=== PATIENT | female | born 1965 | race Caucasian/White ===

== ENCOUNTER 2017-02-02 09:28 | Day surgery (SDC) | payer MEDICAID, SELFPAY | END 2017-02-02 15:00 | disposition home or self-care (01) | PROVIDERS: Family Provider Family Medicine; Visit Provider Anesthesiology | DX: M51.16 Intervertebral disc disorders with radiculopathy, lumbar region (principal) | CPT/HCPCS: 63650 ×2; 63685; 80048; 85025; 96365; C1778; C1820; J3370 ==

== ENCOUNTER → 2017-02-15 10:46 | Outpatient (POV) | payer MEDICAID, SELFPAY ==
[2017-02-15 11:30] VITALS: BP 131/67; PULSE 85; RESP 18; BMI 48.7
--- NOTE | 2017-02-15 11:49 | HMH.PAINSOAP ---
[facility] Pain Management SOAP Note Subjective:: This patient is a pleasant 51-year-old white female who we are treating for low back pain with left leg radicular symptoms. She is 2 weeks out from spinal cord stimulator placement with a [employer] system. She was interrogated today. She has 5 programs through which she cycles. She is doing very well with 80-90% relief of her pain symptoms. She continues to recharge every week. She is much more functional and pain is significantly reduced. Objective:: Alert and oriented ?3 in no acute distress. Incisions are healing very nicely. She does have an abnormal gait. Motor strength of the lower extremities is 5/5. There is no sensory deficit. Spinal cord stimulator system was interrogated by the [employer] energy conservation representative and optimized. 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 Plan:: We will follow-up with her in 1 month. We will reevaluate her symptoms at that time.
--- NOTE | 2017-03-17 09:06 | PC.PHONENOTE ---
Called in prescription for Tramadol HCL 50mg, 1 tablet PO TID with 2 refills to [facility] pharmacy in [place]
== END ==
PROVIDERS: Family Provider Family Medicine; PCP Family Medicine; Visit Provider Anesthesiology
DX: M51.16 Intervertebral disc disorders with radiculopathy, lumbar region (principal); Z96.89 Presence of other specified functional implants
CPT/HCPCS: 99212

== ENCOUNTER → 2017-03-09 13:50 | Outpatient (CLI) | payer MEDICAID, SELFPAY ==
--- NOTE | 2017-03-09 13:56 | XR_ITS ---
XR hip RT 2-3V w/pelvis HISTORY: ITS.REASON: BILAT HIP PAIN ORDERING PHYSICIAN: Dandy Clark MD PATIENT AGE: 51 years COMPARISON: None FINDINGS: No fracture or dislocation is evident. No significant degenerative change. No lytic or blastic change. Unremarkable soft tissues IMPRESSION: Negative right hip
--- NOTE | 2017-03-09 13:56 | XR_ITS ---
XR hip LT 2-3V w/pelvis HISTORY: ITS.REASON: BILAT HIP PAIN ORDERING PHYSICIAN: Dandy Clark MD PATIENT AGE: 51 years COMPARISON: None FINDINGS: Mild osteoarthritic changes are present involving the left hip with osteophyte formation along the infra aspect of the acetabulum. No fracture or dislocation. Facet arthritic changes are present on the left at L5-S1 with degenerative disc disease at L4-L5. Epidural stimulator device is present as well. IMPRESSION: 1. No acute finding. 2. Mild osteoarthritis of the left hip
== END ==
PROVIDERS: PCP Family Medicine; Visit Provider Family Medicine
DX: M25.551 Pain in right hip (principal); M25.552 Pain in left hip
CPT/HCPCS: 73502

== ENCOUNTER → 2017-04-12 10:48 | Outpatient (POV) | payer MEDICAID, SELFPAY ==
[2017-04-12 10:54] VITALS: BP 143/86; PULSE 74; RESP 20; TEMP 36.2; O2SAT 92; BMI 40.4
--- NOTE | 2017-04-12 11:19 | HMH.PAINSOAP ---
[facility] Pain Management SOAP Note Subjective:: This patient is a pleasant 51-year-old white female who presents today for follow-up after her neurostimulator implant. Patient is doing very well and having 80-90% relief of her pain symptoms. Patient however has a new pain on her right hip. Patient has been continually using the spinal cord stimulator at all times. She states she is able to do dishes longer and able to be more active. She is also now ambulating without a cane. Patient is going to be reprogrammed by a [employer] associate financial representative today. Patient is having pain over the right hip which is worse when she walks. It is not radiating. It is focused over the greater trochanteric bursa on her right side. Her primary care physician diagnosed her with greater trochanteric bursitis. Patient is not on any anti-inflammatories at this time. Patient is still taking gabapentin 600 mg 1 p.o. 3 times daily and tramadol 50 p.o. 3 times daily. Patient states that she is not having any side effects to this medications. And it decreases her pain 50-60% with the neurostimulator. Patients [facility] #[id number] reviewed and appropriate. ROS General: no recent weight change, no fever, no sleep disturbances Respiratory: no cough, no shortness of air, no recurring pulmonary infections Cardiovascular/Peripheral Vascular: No chest pain, No palpitations, no edema, no shortness of breath. Gastrointestinal: no incontinence, normal bowel movements reported Genitourinary: no incontinence Musculoskeletal: Back pain, right hip pain Psychiatric: normal mood/ affect, Neurological: [denies weakness in extremities], [denies balance issues] Objective:: Physical Exam General: Alert and oriented x3, no acute distress, pleasant and cooperative, [on room air] Lungs: Resps E/U, Symmetrical chest expansion, Eyes: PERRL Musculoskeletal: Flexion and extension of lumbar spine somewhat guarded secondary to pain, deep tendon reflexes normal, strength in upper and lower extremities [5/5], [abnormal gait noted] Neurological: speech clear, counter pocket sewer equal, no gross sensory deficits Assessment:: Degenerative disc disease of lumbar spine multiple levels with lumbar radiculopathy symptoms Plan:: The patient will be reprogrammed today by the [employer] associate financial representative. I am pleased with her outcome after this neurostimulator implant. We will call in diclofenac 75 mg 1 p.o. twice daily for a month. We will also set her up with a right greater trochanteric bursa injection. This note was dictated using voice recognition software and may contain errors or omissions
--- NOTE | 2017-04-12 11:22 | P.CONS_ITS ---
[facility] Pain Management SOAP Note Subjective:: This patient is a pleasant 51-year-old white female who presents today for follow-up after her neurostimulator implant. Patient is doing very well and having 80-90% relief of her pain symptoms. Patient however has a new pain on her right hip. Patient has been continually using the spinal cord stimulator at all times. She states she is able to do dishes longer and able to be more active. She is also now ambulating without a cane. Patient is going to be reprogrammed by a [employer] assistance representative today. Patient is having pain over the right hip which is worse when she walks. It is not radiating. It is focused over the greater trochanteric bursa on her right side. Her primary care physician diagnosed her with greater trochanteric bursitis. Patient is not on any anti-inflammatories at this time. Patient is still taking gabapentin 600 mg 1 p.o. 3 times daily and tramadol 50 p.o. 3 times daily. Patient states that she is not having any side effects to this medications. And it decreases her pain 50-60% with the neurostimulator. Patients [facility] #[id number] reviewed and appropriate. ROS General: no recent weight change, no fever, no sleep disturbances Respiratory: no cough, no shortness of air, no recurring pulmonary infections Cardiovascular/Peripheral Vascular: No chest pain, No palpitations, no edema, no shortness of breath. Gastrointestinal: no incontinence, normal bowel movements reported Genitourinary: no incontinence Musculoskeletal: Back pain, right hip pain Psychiatric: normal mood/ affect, Neurological: [denies weakness in extremities], [denies balance issues] Objective:: Physical Exam General: Alert and oriented x3, no acute distress, pleasant and cooperative, [ on room air] Lungs: Resps E/U, Symmetrical chest expansion, Eyes: PERRL Musculoskeletal: Flexion and extension of lumbar spine somewhat guarded secondary to pain, deep tendon reflexes normal, strength in upper and lower extremities [5/5], [abnormal gait noted] Neurological: speech clear, picking machine operator equal, no gross sensory deficits Assessment:: Degenerative disc disease of lumbar spine multiple levels with lumbar radiculopathy symptoms Plan:: The patient will be reprogrammed today by the [employer] assistance representative. I am pleased with her outcome after this neurostimulator implant. We will call in diclofenac 75 mg 1 p.o. twice daily for a month. We will also set her up with a right greater trochanteric bursa injection. This note was dictated using voice recognition software and may contain errors or omissions
--- NOTE | 2017-04-13 08:38 | PC.PHONENOTE ---
04/12/17-called in Rx for Diclofenac 75mg BID, no refills to pt pharmacy
--- NOTE | 2017-04-13 10:51 | PC.PHONENOTE ---
callled in Rx for Gabapenting 600mg TID with 2 refills to pt's pharmacy
== END ==
PROVIDERS: Family Provider Family Medicine; PCP Family Medicine; Visit Provider Clinical Nurse Specialist Family Health
DX: M54.16 Radiculopathy, lumbar region (principal)
CPT/HCPCS: 99212

== ENCOUNTER 2017-05-06 13:47 | Day surgery (SDC) | payer MEDICAID, SELFPAY ==
[2017-05-06 13:52] VITALS: BP 112/82; PULSE 85; RESP 24; O2SAT 98; BMI 50.2
--- NOTE | 2017-05-06 14:43 | HMH.PMPROC ---
- Procedure Date: 05/06/17 Time: 14:43 Anesthesiologist:: Nilson Canchola MD Complications:: None Pre-procedure Diagnosis:: Trochanteric bursitis Post-procedure Diagnosis:: Same Indications for Procedure:: This patient is a pleasant 51-year-old white female who we are treating for low back pain and lumbar radiculopathy symptoms. She is doing well with her spinal cord stimulator. She does have tenderness over the right hip. She is tender over the right trochanteric bursa. We will do a right trochanteric bursa injection today. Procedure Details:: Right trochanteric bursa injection under fluoroscopy informed consent was obtained and the risk and benefits of the procedure was explained to the patient. The patient was taken to procedure room and placed prone on the procedure table. The right hip was prepped using ChloraPrep. The skin and subcutis tissues were anesthetized using lidocaine. I placed a 22-gauge spinal needle under fluoroscopic guidance and advanced until it contacted the right greater trochanter. Needle placement was confirmed with dye. After this we injected 5 mL bupivacaine 0.25% and Depo-Medrol 40 mg. Patient tolerated the procedure well with no complications. Plan and Disposition:: We will follow-up with her in 2 weeks. We will reevaluate her symptoms at that time.
[2017-05-06 14:45] VITALS: BP 146/87; PULSE 72; RESP 18
--- NOTE | 2017-05-06 14:46 | P.PCN_ITS ---
- Procedure Date: 05/06/17 Time: 14:43 Anesthesiologist:: Nilson Canchola MD Complications:: None Pre-procedure Diagnosis:: Trochanteric bursitis Post-procedure Diagnosis:: Same Indications for Procedure:: This patient is a pleasant 51-year-old white female who we are treating for low back pain and lumbar radiculopathy symptoms. She is doing well with her spinal cord stimulator. She does have tenderness over the right hip. She is tender over the right trochanteric bursa. We will do a right trochanteric bursa injection today. Procedure Details:: Right trochanteric bursa injection under fluoroscopy informed consent was obtained and the risk and benefits of the procedure was explained to the patient. The patient was taken to procedure room and placed prone on the procedure table. The right hip was prepped using ChloraPrep. The skin and subcutis tissues were anesthetized using lidocaine. I placed a 22- gauge spinal needle under fluoroscopic guidance and advanced until it contacted the right greater trochanter. Needle placement was confirmed with dye. After this we injected 5 mL bupivacaine 0.25% and Depo-Medrol 40 mg. Patient tolerated the procedure well with no complications. Plan and Disposition:: We will follow-up with her in 2 weeks. We will reevaluate her symptoms at that time.
[2017-05-06 14:49] VITALS: BP 145/89; PULSE 78; RESP 18
[2017-05-06 14:52] VITALS: BP 102/38; PULSE 76; O2SAT 98
== END 2017-05-06 15:00 | disposition home or self-care (01) ==
LOC: SC.PAINP 13:47
PROVIDERS: Family Provider Family Medicine; PCP Family Medicine; Visit Provider Anesthesiology
DX: M70.61 Trochanteric bursitis, right hip (principal)
CPT/HCPCS: 20610; J1040; Q9966

== ENCOUNTER → 2017-05-23 11:28 | Outpatient (POV) | payer MEDICAID, SELFPAY ==
[2017-05-23 11:34] VITALS: BP 150/74; PULSE 74; RESP 18; TEMP 36.6; O2SAT 98; BMI 50.2
--- NOTE | 2017-05-23 11:51 | HMH.PAINSOAP ---
[facility] Pain Management SOAP Note Subjective:: The pleasant 51-year-old white female who presents today for follow-up after her right bursa injection. Patient states she had a week of pain relief. Patient is having right bursa pain again. Patient would like to discuss weight loss. Patient currently weighs 340 pounds. Patient does have [employer] later in place she is wondering what can exercise that she can do with this. Patient rates her pain a 6 out of 10 today. Patient states that she is currently doing his home stretching program. She also states that after pancreatitis last year she has been watching her cholesterol and fat intake. ROS General: no recent weight change, no fever, no sleep disturbances Respiratory: no cough, no shortness of air, no recurring pulmonary infections Cardiovascular/Peripheral Vascular: No chest pain, No palpitations, no edema, no shortness of breath. Gastrointestinal: no incontinence, normal bowel movements reported Genitourinary: no incontinence Musculoskeletal: Back pain, bilateral leg pain Psychiatric: normal mood/ affect Neurological: [denies weakness in extremities], [denies balance issues] Objective:: Physical Exam General: Alert and oriented x3, no acute distress, pleasant and cooperative, [on room air] Lungs: Resps E/U, Symmetrical chest expansion, Eyes: PERRL Musculoskeletal: Flexion and extension of lumbar spine somewhat guarded secondary to pain, deep tendon reflexes normal, strength in upper and lower extremities [5/5], [abnormal gait noted] Neurological: speech clear, asthma educator equal, no gross sensory deficits Assessment:: Degenerative disc disease of the lumbar spine, lumbar radiculopathy, greater trochanteric bursitis Plan:: We will schedule physically for the patient in order to help her learn some exercises that she can do for her low back and bilateral leg pain while having a stimulator in place. Patient would like to focus on weight loss and I believe that this will be very beneficial. We will also get her nutritional consult. Patient does have thyroid disorder I discussed that she should follow-up with her primary care physician in order to determine if this is being managed. I will follow-up with this patient in 2 months. This note was dictated using voice recognition software and may contain errors or omissions
--- NOTE | 2017-05-23 11:55 | P.CONS_ITS ---
[facility] Pain Management SOAP Note Subjective:: The pleasant 51-year-old white female who presents today for follow-up after her right bursa injection. Patient states she had a week of pain relief. Patient is having right bursa pain again. Patient would like to discuss weight loss. Patient currently weighs 340 pounds. Patient does have [employer] later in place she is wondering what can exercise that she can do with this. Patient rates her pain a 6 out of 10 today. Patient states that she is currently doing his home stretching program. She also states that after pancreatitis last year she has been watching her cholesterol and fat intake. ROS General: no recent weight change, no fever, no sleep disturbances Respiratory: no cough, no shortness of air, no recurring pulmonary infections Cardiovascular/Peripheral Vascular: No chest pain, No palpitations, no edema, no shortness of breath. Gastrointestinal: no incontinence, normal bowel movements reported Genitourinary: no incontinence Musculoskeletal: Back pain, bilateral leg pain Psychiatric: normal mood/ affect Neurological: [denies weakness in extremities], [denies balance issues] Objective:: Physical Exam General: Alert and oriented x3, no acute distress, pleasant and cooperative, [ on room air] Lungs: Resps E/U, Symmetrical chest expansion, Eyes: PERRL Musculoskeletal: Flexion and extension of lumbar spine somewhat guarded secondary to pain, deep tendon reflexes normal, strength in upper and lower extremities [5/5], [abnormal gait noted] Neurological: speech clear, trip motor operator equal, no gross sensory deficits Assessment:: Degenerative disc disease of the lumbar spine, lumbar radiculopathy, greater trochanteric bursitis Plan:: We will schedule physically for the patient in order to help her learn some exercises that she can do for her low back and bilateral leg pain while having a stimulator in place. Patient would like to focus on weight loss and I believe that this will be very beneficial. We will also get her nutritional consult. Patient does have thyroid disorder I discussed that she should follow- up with her primary care physician in order to determine if this is being managed. I will follow-up with this patient in 2 months. This note was dictated using voice recognition software and may contain errors or omissions
== END ==
PROVIDERS: Family Provider Family Medicine; PCP Family Medicine; Visit Provider Clinical Nurse Specialist Family Health
DX: M54.16 Radiculopathy, lumbar region (principal)
CPT/HCPCS: 99212

== ENCOUNTER → 2017-07-18 11:15 | Outpatient (POV) | payer MEDICAID, SELFPAY ==
[2017-07-18 11:35] VITALS: BP 149/91; PULSE 93; RESP 18; O2SAT 98; BMI 47.4
--- NOTE | 2017-07-18 12:58 | HMH.PAINSOAP ---
[facility] Pain Management SOAP Note Subjective:: Patient is a pleasant 51-year-old white female who presents today for follow-up. Patient has been doing very well with her physical therapy and her [employer] neurostimulator. Patient states that her pain is mainly controlled however she is having a flareup in her bursitis and SI joint pain. Patient is more functional. Patient is done well with injections in the past. Patient is interested in getting a right SI and right bursa injection. I believe that this would be appropriate. Patient states that she is doing well on her gabapentin 600 mg 1 p.o. 3 times daily along with her tramadol 50 mg 1 p.o. 3 times daily. Patient denies side effects to her medication. Patient rates her pain an 8 out of 10 today however it is because she states she had some added responsibility to by taking on a 7 month old . ROS General: no recent weight change, no fever, no sleep disturbances Respiratory: no cough, no shortness of air, no recurring pulmonary infections Cardiovascular/Peripheral Vascular: No chest pain, No palpitations, no edema, no shortness of breath. Gastrointestinal: no incontinence, normal bowel movements reported Genitourinary: no incontinence Musculoskeletal: Right SI joint pain, right greater trochanteric bursa pain Psychiatric: normal mood/ affect Neurological: [denies weakness in extremities], [denies balance issues] Objective:: Physical Exam General: Alert and oriented x3, no acute distress, pleasant and cooperative, [on room air] Lungs: Resps E/U, Symmetrical chest expansion, Eyes: PERRL Musculoskeletal: Flexion and extension of lumbar spine somewhat guarded secondary to pain, deep tendon reflexes normal, strength in upper and lower extremities [5/5], antalgic gait noted, positive Gianni's test on the right side, extreme point tenderness over right greater trochanteric bursa and right SI joint. Neurological: speech clear, instrumentation chemist equal, no gross sensory deficits Assessment:: Sacroiliitis, trochanteric bursitis, degenerative disc disease of lumbar spine with lumbar radiculopathy. Plan:: Is doing well with physical therapy and her neurostimulator. She is to continue on with this. We will schedule her right greater trochanteric bursa injection and a right SI joint injection. I believe that this would be beneficial given her recent flare of symptoms. Patient has tried and failed anti-inflammatories. Patient currently in physical therapy. I will follow-up with the patient after her injections. We will refill the patient's gabapentin and tramadol. Patient's [facility] #[id number] reviewed and appropriate. DR Canchola has reviewed this chart and agrees with this plan of care. This note was dictated using voice recognition software and may contain errors or omissions
--- NOTE | 2017-07-18 13:01 | P.CONS_ITS ---
[facility] Pain Management SOAP Note Subjective:: Patient is a pleasant 51-year-old white female who presents today for follow- up. Patient has been doing very well with her physical therapy and her [email or web address] neurostimulator. Patient states that her pain is mainly controlled however she is having a flareup in her bursitis and SI joint pain. Patient is more functional. Patient is done well with injections in the past. Patient is interested in getting a right SI and right bursa injection. I believe that this would be appropriate. Patient states that she is doing well on her gabapentin 600 mg 1 p.o. 3 times daily along with her tramadol 50 mg 1 p.o. 3 times daily. Patient denies side effects to her medication. Patient rates her pain an 8 out of 10 today however it is because she states she had some added responsibility to by taking on a 7 month old infant. ROS General: no recent weight change, no fever, no sleep disturbances Respiratory: no cough, no shortness of air, no recurring pulmonary infections Cardiovascular/Peripheral Vascular: No chest pain, No palpitations, no edema, no shortness of breath. Gastrointestinal: no incontinence, normal bowel movements reported Genitourinary: no incontinence Musculoskeletal: Right SI joint pain, right greater trochanteric bursa pain Psychiatric: normal mood/ affect Neurological: [denies weakness in extremities], [denies balance issues] Objective:: Physical Exam General: Alert and oriented x3, no acute distress, pleasant and cooperative, [ on room air] Lungs: Resps E/U, Symmetrical chest expansion, Eyes: PERRL Musculoskeletal: Flexion and extension of lumbar spine somewhat guarded secondary to pain, deep tendon reflexes normal, strength in upper and lower extremities [5/5], antalgic gait noted, positive Gianni's test on the right side , extreme point tenderness over right greater trochanteric bursa and right SI joint. Neurological: speech clear, stationary plant operators equal, no gross sensory deficits Assessment:: Sacroiliitis, trochanteric bursitis, degenerative disc disease of lumbar spine with lumbar radiculopathy. Plan:: Is doing well with physical therapy and her neurostimulator. She is to continue on with this. We will schedule her right greater trochanteric bursa injection and a right SI joint injection. I believe that this would be beneficial given her recent flare of symptoms. Patient has tried and failed anti-inflammatories. Patient currently in physical therapy. I will follow-up with the patient after her injections. We will refill the patient's gabapentin and tramadol. Patient's [facility] #[id number] reviewed and appropriate. DR Canchola has reviewed this chart and agrees with this plan of care. This note was dictated using voice recognition software and may contain errors or omissions
== END ==
PROVIDERS: Family Provider Family Medicine; PCP Family Medicine; Visit Provider Clinical Nurse Specialist Family Health
DX: M46.1 Sacroiliitis, not elsewhere classified (principal); M70.61 Trochanteric bursitis, right hip
CPT/HCPCS: 99212

== ENCOUNTER 2017-08-12 14:00 | Outpatient (RCR) | payer MEDICARE, MEDICAID, SELFPAY | END 2017-08-12 14:01 | disposition home or self-care (01) | LOC: PT 14:00 | PROVIDERS: Family Provider Family Medicine; PCP Family Medicine; Visit Provider Anesthesiology | DX: M54.5 Low back pain (principal); M79.605 Pain in left leg; M79.604 Pain in right leg | CPT/HCPCS: 97010; 97110; 97140; 97164 ==

== ENCOUNTER → 2017-08-22 15:47 | Outpatient (POV) | payer MEDICAID, SELFPAY ==
[2017-08-22 16:03] VITALS: BP 140/60; PULSE 86; RESP 18; O2SAT 98; BMI 50.2
--- NOTE | 2017-08-23 08:56 | HMH.PAINSOAP ---
[facility] Pain Management SOAP Note Subjective:: Patient is a pleasant 51-year-old white female who we are treating for SI joint pain. Patient following up after right trochanteric bursa injection and right SI joint injection. Patient is doing well for this. Patient states she is having some pain over her left SI joint now. Patient's currently on gabapentin and tramadol and also has a [employer] neurostimulator. Patient and I discussed if she wanted to have another injection and she stated she would like to try to take some oral steroids prior to deciding if she needs an injection. I believe that this would be beneficial. Patient rates her pain a 6 out of 10 today. ROS General: no recent weight change, no fever, no sleep disturbances Respiratory: no cough, no shortness of air, no recurring pulmonary infections Cardiovascular/Peripheral Vascular: No chest pain, No palpitations, no edema, no shortness of breath. Gastrointestinal: no incontinence, normal bowel movements reported Genitourinary: no incontinence Musculoskeletal: Left SI joint pain Psychiatric: normal mood/ affect Neurological: [denies weakness in extremities], [denies balance issues] Objective:: Physical Exam General: Alert and oriented x3, no acute distress, pleasant and cooperative, [on room air] Lungs: Resps E/U, Symmetrical chest expansion Eyes: PERRL Musculoskeletal: Flexion and extension of lumbar spine somewhat guarded secondary to pain, deep tendon reflexes normal, strength in upper and lower extremities [5/5], [abnormal gait noted] a positive Gianni's test on the left side Neurological: speech clear, dope house operator helper equal, no gross sensory deficits Assessment:: Sacroiliitis, Plan:: We will refill the patient's tramadol 50 mg 1 p.o. 3 times daily and gabapentin 600 mg 1 p.o. 3 times daily. We will also call in prednisone 20 mg 2 tabs p.o. for 5 days. If the patient decides that she would like a left SI joint injection she can call our office if not she is to follow-up in 3 months. Patient's [facility] #[id number] reviewed and appropriate. Dr. Canchola is reviewed this chart and agrees with this plan of care. Patient has been prescribed a controlled substance after being counseled on the medication, medication safety, and possible side effects. [facility] report has been obtained and reviewed prior to prescription and found to be appropriate. Opioid contract was reviewed and signed by the patient, and that they have agreed to all of the terms set forth by our compliance program. This note was dictated using voice recognition software and may contain errors or omissions
--- NOTE | 2017-08-23 08:59 | P.CONS_ITS ---
[facility] Pain Management SOAP Note Subjective:: Patient is a pleasant 51-year-old white female who we are treating for SI joint pain. Patient following up after right trochanteric bursa injection and right SI joint injection. Patient is doing well for this. Patient states she is having some pain over her left SI joint now. Patient's currently on gabapentin and tramadol and also has a [employer] neurostimulator. Patient and I discussed if she wanted to have another injection and she stated she would like to try to take some oral steroids prior to deciding if she needs an injection. I believe that this would be beneficial. Patient rates her pain a 6 out of 10 today. ROS General: no recent weight change, no fever, no sleep disturbances Respiratory: no cough, no shortness of air, no recurring pulmonary infections Cardiovascular/Peripheral Vascular: No chest pain, No palpitations, no edema, no shortness of breath. Gastrointestinal: no incontinence, normal bowel movements reported Genitourinary: no incontinence Musculoskeletal: Left SI joint pain Psychiatric: normal mood/ affect Neurological: [denies weakness in extremities], [denies balance issues] Objective:: Physical Exam General: Alert and oriented x3, no acute distress, pleasant and cooperative, [ on room air] Lungs: Resps E/U, Symmetrical chest expansion Eyes: PERRL Musculoskeletal: Flexion and extension of lumbar spine somewhat guarded secondary to pain, deep tendon reflexes normal, strength in upper and lower extremities [5/5], [abnormal gait noted] a positive Gianni's test on the left side Neurological: speech clear, conductor symphonic orchestra equal, no gross sensory deficits Assessment:: Sacroiliitis, Plan:: We will refill the patient's tramadol 50 mg 1 p.o. 3 times daily and gabapentin 600 mg 1 p.o. 3 times daily. We will also call in prednisone 20 mg 2 tabs p.o. for 5 days. If the patient decides that she would like a left SI joint injection she can call our office if not she is to follow-up in 3 months. Patient's BINTA #[id number] reviewed and appropriate. Dr. Canchola is reviewed this chart and agrees with this plan of care. Patient has been prescribed a controlled substance after being counseled on the medication, medication safety, and possible side effects. BINTA report has been obtained and reviewed prior to prescription and found to be appropriate. Opioid contract was reviewed and signed by the patient, and that they have agreed to all of the terms set forth by our compliance program. This note was dictated using voice recognition software and may contain errors or omissions
== END ==
PROVIDERS: Family Provider Family Medicine; PCP Family Medicine; Visit Provider Clinical Nurse Specialist Family Health
DX: M46.1 Sacroiliitis, not elsewhere classified (principal)
CPT/HCPCS: 99212

== ENCOUNTER → 2017-11-14 10:25 | Outpatient (POV) | payer MEDICARE, MEDICAID, SELFPAY ==
[2017-11-14 12:25] VITALS: BP 115/60; PULSE 81; RESP 18; O2SAT 98; BMI 50.2
--- NOTE | 2017-11-14 12:42 | HMH.PAINSOAP ---
[facility] Pain Management SOAP Note Subjective:: Patient is a pleasant 52-year-old white female who we are treating for SI joint pain. Patient has been doing well however lately her SI joints have been bothering her. Patient also has pinpoint pain over her right greater trochanteric bursa. Patient is currently on tramadol 50 mg 1 p.o. 3 times daily and gabapentin 600 mg 1 p.o. 3 times daily. Patient's BINTA reviewed and appropriate. She rates her pain a 6 out of 10 today. ROS General: no recent weight change, no fever, no sleep disturbances Respiratory: no cough, no shortness of air, no recurring pulmonary infections Cardiovascular/Peripheral Vascular: No chest pain, No palpitations, no edema, no shortness of breath. Gastrointestinal: no incontinence, normal bowel movements reported Genitourinary: no incontinence Musculoskeletal: Right SI joint pain, right greater trochanteric bursa pain Psychiatric: normal mood/ affect, Neurological: [denies weakness in extremities], [denies balance issues] Objective:: Physical Exam General: Alert and oriented x3, no acute distress, pleasant and cooperative, [on room air] Lungs: Resps E/U, Symmetrical chest expansion, Eyes: PERRL Musculoskeletal: Flexion and extension of lumbar spine somewhat guarded secondary to pain, deep tendon reflexes normal, strength in upper and lower extremities [5/5], [abnormal gait noted] positive Gianni's test on the right side extreme point tenderness over right greater trochanteric bursa Neurological: speech clear, application support technician equal, no gross sensory deficits Assessment:: Sacroiliitis, bursitis Plan:: We will schedule right SI joint injection and a right greater trochanteric bursa injection we will refill her tramadol 50 mg 1 p.o. 3 times daily and her gabapentin 600 mg [address] Canchola is reviewed this chart and agrees with this plan of care. I will follow-up with the patient after her injections. Patient has been prescribed a controlled substance after being counseled on the medication, medication safety, and possible side effects. BINTA report has been obtained and reviewed prior to prescription and found to be appropriate. Opioid contract was reviewed and signed by the patient, and that they have agreed to all of the terms set forth by our compliance program. This note was dictated using voice recognition software and may contain errors or omissions
== END ==
PROVIDERS: Family Provider Family Medicine; PCP Family Medicine; Visit Provider Clinical Nurse Specialist Family Health
DX: M46.1 Sacroiliitis, not elsewhere classified (principal); M71.9 Bursopathy, unspecified
CPT/HCPCS: 99213

== ENCOUNTER → 2017-12-20 09:47 | Outpatient (POV) | payer MEDICARE, MEDICAID, SELFPAY ==
[2017-12-20 10:07] VITALS: BP 141/81; PULSE 82; RESP 18; O2SAT 98; BMI 47.4
--- NOTE | 2017-12-20 10:26 | P.CONS_ITS ---
[facility] Pain Management SOAP Note Subjective:: Patient is a pleasant 52-year-old white female who presents today for follow-up after SI joint injection bursa injection. Patient states her hip is doing much better however she is having overall pain and she rates her pain a 6 out of 10. Patient does have a neurostimulator which she states works very well for her. Patient is also on tramadol 50 mg 1 p.o. 3 times daily and gabapentin 600 mg 1 p.o. 3 times daily. Patient states she is having difficulty sleeping at nighttime. Patient's BINTA #[id number] reviewed. ROS General: no recent weight change, no fever, no sleep disturbances Respiratory: no cough, no shortness of air, no recurring pulmonary infections Cardiovascular/Peripheral Vascular: No chest pain, No palpitations, no edema, no shortness of breath. Gastrointestinal: no incontinence, normal bowel movements reported Genitourinary: no incontinence Musculoskeletal: Generalized pain Psychiatric: normal mood/ affect Neurological: [denies weakness in extremities], [denies balance issues] Objective:: Physical Exam General: Alert and oriented x3, no acute distress, pleasant and cooperative, on room air Lungs: Resps E/U, Symmetrical chest expansion, Eyes: PERRL Musculoskeletal: Flexion and extension of lumbar spine somewhat guarded secon jess to pain, deep tendon reflexes normal, strength in upper and lower extremities [5/5], [abnormal gait noted] Neurological: speech clear, endoscopic technician equal, no gross sensory deficits Assessment:: Degenerative disc disease lumbar spine with lumbar radiculopathy and sacroiliitis Plan:: We will increase her gabapentin 600 mg to 4 times a day. She is going to take 2 pills at nighttime to see if this benefits her sleeping. We will follow-up with her in 3 months and reassess her symptoms at that time. Patient has been instructed to call the office if she has any issues prior to her next appointment. This note was dictated using voice recognition software and may contain errors or omissions
== END ==
PROVIDERS: PCP Family Medicine; Visit Provider Clinical Nurse Specialist Family Health
DX: M51.16 Intervertebral disc disorders with radiculopathy, lumbar region (principal); M46.1 Sacroiliitis, not elsewhere classified
CPT/HCPCS: 99213

== ENCOUNTER → 2018-01-30 12:40 | Outpatient (POV) | payer MEDICARE, SELFPAY ==
--- NOTE | 2018-01-30 13:23 | XR_ITS ---
XR sacroiliac joint BI min 3V, XR hip LT 2-3V w/pelvis Ordering Physician: Valeria Madrigal Patient Age: 52 years: Female HISTORY: ITS.REASON: BURSITIS Bursitis. Sacroiliitis. Left hip pain. Pelvic pain. TECHNIQUE: SI joints: AP and lateral views of SI joints. . Left hip: AP and frog-leg view AP pelvis: Single AP radiograph COMPARISON :CT abdomen pelvis from 01/04/2018 also left hip with AP pelvis March 09, 2017. . SI JOINTS SI joints remain patent intact. No ankylosis. Trace asymmetric sclerosis along the lateral margin of the inferior left SI joint unimpressive and most likely mild degenerative changes. Sacrum appears intact on these views. Incidental note Stimulator device noted overlying the left buttock with leads extending into the lower L-spine . ======== LEFT HIP. WITH AP PELVIS The left hip is intact joint space well maintained. Femoral head normal contour and density... No AVN Large patient. Acetabulum satisfactory. AP pelvis. Osseous pelvis intact otherwise unremarkable. Postsurgical changes pelvis right hip intact. IMPRESSION 1. AP pelvis and SI joints intact-no significant findings. (Scant sclerosis along the iliac margin inferior SI joints and not felt to be of significance.) Left hip intact.: Negative
[2018-01-30 14:08] VITALS: BP 150/88; PULSE 88; RESP 18; O2SAT 98; BMI 52.4
--- NOTE | 2018-01-31 08:30 | HMH.PAINSOAP ---
[facility] Pain Management SOAP Note Subjective:: She is a pleasant 52-year-old white female who presents today for follow-up and neurostimulator reprogramming. Patient was seen by the [facility] internet sales representative. Patient states most of her pain is in her bilateral SI joints and left hip. She rates her pain a 7 out of 10 today. She is on tramadol 50 mg 1 p.o. 3 times daily and gabapentin 600 mg 1 p.o. 4 times daily. Patient has had good relief from injections in the past however she is unable to decide if it is her hip giving her problems are her SI joint giving her problems. ROS General: no recent weight change, no fever, no sleep disturbances Respiratory: no cough, no shortness of air, no recurring pulmonary infections Cardiovascular/Peripheral Vascular: No chest pain, No palpitations, no edema, no shortness of breath. Gastrointestinal: no incontinence, normal bowel movements reported Genitourinary: no incontinence Musculoskeletal: SI joint pain, left hip pain Psychiatric: normal mood/ affect Neurological: [denies weakness in extremities], [denies balance issues] Objective:: Physical Exam General: Alert and oriented x3, no acute distress, pleasant and cooperative, Lungs: Resps E/U, Symmetrical chest expansion, [CTA bilateral] Eyes: PERRL Musculoskeletal: Flexion and extension of lumbar spine somewhat guarded secondary to pain, deep tendon reflexes normal, strength in upper and lower extremities [5/5], abnormal gait noted, positive Gianni's test bilaterally Neurological: speech clear, parks worker equal, no gross sensory deficits Assessment:: Degenerative disc disease lumbar spine with lumbar radiculopathy and sacroiliitis Plan:: We will schedule her for bilateral SI joint injections. We will also get an x-ray of her left hip and her lateral SI joints. This note was dictated using voice recognition software and may contain errors or omissions
--- NOTE | 2018-01-31 08:34 | P.CONS_ITS ---
[facility] Pain Management SOAP Note Subjective:: She is a pleasant 52-year-old white female who presents today for follow-up and neurostimulator reprogramming. Patient was seen by the [facility] civil rights representative. Patient states most of her pain is in her bilateral SI joints and left hip. She rates her pain a 7 out of 10 today. She is on tramadol 50 mg 1 p.o. 3 times daily and gabapentin 600 mg 1 p.o. 4 times daily. Patient has had good relief from injections in the past however she is unable to decide if it is her hip giving her problems are her SI joint giving her problems. ROS General: no recent weight change, no fever, no sleep disturbances Respiratory: no cough, no shortness of air, no recurring pulmonary infections Cardiovascular/Peripheral Vascular: No chest pain, No palpitations, no edema, no shortness of breath. Gastrointestinal: no incontinence, normal bowel movements reported Genitourinary: no incontinence Musculoskeletal: SI joint pain, left hip pain Psychiatric: normal mood/ affect Neurological: [denies weakness in extremities], [denies balance issues] Objective:: Physical Exam General: Alert and oriented x3, no acute distress, pleasant and cooperative, Lungs: Resps E/U, Symmetrical chest expansion, [CTA bilateral] Eyes: PERRL Musculoskeletal: Flexion and extension of lumbar spine somewhat guarded secondary to pain, deep tendon reflexes normal, strength in upper and lower extremities [5/5], abnormal gait noted, positive Gianni's test bilaterally Neurological: speech clear, early childhood associate equal, no gross sensory deficits Assessment:: Degenerative disc disease lumbar spine with lumbar radiculopathy and sacroiliitis Plan:: We will schedule her for bilateral SI joint injections. We will also get an x- ray of her left hip and her lateral SI joints. This note was dictated using voice recognition software and may contain errors or omissions
--- NOTE | 2018-03-13 10:12 | PC.NURSE ---
TRAMADOL 50MG TID, GABAPENTIN 600MG TID WITH 2 REFILLS CALLED INTO [facility] PER PROVIDER ORDER
== END ==
PROVIDERS: PCP Family Medicine; Visit Provider Clinical Nurse Specialist Family Health
DX: M51.16 Intervertebral disc disorders with radiculopathy, lumbar region (principal); M46.1 Sacroiliitis, not elsewhere classified; Z96.89 Presence of other specified functional implants
CPT/HCPCS: 72202; 73502; 99213

== ENCOUNTER → 2018-02-20 15:12 | Outpatient (POV) | payer MEDICARE, SELFPAY ==
[2018-02-20 16:37] LABS: Alanine Aminotransferase 25 U/L (12-78); Albumin Level 2.9 gm/dL (3.4-5.0); Albumin/Globulin Ratio 0.6 (1.1-1.8); Alkaline Phosphatase 112 U/L (46-116); Amylase 113 U/L (25-115); Anion Gap 15.1 mEq/L (5-15); Aspartate Amino Transferase 13 U/L (15-37); Basophils # 0.1 K/mm3 (0-0.2); Basophils % 0.5 % (0.1-2.0); Bilirubin,Total 0.2 mg/dL (0.2-1.0); Blood Urea Nitrogen 20 mg/dL (7-18); Calcium 8.3 mg/dL (8.5-10.1); Carbon Dioxide 25 mmol/L (21.0-32.0); Chloride 105 mmol/L (98-107); Creatinine,Serum 1.21 mg/dL (0.55-1.02); Eosinophils # 0.2 K/mm3 (0.0-0.4); Eosinophils % 2.4 % (0.1-12.0); Estimated Glomerular Filt Rate 46 ml/min (>60); GFR (African American) 56 ML/MIN (>60); Glucose 105 mg/dL (74-106); Hematocrit 40.3 % (37.0-47.0); Hemoglobin 12.8 g/dL (12.2-16.2); Lipase 201 u/L (73-393); Lymphocytes # 1.3 K/mm3 (0.7-4.5); Lymphocytes % 13.4 % (10-50); Mean Corpuscular HGB Conc 31.8 g/dL (31.8-35.4); Mean Corpuscular Hemoglobin 28.5 pg (27.0-31.2); Mean Corpuscular Volume 89.7 fl (81-99); Mean Platelet Volume 6.9 fl (7.4-10.4); Monocytes # 0.4 K/mm3 (0.1-1.0); Neutrophils # 7.7 K/mm3 (1.8-7.8); Neutrophils % 79.7 % (37.0-80.0); Platelet Count 422 K/mm3 (142-424); Potassium 4.1 mmoL/L (3.5-5.1); Red Cell Distribution Width 15.9 % (11.5-17.5); Sodium 141 mmol/L (136-145); Total Protein,Serum 7.9 gm/dL (6.4-8.2); White Blood Count 9.7 K/mm3 (4.8-10.8)
== END ==
PROVIDERS: PCP Family Medicine; Visit Provider Nurse Practitioner Acute Care
DX: R10.9 Unspecified abdominal pain (principal)
CPT/HCPCS: 36415; 80053; 82150; 83690; 85025

== ENCOUNTER → 2018-04-10 12:42 | Outpatient (POV) | payer MEDICARE, SELFPAY ==
[2018-04-10 12:57] VITALS: BP 124/73; PULSE 97; RESP 18; O2SAT 98; BMI 49.4
--- NOTE | 2018-04-10 13:25 | P.CONS_ITS ---
[facility] Pain Management SOAP Note Subjective:: Patient is a pleasant 52-year-old white female who presents today for follow-up after bilateral SI joint injections. Patient still having quite a bit of left hip pain. Patient rates her pain a 6 out of 10. Patient has recently lost 6 pounds. Patient and I had a discussion about getting a an evaluation by an orthopedic surgeon. She is interested in this. ROS General: no recent weight change, no fever, no sleep disturbances Respiratory: no cough, no shortness of air, no recurring pulmonary infections Cardiovascular/Peripheral Vascular: No chest pain, No palpitations, no edema, no shortness of breath. Gastrointestinal: no incontinence, normal bowel movements reported Genitourinary: no incontinence Musculoskeletal: Low back pain, hip pain Psychiatric: normal mood/ affect Neurological: [denies weakness in extremities], [denies balance issues] Objective:: Physical Exam General: Alert and oriented x3, no acute distress, pleasant and cooperative, [on room air] Lungs: Resps E/U, Symmetrical chest expansion, Eyes: PERRL Musculoskeletal: Flexion and extension of lumbar spine somewhat guarded secondary to pain, deep tendon reflexes normal, strength in upper and lower extremities [5/5], [abnormal gait noted] Neurological: speech clear, jerker equal, no gross sensory deficits Assessment:: Sacroiliitis, bilateral hip pain, degenerative disc disease lumbar spine Plan:: We will send the patient for an orthopedic consultation. We will follow-up with the patient after her visit and reassess her at that time. Dr. Canchola has reviewed this note and agrees with this plan of care. This note was dictated using voice recognition software and may contain errors or omissions
== END ==
PROVIDERS: PCP Family Medicine; Visit Provider Clinical Nurse Specialist Family Health
DX: M46.1 Sacroiliitis, not elsewhere classified (principal); M51.36 Other intervertebral disc degeneration, lumbar region; M25.551 Pain in right hip; M25.552 Pain in left hip
CPT/HCPCS: 99213

== ENCOUNTER → 2018-05-01 14:09 | Outpatient (CLI) | payer MEDICARE, SELFPAY ==
--- NOTE | 2018-05-01 14:17 | XR_ITS ---
XR hip RT 2-3V w/pelvis Ordering Physician: Jessica Marinelli MD Patient Age: 52 years: Female HISTORY: ITS.REASON: right hip pain Right hip pain for many years. Large patient. TECHNIQUE: ...... RIGHT HIP: AP and frog-leg view ... AP Pelvis Included COMPARISON :March 09, 2017 right hip radiograph also SI joints from 01/30/2018 FINDINGS RIGHT HIP appears stable and intact with no change since prior study. The right femoral head and neck appear intact. Femoral head with normal contour. Joint space well maintained.. Slight roughening at the cap of greater trochanter. Small areas of calcification along posterior calf of the greater trochanter near ligamentous insertion were seen seen previously. AP pelvis. Osseous pelvis is intact. No lesions. Sacrum, SI joints, iliac bone and pubis unremarkable. Bones fairly well mineralized. The patient's large size does degrades image quality/resolution somewhat, but adequate quality studies. The hips appear symmetric. Degenerative disc changes, fairly pronounced at L4/5- to the right more so than left. Postsurgical changes at pelvis. Neurostimulator device partially imaged overlying the lower back IMPRESSION: 1.... Right hip, intact. No fracture. No significant change. 2. Osseous pelvis intact. 3. Degenerative disc changes L4/5
== END ==
PROVIDERS: PCP Family Medicine; Visit Provider Orthopaedic Surgery
DX: M25.551 Pain in right hip (principal)
CPT/HCPCS: 73502

== ENCOUNTER → 2018-05-08 10:19 | Outpatient (POV) | payer MEDICARE, SELFPAY ==
[2018-05-08 11:06] VITALS: BP 123/56; PULSE 75; RESP 18; O2SAT 98; BMI 49.4
--- NOTE | 2018-05-09 08:41 | P.CONS_ITS ---
[facility] Pain Management SOAP Note Subjective:: She has a pleasant 52-year-old white female who presents today for follow-up. Patient states that her pain is quite a bit worse. Patient is still struggling with losing weight. We had a long discussion about healthy eating habits. She is going to continue to try to lose weight. She has been seen by orthopedic. She is can continue physical therapy. She rates her pain today a 6 out of 10. ROS General: no recent weight change, no fever, no sleep disturbances Respiratory: no cough, no shortness of air, no recurring pulmonary infections Cardiovascular/Peripheral Vascular: No chest pain, No palpitations, no edema, no shortness of breath. Gastrointestinal: no incontinence, normal bowel movements reported Genitourinary: no incontinence Musculoskeletal: Low back pain, hip pain Psychiatric: normal mood/ affect Neurological: [denies weakness in extremities], [denies balance issues] Objective:: Physical Exam General: Alert and oriented x3, no acute distress, pleasant and cooperative, [on room air] Lungs: Resps E/U, Symmetrical chest expansion, Eyes: PERRL Musculoskeletal: Flexion and extension of lumbar spine somewhat guarded secondary to pain, deep tendon reflexes normal, strength in upper and lower extremities [5/5], [abnormal gait noted] Neurological: speech clear, audience coordinator equal, no gross sensory deficits Assessment:: Degenerative disc disease lumbar spine with lumbar radiculopathy, bilateral hip pain, sacroiliitis Plan:: Patient is going to continue to try to lose weight we will follow-up with her in 1 month and reassess her symptoms at that time. She is going to continue with her exercising. Patient does have a [employer] stimulator. We will have them come and reprogram her. Dr. Canchola has reviewed this note and agrees with this plan of care. This note was dictated using voice recognition software and may contain errors or omissions
--- NOTE | 2018-05-22 10:21 | PC.NURSE ---
90 DAY SUPPLY OF FLEXERIL 10MG TID AND DICLOFENAC 75MG BID WITH 1 REFILL CALLED INTO [facility] PER PROVIDER ORDER
== END ==
PROVIDERS: PCP Family Medicine; Visit Provider Clinical Nurse Specialist Family Health
DX: M51.16 Intervertebral disc disorders with radiculopathy, lumbar region (principal); M46.1 Sacroiliitis, not elsewhere classified; M25.551 Pain in right hip; M25.552 Pain in left hip
CPT/HCPCS: 99213

== ENCOUNTER → 2018-05-30 13:43 | Outpatient (POV) | payer MEDICARE, MEDICAID, SELFPAY ==
[2018-05-30 14:21] VITALS: BP 169/87; PULSE 94; RESP 22; O2SAT 95; BMI 50.2
--- NOTE | 2018-05-30 14:34 | HMH.PAINSOAP ---
[facility] Pain Management SOAP Note Subjective:: Pleasant 52-year-old white female who presents today for follow-up. Patient still having increased pain. She has been doing physical therapy. Patient rates her pain a 6 out of 10 today. She has met with the branch customer service representative from [employer] today to have her stimulator reprogrammed. ROS General: no recent weight change, no fever, no sleep disturbances Respiratory: no cough, no shortness of air, no recurring pulmonary infections Cardiovascular/Peripheral Vascular: No chest pain, No palpitations, no edema, no shortness of breath. Gastrointestinal: no incontinence, normal bowel movements reported Genitourinary: no incontinence Musculoskeletal: Back pain, leg pain Psychiatric: normal mood/ affect Neurological: [denies weakness in extremities], [denies balance issues] Objective:: Physical Exam General: Alert and oriented x3, no acute distress, pleasant and cooperative, [on room air] Lungs: Resps E/U, Symmetrical chest expansion, Eyes: PERRL Musculoskeletal: Flexion and extension of lumbar spine somewhat guarded secondary to pain, deep tendon reflexes normal, strength in upper and lower extremities [5/5], [abnormal gait noted] Neurological: speech clear, fleet sales associate equal, no gross sensory deficits Assessment:: Degenerative disc disease lumbar spine with lumbar radiculopathy Plan:: We will schedule the patient had a lumbar MRI patient states she has not had one recently. We will follow-up with the patient after her MRI reassess her symptoms at that time. Dr. Canchola has reviewed this note and agrees with this plan of care. This note was dictated using voice recognition software and may contain errors or omissions
--- NOTE | 2018-05-30 14:38 | P.CONS_ITS ---
[facility] Pain Management SOAP Note Subjective:: Pleasant 52-year-old white female who presents today for follow-up. Patient still having increased pain. She has been doing physical therapy. Patient rates her pain a 6 out of 10 today. She has met with the employee relations representative from [employer] today to have her stimulator reprogrammed. ROS General: no recent weight change, no fever, no sleep disturbances Respiratory: no cough, no shortness of air, no recurring pulmonary infections Cardiovascular/Peripheral Vascular: No chest pain, No palpitations, no edema, no shortness of breath. Gastrointestinal: no incontinence, normal bowel movements reported Genitourinary: no incontinence Musculoskeletal: Back pain, leg pain Psychiatric: normal mood/ affect Neurological: [denies weakness in extremities], [denies balance issues] Objective:: Physical Exam General: Alert and oriented x3, no acute distress, pleasant and cooperative, [on room air] Lungs: Resps E/U, Symmetrical chest expansion, Eyes: PERRL Musculoskeletal: Flexion and extension of lumbar spine somewhat guarded secondary to pain, deep tendon reflexes normal, strength in upper and lower extremities [5/5], [abnormal gait noted] Neurological: speech clear, aircraft machinist equal, no gross sensory deficits Assessment:: Degenerative disc disease lumbar spine with lumbar radiculopathy Plan:: We will schedule the patient had a lumbar MRI patient states she has not had one recently. We will follow-up with the patient after her MRI reassess her symptoms at that time. Dr. Canchola has reviewed this note and agrees with this plan of care. This note was dictated using voice recognition software and may contain errors or omissions
== END ==
PROVIDERS: PCP Family Medicine; Visit Provider Clinical Nurse Specialist Family Health
DX: M51.16 Intervertebral disc disorders with radiculopathy, lumbar region (principal)
CPT/HCPCS: 99212

== ENCOUNTER 2018-07-06 08:00 | Outpatient (RCR) | payer MEDICARE, MEDICAID, SELFPAY ==
--- NOTE | 2018-05-15 11:10 | HMH.PTOPEV ---
PT Outpatient Evaluation Rehab PT Outpatient Evaluation Start: 05/15/18 10:16 Freq: Status: Active Protocol: Document 05/15/18 10:16 NE (Rec: 05/15/18 11:10 NE [id number]) Electronically Signed By Danny Robb, PT 05/15/18 10:16 Outpatient Therapy Subjective History Subjective History Pt reports h/o chronic B hip and LBP for ~10 yrs, with most recent exacerbation beginning ~2 months ago. Pt reports insidious onset severe B hip ( lateral) pain, sheryl. w/ sidelying. PMH: lumbar spine nn stimulator/pain relief, spinal stenosis, OA Chief Complaint Pain Stiff Weakness Symptom Type Ache Throb Sharp Dull Symptoms Relieved By Rest/Positioning Heat Symptoms Aggravated By Sitting Standing Physical Activity Twisting Walking Prior Functional Limitations Lifting Housework Standing Sitting Walking Current Functional Limitations Lifting Housework Standing Sitting Walking Symptom Description Constant but Variable Level of pain today (0-10) 3 Pain scale - at its best (0-10) 2 Pain scale - at its worst (0-10) 10 Hip/Knee Eval Gait Observation General Gait Pattern Observation Antalgic Gait Assistive Device Assistive Devices None / NA Palpation Tenderness bilateral Knee Palpation Overall Comment 3/4 B GRT. TRO. AND PIRI. MM Hip Palpation Findings Tenderness MMT Hip Flexion Strength Grade 4- Good- Hip Abduction Strength Grade 4- Good- Hip Adduction Strength Grade 4- Good- Hip Extension Strength Grade 4- Good- Hip External Rotation Strength Grade 4- Good- Hip Internal Rotation Strength Grade 4- Good- Knee Extension Strength Grade 4 Good Knee Flexion Strength Grade 4 Good ROM Hip Flexion w/Knee Flexed Active Range 0-90 of Motion (degrees) Hip Flexion w/Knee Flexed Passive Range 0-100 of Motion (degrees) Hip External Rotation Active Range of 0-20 Motion (degrees)
== END 2018-07-06 08:05 | disposition home or self-care (01) ==
LOC: PT 08:00
PROVIDERS: Visit Provider Orthopaedic Surgery
DX: M70.61 Trochanteric bursitis, right hip (principal); M70.62 Trochanteric bursitis, left hip
CPT/HCPCS: 97010; 97014; 97033; 97035; 97110; 97163; G0283

== ENCOUNTER → 2018-07-24 07:47 | Outpatient (CLI) | payer MEDICARE, MEDICAID, SELFPAY ==
--- NOTE | 2018-07-24 07:56 | MR_ITS ---
MR lumbar spine wo con, MR 3-d myelogram/MRCP HISTORY: LBP X years. Bilateral hip and leg pain, numbness and tingling . ITS.REASON: BACK PAIN ORDERING PHYSICIAN: Valeria Madrigal APRN PATIENT AGE: 52 years Comparison: MRI 03/12/16 TECHNIQUE: Standard multiplanar multiecho sequences are performed without contrast. 3-D MIP and myelographic images are also rendered and reviewed FINDINGS: There is normal alignment. There is mild degenerative disc disease at T12-L1. There is a spinal stimulator present entering at the L2-L3 region on the right with artifact from a stimulator device. L1-L2: Unremarkable. L2-L3: Mild facet and ligamentum flavum hypertrophy. L3-L4: Mild facet and ligamentum flavum hypertrophy. L4-L5: There is degenerative disc disease with bulging disc with endplate hypertrophic changes along with facet and ligamentum flavum hypertrophy. There is moderate to severe bilateral lateral recess and foraminal narrowing. Mild broad-based left paracentral disc protrusion is present as before.. There is borderline canal stenosis. L5-S1: Mild facet and ligamentum flavum hypertrophy with mild left-sided foraminal narrowing. IMPRESSION: 1. Overall no significant change in the multilevel facet and ligamentum hypertrophy with lateral recess and foraminal narrowing. 2. Degenerative disc disease L4-5 with bulging disc with a small broad-based left paracentral disc protrusion along with facet and ligamentum flavum hypertrophy with moderate to severe bilateral lateral recess and foraminal narrowing overall not significant change. There is borderline canal stenosis at this level not significant changed 3. No disc herniation
== END ==
PROVIDERS: PCP Family Medicine; Visit Provider Clinical Nurse Specialist Family Health
DX: M54.5 Low back pain (principal)
CPT/HCPCS: 72148; 76376

== ENCOUNTER → 2018-08-01 09:15 | Outpatient (POV) | payer MEDICARE, MEDICAID, SELFPAY ==
[2018-08-01 09:59] VITALS: BP 136/89; PULSE 92; RESP 18; O2SAT 98; BMI 50.2
--- NOTE | 2018-08-01 10:07 | HMH.PAINSOAP ---
[facility] Pain Management SOAP Note Subjective:: Patient is a pleasant 52-year-old white female who presents today for follow-up after MRI. The patient is continuing to have low back pain nonradiating. She has had multiple injections in the past. The is currently on gabapentin 600 mg 1 tablet p.o. 3 times daily and tramadol 50 mg 1 tablet p.o. 3 times daily. [facility] #[id number] has been reviewed and is appropriate. Patient says she has had significant weight gain with gabapentin and says that this has caused her more distress. The side effects of medications were thoroughly discussed. The patient does not want to stop her gabapentin at this time. SHe does say I have creepy crawly's in my legs . She says that the gabapentin helps with this feeling. It is unable to perform a home stretching program because it is too painful. She does say that she takes ibuprofen at least 4 pills at night to relieve pain. ROS General: no recent weight change, no fever, no sleep disturbances Respiratory: no cough, no shortness of air, no recurring pulmonary infections Cardiovascular/Peripheral Vascular: No chest pain, No palpitations, no edema, no shortness of breath. Gastrointestinal: no incontinence, normal bowel movements reported Genitourinary: no incontinence Musculoskeletal: Back pain Psychiatric: normal mood/ affect, [denies depression], [denies anxiety] Neurological: [denies weakness in extremities], [denies balance issues] Objective:: Physical Exam General: Alert and oriented x3, no acute distress, pleasant and cooperative, [on room air] Lungs: Resps E/U, Symmetrical chest expansion, Eyes: PERRL Musculoskeletal: Flexion and extension of lumbar spine somewhat guarded secondary to pain, deep tendon reflexes normal, strength in upper and lower extremities [5/5], [abnormal gait noted] Neurological: speech clear, paint line production supervisor equal, no gross sensory deficits Assessment:: Degenerative disc disease lumbar spine with lumbar radiculopathy Plan:: We will get the patient scheduled to see the [employer] spinal stimulator loss prevention representative. She is not interested in any injections at this time. I did offer the patient a consultation with a surgeon, for which she is uninterested in this at this time, as well. The patient does want to continue with her gabapentin. We discussed a walking regimen, along with a weight loss program. Patient is not interested in either at this time. She is agreeable to meeting with the stimulator loss prevention representative. We will follow-up with her in 1 month to see if she has had any relief after reprogramming. She is been instructed to call the office if she has any concerns prior to her next appointment. Dr. Canchola has reviewed this note and agrees with this plan of care. This note was dictated using voice recognition software and may contain errors or omissions
--- NOTE | 2018-08-01 10:10 | P.CONS_ITS ---
[place] Pain Management SOAP Note Subjective:: Patient is a pleasant 52-year-old white female who presents today for follow-up after MRI. The patient is continuing to have low back pain nonradiating. She has had multiple injections in the past. The is currently on gabapentin 600 mg 1 tablet p.o. 3 times daily and tramadol 50 mg 1 tablet p.o. 3 times daily. [facility] #[id number] has been reviewed and is appropriate. Patient says she has had significant weight gain with gabapentin and says that this has caused her more distress. The side effects of medications were thoroughly discussed. The patient does not want to stop her gabapentin at this time. SHe does say I have creepy crawly's in my legs . She says that the gabapentin helps with this feeling. It is unable to perform a home stretching program because it is too painful. She does say that she takes ibuprofen at least 4 pills at night to relieve pain. ROS General: no recent weight change, no fever, no sleep disturbances Respiratory: no cough, no shortness of air, no recurring pulmonary infections Cardiovascular/Peripheral Vascular: No chest pain, No palpitations, no edema, no shortness of breath. Gastrointestinal: no incontinence, normal bowel movements reported Genitourinary: no incontinence Musculoskeletal: Back pain Psychiatric: normal mood/ affect, [denies depression], [denies anxiety] Neurological: [denies weakness in extremities], [denies balance issues] Objective:: Physical Exam General: Alert and oriented x3, no acute distress, pleasant and cooperative, [on room air] Lungs: Resps E/U, Symmetrical chest expansion, Eyes: PERRL Musculoskeletal: Flexion and extension of lumbar spine somewhat guarded secondary to pain, deep tendon reflexes normal, strength in upper and lower extremities [5/5], [abnormal gait noted] Neurological: speech clear, rotary filter operator equal, no gross sensory deficits Assessment:: Degenerative disc disease lumbar spine with lumbar radiculopathy Plan:: We will get the patient scheduled to see the [employer] spinal stimulator assisted sales representative. She is not interested in any injections at this time. I did offer the patient a consultation with a surgeon, for which she is uninterested in this at this time, as well. The patient does want to continue with her gabapentin. We discussed a walking regimen, along with a weight loss program. Patient is not interested in either at this time. She is agreeable to meeting with the stimulator assisted sales representative. We will follow-up with her in 1 month to see if she has had any relief after reprogramming. She is been instructed to call the office if she has any concerns prior to her next appointment. Dr. Canchola has reviewed this note and agrees with this plan of care. This note was dictated using voice recognition software and may contain errors or omissions
== END ==
PROVIDERS: PCP Family Medicine; Visit Provider Clinical Nurse Specialist Family Health
DX: M51.16 Intervertebral disc disorders with radiculopathy, lumbar region (principal)
CPT/HCPCS: 99212

== ENCOUNTER → 2018-08-28 10:05 | Outpatient (POV) | payer MEDICARE, MEDICAID, SELFPAY ==
[2018-08-28 10:24] VITALS: BP 132/70; PULSE 78; RESP 18; O2SAT 98; BMI 48.8
--- NOTE | 2018-08-28 10:27 | HMH.PAINSOAP ---
[facility] Pain Management SOAP Note Subjective:: Patient is a pleasant 52-year-old white female who presents today for follow-up. Patient is being treated for low back pain with lumbar radiculopathy symptoms. At the last visit patient was supposed to meet with [employer] manufacturer's service representative , but has not met with him as of today. She says she is scheduled to see him on Tuesday. Patient says that her charging system for her stimulator was not working over the weekend and she had severe pain. She says she now realizes how much the stimulator helps her with her pain. She is continuing to have pain to bilateral hips and says it is worse with walking. Patient's [facility] #[id number] has been reviewed and is appropriate. Patient is currently taking tramadol 50 mg 1 p.o. 3 times daily and gabapentin 600 mg 1 p.o. 3 times daily. She is continuing with anti-inflammatories. She also says that she was doing home stretching program, but does not feel like it is helping much. She is interested in discussing injective therapy options today. Review of Systems General: No recent weight changes, no fever, no sleep disturbances Respiratory: No cough, no shortness of air, no recurring pulmonary infections Cardiovascular/peripheral vascular: No chest pain, no palpitations, no edema, no shortness of breath Gastrointestinal: No new onset incontinence, normal bowel movements reported Genitourinary: No new onset incontinence Musculoskeletal: Back pain, leg pain Psychiatric: Normal mood/affect Neurological: [Denies weakness in extremities], [denies balance issues] Objective:: Physical exam General: Alert and oriented x3, no acute distress, pleasant and cooperative, [on room air] Lungs: Respirations even and unlabored, symmetrical chest expansion Eyes: PERRL Musculoskeletal: Flexion and extension of lumbar spine somewhat guarded secondary to pain, deep tendon reflexes normal, strength in upper and lower extremities [5/5], [abnormal gait noted] Neurological: Speech clear, survey director equal, no gross sensory deficit Assessment:: Degenerative disc disease lumbar spine with lumbar radiculopathy, bilateral greater trochanteric bursitis Plan:: Patient is scheduled to see [employer] spinal stimulator manufacturer's service representative on Tuesday. She is also interested in injective therapy. We will schedule her for bilateral bursa injections. The patient is not on any anticoagulation therapy. She will continue her home stretching program and anti-inflammatories. We will refill her tramadol 50 mg 1 p.o. 3 times daily. We will see the patient for her procedure and will up with her in the office after that procedure to reassess her symptoms at that time. She is been instructed to call the office if she has any concerns prior to her next appointment. Dr. Canchola has reviewed this note and agrees with this plan of care. This note was dictated using voice recognition software and make contain errors or omissions.
--- NOTE | 2018-08-28 10:31 | P.CONS_ITS ---
[facility] Pain Management SOAP Note Subjective:: Patient is a pleasant 52-year-old white female who presents today for follow-up. Patient is being treated for low back pain with lumbar radiculopathy symptoms. At the last visit patient was supposed to meet with [employer] sales representatives , but has not met with him as of today. She says she is scheduled to see him on Tuesday. Patient says that her charging system for her stimulator was not working over the weekend and she had severe pain. She says she now realizes how much the stimulator helps her with her pain. She is continuing to have pain to bilateral hips and says it is worse with walking. Patient's [facility] #[id number] has been reviewed and is appropriate. Patient is currently taking tramadol 50 mg 1 p.o. 3 times daily and gabapentin 600 mg 1 p.o. 3 times daily. She is continuing with anti-inflammatories. She also says that she was doing home stretching program, but does not feel like it is helping much. She is interested in discussing injective therapy options today. Review of Systems General: No recent weight changes, no fever, no sleep disturbances Respiratory: No cough, no shortness of air, no recurring pulmonary infections Cardiovascular/peripheral vascular: No chest pain, no palpitations, no edema, no shortness of breath Gastrointestinal: No new onset incontinence, normal bowel movements reported Genitourinary: No new onset incontinence Musculoskeletal: Back pain, leg pain Psychiatric: Normal mood/affect Neurological: [Denies weakness in extremities], [denies balance issues] Objective:: Physical exam General: Alert and oriented x3, no acute distress, pleasant and cooperative, [on room air] Lungs: Respirations even and unlabored, symmetrical chest expansion Eyes: PERRL Musculoskeletal: Flexion and extension of lumbar spine somewhat guarded secondary to pain, deep tendon reflexes normal, strength in upper and lower extremities [5/5], [abnormal gait noted] Neurological: Speech clear, offset press operator equal, no gross sensory deficit Assessment:: Degenerative disc disease lumbar spine with lumbar radiculopathy, bilateral greater trochanteric bursitis Plan:: Patient is scheduled to see [id number] spinal stimulator sales representatives on Tuesday. She is also interested in injective therapy. We will schedule her for bilateral bursa injections. The patient is not on any anticoagulation therapy. She will continue her home stretching program and anti-inflammatories. We will refill her tramadol 50 mg 1 p.o. 3 times daily. We will see the patient for her procedure and will up with her in the office after that procedure to reassess her symptoms at that time. She is been instructed to call the office if she has any concerns prior to her next appointment. Dr. Canchola has reviewed this note and agrees with this plan of care. This note was dictated us ing voice recognition software and make contain errors or omissions.
== END ==
PROVIDERS: PCP Family Medicine; Visit Provider Clinical Nurse Specialist Family Health
DX: M51.16 Intervertebral disc disorders with radiculopathy, lumbar region (principal); M70.61 Trochanteric bursitis, right hip; M70.62 Trochanteric bursitis, left hip
CPT/HCPCS: 99212

== ENCOUNTER → 2018-10-03 09:38 | Outpatient (POV) | payer MEDICARE, MEDICAID, SELFPAY ==
--- NOTE | 2018-10-03 10:10 | P.CONS_ITS ---
[facility] Pain Management SOAP Note Subjective:: Patient is a pleasant 53-year-old white female who presents today for follow-up after bilateral bursa injections. She is doing well she rates her pain 8 out of 10 today however until 2 days ago she had 90% relief of her hip pain. She is also got a [employer] stimulator which she states is working well for her at this time. ROS General: no recent weight change, no fever, no sleep disturbances Respiratory: no cough, no shortness of air, no recurring pulmonary infections Cardiovascular/Peripheral Vascular: No chest pain, No palpitations, no edema, no shortness of breath. Gastrointestinal: no incontinence, normal bowel movements reported Genitourinary: no incontinence Musculoskeletal: Bilateral hip pain Psychiatric: normal mood/ affect Neurological: [denies weakness in extremities], [denies balance issues] Objective:: Physical Exam General: Alert and oriented x3, no acute distress, pleasant and cooperative, [on room air] Lungs: Resps E/U, Symmetrical chest expansion, Eyes: PERRL Musculoskeletal: Flexion and extension of lumbar spine somewhat guarded secondary to pain, deep tendon reflexes normal, strength in upper and lower extremities [5/5], [abnormal gait noted] extreme point tenderness over bilateral greater trochanteric bursa Neurological: speech clear, citrus peeler equal, no gross sensory deficits Assessment:: Bursitis Plan:: We will schedule the patient for greater trochanteric bursa injections bilaterally. Overall patient is done well With this in the past. Dr. Canchola has reviewed this note and agrees with this plan of care. This note was dictated using voice recognition software and may contain errors or omissions Pain Management Hx Components *Have you ever received a pneumonia vaccine?: No *Have you received a flu vaccine this season?: No - *Social History *Occupational Status:: other *Travel in the last 8 weeks: None
[2018-10-03 10:20] VITALS: BP 116/67; PULSE 79; RESP 18; O2SAT 98; BMI 50.2
== END ==
PROVIDERS: PCP Family Medicine; Visit Provider Clinical Nurse Specialist Family Health
DX: M70.61 Trochanteric bursitis, right hip; M70.62 Trochanteric bursitis, left hip
CPT/HCPCS: 99212

== ENCOUNTER → 2018-11-06 09:44 | Outpatient (POV) | payer MEDICARE, MEDICAID, SELFPAY ==
[2018-11-06 10:22] VITALS: BP 120/72; PULSE 84; RESP 18; O2SAT 98; BMI 48.8
--- NOTE | 2018-11-06 10:40 | HMH.PAINSOAP ---
[facility] Pain Management SOAP Note Subjective:: Patient is a 53-year-old white female who presents today for follow-up after bilateral bursa injection. Patient's right hip is pain-free however it is a 10 out of 10 on the left hip. She gets good relief with her injections up to 90% for several weeks. Patient would like to repeat this at the 6-week kori. Patient's been seen by Ortho and sent to physical therapy patient completed 2 weeks of this and stated it was not helping. Patient is wondering if her gabapentin could be causing her weight gain. Patient states she has been actively trying to lose weight however she has gained more weight. We discussed switching medication ROS General: no recent weight change, no fever, no sleep disturbances Respiratory: no cough, no shortness of air, no recurring pulmonary infections Cardiovascular/Peripheral Vascular: No chest pain, No palpitations, no edema, no shortness of breath. Gastrointestinal: no incontinence, normal bowel movements reported Genitourinary: no incontinence Musculoskeletal: Bilateral hip pain Psychiatric: normal mood/ affect, Neurological: [denies weakness in extremities], [denies balance issues] Objective:: Physical Exam General: Alert and oriented x3, no acute distress, pleasant and cooperative, [on room air] morbidly obese Lungs: Resps E/U, Symmetrical chest expansion, Eyes: PERRL Musculoskeletal: Flexion and extension of Lumbar spine somewhat guarded secondary to pain, deep tendon reflexes normal, strength in upper and lower extremities [5/5], [abnormal gait noted] extreme tenderness over bilateral bursa Neurological: speech clear, drapery maker equal, no gross sensory deficits Assessment:: Bursitis Plan:: We will schedule her bilateral bursa injections 6 to 8 weeks from her previous injections. We will take her off gabapentin and switch her to Lyrica 75 mg 1 p.o. twice daily. I will follow-up with her after her injection reassess her symptoms at that time she is been instructed to call the office if she has any issues prior to her next appointment. Dr. Canchola has reviewed this note and agrees with this plan of care. This note was dictated using voice recognition software and may contain errors or omissions [facility] History I have reviewed the patient's past medical history: Yes Medical History: Reports:: Anxiety, Depression, Gastroesophageal Reflux Disease(GERD), Hypertension Denies:: Cancer, Diabetes Mellitus Type 1, Diabetes Mellitus Type 2, Hyperlipidemia, Internal Pacemaker, Lung Disease, MRSA, Seizures *Have you ever received a pneumonia vaccine?: Yes *Have you received a flu vaccine this season?: Yes Other Medical History: Reports: Arthritis, Glaucoma, Hypothyroidism, Thyroid Disease Laterality Cases: Right: Arthroscopy Knee, Bilateral: Other Other Surgeries: Yes: Cholecystectomy, Colonoscopy, EGD, Hysterectomy-Total, Other (stimulator implant). No: Pacemaker Amputation: No Fractures: Yes (LEFT WRIST) - *Social History Smoking Status: Never smoker Alcohol Intake: never Substance Use Type: denies use *Occupational Status:: other Housing: house Household Members: spouse, other *Travel in the last 8 weeks: None - Psychiatric History Pschychiatric History:: Reports:: Anxiety, Depression Family Hx:: Cancer, Coronary Artery Disease, Diabetes, Hyperlipidemia, Hypertension, Thyroid Disorder
--- NOTE | 2018-11-06 10:44 | P.CONS_ITS ---
[facility] Pain Management SOAP Note Subjective:: Patient is a 53-year-old white female who presents today for follow-up after bilateral bursa injection. Patient's right hip is pain-free however it is a 10 out of 10 on the left hip. She gets good relief with her injections up to 90% for several weeks. Patient would like to repeat this at the 6-week kori. Patient's been seen by Ortho and sent to physical therapy patient completed 2 weeks of this and stated it was not helping. Patient is wondering if her gabapentin could be causing her weight gain. Patient states she has been actively trying to lose weight however she has gained more weight. We discussed switching medication ROS General: no recent weight change, no fever, no sleep disturbances Respiratory: no cough, no shortness of air, no recurring pulmonary infections Cardiovascular/Peripheral Vascular: No chest pain, No palpitations, no edema, no shortness of breath. Gastrointestinal: no incontinence, normal bowel movements reported Genitourinary: no incontinence Musculoskeletal: Bilateral hip pain Psychiatric: normal mood/ affect, Neurological: [denies weakness in extremities], [denies balance issues] Objective:: Physical Exam General: Alert and oriented x3, no acute distress, pleasant and cooperative, [on room air] morbidly obese Lungs: Resps E/U, Symmetrical chest expansion, Eyes: PERRL Musculoskeletal: Flexion and extension of Lumbar spine somewhat guarded secondary to pain, deep tendon reflexes normal, strength in upper and lower extremities [5/5], [abnormal gait noted] extreme tenderness over bilateral bursa Neurological: speech clear, optical coating technician equal, no gross sensory deficits Assessment:: Bursitis Plan:: We will schedule her bilateral bursa injections 6 to 8 weeks from her previous injections. We will take her off gabapentin and switch her to Lyrica 75 mg 1 p.o. twice daily. I will follow-up with her after her injection reassess her symptoms at that time she is been instructed to call the office if she has any issues prior to her next appointment. Dr. Canchola has reviewed this note and agrees with this plan of care. This note was dictated using voice recognition software and may contain errors or omissions [facility] History I have reviewed the patient's past medical history: Yes Medical History: Reports:: Anxiety, Depression, Gastroesophageal Reflux Disease(GERD), Hypertension Denies:: Cancer, Diabetes Mellitus Type 1, Diabetes Mellitus Type 2, Hyperlipidemia, Internal Pacemaker, Lung Disease, MRSA, Seizures *Have you ever received a pneumonia vaccine?: Yes *Have you received a flu vaccine this season?: Yes Other Medical History: Reports: Arthritis, Glaucoma, Hypothyroidism, Thyroid Disease Laterality Cases: Right: Arthroscopy Knee, Bilateral: Other Other Surgeries: Yes: Cholecystectomy, Colonoscopy, EGD, Hysterectomy-Total, Other (stimulator implant). No: Pacemaker Amputation: No Fractures: Yes (LEFT WRIST) - *Social History Smoking Status: Never smoker Alcohol Intake: never Substance Use Type: denies use *Occupational Status:: other Housing: house Household Members: spouse, other *Travel in the last 8 weeks: None - Psychiatric History Pschychiatric History:: Reports:: Anxiety, Depression Family Hx:: Cancer, Coronary Artery Disease, Diabetes, Hyperlipidemia, Hypertension, Thyroid Disorder
== END ==
PROVIDERS: PCP Family Medicine; Visit Provider Clinical Nurse Specialist Family Health
DX: M71.9 Bursopathy, unspecified (principal)
CPT/HCPCS: 99212

== ENCOUNTER → 2018-11-27 11:53 | Outpatient (CLI) | payer MEDICARE, MEDICAID, SELFPAY ==
--- NOTE | 2018-11-27 12:00 | XR_ITS ---
PROCEDURE: XR SHOULDER RT MIN 2V CLINICAL INDICATION: INJURY OF RIGHT SHOULDER, INITIAL ENCOUNTER COMPARISON: [id number] from 01/09/2016 FINDINGS: There are osteoarthritic changes of the acromioclavicular joint with mild subacromial stenosis. No fracture or dislocation. No lytic or blastic change. IMPRESSION: Acromioclavicular arthropathy with subacromial stenosis Dictated by: Tony Fox MD 11/27/2018 13:05 Electronically signed by Tony Fox MD in [place] 11/27/2018 13:05
== END ==
PROVIDERS: PCP Family Medicine; Visit Provider Family Medicine
DX: M25.511 Pain in right shoulder (principal)
CPT/HCPCS: 73030

== ENCOUNTER → 2018-12-28 07:51 | Outpatient (CLI) | payer MEDICARE, MEDICAID, SELFPAY ==
--- NOTE | 2018-12-28 08:06 | MR_ITS ---
PROCEDURE: MR SHOULDER RT WO CON CLINICAL INDICATION: DHO/RIGHT SHOULDER PAIN Right shoulder pain COMPARISON: XR SHOULDER RT MIN 2V from 11/27/2018 TECHNIQUE: Routine multiplanar multi echo sequences are performed without gadolinium enhancement. FINDINGS: There is mild acromioclavicular arthropathy with mild subacromial stenosis. There is some impingement upon the supraspinatus musculotendinous junction. No obvious rotator cuff tear. No labral tear apparent. The bicipital tendon is in place. No fracture or dislocation. IMPRESSION: Acromioclavicular hypertrophy with some mild impingement upon the musculotendinous junction of the supraspinatus. No evidence of rotator cuff tear or other significant anomaly. Dictated by: Tony Fox MD 12/29/2018 13:14 Electronically signed by Tony Fox MD in [place] 12/29/2018 13:14
== END ==
PROVIDERS: PCP Family Medicine; Visit Provider Nurse Practitioner Family
DX: S49.91XA Unspecified injury of right shoulder and upper arm, initial encounter (principal); M25.511 Pain in right shoulder
CPT/HCPCS: 73221

== ENCOUNTER → 2019-02-27 10:55 | Outpatient (POV) | payer MEDICARE, MEDICAID, SELFPAY ==
--- NOTE | 2019-02-27 11:24 | P.CONS_ITS ---
[facility] Pain Management SOAP Note Subjective:: Patient is a pleasant 53-year-old white female who presents today for follow-up after trochanteric bursa injections. Patient got relief however today she rates her pain a 10 out of 10 and she is been going to physical therapy she states that it is not been helping. Patient has not seen in Ortho lately for her hips. At this time I am concerned about continuing injections with no end game as far as relief. We will send her back to Dr. Tyler for consultation in regards to her bilateral hip pain ROS General: no recent weight change, no fever, no sleep disturbances Respiratory: no cough, no shortness of air, no recurring pulmonary infections Cardiovascular/Peripheral Vascular: No chest pain, No palpitations, no edema, no shortness of breath. Gastrointestinal: no new onset incontinence, normal bowel movements reported Genitourinary: no new onset incontinence Musculoskeletal: Back pain, bilateral hip pain Psychiatric: normal mood/ affect Neurological: [denies new onset weakness in extremities], [denies new onset balance issues] Objective:: Physical Exam General: Alert and oriented x3, no acute distress, pleasant and cooperative, [on room air] Lungs: Resps E/U, Symmetrical chest expansion, Eyes: PERRL Musculoskeletal: Flexion and extension of lumbar spine somewhat guarded secondary to pain, deep tendon reflexes normal, strength in upper and lower extremities [5/5], [abnormal gait noted] extreme point tenderness over bilateral greater trochanteric bursa Neurological: speech clear, teller equal, no gross sensory deficits Assessment:: Chronic bursitis, hip pain Plan:: I will set her up for a another bilateral greater trochanteric bursa injection for the patient. I will then also send her to Dr. Tyler for consultation. Patient is been instructed to call the office if she has any issues prior to her next appointment. Dr. Canchola has reviewed this note and agrees with this plan of care. This note was dictated using voice recognition software and may contain errors or omissions [facility] History I have reviewed the patient's past medical history: Yes Medical History: Reports:: Anxiety, Depression, Gastroesophageal Reflux Disease(GERD), Hypertension Denies:: Cancer, Diabetes Mellitus Type 1, Diabetes Mellitus Type 2, Hyperlipidemia, Internal Pacemaker, Lung Disease, MRSA, Seizures *Have you ever received a pneumonia vaccine?: No *Have you received a flu vaccine this season?: No Other Medical History: Reports: Arthritis, Glaucoma, Hypothyroidism, Thyroid Disease Laterality Cases: Right: Arthroscopy Knee, Bilateral: Other Other Surgeries: Yes: Cholecystectomy, Colonoscopy, EGD, Hysterectomy-Total, Other (stimulator implant). No: Pacemaker Amputation: No Fractures: Yes (LEFT WRIST) - *Social History Smoking Status: Never smoker Alcohol Intake: never Substance Use Type: denies use *Occupational Status:: other Housing: house Household Members: spouse, other *Travel in the last 8 weeks: None - Psychiatric History Pschychiatric History:: Reports:: Anxiety, Depression Family Hx:: Cancer, Coronary Artery Disease, Diabetes, Hyperlipidemia, Hypertension, Thyroid Disorder
[2019-02-27 12:12] VITALS: BP 100/54; PULSE 80; RESP 18; O2SAT 98; BMI 50.9
== END ==
PROVIDERS: PCP Family Medicine; Visit Provider Clinical Nurse Specialist Family Health
DX: M70.62 Trochanteric bursitis, left hip (principal); M70.61 Trochanteric bursitis, right hip; F32.9 Major depressive disorder, single episode, unspecified; F41.9 Anxiety disorder, unspecified; I10 Essential (primary) hypertension; K21.9 Gastro-esophageal reflux disease without esophagitis; E03.9 Hypothyroidism, unspecified; Z90.710 Acquired absence of both cervix and uterus; Z90.49 Acquired absence of other specified parts of digestive tract; Z83.3 Family history of diabetes mellitus; Z82.49 Family history of ischemic heart disease and other diseases of the circulatory system; Z84.89 Family history of other specified conditions; Z80.9 Family history of malignant neoplasm, unspecified
CPT/HCPCS: 99212

== ENCOUNTER 2019-03-08 14:00 | Outpatient (RCR) | payer MEDICARE, MEDICAID, SELFPAY ==
--- NOTE | 2019-02-20 09:49 | HMH.OTOPEV ---
OT Inpatient Evaluation Rehab OT Outpatient Eval Start: 02/20/19 09:39 Freq: Status: Active Protocol: Document 02/20/19 09:39 RMTATI (Rec: 02/20/19 09:48 [email or web address] [id number]) Electronically Signed By Sonali Thompson OT 02/20/19 09:39 Outpatient Therapy Subjective History Subjective History Pt is a 53 year old male who reports to therapy for initial evaluation to right shoulder. Pt reports she was in bed trying to sleep when she moved her arm around and felt a pop in her shoulder. Pt explains once her arm popped she had immediate pain that has only continued; this happened in October 2018. Pt has been seen by ortho and was diagnosed with subacromial impingement after x-ray and MRI. Pt was given one injection. Pt reports the injection helped initially, but she is continuing to have pain. Pt does demonstrate with decreased AROM and strength at right shoulder. Pt will continue to be seen twice a week in order to address all deficits. Chief Complaint Pain,Stiff,Weakness Symptom Type Ache,Throb,Sharp,Stabbing, Burning,Numbness,Tingling, Shooting Symptoms Relieved By Rest/Positioning Symptoms Aggravated By Physical Activity,Twisting, Lifting Prior Functional Limitations None Current Functional Limitations Reaching,Lifting,Housework, Dressing,Desk Work/Reading, Driving,Recreation Activity Symptom Description Constant but Variable Level of pain today (0-10) 5 Pain scale - at its best (0-10) 2 Pain scale - at its worst (0-10) 8 Shoulder/Elbow Eval Shoulder Objective Measurements Shoulder ROM Right Shoulder Abduction Active Range of 110 degrees Motion (degrees) Shoulder Flexion Active Range of Motion 118 degrees (degrees) Query Text: Shoulder External Rotation Active Range 75 degrees of Motion (degrees) Shoulder Internal Rotation Active Range 52 degrees of Motion (degrees) pain with active ROM shoulder exam right
== END 2019-03-08 14:05 | disposition home or self-care (01) ==
LOC: OT 14:00
PROVIDERS: PCP Family Medicine; Visit Provider Orthopaedic Surgery
DX: M19.011 Primary osteoarthritis, right shoulder (principal); M75.41 Impingement syndrome of right shoulder
CPT/HCPCS: 97014; 97110; 97166; G0283

== ENCOUNTER → 2019-04-12 10:24 | Outpatient (POV) | payer MEDICARE, MEDICAID, SELFPAY ==
[2019-04-12 10:45] VITALS: BP 142/69; PULSE 79; RESP 18; O2SAT 99; BMI 50.8
--- NOTE | 2019-04-12 11:09 | P.CONS_ITS ---
[facility] Pain Management SOAP Note Subjective:: Patient is a 53-year-old white female who presents today for follow-up. She is being treated for low back pain and for hip pain. Patient says she has had trochanteric bursa injections in the past and has gotten relief, however, with her previous injection she says she is not getting relief. Rates her pain a 2 out of 10 today. She was scheduled to see an orthopedic surgeon, however, she says she recently had flu and was unable to go to her appointment. She has to reschedule the appointment. She also found out that her grandfather while sitting in the clinic today. Patient says that she is not interested in injections at this time. She would like to, however, schedule physical therapy. Review of Systems General: No recent weight changes, no fever, no sleep disturbances Respiratory: No cough, no shortness of air, no recurring pulmonary infections Cardiovascular/peripheral vascular: No chest pain, no palpitations, no edema, no shortness of breath Gastrointestinal: No new onset incontinence, normal bowel movements reported Genitourinary: No new onset incontinence Musculoskeletal: Bilateral hip pain, low back pain Psychiatric: Normal mood/affect Neurological: [Denies weakness in extremities], [denies balance issues] Objective:: Physical exam General: Alert and oriented x3, no acute distress, pleasant and cooperative, [on room air] Lungs: Respirations even and unlabored, symmetrical chest expansion Eyes: PERRL Musculoskeletal: Flexion and extension of lumbar spine somewhat guarded secondary to pain, deep tendon reflexes normal, strength in upper and lower extremities [5/5], [abnormal gait noted] Neurological: Speech clear, supervisor laboratory animal facility equal, no gross sensory deficit Assessment:: Greater trochanteric bursitis Plan:: The patient is not interested in further injections at this time. We will schedule her for physical therapy while waiting to reschedule her appointment with the orthopedic surgeon again. Patient says that she plans to seek treatment for her shoulders before her bilateral hips. Patient would like to follow-up with us in 1 month. We will see her back in the clinic in a month to reassess her symptoms. Patient has been instructed to contact clinic if she has any concerns before next appointment. Dr. Canchola has reviewed this note and agrees with this plan of care. This note was dictated using voice recognition software and make contain errors or omissions. [facility] History I have reviewed the patient's past medical history: Yes Medical History: Reports:: Anxiety, Depression, Gastroesophageal Reflux Disease(GERD), Hypertension Denies:: Cancer, Diabetes Mellitus Type 1, Diabetes Mellitus Type 2, Hyperlipidemia, Internal Pacemaker, Lung Disease, MRSA, Seizures *Have you ever received a pneumonia vaccine?: Yes *Have you received a flu vaccine this season?: Yes Other Medical History: Reports: Arthritis, Glaucoma, Hypothyroidism, Thyroid Disease Laterality Cases: Right: Arthroscopy Knee, Bilateral: Other Other Surgeries: Yes: Cholecystectomy, Colonoscopy, EGD, Hysterectomy-Total, Other (stimulator implant). No: Pacemaker Amputation: No Fractures: Yes (LEFT WRIST) - *Social History Smoking Status: Never smoker Alcohol Intake: never Substance Use Type: denies use *Occupational Status:: other Housing: house Household Members: spouse, other *Travel in the last 8 weeks: None - Psychiatric History Pschychiatric History:: Reports:: Anxiety, Depression Family Hx:: Cancer, Coronary Artery Disease, Diabetes, Hyperlipidemia, Hypertensio
== END ==
PROVIDERS: PCP Family Medicine; Visit Provider Clinical Nurse Specialist Family Health
DX: M70.60 Trochanteric bursitis, unspecified hip
CPT/HCPCS: 99212

== ENCOUNTER → 2019-06-19 08:30 | Outpatient (POV) | payer MEDICARE, SELFPAY ==
--- NOTE | 2019-06-19 15:08 | HMH.VVPMSO ---
[facility] Virtual Visit SOAP Consent for virtual visit:: With the recent concerns about the COVID-19, we are trying to minimize exposure to you by shifting to telehealth appointments whenever possible. It restricts me from seeing you in person, but the trade off is protecting you during this pandemic. Can you see and hear me okay, and do you consent to this option? If not, I would be happy to see if we can reschedule your appointment in the future, when feasible. Has patient consented to this virtual visit?: Yes Subjective:: Patient is a pleasant 53-year-old white female who presents today for follow-up. Patient states that she is having increased pain in her bilateral hips. She is done well with bursa injections in the past however they are not lasting as long as typical. Patient and I discussed intra-articular injection she would like to move forward with this. She also like to discuss going back on gabapentin 600 mg 1 p.o. 3 times daily. We will move forward with this. She does have VULCUN stimulator. We will ensure that she gets seen by a pharmacy sales representative for reprogramming ROS General: no recent weight change, no fever, no sleep disturbances Respiratory: no cough, no shortness of air, no recurring pulmonary infections Cardiovascular/Peripheral Vascular: No chest pain, No palpitations, no edema, no shortness of breath. Gastrointestinal: no new onset incontinence, normal bowel movements reported Genitourinary: no new onset incontinence Musculoskeletal: Bilateral hip pain Psychiatric: normal mood/ affect Neurological: [denies new onset weakness in extremities], [denies new onset balance issues] Objective:: Physical exam: Constitutional: Healthy appearing, well-developed, alert, in no acute distress Psychiatric: Judgment and insight intact, Alert and oriented x4 Mood and affect: Mood normal, affect appropriate Head and face: Inspection: Normocephalic atraumatic, extraocular movement intact Respiratory: Breathing nonlabored, nondyspneic Cardiovascular: No cyanosis, clubbing, or edema observed Skin: Head and neck: Skin with no lesions or rash observed Gait: Able to walk without assistive device: Able to heel and toe walk Neurologic: Sensation grossly intact per patient Musculoskeletal: Decreased range of motion bilateral hips noted on video Assessment:: Bilateral hip pain, hip osteoarthritis Plan:: We will move forward with bilateral intra-articular hip injections. We will continue her gabapentin 600 mg 1 p.o. 3 times daily. I will follow-up with her after this reassess her symptoms at that time. This encounter was performed as a telemedicine visit via secure 2 way video and audio to minimize risk and transmission of Covid-19. The patient and we understand the limitations of a telemedicine visit including inability to check reflexes, possibly missing subtle findings on physical exam. Alternative options were presented to the patient and the patient elected to proceed with the visit. We specifically discussed risk factors for Covid-19 including age, heart or lung disease, diabetes, immunosuppression and travel. We also discussed that NSAIDs may worsen Covid-19 infection symptoms and that they should not be used to treat Covid-19 symptoms. Patient was also informed that corticosteroids in any form oral or injectable will decrease immune response and may increase risk of Covid-[address] Canchola has reviewed this patient's chart and this note and agrees with plan of care. Patient has been instructed to call the office if they have any issues prior to the next appointment. Time In:: 08:30 Time Out:: 08:40 [facility] History I have reviewed the patient's past medical history: Yes Medical History: Reports:: Anxiety, Depression, Gastroesophageal Reflux Disease(GERD), Hypertension Denies:: Cancer, Diabetes Mellitus Type 1, Diabetes Mellitus Type 2, Hyperlipidemia, Internal Pacemaker, Lung Disease, MRSA, Seizur
== END ==
PROVIDERS: Visit Provider Clinical Nurse Specialist Family Health
DX: M16.0 Bilateral primary osteoarthritis of hip (principal)
CPT/HCPCS: 99212

== ENCOUNTER 2019-07-06 09:45 | Day surgery (SDC) | payer MEDICARE, SELFPAY ==
[2019-07-06 09:56] VITALS: BP 151/81; PULSE 82; RESP 18; TEMP 36.1; O2SAT 99; BMI 50.2
[2019-07-06 10:59] VITALS: BP 140/78; BP 142/85; PULSE 85; PULSE 88; RESP 18; O2SAT 99
--- NOTE | 2019-07-06 11:06 | HMH.PMPROC ---
- Procedure Date: 07/06/19 Time: 11:06 Anesthesiologist:: Nilson Canchola MD Complications:: None Pre-procedure Diagnosis:: Bilateral hip pain with degenerative osteoarthritis of both hips Post-procedure Diagnosis:: Same Indications for Procedure:: Patient is a pleasant 53-year-old white female who we are treating for bilateral hip pain. She has benefited previously from bursa injections. She does have degenerative osteoarthritis of both hips. We will do bilateral intra-articular hip injections today to see if this helps with her pain symptoms. She does have a [employer] stimulator. She is doing well with her stimulator. Procedure Details:: Bilateral intra-articular hip injections Informed consent was obtained the risk and benefits of the procedure were explained to the patient. Patient was taken to the procedure room. Both hips were prepped using ChloraPrep. A 22-gauge spinal needle was advanced into the hip joint. This was done bilaterally. Needle placement was confirmed with dye. We then injected 10 mL bupivacaine 0.25% Depo-Medrol 40 mg into each hip. We used a total of 80 mg Depo-Medrol for both hips. The patient tolerated the procedure well with no complications. Plan and Disposition:: We will follow-up with her in 2 weeks. Will reevaluate her symptoms at that time.
[2019-07-06 11:09] VITALS: BP 159/94; PULSE 72; RESP 20; O2SAT 99
== END 2019-07-06 11:10 | disposition home or self-care (01) ==
LOC: SC.PAINP 09:46
PROVIDERS: PCP Family Medicine; Visit Provider Anesthesiology
DX: M16.0 Bilateral primary osteoarthritis of hip (principal); I10 Essential (primary) hypertension; E66.9 Obesity, unspecified; Z68.43 Body mass index [BMI] 50.0-59.9, adult; J45.909 Unspecified asthma, uncomplicated; F41.9 Anxiety disorder, unspecified; F32.9 Major depressive disorder, single episode, unspecified; Z87.39 Personal history of other diseases of the musculoskeletal system and connective tissue
CPT/HCPCS: 20610; 77002; J1030; Q9966

== ENCOUNTER → 2019-07-23 09:57 | Outpatient (POV) | payer MEDICARE, SELFPAY ==
[2019-07-23 10:03] VITALS: BP 114/66; PULSE 70; RESP 18; TEMP 36.8; O2SAT 98; BMI 47.4
--- NOTE | 2019-07-23 10:17 | HMH.PAINSOAP ---
[facility] Pain Management SOAP Note Subjective:: 53-year-old white female who presents today for follow-up after bilateral hip injections. Patient has had multiple injections with no long-term relief. Is notably getting shorter and shorter. Patient and I had a long discussion in regards to continuing steroid injections. Given the short-term of relief and previous recommendations from Dr. Tyler we had a long conversation about weight loss and physical therapy. We will send her to physical therapy. ROS General: no recent weight change, no fever, no sleep disturbances Respiratory: no cough, no shortness of air, no recurring pulmonary infections Cardiovascular/Peripheral Vascular: No chest pain, No palpitations, no edema, no shortness of breath. Gastrointestinal: no new onset incontinence, normal bowel movements reported Genitourinary: no new onset incontinence Musculoskeletal: Bilateral hip pain Psychiatric: normal mood/ affect Neurological: [denies new onset weakness in extremities], [denies new onset balance issues] Objective:: Physical Exam General: Alert and oriented x3, no acute distress, pleasant and cooperative, [on room air] Lungs: Resps E/U, Symmetrical chest expansion, Eyes: PERRL Musculoskeletal: Flexion and extension of lumbar spine somewhat guarded secondary to pain, deep tendon reflexes normal, strength in upper and lower extremities [5/5], [abnormal gait noted] Neurological: speech clear, kosher dietary service manager equal, no gross sensory deficits Assessment:: Bilateral hip pain, hip osteoarthritis, bursitis Plan:: I was in the patient for physical therapy for bilateral hip pain. We had a long discussion in regards to weight loss and noninflammatory food choices. We will continue her tramadol and gabapentin. She states that it is very effective for her. Binta #[id number] reviewed and appropriate. We will give her 2 months worth of medication. Follow-up with her after this reassess her symptoms at that time. At this time if she does not complete physical therapy we have exhausted our options in regards to her bilateral hip pain. Dr. Canchola has reviewed this note and agrees with this plan of care. This note was dictated using voice recognition software and may contain errors or omissions Patient has been prescribed a controlled substance after being counseled on the medication, medication safety, and possible side effects. BINTA report has been obtained and reviewed prior to prescription and found to be appropriate. Opioid contract was reviewed and signed by the patient, and that they have agreed to all of the terms set forth by our compliance program. [facility] History I have reviewed the patient's past medical history: Yes Medical History: Reports:: Anxiety, Depression, Gastroesophageal Reflux Disease(GERD), Hypertension Denies:: Cancer, Diabetes Mellitus Type 1, Diabetes Mellitus Type 2, Hyperlipidemia, Internal Pacemaker, Lung Disease, MRSA, Seizures *Have you ever received a pneumonia vaccine?: Yes *Have you received a flu vaccine this season?: Yes Other Medical History: Reports: Arthritis, Glaucoma, Hypothyroidism, Thyroid Disease Laterality Cases: Right: Arthroscopy Knee, Bilateral: Other Other Surgeries: Yes: Cholecystectomy, Colonoscopy, EGD, Hysterectomy-Total, Other (stimulator implant). No: Pacemaker Amputation: No Fractures: Yes (LEFT WRIST) - *Social History Smoking Status: Never smoker Alcohol Intake: never Substance Use Type: denies use *Occupational Status:: other Housing: house Household Members: spouse, other *Travel in the last 8 weeks: None - Psychiatric History Pschychiatric History:: Reports:: Anxiety, Depression Family Hx:: Cancer, Coronary Artery Disease, Diabetes, Hyperlipidemia, Hypertension, Thyroid Disorder
== END ==
PROVIDERS: PCP Family Medicine; Visit Provider Clinical Nurse Specialist Family Health
DX: Z09 Encounter for follow-up examination after completed treatment for conditions other than malignant neoplasm (principal); M16.0 Bilateral primary osteoarthritis of hip; M71.9 Bursopathy, unspecified
CPT/HCPCS: 99212

== ENCOUNTER → 2019-07-31 09:33 | Outpatient (POV) | payer MEDICARE, SELFPAY ==
[2019-07-31 09:44] VITALS: BP 111/70; PULSE 76; RESP 18; TEMP 36.8; O2SAT 99; BMI 47.4
--- NOTE | 2019-07-31 10:16 | XR_ITS ---
PROCEDURE: XR LUMBAR SPINE MIN 4V CLINICAL INDICATION: BACK/FLANK PAIN COMPARISON: LS5 LUMBAR SPINE 5 VIEWS from 04/11/2015 FINDINGS: There is straightening of the normal curvature in the thoracolumbar region. The neurostimulator device is seen in the soft tissues of the lower back just beneath the surface of the skin with 2 electrodes leading to the lower thoracic spinal canal. All lumbar vertebrae appear intact. There is prominent disc space narrowing at the L4-5 level with a small vacuum phenomenon of the L4-5 disc and marginal osteophytic spurring. There is no pars defect. The SI joints appear normal. There was similar disc space narrowing and marginal osteophytic spurring at the L4-5 level on the previous lumbar spine but there has been a slight interval progression of disc space narrowing. There are moderate hypertrophic facet changes at the L4-5 and L5-S1 levels. IMPRESSION: Prominent degenerate disc disease L5-S1 along with hypertrophic facet changes lower lumbar spine Dictated by: Dr. Rogelio Hughes MD 07/31/2019 11:[address] Rogelio Hughes MD in [place] 07/31/2019 11:26
--- NOTE | 2019-07-31 10:22 | HMH.PAINSOAP ---
[facility] Pain Management SOAP Note Subjective:: Patient is a pleasant 53-year-old white female who presents today to discuss knots on her back . Patient has a neurostimulator where she is dates that there is knots all around them. She rates her pain today 6 out of 10. Patient currently in physical therapy for bilateral hip pain. We have discussed in great detail noninflammatory food choices and weight loss. She is on tramadol and gabapentin. On inspection of the neurostimulator there is a small hard round raised area that is movable in the middle of the incision. Patient and I discussed talking to Dr. Annalee wong in regards to this. I did not notice on exam and the other raised areas or knots or lumps. ROS General: no recent weight change, no fever, no sleep disturbances Respiratory: no cough, no shortness of air, no recurring pulmonary infections Cardiovascular/Peripheral Vascular: No chest pain, No palpitations, no edema, no shortness of breath. Gastrointestinal: no new onset incontinence, normal bowel movements reported Genitourinary: no new onset incontinence Musculoskeletal: Back pain, leg pain, hip pain Psychiatric: normal mood/ affect Neurological: [denies new onset weakness in extremities], [denies new onset balance issues] Objective:: Physical Exam General: Alert and oriented x3, no acute distress, pleasant and cooperative, [on room air] Lungs: Resps E/U, Symmetrical chest expansion, Eyes: PERRL Musculoskeletal: Flexion and extension of lumbar spine somewhat guarded secondary to pain, deep tendon reflexes normal, strength in upper and lower extremities [5/5], [abnormal gait noted] Neurological: speech clear, filterer equal, no gross sensory deficits Assessment:: Degenerative disc disease lumbar spine lumbar radiculopathy, CRPS, hip pain Plan:: We will set the patient up with Dr. Annalee wong to examine her incision site and will also get an x-ray of the area. I will follow-up with her after this reassess her symptoms at that time she has been instructed to call the office if she has any issues prior to her next appointment. Dr. Canchola has reviewed this note and agrees with this plan of care. This note was dictated using voice recognition software and may contain errors or omissions [facility] History I have reviewed the patient's past medical history: Yes Medical History: Reports:: Anxiety, Depression, Gastroesophageal Reflux Disease(GERD), Hypertension Denies:: Cancer, Diabetes Mellitus Type 1, Diabetes Mellitus Type 2, Hyperlipidemia, Internal Pacemaker, Lung Disease, MRSA, Seizures *Have you ever received a pneumonia vaccine?: Yes *Have you received a flu vaccine this season?: Yes Other Medical History: Reports: Arthritis, Glaucoma, Hypothyroidism, Thyroid Disease Laterality Cases: Right: Arthroscopy Knee, Bilateral: Other Other Surgeries: Yes: Cholecystectomy, Colonoscopy, EGD, Hysterectomy-Total, Other (stimulator implant). No: Pacemaker Amputation: No Fractures: Yes (LEFT WRIST) - *Social History Smoking Status: Never smoker Alcohol Intake: never Substance Use Type: denies use *Occupational Status:: other Housing: house Household Members: spouse, other *Travel in the last 8 weeks: None - Psychiatric History Pschychiatric History:: Reports:: Anxiety, Depression Family Hx:: Cancer, Coronary Artery Disease, Diabetes, Hyperlipidemia, Hypertension, Thyroid Disorder
== END ==
PROVIDERS: PCP Family Medicine; Visit Provider Clinical Nurse Specialist Family Health
DX: M51.16 Intervertebral disc disorders with radiculopathy, lumbar region (principal); M25.559 Pain in unspecified hip
CPT/HCPCS: 72110; 99212

== ENCOUNTER → 2019-08-01 11:32 | Outpatient (POV) | payer MEDICARE, SELFPAY | PROVIDERS: PCP Family Medicine; Visit Provider Anesthesiology | DX: Z53.20 Procedure and treatment not carried out because of patient's decision for unspecified reasons (principal) ==

== ENCOUNTER → 2019-08-10 09:27 | Outpatient (POV) | payer MEDICARE, SELFPAY ==
[2019-08-10 09:45] VITALS: BP 147/81; PULSE 75; RESP 20; TEMP 37; O2SAT 99; BMI 47.4
--- NOTE | 2019-08-10 10:02 | P.CONS_ITS ---
[facility] Pain Management SOAP Note Subjective:: This patient is a pleasant 53-year-old white female who we have been treating for low back pain with lumbar radicular symptoms. She does have a [employer] spinal cord stimulator. We will reprogram this today. Her stimulator does help but she is able to do more. However she still has some in creasing back pain especially at night. She has failed all other conservative therapy including injections physical therapy and oral medications. I have talked to her about a intrathecal pump trial. I do believe she would do well with an intrathecal pump trial. Objective:: Alert and oriented x3 no acute distress. She does have an antalgic gait. Motor strength of the lower extremities is 5/5. There is no gross sensory deficit. Assessment:: Degenerative disc disease of lumbar spine with lumbar radicular symptoms Plan:: We will follow-up with her and plan on intrathecal pump trial. This will be a single shot pump trial with fentanyl 25 mcg to help with low back pain and leg pain and bilateral foot pain. We will also have her [employer] stimulator reprogrammed today. [facility] History I have reviewed the patient's past medical history: Yes Medical History: Reports:: Anxiety, Depression, Gastroesophageal Reflux Disease(GERD), Hypertension Denies:: Cancer, Diabetes Mellitus Type 1, Diabetes Mellitus Type 2, Hyperlipidemia, Internal Pacemaker, Lung Disease, MRSA, Seizures *Have you ever received a pneumonia vaccine?: Yes *Have you received a flu vaccine this season?: Yes Other Medical History: Reports: Arthritis, Glaucoma, Hypothyroidism, Thyroid Disease Laterality Cases: Right: Arthroscopy Knee, Bilateral: Other Other Surgeries: Yes: Cholecystectomy, Colonoscopy, EGD, Hysterectomy-Total, Other (stimulator implant). No: Pacemaker Amputation: No Fractures: Yes (LEFT WRIST) - *Social History Smoking Status: Never smoker Alcohol Intake: never Substance Use Type: denies use *Occupational Status:: other Housing: house Household Members: spouse, other *Travel in the last 8 weeks: Inside the [place] - Psychiatric History Pschychiatric History:: Reports:: Anxiety, Depression Family Hx:: Cancer, Coronary Artery Disease, Diabetes, Hyperlipidemia, Hypertension, Thyroid Disorder
== END ==
PROVIDERS: PCP Family Medicine; Visit Provider Anesthesiology
DX: M51.16 Intervertebral disc disorders with radiculopathy, lumbar region (principal)
CPT/HCPCS: 99212

== ENCOUNTER 2019-08-23 08:00 | Outpatient (RCR) | payer MEDICARE, SELFPAY ==
--- NOTE | 2019-07-25 11:31 | HMH.PTOPEV ---
PT Outpatient Evaluation Rehab PT Outpatient Evaluation Start: 07/25/19 10:12 Freq: Status: Active Protocol: Document 07/25/19 11:14 PHONEDRA (Rec: 07/25/19 11:31 PHORNE [id number]) Electronically Signed By Brian Diaz, PT 07/25/19 11:14 Outpatient Therapy Subjective History Subjective History Pt is 53 yowf who presents with c/o B hip pain x 1-2 yrs, gradually worse and L > R. She reports significant hx of chronic LBP and has implanted stimulator for pain control. She had intra-articular injections performed in both hips which helped for a couple weeks, but provided little relief. She reports PMH of CCY, VENTURA, depression, anxiety. Incidental finding of B LE 3+ pitting edema from knees distally. Chief Complaint Pain,Stiff Symptom Type Ache,Sharp Symptoms Relieved By Heat Symptoms Aggravated By Physical Activity,Walking Prior Functional Limitations Recreation Activity,Walking, Bending/Stooping Current Functional Limitations Recreation Activity,Walking, Bending/Stooping Symptom Description Constant but Variable Level of pain today (0-10) 8 Pain scale - at its worst (0-10) 10 Lumbopelvic Eval Palapation tenderness bilateral buttock tenderness Yes: highly exaggerated Lumbar/Sacral Palpation Findings Tenderness Accessory Movement L-spine Vertebrae Accessory Movements Central P/A [place] that Elicit Symptoms L2 bilateral L3 bilateral L4 bilateral L5 bilateral S1 bilateral Range of Motion Lumbar Spine Active Flexion Range of 0-45 Motion (degrees) Lumbar Spine Active Extension Range of 0-20 Motion (degrees) Left Lumbar Spine Lateral Flexion Active 0-20 Range of Motion (degrees) Right Lumbar Spine Lateral Flexion 0-20 Active Range of Motion (degrees) Manual Muscle Test Bilateral Knee Extension Strength Grade 5 Normal Knee Flexion Strength Grade 5 Normal Hip Flexion Strength Grade 4 Good Hip Abduction Strength Grade 4 Good Hip Adduction Strength Grade 5 Normal Extensor Hallucis Longus Strength Grade 5 Normal Ankle Dorsiflexion Strength Grade 5 Normal Gastronemius/Soleus Strength Grade 5 Normal DTR
== END 2019-08-23 08:05 | disposition home or self-care (01) ==
LOC: PT 08:00
PROVIDERS: PCP Family Medicine; Visit Provider Clinical Nurse Specialist Family Health
DX: M54.5 Low back pain (principal); M25.552 Pain in left hip; M25.551 Pain in right hip
CPT/HCPCS: 97010; 97014; 97035; 97110; 97140; 97163; 97530; G0283

== ENCOUNTER → 2019-08-23 09:16 | Outpatient (CLI) | payer MEDICARE, SELFPAY ==
[2019-08-23 12:06] LABS: Coronavirus 19 IgG Antibody Negative (Negative); Coronavirus 19 IgM Antibody Negative (Negative)
== END ==
PROVIDERS: PCP Family Medicine; Visit Provider Family Medicine
DX: Z01.84 Encounter for antibody response examination (principal)
CPT/HCPCS: 36415; 86328

== ENCOUNTER → 2019-09-20 15:25 | Outpatient (CLI) | payer MEDICARE, SELFPAY ==
[2019-09-20 16:04] LABS: Basophils # 0.1 K/mm3 (0-0.2); Basophils % 0.4 % (0.1-2.0); Eosinophils # 0.1 K/mm3 (0.0-0.4); Eosinophils % 1.2 % (0.1-12.0); Hematocrit 39.3 % (37.0-47.0); Hemoglobin 12.7 g/dL (12.2-16.2); Lymphocytes # 1.7 K/mm3 (0.7-4.5); Mean Corpuscular HGB Conc 32.3 g/dL (31.8-35.4); Mean Corpuscular Hemoglobin 29.6 pg (27.0-31.2); Mean Corpuscular Volume 91.7 fl (81-99); Mean Platelet Volume 7.3 fl (7.4-10.4); Monocytes # 0.5 K/mm3 (0.1-1.0); Monocytes % 3.9 % (1.7-9.3); Neutrophils # 9.6 K/mm3 (1.8-7.8); Neutrophils % 80.4 % (37.0-80.0); Platelet Count 386 K/mm3 (142-424); Red Blood Count 4.29 M/mm3 (4.20-5.40); Red Cell Distribution Width 15.3 % (11.5-17.5); White Blood Count 11.9 K/mm3 (4.8-10.8)
[2019-09-20 16:12] LABS: Alanine Aminotransferase 35 U/L (12-78); Albumin Level 3.9 g/dl (3.5-5.0); Alkaline Phosphatase 150 U/L (38-126); Amylase 106 U/L (30-110); Anion Gap 15.1 mEq/L (5-15); Aspartate Amino Transferase 26 U/L (14-36); Bilirubin,Total 0.4 mg/dl (0.2-1.3); Blood Urea Nitrogen 16 mg/dl (7-17); Carbon Dioxide 28 mmol/L (22.0-30.0); Chloride 98 mmol/L (98-107); Estimated Glomerular Filt Rate 65 ml/min (>60); GFR (African American) 79 ML/MIN (>60); Globulin 3.8 g/dL (1.3-3.2); Glucose 100 mg/dl (74-100); Lipase 114 U/L (23-300); Potassium 4.1 mmoL/L (3.5-5.1); Sodium 137 mmol/L (136-145); Total Protein,Serum 7.7 g/dl (6.3-8.2)
[2019-09-23 16:54] LABS: H. pylori Breath Test Positive (Negative)
== END ==
PROVIDERS: Visit Provider Nurse Practitioner Family
DX: R10.10 Upper abdominal pain, unspecified (principal)
CPT/HCPCS: 36415; 80053; 82150; 83013; 83690; 85025

== ENCOUNTER 2019-09-28 07:41 | Day surgery (SDC) | payer MEDICARE, SELFPAY ==
[2019-09-28] VITALS (8 sets, daily range): BP systolic 122–135; BP diastolic 56–88; PULSE 60–88; RESP 18–20; TEMP 36.3; O2SAT 96–99; BMI 48.5
--- NOTE | 2019-09-28 11:36 | HMH.PMPROC ---
- Procedure Date: 09/28/19 Time: 11:39 Anesthesiologist:: Nilson Canchola MD Complications:: None Pre-procedure Diagnosis:: Degenerative disc disease of lumbar spine with lumbar radiculopathy symptoms Post-procedure Diagnosis:: Same Indications for Procedure:: Patient is a pleasant 53-year-old white female who we have been treating for low back pain with lumbar colopathy symptoms. She does have a [employer] spinal cord stimulator in place. This does help some with her leg pain however she does have some increasing back pain. Most of her pain is at night. She does have a also increasing pain while standing walking or even sitting. She is failed all previous conservative therapy including injections, physical therapy and oral medications. We will plan on reprogramming her stimulator which she has had for approximately 3 years. We will also plan on intrathecal pump trial today to see if this helps with her symptoms. Procedure Details:: Pain pump trial Informed consent was obtained and the risk and benefits of the procedure was explained to the patient. The patient was taken to the procedure room and placed prone on the procedure table. Patient was prepped and draped in sterile fashion. C-arm fluoroscopy was used to view the lumbar spine. The skin and subcutaneous tissues were anesthetized using lidocaine. I placed a 5 inch 20-gauge spinal needle into the L4-5 interspace and advanced until clear CSF was obtained. We withdrew approximately 2 mL's of CSF. After this we then injected intrathecal fentanyl single shot bolus of 25 mcg followed by saline and followed by the previous CSF that was withdrawn. The needle and catheter were then removed and a Band-Aid was placed. Patient tolerated the procedure well with no complications. We reevaluated the patient after 30 minutes to 1 hour. She was also reassessed by physical therapy. Patient was itching however she did have 80 to 90% relief of her pain symptoms. She was ambulatory and able to walk better stand longer and no pain while sitting. She was proceed with permanent placement. We will plan on permanent placement with intrathecal Dilaudid 1 mg/mL to start at 0.1 mg/day. Plan and Disposition:: Plan and disposition: We will follow-up with her and have her see Dr. Gold for permanent pain pump placement. We will plan on permanent pain pump placement with intrathecal Dilaudid 1 mg per ml to start at 0.1 mg/day. Catheter tip will be at the L1 vertebral body. We anticipate to explant neurostimulator once intrathecal pain pump is optimized.
--- NOTE | 2019-09-28 13:26 | PC.NURSE ---
1125-DR. Canchola at bedside
--- NOTE | 2019-09-28 13:27 | PC.NURSE ---
1105-Physical therapy at bedside for evaluation
--- NOTE | 2019-09-28 13:27 | PC.NURSE ---
1110-pt ambulatory, gait steady. no c/o pain. continues to c/o itching. aware.
--- NOTE | 2019-09-28 13:27 | PC.NURSE ---
1015-pt c/o feeling nauseated and dizzy.pt legs elevated in chair. cool washcloth applied to neck. no c/o pain. VSS
--- NOTE | 2019-09-28 13:28 | PC.NURSE ---
1020-pt reports no pain. states dizziness and nausea has subsided. vss. no needs or concerns at this time.
--- NOTE | 2019-09-28 13:29 | PC.NURSE ---
1045-pt resting in chair, tolerating PO intake. at bedside. no c/o pain. VSS. pt without needs or concerns at this time
--- NOTE | 2019-09-28 13:29 | PC.NURSE ---
1100-pt resting in chair at bedside. no c/o pain. continues to c/o itching. states the itching has eased since medicated with benadryl. VSS, no c/o pain. no needs or concerns at this time
== END 2019-09-28 11:30 | disposition home or self-care (01) ==
LOC: SC.PAINP 07:42
PROVIDERS: PCP Family Medicine; Visit Provider Anesthesiology
DX: M51.16 Intervertebral disc disorders with radiculopathy, lumbar region (principal); E66.9 Obesity, unspecified; I10 Essential (primary) hypertension; Z96.82 Presence of neurostimulator; Z68.42 Body mass index [BMI] 45.0-49.9, adult; J45.909 Unspecified asthma, uncomplicated; F32.9 Major depressive disorder, single episode, unspecified; G43.909 Migraine, unspecified, not intractable, without status migrainosus; Z79.890 Hormone replacement therapy; Z88.0 Allergy status to penicillin; Z88.8 Allergy status to other drugs, medicaments and biological substances; Z79.899 Other long term (current) drug therapy
CPT/HCPCS: 62323; 96365; 96372

== ENCOUNTER → 2019-10-03 12:06 | Outpatient (CLI) | payer MEDICARE, SELFPAY | PROVIDERS: PCP Family Medicine; Visit Provider Family Medicine | DX: Z03.818 Encounter for observation for suspected exposure to other biological agents ruled out (principal) | CPT/HCPCS: U0003 ==

== ENCOUNTER 2019-10-05 17:37 | Emergency (ER) | payer MEDICARE, SELFPAY ==
[2019-10-05 17:38] VITALS: BP 121/78; PULSE 98; RESP 18; TEMP 36.7; O2SAT 98; BMI 46.0
--- NOTE | 2019-10-05 18:05 | CT_ITS ---
PROCEDURE: CT ABDOMEN PELVIS W CON CLINICAL INDICATION: abd pain Epigastric pain, history of pancreatitis COMPARISON: CT ABDPELW CT abdomen pelvis w con from 01/04/2018 TECHNIQUE: IV Contrast: 75ML OPTIRAY 350 Oral Contrast None Axial images obtained with sagittal and coronal reformats. All CT scans at the facility use one or more dose reduction, viz: automated exposure control, ma/kV adjustment per patient size (including targeted exams where dose is matched to indication, i.e. head), or iterative reconstruction technique. FINDINGS: LOWER THORAX: There is a 6 mm subpleural noncalcified nodule in the left lower lobe. A 3 mm noncalcified nodule right lower lobe unchanged. 4 mm noncalcified nodule lingula subpleural ABDOMEN & PELVIS: Status post cholecystectomy with pneumobilia. 7 mm hypodensity right hepatic lobe unchanged. 6 mm hypodensity right hepatic lobe centrally unchanged. The spleen pancreas and right adrenal gland are unremarkable. There is a 18 x 15 mm low-dense left adrenal nodule consistent with an adenoma which is slightly larger from 01/04/2018. Previously measured 14 mm. No renal or ureteral calculi. No intestinal obstruction or free air. No evidence of appendicitis or diverticulitis. There is colonic diverticulosis. Mild amount of retained colonic feces. There are post hysterectomy changes. There is a neurostimulator device present entering the thecal sac at the L2-L3 region. The superior aspect of the device is at the T8-T9 area. No acute bony anomalies. There are few scattered small mesenteric and retroperitoneal lymph nodes. IMPRESSION: 1. No acute finding. 2. Status post cholecystectomy with pneumobilia. 3. Multiple small pulmonary nodules 1 of which is new in the left lower lobe. Six-month follow-up suggested. 4. 18 mm left adrenal nodule which has the characteristics of an adenoma but is slightly increased in size. Continued follow-up suggested 5. Colonic diverticulosis without diverticulitis with a mild amount of retained colonic feces Dictated by: Tony Fox MD 10/06/2019 09:39 Tony Fox MD in [place] 10/06/2019 09:39
[2019-10-05 18:08] VITALS: BP 122/66; PULSE 82; RESP 20; O2SAT 97
[2019-10-05 18:14] LABS: Basophils # 0.1 K/mm3 (0-0.2); Basophils % 0.5 % (0.1-2.0); Eosinophils # 0.2 K/mm3 (0.0-0.4); Eosinophils % 1.4 % (0.1-12.0); Hematocrit 41.7 % (37.0-47.0); Hemoglobin 14.1 g/dL (12.2-16.2); Lymphocytes # 2.2 K/mm3 (0.7-4.5); Lymphocytes % 17.6 % (10-50); Mean Corpuscular HGB Conc 33.8 g/dL (31.8-35.4); Mean Corpuscular Hemoglobin 30.4 pg (27.0-31.2); Mean Corpuscular Volume 89.9 fl (81-99); Mean Platelet Volume 7.8 fl (7.4-10.4); Monocytes # 0.5 K/mm3 (0.1-1.0); Monocytes % 3.8 % (1.7-9.3); Neutrophils # 9.5 K/mm3 (1.8-7.8); Neutrophils % 76.7 % (37.0-80.0); Platelet Count 447 K/mm3 (142-424); Red Blood Count 4.64 M/mm3 (4.20-5.40); Red Cell Distribution Width 15.2 % (11.5-17.5); White Blood Count 12.3 K/mm3 (4.8-10.8)
[2019-10-05 18:15] LABS: Chloride 104 mmol/L (98-107); Potassium 4.1 mmoL/L (3.5-5.1); Sodium 138 mmol/L (136-145)
[2019-10-05 18:17] LABS: Alanine Aminotransferase 27 U/L (12-78); Amylase 123 U/L (30-110); Aspartate Amino Transferase 27 U/L (14-36); Bilirubin,Total 0.2 mg/dl (0.2-1.3); Blood Urea Nitrogen 11 mg/dl (7-17); Creatinine Clearance Estimated 70 mL/min (50-200); Estimated Glomerular Filt Rate 57 ml/min (>60); GFR (African American) 69 ML/MIN (>60)
[2019-10-05 18:18] LABS: Albumin Level 3.9 g/dl (3.5-5.0); Alkaline Phosphatase 115 U/L (38-126); Anion Gap 14.1 mEq/L (5-15); Calcium 9.1 mg/dl (8.4-10.2); Carbon Dioxide 24 mmol/L (22.0-30.0); Globulin 4.1 g/dL (1.3-3.2); Glucose 115 mg/dl (74-100); Lipase 93 U/L (23-300)
[2019-10-05 19:29] VITALS: BP 140/59; PULSE 74; RESP 18; O2SAT 95
[2019-10-05 20:11] VITALS: BP 120/46; PULSE 76; RESP 18; O2SAT 98
--- NOTE | 2019-10-05 20:18 | HMH.EDNVD ---
ED Disposition Clinical Impression: Abdominal pain Qualifiers: Abdominal location: left upper quadrant Qualified Code(s): R10.12 - Left upper quadrant pain Disposition: Home, Self-Care Condition on Discharge: Good Instructions: DI for Acute Abdomen Additional Instructions: clear liquids and see gi and pcp for follow up Prescriptions: Hydrocod/Acet 5/325 mg [[place] 5/325mg tablet] 1 tab PO Q6HP PRN #10 tab PRN Reason: Moderate To Severe Pain Prescription Printed Referrals: Dandy Clark MD [Primary Care Provider] - - Critical Care Critical Care Time: No Attestation: On 10/05/19, the high probability of a clinically significant, sudden or life threatening deterioration of the following system(s) required my full and direct attention, intervention and personal management. The time I documented below is in addition to time spent performing reported procedures but includes the following listed in this critical care notation. Medical Decision Making - Medical Records Medical records reviewed: Yes: I reviewed the patient's medical records. - Andres Inquiry Pt receiving controlled substance: No Vital Signs: 10/05/19 17:38 10/05/19 18:08 10/05/19 19:29 Temperature 98.1 F Temperature Source Oral Pulse Rate [Right] 98 H 82 74 Respiratory Rate 18 20 18 Blood Pressure [Right Arm] 121/78 122/66 140/59 L Blood Pressure Mean [Right Arm] 92 84 86 Blood Pressure Source [Right Arm] Automatic Cuff Blood Pressure Position [Right Arm] Sitting 02 Sat by Pulse Oximetry 98 97 95 Oxygen Delivery Method Room Air Room Air 10/05/19 20:11 Temperature Temperature Source Pulse Rate [Right] 76 Respiratory Rate 18 Blood Pressure [Right Arm] 120/46 L Blood Pressure Mean [Right Arm] 70 Blood Pressure Source [Right Arm] Blood Pressure Position [Right Arm] 02 Sat by Pulse Oximetry 98 Oxygen Delivery Method Room Air - Lab Data Lab results reviewed: Yes: I reviewed the patient's lab results. Lab Results 10/05/19 17:56: WBC 12.3 H, RBC 4.64, Hgb 14.1, Hct 41.7, MCV 89.9, MCH 30.4, MCHC 33.8, RDW 15.2, Plt Count 447 H, MPV 7.8, Neut % (Auto) 76.7, Lymph % (Auto) 17.6, Hanson % (Auto) 3.8, Eos % (Auto) 1.4, Baso % (Auto) 0.5, Neut # (Auto) 9.5 H, Lymph # (Auto) 2.2, Hanson # (Auto) 0.5, Eos # (Auto) 0.2, Baso # (Auto) 0.1 10/05/19 17:56: Sodium 138, Potassium 4.1, Chloride 104, Carbon Dioxide 24, Anion Gap 14.1, BUN 11, Creatinine 1.00, Estimated Creat Clear 70, Estimated GFR 57 L, Est GFR ( Amer) 69, Glucose 115 H, Calcium 9.1, Total Bilirubin 0.2, AST 27, ALT 27, Alkaline Phosphatase 115, Total Protein 8.0, Albumin 3.9, Globulin 4.1 H, Albumin/Globulin Ratio 1.0 L, Amylase 123 H, Lipase 93 Result diagrams: 10/05/19 17:56 10/05/19 17:56 Orders (Tests/Meds): ED MEDICATIONS Generic Name Dose Route Start Last Admin Trade Name Clint PRN Reason Stop Dose Admin Sodium Chloride 1,000 mls @ 999 mls/hr 10/05/19 18:15 10/05/19 18:08 Sod Chlor 0.9% 1000ml Bag IV 10/05/19 19:15 999 mls/hr .Q1H1M PEDRO Administration Sodium Chloride 8 ml 10/05/19 20:22 10/05/19 20:39 Sodium Chloride 0.9% 10ml Vial IV 11/04/19 20:21 8 ml NEEDED PRN Administration dilute pepcid Discontinued Medications Generic Name Dose Route Start Last Admin Trade Name Clint PRN Reason Stop Dose Admin Famotidine 20 mg 10/05/19 20:22 10/05/19 20:39 Pepcid 20mg/2ml Vial IV 10/05/19 20:23 20 mg ONCE ONE Administration Ioversol 75 ml 10/05/19 19:00 10/05/19 19:01 Rad-Optiray 350 100ml Vial IV 10/05/19 19:01 75 ml ONCE ONE Administration Protocol Metoclopramide HCl 10 mg 10/05/19 20:23 10/05/19 20:39 Reglan 10mg/2ml Vial IVP 10/05/19 20:24 10 mg ONCE ONE Administration Morphine Sulfate 4 mg 10/05/19 18:06 10/05/19 18:08 Morphine 4mg/Ml Syringe IV 10/05/19 18:07 4 mg ONCE ONE Administration Ondansetron HCl 4 mg 10/05/19 18:06 10/05/19 18:08 Zofran 4mg/2ml V
[2019-10-05 21:31] LABS: Microscopic, Urine URINE MICROSCOPIC (MICROSCOPIC)
[2019-10-05 21:41] LABS: Appearance,Urine CLEAR (Clear); Bilirubin,Urine Negative (Negative); Blood, Urine 1+ (Negative); Color,Urine YELLOW (Yellow); Glucose,Urine (UA) Negative (Negative); Ketones,Urine Negative (Negative); Leukocyte Esterase,Urine Negative (Negative); Nitrate,Urine Negative (Negative); PH,Urine 5.5 (5.0-8.5); Protein,Urine Negative (Negative); Specific Gravity, Urine <= 1.005 (1.005-1.030); Urobilinogen,Urine 0.2 EU/dl (0.2)
[2019-10-05 21:46] VITALS: BP 108/72; PULSE 67; RESP 18; TEMP 36.7; O2SAT 97
[2019-10-05 21:52] VITALS: BP 108/72; PULSE 64; RESP 18; O2SAT 97
[2019-10-05 22:24] LABS: Bacteria,Urine Trace /lpf; WBC,Urine Occasional #/hpf (0-3)
== END 2019-10-05 21:56 | disposition home or self-care (01) ==
PROVIDERS: Emergency Provider Emergency Medicine; PCP Family Medicine
DX: R10.12 Left upper quadrant pain (principal); I10 Essential (primary) hypertension; F41.8 Other specified anxiety disorders; K21.9 Gastro-esophageal reflux disease without esophagitis; Z79.899 Other long term (current) drug therapy; Z88.0 Allergy status to penicillin
CPT/HCPCS: 74177; 80053; 81001; 82150; 83690; 85025; 96365; 96375; 99284; J2405; Q9967

== ENCOUNTER → 2019-11-10 07:56 | Outpatient (CLI) | payer MEDICARE, SELFPAY ==
[2019-11-10 10:02] LABS: Coronavirus 19 IgG Antibody Negative (Negative); Coronavirus 19 IgM Antibody Negative (Negative)
== END ==
PROVIDERS: Visit Provider Internal Medicine Gastroenterology
DX: Z01.89 Encounter for other specified special examinations (principal); Z13.810 Encounter for screening for upper gastrointestinal disorder; R10.9 Unspecified abdominal pain
CPT/HCPCS: 36415; 86328

== ENCOUNTER 2019-11-12 12:22 | Day surgery (SDC) | payer MEDICARE, SELFPAY ==
[2019-11-06 14:15] VITALS: BMI 47.8
[2019-11-12] VITALS (7 sets, daily range): BP systolic 105–148; BP diastolic 56–88; PULSE 67–79; RESP 18; TEMP 35.7–36.6; O2SAT 95–98
--- NOTE | 2019-11-12 14:25 | P.PN_ITS ---
[facility] Anesthesia Checklist - Patient Identification Patient Identification: Arm Band - Structural Data Admitted From: Home Planned Operative Procedure/s: egd Consent for Planned Operative Procedure(s) Verified: Yes Verified Documents: Surgical Consent, History and Physical - NPO Status Verified Time NPO: 00:00 - Additional verifications Anesthesia Reactions: No Hx Blood Transfusions: No - Airway Assessment C-Spine Mobility Assessed: Yes (mp2) TMJ Mobility Assessed: Yes Dentition: Good Dentition - Neurological Assessment Level of Consciousness: Awake, Alert - Anesthesia Plan Anesthesia Risk discussed: Yes Anesthesia Plan: Verified ASA Class: III Anesthesia Type: MAC [facility] History Medical History: Reports:: Anxiety, Depression, Gastroesophageal Reflux Disease(GERD), Hypertension Denies:: Cancer, Diabetes Mellitus Type 1, Diabetes Mellitus Type 2, Hyperlipidemia, Internal Pacemaker, Lung Disease, MRSA, Seizures *Have you ever received a pneumonia vaccine?: No *Have you received a flu vaccine this season?: No Other Medical History: Reports: Arthritis, Glaucoma, Hormone Therapy, Hypothyroidism, Thyroid Disease Anesthesia experience/problems:: nac Laterality Cases: Right: Arthroscopy Knee, Bilateral: Other Other Surgeries: Yes: Cholecystectomy, Colonoscopy, EGD, Hysterectomy-Total, Other (stimulator implant). No: Pacemaker Amputation: No Fractures: Yes (LEFT WRIST) - *Social History Last grade of school completed: Some college Smoking Status: Former smoker Alcohol Intake: never Substance Use Type: denies use *Occupational Status:: disabled Housing: house Household Members: spouse, other *Travel in the last 8 weeks: None - Psychiatric History Pschychiatric History:: Reports:: Anxiety, Depression Family Hx:: Cancer, Coronary Artery Disease, Diabetes, Hyperlipidemia, Hypertension, Thyroid Disorder
--- NOTE | 2019-11-12 15:04 | HMH.PROC ---
[facility] Procedure Note Procedure Note:: Upper Endoscopy Procedure Report: Esophagogastroduodenoscopy with cold biopsies Endoscopost: Fred Nix II, MD Referring Physician: Dandy Clark MD Date of Procedure: November 12, 2019 Equipment: Olympus GIF 180 standard upper endoscope Sedation: MAC sedation Indications: Mrs. Bergman is a 54-year-old female with recurrent dyspepsia. She reports epigastric abdominal pain and discomfort. She has had chronic dyspepsia as well as sphincter of Oddi dysfunction. She also has a history of H. pylori a and received Prevpac. Her symptoms worsened with this treatment. She reports bloating, nausea and early satiety. She has a long history of IBS with diarrhea alternating with constipation. She is on tramadol but no other opiate medication. She has had SOD with ERCP and biliary sphincterotomy in August 2016 and again in February 2018. She did have prior pancreatitis and feels like this is going into an attack of pancreatitis. She is taking Linzess for her bowels. She does have some stress and anxiety. Her lab work was normal (hemoglobin 12.7/hematocrit 39.3). Procedure: Prior to the procedure, a history and physical exam was performed, and patient's medications and allergies were reviewed. The risks, benefits and alternatives of the sedation and procedure were discussed with the patient. All questions were answered and informed consent was obtained. The patient was brought to the procedure room. Patient identification and proposed procedure were verified by the physician and the nurse. The patient was placed in a left lateral decubitus position and the scope was passed under direct vision. Throughout the procedure, the patient's blood pressure, pulse, and oxygen saturations were monitored continuously. The upper GI endoscopy was accomplished without difficulty. The patient tolerated the procedure well. Findings: The scope was passed directly into the upper esophagus and advanced to the third portion of the duodenum. The post bulbar duodenum and duodenal bulb were normal with normal mucosa and conniventes. The ampulla was well visualized and appeared normal. The scope was withdrawn through a normal duodenal bulb and pylorus into the stomach. There was bile reflux with linear reactive gastropathy of the antrum and body of the stomach. There was mild chronic gastritis of the body and fundus of the stomach there was a prepyloric polyp that was 7 mm and removed via cold biopsy. 2 biopsies were taken in the antrum and along the lesser curvature for histology to rule out gastritis and/or H pylori. Upon retroflexion there was no hiatal hernia. The scope was then withdrawn into the esophagus. There was no evidence of reflux esophagitis. There was tertiary contractions and mild esophageal dysmotility. The remainder of the esophageal mucosa was normal. Impression: 1. Bile reflux with linear reactive gastropathy and very mild chronic gastritis 2. Prepyloric gastric polyp (7 mm) Plan: I will follow-up the biopsies. The patient does have functional dyspepsia. We will discuss additional treatment options.
== END 2019-11-12 15:50 | disposition home or self-care (01) ==
LOC: OUTP 12:24
PROVIDERS: PCP Family Medicine; Visit Provider Internal Medicine Gastroenterology
PROC: 0DJ08ZZ Inspection of Upper Intestinal Tract, Via Natural or Artificial Opening Endoscopic (ICD-10-PCS; CPT 43235; principal; 2019-11-12 13:30)
DX: K21.9 Gastro-esophageal reflux disease without esophagitis (principal); K31.9 Disease of stomach and duodenum, unspecified; K29.70 Gastritis, unspecified, without bleeding; K31.7 Polyp of stomach and duodenum; K22.4 Dyskinesia of esophagus; Z87.19 Personal history of other diseases of the digestive system; K58.2 Mixed irritable bowel syndrome; I10 Essential (primary) hypertension; F41.9 Anxiety disorder, unspecified; F32.9 Major depressive disorder, single episode, unspecified; M19.90 Unspecified osteoarthritis, unspecified site; E03.9 Hypothyroidism, unspecified
CPT/HCPCS: 43239; 88305; 88342

== ENCOUNTER → 2019-11-27 10:49 | Outpatient (CLI) | payer MEDICARE, SELFPAY ==
[2019-11-27 11:44] LABS: Basophils # 0.1 K/mm3 (0-0.2); Eosinophils # 0.2 K/mm3 (0.0-0.4); Eosinophils % 2.6 % (0.1-12.0); Hematocrit 43.3 % (37.0-47.0); Lymphocytes # 1.5 K/mm3 (0.7-4.5); Lymphocytes % 20.1 % (10-50); Mean Corpuscular Hemoglobin 28.7 pg (27.0-31.2); Mean Corpuscular Volume 95.7 fl (81-99); Mean Platelet Volume 7.2 fl (7.4-10.4); Monocytes # 0.5 K/mm3 (0.1-1.0); Monocytes % 6.1 % (1.7-9.3); Neutrophils # 5.4 K/mm3 (1.8-7.8); Neutrophils % 70.3 % (37.0-80.0); Platelet Count 384 K/mm3 (142-424); Red Blood Count 4.52 M/mm3 (4.20-5.40); Red Cell Distribution Width 15.4 % (11.5-17.5); White Blood Count 7.7 K/mm3 (4.8-10.8)
[2019-11-27 12:27] LABS: Chloride 104 mmol/L (98-107)
[2019-11-27 12:28] LABS: Potassium 4.6 mmoL/L (3.5-5.1); Sodium 139 mmol/L (136-145)
[2019-11-27 12:30] LABS: Alanine Aminotransferase 40 U/L (12-78); Albumin Level 3.8 g/dl (3.5-5.0); Albumin/Globulin Ratio 1.1 (1.1-1.8); Alkaline Phosphatase 103 U/L (38-126); Anion Gap 11.6 mEq/L (5-15); Aspartate Amino Transferase 25 U/L (14-36); Bilirubin,Total 0.3 mg/dl (0.2-1.3); Blood Urea Nitrogen 19 mg/dl (7-17); Carbon Dioxide 28 mmol/L (22.0-30.0); Estimated Glomerular Filt Rate 65 ml/min (>60); GFR (African American) 78 ML/MIN (>60); Globulin 3.4 g/dL (1.3-3.2); Total Protein,Serum 7.2 g/dl (6.3-8.2)
[2019-11-27 12:31] LABS: Calcium 9.2 mg/dl (8.4-10.2); Chol/HDL Ratio 3.1 (1-3.5); Cholesterol 149 mg/dl (140-200); Glucose 84 mg/dl (74-100); HDL Cholesterol 48 mg/dl (40-60); Triglycerides 154 mg/dl (30-150); VLDL Cholesterol 31 mg/dL (0-40)
[2019-11-27 12:43] LABS: Direct LDL Cholesterol 71.58 mg/dL (100-129)
[2019-11-27 12:52] LABS: Free Thyroxine Index 3.3 ug/dL (5.93-13.13); T4 (Thyroxine) 11.1 ug/dl (5.53-11.0); Triiodothryronine (T3) Uptake 30 % (23.5-40.5)
[2019-11-27 13:06] LABS: Thyroid Stimulating Hormone 2.56 uIU/mL (0.465-4.68)
== END ==
PROVIDERS: Visit Provider Nurse Practitioner Obstetrics & Gynecology
DX: Z01.419 Encounter for gynecological examination (general) (routine) without abnormal findings (principal); Z79.899 Other long term (current) drug therapy
CPT/HCPCS: 36415; 80053; 80061; 84436; 84443; 84479; 85025

== ENCOUNTER → 2019-12-03 09:50 | Outpatient (POV) | payer MEDICARE, SELFPAY ==
[2019-12-03 10:11] VITALS: BP 128/88; PULSE 89; RESP 18; O2SAT 98; BMI 46.0
--- NOTE | 2019-12-03 13:17 | HMH.PAINSOAP ---
[facility] Pain Management SOAP Note Subjective:: She is a pleasant 54-year-old white female who we have been treating for low back pain with lumbar radiculopathy symptoms. She has a [employer] spinal cord stimulator in place this does help some with her leg pain however she has increasing back pain. She had a intrathecal pain pump trial where she got 90% relief of her symptoms. Patient wanted to move forward with an implant however her insurance has denied her. Patient rates her pain a 9 out of 10. Patient insurance states that due to the fact that she has a neurostimulator that they will not approve an intrathecal pain pump. Patient and I discussed changing insurances she would like to try to move forward with this. Patient's tried and failed therapy, neurostimulator changes, medications, anti-inflammatories, injection therapy. ROS General: no recent weight change, no fever, no sleep disturbances Respiratory: no cough, no shortness of air, no recurring pulmonary infections Cardiovascular/Peripheral Vascular: No chest pain, No palpitations, no edema, no shortness of breath. Gastrointestinal: no new onset incontinence, normal bowel movements reported Genitourinary: no new onset incontinence Musculoskeletal: Back pain, leg pain Psychiatric: normal mood/ affect, Neurological: [denies new onset weakness in extremities], [denies new onset balance issues] Objective:: Physical Exam General: Alert and oriented x3, no acute distress, pleasant and cooperative, [on room air] Lungs: Resps E/U, Symmetrical chest expansion, Eyes: PERRL Musculoskeletal: Flexion and extension of lumbar spine somewhat guarded secondary to pain, deep tendon reflexes normal, strength in upper and lower extremities [5/5], [abnormal gait noted] Neurological: speech clear, sap basis administrator equal, no gross sensory deficits Assessment:: Degenerative disc disease lumbar spine lumbar radiculopathy symptoms Plan:: Patient is going to look into changing her insurance. I encouraged her to do so patient's insurance has denied her intrathecal therapy along with an appeal. I will follow-up with the patient in several weeks reassess her symptoms at that time she has been instructed to call the office if she has any issues prior to her next appointment. Dr. Canchola has reviewed this note and agrees with this plan of care. This note was dictated using voice recognition software and may contain errors or omissions [facility] History I have reviewed the patient's past medical history: Yes Medical History: Reports:: Anxiety, Depression, Gastroesophageal Reflux Disease(GERD), Hypertension Denies:: Cancer, Diabetes Mellitus Type 1, Diabetes Mellitus Type 2, Hyperlipidemia, Internal Pacemaker, Lung Disease, MRSA, Seizures *Have you ever received a pneumonia vaccine?: Yes *Have you received a flu vaccine this season?: Yes Other Medical History: Reports: Arthritis, Glaucoma, Hormone Therapy, Hypothyroidism, Thyroid Disease Laterality Cases: Right: Arthroscopy Knee, Bilateral: Other Other Surgeries: Yes: Cholecystectomy, Colonoscopy, EGD, Hysterectomy-Total, Other (stimulator implant). No: Pacemaker Amputation: No Fractures: Yes (LEFT WRIST) - *Social History Smoking Status: Former smoker Alcohol Intake: never Alcohol Intake Frequency:: other Substance Use Type: denies use *Occupational Status:: other Housing: house Household Members: spouse, other *Travel in the last 8 weeks: None - Psychiatric History Pschychiatric History:: Reports:: Anxiety, Depression Family Hx:: Cancer, Coronary Artery Disease, Diabetes, Hyperlipidemia, Hypertension, Thyroid Disorder
== END ==
PROVIDERS: PCP Family Medicine; Visit Provider Clinical Nurse Specialist Family Health
DX: M51.16 Intervertebral disc disorders with radiculopathy, lumbar region (principal)
CPT/HCPCS: 99212

== ENCOUNTER → 2020-01-21 13:55 | Outpatient (POV) | payer MEDICARE, SELFPAY | PROVIDERS: Visit Provider Nurse Practitioner Family | DX: Z00.00 Encounter for general adult medical examination without abnormal findings (principal) ==

== ENCOUNTER → 2020-01-24 09:57 | Outpatient (POV) | payer MEDICARE, MEDICAID, SELFPAY ==
[2020-01-24 10:28] VITALS: BP 135/88; PULSE 85; RESP 18; TEMP 36.8; O2SAT 98; BMI 48.8
--- NOTE | 2020-01-24 10:35 | HMH.PAINSOAP ---
[facility] Pain Management SOAP Note Subjective:: Patient is a pleasant 54-year-old white female who we are treating for low back pain and lumbar radiculopathy. Patient rates her pain today a 9 out of 10. Mostly in her low back and legs. Patient has a [employer] spinal cord stimulator and has not been getting much relief from it. Patient had a intrathecal pain pump trial which gave her 90% relief of her symptoms. She like to move forward with an implant. Patient has tried and failed therapy, neurostimulator changes, medications, anti-inflammatories, injection therapy. ROS General: no recent weight change, no fever, no sleep disturbances Respiratory: no cough, no shortness of air, no recurring pulmonary infections Cardiovascular/Peripheral Vascular: No chest pain, No palpitations, no edema, no shortness of breath. Gastrointestinal: no new onset incontinence, normal bowel movements reported Genitourinary: no new onset incontinence Musculoskeletal: Back pain, leg pain Psychiatric: normal mood/ affect Neurological: [denies new onset weakness in extremities], [denies new onset balance issues] Objective:: Physical Exam General: Alert and oriented x3, no acute distress, pleasant and cooperative, [on room air] Lungs: Resps E/U, Symmetrical chest expansion, Eyes: PERRL Musculoskeletal: Flexion and extension of lumbar spine somewhat guarded secondary to pain, deep tendon reflexes normal, strength in upper and lower extremities [5/5], [abnormal gait noted] Neurological: speech clear, smokehouse operator equal, no gross sensory deficits Assessment:: Degenerative disc disease lumbar spine lumbar radiculopathy Plan:: We will schedule a intrathecal pain pump permanent placement. We will an expectation of explanting her neurostimulator. She is gotten better relief from her trial then she has her neurostimulator. Patient I had a long discussion about weight loss. I do believe that this contributes to her pain. I will follow-up with her after her placement reassess her symptoms at that time she has been instructed to call the office if she has any issues prior to her next appointment. Dr. Canchola has reviewed this note and agrees with this plan of care. This note was dictated using voice recognition software and may contain errors or omissions [facility] History I have reviewed the patient's past medical history: Yes Medical History: Reports:: Anxiety, Depression, Gastroesophageal Reflux Disease(GERD), Hypertension Denies:: Cancer, Diabetes Mellitus Type 1, Diabetes Mellitus Type 2, Hyperlipidemia, Internal Pacemaker, Lung Disease, MRSA, Seizures *Have you ever received a pneumonia vaccine?: Yes *Have you received a flu vaccine this season?: Yes Other Medical History: Reports: Arthritis, Glaucoma, Hormone Therapy, Hypothyroidism, Thyroid Disease Laterality Cases: Right: Arthroscopy Knee, Bilateral: Other Other Surgeries: Yes: Cholecystectomy, Colonoscopy, EGD, Hysterectomy-Total, Other (stimulator implant). No: Pacemaker Amputation: No Fractures: Yes (LEFT WRIST) - *Social History Smoking Status: Former smoker Alcohol Intake: never Alcohol Intake Frequency:: other Substance Use Type: denies use *Occupational Status:: other Housing: house Household Members: spouse, other *Travel in the last 8 weeks: None - Psychiatric History Pschychiatric History:: Reports:: Anxiety, Depression Family Hx:: Cancer, Coronary Artery Disease, Diabetes, Hyperlipidemia, Hypertension, Thyroid Disorder
== END ==
PROVIDERS: PCP Family Medicine; Visit Provider Clinical Nurse Specialist Family Health
DX: M51.16 Intervertebral disc disorders with radiculopathy, lumbar region (principal)
CPT/HCPCS: 99212

== ENCOUNTER → 2020-03-03 13:56 | Outpatient (CLI) | payer MEDICARE, MEDICAID, SELFPAY ==
--- NOTE | 2020-03-03 14:02 | XR_ITS ---
PROCEDURE: XR KNEE LT 3V CLINICAL INDICATION: SWELLING OF LT KNEE JOINT, LT LATERAL KNEE PAIN COMPARISON: CR [id number] KNEE-3 VIEWS-RT from 07/22/2016 FINDINGS: No fracture or dislocation. No lytic or blastic change. There is normal mineralization. There are [id number]-[id number] osteoarthritic changes involving all 3 compartments. Calcific density is present in the suprapatellar region and may be due to enthesophyte. Other findings:None. IMPRESSION: Osteoarthritis otherwise negative Dictated by: Tony Fox MD 03/03/2020 14:33 Tony Fox MD in [place] 03/03/2020 14:33
== END ==
PROVIDERS: PCP Family Medicine; Visit Provider Nurse Practitioner Family
DX: M25.562 Pain in left knee (principal); M25.462 Effusion, left knee
CPT/HCPCS: 73562

== ENCOUNTER 2020-03-08 14:09 | Emergency (ER) | payer MEDICARE, MEDICAID, SELFPAY ==
[2020-03-08 14:45] VITALS: BP 149/79; PULSE 87; RESP 19; TEMP 36.8; O2SAT 98; BMI 53.8
--- NOTE | 2020-03-08 15:16 | HMH.EDUTC ---
[facility] [place] Clinical Impression: Exposure to COVID-19 virus Disposition: Home, Self-Care Condition on Discharge: Good Instructions: DI for COVID-19 (Suspected or Confirmed ), Coronavirus Disease 2019, Preventing the Spread of Coronavirus Discharge Instructions Additional Instructions: *Monitor Temp, Over the counter Motrin or Tylenol as directed/as needed Tylenol every 4 hours and Motrin every 6 hours (as long as your family doctor has told you that you can take it) for fever or pain. and straight to ER if unable to lower temp less than 101.0 after medication given Follow up IMMEDIATELY for new or worsening symptoms or no Noticeable improvement over the next 48-72 hours. 911 for difficulty breathing or swallowing You were tested for today for COVID19 your test result should be back in the next 24-48 hours, you may call to the [facility] to see if your test results are back in the next 48 hours [phone] [facility] hours are 9am-9pm You was given a handout with instructions for Self Quarantine and Self isolation for while you wait on test results and what to do if they are positive If you are positive the Health Dept will be contacting you also Referrals: Dandy Clark MD [Primary Care Provider] - As needed Forms: Work/School Release Time of Disposition: 15:18 Medical Decision Making - Andres Inquiry Pt receiving controlled substance: No Andres was queried for this patient: No Vital Signs: 03/08/20 14:45 Temperature 98.2 F Temperature Source Oral Pulse Rate [Right Brachial] 87 Respiratory Rate 19 Blood Pressure [Right Arm] 149/79 H Blood Pressure Mean [Right Arm] 102 Blood Pressure Source [Right Arm] Automatic Cuff Blood Pressure Position [Right Arm] Sitting 02 Sat by Pulse Oximetry 98 Oxygen Delivery Method Room Air Orders (Tests/Meds): ORDERS Category Date Time Status Covid-19 Nasal PCR ([facility]) Routine Lab 03/08/20 14:17 Ordered [facility] [place] HPI - General Stated complaint: covid test Time Seen by Provider: 03/08/20 15:16 Mode of Arrival: Ambulatory Source of Information: Patient Limitations: No Limitations Description of Symptoms (Recalled from Triage Doc. by RN): COVID TEST D/T EXPOSURE. DENIES SYMPTOMS HEENT Symptoms (Recalled from RN notes): No Resp Symptoms (Recalled from RN notes): No Skin Symptoms (Recalled from RN notes): No MS Symptoms (Recalled from RN notes): No Functional Status (Recalled from RN notes): WNL - History of Present Illness Provider Complaint: Patient state that her daughter in law recently tested positive for COVID States she has not been having any symptoms but due to exposure wanted to get tested - Related Data Home Medications Medication Instructions Recorded Confirmed pantoprazole 40 mg tablet,delayed 40 mg PO BID 07/25/17 11/21/19 release sumatriptan succinate 100 mg tablet 100 mg PO ONCE 07/25/17 11/21/19 buspirone 10 mg tablet 10 mg PO DAILY 30 Days tab 09/19/17 11/21/19 linaclotide 72 mcg capsule 72 mcg PO DAILY 30 Days cap 09/19/17 11/21/19 Cetirizine HCl 10 mg PO DAILY 03/06/19 11/21/19 Dicyclomine HCl 20 mg PO DAILY 03/06/19 11/21/19 Fluticasone Propionate 44 mcg NOSTRIL-B DAILY 03/06/19 11/21/19 [Fluticasone Hfa 44mcg Inhaler] Furosemide [Furosemide 80mg Tab] 80 mg PO BID 03/06/19 11/21/19 Levothyroxine Sodium 137 mcg PO DAILY 03/06/19 11/21/19 [Levothyroxine 137mcg (0.137mg) Tab] Previous Rx's Medication Instructions Recorded Tramadol HCl [Tramadol 50mg 50 mg PO TID PRN #90 tab 07/23/19 Tab] Hydrocod/Acet 5/325 mg [[place] 1 tab PO Q6HP PRN #10 tab 10/05/19 5/325mg tablet] Gabapentin [Neurontin 600mg 600 mg PO TID 90 Days #270 tab 02/25/20 tablet] Tramadol HCl [Tramadol 50mg 50 mg PO TID 90 Days #270 tab 02/25/20 Tab] estradiol 2 mg tablet See Rx Instructions .ROUTE 02/27/20 .COMPLEX #90 tab Allergies Allergy/AdvReac Type Severity Reaction Status Date / Time Penicillins Allergy Intermediate I-ITC
[2020-03-08 15:22] VITALS: BP 149/79; PULSE 87; RESP 19; TEMP 36.8; O2SAT 98
--- NOTE | 2020-03-08 20:38 | PC.NURSE ---
PT NOTIFIED OF POSITIVE COVID RESULT
== END 2020-03-08 15:30 | disposition home or self-care (01) ==
PROVIDERS: Emergency Provider Nurse Practitioner; PCP Family Medicine
DX: U07.1 COVID-19 (principal); I10 Essential (primary) hypertension; F41.8 Other specified anxiety disorders; K21.9 Gastro-esophageal reflux disease without esophagitis; E03.9 Hypothyroidism, unspecified; Z88.0 Allergy status to penicillin; Z88.8 Allergy status to other drugs, medicaments and biological substances; Z79.899 Other long term (current) drug therapy
CPT/HCPCS: 99202; G0463; U0003

== ENCOUNTER 2020-03-13 07:49 | Outpatient (CLI) | payer MEDICARE, MEDICAID, SELFPAY ==
[2020-03-13] VITALS (9 sets, daily range): BP systolic 109–145; BP diastolic 49–88; PULSE 73–80; RESP 16–20; TEMP 36.4–36.9; O2SAT 94–99
== END 2020-03-13 10:36 | disposition home or self-care (01) ==
PROVIDERS: PCP Family Medicine; Visit Provider Family Medicine
DX: U07.1 COVID-19 (principal)
CPT/HCPCS: 96365

== ENCOUNTER → 2020-04-04 11:08 | Outpatient (CLI) | payer MEDICARE, MEDICAID, SELFPAY ==
--- NOTE | 2020-04-04 11:17 | XR_ITS ---
PROCEDURE: XR ABDOMEN MIN 2V and 2 x-ray view chest CLINICAL INDICATION: CHECK SPINAL STIMULATER PRIOR TO MRI COMPARISON: Abdomen pelvis CT 10/05/2019 FINDINGS: Spinal stimulator remains unchanged in position compared with 10/05/[address] Implantable pulse generator is positioned in the soft tissues of the left flank. The implant leads are intact and are positioned in the posterior epidural space. There are no abandoned leads or abandoned pulse generators. IMPRESSION: Images show appropriate appearance and position of spinal stimulator, to be correlated with additional screening and patient preparation as required by assistant controller. Dictated by: Evie Sylvester MD 04/04/2020 11:53 Evie Sylvester MD in [place] 04/04/2020 11:53
--- NOTE | 2020-04-04 11:18 | XR_ITS ---
PROCEDURE: XR ABDOMEN MIN 2V and 2 x-ray view chest CLINICAL INDICATION: CHECK SPINAL STIMULATER PRIOR TO MRI COMPARISON: Abdomen pelvis CT 10/05/2019 FINDINGS: Spinal stimulator remains unchanged in position compared with 10/05/[address] Implantable pulse generator is positioned in the soft tissues of the left flank. The implant leads are intact and are positioned in the posterior epidural space. There are no abandoned leads or abandoned pulse generators. IMPRESSION: Images show appropriate appearance and position of spinal stimulator, to be correlated with additional screening and patient preparation as required by crushed stone grader. Dictated by: Evie Sylvester MD 04/04/2020 11:53 Evie Sylvester MD in [place] 04/04/2020 11:53
--- NOTE | 2020-04-04 11:51 | MR_ITS ---
PROCEDURE: MR KNEE LT WO CON CLINICAL INDICATION: CHRONIC LEFT KNEE PAIN WITH HX OF OLD TRAUMA No recent injury or trauma. COMPARISON: CR XR KNEE LT 3V from 03/03/2020 TECHNIQUE: Patient has known MRI compatible spinal stimulator. All patient preparation, equipment preparation, screening and imaging preparation was completed satisfactorily per churn drill operator guidelines and MRI safety guidelines. Multiplanar multisequence imaging was performed of the left knee without contrast. Patient tolerated the exam well. FINDINGS: There is a small joint space effusion. There is mild patellar lateralization in the position utilized for MR imaging. There is edema in the anterior soft tissues. There is thinning and irregularity of the cartilage in the patellofemoral compartment. There is no definite cartilage injury in the medial or lateral compartment. There are marginal osteophytes involving the patella and opposing femur. There are no areas of bone marrow edema Ligaments are intact. The medial collateral ligament and the lateral collateral ligament complexes are intact. The quadriceps and patellar tendons are intact and normal. Tiny ossicle at the patellar insertion of the quadriceps tendon visible on x-ray is not directly visualized by MRI. There is no medial or lateral meniscal tear. IMPRESSION: Chondromalacia and malalignment affecting the patellofemoral compartment. Small joint space effusion. Dictated by: Evie Sylvester MD 04/04/2020 18:21 Evie Sylvester MD in [place] 04/04/2020 18:21
== END ==
PROVIDERS: PCP Family Medicine; Visit Provider Nurse Practitioner Family
DX: M25.562 Pain in left knee (principal); M25.462 Effusion, left knee
CPT/HCPCS: 71046; 73721; 74019

== ENCOUNTER → 2020-04-07 08:42 | Outpatient (POV) | payer MEDICARE, MEDICAID, SELFPAY ==
[2020-04-07 08:56] VITALS: BP 140/78; PULSE 88; RESP 18; TEMP 36.4; O2SAT 98; BMI 47.4
--- NOTE | 2020-04-07 09:07 | HMH.PAINSOAP ---
[facility] Pain Management SOAP Note Subjective:: Patient is pleasant 54-year-old white female who we are treating for low back pain and lumbar radiculopathy. She is also discussing with me her legs jumping and twitching at nighttime right before she goes to sleep. We discussed potential restless leg syndrome. She rates her pain an 8 out of 10 she states it is terrible. Mostly in her low back and legs. She has a [employer] spinal cord stimulator she states she does not get much relief from it. She states that she needs continual changes. She is unhappy with the way that it is currently managing her pain she would like to have it removed. Patient had an intrathecal pain pump trial which gave her 90% relief of her symptoms. She like to move forward with an implant however we will remove the stimulator prior. She is tried and failed physical therapy, neurostimulator changes, medications, anti-inflammatories and injection therapy. Andres reviewed through [facility] [place]. ROS General: no recent weight change, no fever, no sleep disturbances Respiratory: no cough, no shortness of air, no recurring pulmonary infections Cardiovascular/Peripheral Vascular: No chest pain, No palpitations, no edema, no shortness of breath. Gastrointestinal: no new onset incontinence, normal bowel movements reported Genitourinary: no new onset incontinence Musculoskeletal: Back pain, leg pain Psychiatric: normal mood/ affect Neurological: [denies new onset weakness in extremities], [denies new onset balance issues] Objective:: Physical Exam General: Alert and oriented x3, no acute distress, pleasant and cooperative, [on room air] Lungs: Resps E/U, Symmetrical chest expansion, Eyes: PERRL Musculoskeletal: Flexion and extension of lumbar spine somewhat guarded secondary to pain, deep tendon reflexes normal, strength in upper and lower extremities [5/5], [abnormal gait noted] Neurological: speech clear, build master equal, no gross sensory deficits Assessment:: Degenerative disc disease lumbar spine lumbar radiculopathy, back pain, restless leg syndrome Plan:: We will start the patient on Requip 0.5 mg 1-2 tabs at bedtime. Patient will be set up for removal of her neurostimulator. After this she is healed we will move forward with intrathecal pain pump placement. She has been instructed to call the office if she has any issues prior to her next appointment. Dr. Canchola has reviewed this note and agrees with this plan of care. This note was dictated using voice recognition software and may contain errors or omissions [facility] History I have reviewed the patient's past medical history: Yes Medical History: Reports:: Anxiety, Depression, Gastroesophageal Reflux Disease(GERD), Hypertension Denies:: Cancer, Diabetes Mellitus Type 1, Diabetes Mellitus Type 2, Hyperlipidemia, Internal Pacemaker, Lung Disease, MRSA, Seizures *Have you ever received a pneumonia vaccine?: No *Have you received a flu vaccine this season?: Yes Other Medical History: Reports: Arthritis, Glaucoma, Hormone Therapy, Hypothyroidism, Thyroid Disease Laterality Cases: Right: Arthroscopy Knee, Bilateral: Other Other Surgeries: Yes: Cholecystectomy, Colonoscopy, EGD, Hysterectomy-Total, Other (stimulator implant). No: Pacemaker Amputation: No Fractures: Yes (LEFT WRIST) - *Social History Smoking Status: Former smoker Alcohol Intake: never Alcohol Intake Frequency:: other Substance Use Type: denies use *Occupational Status:: disabled Housing: house Household Members: spouse, other *Travel in the last 8 weeks: None - Psychiatric History Pschychiatric History:: Reports:: Anxiety, Depression Family Hx:: Cancer, Coronary Artery Disease, Diabetes, Hyperlipidemia, Hypertension, Thyroid Disorder
== END ==
PROVIDERS: PCP Family Medicine; Visit Provider Clinical Nurse Specialist Family Health
DX: M51.16 Intervertebral disc disorders with radiculopathy, lumbar region (principal); G25.81 Restless legs syndrome
CPT/HCPCS: 99212; G0463

== ENCOUNTER → 2020-04-29 09:25 | Outpatient (CLI) | payer MEDICARE, MEDICAID, SELFPAY ==
[2020-04-29 10:05] LABS: Basophils # 0.1 K/mm3 (0-0.2); Basophils % 0.6 % (0.1-2.0); Eosinophils # 0.2 K/mm3 (0.0-0.4); Eosinophils % 2.4 % (0.1-12.0); Hematocrit 41.3 % (37.0-47.0); Hemoglobin 13.1 g/dL (12.2-16.2); Lymphocytes # 2.1 K/mm3 (0.7-4.5); Lymphocytes % 22.7 % (10-50); Mean Corpuscular HGB Conc 31.7 g/dL (31.8-35.4); Mean Corpuscular Hemoglobin 28.8 pg (27.0-31.2); Mean Corpuscular Volume 90.8 fl (81-99); Mean Platelet Volume 7.4 fl (7.4-10.4); Monocytes # 0.5 K/mm3 (0.1-1.0); Monocytes % 4.9 % (1.7-9.3); Neutrophils # 6.5 K/mm3 (1.8-7.8); Neutrophils % 69.3 % (37.0-80.0); Platelet Count 439 K/mm3 (142-424); Red Blood Count 4.55 M/mm3 (4.20-5.40); Red Cell Distribution Width 16.4 % (11.5-17.5); White Blood Count 9.3 K/mm3 (4.8-10.8)
[2020-04-29 10:41] LABS: Chloride 105 mmol/L (98-107); Potassium 4.5 mmoL/L (3.5-5.1); Sodium 139 mmol/L (136-145)
[2020-04-29 10:44] LABS: Blood Urea Nitrogen 20 mg/dl (7-17); Estimated Glomerular Filt Rate 65 ml/min (>60); GFR (African American) 78 ML/MIN (>60)
[2020-04-29 10:45] LABS: Anion Gap 10.5 mEq/L (5-15); Calcium 9.4 mg/dl (8.4-10.2); Carbon Dioxide 28 mmol/L (22.0-30.0); Glucose 89 mg/dl (74-100)
[2020-04-29 10:58] LABS: Coronavirus 19 IgG Antibody Positive (Negative); Coronavirus 19 IgM Antibody Negative (Negative)
== END ==
PROVIDERS: Visit Provider Anesthesiology
DX: Z01.818 Encounter for other preprocedural examination (principal); Z20.822 Contact with and (suspected) exposure to COVID-19
CPT/HCPCS: 36415; 80048; 85025; 86328

== ENCOUNTER 2020-04-30 05:33 | Day surgery (SDC) | payer MEDICARE, MEDICAID, SELFPAY ==
[2020-04-28 15:32] VITALS: BMI 48.8
[2020-04-30] VITALS (7 sets, daily range): BP systolic 113–136; BP diastolic 64–81; PULSE 68–85; RESP 18–20; TEMP 36–39.4; O2SAT 96–99
--- NOTE | 2020-04-30 08:10 | HMH.ANESCL ---
[facility] Anesthesia Checklist - Patient Identification Patient Identification: Arm Band - Structural Data Admitted From: Home Planned Operative Procedure/s: spinal cord stimulator explant Consent for Planned Operative Procedure(s) Verified: Yes Verified Documents: Surgical Consent, History and Physical - NPO Status Verified Time NPO: 00:00 - Additional verifications Anesthesia Reactions: No Hx Blood Transfusions: No Blood Transfusion Reaction: No - Airway Assessment C-Spine Mobility Assessed: Yes (mp2) TMJ Mobility Assessed: Yes Dentition: Good Dentition - Neurological Assessment Level of Consciousness: Awake, Alert - Anesthesia Plan Anesthesia Risk discussed: Yes Anesthesia Plan: Verified ASA Class: III Anesthesia Type: MAC [facility] History I have reviewed the patient's past medical history: Yes Medical History: Reports:: Anxiety, Depression, Gastroesophageal Reflux Disease(GERD), Hypertension Denies:: Cancer, Diabetes Mellitus Type 1, Diabetes Mellitus Type 2, Hyperlipidemia, Internal Pacemaker, Lung Disease, MRSA, Seizures *Have you ever received a pneumonia vaccine?: No *Have you received a flu vaccine this season?: Yes Other Medical History: Reports: Arthritis, Glaucoma, Hormone Therapy, Hypothyroidism, Thyroid Disease. Denies: Blood Transfusion Reaction Anesthesia experience/problems:: nac Laterality Cases: Right: Arthroscopy Knee, Bilateral: Other Other Surgeries: Yes: Cholecystectomy, Colonoscopy, EGD, Hysterectomy-Total, Other (stimulator implant). No: Pacemaker Amputation: No Fractures: Yes (LEFT WRIST) - *Social History Smoking Status: Former smoker Alcohol Intake: never Alcohol Intake Frequency:: other Substance Use Type: denies use *Occupational Status:: disabled Housing: house Household Members: spouse, other *Travel in the last 8 weeks: None - Psychiatric History Pschychiatric History:: Reports:: Anxiety, Depression Family Hx:: Cancer, Coronary Artery Disease, Diabetes, Hyperlipidemia, Hypertension, Thyroid Disorder
--- NOTE | 2020-04-30 08:47 | HMH.OPNOTE ---
Date of procedure: 04/30/20 Pre-op Diagnosis:: Insufficient pain relief from pain stimulator system-patient desires removal of pain stimulator system Post-op Diagnosis:: Same Procedure performed:: Removal of pain stimulator generator and leads Surgeon:: Rolan Gold MD EMPLOYEE COUNSELOR:: Erwin Fatima, Dandy Costa, Roldan Lauren, Andreas Gipson, Other Anesthesia: MAC Estimated blood loss (mL): 5 Operative findings:: Not applicable Operative note:: The patient was placed prone on the operating table and her back and flank regions were prepped draped in sterile fashion. Once adequate local anesthesia obtained 1% Xylocaine with epinephrine and incision was made over the lead placement incision carried at the skin and subcutaneous tissue. With careful sharp dissection the fixation devices and the leads were removed from the spinal epidural space without difficulty. At this point incision was made over the stimulator generator site and with careful dissection the generator was also removed. Both incisions treated with antibiotic solution. Subcutaneous tissues closed with 2-0 Vicryl. Skin closed with stitches of 4-0 nylon. Wound VAC dressing and binder applied to the wound. The patient tolerated the procedure well and was taken to the recovery room in stable condition. Upon recovery the patient be discharged home will follow up in the clinic next week for removal of the wound VAC system in 2 weeks for removal of sutures. Bactrim DS twice daily x1 week for per protocol. Condition: stable Disposition: PACU Complications:: None
--- NOTE | 2020-04-30 09:39 | PC.NURSE ---
called in Rx for BActrim DS bid x7 days to pt's pharmacy per Dr. Gold's order.
== END 2020-04-30 09:42 | disposition home or self-care (01) ==
PROVIDERS: PCP Family Medicine; Visit Provider Surgery
DX: M51.16 Intervertebral disc disorders with radiculopathy, lumbar region (principal); Z45.49 Encounter for adjustment and management of other implanted nervous system device; I10 Essential (primary) hypertension; K21.9 Gastro-esophageal reflux disease without esophagitis; F41.9 Anxiety disorder, unspecified; F32.9 Major depressive disorder, single episode, unspecified; M19.90 Unspecified osteoarthritis, unspecified site; E03.9 Hypothyroidism, unspecified; Z87.39 Personal history of other diseases of the musculoskeletal system and connective tissue; Z83.438 Family history of other disorder of lipoprotein metabolism and other lipidemia; Z82.49 Family history of ischemic heart disease and other diseases of the circulatory system; Z80.9 Family history of malignant neoplasm, unspecified
CPT/HCPCS: 63661; 63688; 96374; J3370

== ENCOUNTER → 2020-05-08 12:41 | Outpatient (POV) | payer MEDICARE, MEDICAID, SELFPAY ==
[2020-05-08 13:08] VITALS: BP 136/71; PULSE 92; RESP 18; O2SAT 98; BMI 50.2
--- NOTE | 2020-05-08 13:27 | HMH.PAINSOAP ---
[facility] Pain Management SOAP Note Subjective:: Patient is a pleasant 54-year-old white female who presents today for follow-up after removal of her neurostimulator. Patient's stitches are in place. Incision well approximated no sign symptoms of infection. Patient rates her pain a 9 out of 10. Our long-term goal is to get an intrathecal pain pump approved for implant. She had a successful trial. ROS General: no recent weight change, no fever, no sleep disturbances Respiratory: no cough, no shortness of air, no recurring pulmonary infections Cardiovascular/Peripheral Vascular: No chest pain, No palpitations, no edema, no shortness of breath. Gastrointestinal: no new onset incontinence, normal bowel movements reported Genitourinary: no new onset incontinence Musculoskeletal: Back pain, leg pain, hip pain Psychiatric: normal mood/ affect Neurological: [denies new onset weakness in extremities], [denies new onset balance issues] Objective:: Physical Exam General: Alert and oriented x3, no acute distress, pleasant and cooperative, [on room air] Lungs: Resps E/U, Symmetrical chest expansion, Eyes: PERRL Musculoskeletal: Flexion and extension of lumbar spine somewhat guarded secondary to pain, deep tendon reflexes normal, strength in upper and lower extremities [5/5], [abnormal gait noted] Neurological: speech clear, as400 programmer equal, no gross sensory deficits Assessment:: Degenerative disc disease lumbar spine lumbar radiculopathy Plan:: We will see the patient back in 2 weeks reassess her symptoms at that time we will also remove her stitches. We will then move forward with intrathecal pain pump implant. Dr. Canchola has reviewed this note and agrees with this plan of care. This note was dictated using voice recognition software and may contain errors or omissions [facility] History I have reviewed the patient's past medical history: Yes Medical History: Reports:: Anxiety, Depression, Gastroesophageal Reflux Disease(GERD), Hypertension Denies:: Cancer, Diabetes Mellitus Type 1, Diabetes Mellitus Type 2, Hyperlipidemia, Internal Pacemaker, Lung Disease, MRSA, Seizures *Have you ever received a pneumonia vaccine?: Yes *Have you received a flu vaccine this season?: Yes Other Medical History: Reports: Arthritis, Glaucoma, Hormone Therapy, Hypothyroidism, Thyroid Disease. Denies: Blood Transfusion Reaction Laterality Cases: Right: Arthroscopy Knee, Bilateral: Other Other Surgeries: Yes: Cholecystectomy, Colonoscopy, EGD, Hysterectomy-Total, Other (stimulator implant). No: Pacemaker Amputation: No Fractures: Yes (LEFT WRIST) - *Social History Smoking Status: Former smoker Alcohol Intake: never Alcohol Intake Frequency:: other Substance Use Type: denies use *Occupational Status:: other Housing: house Household Members: spouse, other *Travel in the last 8 weeks: None - Psychiatric History Pschychiatric History:: Reports:: Anxiety, Depression Family Hx:: Cancer, Coronary Artery Disease, Diabetes, Hyperlipidemia, Hypertension, Thyroid Disorder
== END ==
PROVIDERS: PCP Family Medicine; Visit Provider Clinical Nurse Specialist Family Health
DX: M51.16 Intervertebral disc disorders with radiculopathy, lumbar region (principal); Z09 Encounter for follow-up examination after completed treatment for conditions other than malignant neoplasm
CPT/HCPCS: 99212; G0463

== ENCOUNTER → 2020-05-22 14:16 | Outpatient (POV) | payer MEDICARE, MEDICAID, SELFPAY ==
[2020-05-22 14:26] VITALS: BP 133/74; PULSE 68; RESP 18; O2SAT 98; BMI 50.2
--- NOTE | 2020-05-22 14:42 | HMH.PAINSOAP ---
[facility] Pain Management SOAP Note Subjective:: Pleasant 54-year-old white female presents today for follow-up and suture removal of her stitches. Patient had a neurostimulator removed. Patient was not getting adequate pain relief with. She rates her pain a 9.5 out of 10. Our long-term goal is to get an intrathecal pain pump approved for implant she did have a successful trial. ROS General: no recent weight change, no fever, no sleep disturbances Respiratory: no cough, no shortness of air, no recurring pulmonary infections Cardiovascular/Peripheral Vascular: No chest pain, No palpitations, no edema, no shortness of breath. Gastrointestinal: no new onset incontinence, normal bowel movements reported Genitourinary: no new onset incontinence Musculoskeletal: Back pain, leg pain Psychiatric: normal mood/ affect Neurological: [denies new onset weakness in extremities], [denies new onset balance issues] Objective:: Physical Exam General: Alert and oriented x3, no acute distress, pleasant and cooperative, [on room air] Lungs: Resps E/U, Symmetrical chest expansion, Eyes: PERRL Musculoskeletal: Flexion and extension of lumbar spine somewhat guarded secondary to pain, deep tendon reflexes normal, strength in upper and lower extremities [5/5], [abnormal gait noted] Neurological: speech clear, picking belt operator equal, no gross sensory deficits Assessment:: Degenerative disc disease lumbar spine lumbar radiculopathy, back pain Plan:: We will schedule the patient for a permanent intrathecal pain pump implant. She has been instructed to call the office prior to her next appointment if she has any issues or problems. Patient stitches were removed no sign symptoms of infection patient is well-healed. Dr. Canchola has reviewed this note and agrees with this plan of care. This note was dictated using voice recognition software and may contain errors or omissions [facility] History I have reviewed the patient's past medical history: Yes Medical History: Reports:: Anxiety, Depression, Gastroesophageal Reflux Disease(GERD), Hypertension Denies:: Cancer, Diabetes Mellitus Type 1, Diabetes Mellitus Type 2, Hyperlipidemia, Internal Pacemaker, Lung Disease, MRSA, Seizures *Have you ever received a pneumonia vaccine?: Yes *Have you received a flu vaccine this season?: Yes Other Medical History: Reports: Arthritis, Glaucoma, Hormone Therapy, Hypothyroidism, Thyroid Disease. Denies: Blood Transfusion Reaction Laterality Cases: Right: Arthroscopy Knee, Bilateral: Other Other Surgeries: Yes: Cholecystectomy, Colonoscopy, EGD, Hysterectomy-Total, Other (stimulator implant). No: Pacemaker Amputation: No Fractures: Yes (LEFT WRIST) - *Social History Smoking Status: Former smoker Alcohol Intake: never Alcohol Intake Frequency:: other Substance Use Type: denies use *Occupational Status:: disabled Housing: house Household Members: spouse, other *Travel in the last 8 weeks: None - Psychiatric History Pschychiatric History:: Reports:: Anxiety, Depression Family Hx:: Cancer, Coronary Artery Disease, Diabetes, Hyperlipidemia, Hypertension, Thyroid Disorder
== END ==
PROVIDERS: PCP Family Medicine; Visit Provider Clinical Nurse Specialist Family Health
DX: M51.16 Intervertebral disc disorders with radiculopathy, lumbar region (principal)
CPT/HCPCS: 99212; G0463

== ENCOUNTER → 2020-05-23 09:08 | Outpatient (CLI) | payer MEDICARE, MEDICAID, SELFPAY ==
--- NOTE | 2020-05-23 09:17 | XR_ITS ---
PROCEDURE: XR KNEE LT 4V CLINICAL INDICATION: LT knee pain COMPARISON: MR MR KNEE LT WO CON from 04/04/2020 FINDINGS: There is moderate spurring of the medial and lateral tibial spines. There is no significant joint space narrowing. There is mild spurring of the lateral tibial plateau. There is prominent narrowing of the patellofemoral space on the lateral projection and slight lateral subluxation of patella on the AP view. There is minimal spurring of the superior lateral border of the patella. There is no definite effusion noted. There is no definite loose body. Other findings:None. IMPRESSION: Prominent narrowing of the patellofemoral space and mild spurring of the tibial spines Dictated by: Dr. Rogelio Hughes MD 05/23/2020 11:25 Dr. Rogelio Hughes MD in [place] 05/23/2020 11:25
== END ==
PROVIDERS: PCP Family Medicine; Visit Provider Orthopaedic Surgery
DX: M25.562 Pain in left knee (principal)
CPT/HCPCS: 73564

== ENCOUNTER → 2020-06-30 11:17 | Outpatient (CLI) | payer MEDICARE, SELFPAY ==
[2020-06-30 12:27] LABS: Basophils # 0.1 K/mm3 (0-0.2); Basophils % 0.6 % (0.1-2.0); Eosinophils # 0.2 K/mm3 (0.0-0.4); Eosinophils % 1.2 % (0.1-12.0); Hematocrit 44.8 % (37.0-47.0); Hemoglobin 13.6 g/dL (12.2-16.2); Lymphocytes # 1.7 K/mm3 (0.7-4.5); Lymphocytes % 13.7 % (10-50); Mean Corpuscular HGB Conc 30.4 g/dL (31.8-35.4); Mean Corpuscular Hemoglobin 28.4 pg (27.0-31.2); Mean Corpuscular Volume 93.4 fl (81-99); Mean Platelet Volume 7.1 fl (7.4-10.4); Monocytes # 0.7 K/mm3 (0.1-1.0); Monocytes % 5.3 % (1.7-9.3); Neutrophils # 9.9 K/mm3 (1.8-7.8); Neutrophils % 79.2 % (37.0-80.0); Platelet Count 458 K/mm3 (142-424); Red Blood Count 4.79 M/mm3 (4.20-5.40); White Blood Count 12.5 K/mm3 (4.8-10.8)
[2020-06-30 12:30] LABS: Benzodiazepines Screen,Urine Negative ng/ml (<200)
[2020-06-30 12:31] LABS: Amphetamine/Metha Screen,Urine Negative ng/ml (<1000); Barbiturates Screen,Urine Negative ng/ml (<200)
[2020-06-30 12:32] LABS: Anion Gap 13.2 mEq/L (5-15); Blood Urea Nitrogen 22 mg/dl (7-17); Calcium 9.7 mg/dl (8.4-10.2); Cannabinoid Screen,Urine Negative ng/ml (<50); Carbon Dioxide 26 mmol/L (22.0-30.0); Chloride 105 mmol/L (98-107); Estimated Glomerular Filt Rate 65 ml/min (>60); GFR (African American) 78 ML/MIN (>60); Glucose 98 mg/dl (74-100); Potassium 4.2 mmoL/L (3.5-5.1); Sodium 140 mmol/L (136-145)
[2020-06-30 12:33] LABS: Cocaine Screen,Urine Negative ng/ml (<300); Methadone Screen,Urine Negative ng/ml (<300)
[2020-06-30 12:34] LABS: Opiate Screen,Urine Negative ng/ml (<300)
[2020-06-30 12:35] LABS: Phencyclidine Screen,Urine Negative ng/ml (<25)
== END ==
PROVIDERS: Visit Provider Anesthesiology
DX: Z01.812 Encounter for preprocedural laboratory examination (principal); Z20.822 Contact with and (suspected) exposure to COVID-19; M51.36 Other intervertebral disc degeneration, lumbar region
CPT/HCPCS: 36415; 80048; 80305; 85025; U0003

== ENCOUNTER 2020-07-02 06:39 | Day surgery (SDC) | payer MEDICARE, MEDICAID, SELFPAY ==
[2020-06-25 13:18] VITALS: BMI 49.5
[2020-07-02 07:06] VITALS: BP 121/70; PULSE 67; RESP 18; TEMP 36.1; O2SAT 97
--- NOTE | 2020-07-02 07:25 | HMH.ANESCL ---
[facility] Anesthesia Checklist - Patient Identification Patient Identification: Arm Band - Structural Data Admitted From: Home Planned Operative Procedure/s: Intrathecal Pain Pump Catheter + Generator Placement Consent for Planned Operative Procedure(s) Verified: Yes Verified Documents: Surgical Consent, History and Physical - NPO Status Verified Time NPO: 00:00 - Additional verifications Anesthesia Reactions: No Hx Blood Transfusions: No Blood Transfusion Reaction: No - Airway Assessment C-Spine Mobility Assessed: Yes (mp3) TMJ Mobility Assessed: Yes Dentition: Good Dentition - Neurological Assessment Level of Consciousness: Awake, Alert - Anesthesia Plan Anesthesia Risk discussed: Yes Anesthesia Plan: Verified ASA Class: III Anesthesia Type: MAC [facility] History I have reviewed the patient's past medical history: Yes Medical History: Reports:: Anxiety, Asthma, Depression, Gastroesophageal Reflux Disease(GERD), Hypertension Denies:: Cancer, Diabetes Mellitus Type 1, Diabetes Mellitus Type 2, Hyperlipidemia, Internal Pacemaker, Lung Disease, MRSA, Seizures *Have you ever received a pneumonia vaccine?: No *Have you received a flu vaccine this season?: Yes Other Medical History: Reports: Arthritis, Glaucoma, Hormone Therapy, Hypothyroidism, Thyroid Disease. Denies: Blood Transfusion Reaction Anesthesia experience/problems:: nac Laterality Cases: Right: Arthroscopy Knee, Bilateral: Other Other Surgeries: Yes: Cholecystectomy, Colonoscopy, EGD, Hysterectomy-Total, Other. No: Pacemaker Amputation: No Fractures: Yes (LEFT WRIST) - *Social History Smoking Status: Former smoker Alcohol Intake: never Alcohol Intake Frequency:: other Substance Use Type: denies use *Occupational Status:: disabled Housing: house Household Members: spouse, other *Travel in the last 8 weeks: None - Psychiatric History Pschychiatric History:: Reports:: Anxiety, Depression Family Hx:: No significant family history
--- NOTE | 2020-07-02 09:34 | HMH.OPNOTE ---
Date of procedure: 07/02/20 Pre-op Diagnosis:: Degenerative disc disease of the lumbar spine with radiculopathy Post-op Diagnosis:: Same Procedure performed:: Placement of pain pump generator Surgeon:: Rolan Gold MD DRAWING KILN OPERATOR:: Erwin Fatima, Dandy Costa, Roldan Lauren, Andreas Gipson, Other Anesthesia: MAC Estimated blood loss (mL): 5 Operative findings:: Not applicable Operative note:: Once adequate IV sedation was obtained via anesthesia the patient was placed prone on the operating table and her back and flank regions were prepped and draped in sterile fashion. Paraspinal incision was made by Dr. Vaughn which an intrathecal catheter was passed into the intrathecal space to the area desired by Dr. Reina. The catheter was fixed underlying tissues with 2-0 Prolene and fixation devices.. At this point a right flank incision was made for placement of the reservoir.. Utilizing a tunneling device the catheter was passed from the paraspinal incision to the pocket incision. Catheter then connected to the generator which was placed in the pocket. CSF was aspirated from the generator noting patency of the system. At this point both pockets irrigated with antibiotic solution. Subcutaneous tissues closed with 2-0 Vicryl and skin closed with stitches of 4-0 nylon. Wound VAC dressings and a binder applied to the wound. The patient tolerated procedure well and was taken to the recovery room in stable condition. Upon recovery the patient will be discharged home will follow-up in 1 week for removal of the wound VAC system in 2 weeks for removal of sutures. Antibiotic x1 week per protocol. Condition: stable Disposition: PACU Complications:: None
[2020-07-02 09:45] VITALS: BP 112/52; PULSE 76; RESP 16; TEMP 36.3; O2SAT 93
[2020-07-02 10:00] VITALS: BP 107/63; PULSE 74; RESP 16; TEMP 36.3; O2SAT 93
[2020-07-02 10:15] VITALS: BP 109/54; PULSE 71; RESP 18; TEMP 36.3; O2SAT 97
--- NOTE | 2020-07-02 10:22 | HMH.OPNOTE ---
Date of procedure: 07/02/20 Pre-op Diagnosis:: Degenerative disc disease of lumbar spine with lumbar radiculopathy symptoms Post-op Diagnosis:: Same Procedure performed:: Intrathecal catheter placement with tunneling for permanent intrathecal pain pump Surgeon:: Nilson Canchola MD TRUCK SALES REPRESENTATIVE:: Roldan Lauren Anesthesia: GETA Estimated blood loss (mL): 5 Clinical Note:: This patient is a pleasant 54-year-old white female who we are treating for low back pain with lumbar radiculopathy symptoms. She has failed all previous conservative treatments including injections, oral medications, physical therapy and spinal cord stimulation. She is not a candidate for surgery. She does have increasing back pain. She had a successful psychological evaluation. She had a successful intrathecal pump trial. She was 80 to 90% better and much more functional. She presents for permanent placement of intrathecal pain pump today. Operative findings:: None Operative note:: Informed consent was obtained and the risk and benefits of the procedure were explained to the patient. Patient was taken the operating room placed prone on the procedure table. She was prepped and draped in sterile fashion. C-arm fluoroscopy was used to view the lumbar spine. The skin and subcutaneous tissues adjacent to the L4-5 L5-S1 interspace were anesthetized using lidocaine. I made an incision and dissected down to the lumbar paraspinous fascia. A 17-gauge spinal needle was inserted and advanced into the L4-L5 interspace until clear CSF was obtained. After this intrathecal catheter was inserted and advanced very easily to the T12-L1 vertebral bodies. The stylette of the catheter and the needle were withdrawn. The catheter was secured to the fascia with anchor devices and 2-0 Prolene. I tunneled the catheter to the pump pocket created by Dr. Gold. I had previously prepared the pump with 20 mL of intrathecal Dilaudid 1 mg/mL. The pump was attached to the catheter placed in the pocket. We were able to freely withdraw clear CSF through the side-port. Both incisions were irrigated with bacitracin solution. Both incisions were then closed with 2-0 Vicryl followed by 4-0 nylon. A wound VAC was placed over both incisions. The patient was placed in an abdominal binder taken recovery in stable condition. Patient tolerated the procedure well with no complications. The patient was programmed by the dairy supplies sales representative and started at 0.1 mg/day of intrathecal Dilaudid. Patient was discharged home neurologically intact with good relief of pain symptoms. Plan and disposition: We will follow-up with this patient in 1 week for wound check and readjustment of her pump. We will follow-up in 2 weeks for suture removal. If she has any problems or questions she is to call us back in the pain clinic. Condition: stable Disposition: PACU Complications:: None
[2020-07-02 10:30] VITALS: BP 131/84; PULSE 69; RESP 18; TEMP 36.3; O2SAT 99
[2020-07-02 10:50] VITALS: BP 129/69; PULSE 66; RESP 18; TEMP 36.3; O2SAT 100
== END 2020-07-02 10:50 | disposition home or self-care (01) ==
LOC: OR 06:40
PROVIDERS: PCP Family Medicine; Visit Provider Anesthesiology
DX: M51.16 Intervertebral disc disorders with radiculopathy, lumbar region (principal); F41.9 Anxiety disorder, unspecified; J45.909 Unspecified asthma, uncomplicated; F32.9 Major depressive disorder, single episode, unspecified; K21.9 Gastro-esophageal reflux disease without esophagitis; I10 Essential (primary) hypertension; M19.90 Unspecified osteoarthritis, unspecified site; E03.9 Hypothyroidism, unspecified; Z88.0 Allergy status to penicillin; Z88.8 Allergy status to other drugs, medicaments and biological substances; Z79.899 Other long term (current) drug therapy; Z79.890 Hormone replacement therapy
CPT/HCPCS: 62350; 62362; 96374; C1755; C1772; J2704; J3370

== ENCOUNTER → 2020-07-10 08:22 | Outpatient (POV) | payer MEDICARE, MEDICAID, SELFPAY ==
[2020-07-10 08:37] VITALS: BP 124/82; PULSE 80; RESP 18; O2SAT 96; BMI 55.3
--- NOTE | 2020-07-10 09:37 | HMH.PAINSOAP ---
[facility] Pain Management SOAP Note Subjective:: Patient is a 54-year-old white female who presents today for follow-up. She is being treated for degenerative disc disease lumbar spine with lumbar radiculopathy symptoms. She recently underwent intrathecal pain pump implant. She rates her pain a 0 out of 10 today. She is doing well overall. She does report that she did remove the wound VAC herself 3 days postoperative. She says that she was having pain with the tape. She does have some blistering noted around the outline of the tape. She is having some pruritus around the area and is taking [id number] Benadryl. Otherwise, she says she is doing well with her dose. She denies any side effects of the medication. The patient is currently on Dilaudid at 0.1 mg/day. The patient's concentration is Dilaudid at 1 mg/mL. Review of Systems General: No recent weight changes, no fever, no sleep disturbances Respiratory: No cough, no shortness of air, no recurring pulmonary infections Cardiovascular/peripheral vascular: No chest pain, no palpitations, no edema, no shortness of breath Gastrointestinal: No new onset incontinence, normal bowel movements reported Genitourinary: No new onset incontinence Musculoskeletal: No pain at this time Psychiatric: Normal mood/affect Neurological: [Denies weakness in extremities], [denies balance issues] Objective:: Physical exam General: Alert and oriented x3, no acute distress, pleasant and cooperative, [on room air] Lungs: Respirations even and unlabored, symmetrical chest expansion Eyes: PERRL Musculoskeletal: Flexion and extension of [] spine somewhat non-guarded, deep tendon reflexes normal, strength in upper and lower extremities [5/5], normal gait noted Neurological: Speech clear, mud mixer equal, no gross sensory deficit Assessment:: Degenerative disc disease lumbar spine with lumbar radiculopathy symptoms Plan:: Overall, the patient is doing well. Her incision is well approximated, no redness, no drainage noted to the site. She does have some blistering noted around the area where the Prevena wound VAC was placed. She did remove the wound VAC herself 3 days postoperative. We will plan to follow-up with the patient in 2 weeks for suture removal. She has been instructed to contact clinic if she has any concerns before next appointment. Dr. Canchola has reviewed this note and agrees with this plan of care. This note was dictated using voice recognition software and make contain errors or omissions. [facility] History I have reviewed the patient's past medical history: Yes Medical History: Reports:: Anxiety, Asthma, Depression, Gastroesophageal Reflux Disease(GERD), Hypertension Denies:: Cancer, Diabetes Mellitus Type 1, Diabetes Mellitus Type 2, Hyperlipidemia, Internal Pacemaker, Lung Disease, MRSA, Seizures *Have you ever received a pneumonia vaccine?: No *Have you received a flu vaccine this season?: Yes Other Medical History: Reports: Arthritis, Glaucoma, Hormone Therapy, Hypothyroidism, Thyroid Disease. Denies: Blood Transfusion Reaction Laterality Cases: Right: Arthroscopy Knee, Bilateral: Other Other Surgeries: Yes: Cholecystectomy, Colonoscopy, EGD, Hysterectomy-Total, Other. No: Pacemaker Amputation: No Fractures: Yes (LEFT WRIST) - *Social History Smoking Status: Former smoker Alcohol Intake: never Alcohol Intake Frequency:: other Substance Use Type: denies use *Occupational Status:: unemployed Housing: house Household Members: spouse, other *Travel in the last 8 weeks: None - Psychiatric History Pschychiatric History:: Reports:: Anxiety, Depression Family Hx:: No significant family history
== END ==
PROVIDERS: PCP Family Medicine; Visit Provider Clinical Nurse Specialist Family Health
DX: M51.16 Intervertebral disc disorders with radiculopathy, lumbar region (principal)
CPT/HCPCS: 99212; G0463

== ENCOUNTER → 2020-07-24 08:41 | Outpatient (POV) | payer MEDICARE, MEDICAID, SELFPAY ==
[2020-07-24 09:08] VITALS: BP 148/75; PULSE 91; RESP 18; O2SAT 97; BMI 51.5
--- NOTE | 2020-07-24 09:45 | HMH.PMPROC ---
- Procedure Date: 07/24/20 Time: 09:45 Anesthesiologist:: Beverly Garrett APRN Complications:: None Pre-procedure Diagnosis:: Degenerative disc disease lumbar spine with lumbar radiculopathy symptoms Post-procedure Diagnosis:: Same Indications for Procedure:: Patient is a pleasant 54-year-old white female who presents today for intrathecal pain pump adjustment. Pain is a 9 out of 10. She says that she is having worsening pain in her low back area. She is also reporting to have some lower extremity swelling. She says that she does feel the pump is helping but she is having worsening pain. Patient says her goal is to stop using tramadol and muscle relaxers due to increased weight gain. She says that her goal is to be more active with intrathecal pump. She is currently on Dilaudid at 0.1 mg/day. She does have 2-3+ pitting edema in her lower extremities, however, this is a history for the patient. She does take medication for lower extremity edema. I have advised her to pay close attention to the edema over the next few days after an increase in her intrathecal pump. She also needs her PTC set up today. She does need her sutures removed today as well. She is 3 weeks postoperative. Physical exam General: Alert and oriented x3, no acute distress, pleasant and cooperative, [on room air] Lungs: Respirations even and unlabored, symmetrical chest expansion Eyes: PERRL Musculoskeletal: Flexion and extension of lumbar spine somewhat guarded secondary to pain, deep tendon reflexes normal, strength in upper and lower extremities [5/5], [abnormal gait noted] Neurological: Speech clear, yarn polishing machine operator equal, no gross sensory deficit Procedure Details:: Informed consent was obtained and the risk and benefits of the procedure were explained to the patient. Patient was taken to the procedure room where noninvasive monitoring was placed including noninvasive blood pressure cuff and pulse oximeter. Patient's pump was interrogated and was reprogrammed to Dilaudid at 0.13 mg/day. PTC started at 0.013 mg up to 4 times daily.. The patient tolerated the procedure well with no complications. Plan and Disposition:: We will see the patient back in 1 week to evaluate her edema and reassess her symptoms to see if the increase is given her relief. Patient has been instructed to contact the clinic with any concerns before the next appointment. Dr. Bux has reviewed this note and agrees with this plan of care. This note was dictated using voice recognition software and make contain errors or omissions.
== END ==
PROVIDERS: PCP Family Medicine; Visit Provider Clinical Nurse Specialist Family Health
DX: M51.16 Intervertebral disc disorders with radiculopathy, lumbar region (principal); Z45.1 Encounter for adjustment and management of infusion pump; E66.9 Obesity, unspecified; Z68.43 Body mass index [BMI] 50.0-59.9, adult; Z88.0 Allergy status to penicillin; Z88.8 Allergy status to other drugs, medicaments and biological substances
CPT/HCPCS: 62368; 99212; G0463

== ENCOUNTER → 2020-07-31 09:11 | Outpatient (POV) | payer MEDICARE, MEDICAID, SELFPAY ==
--- NOTE | 2020-07-31 09:59 | HMH.PMPROC ---
- Procedure Date: 07/31/20 Time: 09:59 Anesthesiologist:: Beverly Garrett APRN Complications:: None Pre-procedure Diagnosis:: Degenerative disc disease lumbar spine with lumbar radiculopathy symptoms Post-procedure Diagnosis:: Same Indications for Procedure:: Patient is a 54-year-old white female who presents today for intrathecal pain pump adjustment. She has been treated for degenerative disc disease lumbar spine with lumbar radiculopathy symptoms. Her pain is an 8 out of 10 today. Patient says that she is following up with her primary care provider regarding the edema in her bilateral lower extremities and is having some difficulty with urination at night. She has had difficulty with urination prior to the pump and has been on Flomax for many years. She also says that she was having severe edema and weight gain prior to having the pump implanted. She says that for a week after her increase with her intrathecal therapy, she got excellent relief, however, her pain did return a week later. She says her pain is worse when she is standing and with walking. She gets relief with sitting. She is currently on Dilaudid at 0.12 mg/day. We will give her a bolus while she is in the clinic to see if she gets relief. [facility] #[id number] has been reviewed and is appropriate. Drug screens have been appropriate. Physical exam General: Alert and oriented x3, no acute distress, pleasant and cooperative, [on room air] Lungs: Respirations even and unlabored, symmetrical chest expansion Eyes: PERRL Musculoskeletal: Flexion and extension of lumbar spine somewhat guarded secondary to pain, deep tendon reflexes normal, strength in upper and lower extremities [5/5], [abnormal gait noted] Neurological: Speech clear, wood furniture assembler equal, no gross sensory deficit Procedure Details:: Informed consent was obtained and the risk and benefits of the procedure were explained to the patient. Patient was taken to the procedure room where noninvasive monitoring was placed including noninvasive blood pressure cuff and pulse oximeter. Patient's pump was interrogated and was reprogrammed to Dilaudid at 0.15 mg/day. PTC increased to 0.015 mg up to 6 times daily. The patient tolerated the procedure well with no complications. Plan and Disposition:: I have advised the patient to use caution with her boluses due to an increase in her daily dose. She is in agreement. She was increased with her daily dose of Dilaudid at 0.15 mg/day and PTC was increased to 0.015 mg up to 5 times daily. We will see her back at her next intrathecal refill unless she has any issues before then. Patient has been instructed to contact the clinic with any concerns before the next appointment. Dr. Canchola has reviewed this note and agrees with this plan of care. This note was dictated using voice recognition software and make contain errors or omissions. Risks and benefits of the medication have been explained in detail to the patient. The patient has been advised to consult with his/her primary care provider and pharmacist regarding drug-drug interaction of medications currently prescribed.
[2020-07-31 10:04] VITALS: BP 182/99; PULSE 83; RESP 95; O2SAT 98; BMI 52.2
== END ==
PROVIDERS: PCP Family Medicine; Visit Provider Clinical Nurse Specialist Family Health
DX: M51.16 Intervertebral disc disorders with radiculopathy, lumbar region (principal); Z45.1 Encounter for adjustment and management of infusion pump
CPT/HCPCS: 62368

== ENCOUNTER → 2020-08-06 12:47 | Outpatient (CLI) | payer MEDICARE, MEDICAID, SELFPAY ==
--- NOTE | 2020-08-06 | CA_ITS ---
APPROVED REPORT EXAM: Comprehensive 2D, Doppler, and color-flow Echocardiogram General Purchasing Agent: Gia Fisher RT(R) Ht: 5 ft 11 in Wt: 360lbs BSA: 2.71 BP: 136/67 mmHg Indications: COPD, SOB, edema, GERD, obesity 2D Dimensions LVOT 1.89 cm (M/F) 1.5-2.5 LVEF (Conklin's) 41.60 % F: 54 - 74 LV Volume 130.90 mL F: 46 - 106 LV Volume Index 48.48 mL/m2 F: 29 - 61 LA Volume 57.00 mL LA Volume Index 21.11 mL/m2 (M/F) 16-34 M-Mode Dimensions RVDd 2.41 cm (0.9-2.6) LA Diam 3.51 cm (1.9-4.0) LVDd 4.90 cm (3.5-5.7) Ao Diam 2.26 cm (2.0-3.7) LVDs 3.65 cm (3.5-5.7) IVSd 0.88 cm (0.6-1.1) PWd 0.84 cm (0.6-1.1) EF (Teich) 50.10% FS 25.50% EDV (Teich) 112.80 mL ESV (Teich) 56.30 mL LV Diastology E Decel Time 253.00 (160-240 msec) E/A Ratio 1.0 MED E' 7.80 (< 7 cm/sec) E'/MED E' Ratio 11.45 (>14) LAT E' 9.60 (<10 cm/sec) E/LAT E' Ratio 9.30 (>14) Mitral Valve MV E Max Jairon. 89.00 (40-130 cm/s) MV A Velocity 87.00 (40-130 cm/s) E/A Ratio 1.03 MV Decel. Time 253.00 (160-240 ms) MV PHT 74.00 ms Left Ventricle Left atrium is mildly enlarged, left ventricle is normal size, mild concentric left ventricular hypertrophy, visually estimated ejection fraction 55% with no regional wall motion abnormality, diastolic parameters are inconclusive. Right Ventricle Right atrium and right ventricle qualitatively mildly enlarged with normal contractility. Aortic Valve Aortic valve is minimally thickened and fibrosed, there is no aortic stenosis or aortic insufficiency. Mitral Valve Mitral valve is grossly normal, there is trace mitral regurgitation. Tricuspid Valve Tricuspid grossly normal, there is trace tricuspid regurgitation, tricuspid rotation jet velocity is inadequate for calculation of the right ventricular systolic pressure. Pulmonic Valve Pulmonic valve is poorly visualized. Great Vessels Aortic root is normal size. Pericardium No significant pericardial effusion noted. Conclusion 1. Mild biatrial normal, normal left ventricular size, mild concentric left ventricular hypertrophy, visually estimated ejection fraction 55% with no regional wall motion abnormality, diastolic parameters are inconclusive. 2. Mildly enlarged right ventricle with normal contractility. 3. Trace mitral and tricuspid regurgitation. 4. No significant pericardial effusion noted. Electronically signed by : Bar Alexis, 08/07/2020 16:07:16
== END ==
PROVIDERS: PCP Family Medicine; Visit Provider Family Medicine
DX: I10 Essential (primary) hypertension (principal); R60.0 Localized edema; R60.9 Edema, unspecified; R06.01 Orthopnea; E66.01 Morbid (severe) obesity due to excess calories; Z68.43 Body mass index [BMI] 50.0-59.9, adult
CPT/HCPCS: 93306

== ENCOUNTER → 2020-08-07 13:04 | Outpatient (CLI) | payer MEDICARE, MEDICAID, SELFPAY | PROVIDERS: PCP Family Medicine; Visit Provider Family Medicine | DX: R40.0 Somnolence; R06.83 Snoring; E66.9 Obesity, unspecified; Z68.43 Body mass index [BMI] 50.0-59.9, adult; G47.33 Obstructive sleep apnea (adult) (pediatric) | CPT/HCPCS: G0399 ==

== ENCOUNTER → 2020-08-15 13:28 | Outpatient (POV) | payer MEDICARE, MEDICAID, SELFPAY ==
[2020-08-15 13:38] VITALS: BP 140/67; PULSE 89; RESP 20; O2SAT 97; BMI 54.2
--- NOTE | 2020-08-15 13:55 | HMH.PMPROC ---
- Procedure Date: 08/15/20 Time: 13:55 Anesthesiologist:: Trixie Rollins MD Complications:: None Pre-procedure Diagnosis:: Degenerative disc disease of the lumbar spine, lumbar radiculopathy Post-procedure Diagnosis:: Same Indications for Procedure:: This patient is a very pleasant 54-year-old white female who presents today with chronic low back pain radiating into her legs and feet related to the above diagnosis. She has an intrathecal pump with Dilaudid and she will ports that overall it is managing her pain well except she has been having worsening low back pain recently. She reports the pain is worse with bending and twisting. She has previously undergone lumbar facet joint/medial branch block injections in the past with minimal pain relief. The plan for today is for pump reprogramming and analysis and increasing the continuous flow by 20%. She is currently on intrathecal Dilaudid 1 mg/mL with constant flow and PTC with 0.015 mg boluses, with 6 boluses per day, with a 4-hour lockout, with a total max daily dose of 0.2381 mg/day. A daily dose of we will keep the PTC bolusing as is, without any changes. Procedure Details:: Analysis and reprogramming of intrathecal Dilaudid pain pump Informed consent was obtained. The risk and benefits of the procedure were explained to the patient. Patient was taken to the procedure room. The pump was interrogated. Intrathecal dilaudid infusion] was increased by [20]% to [0.18] mg/day. Make no changes to the PTC boluses. She is currently on intrathecal Dilaudid 1 mg/mL with constant flow and PTC with 0.015 mg boluses, with 6 boluses per day, with a 4-hour lockout, with a male total max daily dose of 0.2678 mg/day. Patient tolerated the procedure well with no complications. Plan and Disposition:: We will follow-up with this patient in 2 weeks. Will reevaluate pain symptoms at that time and make any further adjustments to her pump dosing at that time if needed.
== END ==
PROVIDERS: PCP Family Medicine; Visit Provider Anesthesiology Pain Medicine
DX: M51.16 Intervertebral disc disorders with radiculopathy, lumbar region (principal); Z45.1 Encounter for adjustment and management of infusion pump; E66.9 Obesity, unspecified; Z68.43 Body mass index [BMI] 50.0-59.9, adult
CPT/HCPCS: 62368

== ENCOUNTER → 2020-09-01 08:19 | Outpatient (POV) | payer MEDICARE, MEDICAID, SELFPAY ==
[2020-09-01 08:39] VITALS: BP 138/58; PULSE 75; RESP 18; O2SAT 95; BMI 52.5
--- NOTE | 2020-09-01 09:15 | P.PCN_ITS ---
- Procedure Date: 09/01/20 Time: 09:15 Anesthesiologist:: Beverly Garrett APRN Complications:: None Pre-procedure Diagnosis:: Degenerative disc disease lumbar spine with lumbar radiculopathy symptoms Post-procedure Diagnosis:: Same Indications for Procedure:: Patient is a pleasant 54-year-old white female who presents today for intrathecal pain pump refill and reprogram. She is being treated for degenerative disc disease lumbar spine with lumbar radiculopathy symptoms. Patient's pain is primarily in her low back today. She does have an intrathecal pain pump for which she would like increase today. She is currently on Dilaudid at 0.18 mg/day. She denies any side effects. We will increase her today to see if she gets relief. Her Andres and drug screens are appropriate. Anders #[id number]. Morphine equivalent is 0. Physical exam General: Alert and oriented x3, no acute distress, pleasant and cooperative, [on room air] Lungs: Respirations even and unlabored, symmetrical chest expansion Eyes: PERRL Musculoskeletal: Flexion and extension of [] lumbar spine somewhat guarded secondary to pain, deep tendon reflexes normal, strength in upper and lower extremities [5/5], [abnormal gait noted] Neurological: Speech clear, secretarial stenographer equal, no gross sensory deficit Procedure Details:: Informed consent was obtained and the risk and benefits of the procedure were explained to the patient. Patient was taken to the procedure room where noninvasive monitoring was placed including noninvasive blood pressure cuff and pulse oximeter. Patient's pump was interrogated and was reprogrammed to Dilaudid at 0.21 mg/day. The patient tolerated the procedure well with no complications. Plan and Disposition:: We will see the patient back at her next intrathecal refill. She has been instructed to contact clinic if she has any concerns for next appointment. Patient has been instructed to contact the clinic with any concerns before the next appointment. Dr. Canchola has reviewed this note and agrees with this plan of care. This note was dictated using voice recognition software and make contain errors or omissions.
== END ==
PROVIDERS: PCP Family Medicine; Visit Provider Clinical Nurse Specialist Family Health
DX: M51.16 Intervertebral disc disorders with radiculopathy, lumbar region (principal); Z45.1 Encounter for adjustment and management of infusion pump
CPT/HCPCS: 62368

== ENCOUNTER → 2020-09-04 07:44 | Outpatient (CLI) | payer MEDICARE, MEDICAID, SELFPAY ==
--- NOTE | 2020-09-04 07:51 | CA_ITS ---
APPROVED REPORT EXAM: Comprehensive 2D, Doppler, and color-flow Echocardiogram Inspector Coated Fabrics: Tamar Santana RVT Ht: 5 ft 11 in Wt: 389lbs BSA: 2.80 BP: 167/77 mmHg Indications: CP,EDEMA,OBESITY,BRAULIO,HTN,EX SMOKER TDS-BEST EXAM POSSIBLE Stress Test Details HR Max Heart Rate (APMHR): 164.045233 bpm Target HR (85% APMHR): 139.884579 bpm BP ECG Conclusion 1. Patient exercised on Jameson protocol and achieved only 2.3 METs of workload on treadmill, test was stopped due to shortness of breath and patient was unable to walk on treadmill. 2. Normal left ventricular systolic function at rest, with exercise endocardial surfaces are very poorly visualized, all the segments of the myocardium are not well seen. The echo portion of the exercise stress echo is nondiagnostic due to poor visualization of the endocardial surfaces. 3. Repeat study with myocardial perfusion imaging is recommended for further evaluation. Electronically signed by : Bar Alexis, 09/04/2020 12:52:25
--- NOTE | 2020-09-04 09:13 | CA_ITS ---
APPROVED REPORT Exam: Exercise Treadmill Technologist: Sanjuana Carias, Ht: 5 ft 11 in Wt: 389 lbs BSA: 2.80 m2 HR: 74 bpm BP: 144/71 mmHg Medical History Medications: Lisinopril,,,,, Levothyroxine,,,,, Gabapentin,,,,, Pantoprazole,,,,, Buspirone,,,,, Montelukast,,,,, Estradilol,,,,, CetIRIZINE,,,,, HydroMORPHONE,,,,, LiNACLOTIDE,,,,, Furosemide,,,,, RaPinirole,,,,, Stress Test Details Test: Modified Jameson HR Resting HR: 80 bpm Max Heart Rate (APMHR): 164.789957 bpm Max HR Achieved: 146 bpm Target HR (85% APMHR): 139.479918 bpm % of APMHR: 89.02 Recovery HR: 80 bpm BP Resting BP: 155/82 mmHg Max BP: 155/82 mmHg Recovery BP: 149.0/61.0 mmHg ECG Resting ECG: NSR, low voltage QRS, cannot R/O old inferior AR Clinical Exercise duration: 03:05 min Highest Stage Achieved: Exercise capacity: 2.3 METs Stress ECG Conclusion Walked 2:05 on Modified Jameson Protocol. Stopped due to SOA. Apr HR: 142 % of PM: 87% Max BP: 155/82 MET's: 2.3 Test stopped due to: SOA, Fatigue Symptoms: Dyspnea, back pain. No CP. Arrhythmais/Ectopy: Rare PAC. ST-T Changes: Normal ST response to exercise. Conclusion: Normal GXT--very poor exercise tolerance. Rest and stress Echo images reported separately. Electronically signed by : Bar Alexis, 09/04/2020 12:49:35
[2020-09-04 10:08] LABS: Anion Gap 12.3 mEq/L (5-15); Blood Urea Nitrogen 20 mg/dl (7-17); Carbon Dioxide 27 mmol/L (22.0-30.0); Chloride 104 mmol/L (98-107); Estimated Glomerular Filt Rate 74 ml/min (>60); GFR (African American) 90 ML/MIN (>60); Glucose 87 mg/dl (74-100); Potassium 4.3 mmoL/L (3.5-5.1); Sodium 139 mmol/L (136-145)
== END ==
PROVIDERS: PCP Family Medicine; Visit Provider Internal Medicine Cardiovascular Disease
DX: R07.9 Chest pain, unspecified (principal)
CPT/HCPCS: 36415; 80048; 93017; 93350

== ENCOUNTER → 2020-09-04 08:41 | Outpatient (CLI) | payer MEDICARE, MEDICAID, SELFPAY | PROVIDERS: Visit Provider Internal Medicine Cardiovascular Disease | DX: R07.89 Other chest pain (principal); R06.00 Dyspnea, unspecified; I10 Essential (primary) hypertension; R60.9 Edema, unspecified; Z87.891 Personal history of nicotine dependence; E66.01 Morbid (severe) obesity due to excess calories; Z68.43 Body mass index [BMI] 50.0-59.9, adult | CPT/HCPCS: 36415; 80048; 93017; 93350 ==

== ENCOUNTER → 2020-09-08 06:52 | Outpatient (CLI) | payer SELFPAY ==
--- NOTE | 2020-09-08 06:55 | CT_ITS ---
PROCEDURE: CT HEART W CALCIUM SCORE CLINICAL HISTORY: chest pain Family hx of heart disease COMPARISON: CT CT ABDOMEN PELVIS W CON from 10/05/2019 TECHNIQUE: Axial images obtained with sagittal and coronal reformats. All CT scans at the facility use one or more dose reduction, viz: automated exposure control, ma/kV adjustment per patient size (including targeted exams where dose is matched to indication, i.e. head), or iterative reconstruction technique. FINDINGS: Coronary artery calcium score is 59. Mild calcific plaque burden with moderate cardiovascular disease risk. There is a 9 mm nodular opacity in the left lower lobe inferiorly. This could be due to an area atelectasis or fibrotic change. Developing nodule is not excluded. There is some faint ground-glass attenuation in the left lower lobe posterior medially and left lower lobe medially there are degenerative changes in the lumbar and thoracic spine. Pneumobilia noted. IMPRESSION: Mild calcific plaque burden with moderate cardiovascular disease risk Left lower lobe nodule. Suggest dedicated chest CT with contrast for further evaluation based on this exam and on the previous abdomen CT of 10/05/2019. Dictated by: Tony Fox MD 09/09/2020 07:55 Tony Fox MD in [facility] 09/09/2020 07:55
== END ==
PROVIDERS: PCP Family Medicine; Visit Provider Internal Medicine Cardiovascular Disease
DX: Z13.6 Encounter for screening for cardiovascular disorders (principal)
CPT/HCPCS: 75571

== ENCOUNTER 2020-09-15 13:08 | Day surgery (SDC) | payer MEDICARE, MEDICAID, SELFPAY ==
[2020-09-15 13:13] VITALS: BP 155/73; PULSE 73; RESP 20; O2SAT 97; BMI 51.4
--- NOTE | 2020-09-15 13:29 | P.PCN_ITS ---
- Procedure Date: 09/15/20 Time: 13:30 Anesthesiologist:: Harper Lowe APRN Complications:: None Pre-procedure Diagnosis:: Degenerative disc disease of the lumbar spine with lumbar radiculopathy symptoms Post-procedure Diagnosis:: Same Indications for Procedure:: Patient is a pleasant 54-year-old white female who presents today for intrathecal pain pump refill and reprogram. She is currently being treated for degenerative disc disease of the lumbar spine with lumbar radiculopathy. She is rating her pain today a 6 out of 10. She is currently managed with intrathecal Dilaudid at 0.21 mg/day. The patient denies any side effects to this medication. She is requesting an increase in her dose today. She is having increasing pain in the low back with activities such as chores at home. Her Andres number is [id number] she has an active morphine equivalent of 0. Physical exam General: Alert and oriented x3 no acute distress, pleasant and cooperative, [on room air] Lungs: Respirations even and unlabored, symmetrical chest expansion Eyes: PERRL Musculoskeletal: Flexion and extension of the lumbar spine nonguarded, deep tendon reflexes normal, strength in upper and lower extremities 5 out of 5 normal gait noted Neurological: Speech clear, maturity checker equal, no gross sensory deficit Procedure Details:: Informed consent was obtained and the risk and benefits of the procedure were explained to the patient. The patient was taken to the procedure room where noninvasive monitoring was placed including noninvasive blood pressure cuff and pulse oximeter. Patient's pump was interrogated. The area over the pump was cleansed with chlorhexidine as a cleansing solution. In sterile fashion the pump was accessed with a 22-gauge needle. Approximately 7.5 mls of the pump solution was removed and discarded appropriately. The pump was then refilled with 20 mL's of [Dilaudid 1 mg/mL]. The needle was withdrawn and a bandage was placed over the puncture site. The infusion rate was reprogrammed at increased to 0.23 mg/day. The patient tolerated well with no complication. Plan and Disposition:: We will see the patient back at her next intrathecal pain pump refill. She is welcome to contact the clinic if she has any questions or concerns prior to her next appointment date. Dr. Canchola has reviewed this note and agrees with this plan of care. This note was dictated using voice recognition software and make contain errors or omissions.
[2020-09-15 13:30] VITALS: BP 158/81; PULSE 76; RESP 18; O2SAT 98
[2020-09-15 13:31] VITALS: BP 158/81; PULSE 77; RESP 18; O2SAT 99
[2020-09-15 13:55] VITALS: BP 145/78; PULSE 78; RESP 20; O2SAT 97
== END 2020-09-15 13:55 | disposition home or self-care (01) ==
PROVIDERS: PCP Family Medicine; Visit Provider Family Medicine
DX: M51.16 Intervertebral disc disorders with radiculopathy, lumbar region (principal)
CPT/HCPCS: 62370; 80305

== ENCOUNTER → 2020-09-15 14:14 | Outpatient (CLI) | payer MEDICARE, MEDICAID, SELFPAY ==
[2020-09-15 14:56] LABS: Barbiturates Screen,Urine Negative ng/ml (<200)
[2020-09-15 14:57] LABS: Amphetamine/Metha Screen,Urine Negative ng/ml (<1000); Benzodiazepines Screen,Urine Negative ng/ml (<200)
[2020-09-15 15:00] LABS: Opiate Screen,Urine Negative ng/ml (<300)
[2020-09-15 15:01] LABS: Phencyclidine Screen,Urine Negative ng/ml (<25)
[2020-09-15 15:02] LABS: Cocaine Screen,Urine Negative ng/ml (<300)
[2020-09-15 15:03] LABS: Methadone Screen,Urine Negative ng/ml (<300)
[2020-09-15 15:14] LABS: Cannabinoid Screen,Urine Negative ng/ml (<50)
== END ==
PROVIDERS: Visit Provider Family Medicine
DX: Z79.891 Long term (current) use of opiate analgesic (principal)
CPT/HCPCS: 80305

== ENCOUNTER → 2020-10-13 07:08 | Outpatient (CLI) | payer MEDICARE, MEDICAID, SELFPAY ==
--- NOTE | 2020-10-13 07:09 | CT_ITS ---
PROCEDURE: CT CHEST WO CON CLINICAL INDICATION: Lung nodule COMPARISON: CT CT ABDOMEN PELVIS W CON from 10/05/[address] HEART W CALCIUM SCORE from 09/08/2020 TECHNIQUE: Axial images obtained with sagittal and coronal reformats. All CT scans at the facility use one or more dose reduction, viz: automated exposure control, ma/kV adjustment per patient size (including targeted exams where dose is matched to indication, i.e. head), or iterative reconstruction technique. FINDINGS: No mediastinal or hilar mass or adenopathy. Coronary artery calcifications are present. There are few small axillary lymph nodes on the left. There is a stable 7 mm nodule in the right lung base medially. Parenchymal scarring present in the right lung base medially. 4 mm fissural nodule in the major fissure on the left superiorly. 3 mm nodule within the lingula in the subpleural region unchanged. 4 mm nodule left lower lobe laterally subpleural unchanged. In the left lower lobe anteriorly in the lung base there is and 8 mm parenchymal opacity similar to the previous CT of 09/08/2020 but not readily apparent on 10/05/2019. No effusions. Faint ground-glass attenuation right lower lobe posteriorly possibly due to dependent changes. Artifact is present from right flank pain pump. There are several small hepatic hypodensities nonspecific and may be due to cysts not significantly changed. Upper abdominal images show colonic diverticulosis. The left adrenal gland is enlarged at 1.8 cm consistent with an adenoma IMPRESSION: Multiple pulmonary nodules as described above most of which are stable. A new parenchymal opacity is present in the left lower lobe anteriorly which could be due to developing nodule or an area of scarring.. Six-month follow-up is suggested. Dictated by: Tony Fox MD 10/13/2020 07:43 Tony Fox MD in [facility] 10/13/2020 07:43
== END ==
PROVIDERS: PCP Family Medicine; Visit Provider Internal Medicine Pulmonary Disease
DX: R91.8 Other nonspecific abnormal finding of lung field (principal)
CPT/HCPCS: 71250

== ENCOUNTER → 2020-10-16 08:40 | Outpatient (POV) | payer MEDICARE, MEDICAID, SELFPAY ==
[2020-10-16 08:47] VITALS: BP 163/78; PULSE 82; RESP 18; O2SAT 97; BMI 50.3
--- NOTE | 2020-10-16 09:14 | P.PCN_ITS ---
- Procedure Date: 10/16/20 Time: 09:14 Anesthesiologist:: Beverly Garrett APRN Complications:: None Pre-procedure Diagnosis:: Degenerative disc disease lumbar spine with lumbar radiculopathy symptoms Post-procedure Diagnosis:: Same Indications for Procedure:: Patient is a pleasant 55-year-old white female who presents today for intrathecal pain pump refill and reprogram. She is being treated for degenerative disc disease lumbar spine with lumbar radiculopathy symptoms. Patient says her pain is a 9 out of 10 today. She is currently on Dilaudid at 0.23 mg/day. She says that she was getting relief to her low back and lower extremities, especially her feet, until the last 4 to 5 days. She says that she feels the pump has stopped working. She would like an increase today. She says that she knows the pump has given her relief since having it implanted, however, the pain is different at this time. We will increase her today to see if she gets relief. She is continuing with a home stretching program. Physical exam General: Alert and oriented x3, no acute distress, pleasant and cooperative, [on room air] Lungs: Respirations even and unlabored, symmetrical chest expansion Eyes: PERRL Musculoskeletal: Flexion and extension of lumbar [spine] somewhat guarded secondary to pain, strength in upper and lower extremities [5/5], [antalgic gait noted] Neurological: Speech clear, [real estate agency principal equal], no gross sensory deficit Procedure Details:: informed consent was obtained and the risk and benefits of the procedure were explained to the patient. Patient was taken to the procedure room where noninvasive monitoring was placed including noninvasive blood pressure cuff and pulse oximeter. Patient's pump was interrogated and was reprogrammed to Dilaudid at 0.28 mg/day. The patient tolerated the procedure well with no complications. Plan and Disposition:: We will see the patient back in the clinic in 1 week and at the next intrathecal refill. Patient has been instructed to contact the clinic with any concerns before the next appointment. Dr. Canchola has reviewed this note and agrees with this plan of care. This note was dictated using voice recognition software and make contain errors or omissions.
== END ==
PROVIDERS: Visit Provider Clinical Nurse Specialist Family Health
DX: M51.16 Intervertebral disc disorders with radiculopathy, lumbar region (principal); Z45.1 Encounter for adjustment and management of infusion pump
CPT/HCPCS: 62368

== ENCOUNTER → 2020-10-27 08:47 | Outpatient (POV) | payer MEDICARE, MEDICAID, SELFPAY ==
[2020-10-27 09:07] VITALS: BP 132/75; PULSE 84; RESP 18; O2SAT 97; BMI 50.3
--- NOTE | 2020-10-27 09:57 | P.PCN_ITS ---
- Procedure Date: 10/27/20 Time: 09:59 Anesthesiologist:: Beverly Garrett APRN Complications:: None Pre-procedure Diagnosis:: Degenerative disc disease lumbar spine with lumbar radiculopathy symptoms Post-procedure Diagnosis:: Same Indications for Procedure:: Patient is a 55-year-old white female who presents today for intrathecal pain pump adjustment. She is being treated for degenerative disc disease lumbar spine with lumbar radiculopathy symptoms. She rates her pain an 8 out of 10 today. Patient says she is having some increased pain in her low back area. She does state she is getting about 40 to 50% relief with her intrathecal pump. She is currently on a dose of Dilaudid at 0.28 mg/day. We will give the patient an increase to see if this gives her relief. We will also change her refill date. She would like a change in her PTC device as well. Physical exam General: Alert and oriented x3, no acute distress, pleasant and cooperative, [on room air] Lungs: Respirations even and unlabored, symmetrical chest expansion Eyes: PERRL Musculoskeletal: Flexion and extension of lumbar [spine] somewhat guarded secondary to pain, strength in upper and lower extremities [5/5], [antalgic gait noted] Neurological: Speech clear, [air moving technician equal], no gross sensory deficit Procedure Details:: Informed consent was obtained and the risk and benefits of the procedure were explained to the patient. Patient was taken to the procedure room where noninvasive monitoring was placed including noninvasive blood pressure cuff and pulse oximeter. Patient's pump was interrogated and was reprogrammed to Dilaudid at 0.34 mg/day, PTC increased to 0.03 mg up to 6 times daily. The patient tolerated the procedure well with no complications. Plan and Disposition:: Risks and benefits of the medication have been explained in detail to the patient. The patient has been advised to consult with his/her primary care provider and pharmacist regarding drug-drug interaction of medications currently prescribed. Patient has been prescribed a controlled substance after being counseled on the medication, medication safety, and possible side effects. BINTA report has been obtained and reviewed prior to prescription and found to be appropriate. Opioid contract was reviewed and signed by the patient, and that they have agreed to all of the terms set forth by our compliance program. Patient has been instructed to contact the clinic with any concerns before the next appointment. Dr. Canchola has reviewed this note and agrees with this plan of care. This note was dictated using voice recognition software and make contain errors or omissions.
== END ==
PROVIDERS: Visit Provider Clinical Nurse Specialist Family Health
DX: M51.16 Intervertebral disc disorders with radiculopathy, lumbar region (principal)
CPT/HCPCS: 62368

== ENCOUNTER 2020-10-27 18:24 | Emergency (ER) | payer MEDICARE, MEDICAID, SELFPAY ==
[2020-10-27 20:00] VITALS: BP 132/72; PULSE 87; RESP 16; TEMP 36.8; O2SAT 97; BMI 50.3
--- NOTE | 2020-10-27 20:22 | HMH.EDUTC ---
[facility] [place] Disposition Clinical Impression: Exposure to COVID-19 virus Disposition: Home, Self-Care Condition on Discharge: Good Instructions: DI for COVID-19 (Suspected or Confirmed ), Preventing the Spread of Coronavirus Discharge Instructions Additional Instructions: *Monitor Temp, Over the counter Motrin or Tylenol as directed/as needed Tylenol every 4 hours and Motrin every 6 hours (as long as your family doctor has told you that you can take it) for fever or pain. and straight to ER if unable to lower temp less than 101.0 after medication given Follow up IMMEDIATELY for new or worsening symptoms or no Noticeable improvement over the next 48-72 hours. 911 for difficulty breathing or swallowing You were tested for today for COVID19 your test result should be back in the next 24-48 hours, you was given handout on how to check for your results on [facility] Portal if you have issues or no internet access you may call the [facility] You was given a handout with instructions for Self Quarantine and Self isolation for while you wait on test results and what to do if they are positive If you are positive the Health Dept will be contacting you also Make sure to take your Vitamins Vit. C Vit D and Zinc if you can take them Referrals: Dandy Clark MD [Primary Care Provider] - As needed Forms: Work/School Release Time of Disposition: 20:22 Medical Decision Making - Andres Inquiry Pt receiving controlled substance: No Andres was queried for this patient: No Vital Signs: 10/27/20 20:00 Temperature 98.3 F Temperature Source Oral Pulse Rate [Right Brachial] 87 Respiratory Rate 16 Blood Pressure [Right Arm] 132/72 Blood Pressure Mean [Right Arm] 92 Blood Pressure Source [Right Arm] Automatic Cuff Blood Pressure Position [Right Arm] Sitting 02 Sat by Pulse Oximetry 97 Oxygen Delivery Method Room Air Orders (Tests/Meds): ORDERS Category Date Time Status Covid-19 Nasal PCR ([facility]) Routine Lab 10/27/20 20:15 Ordered [facility] [place] HPI - General Stated complaint: covid test Time Seen by Provider: 10/27/20 20:22 Mode of Arrival: Ambulatory Source of Information: Patient Limitations: No Limitations Description of Symptoms (Recalled from Triage Doc. by RN): COVID TEST D/T EXPOSURE. C/O BODY ACHES AND CHILLS HEENT Symptoms (Recalled from RN notes): No Resp Symptoms (Recalled from RN notes): No Skin Symptoms (Recalled from RN notes): No MS Symptoms (Recalled from RN notes): No Functional Status (Recalled from RN notes): WNL - History of Present Illness Provider Complaint: Patient states that she has been having body aches, chills and nasal congestion for several days and thought it was allergies States that today her daughter tested positive for COVID so she wanted to come in and get tested for COVID - Related Data Home Medications Medication Instructions Recorded Confirmed buspirone 10 mg tablet 10 mg PO DAILY 30 Days tab 09/19/17 10/13/20 linaclotide 72 mcg capsule 72 mcg PO DAILY 30 Days cap 09/19/17 10/13/20 Fluticasone Propionate 44 mcg NOSTRIL-B DAILY 03/06/19 10/13/20 [Fluticasone Hfa 44mcg Inhaler] Furosemide [Furosemide 80mg Tab] 80 mg PO BID 03/06/19 10/13/20 Levothyroxine Sodium 137 mcg PO DAILY 03/06/19 10/13/20 [Levothyroxine 137mcg (0.137mg) Tab] Montelukast Sodium 10 mg PO DAILY 04/30/20 10/13/20 Ropinirole HCl 0.5 mg PO HS 06/25/20 10/13/20 Hydromorphone HCl/Pf [Dilaudid 0.15 mg IT CONT PRN 07/31/20 10/13/20 1mg/ml inj] bupropion HCl 150 mg tablet,12 hr 150 mg PO DAILY each 09/05/20 10/13/20 sustained-release esomeprazole magnesium 40 mg 40 mg PO DAILY cap 09/05/20 10/13/20 capsule,delayed release estradiol 2 mg tablet 2 mg PO DAILY tab 09/05/20 10/13/20 prucalopride 2 mg tablet 2 mg PO DAILY tab 09/05/20 10/13/20 Aspirin [Low Dose Aspirin EC] 81 mg PO DAILY 09/15/20 10/13/20 Gabapentin 300 mg PO TID 09/15/20 10/13/20 Lisinopril/Hydrochlorothiazide 1 each PO DAILY 09/15/20 10/13/20 [L
[2020-10-27 20:26] VITALS: BP 132/72; PULSE 87; RESP 16; TEMP 36.8; O2SAT 97
== END 2020-10-27 20:30 | disposition home or self-care (01) ==
PROVIDERS: Emergency Provider Nurse Practitioner; PCP Family Medicine
DX: Z20.822 Contact with and (suspected) exposure to COVID-19 (principal); I10 Essential (primary) hypertension; E78.5 Hyperlipidemia, unspecified; F41.8 Other specified anxiety disorders; I50.9 Heart failure, unspecified; K21.9 Gastro-esophageal reflux disease without esophagitis; E03.9 Hypothyroidism, unspecified; Z79.899 Other long term (current) drug therapy
CPT/HCPCS: G0463; 62368; 99202; C9803; U0003; U0005

== ENCOUNTER 2020-11-03 14:05 | Day surgery (SDC) | payer MEDICARE, MEDICAID, SELFPAY ==
[2020-11-03 14:09] VITALS: BP 179/93; PULSE 90; RESP 18; TEMP 35.9; O2SAT 100; BMI 38.0
[2020-11-03 14:46] VITALS: BP 144/82; PULSE 80; RESP 18; O2SAT 97
[2020-11-03 14:48] VITALS: BP 144/82; PULSE 85; RESP 18; O2SAT 98
--- NOTE | 2020-11-03 14:55 | P.PCN_ITS ---
- Procedure Date: 11/03/20 Time: 14:55 Anesthesiologist:: Beverly Garrett APRN Complications:: None Pre-procedure Diagnosis:: Degenerative disc disease lumbar spine with lumbar radiculopathy symptoms Post-procedure Diagnosis:: same Indications for Procedure:: Patient is a pleasant 55 year old white female who presents today for intrathecal pain pump refill and reprogram. She is being treated for degenerative disc disease lumbar spine with lumbar radiculopathy symptoms. She rates her pain a 7 out of 10 and would like an increase today. Patient's intrathecal pump is tilted. She says that she is having difficulty accessing the pump for boluses at home. She reports to have had a recent weight loss. The pump is flipped today. Patient was repositioned with the pump and the pump was read appropriately. She is currently on a dose of Dilaudid at 0.34 mg/day and would like an increase today. She does take gabapentin as well but does not need refill on this medicine at this time. [facility] #[id number] has been reviewed and is appropriate. Drug screen is appropriate. She denies any side effects to medication. Physical exam General: Alert and oriented x3, no acute distress, pleasant and cooperative, [on room air] Lungs: Respirations even and unlabored, symmetrical chest expansion Eyes: PERRL Musculoskeletal: Flexion and extension of lumbar [spine] somewhat guarded secondary to pain, strength in upper and lower extremities [5/5], [antalgic gait noted] Neurological: Speech clear, [marine erector equal], no gross sensory deficit Procedure Details:: Informed consent was obtained and the risk and benefits of the procedure were explained to the patient. The patient was taken to the procedure room where noninvasive monitoring was placed including noninvasive blood pressure cuff and pulse oximeter. Patient's pump was interrogated. The area over the pump was cleansed with chlorhexidine as a cleansing solution. In sterile fashion the pum p was accessed with a 22-gauge needle. Approximately 9 mls of the pump solution was removed and discarded appropriately. The pump was then refilled with 20 mL's of Dilaudid 1 mg/mL. The needle was withdrawn and a bandage was placed over the puncture site. The infusion rate was reprogrammed at Dilaudid at 0.4 mg/day.. The patient tolerated well with no complication. Plan and Disposition:: We will plan to increase the patient's concentration at her next visit to Dilaudid 5 mg per mill. We will also schedule her for a tacked down of her intrathecal pump. Patient has been instructed to contact the clinic with any concerns before the next appointment. Dr. Canchola has reviewed this note and agrees with this plan of care. This note was dictated using voice recognition software and make contain errors or omissions.
[2020-11-03 14:59] VITALS: BP 155/75; PULSE 84; RESP 20; O2SAT 97
== END 2020-11-03 15:00 | disposition home or self-care (01) ==
LOC: SC.PAINP 14:06
PROVIDERS: PCP Family Medicine; Visit Provider Clinical Nurse Specialist Family Health
DX: M51.16 Intervertebral disc disorders with radiculopathy, lumbar region (principal); Z45.1 Encounter for adjustment and management of infusion pump
CPT/HCPCS: 62370

== ENCOUNTER 2020-11-03 17:53 | Emergency (ER) | payer MEDICARE, MEDICAID, SELFPAY ==
[2020-11-03 18:04] VITALS: PULSE 103; RESP 20; O2SAT 97; BMI 50.3
[2020-11-03 18:23] VITALS: BP 162/65; PULSE 99; RESP 18; TEMP 36.5; O2SAT 94; BMI 50.3
--- NOTE | 2020-11-03 18:45 | HMH.EDUTC ---
[facility] [place] Clinical Impression: Low back pain Qualifiers: Chronicity: unspecified Back pain laterality: right Sciatica presence: with sciatica Sciatica laterality: sciatica of right side Qualified Code(s): M54.41 - Lumbago with sciatica, right side Disposition: Home, Self-Care Condition on Discharge: Good Instructions: Low Back Pain, DI for Low Back Pain Additional Instructions: sTake tylenol for pain or fever. Return if you have worsening symptoms. Please go to the er. Follow up with your regular doctor. Follow up with Dr. Canchola. GO TO THE ER FOR ANY WORSENING SYMPTOMS Quarantine until you know the results of your covid-19 test. If it is positive, the health department should call you and give you further instructions about your length of Quarantine and other things. Notify your school or workplace of your results and follow their instructions regarding return to work/school. Prescriptions: Cyclobenzaprine HCl [Cyclobenzaprine 10mg Tab] 10 mg PO BIDP PRN #20 tab PRN Reason: Muscle Spasm Transmission Status: Pending to [facility] Referrals: Dandy Clark MD [Primary Care Provider] - Time of Disposition: 19:38 Medical Decision Making - Medical Records Medical records reviewed: No: I reviewed the patient's medical records. - Andres Inquiry Pt receiving controlled substance: No Vital Signs: 11/03/20 18:04 11/03/20 18:23 Temperature 97.7 F Temperature Source Oral Pulse Rate [Left Radial] 103 H 99 H Respiratory Rate 20 18 Blood Pressure [Right Arm] 162/65 H Blood Pressure Mean [Right Arm] 97 Blood Pressure Source [Right Arm] Automatic Cuff Blood Pressure Position [Right Arm] Supine 02 Sat by Pulse Oximetry 97 94 L Oxygen Delivery Method Room Air Room Air Orders (Tests/Meds): ED MEDICATIONS Discontinued Medications Generic Name Dose Route Start Last Admin Trade Name Freq PRN Reason Stop Dose Admin Ketorolac Tromethamine 60 mg 11/03/20 18:55 11/03/20 19:03 Ketorolac 60mg/2ml Vial IM 11/03/20 18:56 60 mg ONCE ONE Administration [facility] [place] H[place] - General Stated complaint: back pain has pain pump Time Seen by Provider: 11/03/20 18:45 Mode of Arrival: Ambulatory Source of Information: Patient Limitations: No Limitations Description of Symptoms (Recalled from Triage Doc. by RN): back pain right HEENT Symptoms (Recalled from RN notes): No Resp Symptoms (Recalled from RN notes): No Skin Symptoms (Recalled from RN notes): No MS Symptoms (Recalled from RN notes): Yes Functional Status (Recalled from RN notes): na - History of Present Illness Provider Complaint: She has an interal pain pump that was refilled with mso4 at Dr. Canchola's office today. She states that they had a lot of trouble gettng the pump refilled and they had to manipulate it a lot. Since she went home, she began to have worsening pain at the site used to refill the pump. - Related Data Home Medications Medication Instructions Recorded Confirmed buspirone 10 mg tablet 10 mg PO DAILY 30 Days tab 09/19/17 11/03/20 linaclotide 72 mcg capsule 72 mcg PO DAILY 30 Days cap 09/19/17 11/03/20 Fluticasone Propionate 44 mcg NOSTRIL-B DAILY 03/06/19 11/03/20 [Fluticasone Hfa 44mcg Inhaler] Furosemide [Furosemide 80mg Tab] 80 mg PO BID 03/06/19 11/03/20 Levothyroxine Sodium 137 mcg PO DAILY 03/06/19 11/03/20 [Levothyroxine 137mcg (0.137mg) Tab] Montelukast Sodium 10 mg PO DAILY 04/30/20 11/03/20 Ropinirole HCl 0.5 mg PO HS 06/25/20 11/03/20 Hydromorphone HCl/Pf [Dilaudid 0.15 mg IT CONT PRN 07/31/20 11/03/20 1mg/ml inj] bupropion HCl 150 mg tablet,12 hr 150 mg PO DAILY each 09/05/20 11/03/20 sustained-release esomeprazole magnesium 40 mg 40 mg PO DAILY cap 09/05/20 11/03/20 capsule,delayed release estradiol 2 mg tablet 2 mg PO DAILY tab 09/05/20 11/03/20 prucalopride 2 mg tablet 2 mg PO DAILY tab 09/05/20 11/03/20 Aspirin [Low Dose Aspirin EC] 81 mg PO DAILY
[2020-11-03 19:58] VITALS: BP 162/65; PULSE 99; RESP 18; TEMP 36.5; O2SAT 94
== END 2020-11-03 19:59 | disposition home or self-care (01) ==
PROVIDERS: Emergency Provider Nurse Practitioner Family; PCP Family Medicine
DX: M54.41 Lumbago with sciatica, right side (principal); K21.9 Gastro-esophageal reflux disease without esophagitis; E11.9 Type 2 diabetes mellitus without complications; I50.9 Heart failure, unspecified; F41.8 Other specified anxiety disorders; E78.5 Hyperlipidemia, unspecified; I10 Essential (primary) hypertension; E03.9 Hypothyroidism, unspecified; Z79.899 Other long term (current) drug therapy
CPT/HCPCS: G0463; 96372; 99202

== ENCOUNTER → 2020-11-11 14:06 | Outpatient (POV) | payer MEDICARE, MEDICAID, SELFPAY ==
[2020-11-11 14:33] VITALS: BP 132/75; PULSE 99; RESP 20; O2SAT 98; BMI 50.3
--- NOTE | 2020-11-11 14:41 | P.PCN_ITS ---
- Procedure Date: 11/11/20 Time: 14:41 Anesthesiologist:: Beverly Garrett APRN Complications:: None Pre-procedure Diagnosis:: Degenerative disc disease lumbar spine with lumbar radiculopathy symptoms, pump site pain Post-procedure Diagnosis:: Same Indications for Procedure:: Patient is a 55-year-old white female who presents today for complaints of pain around her pump site. At last visit, the patient's pump was flipped. She has had pain at the site since her last refill. She does rate her pain a 7 or an 8 out of 10. She is also going to the emergency room and has been given muscle relaxers and other medications in the ER. We will numb the area up with bupivacaine today to see if this relieves the pain at the pump site. She is scheduled for a tacked down of the pump in November. Physical exam General: Alert and oriented x3, no acute distress, pleasant and cooperative, [on room air] Lungs: Respirations even and unlabored, symmetrical chest expansion Eyes: PERRL Musculoskeletal: Flexion and extension of lumbar [spine] somewhat guarded secondary to pain, strength in upper and lower extremities [5/5], [antalgic gait noted] Neurological: Speech clear, [dry heat room attendant equal], no gross sensory deficit Procedure Details:: Informed consent was obtained and the risk and benefits of the procedure were explained to the patient. The patient was taken to the procedure room where noninvasive monitoring was placed including noninvasive blood pressure cuff and pulse oximeter. The area over the pump was cleansed with chlorhexidine as a cleansing solution. In sterile fashion the skin surrounding the intrathecal pump was injected with a 25 gauge needle, using bupivacaine. The needle was withdrawn and a bandage was placed over the puncture site. The infusion rate was reprogrammed at []. The patient tolerated well with no complication. Plan and Disposition:: Patient will undergo a takedown of her device in November. We will see the patient back in the clinic at the next intrathecal refill. Patient has been instructed to contact the clinic with any concerns before the next appointment. Dr. Canchola has reviewed this note and agrees with this plan of care. This note was dictated using voice recognition software and make contain errors or omissions.
--- NOTE | 2020-11-11 14:57 | P.CONS_ITS ---
[facility] Pain Management SOAP Note Subjective:: Patient is a 55-year-old white female who presents today for complaints of pain around her incision site. She has been to the emergency room with worsening symptoms. She says that since her last visit her pain has progressively worsened around her pump site. At last visit, the patient's pump had to be repositioned due to flipping. She has los a great deal of weight and is now having difficulty with positioning of the pump. She is unable to give herself boluses due to movement of the pump. She rates her pain a 9 out of 10. She is given muscle relaxers and medication in the emergency room. We did discuss compounding cream to apply topically to the area until she is able to undergo tacked down. We also discussed Lidoderm patches. Review of Systems General: No recent weight changes, no fever, no sleep disturbances Respiratory: No cough, no shortness of air, no recurring pulmonary infections Cardiovascular/peripheral vascular: No chest pain, no palpitations, no edema, no shortness of breath Gastrointestinal: No new onset incontinence, normal bowel movements reported Genitourinary: No new onset incontinence Musculoskeletal: Pain at pump site Psychiatric: [Normal mood/affect] Neurological: [Denies weakness in extremities], [denies balance issues] Objective:: Physical exam General: Alert and oriented x3, no acute distress, pleasant and cooperative, [on room air] Lungs: Respirations even and unlabored, symmetrical chest expansion Eyes: PERRL Musculoskeletal: Flexion and extension of lumbar [spine] somewhat guarded secondary to pain, strength in upper and lower extremities [5/5], [antalgic gait noted] Neurological: Speech clear, [process artist equal], no gross sensory deficit Assessment:: Myofascial pain lumbar spine?at intrathecal pump site Plan:: We will order the patient compounding cream to apply topically to the area until she can undergo pump takedown. We will see her back after the takedown to reevaluate symptoms. Patient has been instructed to contact the clinic with any concerns before the next appointment. Dr. Canchola has reviewed this note and agrees with this plan of care. This note was dictated using voice recognition software and make contain errors or omissions. [facility] History I have reviewed the patient's past medical history: Yes Medical History: Reports:: Anxiety, Asthma, Congestive Heart Failure, Depression, Diabetes Mellitus Type 2, Gastroesophageal Reflux Disease(GERD), Hyperlipidemia, Hypertension, Migraine Denies:: Cancer, Diabetes Mellitus Type 1, Internal Pacemaker, Lung Disease, MRSA, Seizures *Have you ever received a pneumonia vaccine?: No *Have you received a flu vaccine this season?: No Other Medical History: Reports: Arthritis, Glaucoma, Hormone Therapy, Hypothyroidism, Thyroid Disease. Denies: Blood Transfusion Reaction Laterality Cases: Right: Arthroscopy Knee, Bilateral: Other Other Surgeries: Yes: Cholecystectomy, Colonoscopy, EGD, Hysterectomy-Total, Other (pain pump implant, neurostimulator implant/removal). No: Pacemaker Amputation: No Fractures: Yes (LEFT WRIST) - *Social History Smoking Status: Never smoker Alcohol Intake: never Alcohol Intake Frequency:: other Substance Use Type: denies use *Occupational Status:: unemployed Housing: house Household Members: spouse *Travel in the last 8 weeks: None - Psychiatric History Pschychiatric History:: Reports:: Anxiety, Depression Family Hx:: Heart Attack, Stroke, Hypertension, Diabetes, Cancer
== END ==
PROVIDERS: PCP Family Medicine; Visit Provider Clinical Nurse Specialist Family Health
DX: M79.18 Myalgia, other site (principal); Z45.1 Encounter for adjustment and management of infusion pump
CPT/HCPCS: 99212; G0463

== ENCOUNTER → 2020-12-01 12:34 | Outpatient (CLI) | payer MEDICARE, MEDICAID, SELFPAY ==
[2020-12-01 13:38] LABS: Basophils # 0.1 K/mm3 (0-0.2); Basophils % 0.5 % (0.1-2.0); Eosinophils # 0.2 K/mm3 (0.0-0.4); Eosinophils % 1.9 % (0.1-12.0); Hematocrit 47.2 % (37.0-47.0); Hemoglobin 14.8 g/dL (12.2-16.2); Lymphocytes # 1.7 K/mm3 (0.7-4.5); Lymphocytes % 16.5 % (10-50); Mean Corpuscular HGB Conc 31.4 g/dL (31.8-35.4); Mean Corpuscular Hemoglobin 28.9 pg (27.0-31.2); Mean Corpuscular Volume 92.2 fl (81-99); Mean Platelet Volume 7.2 fl (7.4-10.4); Monocytes # 0.5 K/mm3 (0.1-1.0); Monocytes % 4.9 % (1.7-9.3); Neutrophils % 76.2 % (37.0-80.0); Platelet Count 453 K/mm3 (142-424); Red Blood Count 5.12 M/mm3 (4.20-5.40); Red Cell Distribution Width 15.4 % (11.5-17.5); White Blood Count 10.5 K/mm3 (4.8-10.8)
[2020-12-01 14:38] LABS: Chloride 97 mmol/L (98-107); Potassium 3.9 mmoL/L (3.5-5.1); Sodium 140 mmol/L (136-145)
[2020-12-01 14:41] LABS: Anion Gap 17.9 mEq/L (5-15); Blood Urea Nitrogen 17 mg/dl (7-17); Calcium 9.7 mg/dl (8.4-10.2); Carbon Dioxide 29 mmol/L (22.0-30.0); Estimated Glomerular Filt Rate 74 ml/min (>60); GFR (African American) 89 ML/MIN (>60); Glucose 83 mg/dl (74-100)
== END ==
PROVIDERS: Visit Provider Anesthesiology
DX: Z01.818 Encounter for other preprocedural examination (principal)
CPT/HCPCS: 36415; 80048; 85025

== ENCOUNTER → 2020-12-02 10:47 | Outpatient (CLI) | payer MEDICARE, MEDICAID, SELFPAY | PROVIDERS: Visit Provider Anesthesiology | DX: Z01.812 Encounter for preprocedural laboratory examination (principal); M51.36 Other intervertebral disc degeneration, lumbar region; Z11.52 Encounter for screening for COVID-19 | CPT/HCPCS: C9803; U0003; U0005 ==

== ENCOUNTER 2020-12-03 06:02 | Day surgery (SDC) | payer MEDICARE, MEDICAID, SELFPAY ==
[2020-12-01 08:38] VITALS: BMI 51.4
[2020-12-03 06:24] VITALS: BP 156/81; PULSE 92; RESP 18; TEMP 36.1; O2SAT 97
--- NOTE | 2020-12-03 08:21 | P.PN_ITS ---
[facility] Anesthesia Checklist - Patient Identification Patient Identification: Arm Band, Verbal (Name & ) - Structural Data Admitted From: Home Planned Operative Procedure/s: Pain pump pocket revision Consent for Planned Operative Procedure(s) Verified: Yes Verified Documents: Surgical Consent - NPO Status Verified Time NPO: 00:00 - Chart Verification Results Verified: None - Additional verifications Anesthesia Reactions: No Hx Blood Transfusions: No Blood Transfusion Reaction: No - Cardiovascular Assessment Heart Sounds: S1 & S2 - Airway Assessment C-Spine Mobility Assessed: Yes TMJ Mobility Assessed: Yes Dentition: Good Dentition - Neurological Assessment Level of Consciousness: Awake, Alert, Appropriate - Anesthesia Plan Anesthesia Risk discussed: Yes ASA Class: III Anesthesia Type: MAC [facility] History Medical History: Reports:: Anxiety, Asthma, Congestive Heart Failure, Depression, Gastroesophageal Reflux Disease(GERD), Hyperlipidemia, Hypertension, Migraine Denies:: Cancer, Diabetes Mellitus Type 1, Diabetes Mellitus Type 2, Internal Pacemaker, Lung Disease, MRSA, Seizures *Have you ever received a pneumonia vaccine?: No *Have you received a flu vaccine this season?: No Other Medical History: Reports: Arthritis, Glaucoma, Hormone Therapy, Hypothyro idism, Thyroid Disease. Denies: Blood Transfusion Reaction Anesthesia experience/problems:: no issues Laterality Cases: Right: Arthroscopy Knee, Bilateral: Other Other Surgeries: Yes: Cholecystectomy, Colonoscopy, EGD, Hysterectomy-Total, Other (pain pump implant, neurostimulator implant/removal). No: Pacemaker Amputation: No Fractures: Yes (LEFT WRIST) - *Social History Last grade of school completed: Some college Smoking Status: Never smoker Alcohol Intake: never Alcohol Intake Frequency:: other Substance Use Type: denies use *Occupational Status:: disabled Housing: house Household Members: spouse, family, children *Travel in the last 8 weeks: None - Psychiatric History Pschychiatric History:: Reports:: Anxiety, Depression Family Hx:: Cancer, Coronary Artery Disease, Heart Attack, Hyperlipidemia, Hypertension, Stroke
[2020-12-03 09:07] VITALS: BP 148/84; PULSE 86; RESP 16; TEMP 36.9; O2SAT 98
--- NOTE | 2020-12-03 09:07 | HMH.OPNOTE ---
Date of procedure: 12/03/20 Pre-op Diagnosis:: Malpositioned pain pump generator Post-op Diagnosis:: Same reposition of pain pump generator Procedure performed:: Reposition of pain pump generator Surgeon:: Rolan Gold MD TIE FASTENER:: Erwin Fatima, Kat Chery, Roldan Lauren, Darrick Maya, Hermann Peng, Maximo Badillo, Other Anesthesia: MAC Estimated blood loss (mL): 2 Operative findings:: Not applicable Operative note:: Patient was placed prone on the operating table and once adequate IV sedation was obtained via anesthesia the back was prepped draped in sterile fashion. Left flank incision opened over the pump and carried out the skin and subcutaneous tissues. Pump was delivered from the pocket noting redundancy of the catheter in the pocket. The generator was placed back in the pocket and was secured at 3 different areas on the pump to the fascia with interrupted stitches of the 2-0 Prolene. At this point the subcutaneous tissues were closed with interrupted stitches of 2-0 Vicryl the skin was closed with stitches of 4-0 nylon. Sterile compression dressing applied to the wound. Patient tolerated procedure well taken recovery room in stable condition. The patient will be discharged home will follow-up in the clinic next week for reassessment incision. She will continue to wear her binder. The patient Toller procedure well. Antibiotic x1 week per protocol. Condition: stable Disposition: PACU Complications:: None
[2020-12-03 09:22] VITALS: BP 154/91; PULSE 83; RESP 16; O2SAT 96
[2020-12-03 09:37] VITALS: BP 125/63; PULSE 82; RESP 16; O2SAT 97
[2020-12-03 09:52] VITALS: BP 120/62; PULSE 80; RESP 16; O2SAT 97
== END 2020-12-03 09:52 | disposition home or self-care (01) ==
LOC: OR 06:04
PROVIDERS: PCP Family Medicine; Visit Provider Surgery
DX: Z45.1 Encounter for adjustment and management of infusion pump (principal); T85.625A Displacement of other nervous system device, implant or graft, initial encounter; F41.9 Anxiety disorder, unspecified; J45.909 Unspecified asthma, uncomplicated; I11.0 Hypertensive heart disease with heart failure; I50.9 Heart failure, unspecified; F32.9 Major depressive disorder, single episode, unspecified; K21.9 Gastro-esophageal reflux disease without esophagitis; E78.5 Hyperlipidemia, unspecified; G43.909 Migraine, unspecified, not intractable, without status migrainosus; M19.90 Unspecified osteoarthritis, unspecified site; E03.9 Hypothyroidism, unspecified
CPT/HCPCS: 63688; 96374; J2405; J2704; J3370

== ENCOUNTER 2020-12-08 12:48 | Day surgery (SDC) | payer MEDICARE, MEDICAID, SELFPAY ==
[2020-12-08 13:04] VITALS: BP 185/88; PULSE 105; RESP 20; TEMP 36.1; O2SAT 97; BMI 51.4
--- NOTE | 2020-12-08 13:09 | P.PCN_ITS ---
- Procedure Date: 12/08/20 Time: 13:09 Anesthesiologist:: Beverly Garrett APRN Complications:: None Pre-procedure Diagnosis:: Degenerative disc disease lumbar spine with lumbar radiculopathy symptoms Post-procedure Diagnosis:: Same Indications for Procedure:: Patient is a 55-year-old white female who presents today for intrathecal pain pump refill and reprogram. She is being treated for degenerative disc disease lumbar spine with lumbar radiculopathy symptoms. Patient simply underwent repositioning of her intrathecal pain pump. She does have an open incision. She did remove her wound VAC herself due to itching. She rates her pain a 7 out of 10 and would like an increase. She will undergo concentration change today. We will not be able to increase patient until next week. She denies any side effects to medication. Physical exam General: Alert and oriented x3, no acute distress, pleasant and cooperative Lungs: Respirations even and unlabored, symmetrical chest expansion Eyes: PERRL Musculoskeletal: Flexion and extension of lumbar [spine] somewhat guarded secondary to pain, [antalgic gait noted] Neurological: Speech clear, no gross sensory deficit Procedure Details:: Informed consent was obtained and the risk and benefits of the procedure were explained to the patient. The patient was taken to the procedure room where n oninvasive monitoring was placed including noninvasive blood pressure cuff and pulse oximeter. Patient's pump was interrogated. The area over the pump was cleansed with chlorhexidine as a cleansing solution. Fluoroscopy was used to determine location of intrathecal port. In sterile fashion the pump was accessed with a 22-gauge needle. Approximately 3.5 mls of the pump solution was removed and discarded appropriately. The pump was then refilled with 20 mL's of Dilaudid 5 mg per male. The needle was withdrawn and a bandage was placed over the puncture site. The infusion rate was reprogrammed at Dilaudid at 0.4 mg/day. The patient tolerated well with no complication. Plan and Disposition:: We will see the patient back in the clinic at the next intrathecal refill. Patient has been instructed to contact the clinic with any concerns before the next appointment. Dr. Canchola has reviewed this note and agrees with this plan of care. This note was dictated using voice recognition software and make contain errors or omissions.
[2020-12-08 13:13] VITALS: BP 168/90; PULSE 95; RESP 18; O2SAT 98
[2020-12-08 13:14] VITALS: PULSE 95; RESP 18; O2SAT 97
[2020-12-08 13:48] VITALS: BP 158/81; PULSE 88; RESP 20; O2SAT 94
== END 2020-12-08 13:49 | disposition home or self-care (01) ==
LOC: SC.PAINP 12:48
PROVIDERS: PCP Family Medicine; Visit Provider Clinical Nurse Specialist Family Health
DX: M51.16 Intervertebral disc disorders with radiculopathy, lumbar region (principal); Z45.1 Encounter for adjustment and management of infusion pump; I10 Essential (primary) hypertension; E03.9 Hypothyroidism, unspecified; F32.9 Major depressive disorder, single episode, unspecified
CPT/HCPCS: 62370

== ENCOUNTER → 2020-12-15 11:36 | Outpatient (POV) | payer MEDICARE, MEDICAID, SELFPAY ==
[2020-12-15 12:01] VITALS: BP 165/72; PULSE 88; RESP 18; O2SAT 97; BMI 41.3
--- NOTE | 2020-12-15 12:09 | P.PCN_ITS ---
- Procedure Date: 12/15/20 Time: 12:09 Anesthesiologist:: Beverly Garrett APRN Complications:: None Pre-procedure Diagnosis:: Degenerative disc disease lumbar spine with lumbar radiculopathy symptoms Post-procedure Diagnosis:: Same Indications for Procedure:: Patient is a 55-year-old white female who presents today for intrathecal pain pump adjustment and for suture removal. The patient did have a takedown of her device due to malpositioning of her intrathecal pump. She is rating her pain 0 out of 10 at this time. She would like an increase in her boluses. She says when she does have acute pain the boluses seem to give her significant relief, but she is more active. As result she would like an increase in her boluses. She is currently with boluses at 0.03 mg up to 6 times daily. Physical exam General: Alert and oriented x3, no acute distress, pleasant and cooperative Lungs: Respirations even and unlabored, symmetrical chest expansion Eyes: PERRL Musculoskeletal: Flexion and extension of lumbar [spine] somewhat guarded secondary to pain, [antalgic gait noted] Neurological: Speech clear, no gross sensory deficit Procedure Details:: Informed consent was obtained and the risk and benefits of the procedure were explained to the patient. Patient was taken to the procedure room where noninvasive monitoring was placed including noninvasive blood pressure cuff and pulse oximeter. Patient's pump was interrogated and was reprogrammed to Dilaudid at 0.48 mg/day, PTC increased to 0.05 mg up to 6 times daily. The patient tolerated the procedure well with no complications. Plan and Disposition:: Patient's boluses were increased today. Sutures were removed with Steri-Strips applied to the incision. She is doing much better since repositioning and takedown of the device. We will plan to follow-up with the patient at her next refill date. She has been instructed to contact clinic if she has any concerns b efore next appointment. Patient has been instructed to contact the clinic with any concerns before the next appointment. Dr. Canchola has reviewed this note and agrees with this plan of care. This note was dictated using voice recognition software and make contain errors or omissions.
== END ==
PROVIDERS: PCP Family Medicine; Visit Provider Clinical Nurse Specialist Family Health
DX: M51.16 Intervertebral disc disorders with radiculopathy, lumbar region (principal)
CPT/HCPCS: 62368; 99212; G0463

== ENCOUNTER → 2021-01-06 13:56 | Day surgery (SDC) | payer MEDICARE, MEDICAID, SELFPAY ==
[2021-01-06 14:16] VITALS: BP 162/61; PULSE 95; RESP 18; O2SAT 96; BMI 50.3
--- NOTE | 2021-01-06 14:37 | HMH.PMPROC ---
- Procedure Date: 01/06/21 Time: 14:37 Anesthesiologist:: Beverly Garrett APRN Complications:: None Pre-procedure Diagnosis:: Degenerative disc disease lumbar spine with lumbar radiculopathy symptoms Post-procedure Diagnosis:: Same Indications for Procedure:: Patient is a 55-year-old white female who presents today for intrathecal pain pump adjustment. The patient is doing well at this time with her intrathecal therapy, but reports that she recently relocated and is having worse pain due to an boxing and loading furniture. She does rate her pain a 7 out of 10. She is currently on Dilaudid at 0.48 mg/day. She denies any side effects. The patient's Andres #[id number] has been reviewed and is appropriate. Morphine equivalent is 0. Physical exam General: Alert and oriented x3, no acute distress, pleasant and cooperative Lungs: Respirations even and unlabored, symmetrical chest expansion Eyes: PERRL Musculoskeletal: Flexion and extension of lumbar [spine] somewhat guarded secondary to pain, [antalgic gait noted] Neurological: Speech clear, no gross sensory deficit Procedure Details:: Informed consent was obtained and the risk and benefits of the procedure were explained to the patient. Patient was taken to the procedure room where noninvasive monitoring was placed including noninvasive blood pressure cuff and pulse oximeter. Patient's pump was interrogated and was reprogrammed to Dilaudid at 0.6 mg/day. The patient tolerated the procedure well with no complications. Plan and Disposition:: Patient was increased today we will see if this gives the patient relief. We will plan to see her back in the clinic at her next refill appointment. We will see the patient back in the clinic at the next intrathecal refill. Patient has been instructed to contact the clinic with any concerns before the next appointment. Dr. Canchola has reviewed this note and agrees with this plan of care. This note was dictated using voice recognition software and make contain errors or omissions.
== END ==
PROVIDERS: PCP Family Medicine; Visit Provider Clinical Nurse Specialist Family Health
DX: M51.16 Intervertebral disc disorders with radiculopathy, lumbar region (principal); Z45.1 Encounter for adjustment and management of infusion pump
CPT/HCPCS: 62368

== ENCOUNTER → 2021-01-13 12:31 | Outpatient (CLI) | payer MEDICARE, MEDICAID, SELFPAY ==
[2021-01-13 12:38] LABS: Adenovirus F 40/41, stool Not Detected (NotDetected); Astrovirus Not Detected (NotDetected); Campylobacter Not Detected (NotDetected); Clostridium Difficile A/B, PCR Not Detected (NotDetected); Cryptosporidium Not Detected (NotDetected); Cyclospora Cayetanesis Not Detected (NotDetected); Entamoeba histolytica Not Detected (NotDetected); Enteroaggregative E coli Not Detected (NotDetected); Enteropathogenic E coli Not Detected (NotDetected); Enterotoxigenic E coli Not Detected (NotDetected); Giardia lamblia Not Detected (NotDetected); Norovirus Not Detected (NotDetected); Plesimonas Shigalloides, PCR Not Detected (NotDetected); Rotavirus A Not Detected (NotDetected); Salmonella, PCR Not Detected (NotDetected); Sapovirus Not Detected (NotDetected); Shiga-like toxin E coli Not Detected (NotDetected); Shigella Enterovasive E coli Not Detected (NotDetected); Vibrio Cholerae Not Detected (NotDetected); Vibrio, PCR Not Detected (NotDetected); Yersinia Entercolitica, PCR Not Detected (NotDetected)
[2021-01-13 13:16] LABS: Basophils % 0.4 % (0.1-2.0); Eosinophils # 0.1 K/mm3 (0.0-0.4); Eosinophils % 0.8 % (0.1-12.0); Hematocrit 44.9 % (37.0-47.0); Hemoglobin 14.6 g/dL (12.2-16.2); Lymphocytes # 1.5 K/mm3 (0.7-4.5); Mean Corpuscular HGB Conc 32.4 g/dL (31.8-35.4); Mean Corpuscular Volume 89.6 fl (81-99); Mean Platelet Volume 7.9 fl (7.4-10.4); Monocytes # 0.5 K/mm3 (0.1-1.0); Monocytes % 4.3 % (1.7-9.3); Neutrophils # 9.2 K/mm3 (1.8-7.8); Neutrophils % 81.7 % (37.0-80.0); Platelet Count 574 K/mm3 (142-424); Red Blood Count 5.02 M/mm3 (4.20-5.40); Red Cell Distribution Width 16.7 % (11.5-17.5); White Blood Count 11.2 K/mm3 (4.8-10.8)
[2021-01-13 15:40] LABS: Alanine Aminotransferase 22 U/L (12-78); Albumin Level 4.3 g/dl (3.5-5.0); Albumin/Globulin Ratio 1.2 (1.1-1.8); Alkaline Phosphatase 124 U/L (38-126); Amylase 105 U/L (30-110); Anion Gap 12.2 mEq/L (5-15); Aspartate Amino Transferase 30 U/L (14-36); Bilirubin,Total 0.6 mg/dl (0.2-1.3); Blood Urea Nitrogen 13 mg/dl (7-17); Calcium 9.7 mg/dl (8.4-10.2); Carbon Dioxide 29 mmol/L (22.0-30.0); Chloride 100 mmol/L (98-107); Estimated Glomerular Filt Rate 46 ml/min (>60); GFR (African American) 56 ML/MIN (>60); Globulin 3.7 g/dL (1.3-3.2); Glucose 102 mg/dl (74-100); Lipase 140 U/L (23-300); Potassium 4.2 mmoL/L (3.5-5.1); Sodium 137 mmol/L (136-145)
== END ==
PROVIDERS: Visit Provider Nurse Practitioner Family
DX: R10.10 Upper abdominal pain, unspecified (principal); R11.2 Nausea with vomiting, unspecified; R19.7 Diarrhea, unspecified
CPT/HCPCS: 36415; 80053; 82150; 83690; 85025; 87506

== ENCOUNTER → 2021-02-09 08:40 | Outpatient (POV) | payer MEDICARE, MEDICAID, SELFPAY ==
[2021-02-09 08:46] VITALS: BP 178/88; PULSE 88; RESP 18; O2SAT 96; BMI 35.5
--- NOTE | 2021-02-09 09:37 | HMH.PMPROC ---
- Procedure Date: 02/09/21 Time: 09:37 Anesthesiologist:: MAXIMILIANO Goldman Complications:: None Pre-procedure Diagnosis:: Degenerative disc disease of the lumbar spine with lumbar radiculopathy symptoms Post-procedure Diagnosis:: Same Indications for Procedure:: Patient is a pleasant 55 year old female who presents today for intrathecal pain pump [refill] [and reprogram]. The patient is being treated for degenerative disc disease lumbar radiculopathy symptoms. Patient is currently being managed with Dilaudid 5 mg/mL at a rate of 0.6 mg/day and PTC boluses of 0.05 mg 6 times a day. Patient denies any side effects from his medication. Patient denies any change in location. Patient says that she is in the process of moving to a different house and she has been having more pain. She is wanting adjustments today. She is also taking Gabapentin 300mg TID that is prescribed by this clinic. She says that she was taking 600mg TID before her pain stimulator placement. She was wondering if we can increase her dose today. I discussed with the patient that she is already in a good dose of dilaudid and she'll be at risk of oversedation if we increase her dose. She says that she is only using her PTC 2-3 times a day. I reminded the patient that she can use her bolus a total of 6 times per day. Patient rates pain a 8 out of 10. Drug screen is appropriate. Andres [phone] with a morphine equivalent of 0. Physical exam General: Alert and oriented x3, no acute distress, pleasant and cooperative, [on room air] Lungs: Respirations even and unlabored, symmetrical chest expansion Eyes: PERRL Musculoskeletal: Flexion and extension of [lumbar] [spine] somewhat guarded secondary to pain, [antalgic gait noted] Neurological: Speech clear, no gross sensory deficit Procedure Details:: Informed consent was obtained and the risk and benefits of the procedure were explained to the patient. Patient was taken to the procedure room where noninvasive monitoring was placed including noninvasive blood pressure cuff and pulse oximeter. Patient's pump was interrogated and was reprogrammed to [Dilaudid 0.66mg/day and continued her PTC dose at 0.30mg/day]. The patient tolerated the procedure well with no complications. Plan and Disposition:: If patient has increased pain, we will consider increasing her Gabapentin 300mg TID to QID. We will see the patient back at the next refill. If the patient has any questions, contact the clinic.
[2021-02-09 16:34] LABS: Benzodiazepines Screen,Urine Negative ng/ml (<200)
[2021-02-09 16:35] LABS: Amphetamine/Metha Screen,Urine Negative ng/ml (<1000)
[2021-02-09 16:36] LABS: Barbiturates Screen,Urine Negative ng/ml (<200); Cannabinoid Screen,Urine Negative ng/ml (<50)
[2021-02-09 16:37] LABS: Cocaine Screen,Urine Negative ng/ml (<300); Methadone Screen,Urine Negative ng/ml (<300)
[2021-02-09 16:38] LABS: Opiate Screen,Urine Negative ng/ml (<300)
[2021-02-09 16:39] LABS: Phencyclidine Screen,Urine Negative ng/ml (<25)
[2021-02-26 21:27] LABS: Codeine Negative (Cutoff=100); Hydrocodone Negative (Cutoff=100); Hydromorphone Positive (.); Morphine Negative (Cutoff=100); Opiates Positive (.)
== END ==
PROVIDERS: Visit Provider Family Medicine
DX: M51.16 Intervertebral disc disorders with radiculopathy, lumbar region (principal); Z45.1 Encounter for adjustment and management of infusion pump; Z79.899 Other long term (current) drug therapy; Z88.0 Allergy status to penicillin; Z88.8 Allergy status to other drugs, medicaments and biological substances
CPT/HCPCS: 62368; 80305; 80361; 80365; G0480

== ENCOUNTER 2021-03-23 14:00 | Day surgery (SDC) | payer MEDICARE, MEDICAID, SELFPAY ==
[2021-03-23 14:10] VITALS: BP 155/74; PULSE 97; RESP 20; TEMP 35.9; O2SAT 98; BMI 35.6
--- NOTE | 2021-03-23 14:14 | HMH.PMPROC ---
- Procedure Date: 03/23/21 Time: 14:14 Anesthesiologist:: Beverly Garrett APRN Complications:: None Pre-procedure Diagnosis:: Degenerative disc disease lumbar spine with lumbar radiculopathy symptoms Post-procedure Diagnosis:: Same Indications for Procedure:: Patient is a 55-year-old white female who presents today for intrathecal pain pump refill and reprogram. Is currently being treated for degenerative disc disease of the lumbar spine with lumbar radiculopathy symptoms. Patient is currently being managed with Dilaudid 5 mg/mL at a rate of 0.66 mg/day with PTC boluses of 0.05 mg up to 6 times a day. Patient denies any side effects from these medications. Patient denies any change in location and type of pain. Patient rates her pain today as 8 out of 10. She is wanting an adjustment today. Patient is also taking gabapentin 300 mg 3 times a day. She denies any side effects from this medication and says that this is adequately helping her pain. Her Andres number is [id number] with an active morphine equivalent of 0. Physical exam General: Alert and oriented x3, no acute distress, pleasant and cooperative Lungs: Respirations even and unlabored, symmetrical chest expansion Eyes: PERRL Musculoskeletal: Flexion and extension of lumbar [spine] somewhat guarded secondary to pain, [antalgic gait noted] Neurological: Speech clear, no gross sensory deficit Procedure Details:: Informed consent was obtained and the risk and benefits of the procedure were explained to the patient. The patient was taken to the procedure room where noninvasive monitoring was placed including noninvasive blood pressure cuff and pulse oximeter. Patient's pump was interrogated. The area over the pump was cleansed with chlorhexidine as a cleansing solution. In sterile fashion the pump was accessed with a 22-gauge needle. Approximately 5.5 mls of the pump solution was removed and discarded appropriately. The pump was then refilled with 20 mL's of Dilaudid 5 mg/mL. The needle was withdrawn and a bandage was placed over the puncture site. The infusion rate was reprogrammed at Dilaudid 0.736 mg/day and continued her PTC dose as 0.5 mg up to 6 times a day.. The patient tolerated well with no complication. Plan and Disposition:: We will see the patient back in the clinic at the next intrathecal refill. Patient has been instructed to contact the clinic with any concerns before the next appointment. Dr. Canchola has reviewed this note and agrees with this plan of care. This note was dictated using voice recognition software and make contain errors or omissions. Risks and benefits of the medication have been explained in detail to the patient. The patient does understand the risk of dependence on the medication when given over a prolonged period. Patient has been advised of risks of oversedation with the prescribed medication. Narcan has been offered to the paitent in the event of oversedation. Patient has been advised that a family member should also be educated regarding administration of Narcan. The patient has been advised to consult with his/her primary care provider and pharmacist regarding drug-drug interaction of medications currently prescribed. ANDRES report has been obtained and reviewed prior to prescription and found to be appropriate. Opioid contract was reviewed and signed by the patient, and that they have agreed to all of the terms set forth by our compliance program. Patient has been instructed to contact the clinic with any concerns before the next appointment. Dr. Canchola has reviewed this note and agrees with this plan of care. This note was dictated using voice recognition software and make contain errors or omissions.
[2021-03-23 14:31] VITALS: BP 169/87; PULSE 88; RESP 18; O2SAT 98
[2021-03-23 14:34] VITALS: BP 168/86; PULSE 89; RESP 18; O2SAT 97
[2021-03-23 14:50] VITALS: BP 103/48; PULSE 82; RESP 20; O2SAT 96
== END 2021-03-23 14:50 | disposition home or self-care (01) ==
LOC: SC.PAINP 14:02
PROVIDERS: PCP Family Medicine; Visit Provider Clinical Nurse Specialist Family Health
DX: M51.16 Intervertebral disc disorders with radiculopathy, lumbar region (principal); Z45.1 Encounter for adjustment and management of infusion pump
CPT/HCPCS: 62370

== ENCOUNTER → 2021-04-14 15:34 | Outpatient (CLI) | payer MEDICARE, MEDICAID, SELFPAY ==
--- NOTE | 2021-04-14 15:34 | CT_ITS ---
FINAL REPORT TECHNIQUE: Axial CT images were performed from the lung apices through the upper abdomen. Coronal reformats were submitted. This study was performed with techniques to keep radiation doses as low as reasonably achievable (ALARA). Individualized dose reduction techniques using automated exposure control or adjustment of mA and/or kV according to the patient's size were employed. CLINICAL HISTORY: 6-month follow-up COMPARISON: 10/13/2020 FINDINGS: There is no axillary adenopathy. There is no hilar or mediastinal mass or adenopathy. Heart size is normal. There is no pericardial or pleural effusion. There is a 6 mm nodule in the medial right lower lobe, seen on image 53, which is stable. There are several less than 5 mm left lung nodules which are stable. There is no new mass or nodule. Limited images of the upper abdomen demonstrate a left adrenal nodule which is stable and may represent an adenoma. IMPRESSION: Stable small pulmonary nodules which are likely benign. If indicated, a 12 month follow-up chest CT may be beneficial. Reviewed, Interpreted and Dictated by Igor Nam III, MD Transcribed by Renetta Hairston Authenticated by Igor Nam III, MD on 04/14/2021 04:47:44 PM [facility]
== END ==
PROVIDERS: PCP Family Medicine; Visit Provider Internal Medicine Pulmonary Disease
DX: R91.8 Other nonspecific abnormal finding of lung field (principal)
CPT/HCPCS: 71250

== ENCOUNTER → 2021-05-18 11:36 | Outpatient (CLI) | payer MEDICARE, MEDICAID, SELFPAY ==
--- NOTE | 2021-05-18 11:51 | XR_ITS ---
FINAL REPORT CLINICAL HISTORY: UNABLE TO BEAR WEIGHT, LEFT ANTERIOR KNEE PAIN FINDINGS: LEFT KNEE: Three views of the left knee were obtained. There is no acute fracture or dislocation. Moderate degenerative changes are greatest at the patellofemoral joint. A small joint effusion is present. There are 2 probable loose bodies. Soft tissues are unremarkable. IMPRESSION: Moderate degenerative change with 2 probable loose bodies. Small joint effusion. Reviewed, Interpreted and Dictated by Igor Nam III, MD Transcribed by Don Anderson Authenticated by Igor Nam III, MD on 05/18/2021 02:07:17 PM [facility]
== END ==
PROVIDERS: PCP Nurse Practitioner Family; Visit Provider Nurse Practitioner Family
DX: M25.562 Pain in left knee (principal); M25.362 Other instability, left knee
CPT/HCPCS: 73562

== ENCOUNTER 2021-05-19 08:05 | Outpatient (RCR) | payer MEDICARE, MEDICAID, SELFPAY | END 2021-05-19 09:00 | disposition home or self-care (01) | LOC: PT 08:05 | PROVIDERS: Visit Provider Nurse Practitioner Family | DX: M25.562 Pain in left knee (principal); M25.362 Other instability, left knee; R26.89 Other abnormalities of gait and mobility | CPT/HCPCS: 97760 ==

== ENCOUNTER → 2021-05-28 10:53 | Outpatient (CLI) | payer MEDICARE, MEDICAID, SELFPAY | PROVIDERS: PCP Nurse Practitioner Family; Visit Provider Nurse Practitioner Family | DX: M25.562 Pain in left knee (principal); M25.362 Other instability, left knee ==

== ENCOUNTER → 2021-06-11 12:05 | Outpatient (CLI) | payer MEDICARE, MEDICAID, SELFPAY ==
--- NOTE | 2021-06-11 12:38 | MR_ITS ---
FINAL REPORT CLINICAL HISTORY: UNABLE TO BEAR WEIGHT ON LOWER EXTREMITY. pain inferior to patella and posterior knee pain. no injury or trauma. knee instability. COMPARISON: April 04, 2020 FINDINGS: Multi planar MR imaging was performed of the left knee. The anterior and posterior cruciate ligaments are intact. The quadriceps and patellar tendons are intact. There is linear signal in the posterior horn of the medial meniscus extending to the margin consistent with a meniscal tear. The lateral meniscus is intact. The medial and lateral collateral ligaments appear intact. The medial and lateral retinacula appear intact. There is mild narrowing of the lateral articular facet of the patella. There is grade 1-2 chondromalacia along the undersurface of the patella. There is a small joint effusion. IMPRESSION: Tear of the posterior horn of the medial meniscus. Grade 1-2 chondromalacia along the undersurface of the patella, similar. Small joint effusion. Reviewed, Interpreted and Dictated by Melvin Giles MD Transcribed by Don Anderson Authenticated by Melvin Giles MD on 06/11/2021 02:32:[address] [facility]
== END ==
PROVIDERS: PCP Nurse Practitioner Family; Visit Provider Nurse Practitioner Family
DX: M25.562 Pain in left knee (principal); M25.362 Other instability, left knee; R26.89 Other abnormalities of gait and mobility
CPT/HCPCS: 73721

== ENCOUNTER → 2021-07-23 10:13 | Outpatient (POV) | payer MEDICARE, MEDICAID, SELFPAY ==
[2021-07-23 10:38] VITALS: BP 136/59; PULSE 70; RESP 18; TEMP 36.2; O2SAT 96; BMI 51.5
--- NOTE | 2021-07-23 10:45 | HMH.PMPROC ---
- Procedure Date: 07/23/21 Time: 10:45 Anesthesiologist:: MAXIMILIANO Goldman Complications:: None Pre-procedure Diagnosis:: Degenerative disease of lumbar spine with lumbar radiculopathy symptoms Post-procedure Diagnosis:: Same Indications for Procedure:: Patient is a pleasant 55-year-old female who presents today for intrathecal pain pump reprogram. The patient is being treated for degenerative disease of lumbar spine with lumbar radiculopathy symptoms. Patient is currently being managed with Dilaudid 5 mg/mL at a rate of 0.7986 mg/day. Patient denies any side effects from this medication. Patient states that she has increase her activity but has been having worsening pain because of this. She would like an adjustment today. Patient rates pain a 4 out of 10. Drug screen is appropriate. Andres [phone] with an active morphine equivalent of 0 has been reviewed and is appropriate. Physical exam General: Alert and oriented x3, no acute distress, pleasant and cooperative Lungs: Respirations even and unlabored, symmetrical chest expansion Eyes: PERRL Musculoskeletal: Flexion and extension of lumbar [spine] somewhat guarded secondary to pain, [antalgic gait noted] Neurological: Speech clear, no gross sensory deficit Procedure Details:: Informed consent was obtained and the risk and benefits of the procedure were explained to the patient. Patient was taken to the procedure room where noninvasive monitoring was placed including noninvasive blood pressure cuff and pulse oximeter. Patient's pump was interrogated and was reprogrammed to Dilaudid 0.96 mg/day. The patient tolerated the procedure well with no complications. Plan and Disposition:: We will see the patient back in the clinic at the next intrathecal refill. Patient has been instructed to contact the clinic with any concerns before the next appointment. Dr. Canchola has reviewed this note and agrees with this plan of care. This note was dictated using voice recognition software and make contain errors or omissions.
== END ==
PROVIDERS: Visit Provider Student in an Organized Health Care Education/Training Program
DX: M51.16 Intervertebral disc disorders with radiculopathy, lumbar region (principal)
CPT/HCPCS: 62368; 99213; G0463

== ENCOUNTER 2021-08-03 12:36 | Emergency (ER) | payer MEDICARE, MEDICAID, SELFPAY ==
--- NOTE | 2021-08-03 12:27 | ECG_ITS ---
APPROVED REPORT Exam: Resting ECG HR:80 bpm ECG Measurements Heart Rate 80 AXES ME 151 P 33 QRSd 101 QRS -41 QT 327 T 32 QTc 363 Conclusion SINUS RHYTHM LEFT AXIS DEVIATION [QRS AXIS < -30] LOW QRS VOLTAGE IN PRECORDIAL LEADS [QRS DEFLECTION < 1.0 mV IN CHEST LEADS] Late R wave progression ABNORMAL ECG UNCONFIRMED REPORT Electronically signed by : Dandy Del Toro MD 08/05/2021 14:45:56
[2021-08-03 12:36] VITALS: BP 132/77; PULSE 84; RESP 12; TEMP 36.5; O2SAT 97; BMI 51.3
--- NOTE | 2021-08-03 12:40 | XR_ITS ---
FINAL REPORT CLINICAL HISTORY: cough, pain in chest, SOA , pt states symptoms started a fews days ago and have worsened since. COMPARISON: April 04, 2020 FINDINGS: A single portable view of the chest was obtained. The heart size and pulmonary vascularity are within normal limits. The mediastinum is within normal limits. There are worsening right lung opacities, worrisome for pneumonia. The bony thorax is intact. IMPRESSION: Findings worrisome for pneumonia. Reviewed, Interpreted and Dictated by Igor Nam III, MD Transcribed by Elda Polanco Authenticated and . [facility]
[2021-08-03 12:47] LABS: Basophils # 0.2 K/mm3 (0-0.2); Basophils % 1.2 % (0.1-2.0); Eosinophils # 0.2 K/mm3 (0.0-0.4); Eosinophils % 1.6 % (0.1-12.0); Hematocrit 42.5 % (37.0-47.0); Hemoglobin 14.2 g/dL (12.2-16.2); Lymphocytes # 1.7 K/mm3 (0.7-4.5); Lymphocytes % 13.7 % (10-50); Mean Corpuscular HGB Conc 33.5 g/dL (31.8-35.4); Mean Corpuscular Volume 89.5 fl (81-99); Mean Platelet Volume 7.5 fl (7.4-10.4); Monocytes # 0.7 K/mm3 (0.1-1.0); Monocytes % 5.4 % (1.7-9.3); Neutrophils # 9.9 K/mm3 (1.8-7.8); Neutrophils % 78.2 % (37.0-80.0); Platelet Count 514 K/mm3 (142-424); Red Blood Count 4.74 M/mm3 (4.20-5.40); White Blood Count 12.7 K/mm3 (4.8-10.8)
[2021-08-03 12:51] LABS: Potassium 3.8 mmoL/L (3.5-5.1); Sodium 136 mmol/L (136-145)
[2021-08-03 12:53] LABS: Alanine Aminotransferase 27 U/L (12-78); Alkaline Phosphatase 110 U/L (38-126); Aspartate Amino Transferase 31 U/L (14-36); Bilirubin,Total 0.6 mg/dl (0.2-1.3); Blood Urea Nitrogen 23 mg/dl (7-17); Estimated Glomerular Filt Rate 57 ml/min (>60); GFR (African American) 69 ML/MIN (>60)
[2021-08-03 12:54] LABS: Albumin Level 4.2 g/dl (3.5-5.0); Calcium 9.5 mg/dl (8.4-10.2); Carbon Dioxide 27 mmol/L (22.0-30.0); Globulin 4.3 g/dL (1.3-3.2); Glucose 100 mg/dl (74-100); Lipase 102 U/L (23-300); Total Protein,Serum 8.5 g/dl (6.3-8.2)
[2021-08-03 13:03] LABS: NT Pro Brain Natriuretic Pep. 76.3 pg/mL (0-125)
[2021-08-03 13:09] LABS: Troponin I < 0.01 ng/ml (0.00-0.034)
--- NOTE | 2021-08-03 13:22 | HMH.EDCP ---
ED Disposition Clinical Impression: Nonspecific chest pain Disposition: Home, Self-Care Condition on Discharge: Good Instructions: DI for Atypical Chest Pain Referrals: Provider,MD Marisol [Primary Care Provider] - Fransico Zheng MD [Staff Physician] - - Critical Care Critical Care Time: No Attestation: On 08/03/21, the high probability of a clinically significant, sudden or life threatening deterioration of the following system(s) required my full and direct attention, intervention and personal management. The time I documented below is in addition to time spent performing reported procedures but includes the following listed in this critical care notation. Medical Decision Making - Medical Records Medical records reviewed: Yes: I reviewed the patient's medical records. - Andres Inquiry Pt receiving controlled substance: No Andres was queried for this patient: No Vital Signs: 08/03/21 12:36 08/03/21 13:30 08/03/21 15:35 Temperature 97.7 F Temperature Source Oral Pulse Rate 72 73 Pulse Rate [Left Radial] 84 Respiratory Rate 12 18 16 Blood Pressure 116/74 100/60 L Blood Pressure [Right Arm] 132/77 Blood Pressure Mean [Right Arm] 95 Blood Pressure Source [Right Arm] Automatic Cuff Blood Pressure Position [Right Arm] Sitting 02 Sat by Pulse Oximetry 97 94 L 98 Oxygen Delivery Method Room Air Room Air - Lab Data Lab Results 08/03/21 12:37: WBC 12.7 H, RBC 4.74, Hgb 14.2, Hct 42.5, MCV 89.5, MCH 30.0, MCHC 33.5, RDW 17.0, Plt Count 514 H, MPV 7.5, Neut % (Auto) 78.2, Lymph % (Auto) 13.7, [place] % (Auto) 5.4, Eos % (Auto) 1.6, Baso % (Auto) 1.2, Neut # (Auto) 9.9 H, Lymph # (Auto) 1.7, [place] # (Auto) 0.7, Eos # (Auto) 0.2, Baso # (Auto) 0.2 08/03/21 12:37: Sodium 136, Potassium 3.8, Chloride 100, Carbon Dioxide 27, Anion Gap 12.8, BUN 23 H, Creatinine 1.00, Estimated GFR 57 L, Est GFR ( Amer) 69, Glucose 100, Calcium 9.5, Total Bilirubin 0.6, AST 31, ALT 27, Alkaline Phosphatase 110, Troponin I < 0.01, NT-Pro-B Natriuret Pep 76.3, Total Protein 8.5 H, Albumin 4.2, Globulin 4.3 H, Albumin/Globulin Ratio 1.0 L, Lipase 102 08/03/21 15:35: Troponin I < 0.01 Result diagrams: 08/03/21 12:37 08/03/21 12:37 Orders (Tests/Meds): ORDERS Category Date Time Status Troponin I Q3H Lab 08/03/21 18:45 Ordered - Radiology Data #1 Image(s): Chest Image Reviewed: Yes I reviewed the patient's radiology results, Yes I reviewed the patient's radiology image, Yes I have reviewed radiologist's interpretation Preliminary Findings: Normal/NAD - ECG Data Tracing #1 I reviewed this ECG and interpreted as documented below: No ventricular rate 80 bpm, AK interval 151 ms, normal QTC. Sinus rhythm with nonspecific changes. ECG initial impression date: 08/03/21 ECG initial impression time: 12:27 - Reevaluation(s) Time: 16:16 Reevaluation #1: On reevaluation, patient is feeling better. Troponin is negative. Cardiology evaluated patient. They will arrange for outpatient stress testing. Patient given strict return precautions. Verbalized understanding. Medical Decision Narrative: 55-year-old female presented to the emergency department with some nonspecific chest pain. Subacute nature. Do believe patient's symptoms most consistent with dyspepsia versus atypical chest pain. Work-up initiated. Chest Pain HPI - General Chief Complaint: Chest Pain Stated Complaint: chest pain Time Seen by Provider: 08/03/21 12:40 Mode of Arrival: Ambulatory Limitations: No Limitations Description of Symptoms (Recalled from ER Triage Doc. by RN): c/o chest pain that goes into left breast, back with nausea - History of Present Illness HPI narrative: 55-year-old female presented to the emergency department with some chest discomfort. The patient does have a history of heart failure. States that for the last 4 days she started having some discomfort in the chest. It is a dull substerna
[2021-08-03 13:30] VITALS: BP 116/74; PULSE 72; RESP 18; O2SAT 94
--- NOTE | 2021-08-03 13:59 | HMH.CNCARD ---
History of Present Illness Consult date: 08/03/21 Requesting physician: Gareth Harrington Consult reason: chest pain Chief complaint: chest pain History of present illness: This is a 55-year-old white female who presented to the emergency department complaints of chest pain. The patient states that she started having chest pain last Tuesday. She states that after she gave her dogs above she started having a dull sensation in the substernal aspect of her chest. It was associated with some nausea and shortness of breath. The patient states that it did radiate to her left arm a little bit. The patient states that she decided to rest and the pain did improve. She states that it has gotten significantly better over the last 4 days but she is still having a little bit of pain today but nowhere near as bad as it was on Tuesday. She states that she called the cardiology clinic today and was instructed to go to the emergency department. Her initial troponin is negative. She states that her pain has improved. She did have a stress echocardiogram last year which showed no ischemia but she had very poor exercise capacity and repeat Myoview stress testing was recommended which has not been completed at this time. She denies any fever, chills, nausea, vomiting, diarrhea, PND or orthopnea. [facility] History I have reviewed the patient's past medical history: Yes Medical History: Reports:: Anxiety, Asthma, Congestive Heart Failure, Depression, Gastroesophageal Reflux Disease(GERD), Hyperlipidemia, Hypertension, Migraine Denies:: Cancer, Diabetes Mellitus Type 1, Diabetes Mellitus Type 2, Internal Pacemaker, Lung Disease, MRSA, Seizures *Have you ever received a pneumonia vaccine?: Yes *Have you received a flu vaccine this season?: Yes Other Medical History: Reports: Arthritis, Glaucoma, Hormone Therapy, Hypothyroidism, Thyroid Disease. Denies: Blood Transfusion Reaction Laterality Cases: Right: Arthroscopy Knee, Bilateral: Other Other Surgeries: Yes: Cholecystectomy, Colonoscopy, EGD, Hysterectomy-Total, Other. No: Pacemaker Amputation: No Fractures: Yes (LEFT WRIST) - *Social History Smoking Status: Never smoker Alcohol Intake: never Alcohol Intake Frequency:: other Substance Use Type: denies use *Occupational Status:: unemployed Housing: house Household Members: spouse *Travel in the last 8 weeks: None - Psychiatric History Pschychiatric History:: Reports:: Anxiety, Depression Family Hx:: Other Meds Home Medications Medication Instructions Recorded Confirmed Type buspirone 10 mg tablet 10 mg PO DAILY 30 Days tab 09/19/17 07/23/21 History linaclotide 72 mcg capsule 72 mcg PO DAILY 30 Days cap 09/19/17 07/23/21 History Fluticasone Propionate 44 mcg NOSTRIL-B DAILY 03/06/19 07/23/21 History [Fluticasone Hfa 44mcg Inhaler] Levothyroxine Sodium 137 mcg PO DAILY 03/06/19 07/23/21 History [Levothyroxine 137mcg (0.137mg) Tab] Montelukast Sodium 10 mg PO DAILY 04/30/20 07/23/21 History Ropinirole HCl 0.5 mg PO HS 06/25/20 07/23/21 History Hydromorphone HCl/Pf [Dilaudid 0.15 mg IT CONT PRN 07/31/20 07/23/21 History 1mg/ml inj] bupropion HCl 150 mg tablet,12 hr 150 mg PO DAILY each 09/05/20 07/23/21 History sustained-release esomeprazole magnesium 40 mg 40 mg PO DAILY cap 09/05/20 07/23/21 History capsule,delayed release prucalopride 2 mg tablet 2 mg PO DAILY tab 09/05/20 07/23/21 History Aspirin [Low Dose Aspirin EC] 81 mg PO DAILY 09/15/20 07/23/21 History dicyclomine 10 mg capsule 10 mg PO BID 09/29/20 07/23/21 History latanoprost 0.005 % eye drops 0.005 drp OPHTHALMIC DIRECTED 09/29/20 07/23/21 History Cyclobenzaprine HCl [Flexeril 10mg 10 mg PO TID 11/03/20 07/23/21 History tablet] estradiol 2 mg tablet 2 mg PO DAILY 90 Days #90 tab 02/25/21 07/23/21 Rx Gabapentin 300 mg PO TID 03/23/21 07/23/21 History ascorbate calcium (vitamin C) 500 500 mg PO DAILY 07/08/21 07/23/21 History mg tablet atorvastatin 40 mg tablet 40
[2021-08-03 15:35] VITALS: BP 100/60; PULSE 73; RESP 16; O2SAT 98
--- NOTE | 2021-08-03 15:37 | PC.NURSE ---
Rounded on patient at this time. Given glass of water, family member at bedside. Updated her on POC. No new needs at this time.
[2021-08-03 15:42] LABS: Anion Gap 12.8 mEq/L (5-15); Chloride 100 mmol/L (98-107)
--- NOTE | 2021-08-03 16:08 | PC.NURSE ---
called lab to check on 2nd troponin, advised 4 more mins. Updated patient and MD
[2021-08-03 16:11] LABS: Troponin I < 0.01 ng/ml (0.00-0.034)
[2021-08-03 16:25] VITALS: BP 118/70; PULSE 70; RESP 16; TEMP 36.8; O2SAT 98
== END 2021-08-03 16:26 | disposition home or self-care (01) ==
PROVIDERS: Emergency Provider Emergency Medicine
DX: R07.2 Precordial pain (principal); R10.13 Epigastric pain; M54.9 Dorsalgia, unspecified; R42 Dizziness and giddiness; R94.30 Abnormal result of cardiovascular function study, unspecified; R00.1 Bradycardia, unspecified; R53.82 Chronic fatigue, unspecified; R11.0 Nausea; I11.0 Hypertensive heart disease with heart failure; I50.9 Heart failure, unspecified; I25.10 Atherosclerotic heart disease of native coronary artery without angina pectoris; K21.9 Gastro-esophageal reflux disease without esophagitis; E78.5 Hyperlipidemia, unspecified; E03.9 Hypothyroidism, unspecified; G43.909 Migraine, unspecified, not intractable, without status migrainosus; M19.90 Unspecified osteoarthritis, unspecified site; H40.9 Unspecified glaucoma; E66.01 Morbid (severe) obesity due to excess calories; F41.9 Anxiety disorder, unspecified; Z79.51 Long term (current) use of inhaled steroids; Z79.82 Long term (current) use of aspirin; Z79.890 Hormone replacement therapy; Z79.899 Other long term (current) drug therapy; Z68.43 Body mass index [BMI] 50.0-59.9, adult; Z87.891 Personal history of nicotine dependence
CPT/HCPCS: 71045; 80053; 83690; 83880; 84484; 85025; 93005; 99284

== ENCOUNTER 2021-08-06 10:00 | Outpatient (RCR) | payer MEDICARE, MEDICAID, SELFPAY ==
--- NOTE | 2021-07-06 11:29 | HMH.PTOPEV ---
PT Outpatient Evaluation Rehab PT Outpatient Evaluation Start: 07/06/21 10:28 Freq: Status: Active Protocol: Document 07/06/21 10:28 SUZETTE (Rec: 07/06/21 11:29 SUZETTE [id number]) Electronically Signed By Merly Haney, HARRIS 07/06/21 10:28 Outpatient Therapy Subjective History Subjective History Pt is a 55 y/o female that reports chronic left knee pain with onset about a year ago. Pt reports initial LANNY was playing with grandson on the floor and standing up with feeling a pop in the leg. Pt reports she had PT for a few weeks without improvements. Pt reports recent reinjury in February of this year with a pop in the front of the knee while going from sit to stand. Pt reports she had an xray and MRI at [facility] with report of a torn medial meniscus and arthritis of the knee/patella. Pt reports she recently received an injection which did not help and discussed surgery with the doctor if conservative care is not helpful. Pt reports she was told she needs to lose ~20 lbs before having surgery if indicated. Pt reports she occasionally uses a quad cane while walking due to knee pain . Pt reports intermittent clicking/catching in the knee and constant swelling since the injury. Pt reports she returns to her MD in 6 weeks. Occupation: Disabled, not working Comorbidites: CHF, hypertension, GERD, hyperlipidemia, hypothyroidism Chief Complaint Pain,Stiff,Clicks,Swelling, Catches/Locks Symptom Type Ache,Dull Symptoms Relieved By Rest/Positioning,Ice Symptoms Aggravated By Standing,Bending/Stooping, Physical Activity,Walking Prior Functional Limitations None Current Functional Limitations Housework,Sleeping,Standing,
--- NOTE | 2021-08-05 15:59 | HMH.RHREAS ---
Rehab Reassessment Rehab OP Re-assessment Start: 08/04/21 08:00 Freq: Status: Active Protocol: Document 08/04/21 08:01 SUZETTE (Rec: 08/04/21 11:26 SUZETTE [id number]) Electronically Signed By Merly Haney PT 08/04/21 08:01 Rehab Re-assessment Subjective Subjective Pt reports she is now able to walk for 10 minutes without increased pain, kneel in the floor without pain using grab bars to stand, and worse pain rated 8/10 within the past week. Pt reports she is still having pain in the back of the leg mostly at night with muscle spasms. Pt reports she has improved ~40% since starting PT. Pt reports she feels that PT is helping a little bit and would like to continue. Objective Objective Notes L knee AROM: 0-115 MMT: R&L hip flex flex 4/5, knee flex 4+/5, hip abd/ext 4/ 5 Mild TTP of the lateral/medial joint lines and patellar tendon Assessment Progress Assessment Progressing as Expected Assessment Notes With consideration of pt's chronic pain, arthritis and overweight pt is progressing as expected. Patient goals met STG 09/21 Goals Not Met LTG Plan Plan Continue POC Frequency of Therapy 2 Duration of therapy 4 Time and Billing Re-Eval Time 15 Re-Eval Billing Units 1 PHYSICIAN CERTIFICATION: I certify the specified therapy services for Kenna Bergman are required, authorized, and reviewed every 30 days.
== END 2021-08-06 10:05 | disposition home or self-care (01) ==
LOC: PT 10:00
PROVIDERS: PCP Nurse Practitioner Family; Visit Provider Orthopaedic Surgery
DX: M17.12 Unilateral primary osteoarthritis, left knee (principal)
CPT/HCPCS: 97010; 97014; 97110; 97112; 97140; 97163; 97164; 97530; G0283

== ENCOUNTER → 2021-08-07 10:50 | Outpatient (CLI) | payer MEDICARE, MEDICAID, SELFPAY | PROVIDERS: PCP Nurse Practitioner Family; Visit Provider Internal Medicine Cardiovascular Disease | DX: E78.2 Mixed hyperlipidemia (principal); G47.33 Obstructive sleep apnea (adult) (pediatric); I25.118 Atherosclerotic heart disease of native coronary artery with other forms of angina pectoris; R06.00 Dyspnea, unspecified; R07.89 Other chest pain; R42 Dizziness and giddiness; R60.9 Edema, unspecified | CPT/HCPCS: 93270 ==

== ENCOUNTER 2021-08-21 09:54 | Day surgery (SDC) | payer MEDICARE, MEDICAID, SELFPAY ==
[2021-08-21 09:59] VITALS: BP 115/52; PULSE 83; RESP 18; TEMP 36.4; O2SAT 98; BMI 51.5
[2021-08-21 10:14] VITALS: BP 131/94; PULSE 77; RESP 20; O2SAT 98
--- NOTE | 2021-08-21 10:27 | P.PCN_ITS ---
- Procedure Date: 08/21/21 Time: 10:27 Anesthesiologist:: Pee Lambert CRNA Complications:: None Pre-procedure Diagnosis:: Degenerative disc disease lumbar spine multilevels. Lumbar radiculopathy symptoms. Post-procedure Diagnosis:: Same. Indications for Procedure:: Patient is a pleasant 55-year-old female that comes our injection clinic today for intrathecal pain pump refill. Patient is doing quite well with her intrathecal pain pump. She reports being able to get out into the garden and do more housework. This is with minimal pain. She does realize PTC. Patient asking for a small increase today in her pump due to some extra pain she is having while tending to her garden. We can increase her to 20% today. Procedure Details:: Details of the procedure were explained to the patient. The patient was taken the procedure room placed in the sitting position. The area of the intrathecal pain pump was cleansed using chlorhexidine as a cleansing solution. Using a 25- gauge needle the pump was accessed with ease. 5.8 mL of solution was withdrawn and discarded appropriately. The pump was then filled with 20 cc of Dilaudid 5 mg/mL. Patient was running at 0.96 mg/day. We will increase her 20% to 1.15 mg/day. Plan and Disposition:: Patient was discharged without incident.
[2021-08-21 10:28] VITALS: BP 120/66; PULSE 76; RESP 20; O2SAT 97
== END 2021-08-21 10:29 | disposition home or self-care (01) ==
LOC: SC.PAINP 09:56
PROVIDERS: PCP Nurse Practitioner Family; Visit Provider Nurse Anesthetist, Certified Registered
DX: M51.16 Intervertebral disc disorders with radiculopathy, lumbar region (principal); Z45.1 Encounter for adjustment and management of infusion pump
CPT/HCPCS: 95991

== ENCOUNTER → 2021-08-25 07:41 | Outpatient (CLI) | payer MEDICARE, MEDICAID, SELFPAY ==
--- NOTE | 2021-08-25 07:41 | NM_ITS ---
APPROVED REPORT Exam: Nuclear Stress Test Indication: Chest pain, SOB, HTN, High cholesterol, Family history Patient Location: Outpatient Stress Tech: Lindsey BRAVO Tech:Karla Hodges, ARRT, RT (R)(N) Ht: 5 ft 11 in Wt: 372 lbs Bra Size: DDD HR: 70 bpm BP: 108/46 mmHg BSA: 2.74 m2 TID: 1.16 BMI: 51.8 History: Chest pain, SOB, HTN, High cholesterol, Family history Procedure: Patient received a 0.4 mg of intravenous Lexiscan, resting heart rate 70 bpm, resting blood pressure 108/46 mmHg, with Lexiscan maximum heart rate achived was 90 bpm which is Less than 85 % of the maximum predicted heart rate and blood pressure was 116/62 mmHg. With Lexiscan, patient denied any complaint of chest pain. Electrocardiogram Resting electrocardiogram shows sinus rhythm, low voltage QRS complexes, poor R wave progression. With Lexiscan there is less than 1.[address] segment depression noted from the baseline EKG. The EKG portion of the Lexiscan is nondiagnostic. Cardiac Stress and Resting SPECT Images: Cardiac Stress and Resting SPECT images were obtained using technetium 99m Myoview 32.5 mCi stress and 10.56 mCi at rest. Gated SPECT for analysis of segmental wall motion and calculation of the ejection fraction also done. Cardiac stress and rest SPECT images show uniform myocardial activity without segmental perfusion abnormality, computer derived ejection fraction is 63% with no regional wall motion abnormality, right ventricle is normal size and contractility. Conclusion: 1. The EKG portion of the Lexiscan is nondiagnostic. 2. No scintigraphic evidence of reversible ischemia seen, compared to ejection fraction 63% with no regional wall motion abnormality, right ventricle is normal size and contractility. 3. Normal Lexiscan Myoview study. Electronically signed by : Bar Alexis MD 08/25/2021 20:00:34
--- NOTE | 2021-08-25 07:41 | CA_ITS ---
APPROVED REPORT Exam: Pharmacologic Technologist: Lindsey Elizalde, Ht: 5 ft 11 in Wt: 374 lbs BSA: 2.75 m2 HR: 66 bpm BP: 108/46 mmHg Rhythm: NSR, low voltage QRS, poor R wave progression Medical History Medical History: HTN, Hyperlipidemia Medications: Aspirin,,,,, Gabapentin,,,,, Atorvastatin,,,,, Buspirone,,,,, Estradial,,,,, Montelukast,,,,, DicyCLOMINE,,,,, Cyclobenzaprine,,,,, SpirOnolactone,,,,, LevothRYROXINE,,,,, EsMEPRAZOLE,,,,, Ropinerole,,,,, Cardiac Risk Factors: HTN, , Hyperlipidemia, Smoking Stress Test Details Test: LEXISCAN HR Resting HR: 70 bpm Max Heart Rate (APMHR): 163.683901 bpm Max HR Achieved: 90 bpm Target HR (85% APMHR): 138.168995 bpm % of APMHR: 55.21 Recovery HR: 74 bpm BP Resting BP: 108/46 mmHg Max BP: 116/62 mmHg Recovery BP: 114.0/53.0 mmHg ECG Resting ECG: NSR, low voltage QRS, poor R wave progression Clinical Exercise duration: 04:00 min Highest Stage Achieved: Stress ECG Conclusion During lexiscan pt experinced mild SOA, briefly light headed, mild head discomfort. No CP noted. No arrhythmias noted. No significant ST changes. Unremarkable lexiscan stress. Myoview images reported separately. Electronically signed by : Bar Alexis MD 08/25/2021 19:56:10
--- NOTE | 2021-08-25 09:21 | HMH.ITSHM ---
Current Home Medications as stated by this patient Kenna Bergman or litigation claim representative. []LEVOTHYROXINE GABAPENTIN FLUTICASONE FAMOTIDINE FLEXERIL ZINC SPIRONOLACTONE PRUCALOPIDE MULTIVITAMIN MELATONIN LISINOPRIL LINACLOTIDE LATANOPROST FUROSEMIDE ESTRADIOL ESOMEPRAZOLE DICYCLOMINE BUSPIRONE BUPROPION ATORVASTATIN VITAMIN C ROPINIROLE MONTLUKAST ASA
== END ==
PROVIDERS: PCP Nurse Practitioner Family; Visit Provider Internal Medicine Cardiovascular Disease
DX: E78.2 Mixed hyperlipidemia (principal); G47.33 Obstructive sleep apnea (adult) (pediatric); I25.118 Atherosclerotic heart disease of native coronary artery with other forms of angina pectoris; R06.00 Dyspnea, unspecified; R07.89 Other chest pain; R42 Dizziness and giddiness
CPT/HCPCS: 78452; 93017; A9502; J2785

== ENCOUNTER 2021-10-13 13:31 | Day surgery (SDC) | payer MEDICARE, MEDICAID, SELFPAY ==
[2021-10-13 13:48] VITALS: BP 123/54; PULSE 71; RESP 20; TEMP 36.4; O2SAT 98; BMI 51.5
[2021-10-13 14:30] VITALS: BP 137/54; PULSE 79; RESP 18
[2021-10-13 14:32] VITALS: BP 137/56; PULSE 80; RESP 18; O2SAT 99
--- NOTE | 2021-10-13 14:37 | EXP.PAIN.PRO ---
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 We are currently treating the patient for degenerative disc disease of the lumbar spine multilevels with lumbar radiculopathy symptoms. She is currently managed with Dilaudid 5 mg/mL with 1.15 mg/day. Patient denies any side effects from this medications. She states these medications are helping with her pain symptoms. Her Andres is [phone]. It has been reviewed and appropriate. Physical exam General: Alert and oriented x3 no acute distress, pleasant and cooperative on room air Lungs: Respirations even and unlabored, symmetrical chest expansion Eyes: PERRL Musculoskeletal: Flexion and extension of lumbar spine somewhat guarded secondary to pain, antalgic gait noted Neurologic: Speech clear, no gross sensory deficit Procedure Details:: Informed consent was obtained and the risk and benefits of the procedure were explained to the patient. The patient was taken to the procedure room where noninvasive monitoring was placed on the patient including a noninvasive blood pressure cuff and pulse oximeter. Patient's pump was interrogated. The area over the pump was cleansed with a chlorhexidine as a cleansing solution. In a sterile fashion the pump was accessed using a 22-gauge needle. From the interrogation of the system 6mL of solution was expected. Approximately 5.8 mL of solution was removed and discarded appropriately. The pump was then refilled with 20 mL of Dilaudid 10 mg/mL. The needle was withdrawn and a bandage was placed over the puncture site. The infusion rate was increased by 10% to Dilaudid 1.265 mg/day. The patient tolerated the procedure well with no complication. Plan and Disposition:: We will see the patient back in clinic at the next intrathecal refill. Patient has been instructed to contact the clinic with any concerns before the next appointment. Dr. Canchola has reviewed this note and agrees with this plan of care. This note was dictated using voice recognition software and may contain errors or omissions.
[2021-10-13 14:50] VITALS: BP 131/76; PULSE 69; RESP 20; O2SAT 97
== END 2021-10-13 14:50 | disposition home or self-care (01) ==
PROVIDERS: PCP Nurse Practitioner Family; Visit Provider Nurse Anesthetist, Certified Registered
DX: M51.16 Intervertebral disc disorders with radiculopathy, lumbar region (principal)
CPT/HCPCS: 62370

== ENCOUNTER → 2021-10-15 14:09 | Outpatient (CLI) | payer MEDICARE, MEDICAID, SELFPAY ==
--- NOTE | 2021-10-15 14:12 | MM_ITS ---
PROCEDURE INFORMATION: Exam: Bilateral Screening 3D Mammography Exam date and time: 10/15/2021 2:04 PM Age: 56 years old Clinical indication: Screening examination TECHNIQUE: Imaging protocol: Bilateral Screening tomosynthesis and 2D mammography including computer-aided detection (CAD) when performed. COMPARISON: [facility] DIG MAMM-SCREEN VERNA 12/17/2015 10:26 AM FINDINGS: MAMMOGRAPHY: Breast composition: The breasts are almost entirely fatty. Mass: None. Architectural distortion: None. Calcifications: No suspicious calcifications. Asymmetric density: None. Skin thickening: None. Axillary adenopathy: None. IMPRESSION: No mammographic evidence of malignancy. Annual screening is recommended unless otherwise clinically indicated. ASSESSMENT: BI-RADS Category 1: Negative
== END ==
PROVIDERS: PCP Nurse Practitioner Family; Visit Provider Nurse Practitioner Family
DX: Z12.31 Encounter for screening mammogram for malignant neoplasm of breast (principal)
CPT/HCPCS: 77063; 77067

== ENCOUNTER → 2021-10-27 10:34 | Outpatient (CLI) | payer MEDICARE, MEDICAID, SELFPAY ==
--- NOTE | 2021-10-27 10:40 | XR_ITS ---
FINAL REPORT CLINICAL HISTORY: right knee pain FINDINGS: 4 weight-bearing views of the right knee were obtained. There is no acute fracture or dislocation. There are moderate to severe degenerative changes greatest in the patellofemoral compartment. There is a chronic calcification superior and lateral to the patella. IMPRESSION: Moderate to severe degenerative changes. Reviewed, Interpreted and Dictated by Igor Nam III, MD Transcribed by Don Anderson Authenticated and [facility]
== END ==
PROVIDERS: PCP Nurse Practitioner Family; Visit Provider Orthopaedic Surgery
DX: M25.561 Pain in right knee (principal)
CPT/HCPCS: 73564

== ENCOUNTER 2021-11-08 13:18 | Emergency (ER) | payer MEDICARE, MEDICAID, SELFPAY ==
[2021-11-08 13:55] VITALS: BP 101/55; PULSE 88; RESP 20; TEMP 36.9; O2SAT 96; BMI 51.5
--- NOTE | 2021-11-08 14:12 | EXP.UTC ---
Discharge Plan Disposition Patient Disposition: Home, Self-Care Condition: Good Prescriptions Prescriptions: New promethazine-DM 6.25-15 mg/5 mL Syrup 5 ml PO Q6H PRN (Reason: Cough) Qty: 240 0RF benzonatate [benzonatate] 100 mg capsule 100 mg PO TIDP PRN (Reason: Cough) Qty: 30 0RF ondansetron 4 mg Tablet,Disintegrating 4 mg PO Q8H PRN (Reason: Nausea) Qty: 20 0RF methylprednisolone 4 mg Tablets,Dose Pack 4 mg PO DIRECTED Qty: 21 0RF No Action linaclotide 72 mcg capsule 72 mcg PO DAILY 30 Days buspirone 10 mg tablet 10 mg PO DAILY 30 Days bupropion HCl 150 mg tablet sustained-release 12 hr 150 mg PO DAILY Motegrity 2 mg tablet 2 mg PO DAILY esomeprazole magnesium 40 mg capsule,delayed release(DR/EC) 40 mg PO DAILY multivitamin Tablet 1 tab PO DAILY ascorbate calcium (vitamin C) 500 mg tablet 500 mg PO DAILY Galzin 25 mg (zinc) capsule 25 mg PO DAILY melatonin 10 mg capsule 10 mg PO HS PRN (Reason: Sleep) atorvastatin 40 mg tablet 40 mg PO DAILY Qty: 90 3RF lisinopril-hydrochlorothiazide 20-12.5 mg tablet 1 tab PO DAILY Qty: 90 3RF spironolactone 50 mg tablet 50 mg PO DAILY Qty: 90 3RF furosemide 80 mg tablet 40 mg PO BID Qty: 180 3RF dicyclomine 10 mg capsule 10 mg PO BID latanoprost 0.005 % drops 0.005 drp OPHTHALMIC DIRECTED estradiol 2 mg tablet 2 mg PO DAILY 90 Days Qty: 90 4RF Rx Instructions: Pt will need to make an appointment with Dr Alaniz before any refills levothyroxine 137 MCG tablet 137 mcg PO DAILY fluticasone propionate 44 MCG HFA aerosol inhaler 44 mcg NOSTRIL-B DAILY ropinirole 0.5 MG tablet 0.5 mg PO HS Rx Instructions: one to two tabs at night time hydromorphone (PF) 1 MG/ML syringe 0.15 mg IT CONT PRN (Reason: chronic pain) Rx Instructions: medication adminstered via intrathecal pain pump. total volume of pump is 20ml. famotidine 20 MG tablet 20 mg PO DAILY montelukast 10 MG tablet 10 mg PO DAILY aspirin 81 MG tablet,delayed release (DR/EC) 81 mg PO DAILY cyclobenzaprine 10 MG tablet 10 mg PO TID gabapentin 300 MG capsule 300 mg PO TID Referrals Follow up/Referrals: Gita Muhammad APRN [Primary Care Provider] - See instructions Activity Restrictions/Add. Instructions Additional Instructions/Restrictions: Drink plenty of fluids. Take tylenol or ibuprofen for pain or fever. Take the medications as directed. Follow up with your regular doctor. GO TO THE ER FOR ANY WORSENING SYMPTOMS Quarantine until you know the results of your covid-19 test. Notify your school or workplace of your results and follow their instructions regarding return to work/school. The cough medication (promethazine dm) will make you drowsy, so don't drive or operate heavy machinery after taking it. Clinical Impressions Clinical Impression: Acute viral syndrome, RSV exposure Instructions Patient Instructions: Respiratory Syncytial Virus, DI for Viral Syndrome Discharge ED Provider: Miguelito Alfaro [facility] [place] HPI General Stated complaint: sore throat,achey,cough,headache Mode of Arrival: Ambulatory Source of Information: Patient Limitations: No Limitations Time Seen by Provider: 11/08/21 14:12 Description of Symptoms (Recalled from Triage Doc. by RN): PATIENT C/O RUNNY NOSE, CONGESTION AND LOSS OF VOICE. RECENTLY EXPOSED TO RSV AND PARAINFLUENZA HEENT Symptoms (Recalled from RN notes): Yes Resp Symptoms (Recalled from RN notes): No Skin Symptoms (Recalled from RN notes): No MS Symptoms (Recalled from RN notes): No Functional Status (Recalled from RN notes): WNL History of Present Illness Provider Complaint: She c/o sore throat, chills, low grade fever, body aches and malaise since yesterday. She has been exposed to both RSV and parainfluenza in her home (her grandson has
[2021-11-08 14:13] LABS: Adenovirus,PCR Not Detected (NotDetected); Bordetella Pertussis Not Detected (NotDetected); Chlamydophila Pneumoniae, PCR Not Detected (NotDetected); Coronavirus 19, PCR Not Detected (NotDetected); Coronavirus 229E Not Detected (NotDetected); Coronavirus NL63 Not Detected (NotDetected); Coronavirus OC43 Not Detected (NotDetected); Coronovirus HKU1,PCR Not Detected (NotDetected); Human Metapneumovirus Not Detected (NotDetected); Influenza A, PCR Not Detected (NotDetected); Influenza AH1, 2009 Not Detected (NotDetected); Influenza AH1, PCR Not Detected (NotDetected); Influenza AH3,PCR Not Detected (NotDetected); Influenza B, PCR Not Detected (NotDetected); Mycoplasma Pneumoniae, PCR Not Detected (NotDetected); Parainfluenza 1, PCR Not Detected (NotDetected); Parainfluenza 2, PCR Not Detected (NotDetected); Parainfluenza 3, PCR Not Detected (NotDetected); Parainfluenza 4, PCR Not Detected (NotDetected); Rhinovirus/Enterovirus Not Detected (NotDetected)
[2021-11-08 14:44] VITALS: BP 101/55; PULSE 88; RESP 20; TEMP 36.9; O2SAT 96
[2021-11-08 17:47] LABS: Respiratory Syncytial Virus Detected (NotDetected)
== END 2021-11-08 15:01 | disposition home or self-care (01) ==
PROVIDERS: Emergency Provider Nurse Practitioner Family; PCP Nurse Practitioner Family
DX: J06.9 Acute upper respiratory infection, unspecified; B97.4 Respiratory syncytial virus as the cause of diseases classified elsewhere
CPT/HCPCS: 87581; 87632; 87798; 99212; C9803; G0463; U0003; U0005

== ENCOUNTER 2021-12-08 08:12 | Emergency (ER) | payer MEDICARE, MEDICAID, SELFPAY ==
[2021-12-08 09:16] VITALS: BP 130/72; PULSE 78; RESP 16; TEMP 36.9; O2SAT 96; BMI 51.5
--- NOTE | 2021-12-08 09:16 | EXP.UTC ---
Discharge Plan Disposition Patient Disposition: Home, Self-Care Condition: Good Prescriptions Prescriptions: New cefdinir 300 mg capsule 300 mg PO BID Qty: 20 0RF No Action linaclotide 72 mcg capsule 72 mcg PO DAILY 30 Days buspirone 10 mg tablet 10 mg PO DAILY 30 Days bupropion HCl 150 mg tablet sustained-release 12 hr 150 mg PO DAILY Motegrity 2 mg tablet 2 mg PO DAILY esomeprazole magnesium 40 mg capsule,delayed release(DR/EC) 40 mg PO DAILY multivitamin Tablet 1 tab PO DAILY ascorbate calcium (vitamin C) 500 mg tablet 500 mg PO DAILY Galzin 25 mg (zinc) capsule 25 mg PO DAILY melatonin 10 mg capsule 10 mg PO HS PRN (Reason: Sleep) atorvastatin 40 mg tablet 40 mg PO DAILY Qty: 90 3RF lisinopril-hydrochlorothiazide 20-12.5 mg tablet 1 tab PO DAILY Qty: 90 3RF spironolactone 50 mg tablet 50 mg PO DAILY Qty: 90 3RF furosemide 80 mg tablet 40 mg PO BID Qty: 180 3RF dicyclomine 10 mg capsule 10 mg PO BID latanoprost 0.005 % drops 0.005 drp OPHTHALMIC DIRECTED estradiol 2 mg tablet 2 mg PO DAILY 90 Days Qty: 90 4RF Rx Instructions: Pt will need to make an appointment with Dr Alaniz before any refills levothyroxine 137 MCG tablet 137 mcg PO DAILY fluticasone propionate 44 MCG HFA aerosol inhaler 44 mcg NOSTRIL-B DAILY ropinirole 0.5 MG tablet 0.5 mg PO HS Rx Instructions: one to two tabs at night time hydromorphone (PF) 1 MG/ML syringe 0.15 mg IT CONT PRN (Reason: chronic pain) Rx Instructions: medication adminstered via intrathecal pain pump. total volume of pump is 20ml. famotidine 20 MG tablet 20 mg PO DAILY montelukast 10 MG tablet 10 mg PO DAILY aspirin 81 MG tablet,delayed release (DR/EC) 81 mg PO DAILY cyclobenzaprine 10 MG tablet 10 mg PO TID gabapentin 300 MG capsule 300 mg PO TID promethazine-DM 6.25-15 mg/5 mL Syrup 5 ml PO Q6H PRN (Reason: Cough) Qty: 240 0RF benzonatate [benzonatate] 100 mg capsule 100 mg PO TIDP PRN (Reason: Cough) Qty: 30 0RF ondansetron 4 mg Tablet,Disintegrating 4 mg PO Q8H PRN (Reason: Nausea) Qty: 20 0RF methylprednisolone 4 mg Tablets,Dose Pack 4 mg PO DIRECTED Qty: 21 0RF Referrals Follow up/Referrals: Gita Muhammad APRN [Primary Care Provider] - See instructions Activity Restrictions/Add. Instructions Additional Instructions/Restrictions: *Monitor Temp, Over the counter Motrin or Tylenol as directed/as needed Tylenol every 4 hours and Motrin every 6 hours (as long as your family doctor has told you that you can take it) for fever or pain. and straight to ER if unable to lower temp less than 101.0 after medication given *Warm salt water gargles may help to soothe the throat *Throat Lozenges? *Warm fluids like tea with honey may help to soothe the throat? *Sleep elevated *Humidifier/Vaporizer *If you did not take Penicillin shot or was unable to, start taking antibiotic immediately and make sure that you take it for the FULL length of time although you should start to feel better in 24-48 hours *change toothbrush and toothpaste 24-48 hours after starting to take antibiotics so you do not reinfect yourself Monitor Temp. Tylenol and/or Ibuprofen as needed. ER if fever is no less than 101 despite alternating Tylenol and Ibuprofen * Encourage fluids, water, Gatorade, powerade, pedialyte if infant/toddler/or child *Cold fluids, popsicles and ice cream may feel good on his throat Follow up IMMEDIATELY for new or worsening symptoms or no Noticeable improvement over the next 48-72 hours. 911 for difficulty breathing or swallowing Clinical Impressions Clinical Impression: Strep throat Instructions Patient Instructions: Strep Throat, DI for Strep Throat Discharge ED Provider: Lidya Perdomo [facility]
[2021-12-08 09:19] LABS: UTC Strep Screen (Rapid) Positive (Negative)
[2021-12-08 09:20] LABS: UTC Influenza A Antigen Negative (Negative); UTC Influenza B Antigen Negative (Negative)
[2021-12-08 09:30] VITALS: BP 130/72; PULSE 78; RESP 16; TEMP 36.9
== END 2021-12-08 09:31 | disposition home or self-care (01) ==
PROVIDERS: Emergency Provider Nurse Practitioner; PCP Nurse Practitioner Family
DX: J02.0 Streptococcal pharyngitis (principal)
CPT/HCPCS: 87804; 87880; 99212; G0463

== ENCOUNTER 2022-01-06 16:39 | Emergency (ER) | payer MEDICARE, MEDICAID, SELFPAY ==
[2022-01-06 16:53] VITALS: BP 143/77; PULSE 81; RESP 20; TEMP 36.8; O2SAT 97; BMI 51.5
[2022-01-06 16:58] LABS: Microscopic, Urine URINE MICROSCOPIC (MICROSCOPIC)
[2022-01-06 17:01] VITALS: BP 113/44; PULSE 84; O2SAT 98
[2022-01-06 17:01] LABS: Appearance,Urine SL CLOUDY (Clear); Bilirubin,Urine Negative (Negative); Blood, Urine 2+ (Negative); Color,Urine YELLOW (Yellow); Glucose,Urine (UA) Negative (Negative); Ketones,Urine Negative (Negative); Leukocyte Esterase,Urine 1+ (Negative); Nitrate,Urine Negative (Negative); Protein,Urine Negative (Negative); Specific Gravity, Urine 1.025 (1.005-1.030)
[2022-01-06 17:18] LABS: Bacteria,Urine Trace /lpf; RBC,Urine Occasional #/hpf (0-3)
--- NOTE | 2022-01-06 17:19 | CT_ITS ---
PROCEDURE INFORMATION: Exam: CT Abdomen And Pelvis With Contrast Exam date and time: 01/06/2022 6:30 PM Age: 56 years old Clinical indication: Abdominal pain; Generalized; Prior surgery; Surgery date: 6+ months; Surgery type: Hysterectomy, open choleycystectomy, and several other abdominal surgeries many years ago. She has a dilauded pain pump implanted. Patient HX: Abdomen pain after eating. ; Additional info: Abd pain TECHNIQUE: Imaging protocol: Computed tomography of the abdomen and pelvis with contrast. Radiation optimization: All CT scans at this facility use at least one of these dose optimization techniques: automated exposure control; mA and/or kV adjustment per patient size (includes targeted exams where dose is matched to clinical indication); or iterative reconstruction. Contrast material: ISOVUE; Contrast volume: 75 ml; Contrast route: IV; COMPARISON: CT ABDOMEN PELVIS W CON 10/05/2019 6:44 PM FINDINGS: Tubes, catheters and devices: None noted. Lungs: Lung bases appear clear. Heart: No significant coronary calcifications. No cardiomegaly. No significant pericardial effusion. Liver: Normal. No mass. Gallbladder and bile ducts: Normal. No calcified stones. No ductal dilation. Pancreas: Normal. No ductal dilation. Spleen: Normal. No splenomegaly. Adrenal glands: Normal. No mass. Kidneys and ureters: Normal. No hydronephrosis. Stomach and bowel: Unremarkable. No obstruction. No mucosal thickening. Appendix: No evidence of appendicitis. Intraperitoneal space: Unremarkable. No free air. No significant fluid collection. Retroperitoneal space: No significant retroperitoneal inflammatory changes are noted. Vasculature: Unremarkable. No abdominal aortic aneurysm. Lymph nodes: Unremarkable. No enlarged lymph nodes. Urinary bladder: Unremarkable as visualized. Reproductive: Hysterectomy. Bones/joints: Unremarkable. No acute fracture. Soft tissues: Implantable pain pump. IMPRESSION: No acute findings.
--- NOTE | 2022-01-06 17:21 | HMH.EDABDPAI ---
Discharge Plan Disposition Patient Disposition: Home, Self-Care Condition: Good Prescriptions Prescriptions: New oxycodone-acetaminophen [Endocet] 7.5-325 mg tablet 1 tab PO Q6H PRN (Reason: pain) Qty: 20 0RF No Action linaclotide 72 mcg capsule 72 mcg PO DAILY 30 Days buspirone 10 mg tablet 10 mg PO DAILY 30 Days bupropion HCl 150 mg tablet sustained-release 12 hr 150 mg PO DAILY Motegrity 2 mg tablet 2 mg PO DAILY esomeprazole magnesium 40 mg capsule,delayed release(DR/EC) 40 mg PO DAILY multivitamin Tablet 1 tab PO DAILY ascorbate calcium (vitamin C) 500 mg tablet 500 mg PO DAILY Galzin 25 mg (zinc) capsule 25 mg PO DAILY melatonin 10 mg capsule 10 mg PO HS PRN (Reason: Sleep) atorvastatin 40 mg tablet 40 mg PO DAILY Qty: 90 3RF lisinopril-hydrochlorothiazide 20-12.5 mg tablet 1 tab PO DAILY Qty: 90 3RF spironolactone 50 mg tablet 50 mg PO DAILY Qty: 90 3RF furosemide 80 mg tablet 40 mg PO BID Qty: 180 3RF dicyclomine 10 mg capsule 10 mg PO BID latanoprost 0.005 % drops 0.005 drp OPHTHALMIC DIRECTED estradiol 2 mg tablet See Rx Instructions .ROUTE .COMPLEX Qty: 90 0RF Dose Instruction: TAKE 1 TABLET ONE TIME DAILY FOR HORMONE Rx Instructions: TAKE 1 TABLET ONE TIME DAILY FOR HORMONE levothyroxine 137 MCG tablet 137 mcg PO DAILY fluticasone propionate 44 MCG HFA aerosol inhaler 44 mcg NOSTRIL-B DAILY ropinirole 0.5 MG tablet 0.5 mg PO HS Rx Instructions: one to two tabs at night time hydromorphone (PF) 1 MG/ML syringe 0.15 mg IT CONT PRN (Reason: chronic pain) Rx Instructions: medication adminstered via intrathecal pain pump. total volume of pump is 20ml. famotidine 20 MG tablet 20 mg PO DAILY montelukast 10 MG tablet 10 mg PO DAILY aspirin 81 MG tablet,delayed release (DR/EC) 81 mg PO DAILY cyclobenzaprine 10 MG tablet 10 mg PO TID promethazine-DM 6.25-15 mg/5 mL Syrup 5 ml PO Q6H PRN (Reason: Cough) Qty: 240 0RF benzonatate [benzonatate] 100 mg capsule 100 mg PO TIDP PRN (Reason: Cough) Qty: 30 0RF ondansetron 4 mg Tablet,Disintegrating 4 mg PO Q8H PRN (Reason: Nausea) Qty: 20 0RF methylprednisolone 4 mg Tablets,Dose Pack 4 mg PO DIRECTED Qty: 21 0RF cefdinir 300 mg capsule 300 mg PO BID Qty: 20 0RF Referrals Follow up/Referrals: Gita Muhammad APRN [Primary Care Provider] - See instructions Activity Restrictions/Add. Instructions Additional Instructions/Restrictions: Take your omeprazole twice daily for the next 2 weeks. Follow a bland diet and avoid fried greasy spicy foods. Clinical Impressions Clinical Impression: Epigastric pain, Acute gastritis Instructions Patient Instructions: DI for Acute Abdominal Pain Discharge ED Provider: Hung Aguilar Abdominal Pain HPI General Chief Complaint: Abdominal Pain Stated Complaint: abd pain Time Seen by Provider: 01/06/22 17:15 Mode of Arrival: Ambulatory Source of Information: Patient Limitations: No Limitations Description of Symptoms (Recalled from ER Triage Doc. by RN): pt to ed c/o epigastric pain that radiates under her breasts. pt states this pain started 2 days ago. History of Present Illness HPI narrative: Patient presents complaining of upper abdominal pain that began this past Tuesday after having eaten jalapeno peppers. She describes the pain as severe and with associated nausea but without vomiting or diarrhea. She denies chest pain or shortness of breath. She states she had similar pain in the past in association with pancreatitis. Related Data Home Medications Medication Instructions Recorded Confirmed buspirone 10 mg tablet 10 mg PO DAILY mood 30 days 09/19/17 12/16/21 linaclotide 72 mcg capsule 72 mcg PO DAILY ibs 30 days 09/19/17 12/16/21 fluticasone propionate 44 44 mcg NOSTRIL-B DA
[2022-01-06 17:30] VITALS: BP 112/62; PULSE 78; O2SAT 99
[2022-01-06 17:54] LABS: Basophils # 0.1 K/mm3 (0-0.2); Basophils % 0.9 % (0.1-2.0); Eosinophils # 0.2 K/mm3 (0.0-0.4); Eosinophils % 1.3 % (0.1-12.0); Hematocrit 39.4 % (37.0-47.0); Hemoglobin 12.8 g/dL (12.2-16.2); Lymphocytes # 1.8 K/mm3 (0.7-4.5); Mean Corpuscular HGB Conc 32.4 g/dL (31.8-35.4); Mean Corpuscular Hemoglobin 29.6 pg (27.0-31.2); Mean Corpuscular Volume 91.2 fl (81-99); Mean Platelet Volume 7.8 fl (7.4-10.4); Monocytes # 0.6 K/mm3 (0.1-1.0); Monocytes % 4.3 % (1.7-9.3); Neutrophils % 80.6 % (37.0-80.0); Platelet Count 504 K/mm3 (142-424); Red Blood Count 4.33 M/mm3 (4.20-5.40); White Blood Count 13.7 K/mm3 (4.8-10.8)
[2022-01-06 17:57] LABS: Blood Urea Nitrogen 18 mg/dl (7-17); Creatinine Clearance Estimated 53 mL/min (50-200); Estimated Glomerular Filt Rate 42 ml/min (>60); GFR (African American) 51 ML/MIN (>60)
[2022-01-06 17:58] LABS: Alanine Aminotransferase 24 U/L (12-78); Alkaline Phosphatase 131 U/L (38-126); Aspartate Amino Transferase 29 U/L (14-36); Bilirubin,Total 0.2 mg/dl (0.2-1.3); Calcium 9.1 mg/dl (8.4-10.2); Carbon Dioxide 32 mmol/L (22.0-30.0); Glucose 97 mg/dl (74-100)
[2022-01-06 18:01] VITALS: BP 105/57; PULSE 74; O2SAT 97
[2022-01-06 18:23] LABS: Anion Gap 8.7 mEq/L (5-15); Chloride 101 mmol/L (98-107); Potassium 3.7 mmoL/L (3.5-5.1); Sodium 138 mmol/L (136-145)
[2022-01-06 18:26] LABS: Albumin Level 3.9 g/dl (3.5-5.0); Lipase 102 U/L (23-300); Total Protein,Serum 7.9 g/dl (6.3-8.2)
[2022-01-06 19:00] VITALS: BP 100/51; PULSE 73; O2SAT 97
[2022-01-06 19:56] VITALS: BP 114/61; PULSE 72; RESP 17; TEMP 36.7; O2SAT 98
== END 2022-01-06 20:25 | disposition home or self-care (01) ==
PROVIDERS: Emergency Provider Emergency Medicine; PCP Nurse Practitioner Family
DX: K29.70 Gastritis, unspecified, without bleeding (principal); R10.13 Epigastric pain; Z79.899 Other long term (current) drug therapy; Z79.82 Long term (current) use of aspirin; K21.9 Gastro-esophageal reflux disease without esophagitis; E03.9 Hypothyroidism, unspecified; Z88.0 Allergy status to penicillin; I25.10 Atherosclerotic heart disease of native coronary artery without angina pectoris; E78.5 Hyperlipidemia, unspecified; G47.33 Obstructive sleep apnea (adult) (pediatric)
CPT/HCPCS: 74177; 80053; 81001; 83690; 85025; 87086; J2405; Q9967

== ENCOUNTER 2022-01-08 00:28 | Emergency (ER) | payer MEDICARE, MEDICAID, SELFPAY ==
[2022-01-08 00:29] VITALS: BP 125/65; PULSE 94; RESP 18; TEMP 37; O2SAT 96; BMI 51.0
[2022-01-08 00:53] LABS: Microscopic, Urine URINE MICROSCOPIC (MICROSCOPIC)
--- NOTE | 2022-01-08 01:03 | HMH.EDABDPAI ---
Discharge Plan Disposition Patient Disposition: Home, Self-Care Chief Complaint: Abdominal Pain Prescriptions Prescriptions: No Action linaclotide 72 mcg capsule 72 mcg PO DAILY 30 Days buspirone 10 mg tablet 10 mg PO DAILY 30 Days bupropion HCl 150 mg tablet sustained-release 12 hr 150 mg PO DAILY Motegrity 2 mg tablet 2 mg PO DAILY esomeprazole magnesium 40 mg capsule,delayed release(DR/EC) 40 mg PO DAILY multivitamin Tablet 1 tab PO DAILY ascorbate calcium (vitamin C) 500 mg tablet 500 mg PO DAILY Galzin 25 mg (zinc) capsule 25 mg PO DAILY melatonin 10 mg capsule 10 mg PO HS PRN (Reason: Sleep) atorvastatin 40 mg tablet 40 mg PO DAILY Qty: 90 3RF lisinopril-hydrochlorothiazide 20-12.5 mg tablet 1 tab PO DAILY Qty: 90 3RF spironolactone 50 mg tablet 50 mg PO DAILY Qty: 90 3RF furosemide 80 mg tablet 40 mg PO BID Qty: 180 3RF dicyclomine 10 mg capsule 10 mg PO BID latanoprost 0.005 % drops 0.005 drp OPHTHALMIC DIRECTED estradiol 2 mg tablet See Rx Instructions .ROUTE .COMPLEX Qty: 90 0RF Dose Instruction: TAKE 1 TABLET ONE TIME DAILY FOR HORMONE Rx Instructions: TAKE 1 TABLET ONE TIME DAILY FOR HORMONE levothyroxine 137 MCG tablet 137 mcg PO DAILY fluticasone propionate 44 MCG HFA aerosol inhaler 44 mcg NOSTRIL-B DAILY ropinirole 0.5 MG tablet 0.5 mg PO HS Rx Instructions: one to two tabs at night time hydromorphone (PF) 1 MG/ML syringe 0.15 mg IT CONT PRN (Reason: chronic pain) Rx Instructions: medication adminstered via intrathecal pain pump. total volume of pump is 20ml. famotidine 20 MG tablet 20 mg PO DAILY oxycodone-acetaminophen [Endocet] 7.5-325 mg tablet 1 tab PO Q6H PRN (Reason: pain) Qty: 20 0RF montelukast 10 MG tablet 10 mg PO DAILY aspirin 81 MG tablet,delayed release (DR/EC) 81 mg PO DAILY cyclobenzaprine 10 MG tablet 10 mg PO TID promethazine-DM 6.25-15 mg/5 mL Syrup 5 ml PO Q6H PRN (Reason: Cough) Qty: 240 0RF benzonatate [benzonatate] 100 mg capsule 100 mg PO TIDP PRN (Reason: Cough) Qty: 30 0RF ondansetron 4 mg Tablet,Disintegrating 4 mg PO Q8H PRN (Reason: Nausea) Qty: 20 0RF methylprednisolone 4 mg Tablets,Dose Pack 4 mg PO DIRECTED Qty: 21 0RF cefdinir 300 mg capsule 300 mg PO BID Qty: 20 0RF Referrals Follow up/Referrals: Gita Muhammad APRN [Primary Care Provider] - See instructions Clinical Impressions Clinical Impression: Sphincter of Oddi dysfunction, Elevated LFTs, Renal insufficiency Instructions Patient Instructions: DI for Acute Abdominal Pain Discharge ED Provider: Maximo Lemons Abdominal Pain HPI General Chief Complaint: Abdominal Pain Stated Complaint: nausea, abd pain Time Seen by Provider: 01/08/22 01:03 Mode of Arrival: Ambulatory Source of Information: Patient and Medical Record Limitations: No Limitations Description of Symptoms (Recalled from ER Triage Doc. by RN): pt c/o abdominal pain under the left side of her breast. the pt was stated that she was here 2 days ago but hasnt been able to get her pain medicine because the pharmacy was closed for thanksgiving. the pt states that she was un able to finish her dinner because of the pain and needed to come in because she could no longer stand the pain History of Present Illness HPI narrative: for about 1 week has upper abd pain over the last week - was seen in the ed and had stable labs and ct - no melena complaint: abdominal pain Onset (ago): day(s) Consistency: intermittent Location: epigastric Severity: moderate Quality: stabbing Radiation: epigastric Associated symptoms: denies other symptoms Related Data Home Medications Medication Instructions Recorded Confirmed buspirone 10 mg tablet 10 mg PO DAILY mood 30 days 09/19/17 12/16/21 linaclotide 72 mcg
[2022-01-08 01:12] LABS: Bilirubin,Urine Negative (Negative); Blood, Urine TRACE-I (Negative); Color,Urine YELLOW (Yellow); Glucose,Urine (UA) Negative (Negative); Ketones,Urine Negative (Negative); Leukocyte Esterase,Urine 2+ (Negative); Nitrate,Urine Negative (Negative); PH,Urine 5.5 (5.0-8.5); Protein,Urine Negative (Negative); Specific Gravity, Urine 1.015 (1.005-1.030); Urobilinogen,Urine 0.2 EU/dl (0.2)
[2022-01-08 01:22] LABS: Appearance,Urine Slightly Cloudy (Clear)
[2022-01-08 01:28] LABS: Bacteria,Urine 1+ /lpf; Mucus,Urine 1+ /lpf
[2022-01-08 01:54] LABS: Basophils # 0.1 K/mm3 (0-0.2); Basophils % 0.6 % (0.1-2.0); Eosinophils # 0.2 K/mm3 (0.0-0.4); Eosinophils % 1.4 % (0.1-12.0); Hematocrit 38.9 % (37.0-47.0); Hemoglobin 12.4 g/dL (12.2-16.2); Lymphocytes # 2.1 K/mm3 (0.7-4.5); Lymphocytes % 14.7 % (10-50); Mean Corpuscular HGB Conc 31.9 g/dL (31.8-35.4); Mean Corpuscular Hemoglobin 29.3 pg (27.0-31.2); Monocytes # 0.7 K/mm3 (0.1-1.0); Monocytes % 4.6 % (1.7-9.3); Neutrophils # 11.5 K/mm3 (1.8-7.8); Neutrophils % 78.9 % (37.0-80.0); Platelet Count 521 K/mm3 (142-424); Red Blood Count 4.22 M/mm3 (4.20-5.40); Red Cell Distribution Width 16.3 % (11.5-17.5); White Blood Count 14.5 K/mm3 (4.8-10.8)
[2022-01-08 02:01] LABS: Chloride 100 mmol/L (98-107); Potassium 3.7 mmoL/L (3.5-5.1); Sodium 135 mmol/L (136-145)
[2022-01-08 02:03] LABS: Amylase 115 U/L (30-110); Blood Urea Nitrogen 23 mg/dl (7-17); Creatinine Clearance Estimated 40 mL/min (50-200); Estimated Glomerular Filt Rate 31 ml/min (>60); GFR (African American) 37 ML/MIN (>60)
[2022-01-08 02:04] LABS: Alanine Aminotransferase 95 U/L (12-78); Albumin Level 3.8 g/dl (3.5-5.0); Alkaline Phosphatase 226 U/L (38-126); Anion Gap 10.7 mEq/L (5-15); Aspartate Amino Transferase 132 U/L (14-36); Bilirubin,Total 1.4 mg/dl (0.2-1.3); Calcium 9.1 mg/dl (8.4-10.2); Carbon Dioxide 28 mmol/L (22.0-30.0); Globulin 3.7 g/dL (1.3-3.2); Glucose 91 mg/dl (74-100); Lipase 85 U/L (23-300); Total Protein,Serum 7.5 g/dl (6.3-8.2)
--- NOTE | 2022-01-08 02:38 | CT_ITS ---
PROCEDURE INFORMATION: Exam: CT Abdomen And Pelvis Without Contrast Exam date and time: 01/08/2022 2:46 AM Age: 56 years old Clinical indication: Abnormal findings; Abnormal lab test; Elevated liver enzymes; Prior surgery; Surgery type: States pain pump, cholecystectomy, hysterectomy, right ovarian cyst removal; Additional info: Abd pain, elevated liver enzymes, HX pancreatitis TECHNIQUE: Imaging protocol: Computed tomography of the abdomen and pelvis without contrast. Total images: 2 Radiation optimization: All CT scans at this facility use at least one of these dose optimization techniques: automated exposure control; mA and/or kV adjustment per patient size (includes targeted exams where dose is matched to clinical indication); or iterative reconstruction. COMPARISON: CT ABDOMEN PELVIS W CON 01/06/2022 6:30 PM FINDINGS: Lungs: There is subsegmental bibasilar atelectasis. Single noncalcified subpleural granulomata in the lung bases unchanged from 10/05/2019. No follow-up imaging is recommended. Diaphragm: There is nonspecific elevation of the right hemidiaphragm. Liver: Hepatomegaly at 20 cm craniocaudal dimension with borderline findings of hepatic steatosis. No apparent intrahepatic biliary distension. Gallbladder and bile ducts: Cholecystectomy noted with postoperative biliary ductal fullness. Pancreas: Normal. No ductal dilation. Spleen: Normal. No splenomegaly. Adrenal glands: 21 mm benign left adrenal adenoma, no further followup necessary, unchanged. Kidneys and ureters: Urinary contrast material present at the time of imaging. Stomach and bowel: Gastric, ileal, colon and rectum demonstrate mural fat deposition, suspicious for prior recurrent/chronic inflammation. No acute inflammatory changes of the wall suspected. Colonic diverticulosis is present without diverticulitis. Appendix: Normal appendix. Intraperitoneal space: Unremarkable. No free air. No significant fluid collection. Vasculature: Unremarkable. No abdominal aortic aneurysm. Lymph nodes: Unremarkable. No enlarged lymph nodes. Urinary bladder: Unremarkable as visualized. Reproductive: Hysterectomy noted. Pelvic floor: Laxity of the pelvic floor is noted. Bones/joints: Spinal pain pump. Moderate spinal degenerative changes. Facet joint degenerative changes are present. Multifocal central canal and neural foraminal stenosis, due to degeneration. Soft tissues: Unremarkable. IMPRESSION: 1. No ureteral stone or hydronephrosis. 2. Normal appendix. 3. Hepatomegaly at 20 cm craniocaudal dimension with borderline findings of hepatic steatosis. No apparent intrahepatic biliary distension.
[2022-01-08 04:17] VITALS: BP 136/77; PULSE 80; RESP 17; TEMP 36.9; O2SAT 96
--- NOTE | 2022-01-08 04:30 | PC.NURSE ---
& this RN s/w pt
--- NOTE | 2022-01-08 05:04 | PC.NURSE ---
Called [facility] per possible pt transfer at this time
--- NOTE | 2022-01-08 06:25 | PC.NURSE ---
@ [phone] [place] [facility] called, states they have no Gastroenterology coverage until 01/15/22. notified. Pt does not wish to be transferred anywhere else and states she feels comfortable going home. Per , he would like pt to hold the Lisinipril/HCTZ and cut the lasix in half
== END 2022-01-08 06:00 | disposition home or self-care (01) ==
PROVIDERS: Emergency Provider Emergency Medicine; PCP Nurse Practitioner Family
DX: K83.4 Spasm of sphincter of Oddi (principal)
CPT/HCPCS: 74176; 80053; 81001; 82150; 83690; 85025; 87086

== ENCOUNTER 2022-01-09 03:27 | Inpatient (IN) | payer MEDICARE, MEDICAID, SELFPAY ==
[2022-01-09] VITALS (31 sets, daily range): BP systolic 76–125; BP diastolic 33–63; PULSE 62–108; RESP 15–22; TEMP 36.4–36.8; O2SAT 90–100; BMI 51.0; BMI 52.4; BMI 52.3
--- NOTE | 2022-01-09 03:36 | HMH.EDGENADL ---
Discharge Plan Disposition Patient Disposition: Admitted As Inpatient Condition: Fair Clinical Impressions Clinical Impression: Epigastric pain, BEST (acute kidney injury), Acute dehydration Discharge ED Provider: Cindy Sneed Adult HPI General Chief complaint: Abdominal Pain Stated complaint: Stomach pain,N/V Time Seen by Provider: 01/09/22 03:30 Mode of Arrival: Ambulatory Source of Information: Patient Limitations: No Limitations History of Present Illness HPI narrative: 56-year-old female presenting to the emergency department abdominal pain. Pain is located in the upper abdomen. Described as squeezing, pressure type pain. No radiation to the jaw, back. No radiation to the lower abdomen. Pain is been present for the last 4 to 5 days. She suffered from pain like this before, due to pancreatitis and sphincter of Oddi dysfunction. She denies history of gallstones or alcohol use disorder. She has tried home Phenergan without relief. Now unable to keep down food or liquids. She has little appetite. She was evaluated in our emergency department yesterday, treated with fluids and pain medicine. No fevers, chills, diarrhea, hematochezia Related Data Home Medications Medication Instructions Recorded Confirmed buspirone 10 mg tablet 10 mg PO DAILY mood 30 days 09/19/17 01/09/22 linaclotide 72 mcg capsule 72 mcg PO DAILY ibs 30 days 09/19/17 01/09/22 fluticasone propionate 44 44 mcg NOSTRIL-B DAILY allergies 03/06/19 01/09/22 mcg/actuation HFA aerosol inhaler levothyroxine 137 mcg tablet 137 mcg PO DAILY hypothryoidism 03/06/19 01/09/22 montelukast 10 mg tablet 10 mg PO DAILY allergies 04/30/20 01/09/22 ropinirole 0.5 mg tablet 0.5 mg PO HS rls 06/25/20 01/09/22 hydromorphone (PF) 1 mg/mL 0.15 mg intrathecal CONT PRN 07/31/20 01/09/22 injection syringe chronic pain bupropion HCl 150 mg tablet,12 hr 150 mg PO DAILY mood 09/05/20 01/09/22 sustained-release esomeprazole magnesium 40 mg 40 mg PO DAILY GERD 09/05/20 01/09/22 capsule,delayed release prucalopride 2 mg tablet 2 mg PO DAILY bowels 09/05/20 01/09/22 (Motegrity) aspirin 81 mg tablet,delayed 81 mg PO DAILY heart health 09/15/20 01/09/22 release dicyclomine 10 mg capsule 10 mg PO BID bowels 09/29/20 01/09/22 latanoprost 0.005 % eye drops 0.005 drp OPHTHALMIC DIRECTED 09/29/20 01/09/22 eye cyclobenzaprine 10 mg tablet 10 mg PO TID stomach 11/03/20 01/09/22 ascorbate calcium (vitamin C) 500 500 mg PO DAILY SUPPLIMENT 07/08/21 01/09/22 mg tablet melatonin 10 mg capsule 10 mg PO HS PRN Sleep 07/08/21 01/09/22 multivitamin 1 tab PO DAILY SUPPLIMENT 07/08/21 01/09/22 zinc acetate 25 mg (zinc) capsule 25 mg PO DAILY SUPPLIMENT 07/08/21 01/09/22 (Galzin) famotidine 20 mg tablet 20 mg PO DAILY stomach 08/21/21 01/09/22 estradiol 2 mg tablet See Rx Instructions .Route 01/08/22 01/09/22 .COMPLEX hormone gabapentin 300 mg capsule 300 mg PO DAILY neuropathy 01/08/22 01/09/22 Previous Rx's Medication Instructions Recorded atorvastatin 40 mg tablet 40 mg PO DAILY Cholesterol #90 tabs 07/08/21 lisinopril 20 1 tab PO DAILY blood pressure #90 07/08/21 mg-hydrochlorothiazide 12.5 mg tabs tablet spironolactone 50 mg tablet 50 mg PO DAILY fluid retention #90 07/08/21 tabs furosemide 80 mg tablet 40 mg PO BID swelling #180 tabs 08/07/21 benzonatate 100 mg capsule 100 mg PO TIDP PRN Cough #30 caps 11/08/21 ondansetron 4 mg disintegrating 4 mg PO Q8H PRN Nausea #20 tabs 11/08/21 tablet Allergies Allergy/AdvReac Type Severity Reaction Status Date / Time Penicillins Allergy Verified 12/16/21 11:24 [facility] Medical History (Updated 01/09/22 @ 06:00 by Kenna Julien RN) Abnormal electrocardiography Bradycardia CAD (coronary artery disease) Chest pain Dizziness Dyspnea Edema Ex-smoker Fatigue HTN (hypertension) Hyperlipidemia IBS (irritable bowel syndrome) Morbid obesity BRAULIO (obstructive sleep apnea) Post hysterectomy
[2022-01-09 03:56] LABS: Basophils # 0.1 K/mm3 (0-0.2); Basophils % 0.5 % (0.1-2.0); Eosinophils # 0.1 K/mm3 (0.0-0.4); Eosinophils % 0.8 % (0.1-12.0); Hematocrit 42.1 % (37.0-47.0); Hemoglobin 13.4 g/dL (12.2-16.2); Lymphocytes # 0.3 K/mm3 (0.7-4.5); Lymphocytes % 3.7 % (10-50); Mean Corpuscular HGB Conc 31.8 g/dL (31.8-35.4); Mean Corpuscular Hemoglobin 29.7 pg (27.0-31.2); Mean Corpuscular Volume 93.3 fl (81-99); Monocytes # 0.1 K/mm3 (0.1-1.0); Monocytes % 0.8 % (1.7-9.3); Neutrophils # 8.5 K/mm3 (1.8-7.8); Neutrophils % 94.1 % (37.0-80.0); Platelet Count 445 K/mm3 (142-424); Red Blood Count 4.51 M/mm3 (4.20-5.40); Red Cell Distribution Width 16.2 % (11.5-17.5)
[2022-01-09 03:57] LABS: MANUAL DIFFERENTIAL MANUAL DIFFERENTIAL (MANUAL DIFF)
[2022-01-09 04:03] LABS: Chloride 102 mmol/L (98-107); Sodium 137 mmol/L (136-145)
[2022-01-09 04:04] LABS: Potassium 3.9 mmoL/L (3.5-5.1)
[2022-01-09 04:06] LABS: Alanine Aminotransferase 199 U/L (12-78); Alkaline Phosphatase 380 U/L (38-126); Anion Gap 13.9 mEq/L (5-15); Aspartate Amino Transferase 169 U/L (14-36); Bilirubin,Total 3.6 mg/dl (0.2-1.3); Blood Urea Nitrogen 32 mg/dl (7-17); Calcium 9.2 mg/dl (8.4-10.2); Carbon Dioxide 25 mmol/L (22.0-30.0); Creatinine Clearance Estimated 23 mL/min (50-200); Estimated Glomerular Filt Rate 16 ml/min (>60); GFR (African American) 19 ML/MIN (>60); Globulin 4.1 g/dL (1.3-3.2); Glucose 76 mg/dl (74-100); Lipase 166 U/L (23-300); Total Protein,Serum 8.1 g/dl (6.3-8.2)
[2022-01-09 04:15] LABS: Lymphocytes % 6 % (10-50); Neutrophils % 73 % (42-76); Platelet Estimate Normal; RBC Morphology Normal; Total Cells Counted 100
[2022-01-09 04:25] LABS: Coronavirus 19, PCR Not Detected (NotDetected); Influenza A, PCR Not Detected (NotDetected); Influenza B, PCR Not Detected (NotDetected)
[2022-01-09 04:38] LABS: Lactic Acid 1.6 mmol/L (0.7-2.1)
--- NOTE | 2022-01-09 05:12 | EXP.HP ---
History of Present Illness *Admission Date: 01/09/22 *Reason for visit:: Abdominal pain *History of present illness: This is a 56-year-old female with past medical history of coronary artery disease, hypertension, sphincter of Oddi dysfunction with past history of pancreatitis presents emergency department today with 3 days complaint of abdominal pain. She has been seen twice in the emergency department over the last 3 days with today being her third visit. She is undergone full work-ups on all [address] yesterday showed hepatomegaly. Lipase yesterday was 85 today it is 166. Today she complains of ongoing anorexia, nausea and epigastric pain. She does endorse cholecystectomy approximately 30 years ago and has had ERCP in the past but no stone was found only sphincter of Oddi dysfunction. She reports being lightheaded and clammy. Given the above-mentioned complaint she will be admitted to the hospitalist service for further evaluation and. [facility] Medical History Abnormal electrocardiography Bradycardia CAD (coronary artery disease) Chest pain Dizziness Dyspnea Edema Ex-smoker Fatigue HTN (hypertension) Hyperlipidemia Morbid obesity BRAULIO (obstructive sleep apnea) Social History Smoking Status: Former smoker alcohol intake: never substance use type: denies use current occupational status: unemployed Travel in the last 8 weeks: Inside the [place] household members: spouse and children housing: house current occupational exposures/hazards: No caffeine: Yes Review of Systems Constitutional Constitutional: Reports system reviewed and no additional complaints, except as documented Eyes Eyes: Reports system reviewed and no additional complaints, except as documented and Denies loss of vision ENT Ears, Nose, Mouth, and Throat: Reports system reviewed and no additional complaints, except as documented and Denies dizziness *Cardiovascular Cardiovascular: Reports system reviewed and no additional complaints, except as documented *Respiratory Respiratory: Reports system reviewed and no additional complaints, except as documented *Gastrointestinal Gastrointestinal: Reports system reviewed and no additional complaints, except as documented *Genitourinary Genitourinary: Reports system reviewed and no additional complaints, except as documented *Musculoskeletal Musculoskeletal: Reports system reviewed and no additional complaints, except as documented, Denies numbness and Denies tingling Integumentary/Breasts Skin/Breast: Reports system reviewed and no additional complaints, except as documented *Neurologic Neurologic: Reports system reviewed and no additional complaints, except as documented, Denies dizziness, Denies loss of vision, Denies numbness and Denies tingling Psychiatric Psychiatric: Reports system reviewed and no additional complaints, except as documented Endocrine Endocrine: Reports system reviewed and no additional complaints, except as documented Hematologic/Lymphatic Hematologic/Lymphatic: Reports system reviewed and no additional complaints, except as documented Allergic/Immunologic Allergic/Immunologic: Reports system reviewed and no additional complaints, except as documented Meds Home Medications and Allergies Home Medications Medication Instructions Recorded Confirmed Type buspirone 10 mg tablet 10 mg PO DAILY mood 30 days 09/19/17 01/09/22 History linaclotide 72 mcg capsule 72 mcg PO DAILY ibs 30 days 09/19/17 01/09/22 History fluticasone propionate 44 44 mcg NOSTRIL-B DAILY allergies 03/06/19 01/09/22 History mcg/actuation HFA aerosol inhaler levothyroxine 137 mcg tablet 137 mcg PO DAILY hypothryoidism 03/06/19 01/09/22 History montelukast 10 mg tablet 10 mg PO DAILY allergies 04/30/20 01/09/22 History ropinirole 0.5 mg tablet 0.5 mg PO HS rls 06/25/20 01/09/22 History hydromor
[2022-01-09 05:25] LABS: Chol/HDL Ratio 2.5 (1-3.5); Cholesterol 111 mg/dl (140-200); HDL Cholesterol 45 mg/dl (40-60); Triglycerides 90 mg/dl (30-150); VLDL Cholesterol 18 mg/dL (0-40)
--- NOTE | 2022-01-09 05:36 | PC.NURSE ---
patient up to floor via wheelchair @ this time
[2022-01-09 05:38] LABS: Direct LDL Cholesterol < 30.00 mg/dL (100-129)
--- NOTE | 2022-01-09 06:18 | HMH.ITSTN ---
called floor and advised Ultrasound not back in till Tuesday. She checked with Dr villalobos to scan Tuesday for epigastric pain abd ultrasound
--- NOTE | 2022-01-09 06:24 | CT_ITS ---
PROCEDURE INFORMATION: Exam: CT Abdomen And Pelvis Without Contrast Exam date and time: 01/09/2022 8:53 AM Age: 56 years old Clinical indication: Abdominal pain; Epigastric TECHNIQUE: Imaging protocol: Computed tomography of the abdomen and pelvis without contrast. Radiation optimization: All CT scans at this facility use at least one of these dose optimization techniques: automated exposure control; mA and/or kV adjustment per patient size (includes targeted exams where dose is matched to clinical indication); or iterative reconstruction. COMPARISON: CT ABDOMEN PELVIS WO CON 01/08/2022 2:46 AM FINDINGS: Tubes, catheters and devices: Spinal stimulator again noted. Liver: Stable hepatomegaly. Gallbladder and bile ducts: Previous cholecystectomy. Pancreas: Normal. No ductal dilation. Spleen: Normal. No splenomegaly. Adrenal glands: Stable left benign adrenal adenoma. Right adrenal gland unremarkable. Kidneys and ureters: Normal. No hydronephrosis. Stomach and bowel: Unremarkable. No obstruction. No mucosal thickening. Appendix: No evidence of appendicitis. Intraperitoneal space: Unremarkable. No free air. No significant fluid collection. Vasculature: Unremarkable. No abdominal aortic aneurysm. Lymph nodes: Unremarkable. No enlarged lymph nodes. Urinary bladder: Unremarkable as visualized. Reproductive: Unremarkable as visualized. Bones/joints: Degenerative changes lower lumbar spine. Soft tissues: Unremarkable. IMPRESSION: 1. Stable hepatomegaly. 2. No acute abnormality.
[2022-01-09 06:43] LABS: INR 0.98 (0.9-1.1); Prothrombin Time 10.6 seconds (10.1-12.5)
--- NOTE | 2022-01-09 07:13 | HMH.ITSTN ---
went to get patient her blood pressure is low and she is too unstable to go down for scan will call when ready
--- NOTE | 2022-01-09 07:54 | EXP.PHA.CONS ---
Pharmacy Consult Date: 01/09/22 Time: 07:54 Referring provider: DR. Charu SMITH Reason for Consult:: VANCOMYCIN DOSING Allergies Allergy/AdvReac Type Severity Reaction Status Date / Time Penicillins Allergy Verified 12/16/21 11:24 Home Medications Medication Instructions Recorded Confirmed Type buspirone 10 mg tablet 10 mg PO DAILY mood 30 days 09/19/17 01/09/22 History linaclotide 72 mcg capsule 72 mcg PO DAILY ibs 30 days 09/19/17 01/09/22 History fluticasone propionate 44 44 mcg NOSTRIL-B DAILY allergies 03/06/19 01/09/22 History mcg/actuation HFA aerosol inhaler levothyroxine 137 mcg tablet 137 mcg PO DAILY hypothryoidism 03/06/19 01/09/22 History montelukast 10 mg tablet 10 mg PO DAILY allergies 04/30/20 01/09/22 History ropinirole 0.5 mg tablet 0.5 mg PO HS rls 06/25/20 01/09/22 History hydromorphone (PF) 1 mg/mL 0.15 mg intrathecal CONT PRN 07/31/20 01/09/22 History injection syringe chronic pain bupropion HCl 150 mg tablet,12 hr 150 mg PO DAILY mood 09/05/20 01/09/22 History sustained-release esomeprazole magnesium 40 mg 40 mg PO DAILY GERD 09/05/20 01/09/22 History capsule,delayed release prucalopride 2 mg tablet 2 mg PO DAILY bowels 09/05/20 01/09/22 History (Motegrity) aspirin 81 mg tablet,delayed 81 mg PO DAILY heart health 09/15/20 01/09/22 History release dicyclomine 10 mg capsule 10 mg PO BID bowels 09/29/20 01/09/22 History latanoprost 0.005 % eye drops 0.005 drp OPHTHALMIC DIRECTED 09/29/20 01/09/22 History eye cyclobenzaprine 10 mg tablet 10 mg PO TID stomach 11/03/20 01/09/22 History ascorbate calcium (vitamin C) 500 500 mg PO DAILY SUPPLIMENT 07/08/21 01/09/22 History mg tablet atorvastatin 40 mg tablet 40 mg PO DAILY Cholesterol #90 tabs 07/08/21 01/09/22 Rx lisinopril 20 1 tab PO DAILY blood pressure #90 07/08/21 01/09/22 Rx mg-hydrochlorothiazide 12.5 mg tabs tablet melatonin 10 mg capsule 10 mg PO HS PRN Sleep 07/08/21 01/09/22 History multivitamin 1 tab PO DAILY SUPPLIMENT 07/08/21 01/09/22 History spironolactone 50 mg tablet 50 mg PO DAILY fluid retention #90 07/08/21 01/09/22 Rx tabs zinc acetate 25 mg (zinc) capsule 25 mg PO DAILY SUPPLIMENT 07/08/21 01/09/22 History (Galzin) furosemide 80 mg tablet 40 mg PO BID swelling #180 tabs 08/07/21 01/09/22 Rx famotidine 20 mg tablet 20 mg PO DAILY stomach 08/21/21 01/09/22 History benzonatate 100 mg capsule 100 mg PO TIDP PRN Cough #30 caps 11/08/21 01/09/22 Rx ondansetron 4 mg disintegrating 4 mg PO Q8H PRN Nausea #20 tabs 11/08/21 01/09/22 Rx tablet estradiol 2 mg tablet See Rx Instructions .Route 01/08/22 01/09/22 History .COMPLEX hormone gabapentin 300 mg capsule 300 mg PO DAILY neuropathy 01/08/22 01/09/22 History New Prescriptions to Start Prescriptions: Height: 1.8 m Weight: 170.324 kg Laboratory Results:: Laboratory Results - last 24 hr 01/09/22 03:45: WBC 9.0 D, RBC 4.51, Hgb 13.4, Hct 42.1, MCV 93.3, MCH 29.7, MCHC 31.8, RDW 16.2, Plt Count 445 H, MPV 8.0, Neut % (Auto) 94.1 H, Lymph % (Auto) 3.7 L, Lamb % (Auto) 0.8 L, Eos % (Auto) 0.8, Baso % (Auto) 0.5, Neut # (Auto) 8.5 H, Lymph # (Auto) 0.3 L, Lamb # (Auto) 0.1, Eos # (Auto) 0.1, Baso # (Auto) 0.1, Total Counted 100, Neutrophils % (Manual) 73, Band Neutrophils % 21.0 H, Lymphocytes % (Manual) 6 L, Platelet Estimate Normal, RBC Morphology Normal 01/09/22 03:45: Sodium 137, Potassium 3.9, Chloride 102, Carbon Dioxide 25, Anion Gap 13.9, BUN 32 H D, Creatinine 3.00 H D, Estimated Creat Clear 23, Estimated GFR 16 L*, Est GFR ( Amer) 19 L* D, Glucose 76, Calcium 9.2, Total Bilirubin 3.6 H, AST 169 H D, ALT 199 H D, Alkaline Phosphatase 380 H, Total Protein 8.1, Albumin 4.0, Globulin 4.1 H, Albumin/Globulin Ratio 1.0 L, Lipase 166 01/09/22 03:45: Procalcitonin 2.00 01/09/22 03:45: Triglycerides 90, Cholesterol 111 L, LDL Cholesterol Direct < 30.00 L, VLDL Cholesterol 18, HDL Cholesterol 45, Cholesterol/HDL Ratio 2.5 01/09/22 03:45: PT 10.6,
--- NOTE | 2022-01-09 08:19 | CA_ITS ---
APPROVED REPORT EXAM: Comprehensive 2D, Doppler, and color-flow Echocardiogram Intake Man: Gia Fisher RT(R) Ht: 5 ft 11 in Wt: 375lbs BSA: 2.75 BP: 100/55 mmHg Indications: CAD, septic shock., epigastric pain, hx of pancreatitis, ex smoker, HTN, hyperlipidemia, obesity 2D Dimensions LVOT 2.03 cm (M/F) 1.5-2.5 LA Volume 53.70 mL LA Volume Index 19.52 mL/m2 (M/F) 16-34 M-Mode Dimensions RVDd 2.81 cm (0.9-2.6) LA Diam 3.58 cm (1.9-4.0) LVDd 4.70 cm (3.5-5.7) Ao Diam 2.86 cm (2.0-3.7) LVDs 3.58 cm (3.5-5.7) IVSd 1.08 cm (0.6-1.1) PWd 0.93 cm (0.6-1.1) EF (Teich) 47.60% FS 23.80% EDV (Teich) 102.40 mL ESV (Teich) 53.70 mL LV Diastology E Decel Time 287.00 (160-240 msec) E/A Ratio 0.80 Mitral Valve MV A Velocity 100.00 (40-130 cm/s) E/A Ratio 0.80 MV Decel. Time 287.00 (160-240 ms) Tricuspid Valve TR P. Velocity 201.00 cm/s RAP Estimate 10.00 mmHg RVSP 26.10 mmHg Left Ventricle Technically difficult study because of the patient factors and poor acoustic windows. Left atrium is mildly enlarged, left ventricle is normal size, mild concentric left ventricular hypertrophy, estimated ejection fraction 50% with no regional wall motion abnormality. Doppler evidence of impaired LV relaxation seen, endocardial surfaces are poorly visualized. Right Ventricle Right atrium and right ventricle are qualitatively mildly enlarged with normal contractility. Aortic Valve Aortic valve is grossly normal there is no aortic stenosis or aortic insufficiency. Mitral Valve Mitral valve is grossly normal, there is trace mitral regurgitation. Tricuspid Valve Tricuspid valve grossly normal, there is trace tricuspid regurgitation, tricuspid regurgitation request is inadequate for calculation of the right ventricular systolic pressure. Pulmonic Valve Pulmonic valve is poorly visualized. Great Vessels Aortic root is normal size. Inferior vena cava is poorly visualized. Pericardium No significant pericardial effusion noted. Conclusion 1. Mild biatrial enlargement, normal left ventricular size, mild concentric left ventricular hypertrophy, estimated ejection fraction 50% with no regional wall motion abnormality, Doppler evidence of impaired LV relaxation seen. 2. Mildly enlarged right ventricle with normal contractility. 3. Trace mitral and tricuspid regurgitation. 4. No significant pericardial effusion noted. 5. Inferior vena cava is poorly visualized. Electronically signed by : Bar Alexis MD 01/12/2022 06:02:46
[2022-01-09 08:22] LABS: Chloride 106 mmol/L (98-107); Potassium 3.2 mmoL/L (3.5-5.1); Sodium 136 mmol/L (136-145)
[2022-01-09 08:23] LABS: Basophils # 0.1 K/mm3 (0-0.2); Basophils % 0.3 % (0.1-2.0); Eosinophils % 0.2 % (0.1-12.0); Hematocrit 39.1 % (37.0-47.0); Hemoglobin 12.2 g/dL (12.2-16.2); Lymphocytes # 0.3 K/mm3 (0.7-4.5); Mean Corpuscular HGB Conc 31.3 g/dL (31.8-35.4); Mean Corpuscular Hemoglobin 29.4 pg (27.0-31.2); Mean Corpuscular Volume 93.9 fl (81-99); Mean Platelet Volume 8.4 fl (7.4-10.4); Monocytes # 0.3 K/mm3 (0.1-1.0); Neutrophils % 95.5 % (37.0-80.0); Platelet Count 345 K/mm3 (142-424); Red Blood Count 4.16 M/mm3 (4.20-5.40); Red Cell Distribution Width 16.4 % (11.5-17.5); White Blood Count 16.7 K/mm3 (4.8-10.8)
[2022-01-09 08:25] LABS: Alanine Aminotransferase 149 U/L (12-78); Albumin/Globulin Ratio 0.9 (1.1-1.8); Alkaline Phosphatase 311 U/L (38-126); Anion Gap 11.2 mEq/L (5-15); Aspartate Amino Transferase 120 U/L (14-36); Bilirubin,Total 3.8 mg/dl (0.2-1.3); Blood Urea Nitrogen 32 mg/dl (7-17); Calcium 7.9 mg/dl (8.4-10.2); Carbon Dioxide 22 mmol/L (22.0-30.0); Creatinine Clearance Estimated 22 mL/min (50-200); Estimated Glomerular Filt Rate 15 ml/min (>60); GFR (African American) 19 ML/MIN (>60); Globulin 3.4 g/dL (1.3-3.2); Glucose 84 mg/dl (74-100); Total Protein,Serum 6.4 g/dl (6.3-8.2)
[2022-01-09 08:26] LABS: Lactic Acid 0.9 mmol/L (0.7-2.1); Magnesium 1.8 mg/dl (1.6-2.3)
--- NOTE | 2022-01-09 08:33 | PC.NURSE ---
0545 pt arrived from emergency room via wheelchair to room 216, pt is alert and oriented x4, skin pwd, noted place on right heel that appeared to be healing from a possible injury, area is less than dime size, pt does not remember how she hurt it, kyler hose applied, 1-2+ pitting edema noted to BLE, lungs CTA, abd large distended and tender, pt has pain pump implant with dilaudid infusing, antoinette MCKENZIE was made aware of pain pump. v/s obtained and noted b/p maintaining sbp 77-88 and dbp 36-42, Antoinette MCKENZIE made aware of b/p's and note order to give an additional IV bolus of 1000ml normal saline. 0600 Antoinette at bedside to assess, note order placed for usg and radiology called stating it could not be done until tuesday, order was then changed to ct abd w/o contrast. 0630 attempting to draw blood for lab at this time, pt will need to be transported to ct accompanied by nurse on monitor as pt's b/p remaining soft with sbp 77 and dpb 36-38; noted telephone order to give 4th Liter bolus at this time. Attempting to obtain additional IV access at this time along with attempting to draw blood after numerous sticks. 0700 dr. song and antoinette mckenzie at bedside at this time, order placed for levo drip to be initiated at this time, give 500ml only of the ordered 4th bolus liter, report handoff given to mayda DURAN. Staff at bedside attempting to obtain blood for additional labs and blood cultures.
[2022-01-09 09:44] LABS: C-Reactive Protein 82.5 mg/L (0-4)
[2022-01-09 10:14] LABS: ABG Base Excess -6.6 mmol/L (-2.4-2.3); ABG HCO3 18.9 mmhg (22.0-26.0); ABG Oxygen Saturation 97 % (90-100); ABG PCO2 34.4 mmhg (35.0-45.0); ABG PH 7.36 mmol/L (7.35-7.45); ABG PO2 99.6 mmhg (80-100)
[2022-01-09 10:15] LABS: Allen's Test Acceptable; Oxygen 3 L NC %; Source Left Radial
--- NOTE | 2022-01-09 10:22 | EXP.SEPSISRE ---
[facility] Tissue Perfusion Eval Sepsis Re-Evaluation Performed: Yes Date Performed: 01/09/22 Time Performed: 09:46
--- NOTE | 2022-01-09 10:30 | [facility].PHAINT1 ---
Pharmacy Intervention Comments: MEDICATION RECONCILIATION COMPLETED ON PATIENT USING EXTERNAL FILL HISTORY FROM PHARMACY. -SCHUYLER MONTE, MORTEZAD
[2022-01-09 10:41] LABS: Microscopic, Urine URINE MICROSCOPIC (MICROSCOPIC)
[2022-01-09 10:49] LABS: Appearance,Urine CLEAR (Clear); Blood, Urine Negative (Negative); Color,Urine DK YELLOW (Yellow); Glucose,Urine (UA) Negative (Negative); Ketones,Urine Negative (Negative); Leukocyte Esterase,Urine Negative (Negative); Nitrate,Urine Negative (Negative); PH,Urine 5.5 (5.0-8.5); Protein,Urine Negative (Negative)
[2022-01-09 11:01] LABS: Creatinine,Urine Random 56 mg/dL (Not Estab.)
[2022-01-09 11:51] LABS: Bilirubin,Urine 1+ (Negative)
[2022-01-09 11:55] LABS: Amorphous Sediment,Urine 1+ /lpf; Bacteria,Urine Trace /lpf; Squamous Epithelial Cell,Urine Occasional #/hpf (0-5)
[2022-01-10] VITALS (17 sets, daily range): BP systolic 77–158; BP diastolic 39–74; PULSE 60–81; RESP 15–20; TEMP 36.4–36.9; O2SAT 93–99; BMI 53.3
--- NOTE | 2022-01-10 06:56 | PC.NURSE ---
Pt has c/o a headache t/o night. She also states that she has a stuffy nose. Medicated per apr. She is currently on Levophed @ 2 mcg/min. Titrated per protocol. Pt has had good urine output this shift. No BM. She has not c/o any discomfort to abdomen. No N/V. She has been able to drink. She is currently on RA at this time. Call light in place. Levophed titration 2 mcg/min start of shift 2345 - 4 mcg/min 0030 - 6 mcg/min 0236 - 4 mcg/min 0600 - 2 mcg/min
[2022-01-10 07:13] LABS: Sodium, Urine 41 mmol/L (Not Estab.)
[2022-01-10 09:16] LABS: Basophils # 0.1 K/mm3 (0-0.2); Basophils % 0.3 % (0.1-2.0); Eosinophils # 0.3 K/mm3 (0.0-0.4); Eosinophils % 1.5 % (0.1-12.0); Hematocrit 34.8 % (37.0-47.0); Hemoglobin 10.3 g/dL (12.2-16.2); Lymphocytes # 1.8 K/mm3 (0.7-4.5); Lymphocytes % 11.3 % (10-50); Mean Corpuscular HGB Conc 29.7 g/dL (31.8-35.4); Mean Corpuscular Hemoglobin 28.8 pg (27.0-31.2); Mean Corpuscular Volume 96.8 fl (81-99); Mean Platelet Volume 7.9 fl (7.4-10.4); Monocytes # 1.2 K/mm3 (0.1-1.0); Monocytes % 7.6 % (1.7-9.3); Neutrophils # 12.8 K/mm3 (1.8-7.8); Neutrophils % 79.3 % (37.0-80.0); Platelet Count 371 K/mm3 (142-424); Red Blood Count 3.59 M/mm3 (4.20-5.40); Red Cell Distribution Width 15.9 % (11.5-17.5); White Blood Count 16.1 K/mm3 (4.8-10.8)
[2022-01-10 09:39] LABS: MANUAL DIFFERENTIAL MANUAL DIFFERENTIAL (MANUAL DIFF)
[2022-01-10 09:56] LABS: Chloride 109 mmol/L (98-107); Potassium 3.8 mmoL/L (3.5-5.1); Sodium 138 mmol/L (136-145)
[2022-01-10 09:59] LABS: Alanine Aminotransferase 129 U/L (12-78); Albumin Level 3.1 g/dl (3.5-5.0); Albumin/Globulin Ratio 0.9 (1.1-1.8); Alkaline Phosphatase 314 U/L (38-126); Anion Gap 10.8 mEq/L (5-15); Aspartate Amino Transferase 97 U/L (14-36); Bilirubin,Total 0.9 mg/dl (0.2-1.3); Blood Urea Nitrogen 18 mg/dl (7-17); Calcium 7.9 mg/dl (8.4-10.2); Carbon Dioxide 22 mmol/L (22.0-30.0); Creatinine Clearance Estimated 41 mL/min (50-200); Estimated Glomerular Filt Rate 33 ml/min (>60); GFR (African American) 40 ML/MIN (>60); Globulin 3.6 g/dL (1.3-3.2); Glucose 70 mg/dl (74-100); Magnesium 2.2 mg/dl (1.6-2.3); Total Protein,Serum 6.7 g/dl (6.3-8.2)
--- NOTE | 2022-01-10 11:12 | EXP.ACUTE.PN ---
Subjective *Date: 01/10/22 *Time: 11:12 Interval history: Off of levo overnight. Doing much better today. Much more alert. Still having some abdominal pain but otherwise significantly improved. Having mild neuropathy in feet and hands. Medical Exam Vital signs and Labs for Last 24 Hours: Vital Signs Temp Pulse Pulse Resp BP Pulse Ox 01/10/22 10:00 79 16 124/63 99 01/10/22 09:00 74 16 117/69 95 01/10/22 08:00 67 18 108/65 L 96 01/10/22 07:00 71 18 105/64 L 93 L 01/10/22 06:00 73 16 110/54 L 96 01/10/22 05:00 66 20 98/55 L 95 01/10/22 04:00 70 01/10/22 03:00 70 15 117/63 98 01/10/22 02:00 69 16 111/58 L 97 01/10/22 04:00 97.5 F L 78 15 104/67 L 95 01/09/22 20:00 70 01/10/22 00:00 60 01/10/22 03:48 98 01/10/22 00:45 63 17 100/51 L 98 01/10/22 00:30 98.4 F 69 15 93/43 L 97 01/10/22 00:00 70 15 77/39 L 97 01/09/22 23:00 72 15 106/55 L 97 01/09/22 22:00 72 15 104/56 L 98 01/09/22 21:00 70 16 93/53 L 99 01/09/22 20:00 97.8 F 70 16 90/58 L 95 01/09/22 20:00 95 01/09/22 18:00 71 18 91/46 L 99 01/09/22 17:00 68 16 103/54 L 97 01/09/22 16:00 67 18 102/63 L 99 01/09/22 16:00 69 01/09/22 12:09 73 01/09/22 16:00 98.0 F 01/09/22 15:00 70 17 108/60 L 99 01/09/22 14:30 69 18 111/63 99 01/09/22 14:00 68 18 109/62 L 99 01/09/22 13:30 62 16 94/36 L 99 01/09/22 13:00 66 16 99/62 L 98 01/09/22 12:30 68 20 109/43 L 95 01/09/22 12:00 98.3 F 01/09/22 12:00 69 18 125/60 100 01/09/22 11:30 86 18 105/39 L 97 Intake and Output 01/09/22 01/10/22 01/10/22 23:59 07:59 15:59 Intake Total 4245 / 7745 1867 / 3067 1200 / 3067 Output Total 1580 / 2580 2250 / 2250 0 / 2250 Balance 2665 / 5165 -383 / 817 1200 / 817 Intake: Intake, Oral Amount 480 / 480 1200 / 1200 Intake, Total IV Amount 3765 / 7265 1867 / 1867 0.9 % Sodium Chloride 1,000 ml 2170 / 2170 1707 / 1707 @ 150 mls/hr IV .Q6H40M [facility] Rx# :[id number] 0.9 % Sodium Chloride 1,000 ml 1000 / 1000 @ 999 mls/hr IV .Q1H1M [facility] Rx#: [id number] Ceftriaxone Sodium 2 gm In 0.9 100 / 100 % Sodium Chloride 100 ml @ 200 mls/hr IV Q24H [facility] Rx#:[id number] Meropenem 0.5 gm In 0.9 % 100 / 100 100 / 100 Sodium Chloride 100 ml @ 100 mls/hr IV Q12H [facility] Rx#:[id number] Norepinephrine Bitartrate 8 mg 145 / 145 60 / 60 In Dextrose 5 % in Water 250 ml @ 10 MCG/MIN 19.35 mls/hr IV . [id number] [facility] Rx#:[id number] Vancomycin HCl 1,000 mg In 0.9 250 / 250 % Sodium Chloride 250 ml @ 125 mls/hr IV Q24H [facility] Rx#:[id number] Output: Output, Urine Amount 1380 / 1380 2250 / 2250 0 / 2250 Output, Urine Amount (Catheter) 200 / 1200 Trevino 200 / 1200 Other: Number of Unmeasured Voids 0 0 0 Weight 172.773 kg Patient Weight 01/10/22 23:59 Weight 172.773 kg Laboratory Results - last 24 hr 01/09/22 03:45: Cortisol 38.7 01/09/22 10:34: Urine Sodium 41 01/09/22 10:34: Urine Color Dk yellow, Urine Appearance Clear, Urine pH 5.5, Ur Specific [place] 1.010, Urine Protein Negative, Urine Glucose (UA) Negative, Urine Ketones Negative, Urine Blood Negative, Urine Nitrate Negative, Urine Bilirubin 1+ A, Urine Urobilinogen 1.0, Ur Leukocyte Esterase Negative, Urine WBC 3-5, Ur Squamous Epith Cells Occasional, Amorphous Sediment 1+, Urine Bacteria Trace 01/10/22 07:47: WBC 16.1 H, RBC 3.59 L, Hgb 10.3 L, Hct 34.8 L, MCV 96.8, MCH 28.8, MCHC 29.7 L, RDW 15.9, Plt Count 371, MPV 7.9, Neut % (Auto) 79.3, Lymph % (Auto) 11.3, [place] % (Auto) 7.6, Eos % (Auto) 1.5, Baso % (Auto) 0.3, Neut # (Auto) 12.8 H, Lymph # (Auto) 1.8, [place] # (Auto) 1.2 H, Eos # (Auto) 0.3, Baso # (Auto) 0.1 01/10/22 07:47: Sodium 138, Potassium 3.8, Chloride 109 H, Carbon Dioxide 22, Anion G
[2022-01-10 13:31] LABS: Lymphocytes % 15 % (10-50); Monocytes % 4 % (2-9); Neutrophils % 79 % (42-76); Platelet Estimate Normal; RBC Morphology Normal; Total Cells Counted 100
[2022-01-11] VITALS: PULSE 70
[2022-01-11 04:00] VITALS: BP 117/66; PULSE 69; PULSE 70; RESP 17; TEMP 36.7; O2SAT 97
[2022-01-11 05:00] VITALS: BMI 54.1
--- NOTE | 2022-01-11 06:30 | PC.NURSE ---
No acute changes this shift. Pt continues to c/o a headache. Medicated per apr. Pt has ambulated to BR without difficulty. VS has remained stable. call light within reach.
[2022-01-11 07:14] LABS: Basophils % 0.4 % (0.1-2.0); Eosinophils # 0.2 K/mm3 (0.0-0.4); Eosinophils % 2.6 % (0.1-12.0); Hematocrit 33.3 % (37.0-47.0); Hemoglobin 10.7 g/dL (12.2-16.2); Lymphocytes # 1.5 K/mm3 (0.7-4.5); Lymphocytes % 17.3 % (10-50); Mean Corpuscular HGB Conc 32.2 g/dL (31.8-35.4); Mean Corpuscular Hemoglobin 29.7 pg (27.0-31.2); Mean Corpuscular Volume 92.2 fl (81-99); Mean Platelet Volume 8.7 fl (7.4-10.4); Monocytes # 0.9 K/mm3 (0.1-1.0); Monocytes % 10.3 % (1.7-9.3); Neutrophils % 69.3 % (37.0-80.0); Platelet Count 377 K/mm3 (142-424); Red Blood Count 3.61 M/mm3 (4.20-5.40); Red Cell Distribution Width 16.5 % (11.5-17.5); White Blood Count 8.6 K/mm3 (4.8-10.8)
[2022-01-11 07:25] LABS: Alanine Aminotransferase 107 U/L (12-78); Albumin/Globulin Ratio 0.9 (1.1-1.8); Alkaline Phosphatase 274 U/L (38-126); Anion Gap 14.7 mEq/L (5-15); Aspartate Amino Transferase 62 U/L (14-36); Bilirubin,Total 0.3 mg/dl (0.2-1.3); Blood Urea Nitrogen 12 mg/dl (7-17); Calcium 8.4 mg/dl (8.4-10.2); Carbon Dioxide 26 mmol/L (22.0-30.0); Chloride 102 mmol/L (98-107); Creatinine Clearance Estimated 60 mL/min (50-200); Estimated Glomerular Filt Rate 51 ml/min (>60); GFR (African American) 62 ML/MIN (>60); Globulin 3.5 g/dL (1.3-3.2); Glucose 85 mg/dl (74-100); Magnesium 1.9 mg/dl (1.6-2.3); Phosphorous 2.5 mg/dl (2.5-4.5); Potassium 3.7 mmoL/L (3.5-5.1); Sodium 139 mmol/L (136-145); Total Protein,Serum 6.5 g/dl (6.3-8.2)
--- NOTE | 2022-01-11 07:45 | EXP.PHA.CONS ---
Pharmacy Consult Date: 01/11/22 Time: 07:46 Referring provider: DR. Charu SMITH Reason for Consult:: VANCOMYCIN DOSE ADJUSTMENT Allergies Allergy/AdvReac Type Severity Reaction Status Date / Time Penicillins Allergy Verified 12/16/21 11:24 Home Medications Medication Instructions Recorded Confirmed Type buspirone 10 mg tablet 10 mg PO TIDP PRN Anxiety 30 days 09/19/17 01/09/22 History linaclotide 72 mcg capsule 72 mcg PO DAILY ibs 30 days 09/19/17 01/09/22 History levothyroxine 137 mcg tablet 137 mcg PO DAILY hypothryoidism 03/06/19 01/09/22 History montelukast 10 mg tablet 10 mg PO PM allergies 04/30/20 01/09/22 History hydromorphone (PF) 1 mg/mL 0.15 mg intrathecal CONT PRN 07/31/20 01/09/22 History injection syringe chronic pain bupropion HCl 150 mg tablet,12 hr 150 mg PO DAILY mood 09/05/20 01/09/22 History sustained-release esomeprazole magnesium 40 mg 40 mg PO DAILY GERD 09/05/20 01/09/22 History capsule,delayed release prucalopride 2 mg tablet 2 mg PO DAILY bowels 09/05/20 01/09/22 History (Motegrity) aspirin 81 mg tablet,delayed 81 mg PO DAILY heart health 09/15/20 01/09/22 History release dicyclomine 10 mg capsule 20 mg PO TID STOMACH PAIN 09/29/20 01/09/22 History latanoprost 0.005 % eye drops 1 drp OPHTHALMIC HS Glaucoma 09/29/20 01/09/22 History cyclobenzaprine 10 mg tablet 10 mg PO TID stomach pain 11/03/20 01/09/22 History ascorbate calcium (vitamin C) 500 500 mg PO DAILY SUPPLIMENT 07/08/21 01/09/22 History mg tablet atorvastatin 40 mg tablet 40 mg PO DAILY Cholesterol #90 tabs 07/08/21 01/09/22 Rx lisinopril 20 1 tab PO DAILY blood pressure #90 07/08/21 01/09/22 Rx mg-hydrochlorothiazide 12.5 mg tabs tablet melatonin 10 mg capsule 10 mg PO HSP PRN Sleep 07/08/21 01/09/22 History multivitamin 1 tab PO DAILY Supplement 07/08/21 01/09/22 History spironolactone 50 mg tablet 50 mg PO DAILY fluid retention #90 07/08/21 01/09/22 Rx tabs zinc acetate 25 mg (zinc) capsule 25 mg PO DAILY SUPPLIMENT 07/08/21 01/09/22 History (Galzin) furosemide 80 mg tablet 40 mg PO BID swelling #180 tabs 08/07/21 01/09/22 Rx famotidine 20 mg tablet 20 mg PO DAILY GERD 08/21/21 01/09/22 History estradiol 2 mg tablet 2 mg PO DAILY HORMONE REPLACEMENT 01/08/22 01/09/22 History gabapentin 300 mg capsule 300 mg PO TID neuropathy 01/08/22 01/09/22 History meloxicam 15 mg tablet 15 mg PO DAILY Pain 01/09/22 01/09/22 History oxycodone-acetaminophen 7.5 mg-325 1 tab PO Q6HP PRN Pain 01/09/22 01/09/22 History mg tablet ropinirole 1 mg tablet 1 mg PO HS Restless leg 01/09/22 01/09/22 History New Prescriptions to Start Prescriptions: Height: 1.8 m Weight: 175.313 kg Laboratory Results:: Laboratory Results - last 24 hr 01/10/22 07:47: WBC 16.1 H, RBC 3.59 L, Hgb 10.3 L, Hct 34.8 L, MCV 96.8, MCH 28.8, MCHC 29.7 L, RDW 15.9, Plt Count 371, MPV 7.9, Neut % (Auto) 79.3, Lymph % (Auto) 11.3, [place] % (Auto) 7.6, Eos % (Auto) 1.5, Baso % (Auto) 0.3, Neut # (Auto) 12.8 H, Lymph # (Auto) 1.8, [place] # (Auto) 1.2 H, Eos # (Auto) 0.3, Baso # (Auto) 0.1, Total Counted 100, Neutrophils % (Manual) 79 H, Band Neutrophils % 2.0, Lymphocytes % (Manual) 15, Monocytes % (Manual) 4, Platelet Estimate Normal, RBC Morphology Normal 01/10/22 07:47: Sodium 138, Potassium 3.8, Chloride 109 H, Carbon Dioxide 22, Anion Gap 10.8, BUN 18 H D, Creatinine 1.60 H D, Estimated Creat Clear 41, Estimated GFR 33 L, Est GFR ( Amer) 40 L D, Glucose 70 L, Calcium 7.9 L, Phosphorus 2.0 L, Magnesium 2.2 D, Total Bilirubin 0.9, AST 97 H, ALT 129 H, Alkaline Phosphatase 314 H, Total Protein 6.7, Albumin 3.1 L, Globulin 3.6 H, Albumin/Globulin Ratio 0.9 L 01/11/22 05:55: WBC 8.6 D, RBC 3.61 L, Hgb 10.7 L, Hct 33.3 L, MCV 92.2, MCH 29.7, MCHC 32.2, RDW 16.5, Plt Count 377, MPV 8.7, Neut % (Auto) 69.3, Lymph % (Auto) 17.3, [place] % (Auto) 10.3 H, Eos % (Auto) 2.6, Baso % (Auto) 0.4, Neut # (Auto) 6.0, Lymph # (Auto) 1.5, [place] # (Auto) 0.9, Eos # (Auto) 0.2, Ba
[2022-01-11 08:00] VITALS: BP 133/73; PULSE 75; PULSE 80; RESP 20; TEMP 36.9; O2SAT 97
--- NOTE | 2022-01-11 08:23 | US_ITS ---
FINAL REPORT CLINICAL HISTORY: liver failure, FINDINGS: Sonographic images of the right upper quadrant were obtained. The pancreas is partially obscured. Gallbladder is absent. There is dilatation of the portal vein with normal direction of flow. The liver is fatty infiltrated and mildly enlarged. IMPRESSION: Dilatation of the portal vein with normal directional flow. Mildly enlarged, fatty infiltrated liver. Reviewed, Interpreted and Dictated by Sebastien Bolivar MD Transcribed by Lorraine Davila Authenticated and . [facility]
--- NOTE | 2022-01-11 08:29 | ECG_ITS ---
APPROVED REPORT Exam: Resting ECG HR:75 bpm ECG Measurements Heart Rate 75 AXES TN 147 P 49 QRSd 101 QRS -24 QT 339 T 30 QTc 367 Conclusion SINUS RHYTHM BORDERLINE LEFT AXIS DEVIATION [QRS AXIS < -20] LOW QRS VOLTAGE IN PRECORDIAL LEADS [QRS DEFLECTION < 1.0 mV IN CHEST LEADS] BORDERLINE ECG UNCONFIRMED REPORT Electronically signed by : Dandy Del Toro MD 01/12/2022 20:19:36
--- NOTE | 2022-01-11 10:30 | EXP.PULM.CON ---
History of Present Illness History of present illness: Ms. Bergman is a 56-year-old female prior smoker prior history of meningitis and recurrent pancreatitis presented to the hospital with worsening abdominal pain and hemodynamic instability needing pressor requirements concerning for septic shock and pulmonary was called for further evaluation [facility] Medical History (Updated 01/11/22 @ 14:56 by Taylor Fitzgerald MD) Abdominal pain Abnormal electrocardiography Bradycardia CAD (coronary artery disease) Chest pain Dizziness Dyspnea Edema Ex-smoker Fatigue Headache HTN (hypertension) Hyperlipidemia IBS (irritable bowel syndrome) Morbid obesity BRAULIO (obstructive sleep apnea) Positive JOSE (antinuclear antibody) Post hysterectomy menopause UTI (urinary tract infection) Surgical History (Updated 01/09/22 @ 06:00 by Kenna Julien, RN) History of cholecystectomy History of colonoscopy Family History (Updated 01/09/22 @ 05:58 by Kenna Julien, RN) Other Breast cancer Colon cancer Heart disease Lung cancer Stroke Social History (Updated 01/09/22 @ 06:02 by Kenna Julien, RN) Smoking Status: Former smoker alcohol intake: former substance use type: denies use current occupational status: unemployed Travel in the last 8 weeks: Inside the [place] household members: spouse and children housing: house current occupational exposures/hazards: No caffeine: Yes Review of Systems Constitutional Constitutional: Denies anorexia, Reports body ache(s), Reports fatigue and Reports headache(s) Eyes Eyes: Denies itchy eyes and Denies loss of vision ENT Ears, Nose, Mouth, and Throat: Denies dizziness, Reports headache(s), Denies lip swelling and Denies throat swelling *Cardiovascular Cardiovascular: Denies dyspnea and Reports dyspnea on exertion *Respiratory Respiratory: Denies chest congestion, Denies dyspnea, Reports dyspnea on exertion, Denies excessive phlegm production and Denies wheezing *Gastrointestinal Gastrointestinal: Denies abdominal pain, Denies belching and Denies cramping *Musculoskeletal Musculoskeletal: Denies numbness and Denies tingling *Neurologic Neurologic: Reports system reviewed and no additional complaints, except as documented, Denies dizziness, Reports headache(s), Denies loss of vision, Denies numbness and Denies tingling Psychiatric Psychiatric: Denies homicidal ideation and Denies suicidal ideation Endocrine Endocrine: Reports fatigue and Denies heat intolerance Hematologic/Lymphatic Hematologic/Lymphatic: Denies easy bleeding and Denies lymphadenopathy Allergic/Immunologic Allergic/Immunologic: Denies itchy eyes, Denies lip swelling, Denies throat swelling and Denies wheezing Pulmonology Exam Inpatient Vital signs and Labs for Last 24 Hours: Temp Pulse Resp BP Pulse Ox 98.4 F 75 20 133/73 97 01/11/22 08:00 01/11/22 08:00 01/11/22 08:00 01/11/22 08:00 01/11/22 08:00 Laboratory Results - last 24 hr 01/10/22 07:47: Total Counted 100, Neutrophils % (Manual) 79 H, Band Neutrophils % 2.0, Lymphocytes % (Manual) 15, Monocytes % (Manual) 4, Platelet Estimate Normal, RBC Morphology Normal 01/11/22 05:55: WBC 8.6 D, RBC 3.61 L, Hgb 10.7 L, Hct 33.3 L, MCV 92.2, MCH 29.7, MCHC 32.2, RDW 16.5, Plt Count 377, MPV 8.7, Neut % (Auto) 69.3, Lymph % (Auto) 17.3, [place] % (Auto) 10.3 H, Eos % (Auto) 2.6, Baso % (Auto) 0.4, Neut # (Auto) 6.0, Lymph # (Auto) 1.5, [place] # (Auto) 0.9, Eos # (Auto) 0.2, Baso # (Auto) 0.0 01/11/22 05:55: Sodium 139, Potassium 3.7, Chloride 102, Carbon Dioxide 26, Anion Gap 14.7, BUN 12 D, Creatinine 1.10 H D, Estimated Creat Clear 60, Estimated GFR 51 L, Est GFR ( Amer) 62 D, Glucose 85 D, Calcium 8.4, Phosphorus 2.5, Magnesium 1.9 D, Total Bilirubin 0.3, AST 62 H D, ALT 107 H, Alkaline Phosphatase 274 H, Total Protein 6.5, Albumin 3.0 L, Globulin 3.5 H, Albumin/Globulin Ratio 0.9 L I & O for Labs for Last 24 Hours: Intake & Output
--- NOTE | 2022-01-11 11:22 | FL_ITS ---
FINAL REPORT CLINICAL HISTORY: r/o meningitis pressure: 22 FINDINGS: LUMBAR PUNCTURE AND FLUOROSCOPY HISTORY: Headaches ATTENDING PHYSICIAN: Dr. Bolivar PHYSICIAN VOICE PATHOLOGIST: Alek Hernandez PA-C PROCEDURE: After informed consent was obtained and timeout procedure performed, the patient was placed in the prone position in the fluoroscopic suite. The L3-L4 level of the lumbar spine was localized under fluoroscopic guidance and marked on the skin appropriately. The patient was then prepped and draped in the usual sterile fashion and the skin was anesthetized with 1% Lidocaine. A lumbar puncture was then performed under direct fluoroscopic guidance at the L3-L4 level using a 20-gauge 6'' needle. The patient was subsequently rolled into the left lateral decubitus position and opening pressure was measured at 22 cm of water. Approximately 10 ml of clear cerebrospinal fluid was removed and sent to the laboratory for studies. Closing pressure was measured at 18 cm of water. The patient tolerated the procedure well and there were no immediate complications. IMPRESSION: Technically successful lumbar puncture as above. Fluoroscopy time: 47 seconds. Single radiograph was obtained. Films reviewed , interpreted and dictated by Dr. Bolivar. Transcribed by Alek Walters PA-C. Reviewed, Interpreted and Dictated by Sebastien Bolivar MD Transcribed by MAXIMILIANO Tripathi Authenticated and [facility]
--- NOTE | 2022-01-11 11:23 | CT_ITS ---
FINAL REPORT TECHNIQUE: Noncontrast exam CLINICAL HISTORY: rule out space occupied lesion FINDINGS: No abnormal density is seen. Ventricles are normal. There is no hemorrhage. No mass effect is seen. Bone windows show no evidence of fracture. IMPRESSION: No acute findings Reviewed, Interpreted and Dictated by Sebastien Bolivar MD Transcribed by Don Anderson Authenticated and [facility]
[2022-01-11 13:27] LABS: Glucose,CSF 50 mg/dl (40-70)
[2022-01-11 13:34] LABS: Cytoplasmic (C-ANCA) <1:20 titer (Neg:<1:20); Perinuclear (P-ANCA) <1:20 titer (Neg:<1:20)
[2022-01-11 13:39] LABS: Appearance,CSF Clear (Clear); Red Blood Cell,CSF 6 cells/uL (0); Volume,CSF 11 mL; White Blood Cell,CSF 1 cells/uL (0-5)
[2022-01-11 14:16] LABS: Mononuclear WBCs,CSF 0 %; Polynuclear WBCs,CSF 0 %
[2022-01-11 15:13] LABS: Anti-Centromere B Antibodies <0.2 AI (0.0-0.9); Anti-DNA (DS) Ab Qn 14 IU/mL (0-9); Anti-Jo-1 <0.2 AI (0.0-0.9); Antichromatin Antibodies 2.6 AI (0.0-0.9); Antiscleroderma-70 Antibodies <0.2 AI (0.0-0.9); RNP Antibodies 1.3 AI (0.0-0.9); Sjogren's Anti-SS-A >8.0 AI (0.0-0.9); Sjogren's Anti-SS-B 0.2 AI (0.0-0.9)
[2022-01-11 16:00] VITALS: BP 142/66; PULSE 82; RESP 20; TEMP 36.9; O2SAT 94
--- NOTE | 2022-01-11 16:10 | PC.NURSE ---
Pt is alert and oriented x4. Abdomen is soft and round, nontender. Bowel sounds active x4. She complained of a headache this am. Imitrex administered per mar, relief reported on reassessment. +2 edema to BLE. Some bruising noted to BUE. She's ambulated to the bathroom with assist x1. Teds are off at this time per patient request. She is currently resting in bed with her eyes closed. Bed is locked and in the lowest position, call light is within reach.
[2022-01-11 20:00] VITALS: BP 147/71; PULSE 71; RESP 18; TEMP 36.7; O2SAT 95
--- NOTE | 2022-01-11 20:44 | EXP.ACUTE.PN ---
Subjective *Date: 01/11/22 *Time: 08:00 Interval history: No issues overnight. This morning when I went to evaluate the patient and turn on the lights she covered her eyes and said the light was hurting her eyes. She endorsed severe migraine . She also has neck stiffness. When telling her I was concerned that she had meningitis she says that she has had that 3 times in the past. Medical Exam Vital signs and Labs for Last 24 Hours: Vital Signs Temp Pulse Pulse Resp BP Pulse Ox 01/11/22 20:00 98.0 F 71 18 147/71 H 95 01/11/22 16:00 98.5 F 82 20 142/66 H 94 L 01/11/22 08:00 80 01/11/22 08:00 98.4 F 75 20 133/73 97 01/11/22 04:00 70 01/11/22 00:00 70 01/11/22 04:00 98.1 F 69 17 117/66 97 01/10/22 23:49 98.3 F 75 19 109/57 L 94 L Intake and Output 01/11/22 01/11/22 01/11/22 07:59 15:59 23:59 Intake Total 60 / 3341 2516 / 3341 765 / 3341 Output Total 450 / 450 0 / 450 Balance -390 / 2891 2516 / 2891 765 / 2891 Intake: Intake, Oral Amount 60 / 580 280 / 580 240 / 580 Intake, Total IV Amount 2236 / 2761 525 / 2761 0.9 % Sodium Chloride 1,000 ml 2236 / 2761 525 / 2761 @ 150 mls/hr IV .Q6H40M [facility] Rx# :[id number] Output: Output, Urine Amount 450 / 450 0 / 450 Other: Number of Voids 0 Number of Bowel Movements 0 Weight 175.313 kg Patient Weight 01/11/22 23:59 Weight 175.313 kg Laboratory Results - last 24 hr 01/10/22 07:47: JOSE Comment Comment, c-ANCA Antibody <1:20, Atypical p-ANCA <1:20, p-ANCA Antibody <1:20, JOSH-1 Antibody <0.2, SS-A Antibody >8.0 H, SS-B Antibody 0.2, Sm (Patel) Antibody 0.3, ASSOCIATE Antibody 1.3 H, Scl-70 Scleroderma Ab <0.2, Double Strand DNA Ab 14 H, Chromatin Antibody 2.6 H, Centromere B Antibody <0.2 01/11/22 05:55: WBC 8.6 D, RBC 3.61 L, Hgb 10.7 L, Hct 33.3 L, MCV 92.2, MCH 29.7, MCHC 32.2, RDW 16.5, Plt Count 377, MPV 8.7, Neut % (Auto) 69.3, Lymph % (Auto) 17.3, [place] % (Auto) 10.3 H, Eos % (Auto) 2.6, Baso % (Auto) 0.4, Neut # (Auto) 6.0, Lymph # (Auto) 1.5, [place] # (Auto) 0.9, Eos # (Auto) 0.2, Baso # (Auto) 0.0 01/11/22 05:55: Sodium 139, Potassium 3.7, Chloride 102, Carbon Dioxide 26, Anion Gap 14.7, BUN 12 D, Creatinine 1.10 H D, Estimated Creat Clear 60, Estimated GFR 51 L, Est GFR ( Amer) 62 D, Glucose 85 D, Calcium 8.4, Phosphorus 2.5, Magnesium 1.9 D, Total Bilirubin 0.3, AST 62 H D, ALT 107 H, Alkaline Phosphatase 274 H, Total Protein 6.5, Albumin 3.0 L, Globulin 3.5 H, Albumin/Globulin Ratio 0.9 L 01/11/22 11:56: CSF Glucose 50, CSF Total Protein 52.0 01/11/22 11:59: CSF Volume 11, CSF Appearance Clear, CSF WBC 1, CSF RBC 6, CSF Mononuclear WBCs % 0, CSF Polynuclear WBCs % 0 I & O for Labs for Last 24 Hours: Intake & Output 01/08/22 01/09/22 01/10/22 01/11/22 23:59 23:59 23:59 23:59 Intake Total 7745 / 7745 4956 / 5016 3341 / 3341 Output Total 2580 / 2580 4850 / 4850 450 / 450 Balance 5165 / 5165 106 / 166 2891 / 2891 Weight 170.324 kg 172.773 kg 175.313 kg Microbiology Reports for the Last 24 Hours: Microbiology 01/11/22 11:56 Cerebral Spinal Fluid Gram Stain - Final 01/09/22 07:54 Blood Blood Culture - Preliminary NO GROWTH AFTER 48 HOURS 01/09/22 07:54 Blood Blood Culture - Preliminary NO GROWTH AFTER 48 HOURS Constitutional: Present mild distress and morbidly obese Comment:: Discomfort. Head: Present atraumatic and normocephalic Eyes: Present other (Photophobia) Neck: Present meningismus Comment:: Nuchal rigidity meningismus Respiratory: Present CTA bilaterally; Absent accessory muscle use, rhonchi or crackles Cardiac: Present Reg Rate and Rhythm GI: Present soft Rectal (female): Present deferred (female): Present deferred Extremities: Present normal inspection and tenderness Skin: Present intact and dry; Absent petechiae Assessment and Plan *Assessment and plan (1) Epigastric
[2022-01-11 20:56] VITALS: BMI 54.1
[2022-01-12] VITALS: BP 121/58; PULSE 71; RESP 20; TEMP 36.9; O2SAT 96
[2022-01-12 04:00] VITALS: BP 145/75; PULSE 67; RESP 20; TEMP 36.6; O2SAT 100
[2022-01-12 04:21] VITALS: BMI 54.8
[2022-01-12 07:25] LABS: Basophils # 0.1 K/mm3 (0-0.2); Basophils % 0.8 % (0.1-2.0); Eosinophils # 0.2 K/mm3 (0.0-0.4); Eosinophils % 3.1 % (0.1-12.0); Hematocrit 34.1 % (37.0-47.0); Hemoglobin 10.8 g/dL (12.2-16.2); Lymphocytes # 1.8 K/mm3 (0.7-4.5); Lymphocytes % 24.1 % (10-50); Mean Corpuscular HGB Conc 31.7 g/dL (31.8-35.4); Mean Corpuscular Hemoglobin 29.6 pg (27.0-31.2); Mean Corpuscular Volume 93.4 fl (81-99); Mean Platelet Volume 8.3 fl (7.4-10.4); Monocytes # 0.6 K/mm3 (0.1-1.0); Monocytes % 8.5 % (1.7-9.3); Neutrophils # 4.7 K/mm3 (1.8-7.8); Neutrophils % 63.5 % (37.0-80.0); Platelet Count 369 K/mm3 (142-424); Red Blood Count 3.65 M/mm3 (4.20-5.40); Red Cell Distribution Width 16.1 % (11.5-17.5); White Blood Count 7.5 K/mm3 (4.8-10.8)
[2022-01-12 07:33] LABS: Alanine Aminotransferase 81 U/L (12-78); Albumin Level 3.1 g/dl (3.5-5.0); Albumin/Globulin Ratio 0.9 (1.1-1.8); Alkaline Phosphatase 255 U/L (38-126); Anion Gap 14.7 mEq/L (5-15); Aspartate Amino Transferase 43 U/L (14-36); Bilirubin,Total 0.3 mg/dl (0.2-1.3); Blood Urea Nitrogen 10 mg/dl (7-17); Calcium 8.8 mg/dl (8.4-10.2); Carbon Dioxide 27 mmol/L (22.0-30.0); Chloride 101 mmol/L (98-107); Creatinine Clearance Estimated 66 mL/min (50-200); Estimated Glomerular Filt Rate 57 ml/min (>60); GFR (African American) 69 ML/MIN (>60); Globulin 3.5 g/dL (1.3-3.2); Glucose 96 mg/dl (74-100); Phosphorous 3.6 mg/dl (2.5-4.5); Potassium 3.7 mmoL/L (3.5-5.1); Sodium 139 mmol/L (136-145); Total Protein,Serum 6.6 g/dl (6.3-8.2)
[2022-01-12 07:42] LABS: Magnesium 1.9 mg/dl (1.6-2.3)
[2022-01-12 08:00] VITALS: BP 131/75; PULSE 98; RESP 18; TEMP 36.7; O2SAT 97
[2022-01-12 08:07] VITALS: PULSE 98; O2SAT 97
--- NOTE | 2022-01-12 08:09 | P.PN_ITS ---
Subjective *Date: 01/12/22 *Time: 08:09 Medical Exam Vital signs and Labs for Last 24 Hours: Vital Signs Temp Pulse Resp BP Pulse Ox 01/12/22 04:00 97.9 F 67 20 145/75 H 100 01/12/22 00:00 98.4 F 71 20 121/58 L 96 01/11/22 20:00 98.0 F 71 18 147/71 H 95 01/11/22 16:00 98.5 F 82 20 142/66 H 94 L Intake and Output 01/11/22 01/12/22 01/12/22 23:59 07:59 15:59 Intake Total 765 / 3341 Output Total 0 / 450 0 / 0 Balance 765 / 2891 0 / 0 Intake: Intake, Oral Amount 240 / 580 Intake, Total IV Amount 525 / 2761 0.9 % Sodium Chloride 1,000 ml 525 / 2761 @ 150 mls/hr IV .Q6H40M [facility] Rx# :[id number] Output: Output, Urine Amount 0 / 450 0 / 0 Other: Number of Unmeasured Voids 1 1 Weight 175.313 kg 177.553 kg Patient Weight 01/12/22 23:59 Weight 177.553 kg Laboratory Results - last 24 hr 01/10/22 07:47: JOSE Comment Comment, c-ANCA Antibody <1:20, Atypical p-ANCA <1:20, p-ANCA Antibody <1:20, JOSH-1 Antibody <0.2, SS-A Antibody >8.0 H, SS-B Antibody 0.2, Sm (Patel) Antibody 0.3, REFRIGERATION SYSTEMS INSTALLER Antibody 1.3 H, Scl-70 Scleroderma Ab <0.2, Double Strand DNA Ab 14 H, Chromatin Antibody 2.6 H, Centromere B Antibody <0.2 01/11/22 11:56: CSF Glucose 50, CSF Total Protein 52.0 01/11/22 11:59: CSF Volume 11, CSF Appearance Clear, CSF WBC 1, CSF RBC 6, CSF Mononuclear WBCs % 0, CSF Polynuclear WBCs % 0 01/12/22 06:31: WBC 7.5, RBC 3.65 L, Hgb 10.8 L, Hct 34.1 L, MCV 93.4, MCH 29.6, MCHC 31.7 L, RDW 16.1, Plt Count 369, MPV 8.3, Neut % (Auto) 63.5, Lymph % (Auto) 24.1, [place] % (Auto) 8.5, Eos % (Auto) 3.1, Baso % (Auto) 0.8, Neut # (Auto) 4.7, Lymph # (Auto) 1.8, [place] # (Auto) 0.6, Eos # (Auto) 0.2, Baso # (Auto) 0.1 01/12/22 06:31: Sodium 139, Potassium 3.7, Chloride 101, Carbon Dioxide 27, Anion Gap 14.7, BUN 10, Creatinine 1.00, Estimated Creat Clear 66, Estimated GFR 57 L, Est GFR ( Amer) 69, Glucose 96, Calcium 8.8, Phosphorus 3.6 D, Total Bilirubin 0.3, AST 43 H D, ALT 81 H, Alkaline Phosphatase 255 H, Total Protein 6.6, Albumin 3.1 L, Globulin 3.5 H, Albumin/Globulin Ratio 0.9 L 01/12/22 06:31: Magnesium 1.9 I & O for Labs for Last 24 Hours: Intake & Output 01/09/22 01/10/22 01/11/22 01/12/22 23:59 23:59 23:59 23:59 Intake Total 7745 / 7745 4956 / 5016 3341 / 3341 Output Total 2580 / 2580 4850 / 4850 450 / 450 0 / 0 Balance 5165 / 5165 106 / 166 2891 / 2891 0 / 0 Weight 170.324 kg 172.773 kg 175.313 kg 177.553 kg Microbiology Reports for the Last 24 Hours: Microbiology 01/11/22 11:56 Cerebral Spinal Fluid Gram Stain - Final 01/09/22 07:54 Blood Blood Culture - Preliminary NO GROWTH AFTER 48 HOURS 01/09/22 07:54 Blood Blood Culture - Preliminary NO GROWTH AFTER 48 HOURS
[2022-01-12 10:09] LABS: Vancomycin,Trough 16.6 ug/mL (5.0-10.0)
--- NOTE | 2022-01-12 10:16 | EXP.PULM.PN ---
Subjective *Date: 01/12/22 *Time: 15:29 Interval history: No acute respiratory events overnight. Continues to remain on room air. Pulmonology Exam Inpatient Vital signs and Labs for Last 24 Hours: Temp Pulse Resp BP Pulse Ox 98.0 F 98 H 18 131/75 97 01/12/22 08:00 01/12/22 08:07 01/12/22 08:00 01/12/22 08:00 01/12/22 08:07 Laboratory Results - last 24 hr 01/10/22 07:47: JOSE Comment Comment, c-ANCA Antibody <1:20, Atypical p-ANCA <1:20, p-ANCA Antibody <1:20, JOSH-1 Antibody <0.2, SS-A Antibody >8.0 H, SS-B Antibody 0.2, Sm (Patel) Antibody 0.3, ELECTRICAL ENGINEER MEP Antibody 1.3 H, Scl-70 Scleroderma Ab <0.2, Double Strand DNA Ab 14 H, Chromatin Antibody 2.6 H, Centromere B Antibody <0.2 01/11/22 11:56: CSF Glucose 50, CSF Total Protein 52.0 01/11/22 11:59: CSF Volume 11, CSF Appearance Clear, CSF WBC 1, CSF RBC 6, CSF Mononuclear WBCs % 0, CSF Polynuclear WBCs % 0 01/12/22 06:31: WBC 7.5, RBC 3.65 L, Hgb 10.8 L, Hct 34.1 L, MCV 93.4, MCH 29.6, MCHC 31.7 L, RDW 16.1, Plt Count 369, MPV 8.3, Neut % (Auto) 63.5, Lymph % (Auto) 24.1, [place] % (Auto) 8.5, Eos % (Auto) 3.1, Baso % (Auto) 0.8, Neut # (Auto) 4.7, Lymph # (Auto) 1.8, [place] # (Auto) 0.6, Eos # (Auto) 0.2, Baso # (Auto) 0.1 01/12/22 06:31: Sodium 139, Potassium 3.7, Chloride 101, Carbon Dioxide 27, Anion Gap 14.7, BUN 10, Creatinine 1.00, Estimated Creat Clear 66, Estimated GFR 57 L, Est GFR ( Amer) 69, Glucose 96, Calcium 8.8, Phosphorus 3.6 D, Total Bilirubin 0.3, AST 43 H D, ALT 81 H, Alkaline Phosphatase 255 H, Total Protein 6.6, Albumin 3.1 L, Globulin 3.5 H, Albumin/Globulin Ratio 0.9 L 01/12/22 06:31: Magnesium 1.9 01/12/22 09:10: Vancomycin Trough 16.6 H I & O for Labs for Last 24 Hours: Intake & Output 01/09/22 01/10/22 01/11/22 01/12/22 23:59 23:59 23:59 23:59 Intake Total 7745 / 7745 4956 / 5016 3341 / 3341 480 / 480 Output Total 2580 / 2580 4850 / 4850 450 / 450 0 / 0 Balance 5165 / 5165 106 / 166 2891 / 2891 480 / 480 Weight 375 lb 8 oz 380 lb 14.4 oz 386 lb 7.984 oz 391 lb 7 oz Microbiology Reports for the Last 24 Hours: Microbiology 01/11/22 11:56 Cerebral Spinal Fluid Gram Stain - Final 01/09/22 07:54 Blood Blood Culture - Preliminary NO GROWTH AFTER 48 HOURS 01/09/22 07:54 Blood Blood Culture - Preliminary NO GROWTH AFTER 48 HOURS Constitutional: Present mild distress Head: Present normocephalic and atraumatic ENT: Present normal exam, normal oropharynx and mucous membranes moist Neck: Present normal inspection and full ROM Respiratory: Present able to speak in complete sentences; Absent respiratory distress, wheezes or crackles Cardiac: Present S1/S2, Tachycardia and radial pulses present GI: Present soft and distention; Absent tenderness or guarding Rectal (female): Present deferred (female): Present deferred Skin: Present intact; Absent cyanosis or jaundice Neuro: Present alert, awake and oriented x 3 Extremities: Present normal inspection; Absent clubbing or cyanosis Psychiatric: Present normal affect and cooperative Assessment and Plan *Assessment and plan (1) Abdominal pain: Status: Acute Category: Medical Code(s): R10.9 - Unspecified abdominal pain (2) Headache: Status: Acute Category: Medical Code(s): R51.9 - Headache, unspecified (3) Positive JOSE (antinuclear antibody): Status: Acute Category: Medical Code(s): R76.8 - Other specified abnormal immunological findings in serum Plan Ms. Bergman is a 56-year-old female history of CAD, hypertension, sphincter of Oddi dysfunction presented to the hospital over the weekend with abdominal pain found to be in septic shock needing pressor documents and pulmonary was called for further evaluation. Patient was initiated on meropenem upon admission as concerning for intra-abdominal source especially in the setting of her sphincter of Oddi dysfunction with prior pancreatitis.
[2022-01-12 11:14] LABS: Albumin, CSF 16 mg/dL (8-37)
[2022-01-12 11:37] VITALS: BP 131/78; PULSE 60; RESP 18; TEMP 36.5; O2SAT 98
--- NOTE | 2022-01-12 15:03 | EXP.DC.SUM ---
General Admission date:: 01/09/22 Discharge date: 01/12/22 HPI HPI HPI: This is a 56-year-old female with past medical history of coronary artery disease, hypertension, sphincter of Oddi dysfunction with past history of pancreatitis presents emergency department today with 3 days complaint of abdominal pain. She has been seen twice in the emergency department over the last 3 days with today being her third visit. She is undergone full work-ups on all [address] yesterday showed hepatomegaly. Lipase yesterday was 85 today it is 166. Today she complains of ongoing anorexia, nausea and epigastric pain. She does endorse cholecystectomy approximately 30 years ago and has had ERCP in the past but no stone was found only sphincter of Oddi dysfunction. She reports being lightheaded and clammy. Given the above-mentioned complaint she will be admitted to the hospitalist service for further evaluation and. Hospital Course Hospital Course Hospital Course: 56-year-old female admitted with abdominal pain and severe sepsis with septic shock. She required Levophed the entire day of admission but has been successfully weaned off.? Sx rapidly defervesced, able to advance diet. Remained afebrile. Meningitis ruled out. DC'd home in stable condition. Problems addressed as follows: Headache - Initial concern for meningitis due to sepsis on arrival along with PAYNE and light sensitivity. Hx of 2 prior episodes of meningitis and indwelling pain pump. LP however with 1 WBC and no growth or findings on staining. Protein and glucose WNL. stopped empiric therapy for meningitis as she clinically appears to have had a severe migraine that improved with imitrex. Recommend considering alternative CGRP therapy in the outpatient setting for her migraines as she does not want to continue to take Imitrex. Severe sepsis with septic shock resolved -Uncertain etiology infectious versus pancreatitis versus other. Most concerning for pancreatitis due to improvement with fluids, abdominal pain, and no other suspected sources. Complete empiric course of levaquin for total of 7 days. Urinary as possible source of infection. No other cultures with growth. Epigastric pain -Pancreatitis, autoimmune pathology, SBP, uncertain etiology at this time: Patient also had a prior JOSE that was high positive at 1:1280, unclear whether her prior pancreatitis has underlying autoimmune etiology.? Pulmonology consulted due to AI concerns and pulmonary nodules. Will follow-up as outpatient with Pulm. Additionally noted to have fatty liver on RUQ US: Dilatation of the portal vein with normal directional flow. BEST-POA, resolved with IV fluids Close follow-up with PCP. DC home to resume pain pump usage (control unit at home) and follow-up with Pulm and PCP for further management. Stable at DC. Advance to usual diet as tolerated. Exam Data for Last 24 hours Vital signs and Labs for Last 24 Hours: Temp Pulse Resp BP Pulse Ox 97.7 F 60 18 131/78 98 01/12/22 11:37 01/12/22 11:37 01/12/22 11:37 01/12/22 11:37 01/12/22 11:37 Laboratory Results - last 24 hr 01/10/22 07:47: JOSE Comment Comment, JOSH-1 Antibody <0.2, SS-A Antibody >8.0 H, SS-B Antibody 0.2, Sm (Patel) Antibody 0.3, TIN PLATER Antibody 1.3 H, Scl-70 Scleroderma Ab <0.2, Double Strand DNA Ab 14 H, Chromatin Antibody 2.6 H, Centromere B Antibody <0.2 01/11/22 11:56: CSF Albumin 16 01/12/22 06:31: WBC 7.5, RBC 3.65 L, Hgb 10.8 L, Hct 34.1 L, MCV 93.4, MCH 29.6, MCHC 31.7 L, RDW 16.1, Plt Count 369, MPV 8.3, Neut % (Auto) 63.5, Lymph % (Auto) 24.1, [place] % (Auto) 8.5, Eos % (Auto) 3.1, Baso % (Auto) 0.8, Neut # (Auto) 4.7, Lymph # (Auto) 1.8, [place] # (Auto) 0.6, Eos # (Auto) 0.2, Baso # (Auto) 0.1 01/12/22 06:31: Sodium 139, Potassium 3.7, Chloride 101, Carbon Dioxide 27, Anion Gap 14.7, BUN 10, Creatinine 1.00, Estimated Creat Clear 66, Estimated GFR 57 L, Est GFR ( Amer) 69, Glucose 96, Calcium 8.8, Phosphorus 3.6 D, Total [place]
--- NOTE | 2022-01-12 15:07 | PC.NURSE ---
1423 pt iv leaking at this time, unable to admin iv dilaudid. spoke with Dr Trina md will round on pt at this time. 1455 med changed to po dilaudid with DC pending.
--- NOTE | 2022-01-12 15:30 | P.CONPHA_ITS ---
Pharmacy Intervention Comments: Discharge counseling completed at bedside with patient and family. Discussed new medication (levofloxacin) and continued medications. 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 Overviewed indication for levofloxacin and possible side effects/mitigation strategies. Patient verbalized understanding and has no questions or concerns at this time.
[2022-01-12 15:35] VITALS: BP 138/74; PULSE 72; RESP 18; TEMP 36.7; O2SAT 97
--- NOTE | 2022-01-13 13:47 | CARE MANAGER ---
Left message for post-discharge phone interview.
[2022-01-15 13:49] LABS: Epstein-Barr Virus CSF/WB PCR Negative (Negative)
[2022-01-15 15:18] LABS: Enterovirus,CSF PCR Negative (Negative)
[2022-01-17 23:33] LABS: Hep A Ab, IgM NEGATIVE; Hepatitis B Core Antibody IgM NEGATIVE; Hepatitis B Surface Antigen NEGATIVE; Hepatitis C Antibody <0.1
[2022-01-30 20:10] LABS: Anti-Centromere B Abs Charge YES; Anti-DNA (DS) Ab Charge YES; Anti-Jo-1 Charge YES; Antichromatin Abs Charge YES; Antinuclear Antibodies (ANA) Positive; Antiscleroderma-70 Abs Charge YES; RNP Antibodies Charge YES; Sjogren's Anti-SS-A Ab Charge YES; Sjogren's Anti-SS-B Ab Charge YES; Smith Antibodies Charge YES
== END 2022-01-12 17:05 | disposition home or self-care (01) | DRG 871 ==
LOC: ER 04:38 → 2ND 04:56
PROVIDERS: Internal Medicine Pulmonary Disease; Nurse Practitioner Acute Care; Admitting Provider Student in an Organized Health Care Education/Training Program; Emergency Provider Emergency Medicine; PCP Nurse Practitioner Family; Visit Provider Student in an Organized Health Care Education/Training Program
DX: K65.2 Spontaneous bacterial peritonitis (principal); R65.21 Severe sepsis with septic shock; K85.90 Acute pancreatitis without necrosis or infection, unspecified; N17.9 Acute kidney failure, unspecified; Z68.43 Body mass index [BMI] 50.0-59.9, adult; G43.909 Migraine, unspecified, not intractable, without status migrainosus; A41.9 Sepsis, unspecified organism; R10.13 Epigastric pain; E78.2 Mixed hyperlipidemia; E86.0 Dehydration; I25.118 Atherosclerotic heart disease of native coronary artery with other forms of angina pectoris; I10 Essential (primary) hypertension; E66.01 Morbid (severe) obesity due to excess calories
CPT/HCPCS: 62328; 36415; 62270; 70450; 74176; 74177; 80053; 80061; 80074; 80202; 81001; 82042; 82150; 82533; 82570; 82803; 82945; 83605; 83690; 83735; 84100; 84145; 84155; 84300; 85007; 85025; 85610; 86038; 86140; 86225; 86235; 86256; 87040; 87070; 87086; 87205; 87498; 87798; 89051; 93005; 93306; 93975; 96374; 96375; 99285; C9803; J0696; J2185; J2405; J3370; Q9967; U0003; U0005

== ENCOUNTER → 2022-01-19 11:47 | Outpatient (CLI) | payer MEDICARE, MEDICAID, SELFPAY ==
[2022-01-19 12:55] LABS: Basophils # 0.1 K/mm3 (0-0.2); Basophils % 0.7 % (0.1-2.0); Eosinophils # 0.2 K/mm3 (0.0-0.4); Eosinophils % 1.4 % (0.1-12.0); Hematocrit 40.4 % (37.0-47.0); Lymphocytes # 1.9 K/mm3 (0.7-4.5); Mean Corpuscular HGB Conc 32.1 g/dL (31.8-35.4); Mean Corpuscular Hemoglobin 29.8 pg (27.0-31.2); Mean Corpuscular Volume 92.7 fl (81-99); Monocytes # 0.5 K/mm3 (0.1-1.0); Monocytes % 4.3 % (1.7-9.3); Neutrophils % 77.7 % (37.0-80.0); Platelet Count 515 K/mm3 (142-424); Red Blood Count 4.36 M/mm3 (4.20-5.40); Red Cell Distribution Width 16.3 % (11.5-17.5); White Blood Count 11.6 K/mm3 (4.8-10.8)
[2022-01-19 14:51] LABS: Chloride 104 mmol/L (98-107)
[2022-01-19 14:52] LABS: Potassium 3.6 mmoL/L (3.5-5.1); Sodium 134 mmol/L (136-145)
[2022-01-19 14:54] LABS: Amylase 95 U/L (30-110); Blood Urea Nitrogen 18 mg/dl (7-17); Estimated Glomerular Filt Rate 46 ml/min (>60); GFR (African American) 56 ML/MIN (>60)
[2022-01-19 14:55] LABS: Alanine Aminotransferase 42 U/L (12-78); Albumin Level 3.8 g/dl (3.5-5.0); Alkaline Phosphatase 172 U/L (38-126); Anion Gap 8.6 mEq/L (5-15); Aspartate Amino Transferase 32 U/L (14-36); Bilirubin,Total 0.6 mg/dl (0.2-1.3); Calcium 9.5 mg/dl (8.4-10.2); Carbon Dioxide 25 mmol/L (22.0-30.0); Globulin 3.8 g/dL (1.3-3.2); Glucose 83 mg/dl (74-100); Lipase 103 U/L (23-300); Total Protein,Serum 7.6 g/dl (6.3-8.2)
== END ==
PROVIDERS: PCP Nurse Practitioner Family; Visit Provider Nurse Practitioner Family
DX: R11.0 Nausea (principal); K85.90 Acute pancreatitis without necrosis or infection, unspecified
CPT/HCPCS: 36415; 80053; 82150; 83690; 85025

== ENCOUNTER 2022-01-26 09:55 | Day surgery (SDC) | payer MEDICARE, MEDICAID, SELFPAY ==
[2022-01-26 10:30] VITALS: BP 156/93; PULSE 89; RESP 18; TEMP 36.2; O2SAT 98; BMI 50.1
[2022-01-26 10:32] VITALS: BP 157/90; PULSE 81; RESP 18; O2SAT 96
[2022-01-26 10:48] VITALS: BP 139/85; PULSE 80; RESP 18; O2SAT 98
--- NOTE | 2022-01-26 11:09 | P.PCN_ITS ---
Procedure Date: 01/26/22 Time: 10:50 Anesthesiologist:: Pee Lambert CRNA Complications:: None Pre-procedure Diagnosis:: Degenerative disc disease lumbar spine multilevels. Lumbar radiculopathy. Post-procedure Diagnosis:: Same. Indications for Procedure:: This patient is a very pleasant 56-year-old female comes our clinic today for intrathecal pain pump interrogation and refill. We are currently managing the patient with Dilaudid 10 mg/mL at 1.265 mg/day. Patient does not have any c omplaints regarding complications or side effects from the pump. Patient had recent hospitalization with pancreatitis. However she is doing very well at this time. Patient does not complain of any increased pain at this time. Procedure Details:: Details of the procedure were explained to the patient. The patient taken procedure room placed in sitting position. The area over the pump was cleansed using chlorhexidine as a cleansing solution. The pump was accessed with a ease using a 22-gauge 2 inch needle. 4.5 mL of solution was withdrawn and discarded appropriately. 6.0 mL was expected. The pump was then filled with 20 cc of Dilaudid 10 mg/mL. Patient tolerated the procedure without difficulty. There are no complications. Plan and Disposition:: Patient was discharged without incident.
== END 2022-01-26 10:48 | disposition home or self-care (01) ==
LOC: SC.PAINP 09:56
PROVIDERS: PCP Nurse Practitioner Family; Visit Provider Nurse Anesthetist, Certified Registered
DX: M51.16 Intervertebral disc disorders with radiculopathy, lumbar region (principal)
CPT/HCPCS: 95991

== ENCOUNTER 2022-01-26 16:17 | Observation (INO) | payer MEDICARE, MEDICAID, SELFPAY ==
--- NOTE | 2022-01-26 16:11 | ECG_ITS ---
APPROVED REPORT Exam: Resting ECG HR:66 bpm ECG Measurements Heart Rate 66 AXES GA 166 P 63 QRSd 105 QRS -44 QT 387 T 47 QTc 401 Conclusion SINUS RHYTHM LEFT AXIS DEVIATION [QRS AXIS < -30] Late r wave progression O/w normal ecg Electronically signed by : Dandy Del Toro MD 01/27/2022 13:28:56
[2022-01-26 16:17] VITALS: BP 157/83; PULSE 65; RESP 18; TEMP 37.1; O2SAT 98; BMI 53.0
--- NOTE | 2022-01-26 16:34 | PC.NURSE ---
pt placed on 2 liters NC. Spouse at BS
[2022-01-26 17:01] VITALS: BP 125/100; PULSE 71; O2SAT 100
[2022-01-26 17:31] VITALS: BP 115/66; PULSE 66; RESP 20; O2SAT 96
[2022-01-26 17:56] LABS: Basophils # 0.1 K/mm3 (0-0.2); Basophils % 0.5 % (0.1-2.0); Eosinophils # 0.1 K/mm3 (0.0-0.4); Eosinophils % 0.6 % (0.1-12.0); Hematocrit 40.4 % (37.0-47.0); Hemoglobin 13.2 g/dL (12.2-16.2); Lymphocytes # 1.5 K/mm3 (0.7-4.5); Lymphocytes % 10.2 % (10-50); Mean Corpuscular HGB Conc 32.6 g/dL (31.8-35.4); Mean Corpuscular Hemoglobin 29.8 pg (27.0-31.2); Mean Corpuscular Volume 91.5 fl (81-99); Mean Platelet Volume 8.4 fl (7.4-10.4); Monocytes # 0.5 K/mm3 (0.1-1.0); Monocytes % 3.7 % (1.7-9.3); Neutrophils # 12.3 K/mm3 (1.8-7.8); Neutrophils % 84.9 % (37.0-80.0); Platelet Count 663 K/mm3 (142-424); Red Blood Count 4.41 M/mm3 (4.20-5.40); White Blood Count 14.5 K/mm3 (4.8-10.8)
[2022-01-26 17:58] LABS: Chloride 98 mmol/L (98-107); Potassium 4.2 mmoL/L (3.5-5.1); Sodium 133 mmol/L (136-145)
[2022-01-26 18:01] LABS: Alanine Aminotransferase 34 U/L (12-78); Albumin Level 4.4 g/dl (3.5-5.0); Alkaline Phosphatase 164 U/L (38-126); Anion Gap 14.2 mEq/L (5-15); Aspartate Amino Transferase 33 U/L (14-36); Bilirubin,Total 0.4 mg/dl (0.2-1.3); Blood Urea Nitrogen 32 mg/dl (7-17); Carbon Dioxide 25 mmol/L (22.0-30.0); Creatinine Clearance Estimated 49 mL/min (50-200); Estimated Glomerular Filt Rate 42 ml/min (>60); GFR (African American) 51 ML/MIN (>60); Globulin 4.2 g/dL (1.3-3.2); Total Protein,Serum 8.6 g/dl (6.3-8.2)
[2022-01-26 18:02] LABS: Calcium 10.1 mg/dl (8.4-10.2); Glucose 112 mg/dl (74-100)
[2022-01-26 18:07] VITALS: BP 153/95; PULSE 66; O2SAT 100
--- NOTE | 2022-01-26 19:11 | HMH.EDGENADL ---
Discharge Plan Disposition Patient Disposition: Admitted as Observation Condition: Good Clinical Impressions Clinical Impression: Intoxication with opioids Discharge ED Provider: Gareth Biggs General Adult HPI General Chief complaint: Shortness of Breath/Dyspnea Stated complaint: SOB Time Seen by Provider: 01/26/22 19:11 Mode of Arrival: EMS Source of Information: Patient Limitations: No Limitations Description of Symptoms (Recalled from ER Triage Doc. by RN): pt to ed c/o shortnes of breath. pt states she was seen in pain management and had her pain pump adjusted. pt states she started to feel short of air shortly after. pt denies pain. History of Present Illness HPI narrative: The patient complains of drowsiness. She has had a pain pump for a year. She had her pain pump refilled today about 10 in the morning. She says afterwards she was waiting in the waiting room as per usual and began feeling sleepy and drowsy. Since then she has felt drowsy all day, lightheaded, keeps falling asleep. Feels high . States she tried to eat lunch and kept falling asleep, it took her an hour to eat lunch. Denies any pain. Denies any difficulty breathing. She does complain that her mouth feels dry. She has never had this happen before when her pain pump has been filled. No recent illness. Nurse reports that the patient's oxygen saturation was in the 90s while awake, but when she would sleep it would go down to the upper 80s, she was therefore started on nasal cannula oxygen prior to my evaluation. Related Data Home Medications Medication Instructions Recorded Confirmed buspirone 10 mg tablet 10 mg PO TIDP PRN Anxiety 30 days 09/19/17 01/19/22 linaclotide 72 mcg capsule 72 mcg PO DAILY ibs 30 days 09/19/17 01/19/22 levothyroxine 137 mcg tablet 137 mcg PO DAILY hypothryoidism 03/06/19 01/19/22 montelukast 10 mg tablet 10 mg PO PM allergies 04/30/20 01/19/22 hydromorphone (PF) 1 mg/mL 0.15 mg intrathecal CONT PRN 07/31/20 01/19/22 injection syringe chronic pain bupropion HCl 150 mg tablet,12 hr 150 mg PO DAILY mood 09/05/20 01/19/22 sustained-release esomeprazole magnesium 40 mg 40 mg PO DAILY GERD 09/05/20 01/19/22 capsule,delayed release prucalopride 2 mg tablet 2 mg PO DAILY bowels 09/05/20 01/19/22 (Motegrity) aspirin 81 mg tablet,delayed 81 mg PO DAILY heart health 09/15/20 01/19/22 release dicyclomine 10 mg capsule 20 mg PO TID STOMACH PAIN 09/29/20 01/19/22 latanoprost 0.005 % eye drops 1 drp OPHTHALMIC HS Glaucoma 09/29/20 01/19/22 cyclobenzaprine 10 mg tablet 10 mg PO TID stomach pain 11/03/20 01/19/22 ascorbate calcium (vitamin C) 500 500 mg PO DAILY SUPPLIMENT 07/08/21 01/19/22 mg tablet melatonin 10 mg capsule 10 mg PO HSP PRN Sleep 07/08/21 01/19/22 multivitamin 1 tab PO DAILY Supplement 07/08/21 01/19/22 zinc acetate 25 mg (zinc) capsule 25 mg PO DAILY SUPPLIMENT 07/08/21 01/19/22 (Galzin) famotidine 20 mg tablet 20 mg PO DAILY GERD 08/21/21 01/19/22 estradiol 2 mg tablet 2 mg PO DAILY HORMONE REPLACEMENT 01/08/22 01/19/22 meloxicam 15 mg tablet 15 mg PO DAILY Pain 01/09/22 01/19/22 oxycodone-acetaminophen 7.5 mg-325 1 tab PO Q6HP PRN Pain 01/09/22 01/19/22 mg tablet ropinirole 1 mg tablet 1 mg PO HS Restless leg 01/09/22 01/19/22 gabapentin 300 mg capsule 300 mg PO TID Pain 01/26/22 Previous Rx's Medication Instructions Recorded atorvastatin 40 mg tablet 40 mg PO DAILY Cholesterol #90 tabs 07/08/21 lisinopril 20 1 tab PO DAILY blood pressure #90 07/08/21 mg-hydrochlorothiazide 12.5 mg tabs tablet spironolactone 50 mg tablet 50 mg PO DAILY fluid retention #90 07/08/21 tabs furosemide 80 mg tablet 40 mg PO BID swelling #180 tabs 08/07/21 gabapentin 300 mg capsule 300 mg PO TID neuropathy #90 caps 01/25/22 Allergies Allergy/AdvReac Type Severity Reaction Status Date / Time Penicillins Allergy Verified 01/26/22 10:40 [facility] Disclaimer: The information contained in this sect
--- NOTE | 2022-01-26 19:28 | PC.NURSE ---
Dr. Biggs s/w Dr. Canchola
--- NOTE | 2022-01-26 19:33 | PC.NURSE ---
Dr. Biggs s/w [facility]
[2022-01-26 19:52] LABS: Coronavirus 19, PCR Not Detected (NotDetected); Influenza A, PCR Not Detected (NotDetected); Influenza B, PCR Not Detected (NotDetected)
--- NOTE | 2022-01-26 19:59 | EXP.HP ---
History of Present Illness *Admission Date: 01/26/22 *Reason for visit:: Vertigo, Lethargy *History of present illness: Ms. Bergman is a 56-year-old female with a past medical history of Chronic Back Pain, HTN, Hypothyroidism and h/o Pancreatitis. She presents to [facility] due to an acute onset of dizziness, lethargy and itching that occurred after having her intrathecal pain pump irrigated and refilled earlier in the day. The patient was seen in the ER prior to admission. She reports feeling very tired, she reports that she also felt dizzy and short of air after leaving her appointment so she came immediately into the ER for evaluation. In the ER she had an EKG that showed NSR with no ST segment elevation or depression. She was noted to be in the 80's on room air while sleeping. She was placed on 2L nasal cannula. ER Physician spoke with Pain Management Physician who recommended observation overnight and re-evaluation in the morning. The plan of care was discussed with the patient and in the ER on admission. Both verbalized understanding and agreement with the plan of care. [facility] Disclaimer: The information contained in this section may have been updated after the patient was seen, as this information can be updated by other users. Medical History Abdominal pain Abnormal electrocardiography Asthma Bradycardia CAD (coronary artery disease) Chest pain Congestive heart failure Dizziness Dyspnea Edema Ex-smoker Fatigue Headache History of back pain History of gastroesophageal reflux (GERD) HTN (hypertension) Hyperlipidemia IBS (irritable bowel syndrome) Migraine Morbid obesity BRAULIO (obstructive sleep apnea) Positive JOSE (antinuclear antibody) Post hysterectomy menopause UTI (urinary tract infection) Surgical History H/O bilateral salpingo-oophorectomy H/O: hysterectomy History of cholecystectomy History of colonoscopy Family History (Updated 01/26/22 @ 21:58 by Teena Gan RN) Family history of TIAs Family history of acute congestive heart failure Family history of GERD Family history of kidney stone Colon cancer Family history of asthma Heart disease Breast cancer Family history of hypertension Family history of Alzheimer's disease Family history of hypothyroidism Family history of diabetes mellitus type II Family history of COPD (chronic obstructive pulmonary disease) Family history of irritable bowel syndrome Family history of migraine headaches Family history of myocardial infarction Lung cancer Family history of hyperlipidemia Stroke Social History (Updated 01/26/22 @ 21:58 by Teena Gan RN) Smoking Status: Former smoker alcohol intake: never substance use type: denies use current occupational status: disabled Travel in the last 8 weeks: Inside the [place] household members: spouse and children housing: house current occupational exposures/hazards: No caffeine: Yes Review of Systems Review of Systems Review of systems:: pertinent systems reviewed and negative unless documented below Constitutional Constitutional: Reports poor appetite Eyes Eyes: Reports system reviewed and no additional complaints, except as documented ENT Ears, Nose, Mouth, and Throat: Reports vertigo *Cardiovascular Cardiovascular: Reports system reviewed and no additional complaints, except as documented and Reports dyspnea *Respiratory Respiratory: Reports dyspnea *Gastrointestinal Gastrointestinal: Reports nausea *Genitourinary Genitourinary: Reports system reviewed and no additional complaints, except as documented *Musculoskeletal Musculoskeletal: Reports system reviewed and no additional complaints, except as documented Integumentary/Breasts Skin/Breast: Reports system reviewed and no additional complaints, except as documented *Neurologic Neurologic:
--- NOTE | 2022-01-26 20:48 | PC.NURSE ---
Patient ambulated to the restroom. Patient was a standby assist.
[2022-01-26 20:55] VITALS: BP 150/92; PULSE 65; RESP 18; TEMP 36.6; O2SAT 99; BMI 53.8
[2022-01-26 21:23] VITALS: BP 136/78; PULSE 66; RESP 18; TEMP 36.4; O2SAT 98
[2022-01-27 03:53] VITALS: BP 108/60; PULSE 71; RESP 18; TEMP 36.7; O2SAT 99
--- NOTE | 2022-01-27 06:24 | PC.NURSE ---
NO ACUTE CHANGES SINCE ARRIVING TO THE FLOOR. PT HAS BEEN PLEASANT AND LESS LETHARGIC. SHE DOES STATE THAT SHE HAS SOME BRAIN FOG . C/O TENDERNESS AROUND HER PAIN PUMP SITE. NO OTHER COMPLAINTS THIS SHIFT. AMBULATING WITH STANDBY ASSIST. CALL [facility] WITHIN REACH.
--- NOTE | 2022-01-27 07:19 | HMH.PHAINT1 ---
Pharmacy Intervention Comments: Medication reconciliation completed via chart review, external fill history, and patient interview. -Brandee Pulido, PharmD Candidate 2022
[2022-01-27 07:49] VITALS: O2SAT 98
[2022-01-27 08:00] VITALS: BP 120/60; PULSE 72; RESP 18; TEMP 36.6; O2SAT 97
--- NOTE | 2022-01-27 10:27 | EXP.DC.SUM ---
General Admission date:: 01/26/22 Discharge date: 01/27/22 HPI HPI HPI: Ms. Bergman is a 56-year-old female with a past medical history of Chronic Back Pain, HTN, Hypothyroidism and h/o Pancreatitis. She presents to [facility] due to an acute onset of dizziness, lethargy and itching that occurred after having her intrathecal pain pump irrigated and refilled earlier in the day. The patient was seen in the ER prior to admission. She reports feeling very tired, she reports that she also felt dizzy and short of air after leaving her appointment so she came immediately into the ER for evaluation. In the ER she had an EKG that showed NSR with no ST segment elevation or depression. She was noted to be in the 80's on room air while sleeping. She was placed on 2L nasal cannula. ER Physician spoke with Pain Management Physician who recommended observation overnight and re-evaluation in the morning. The plan of care was discussed with the patient and in the ER on admission. Both verbalized understanding and agreement with the plan of care. Hospital Course Hospital Course Hospital Course: 56-year-old female with past medical history of Chronic Back Pain, HTN, Hypothyroidism and Pancreatitis presents with acute onset of dizziness, lethargy, hypoxia and itching after having intrathecal pain pump irrigated and refilled. - Vertigo - Lethargy Neurologically intact on presentation. Monitored overnight. No Narcan necessary during admission. Pain management consulted, suspect patient had minor extravasation of medication during procedure causing side effect. Patient is cleared at this time. She is back to baseline mentation and function. Stable for discharge home. Recommend follow-up with PCP and pain management in the outpatient setting for reevaluation. - Hypoxia Resolved overnight. No significant oxygen requirement. Stable on room air on day of discharge - Pruitus: Antihistamines prn, less sedating, monitor - Hypertension: Continued home regime - Hypothryodism: Continued home Synthroid Continue home regimen of medications. Stable for discharge home Exam Data for Last 24 hours Vital signs and Labs for Last 24 Hours: Temp Pulse Resp BP Pulse Ox 97.9 F 72 18 120/60 97 01/27/22 08:00 01/27/22 08:00 01/27/22 08:00 01/27/22 08:00 01/27/22 08:00 Laboratory Results - last 24 hr 01/26/22 17:33: WBC 14.5 H, RBC 4.41, Hgb 13.2, Hct 40.4, MCV 91.5, MCH 29.8, MCHC 32.6, RDW 16.0, Plt Count 663 H, MPV 8.4, Neut % (Auto) 84.9 H, Lymph % (Auto) 10.2, [place] % (Auto) 3.7, Eos % (Auto) 0.6, Baso % (Auto) 0.5, Neut # (Auto) 12.3 H, Lymph # (Auto) 1.5, [place] # (Auto) 0.5, Eos # (Auto) 0.1, Baso # (Auto) 0.1 01/26/22 17:33: Sodium 133 L, Potassium 4.2, Chloride 98, Carbon Dioxide 25, Anion Gap 14.2, BUN 32 H, Creatinine 1.30 H, Estimated Creat Clear 49, Estimated GFR 42 L, Est GFR ( Amer) 51 L, Glucose 112 H, Calcium 10.1, Total Bilirubin 0.4, AST 33, ALT 34, Alkaline Phosphatase 164 H, Total Protein 8.6 H, Albumin 4.4, Globulin 4.2 H, Albumin/Globulin Ratio 1.0 L 01/26/22 19:38: SARS-CoV-2 (PCR) Not detected, Influenza A Untype (PCR) Not detected, Influenza Type B (PCR) Not detected I & O for Last 24 hours: Intake & Output 01/24/22 01/25/22 01/26/22 01/27/22 23:59 23:59 23:59 23:59 Intake Total 462 / 462 Output Total 0 / 0 0 / 0 Balance 0 / 0 462 / 462 Weight 164.767 kg Constitutional Constitutional: no acute distress, morbidly obese and cooperative *Routine HEENT Exam Head: Present normocephalic Eye: Present EOMI and PERRL ENT: Present mucous membranes moist *Routine Neck Exam Neck: Present supple; Absent lymphadenopathy *Routine Respiratory Exam Respiratory: Present accessory muscle use and CTA bilaterally *Routine Cardiovascular Exam Cardiovascular: Present RRR *Routine Abdominal Exam Abdominal: Present soft, normoactive bowel sounds and tenderness (mild LUQ) *Routine Rectal
--- NOTE | 2022-01-27 11:26 | HMH.PHAINT1 ---
Pharmacy Intervention Comments: Discharge counseling completed at bedside with the patient. Discussed continued medications and patient verbalized understanding. She has no questions or concerns at this time.
--- NOTE | 2022-01-28 13:13 | CARE MANAGER ---
Spoke with patient for post-discharge phone interview, no issues at this time. Is aware of follow-up appointments.
== END 2022-01-27 12:25 | disposition home or self-care (01) ==
LOC: ER 16:21 → 2ND 20:15
PROVIDERS: Admitting Provider Internal Medicine Adolescent Medicine; Emergency Provider Emergency Medicine; PCP Nurse Practitioner Family; Visit Provider Internal Medicine Adolescent Medicine
DX: I10 Essential (primary) hypertension (principal); Z79.899 Other long term (current) drug therapy; Z79.890 Hormone replacement therapy; G43.909 Migraine, unspecified, not intractable, without status migrainosus; E03.9 Hypothyroidism, unspecified; M54.9 Dorsalgia, unspecified; R42 Dizziness and giddiness; R09.02 Hypoxemia; Z20.822 Contact with and (suspected) exposure to COVID-19
CPT/HCPCS: G0378; 80053; 85025; 93005; 99285; C9803; U0003; U0005

== ENCOUNTER 2022-02-16 13:05 | Observation (INO) | payer MEDICARE, MEDICAID, SELFPAY ==
[2022-02-16] VITALS (9 sets, daily range): BP systolic 100–107; BP diastolic 45–61; PULSE 72–84; RESP 11–18; TEMP 36.3–36.7; O2SAT 94–99; BMI 50.2; BMI 51.7
--- NOTE | 2022-02-16 13:23 | ECG_ITS ---
APPROVED REPORT Exam: Resting ECG HR:80 bpm ECG Measurements Heart Rate 80 AXES NH 147 P 29 QRSd 95 QRS -32 QT 333 T 37 QTc 369 Conclusion SINUS RHYTHM LEFT AXIS DEVIATION [QRS AXIS < -30] LOW QRS VOLTAGE Late R wave progression ABNORMAL ECG UNCONFIRMED REPORT Electronically signed by : Dandy Del Toro MD 02/16/2022 16:54:32
[2022-02-16 14:12] LABS: Basophils # 0.1 K/mm3 (0-0.2); Basophils % 0.4 % (0.1-2.0); Eosinophils # 0.4 K/mm3 (0.0-0.4); Eosinophils % 1.7 % (0.1-12.0); Hemoglobin 11.9 g/dL (12.2-16.2); Lymphocytes # 1.8 K/mm3 (0.7-4.5); Lymphocytes % 7.7 % (10-50); Mean Corpuscular HGB Conc 31.2 g/dL (31.8-35.4); Mean Corpuscular Hemoglobin 28.8 pg (27.0-31.2); Mean Corpuscular Volume 92.4 fl (81-99); Mean Platelet Volume 7.3 fl (7.4-10.4); Monocytes # 0.7 K/mm3 (0.1-1.0); Monocytes % 3.2 % (1.7-9.3); Neutrophils # 20.3 K/mm3 (1.8-7.8); Platelet Count 468 K/mm3 (142-424); Red Blood Count 4.12 M/mm3 (4.20-5.40); Red Cell Distribution Width 16.1 % (11.5-17.5); White Blood Count 23.3 K/mm3 (4.8-10.8)
[2022-02-16 14:16] LABS: MANUAL DIFFERENTIAL MANUAL DIFFERENTIAL (MANUAL DIFF)
[2022-02-16 14:21] LABS: Alanine Aminotransferase 21 U/L (12-78); Albumin Level 3.6 g/dl (3.5-5.0); Alkaline Phosphatase 99 U/L (38-126); Anion Gap 12.5 mEq/L (5-15); Aspartate Amino Transferase 22 U/L (14-36); Bilirubin,Total 0.3 mg/dl (0.2-1.3); Blood Urea Nitrogen 64 mg/dl (7-17); Calcium 8.2 mg/dl (8.4-10.2); Carbon Dioxide 23 mmol/L (22.0-30.0); Chloride 101 mmol/L (98-107); Creatinine Clearance Estimated 26 mL/min (50-200); Estimated Glomerular Filt Rate 19 ml/min (>60); GFR (African American) 23 ML/MIN (>60); Globulin 3.6 g/dL (1.3-3.2); Glucose 89 mg/dl (74-100); Potassium 4.5 mmoL/L (3.5-5.1); Sodium 132 mmol/L (136-145); Total Protein,Serum 7.2 g/dl (6.3-8.2)
[2022-02-16 14:44] LABS: Troponin I < 0.01 ng/ml (0.00-0.034)
--- NOTE | 2022-02-16 14:54 | HMH.EDGENADL ---
Discharge Plan Disposition Patient Disposition: Admitted as Observation Condition: Fair Chief Complaint: Weakness Prescriptions Prescriptions: No Action linaclotide 72 mcg capsule 72 mcg PO DAILY 30 Days buspirone 10 mg tablet 10 mg PO TIDP PRN (Reason: Anxiety) 30 Days bupropion HCl 150 mg tablet sustained-release 12 hr 150 mg PO DAILY Motegrity 2 mg tablet 2 mg PO DAILY esomeprazole magnesium 40 mg capsule,delayed release(DR/EC) 40 mg PO DAILY multivitamin Tablet 1 tab PO DAILY ascorbate calcium (vitamin C) 500 mg tablet 500 mg PO DAILY Galzin 25 mg (zinc) capsule 25 mg PO DAILY melatonin 10 mg capsule 10 mg PO HSP PRN (Reason: Sleep) atorvastatin 40 mg tablet 40 mg PO DAILY Qty: 90 3RF lisinopril-hydrochlorothiazide 20-12.5 mg tablet 1 tab PO DAILY Qty: 90 3RF Hold Instructions: pending eval at follow-up spironolactone 50 mg tablet 50 mg PO DAILY Qty: 90 3RF furosemide 80 mg tablet 40 mg PO BID Qty: 180 3RF dicyclomine 10 mg capsule 20 mg PO TID latanoprost 0.005 % drops 1 drp OPHTHALMIC HS levothyroxine 137 MCG tablet 137 mcg PO DAILY hydromorphone (PF) 1 MG/ML syringe 0.15 mg IT CONT PRN (Reason: chronic pain) Rx Instructions: medication adminstered via intrathecal pain pump. total volume of pump is 20ml. famotidine 20 MG tablet 20 mg PO DAILY estradiol 2 mg tablet 2 mg PO DAILY topiramate 25 mg tablet 25 mg PO HS Label Comments: TAKE 1 TABLET BY MOUTH ONCE DAILY AT BEDTIME promethazine 25 mg tablet 25 mg PO Q6HP PRN (Reason: Nausea) Label Comments: TAKE 1 TABLET BY MOUTH EVERY 6 HOURS NEEDED FOR 10 DAYS fluticasone propionate [Flovent HFA] 110 mcg/actuation HFA aerosol inhaler 1 inh INHALATION Q6HP PRN (Reason: Shortness Of Breath) dorzolamide 2 % drops 1 drp Eye-Both DAILY Label Comments: INSTILL 1 DROP INTO EACH EYE IN THE MORNING montelukast 10 MG tablet 10 mg PO PM aspirin 81 MG tablet,delayed release (DR/EC) 81 mg PO DAILY cyclobenzaprine 10 MG tablet 10 mg PO TID gabapentin 300 mg capsule 300 mg PO TID ropinirole 1 mg tablet 1 mg PO HS Label Comments: TAKE ONE TABLET BY MOUTH 1-3 HOURS BEFORE BEDTIME NIGHTLY meloxicam 15 mg tablet 15 mg PO DAILY Label Comments: TAKE 1 TABLET BY MOUTH ONCE DAILY meloxicam 15 mg tablet 15 mg PO DAILY Label Comments: TAKE 1 TABLET BY MOUTH ONCE DAILY sucralfate 1 gram tablet 1 g PO DAILY sucralfate 1 gram tablet 1 g PO DAILY diclofenac sodium 75 mg tablet,delayed release (DR/EC) 75 mg PO DAILY fluticasone propionate [Flovent HFA] 110 mcg/actuation HFA aerosol inhaler 1 puff INHALATION DAILY Referrals Follow up/Referrals: Gita Muhammad APRN [Primary Care Provider] - See instructions Clinical Impressions Clinical Impression: Acute hypotension, Leukocytosis, BEST (acute kidney injury) Discharge ED Provider: Gareth Biggs General Adult HPI General Chief complaint: Weakness Stated complaint: blood pressure dropping Time Seen by Provider: 02/16/22 15:05 Mode of Arrival: Ambulatory Limitations: No Limitations Description of Symptoms (Recalled from ER Triage Doc. by RN): PT REPORTS LOW BLOOD PRESSURE LAST NIGHT AND THIS AM. NAUSEA AND LIGHTHEADED History of Present Illness HPI narrative: Patient states that her blood pressure has been dropping low since yesterday. As low as 65 systolic yesterday. She feels generally weak and tired. She had epigastric abdominal pain yesterday which has now resolved. She says that around she had pancreatitis with septic shock with similar symptoms and was admitted to this facility. She is on antihypertensive medications and states that she took all of her medications yesterday and this morning. States she has had low-gr
--- NOTE | 2022-02-16 15:03 | PC.NURSE ---
DR. ABDI AT BEDSIDE
--- NOTE | 2022-02-16 15:09 | XR_ITS ---
FINAL REPORT CLINICAL HISTORY: low BP COMPARISON: July 2021 FINDINGS: The heart size is normal. The mediastinum is within normal limits. There is no acute infiltrate. There is no pleural effusion. There is no pneumothorax. The bony thorax is intact. IMPRESSION: No acute cardiopulmonary process. No change from prior. Reviewed, Interpreted and Dictated by Sebastien Bolivar MD Transcribed by Don Anderson Authenticated and [facility]
[2022-02-16 15:10] LABS: Lymphocytes % 5 % (10-50); Monocytes % 3 % (2-9); Neutrophils % 92 % (42-76); Total Cells Counted 100
[2022-02-16 15:11] LABS: Platelet Estimate Normal; RBC Morphology Normal
--- NOTE | 2022-02-16 15:11 | CT_ITS ---
FINAL REPORT TECHNIQUE: Noncontrast CT exam of the abdomen and pelvis. This study was performed with techniques to keep radiation doses as low as reasonably achievable (ALARA). Individualized dose reduction techniques using automated exposure control or adjustment of mA and/or kV according to the patient''s size were employed. CLINICAL HISTORY: abdo pain, h/o pancreatitis COMPARISON: December 2021 FINDINGS: Abdomen: Lung bases are clear. Pneumobilia without evidence of biliary duct dilatation. The spleen, pancreas and right adrenal gland have a normal CT appearance in their limited unenhanced state. Left adrenal nodule again seen most compatible with an adenoma. Small umbilical hernia containing fat. The kidneys show no stone disease or obstruction. No obvious renal mass is present. No ureteral stones are present. Pelvis: No distal ureteral stones are seen. Bladder is mildly distended. No fluid collection or adenopathy is seen. Appendix not identified and probably removed at time of hysterectomy. IMPRESSION: No acute findings. No significant change from prior. Reviewed, Interpreted and Dictated by Sebastien Bolivar MD Transcribed by Don Anderson Authenticated and [facility]
--- NOTE | 2022-02-16 15:15 | PC.NURSE ---
LAB REQUESTED TO COLLECT LACTIC AND BLOOD CULTURES
[2022-02-16 15:48] LABS: Lipase 139 U/L (23-300)
[2022-02-16 16:04] LABS: Troponin I < 0.01 ng/ml (0.00-0.034)
[2022-02-16 16:19] LABS: Thyroid Stimulating Hormone 0.76 uIU/mL (0.465-4.68)
[2022-02-16 16:27] LABS: Lactic Acid 1.4 mmol/L (0.7-2.1)
[2022-02-16 16:57] LABS: Microscopic, Urine URINE MICROSCOPIC (MICROSCOPIC)
[2022-02-16 17:01] LABS: Appearance,Urine SL CLOUDY (Clear); Bilirubin,Urine Negative (Negative); Blood, Urine Negative (Negative); Color,Urine YELLOW (Yellow); Glucose,Urine (UA) Negative (Negative); Ketones,Urine Negative (Negative); Leukocyte Esterase,Urine Negative (Negative); Nitrate,Urine Negative (Negative); PH,Urine 5.5 (5.0-8.5); Protein,Urine Negative (Negative); Urobilinogen,Urine 0.2 EU/dl (0.2)
[2022-02-16 17:19] LABS: Bacteria,Urine 1+ /lpf; Mucus,Urine 1+ /lpf
[2022-02-16 17:45] LABS: Coronavirus 19, PCR Not Detected (NotDetected); Influenza A, PCR Not Detected (NotDetected); Influenza B, PCR Not Detected (NotDetected)
--- NOTE | 2022-02-16 18:42 | PC.NURSE ---
notified warehouse associate driver of admission
--- NOTE | 2022-02-16 19:39 | EXP.HP ---
History of Present Illness *Admission Date: 02/16/22 *Reason for visit:: Weakness, Hypotension *History of present illness: Ms. Bergman is a 56-year-old female with a past medical history that is positive for Pancreatitis, HTN, HL, Depression, Chronic pain and fatty liver disease. She presented to [facility] due to an acute one day symptoms onset of weakness associated with hypotension, diarrhea, abdominal pain and nausea. She denies known fevers or similar sick contacts. In the ER she underwent a CT of the abdomen and pelvis that showed a stable pneumobilia compared to prior CT, she had normal LFT's and bilirubin. Lipase was normal. WBC was elevated at 23.3. Urinalysis appears to be contaminated with 5-10 epithelial cells. It was negative for nitrates and leukoesterase. Covid and Flu testing were negative. On presentation, blood pressure was in the 100 range, she was reporting that it had been in the 65 systolic range at home. She was given iv fluids, cultures were drawn in the ER. She was placed on broad spectrum antibiotics and US will be ordered for the am. The plan of care was discussed in length and detail with the patient on admission in the ER. The patient verbalized understanding and agreement with the plan of care. [facility] Disclaimer: The information contained in this section may have been updated after the patient was seen, as this information can be updated by other users. Medical History Abdominal pain Abnormal electrocardiography Asthma Bradycardia CAD (coronary artery disease) Chest pain Congestive heart failure Dizziness Dyspnea Edema Ex-smoker Fatigue Headache History of back pain History of gastroesophageal reflux (GERD) HTN (hypertension) Hyperlipidemia IBS (irritable bowel syndrome) Migraine Morbid obesity BRAULIO (obstructive sleep apnea) Positive JOSE (antinuclear antibody) Post hysterectomy menopause UTI (urinary tract infection) Surgical History H/O bilateral salpingo-oophorectomy H/O: hysterectomy History of cholecystectomy History of colonoscopy Family History Other Breast cancer Colon cancer Family history of Alzheimer's disease Family history of COPD (chronic obstructive pulmonary disease) Family history of GERD Family history of TIAs Family history of acute congestive heart failure Family history of asthma Family history of diabetes mellitus type II Family history of hyperlipidemia Family history of hypertension Family history of hypothyroidism Family history of irritable bowel syndrome Family history of kidney stone Family history of migraine headaches Family history of myocardial infarction Heart disease Lung cancer Stroke Social History Smoking Status: Former smoker alcohol intake: never substance use type: denies use current occupational status: disabled Travel in the last 8 weeks: Inside the [place] household members: spouse and children housing: house current occupational exposures/hazards: No caffeine: Yes Review of Systems Review of Systems Review of systems:: pertinent systems reviewed and negative unless documented below Constitutional Constitutional: Reports lethargy, Reports malaise and Reports weakness Eyes Eyes: Reports system reviewed and no additional complaints, except as documented ENT Ears, Nose, Mouth, and Throat: Reports dry mouth *Cardiovascular Cardiovascular: Reports system reviewed and no additional complaints, except as documented *Respiratory Respiratory: Reports system reviewed and no additional complaints, except as documented *Gastrointestinal Gastrointestinal: Reports abdominal pain, Reports nausea and Reports vomiting *Genitourinary Genitourinary: Reports system reviewed and n
--- NOTE | 2022-02-16 19:39 | PC.NURSE ---
REPORT GIVEN TO RENEE MOREIRA
--- NOTE | 2022-02-16 19:57 | PC.NURSE ---
PT ARRIVED TO FLOOR VIA WHEELCHAIR AT THIS TIME
[2022-02-16 20:51] LABS: Troponin I < 0.01 ng/ml (0.00-0.034)
--- NOTE | 2022-02-17 03:38 | PC.NURSE ---
Pt a/o x4. Lung sounds clear. Pt able to walk to BR standby assist. Pt states she is feeling better after boluses. No c/o voiced to staff. Call light within reach.
[2022-02-17 04:00] VITALS: BP 106/56; PULSE 73; RESP 16; TEMP 36.9; O2SAT 97; BMI 51.8
--- NOTE | 2022-02-17 08:00 | US_ITS ---
FINAL REPORT CLINICAL HISTORY: abdominal pain, ct findings of pneumobilia, leukoc COMPARISON: CT from February 16, 2022 FINDINGS: ULTRASOUND RIGHT UPPER QUADRANT Sonographic imaging of the right upper quadrant was obtained. The pancreas is partially obscured. The liver has increased echogenicity consistent with fatty infiltration. There are hyperechoic foci within the biliary tree. The gallbladder is surgically absent. The common duct is normal at 3 mm. Limited images of the right kidney are unremarkable. There is no abnormal fluid collection. IMPRESSION: Fatty liver. Post cholecystectomy. Hyperechoic foci within the biliary tree is most suggestive of pneumobilia when correlated with recent CT. Reviewed, Interpreted and Dictated by Sebastien Bolivar MD Transcribed by Tamara Peace Authenticated and [facility]
--- NOTE | 2022-02-17 08:10 | EXP.PHA.CONS ---
Pharmacy Consult Date: 02/17/22 Time: 08:10 Referring provider: DR. SMITH Reason for Consult:: VANCOMYCIN DOSING Allergies Allergy/AdvReac Type Severity Reaction Status Date / Time Penicillins Allergy Verified 01/26/22 10:40 topiramate [From Topamax] Allergy Rash Verified 01/27/22 00:21 Home Medications Medication Instructions Recorded Confirmed Type buspirone 10 mg tablet 10 mg PO TIDP PRN Anxiety 30 days 09/19/17 02/16/22 History linaclotide 72 mcg capsule 72 mcg PO DAILY irritable bowel 09/19/17 02/16/22 History syndrome 30 days levothyroxine 137 mcg tablet 137 mcg PO DAILY hypothryoidism 03/06/19 02/16/22 History montelukast 10 mg tablet 10 mg PO PM allergies 04/30/20 02/16/22 History hydromorphone (PF) 1 mg/mL 0.15 mg intrathecal CONT PRN 07/31/20 02/16/22 History injection syringe chronic pain bupropion HCl 150 mg tablet,12 hr 150 mg PO DAILY mood 09/05/20 02/16/22 History sustained-release esomeprazole magnesium 40 mg 40 mg PO DAILY acid reflux 09/05/20 02/16/22 History capsule,delayed release prucalopride 2 mg tablet 2 mg PO DAILY constipation 09/05/20 02/16/22 History (Motegrity) aspirin 81 mg tablet,delayed 81 mg PO DAILY heart health 09/15/20 02/16/22 History release dicyclomine 10 mg capsule 20 mg PO TID stomach spasms 09/29/20 02/16/22 History latanoprost 0.005 % eye drops 1 drp OPHTHALMIC HS Glaucoma 09/29/20 02/16/22 History cyclobenzaprine 10 mg tablet 10 mg PO TID muscle spasms 11/03/20 02/16/22 History ascorbate calcium (vitamin C) 500 500 mg PO DAILY Supplement 07/08/21 02/16/22 History mg tablet atorvastatin 40 mg tablet 40 mg PO DAILY Cholesterol #90 tabs 07/08/21 02/16/22 Rx lisinopril 20 1 tab PO DAILY blood pressure #90 07/08/21 02/16/22 Rx mg-hydrochlorothiazide 12.5 mg tabs tablet melatonin 10 mg capsule 10 mg PO HSP PRN Sleep 07/08/21 02/16/22 History multivitamin 1 tab PO DAILY Supplement 07/08/21 02/16/22 History spironolactone 50 mg tablet 50 mg PO DAILY fluid retention #90 07/08/21 02/16/22 Rx tabs zinc acetate 25 mg (zinc) capsule 25 mg PO DAILY Supplement 07/08/21 02/16/22 History (Galzin) furosemide 80 mg tablet 40 mg PO BID swelling #180 tabs 08/07/21 02/16/22 Rx famotidine 20 mg tablet 20 mg PO DAILY acid reflux 08/21/21 02/16/22 History estradiol 2 mg tablet 2 mg PO DAILY hormone replacement 01/08/22 02/16/22 History ropinirole 1 mg tablet 1 mg PO HS Restless leg 01/09/22 02/16/22 History gabapentin 300 mg capsule 300 mg PO TID Pain 01/26/22 02/16/22 History dorzolamide 2 % eye drops 1 drp Eye-Both DAILY Glaucoma 01/27/22 02/16/22 History fluticasone propionate 110 1 inh inhalation Q6HP PRN 01/27/22 02/16/22 History mcg/actuation HFA aerosol inhaler Shortness Of Breath (Flovent HFA) promethazine 25 mg tablet 25 mg PO Q6HP PRN Nausea 01/27/22 02/16/22 History topiramate 25 mg tablet 25 mg PO HS migraines 01/27/22 02/16/22 History diclofenac sodium 75 mg 75 mg PO DAILY Pain 02/16/22 02/16/22 History tablet,delayed release fluticasone propionate 110 1 puff inhalation DAILY Breathing 02/16/22 02/16/22 History mcg/actuation HFA aerosol inhaler problems (Flovent HFA) meloxicam 15 mg tablet 15 mg PO DAILY Pain 02/16/22 02/16/22 History sucralfate 1 gram tablet 1 g PO DAILY Supplement 02/16/22 02/16/22 History sucralfate 1 gram tablet 1 g PO DAILY Supplement 02/16/22 02/16/22 History New Prescriptions to Start Prescriptions: Height: 1.8 m Weight: 168.028 kg Laboratory Results:: Laboratory Results - last 24 hr 02/16/22 14:00: WBC 23.3 H*, RBC 4.12 L, Hgb 11.9 L, Hct 38.0, MCV 92.4, MCH 28.8, MCHC 31.2 L, RDW 16.1, Plt Count 468 H, MPV 7.3 L, Neut % (Auto) 87.0 H, Lymph % (Auto) 7.7 L, [place] % (Auto) 3.2, Eos % (Auto) 1.7, Baso % (Auto) 0.4, Neut # (Auto) 20.3 H, Lymph # (Auto) 1.8, Bryan # (Auto) 0.7, Eos # (Auto) 0.4, Baso # (Auto) 0.1, Total Counted 100, Neutrophils % (Manual) 92 H, Lymphocytes % (Manual) 5 L, Monocytes % (Manual) 3, Plate
[2022-02-17 11:46] LABS: Basophils # 0.1 K/mm3 (0-0.2); Basophils % 0.7 % (0.1-2.0); Eosinophils # 0.5 K/mm3 (0.0-0.4); Eosinophils % 3.7 % (0.1-12.0); Hematocrit 38.3 % (37.0-47.0); Hemoglobin 12.2 g/dL (12.2-16.2); Lymphocytes # 1.8 K/mm3 (0.7-4.5); Lymphocytes % 12.7 % (10-50); Mean Corpuscular HGB Conc 31.8 g/dL (31.8-35.4); Mean Corpuscular Volume 91.3 fl (81-99); Mean Platelet Volume 7.5 fl (7.4-10.4); Monocytes # 0.5 K/mm3 (0.1-1.0); Monocytes % 3.7 % (1.7-9.3); Neutrophils % 79.2 % (37.0-80.0); Platelet Count 462 K/mm3 (142-424); Red Blood Count 4.19 M/mm3 (4.20-5.40); White Blood Count 13.9 K/mm3 (4.8-10.8)
[2022-02-17 11:55] LABS: Chloride 106 mmol/L (98-107); Potassium 4.3 mmoL/L (3.5-5.1); Sodium 140 mmol/L (136-145)
[2022-02-17 11:58] LABS: Alanine Aminotransferase 19 U/L (12-78); Albumin Level 3.6 g/dl (3.5-5.0); Albumin/Globulin Ratio 0.9 (1.1-1.8); Alkaline Phosphatase 95 U/L (38-126); Anion Gap 12.3 mEq/L (5-15); Aspartate Amino Transferase 21 U/L (14-36); Bilirubin,Total 0.5 mg/dl (0.2-1.3); Blood Urea Nitrogen 34 mg/dl (7-17); Calcium 8.5 mg/dl (8.4-10.2); Carbon Dioxide 26 mmol/L (22.0-30.0); Creatinine Clearance Estimated 37 mL/min (50-200); Estimated Glomerular Filt Rate 29 ml/min (>60); GFR (African American) 35 ML/MIN (>60); Globulin 3.8 g/dL (1.3-3.2); Glucose 92 mg/dl (74-100); Total Protein,Serum 7.4 g/dl (6.3-8.2)
--- NOTE | 2022-02-17 12:53 | EXP.DC.SUM ---
General Admission date:: 02/16/22 Discharge date: 02/17/22 HPI HPI HPI: Ms. Bergman is a 56-year-old female with a past medical history that is positive for Pancreatitis, HTN, HL, Depression, Chronic pain and fatty liver disease. She presented to [facility] due to an acute one day symptoms onset of weakness associated with hypotension, diarrhea, abdominal pain and nausea. She denies known fevers or similar sick contacts. In the ER she underwent a CT of the abdomen and pelvis that showed a stable pneumobilia compared to prior CT, she had normal LFT's and bilirubin. Lipase was normal. WBC was elevated at 23.3. Urinalysis appears to be contaminated with 5-10 epithelial cells. It was negative for nitrates and leukoesterase. Covid and Flu testing were negative. On presentation, blood pressure was in the 100 range, she was reporting that it had been in the 65 systolic range at home. She was given iv fluids, cultures were drawn in the ER. She was placed on broad spectrum antibiotics and US will be ordered for the am. The plan of care was discussed in length and detail with the patient on admission in the ER. The patient verbalized understanding and agreement with the plan of care. Hospital Course Hospital Course Hospital Course: Patient was admitted for hypotension, BEST, and leukocytosis Following episodes of diarrhea and nausea and poor p.o. intake. Patient received 2 days of antibiotics and IV fluids with improvement of leukocytosis and BEST. Hypotension also resolved. CT abdomen pelvis showed no acute findingsBlood cultures no growth to date. Urine showed no infection. Hypotension and BEST attributed to poor p.o. intake and hypovolemia secondary to GI illness, leukocytosis reactive. On day of discharge both parameters had drastically improved and patient wanted to return home. Recommend follow-up with PCP for repeat lab work. Exam Data for Last 24 hours Vital signs and Labs for Last 24 Hours: Temp Pulse Resp BP Pulse Ox 98.4 F 73 16 106/56 L 97 02/17/22 04:00 02/17/22 04:00 02/17/22 04:00 02/17/22 04:00 02/17/22 04:00 Laboratory Results - last 24 hr 02/16/22 14:00: WBC 23.3 H*, RBC 4.12 L, Hgb 11.9 L, Hct 38.0, MCV 92.4, MCH 28.8, MCHC 31.2 L, RDW 16.1, Plt Count 468 H, MPV 7.3 L, Neut % (Auto) 87.0 H, Lymph % (Auto) 7.7 L, [place] % (Auto) 3.2, Eos % (Auto) 1.7, Baso % (Auto) 0.4, Neut # (Auto) 20.3 H, Lymph # (Auto) 1.8, [place] # (Auto) 0.7, Eos # (Auto) 0.4, Baso # (Auto) 0.1, Total Counted 100, Neutrophils % (Manual) 92 H, Lymphocytes % (Manual) 5 L, Monocytes % (Manual) 3, Platelet Estimate Normal, RBC Morphology Normal 02/16/22 14:00: Sodium 132 L, Potassium 4.5, Chloride 101, Carbon Dioxide 23, Anion Gap 12.5, BUN 64 H, Creatinine 2.60 H, Estimated Creat Clear 26, Estimated GFR 19 L*, Est GFR ( Amer) 23 L, Glucose 89, Calcium 8.2 L, Total Bilirubin 0.3, AST 22, ALT 21, Alkaline Phosphatase 99, Troponin I < 0.01, Total Protein 7.2, Albumin 3.6, Globulin 3.6 H, Albumin/Globulin Ratio 1.0 L 02/16/22 14:00: Troponin I < 0.01, TSH 0.76 02/16/22 14:00: Lipase 139 02/16/22 14:32: Urine Color Yellow, Urine Appearance Sl cloudy, Urine pH 5.5, Ur Specific Strawberry 1.010, Urine Protein Negative, Urine Glucose (UA) Negative, Urine Ketones Negative, Urine Blood Negative, Urine Nitrate Negative, Urine Bilirubin Negative, Urine Urobilinogen 0.2, Ur Leukocyte Esterase Negative, Urine RBC None, Urine WBC None, Ur Squamous Epith Cells 5-10, Urine Bacteria 1+, Urine Mucus 1+ 02/16/22 16:05: Lactate 1.4 02/16/22 20:13: Troponin I < 0.01 02/16/22 : SARS-CoV-2 (PCR) Not detected, Influenza A Untype (PCR) Not detected, Influenza Type B (PCR) Not detected 02/17/22 11:31: WBC 13.9 H D, RBC 4.19 L, Hgb 12.2, Hct 38.3, MCV 91.3, MCH 29.0, MCHC 31.8, RDW 16.0, Plt Count 462 H, MPV 7.5, Neut % (Auto) 79.2, Lymph % (Auto) 12.7, [place] % (Auto) 3.7, Eos % (Auto) 3.7, Baso % (Auto) 0.7, Neut # (Auto) 11.0 H, Lymph # (Auto) 1.8, [place] # (
--- NOTE | 2022-02-17 13:15 | HMH.PHAINT1 ---
Pharmacy Intervention Comments: Home medication list verified via patient interview and external fill history. -Sanna Streeter, PharmD Candidate 2022
--- NOTE | 2022-02-18 15:02 | CARE MANAGER ---
Spoke with patient for post-disharge phone interview, no issues noted.
== END 2022-02-17 13:50 | disposition home or self-care (01) ==
LOC: ER 18:45 → 2ND 18:58
PROVIDERS: Admitting Provider Student in an Organized Health Care Education/Training Program; Emergency Provider Emergency Medicine; PCP Nurse Practitioner Family; Visit Provider Student in an Organized Health Care Education/Training Program
DX: N17.9 Acute kidney failure, unspecified (principal); K83.9 Disease of biliary tract, unspecified; I10 Essential (primary) hypertension; E78.5 Hyperlipidemia, unspecified; G89.29 Other chronic pain; E66.01 Morbid (severe) obesity due to excess calories; Z68.43 Body mass index [BMI] 50.0-59.9, adult; Z79.899 Other long term (current) drug therapy; Z79.890 Hormone replacement therapy
CPT/HCPCS: G0378; 36415; 71045; 74176; 76705; 80053; 81001; 83605; 83690; 84443; 84484; 85007; 85025; 87040; 93005; 94640; 99285; C9803; J1956; J3370; U0003; U0005

== ENCOUNTER → 2022-02-24 16:01 | Outpatient (CLI) | payer MEDICARE, MEDICAID, SELFPAY ==
--- NOTE | 2022-02-24 16:08 | XR_ITS ---
FINAL REPORT CLINICAL HISTORY: PAIN FINDINGS: LEFT SHOULDER 3 views of the left shoulder were obtained. There is no acute fracture or dislocation. There are mild degenerative changes of the acromioclavicular and glenohumeral joints.. There is no soft tissue abnormality. IMPRESSION: Mild degenerative changes with no acute bony abnormality. Reviewed, Interpreted and Dictated by Igor Nam III, MD Transcribed by Tamara Peace Authenticated and [facility]
== END ==
PROVIDERS: PCP Nurse Practitioner Family; Visit Provider Family Medicine
DX: M25.512 Pain in left shoulder (principal)
CPT/HCPCS: 73030

== ENCOUNTER → 2022-03-11 09:22 | Outpatient (POV) | payer MEDICARE, MEDICAID, SELFPAY ==
--- NOTE | 2022-03-11 09:46 | P.PCN_ITS ---
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 Post-procedure Diagnosis:: Same Indications for Procedure:: Patient is a pleasant 56-year-old female who presents today for intrathecal pain pump reprogramming adjustment. The patient is being treated for degenerative disc disease of lumbar spine multilevels with lumbar radiculopathy symptoms. Patient is currently being managed with Dilaudid 10 mg/mL with a daily dose of 1.265 mg/day. Patient denies any side effects from this medication. Patient rates pain a 8 out of 10. Patient states she did recently have a fall while she was in the bathroom. Patient denies any significant trauma or injury. Patient states she is scheduled for an MRI on March 17. Patient is also managed with gabapentin 300 mg 3 times a day. Patient denies any side effects from this medication. She is requesting a refill at today's visit. Drug screen is appropriate. Andres [id number] has been reviewed and is appropriate. Physical exam General: Alert and oriented x3, no acute distress, pleasant and cooperative Lungs: Respirations even and unlabored, symmetrical chest expansion Eyes: PERRL Musculoskeletal: Flexion and extension of lumbar [spine] somewhat guarded secondary to pain, [antalgic gait noted] Neurological: Speech clear, no gross sensory deficit Procedure Details:: Informed consent was obtained and the risk and benefits of the procedure were explained to the patient. Patient was taken to the procedure room where n oninvasive monitoring was placed including noninvasive blood pressure cuff and pulse oximeter. Patient's pump was interrogated and was reprogrammed to Dilaudid 1.4 mg/day. The patient tolerated the procedure well with no complications. Plan and Disposition:: I will refill the patient's gabapentin 300 mg 3 times a day and provide a 1 month supply of this medication. Patient will return to clinic in 2 weeks for reevaluation of symptoms and plan of care. Patient has been instructed to contact the clinic with any concerns before the next appointment. Dr. Canchola has reviewed this note and agrees with this plan of care. This note was dictated using voice recognition software and make contain errors or omissions. -- It Is medically necessary for this patient to continue to have their intrathecal pump refilled at regular intervals. This patient had an intrathecal pain pump implanted after meeting criteria of chronic intractable pain for greater than 3 months and failing conservative treatments. Patient has committed and been compliant to the treatment plan and all planned follow up care. Since implantation of the intrathecal pain pump, the patient has had decreased pain and been more functional. Oral medications have been reduced including intake of oral opioids. Patient continues to do well with intrathecal therapy with decrease in pain symptoms and increase in functional status. Stopping intrathecal medications can lead to life threatening withdrawal, seizures, cardiac arrest, severe pain, and possible . Pumps that are not refilled at regular intervals can be damages and cause and need for replacement. We continually titrate dose and concentration to optimize pain relief and function. We are limited in concentration for certain drugs to safely deliver medications through the pump and stay within the recommendations from the Polyanalgesic Consensus Committee Guidelines. Depending on dose and concentration these pumps may need to be refilled sooner than 3 months as we titrate.
[2022-03-11 10:06] VITALS: BP 150/63; PULSE 75; RESP 18; O2SAT 98; BMI 51.5
== END | disposition home or self-care (01) ==
PROVIDERS: PCP Nurse Practitioner Family; Visit Provider Nurse Practitioner Family
DX: Z45.1 Encounter for adjustment and management of infusion pump (principal); M51.16 Intervertebral disc disorders with radiculopathy, lumbar region
CPT/HCPCS: 62368; 99213; G0463

== ENCOUNTER → 2022-03-22 12:25 | Outpatient (CLI) | payer MEDICARE, MEDICAID, SELFPAY ==
--- NOTE | 2022-03-22 12:28 | MR_ITS ---
FINAL REPORT CLINICAL HISTORY: INJURY DUE TO FALL. shoulder pain FINDINGS: Multi planar MR imaging of the left shoulder was performed. The supraspinatus tendon appears intact. There is no abnormal fluid in the subacromial/subdeltoid bursa. The anterior and posterior glenoid natividad appear intact. The biceps tendon appears intact. There are mild hypertrophic changes at the AC joint. IMPRESSION: Mild hypertrophic change at the AC joint. Reviewed, Interpreted and Dictated by Melvin Giles MD Transcribed by Don Anderson Authenticated and [facility]
== END ==
PROVIDERS: PCP Nurse Practitioner Family; Visit Provider Nurse Practitioner Family
DX: M25.512 Pain in left shoulder (principal); M25.612 Stiffness of left shoulder, not elsewhere classified; W19.XXXD Unspecified fall, subsequent encounter
CPT/HCPCS: 73221

== ENCOUNTER → 2022-03-25 09:37 | Outpatient (POV) | payer MEDICARE, MEDICAID, SELFPAY ==
--- NOTE | 2022-03-25 10:25 | EXP.PAIN.PRO ---
Procedure Date: 03/25/22 Time: 10:34 Anesthesiologist:: Merly Ruiz APRN Complications:: None Pre-procedure Diagnosis:: Degenerative disc disease of lumbar spine with lumbar radiculopathy symptoms, left shoulder pain Post-procedure Diagnosis:: Same Indications for Procedure:: Patient is a pleasant 56-year-old female who presents today for intrathecal pain pump reprogramming adjustment. The patient is being treated for degenerative disc disease of lumbar spine with lumbar radiculopathy symptoms, left shoulder pain. Patient is currently being managed with Dilaudid 10 mg/mL with a daily dose of 1.4 mg/day. Patient denies any side effects from this medication. Patient rates pain a 9 out of 10. Patient continues to state that she experiences significant pain in her left shoulder following a fall in the last few months. Patient did have x-ray and MRI imaging of this joint. Patient is managed with gabapentin 300 mg 3 times a day. Patient denies any side effects from this medication. Drug screen is appropriate. [facility] [id number] has been reviewed and is appropriate. Physical exam General: Alert and oriented x3, no acute distress, pleasant and cooperative Lungs: Respirations even and unlabored, symmetrical chest expansion Eyes: PERRL Musculoskeletal: Flexion and extension of left shoulder somewhat guarded secondary to pain, [antalgic gait noted] Neurological: Speech clear, no gross sensory deficit Procedure Details:: Informed consent was obtained and the risk and benefits of the procedure were explained to the patient. Patient was taken to the procedure room where noninvasive monitoring was placed including noninvasive blood pressure cuff and pulse oximeter. Patient's pump was interrogated and was reprogrammed to Dilaudid 1.54 mg/day. The patient tolerated the procedure well with no complications. Plan and Disposition:: Patient continues to experience significant pain in her left shoulder with limited range of motion. Patient's MRI did show no fractures or dislocations with no acute findings other than mild hypertrophic changes. I have discussed with the patient that she may benefit from a intra-articular shoulder injection. Risk and benefits were discussed with the patient. She would like to proceed forward with this plan of care. We will schedule her for a diagnostic left shoulder intra-articular injection. Patient has been instructed to contact the clinic with any concerns before the next appointment. Dr. Canchola has reviewed this note and agrees with this plan of care. This note was dictated using voice recognition software and make contain errors or omissions. -- It Is medically necessary for this patient to continue to have their intrathecal pump refilled at regular intervals. This patient had an intrathecal pain pump implanted after meeting criteria of chronic intractable pain for greater than 3 months and failing conservative treatments. Patient has committed and been compliant to the treatment plan and all planned follow up care. Since implantation of the intrathecal pain pump, the patient has had decreased pain and been more functional. Oral medications have been reduced including intake of oral opioids. Patient continues to do well with intrathecal therapy with decrease in pain symptoms and increase in functional status. Stopping intrathecal medications can lead to life threatening withdrawal, seizures, cardiac arrest, severe pain, and possible . Pumps that are not refilled at regular intervals can be damages and cause and need for replacement. We continually titrate dose and concentration to optimize pain relief and function. We are limited in concentration for certain drugs to safely deliver medications through the pump and stay within the recommendations from the Polyanalges[employer] Consensus Committee Guidelines. Depending on dose and concentration these pumps may need to be refilled sooner than 3 months as we titrate.
[2022-03-25 10:35] VITALS: BP 126/44; PULSE 85; RESP 18; O2SAT 97; BMI 51.2
== END | disposition home or self-care (01) ==
PROVIDERS: PCP Nurse Practitioner Family; Visit Provider Nurse Practitioner Family
DX: Z45.1 Encounter for adjustment and management of infusion pump (principal); M51.16 Intervertebral disc disorders with radiculopathy, lumbar region; M25.512 Pain in left shoulder
CPT/HCPCS: 62368; 99213; G0463

== ENCOUNTER 2022-03-30 08:47 | Day surgery (SDC) | payer MEDICARE, MEDICAID, SELFPAY ==
[2022-03-30 09:06] VITALS: BP 140/68; PULSE 79; RESP 18; TEMP 36.2; O2SAT 98; BMI 50.9
--- NOTE | 2022-03-30 09:27 | P.PCN_ITS ---
Procedure Date: 03/30/22 Time: 09:18 Anesthesiologist:: Pee Lambert CRNA Complications:: None Pre-procedure Diagnosis:: Left shoulder osteoarthritis Post-procedure Diagnosis:: Same. Indications for Procedure:: Patient presents today for left shoulder intra-articular injection. Patient has had this in the past with significant improvement. Patient has difficulty with range of motion in regards to the left shoulder. However, she has good strength. Procedure Details:: Procedure Details: Left shoulder intra-articular injection Informed consent was obtained risk and benefits of the procedure were explained to the patient. Patient was taken to the procedure room. The left shoulder was prepped using ChloraPrep. A 25-gauge needle was used first anteriorly, laterally, and then posteriorly to inject 10 mL bupivacaine 0.25% and Depo-Med rol 40 mg. Patient tolerated procedure well with no complications. Plan and Disposition:: Patient was discharged without incident.
[2022-03-30 09:28] VITALS: BP 137/58; PULSE 75; RESP 18; O2SAT 98
== END 2022-03-30 09:28 | disposition home or self-care (01) ==
PROVIDERS: PCP Nurse Practitioner Family; Visit Provider Nurse Anesthetist, Certified Registered
DX: M19.012 Primary osteoarthritis, left shoulder (principal)
CPT/HCPCS: 20610; J1040

== ENCOUNTER → 2022-04-08 15:38 | Outpatient (CLI) | payer MEDICARE, MEDICAID, SELFPAY | PROVIDERS: Visit Provider Nurse Practitioner Family | DX: B35.1 Tinea unguium (principal); L60.8 Other nail disorders; M79.674 Pain in right toe(s); M79.675 Pain in left toe(s); Z51.89 Encounter for other specified aftercare; B96.89 Other specified bacterial agents as the cause of diseases classified elsewhere | CPT/HCPCS: 87070; 87077; 87186; 87205; 87220; 88304; 88312 ==

== ENCOUNTER → 2022-04-15 11:04 | Outpatient (CLI) | payer MEDICARE, MEDICAID, SELFPAY ==
--- NOTE | 2022-04-15 11:30 | XR_ITS ---
FINAL REPORT CLINICAL HISTORY: ulcer of 2nd toe COMPARISON: None FINDINGS: AP, oblique and lateral views of the right foot were obtained. There is no prior exam for comparison. There is no acute fracture or dislocation. There is an old fracture of the head of the proximal phalanx of the great toe. There is multi joint degenerative disease. There is mild soft tissue edema of the 2nd toe. No subcutaneous air. The remaining soft tissues are without acute abnormality. IMPRESSION: No acute osseous abnormality. Degenerative disease. Soft tissue edema 2nd toe. Reviewed, Interpreted and Dictated by Bobbi Clement MD Transcribed by Elda Polanco Authenticated and [facility]
[2022-04-15 12:14] LABS: Basophils # 0.1 K/mm3 (0-0.2); Basophils % 0.7 % (0.1-2.0); Eosinophils # 0.3 K/mm3 (0.0-0.4); Eosinophils % 2.2 % (0.1-12.0); Hematocrit 38.4 % (37.0-47.0); Hemoglobin 12.1 g/dL (12.2-16.2); Lymphocytes # 2.2 K/mm3 (0.7-4.5); Lymphocytes % 18.4 % (10-50); Mean Corpuscular HGB Conc 31.5 g/dL (31.8-35.4); Mean Corpuscular Hemoglobin 29.1 pg (27.0-31.2); Mean Corpuscular Volume 92.4 fl (81-99); Mean Platelet Volume 7.8 fl (7.4-10.4); Monocytes # 0.6 K/mm3 (0.1-1.0); Neutrophils # 8.8 K/mm3 (1.8-7.8); Neutrophils % 73.8 % (37.0-80.0); Platelet Count 545 K/mm3 (142-424); Red Blood Count 4.16 M/mm3 (4.20-5.40); Red Cell Distribution Width 16.1 % (11.5-17.5); White Blood Count 11.9 K/mm3 (4.8-10.8)
[2022-04-15 12:33] LABS: Alanine Aminotransferase 21 U/L (12-78); Albumin Level 3.9 g/dl (3.5-5.0); Alkaline Phosphatase 112 U/L (38-126); Anion Gap 10.3 mEq/L (5-15); Aspartate Amino Transferase 21 U/L (14-36); Bilirubin,Total 0.4 mg/dl (0.2-1.3); Blood Urea Nitrogen 19 mg/dl (7-17); Calcium 9.1 mg/dl (8.4-10.2); Carbon Dioxide 26 mmol/L (22.0-30.0); Chloride 100 mmol/L (98-107); Estimated Glomerular Filt Rate 39 ml/min (>60); GFR (African American) 47 ML/MIN (>60); Globulin 3.8 g/dL (1.3-3.2); Glucose 90 mg/dl (74-100); Potassium 4.3 mmoL/L (3.5-5.1); Sodium 132 mmol/L (136-145); Total Protein,Serum 7.7 g/dl (6.3-8.2)
[2022-04-15 12:39] LABS: C-Reactive Protein 7.8 mg/L (0-4)
[2022-04-15 13:07] LABS: Erythrocyte Sedimentation Rate 49 mm/hr (0-30)
== END ==
PROVIDERS: PCP Nurse Practitioner Family; Visit Provider Nurse Practitioner Family
DX: Z51.89 Encounter for other specified aftercare (principal); M79.673 Pain in unspecified foot
CPT/HCPCS: 36415; 73630; 80053; 85025; 85651; 86140

== ENCOUNTER 2022-04-18 13:19 | Inpatient (IN) | payer MEDICARE, MEDICAID, SELFPAY ==
[2022-04-18] VITALS (25 sets, daily range): BP systolic 64–119; BP diastolic 24–91; PULSE 79–93; RESP 15–18; TEMP 36.4–36.6; O2SAT 93–99; BMI 51.5; BMI 52.3
--- NOTE | 2022-04-18 13:33 | HMH.EDGENADL ---
Discharge Plan Disposition Patient Disposition: Admitted as Observation Condition: Fair Prescriptions Prescriptions: No Action linaclotide 72 mcg capsule 72 mcg PO DAILY 30 Days buspirone 10 mg tablet 10 mg PO TID PRN (Reason: Anxiety) 30 Days bupropion HCl 150 mg tablet sustained-release 12 hr 150 mg PO BID Motegrity 2 mg tablet 2 mg PO DAILY esomeprazole magnesium 40 mg capsule,delayed release(DR/EC) 40 mg PO DAILY multivitamin Tablet 1 tab PO DAILY ascorbate calcium (vitamin C) 500 mg tablet 500 mg PO DAILY zinc acetate 25 mg (zinc) capsule 25 mg PO DAILY melatonin 10 mg capsule 10 mg PO HSP PRN (Reason: Sleep) atorvastatin 40 mg tablet 40 mg PO DAILY Qty: 90 3RF lisinopril-hydrochlorothiazide 20-12.5 mg tablet 1 tab PO DAILY Qty: 90 3RF Hold Instructions: pending eval at follow-up spironolactone 50 mg tablet 50 mg PO DAILY Qty: 90 3RF furosemide 80 mg tablet 40 mg PO BID Qty: 180 3RF dicyclomine 10 mg capsule 20 mg PO TID latanoprost 0.005 % drops 1 drp Eye-Both HS levofloxacin 750 mg tablet 750 mg PO DAILY 14 Days Qty: 14 0RF levothyroxine 137 MCG tablet 137 mcg PO DAILY hydromorphone (PF) 1 MG/ML syringe 0.15 mg IT CONT PRN (Reason: chronic pain) Rx Instructions: medication administered via intrathecal pain pump. total volume of pump is 20ml. topiramate 25 mg tablet 25 mg PO HS Label Comments: TAKE 1 TABLET BY MOUTH ONCE DAILY AT BEDTIME dorzolamide 2 % drops 1 drp Eye-Both DAILY Label Comments: INSTILL 1 DROP INTO EACH EYE IN THE MORNING montelukast 10 MG tablet 10 mg PO PM aspirin 81 MG tablet,delayed release (DR/EC) 81 mg PO DAILY cyclobenzaprine 10 MG tablet 10 mg PO HS ropinirole 1 mg tablet 1 mg PO HS Label Comments: TAKE ONE TABLET BY MOUTH 1-3 HOURS BEFORE BEDTIME NIGHTLY gabapentin 300 mg capsule 300 mg PO TID Qty: 90 0RF meloxicam 15 mg tablet 15 mg PO DAILY Label Comments: TAKE 1 TABLET BY MOUTH ONCE DAILY sucralfate 1 gram tablet 1 g PO TID fluticasone propionate [Flovent HFA] 110 mcg/actuation HFA aerosol inhaler 2 puff INHALATION BID brimonidine 0.2 % drops 1 drp Eye-Both BID Label Comments: INSTILL 1 DROP INTO EACH EYE TWICE DAILY DIRECTED diclofenac sodium 75 mg tablet,delayed release (DR/EC) 75 mg PO BID estradiol 2 mg tablet See Rx Instructions .ROUTE .COMPLEX Rx Instructions: TAKE 1 TABLET EVERY DAY FOR HRT; PATIENT WILL NEED TO MAKE AN APPOINTMENT WITH DR CARREON BEFORE ANY REFILLS mupirocin 2 % ointment 1 applic topical BID Referrals Follow up/Referrals: Gita Muhammad APRN [Primary Care Provider] - See instructions Clinical Impressions Clinical Impression: BEST (acute kidney injury), Acute hypotension Discharge ED Provider: Gareth Biggs General Adult HPI General Chief complaint: Dizziness Stated complaint: SOA Dizzy possible low BP Time Seen by Provider: 04/18/22 13:29 History of Present Illness HPI narrative: Patient states that she feels like she is dehydrated and blood pressure is low. Since the night before last she has felt dizzy, tingling of hands and feet. Denies vomiting, diarrhea, fever, any pain, chest pain, shortness of breath, cough or URI symptoms, urinary symptoms. She was recently started on Levaquin for cellulitis of the right second toe, prescribed by sales account associate. She has had 3-4 doses. No rash. Related Data Home Medications Medication Instructions Recorded Confirmed buspirone 10 mg tablet 10 mg PO TID PRN Anxiety 30 days 09/19/17 04/18/22 linaclotide 72 mcg capsule 72 mcg PO DAILY irritable bowel 09/19/17 04/18/22 syndrome 30 days levothyroxine 137 mcg tablet 137 mcg PO DAILY hypothryoidism 03/06/19 04/18/22 montelukast 10 mg tablet 10 mg PO PM allergies 04/30/20 04/18/22 hydr
--- NOTE | 2022-04-18 13:41 | XR_ITS ---
PROCEDURE INFORMATION: Exam: XR Chest Exam date and time: 04/18/2022 2:10 PM Age: 56 years old Clinical indication: Shortness of breath and other: Low BP TECHNIQUE: Imaging protocol: Radiologic exam of the chest. Views: 1 view. COMPARISON: CR XR CHEST PORTABLE 02/16/2022 3:42 PM FINDINGS: Lungs: No evidence of pneumonia or interstitial edema. Pleural spaces: Unremarkable. No pleural effusion. No pneumothorax. Heart/Mediastinum: Unremarkable. No cardiomegaly. Bones/joints: Unremarkable. IMPRESSION: No evidence of pneumonia or interstitial edema.
--- NOTE | 2022-04-18 13:43 | ECG_ITS ---
APPROVED REPORT Exam: Resting ECG HR:84 bpm ECG Measurements Heart Rate 84 AXES NJ 154 P 62 QRSd 106 QRS -30 QT 341 T 54 QTc 381 Conclusion SINUS RHYTHM LOW QRS VOLTAGE IN PRECORDIAL LEADS Late R wave progression ABNORMAL ECG UNCONFIRMED REPORT Electronically signed by : Dandy Del Toro MD 04/18/2022 21:06:57
[2022-04-18 14:00] LABS: Alanine Aminotransferase 20 U/L (12-78); Albumin Level 3.8 g/dl (3.5-5.0); Alkaline Phosphatase 93 U/L (38-126); Anion Gap 13.2 mEq/L (5-15); Aspartate Amino Transferase 20 U/L (14-36); Bilirubin,Total 0.6 mg/dl (0.2-1.3); Blood Urea Nitrogen 57 mg/dl (7-17); Calcium 8.3 mg/dl (8.4-10.2); Carbon Dioxide 22 mmol/L (22.0-30.0); Chloride 100 mmol/L (98-107); Creatinine Clearance Estimated 14 mL/min (50-200); Estimated Glomerular Filt Rate 9 ml/min (>60); GFR (African American) 11 ML/MIN (>60); Globulin 3.7 g/dL (1.3-3.2); Glucose 76 mg/dl (74-100); Magnesium 2.3 mg/dl (1.6-2.3); Potassium 4.2 mmoL/L (3.5-5.1); Sodium 131 mmol/L (136-145); Total Protein,Serum 7.5 g/dl (6.3-8.2)
--- NOTE | 2022-04-18 14:07 | PC.NURSE ---
LAB CALLED WITH CRITICAL CREAT OF 4.8 MD AWARE
[2022-04-18 14:09] LABS: Basophils # 0.1 K/mm3 (0-0.2); Basophils % 0.5 % (0.1-2.0); Eosinophils # 0.2 K/mm3 (0.0-0.4); Eosinophils % 1.6 % (0.1-12.0); Hematocrit 35.6 % (37.0-47.0); Hemoglobin 11.4 g/dL (12.2-16.2); Lymphocytes # 2.4 K/mm3 (0.7-4.5); Lymphocytes % 15.7 % (10-50); Mean Corpuscular Hemoglobin 29.1 pg (27.0-31.2); Mean Platelet Volume 7.5 fl (7.4-10.4); Monocytes # 0.6 K/mm3 (0.1-1.0); Monocytes % 4.2 % (1.7-9.3); Neutrophils # 11.8 K/mm3 (1.8-7.8); Neutrophils % 78.1 % (37.0-80.0); Platelet Count 486 K/mm3 (142-424); Red Blood Count 3.91 M/mm3 (4.20-5.40); Red Cell Distribution Width 16.2 % (11.5-17.5); White Blood Count 15.1 K/mm3 (4.8-10.8)
[2022-04-18 14:11] LABS: Microscopic, Urine URINE MICROSCOPIC (MICROSCOPIC)
[2022-04-18 14:17] LABS: Troponin I < 0.01 ng/ml (0.00-0.034)
[2022-04-18 14:19] LABS: MANUAL DIFFERENTIAL MANUAL DIFFERENTIAL (MANUAL DIFF)
[2022-04-18 14:30] LABS: Lactic Acid 0.9 mmol/L (0.7-2.1)
[2022-04-18 14:55] LABS: Appearance,Urine CLOUDY (Clear); Blood, Urine Negative (Negative); Color,Urine YELLOW (Yellow); Glucose,Urine (UA) Negative (Negative); Ketones,Urine 1+ (Negative); Leukocyte Esterase,Urine TRACE (Negative); Nitrate,Urine Negative (Negative); Protein,Urine 1+ (Negative); Specific Gravity, Urine >= 1.030 (1.005-1.030); Urobilinogen,Urine 0.2 EU/dl (0.2)
[2022-04-18 14:56] LABS: Bilirubin,Urine 1+ (Negative)
[2022-04-18 15:05] LABS: Lipase 74 U/L (23-300)
[2022-04-18 15:07] LABS: Lymphocytes % 20 % (10-50); Monocytes % 6 % (2-9); Neutrophils % 74 % (42-76); Platelet Estimate Normal; RBC Morphology Normal; Total Cells Counted 100
--- NOTE | 2022-04-18 15:10 | PC.NURSE ---
checked on pt states her hip down to her feet hurting, adjusted bed to see if it could make her anymore comfortable, call light at bedside
[2022-04-18 15:12] LABS: Bacteria,Urine Trace /lpf
--- NOTE | 2022-04-18 15:20 | PC.NURSE ---
rounded on pt, nursing staff at bs, assessing IV
--- NOTE | 2022-04-18 15:21 | PC.NURSE ---
Called House for admission
[2022-04-18 15:53] LABS: Thyroid Stimulating Hormone 3.78 uIU/mL (0.465-4.68)
--- NOTE | 2022-04-18 15:55 | PC.NURSE ---
dr king @ bs
--- NOTE | 2022-04-18 15:57 | PC.NURSE ---
according to IBW, pt has met sepsis bolus
[2022-04-18 15:59] LABS: Coronavirus 19, PCR Not Detected (NotDetected); Influenza A, PCR Not Detected (NotDetected); Influenza B, PCR Not Detected (NotDetected)
--- NOTE | 2022-04-18 16:14 | PC.NURSE ---
pt resting no complaints at this time, waiting transfer to [facility]
--- NOTE | 2022-04-18 16:30 | PC.NURSE ---
report called to [facility] second floor
--- NOTE | 2022-04-18 16:34 | EXP.HP ---
History of Present Illness *Admission Date: 04/18/22 *Reason for visit:: Chief complaint: Weakness *History of present illness: This is a 56-year-old female who presents to [facility] emergency department for concerns of weakness and feeling like she is dehydrated. Her past medical history significant for chronic low back pain on chronic NSAID therapy and gabapentin, hypertension on loop, YVAN inhibitor, thiazide and aldosterone antagonist therapy, hypothyroidism, BMI 52, chronic pancreatitis and fatty liver. She reports several days of intense fatigue and difficulty getting out of bed. Over the last 48 hours she identifies tingling to her hands and feet. She denies pruritus. She reports similar symptomatology when her kidneys were bad in December of this past year. She denies vomiting, diarrhea, abdominal pain, hallucinations but does endorse difficulty concentrating. She reports the visit with her site monitor on April 08 and was placed on Levaquin. She reports that she has taken 10 of the 14 doses prescribed. In the ED her blood pressures are soft, CBC identifies a mild leukocytosis with hemoglobin 11.4, normal platelet count, sodium 131, potassium 4.2, BUN 57, creatinine 4.8 (baseline 1.0). Her ECG identifies sinus rhythm rate 84 with QTc 381ms. Her urinalysis identifies 1+ urine protein. [facility] Medical History (Updated 04/18/22 @ 16:44 by Romero Gonzalez MD) Asthma CAD (coronary artery disease) Congestive heart failure Ex-smoker History of back pain History of gastroesophageal reflux (GERD) HTN (hypertension) Hyperlipidemia IBS (irritable bowel syndrome) Migraine Morbid obesity BRAULIO (obstructive sleep apnea) Surgical History (Updated 04/18/22 @ 16:44 by Romero Gonzalez MD) H/O bilateral salpingo-oophorectomy H/O: hysterectomy History of cholecystectomy History of colonoscopy S/P insertion of intrathecal pump Family History Other Breast cancer Colon cancer Family history of Alzheimer's disease Family history of COPD (chronic obstructive pulmonary disease) Family history of GERD Family history of TIAs Family history of acute congestive heart failure Family history of asthma Family history of diabetes mellitus type II Family history of hyperlipidemia Family history of hypertension Family history of hypothyroidism Family history of irritable bowel syndrome Family history of kidney stone Family history of migraine headaches Family history of myocardial infarction Heart disease Lung cancer Stroke Social History Smoking Status: Former smoker years smoked: 20 smoking status stop date: 18 years ago alcohol intake: former substance use type: denies use current occupational status: disabled Travel in the last 8 weeks: None household members: spouse and children housing: house lives independently: No marital status: current occupational exposures/hazards: No caffeine: Yes Review of Systems Review of Systems Review of systems:: pertinent systems reviewed and negative unless documented below Constitutional Constitutional: Reports weakness ENT Ears, Nose, Mouth, and Throat: Reports dizziness *Cardiovascular Cardiovascular: Denies chest pain, Denies chest pain at rest and Reports dyspnea *Respiratory Respiratory: Reports dyspnea *Gastrointestinal Gastrointestinal: Denies loose stools and Denies vomiting *Genitourinary Genitourinary: Denies dysuria *Musculoskeletal Musculoskeletal: Denies numbness and Reports tingling *Neurologic Neurologic: Reports dizziness, Denies numbness, Reports tingling and Reports weakness Meds Home Medications and Allergies Home Medications Medication Instructions Recorded Confirmed Type buspirone 10 mg tablet 10 mg PO TID PRN Anxiety 30 days 09/19/17 04/18/22 History linaclotide 72 mcg capsule 72 mcg PO DAILY irritable
[2022-04-18 16:38] LABS: Uric Acid 7.9 mg/dl (2.5-6.2)
[2022-04-18 16:39] LABS: Creatine Kinase 59 U/L (30-135)
[2022-04-18 16:44] LABS: Creatinine,Urine Random 238 mg/dL (Not Estab.)
--- NOTE | 2022-04-18 16:47 | PC.NURSE ---
arrived to floor by w/C from ED
[2022-04-18 16:48] LABS: Microalbumin/Creatinine Ratio 59.1
--- NOTE | 2022-04-18 17:39 | PC.NURSE ---
new admit today. denies pain, not requiring o2 support.
[2022-04-19 04:00] VITALS: BP 98/50; PULSE 72; RESP 20; TEMP 36.6; O2SAT 93; BMI 53.2
--- NOTE | 2022-04-19 06:53 | PC.NURSE ---
PT HAS NOT SLEPT MUCH THIS SHIFT. PAIN TREATED PER APR. VSS. AMBULATING WITH X1 ASSIST.
[2022-04-19 07:26] LABS: Basophils # 0.1 K/mm3 (0-0.2); Eosinophils # 0.4 K/mm3 (0.0-0.4); Eosinophils % 3.4 % (0.1-12.0); Lymphocytes # 1.8 K/mm3 (0.7-4.5); Mean Corpuscular HGB Conc 31.4 g/dL (31.8-35.4); Red Blood Count 3.48 M/mm3 (4.20-5.40)
[2022-04-19 07:34] LABS: Basophils % 0.8 % (0.1-2.0); Hematocrit 32.6 % (37.0-47.0); Lymphocytes % 16.1 % (10-50); Mean Corpuscular Hemoglobin 29.4 pg (27.0-31.2); Mean Corpuscular Volume 93.6 fl (81-99); Mean Platelet Volume 8.2 fl (7.4-10.4); Monocytes # 0.7 K/mm3 (0.1-1.0); Neutrophils # 8.4 K/mm3 (1.8-7.8); Neutrophils % 73.7 % (37.0-80.0); Platelet Count 441 K/mm3 (142-424); Red Cell Distribution Width 16.4 % (11.5-17.5); White Blood Count 11.4 K/mm3 (4.8-10.8)
[2022-04-19 07:35] LABS: Hemoglobin 10.2 g/dL (12.2-16.2)
[2022-04-19 07:36] LABS: Anion Gap 9.4 mEq/L (5-15); Blood Urea Nitrogen 50 mg/dl (7-17); Calcium 7.3 mg/dl (8.4-10.2); Carbon Dioxide 24 mmol/L (22.0-30.0); Chloride 100 mmol/L (98-107); Creatinine Clearance Estimated 22 mL/min (50-200); Estimated Glomerular Filt Rate 16 ml/min (>60); GFR (African American) 19 ML/MIN (>60); Glucose 94 mg/dl (74-100); Magnesium 2.2 mg/dl (1.6-2.3); Phosphorous 3.3 mg/dl (2.5-4.5); Potassium 4.4 mmoL/L (3.5-5.1); Sodium 129 mmol/L (136-145)
--- NOTE | 2022-04-19 07:52 | HMH.PHAINT1 ---
Pharmacy Intervention Comments: Medication reconciliation completed using external fill history and [facility] report
[2022-04-19 08:00] VITALS: BP 126/74; PULSE 82; RESP 19; TEMP 36.4; O2SAT 96
--- NOTE | 2022-04-19 08:00 | US_ITS ---
FINAL REPORT TECHNIQUE: Ultrasound images of the kidneys were obtained. CLINICAL HISTORY: Creatinine 4.8 (BEST) FINDINGS: US RETROPERITONEAL The right kidney measures 9 cm in length. There is renal cortical thinning. There is no hydronephrosis. The left kidney measures9 cm in length. There is no hydronephrosis. The spleen measures 10.8 cm and is unremarkable. IMPRESSION: Right renal cortical thinning, otherwise unremarkable exam. Reviewed, Interpreted and Dictated by Igor Nam III, MD Transcribed by Tamara Peace Authenticated and [facility]
--- NOTE | 2022-04-19 13:30 | EXP.PN ---
Subjective *Date: 04/19/22 *Time: 13:30 Interval history: Date of service April 19, 2022 The patient is accompanied by her . She reports no acute events overnight. She is due to go downstairs for her renal ultrasound. We have reviewed and discussed her morning labs and I have personally interpreted her labs as follows: A CBC with an improved leukocytosis white blood cell count 11.4, stable hemoglobin 10.2 platelets 441. Her electrolytes identify sodium 129, potassium 4.4, chloride 100, CO2 24, BUN 50 and creatinine 3.0 which has improved. Her glucose is stable at 94. Exam Data for Last 24 hours Vital signs and Labs for Last 24 Hours: Temp Pulse Resp BP Pulse Ox 97.5 F L 82 19 126/74 96 04/19/22 08:00 04/19/22 08:00 04/19/22 08:00 04/19/22 08:00 04/19/22 08:00 Laboratory Results - last 24 hr 04/18/22 13:35: WBC 15.1 H, RBC 3.91 L, Hgb 11.4 L, Hct 35.6 L, MCV 91.0, MCH 29.1, MCHC 32.0, RDW 16.2, Plt Count 486 H, MPV 7.5, Neut % (Auto) 78.1, Lymph % (Auto) 15.7, Spencer % (Auto) 4.2, Eos % (Auto) 1.6, Baso % (Auto) 0.5, Neut # (Auto) 11.8 H, Lymph # (Auto) 2.4, Spencer # (Auto) 0.6, Eos # (Auto) 0.2, Baso # (Auto) 0.1, Total Counted 100, Neutrophils % (Manual) 74, Lymphocytes % (Manual) 20, Monocytes % (Manual) 6, Platelet Estimate Normal, RBC Morphology Normal 04/18/22 13:35: Sodium 131 L, Potassium 4.2, Chloride 100, Carbon Dioxide 22, Anion Gap 13.2, BUN 57 H, Creatinine 4.80 H, Estimated Creat Clear 14, Estimated GFR 9 L*, Est GFR ( Amer) 11 L*, Glucose 76, Calcium 8.3 L, Magnesium 2.3, Total Bilirubin 0.6, AST 20, ALT 20, Alkaline Phosphatase 93, Troponin I < 0.01, Total Protein 7.5, Albumin 3.8, Globulin 3.7 H, Albumin/Globulin Ratio 1.0 L 04/18/22 13:35: Lipase 74 04/18/22 13:35: TSH 3.78 04/18/22 13:35: Uric Acid 7.9 H, Total Creatine Kinase 59 04/18/22 14:00: Lactate 0.9 04/18/22 14:01: Urine Color Yellow, Urine Appearance Cloudy, Urine pH 5.0, Ur Specific [place] >= 1.030, Urine Protein 1+, Urine Glucose (UA) Negative, Urine Ketones 1+, Urine Blood Negative, Urine Nitrate Negative, Urine Bilirubin 1+ A, Urine Urobilinogen 0.2, Ur Leukocyte Esterase Trace, Urine RBC None, Urine WBC 3-5, Ur Squamous Epith Cells 10-20, Urine Bacteria Trace 04/18/22 14:01: Urine Creatinine 238, Urine Microalbumin 140.700 H, Microalb/Creat Ratio 59.1 04/18/22 15:38: SARS-CoV-2 (PCR) Not detected, Influenza A Untype (PCR) Not detected, Influenza Type B (PCR) Not detected 04/19/22 06:15: WBC 11.4 H, RBC 3.48 L, Hgb 10.2 L D, Hct 32.6 L, MCV 93.6, MCH 29.4, MCHC 31.4 L, RDW 16.4, Plt Count 441 H, MPV 8.2, Neut % (Auto) 73.7, Lymph % (Auto) 16.1, Spencer % (Auto) 6.0, Eos % (Auto) 3.4, Baso % (Auto) 0.8, Neut # (Auto) 8.4 H, Lymph # (Auto) 1.8, Spencer # (Auto) 0.7, Eos # (Auto) 0.4, Baso # (Auto) 0.1 04/19/22 06:15: Sodium 129 L, Potassium 4.4, Chloride 100, Carbon Dioxide 24, Anion Gap 9.4, BUN 50 H, Creatinine 3.00 H D, Estimated Creat Clear 22, Estimated GFR 16 L*, Est GFR ( Amer) 19 L* D, Glucose 94 D, Calcium 7.3 L, Phosphorus 3.3, Magnesium 2.2 I & O for Last 24 hours: Intake & Output 04/16/22 04/17/22 04/18/22 04/19/22 23:59 23:59 23:59 23:59 Intake Total 0 / 0 2450 / 2450 Output Total 0 / 0 100 / 100 Balance 0 / 0 2350 / 2350 Weight 170.125 kg 172.501 kg Constitutional Constitutional: no acute distress and cooperative *Routine HEENT Exam Head: Present normocephalic Eye: Present EOMI and PERRL ENT: Present mucous membranes moist *Routine Neck Exam Neck: Present supple; Absent lymphadenopathy *Routine Respiratory Exam Respiratory: Present CTA bilaterally *Routine Cardiovascular Exam Cardiovascular: Present RRR *Routine Abdominal Exam Abdominal: Present soft and normoactive bowel sounds; Absent tenderness *Routine Extremities Exam Extremities: Absent cyanosis, clubbing or edema *Routine Skin Exam Skin: Present warm; Absent rash *Routine Neurological Exam Neurological: Present alert, oriented X3, moving all extr
[2022-04-19 13:43] VITALS: BMI 53.0
--- NOTE | 2022-04-19 13:56 | PC.NURSE ---
Pt alert and oriented. VSS. Up to BR with walker and SBA for voids and small loose BM's. [place] for chronic back pain. IV fluids infusing per orders. On room air. Education provided regarding cardiac diet but has family bring her outside food.
[2022-04-19 15:40] VITALS: BP 109/53; PULSE 74; RESP 20; TEMP 36.6; O2SAT 96
[2022-04-19 20:00] VITALS: BP 113/50; PULSE 70; RESP 18; TEMP 36.7
[2022-04-20] VITALS: BP 92/50; PULSE 75; RESP 18; TEMP 37.1
[2022-04-20 04:00] VITALS: BP 109/57; PULSE 59; RESP 18; TEMP 36.8; O2SAT 96; BMI 52.5
--- NOTE | 2022-04-20 05:06 | PC.NURSE ---
patient rested well through the night. stable on room air. complaints of headache. one time dose of fiorcet given per .
[2022-04-20 06:23] LABS: Anion Gap 6.1 mEq/L (5-15); Blood Urea Nitrogen 28 mg/dl (7-17); Carbon Dioxide 29 mmol/L (22.0-30.0); Chloride 104 mmol/L (98-107); Creatinine Clearance Estimated 39 mL/min (50-200); Estimated Glomerular Filt Rate 31 ml/min (>60); GFR (African American) 37 ML/MIN (>60); Glucose 108 mg/dl (74-100); Potassium 4.1 mmoL/L (3.5-5.1); Sodium 135 mmol/L (136-145)
[2022-04-20 06:24] LABS: Basophils # 0.1 K/mm3 (0-0.2); Basophils % 0.7 % (0.1-2.0); Eosinophils # 0.2 K/mm3 (0.0-0.4); Eosinophils % 3.1 % (0.1-12.0); Hematocrit 31.6 % (37.0-47.0); Hemoglobin 10.3 g/dL (12.2-16.2); Mean Corpuscular HGB Conc 32.7 g/dL (31.8-35.4); Mean Corpuscular Hemoglobin 29.9 pg (27.0-31.2); Mean Corpuscular Volume 91.6 fl (81-99); Mean Platelet Volume 7.5 fl (7.4-10.4); Monocytes # 0.6 K/mm3 (0.1-1.0); Monocytes % 7.4 % (1.7-9.3); Neutrophils % 63.8 % (37.0-80.0); Platelet Count 397 K/mm3 (142-424); Red Blood Count 3.45 M/mm3 (4.20-5.40); Red Cell Distribution Width 16.3 % (11.5-17.5); White Blood Count 7.8 K/mm3 (4.8-10.8)
[2022-04-20 07:41] VITALS: BP 117/50; PULSE 78; RESP 17; TEMP 37; O2SAT 97
[2022-04-20 08:50] LABS: VBG HCO3 20.3 mmol/L (23-30); VBG PCO2 45.5 mmol/L (35-51); VBG PH 7.27 mmol/L (7.31-7.41); VBG PO2 35.4 mmol/L (28-40)
[2022-04-20 08:51] LABS: VBG Base Excess -6.7 mmol/L (-2.4-2.3); VBG Total CO2 21.7 mmol/L (23-27)
[2022-04-20 11:01] LABS: Sodium, Urine 37 mmol/L (Not Estab.)
--- NOTE | 2022-04-20 11:43 | EXP.DC.SUM ---
General Admission date:: 04/18/22 Discharge date: 04/20/22 HPI HPI HPI: This is a 56-year-old female who presents to [facility] emergency department for concerns of weakness and feeling like she is dehydrated. Her past medical history significant for chronic low back pain on chronic NSAID therapy and gabapentin, hypertension on loop, YVAN inhibitor, thiazide and aldosterone antagonist therapy, hypothyroidism, BMI 52, chronic pancreatitis and fatty liver. She reports several days of intense fatigue and difficulty getting out of bed. Over the last 48 hours she identifies tingling to her hands and feet. She denies pruritus. She reports similar symptomatology when her kidneys were bad in December of this past year. She denies vomiting, diarrhea, abdominal pain, hallucinations but does endorse difficulty concentrating. She reports the visit with her certified legal investigator on April 08 and was placed on Levaquin. She reports that she has taken 10 of the 14 doses prescribed. In the ED her blood pressures are soft, CBC identifies a mild leukocytosis with hemoglobin 11.4, normal platelet count, sodium 131, potassium 4.2, BUN 57, creatinine 4.8 (baseline 1.0). Her ECG identifies sinus rhythm rate 84 with QTc 381ms. Her urinalysis identifies 1+ urine protein. Hospital Course Hospital Course Hospital Course: 56-year-old female that presents to [facility] emergency department feeling weak and found to have?BUN of 57 and creatinine 4.8.? Her medication list is reviewed and she confirms that she is on dual NSAID therapy with diclofenac and Mobic, recently prescribed Levaquin, loop diuretic therapy, YVAN inhibitor therapy, thiazide diuretic therapy, aldosterone antagonist therapy and gabapentin. Acute kidney injury Most likely drug induced nephrotoxicity. We will stopped offending agents including diclofenac, meloxicam, diuretic, recently prescribed Levaquin, and her YVAN inhibitor. Provided with gentle rehydration with gradual improvement in her creatinine to 1.7 on day of discharge. Baseline is approximately 1.4 from chart review over the past 3 months. Recommend continuing to avoid anti-inflammatories until kidney function normalizes. At that point only single therapy, dual therapy will likely cause recurrence of this injury. Blood pressure well controlled. We will continue to hold YVAN inhibitor and diuretics. Defer resumption to follow-up with PCP. Would benefit from repeat labs in a week. Hypertension Routine blood pressure monitoring. Remained well controlled during hospitalization. Initially hypotensive on presentation. See med list for full details but holding current regimen until follow-up with PCP secondary to BEST and hypotension. Hypothyroidism Levothyroxine continued at home dose of 137 mcg daily. BMI 52 Complicates all aspects of care Stable for discharge home. Close follow-up with PCP and repeat labs within a week Exam Data for Last 24 hours Vital signs and Labs for Last 24 Hours: Temp Pulse Resp BP Pulse Ox FiO2 98.6 F 78 17 117/50 L 97 100 04/20/22 07:41 04/20/22 07:41 04/20/22 07:41 04/20/22 07:41 04/20/22 07:41 04/19/22 20:00 Laboratory Results - last 24 hr 04/18/22 15:50: VBG pH 7.27 L, VBG pCO2 45.5, VBG pO2 35.4, VBG HCO3 20.3 L, VBG Total CO2 21.7 L, VBG O2 Saturation 63.0, VBG Base Excess -6.7 L 04/19/22 12:25: Urine Sodium 37 04/20/22 06:05: WBC 7.8 D, RBC 3.45 L, Hgb 10.3 L, Hct 31.6 L, MCV 91.6, MCH 29.9, MCHC 32.7, RDW 16.3, Plt Count 397, MPV 7.5, Neut % (Auto) 63.8, Lymph % (Auto) 25.0, [place] % (Auto) 7.4, Eos % (Auto) 3.1, Baso % (Auto) 0.7, Neut # (Auto) 5.0, Lymph # (Auto) 2.0, [place] # (Auto) 0.6, Eos # (Auto) 0.2, Baso # (Auto) 0.1 04/20/22 06:05: Sodium 135 L, Potassium 4.1, Chloride 104, Carbon Dioxide 29, Anion Gap 6.1, BUN 28 H D, Creatinine 1.70 H D, Estimated Creat Clear 39, Estimated GFR 31 L, Est GFR ( Amer) 37 L D, Glucose 108 H, Calcium 8.0 L I & O for La
--- NOTE | 2022-04-20 12:51 | HMH.PHAINT1 ---
Pharmacy Intervention Comments: DISCHARGE MEDICATION COUNSELING PROVIDED. DISCUSSED HOLDING THE LISINOPRIL-HCTZ AND SPIRONOLACTONE UNTIL PATIENT FOLLOWS UP WITH HER PRIMARY CARE DOCTOR AND TO STOP THE MELOXICAM, DICLOFENAC, AND LEVOFLOXACIN. PATIENT VERBALIZED NO QUESTIONS AT THIS TIME.
[2022-04-21 10:16] LABS: Osmolality, Urine 318 mOsmol/kg (.)
--- NOTE | 2022-04-21 14:24 | CARE MANAGER ---
spoke with patient for post-discharge phone interview, no issues noted.
== END 2022-04-20 13:03 | disposition home or self-care (01) | DRG 683 ==
LOC: ER 15:12 → 2ND 16:28
PROVIDERS: Admitting Provider Family Medicine; Emergency Provider Emergency Medicine; PCP Nurse Practitioner Family; Visit Provider Family Medicine
DX: N17.9 Acute kidney failure, unspecified (principal); Z68.43 Body mass index [BMI] 50.0-59.9, adult; I95.9 Hypotension, unspecified; G89.29 Other chronic pain; I50.9 Heart failure, unspecified; K21.9 Gastro-esophageal reflux disease without esophagitis; E66.01 Morbid (severe) obesity due to excess calories; E78.5 Hyperlipidemia, unspecified; Z87.891 Personal history of nicotine dependence; I11.0 Hypertensive heart disease with heart failure; E03.9 Hypothyroidism, unspecified
CPT/HCPCS: 36415; 71045; 73630; 76770; 80048; 80053; 81001; 82043; 82550; 82570; 82803; 83605; 83690; 83735; 83935; 84100; 84300; 84443; 84484; 84550; 85007; 85025; 85651; 86140; 87040; 87081; 93005; 99291; C9803; U0003; U0005

== ENCOUNTER 2022-04-22 09:06 | Emergency (ER) | payer MEDICARE, MEDICAID, SELFPAY ==
[2022-04-22] VITALS (7 sets, daily range): BP systolic 123–155; BP diastolic 68–97; PULSE 65–81; RESP 16–19; TEMP 36.4; O2SAT 96–99; BMI 54.3
--- NOTE | 2022-04-22 09:30 | PC.NURSE ---
rounded on pt states she was cold gave her a warm blanket, dad @ bedside
[2022-04-22 09:33] LABS: Basophils # 0.1 K/mm3 (0-0.2); Basophils % 0.8 % (0.1-2.0); Eosinophils # 0.2 K/mm3 (0.0-0.4); Eosinophils % 2.5 % (0.1-12.0); Hematocrit 36.9 % (37.0-47.0); Hemoglobin 12.1 g/dL (12.2-16.2); Lymphocytes # 1.7 K/mm3 (0.7-4.5); Lymphocytes % 19.8 % (10-50); Mean Corpuscular HGB Conc 32.9 g/dL (31.8-35.4); Mean Corpuscular Hemoglobin 29.6 pg (27.0-31.2); Mean Corpuscular Volume 90.1 fl (81-99); Mean Platelet Volume 7.5 fl (7.4-10.4); Monocytes # 0.4 K/mm3 (0.1-1.0); Monocytes % 4.5 % (1.7-9.3); Neutrophils % 72.4 % (37.0-80.0); Platelet Count 503 K/mm3 (142-424); Red Cell Distribution Width 16.2 % (11.5-17.5); White Blood Count 8.3 K/mm3 (4.8-10.8)
--- NOTE | 2022-04-22 09:36 | HMH.EDGENADL ---
Discharge Plan Disposition Patient Disposition: Home, Self-Care Condition: Good Chief Complaint: Weakness Prescriptions Prescriptions: No Action multivitamin Tablet 1 tab PO DAILY ascorbate calcium (vitamin C) 500 mg tablet 500 mg PO DAILY zinc acetate 25 mg (zinc) capsule 25 mg PO DAILY melatonin 10 mg capsule 10 mg PO HSP PRN (Reason: Sleep) atorvastatin 40 mg tablet 40 mg PO DAILY Qty: 90 3RF dicyclomine 10 mg capsule 20 mg PO TID latanoprost 0.005 % drops 1 drp Eye-Both HS levothyroxine 137 MCG tablet 137 mcg PO DAILY hydromorphone (PF) 1 MG/ML syringe 0.15 mg IT CONT PRN (Reason: chronic pain) Rx Instructions: medication administered via intrathecal pain pump. total volume of pump is 20ml. topiramate 25 mg tablet 25 mg PO HS Label Comments: TAKE 1 TABLET BY MOUTH ONCE DAILY AT BEDTIME dorzolamide 2 % drops 1 drp Eye-Both AM Label Comments: INSTILL 1 DROP INTO EACH EYE IN THE MORNING montelukast 10 MG tablet 10 mg PO PM aspirin 81 MG tablet,delayed release (DR/EC) 81 mg PO DAILY ropinirole 1 mg tablet 1 mg PO HS Label Comments: TAKE ONE TABLET BY MOUTH 1-3 HOURS BEFORE BEDTIME NIGHTLY gabapentin 300 mg capsule 300 mg PO TID Qty: 90 0RF fluticasone propionate [Flovent HFA] 110 mcg/actuation HFA aerosol inhaler 2 puff INHALATION BID brimonidine 0.2 % drops 1 drp Eye-Both BID Label Comments: INSTILL 1 DROP INTO EACH EYE TWICE DAILY DIRECTED estradiol 2 mg tablet 2 mg PO DAILY mupirocin 2 % ointment 1 applic topical BID trazodone 50 mg tablet 50 mg PO DAILYP PRN (Reason: Sleep) Label Comments: TAKE 1 TABLET BY MOUTH ONCE DAILY AT BEDTIME NEEDED bupropion HCl 300 mg tablet extended release 24 hr 300 mg PO DAILY Label Comments: TAKE 1 TABLET BY MOUTH ONCE DAILY IN THE MORNING furosemide 80 mg tablet 80 mg PO DAILY Referrals Follow up/Referrals: Gtia Muhammad APRN [Primary Care Provider] - See instructions Activity Restrictions/Add. Instructions Additional Instructions/Restrictions: Rest and drink plenty of fluids. You may take the Zofran you have at home for nausea. Collect a diarrhea sample using the provided supplies and return it along with the order form to ER registration at [facility] for testing. Obtain the results of this test from your primary care provider the next day. Follow-up with primary care provider, call to reschedule your appointment. Clinical Impressions Clinical Impression: Weakness, Diarrhea, Nausea Instructions Patient Instructions: DI for Diarrhea and Traveler's Diarrhea -- Adult, DI for Nausea -- Adult Discharge ED Provider: Gareth Biggs General Adult HPI General Chief complaint: Weakness Stated complaint: Weakness, fatigue, nausea, no appetite Time Seen by Provider: 04/22/22 09:30 Mode of Arrival: Ambulatory Source of Information: Patient Limitations: No Limitations Description of Symptoms (Recalled from ER Triage Doc. by RN): pt comes in today for weakness, fatigue, nausea, no appetite. pt was discharged form hospital on 04/20/22. pt reports feeling well when she left the hospital but last night she began to have symptoms. pt has not taken daily medications today or yesterday. pt was to have followup with her pcp today but she called them and they advised her to come up to er instead of coming to office. History of Present Illness HPI narrative: Patient was seen by me in this emergency department on 04/18/2022 and admitted for acute kidney injury. She went home on 04/20/2022. Says that she was feeling better at that time. However, since going home she says she has relapsed to the same symptoms. She has been fatigued. She says she did not get out of bed all day yesterday. Decreased appetite, has eaten very little. Decreased urinary output. Feels chilled and has generalized body
--- NOTE | 2022-04-22 09:42 | XR_ITS ---
FINAL REPORT CLINICAL HISTORY: weakness, cp COMPARISON: 04/18/2022 FINDINGS: A single portable view of the chest was obtained. The heart size and pulmonary vascularity are within normal limits. The mediastinum is within normal limits. No acute pulmonary abnormality is identified. The bony thorax is intact. IMPRESSION: No active cardiopulmonary disease. Reviewed, Interpreted and Dictated by Igor Nam III, MD Transcribed by Tamara Peace Authenticated and [facility]
--- NOTE | 2022-04-22 09:43 | PC.NURSE ---
Rounded on patient; patient given a warm blanket for comfort, call light within reach. family at BS, no other needs at this time.
[2022-04-22 09:47] LABS: Alanine Aminotransferase 24 U/L (12-78); Albumin Level 3.9 g/dl (3.5-5.0); Alkaline Phosphatase 101 U/L (38-126); Anion Gap 9.9 mEq/L (5-15); Aspartate Amino Transferase 28 U/L (14-36); Bilirubin,Total 0.5 mg/dl (0.2-1.3); Blood Urea Nitrogen 12 mg/dl (7-17); Calcium 8.9 mg/dl (8.4-10.2); Carbon Dioxide 23 mmol/L (22.0-30.0); Chloride 105 mmol/L (98-107); Creatinine Clearance Estimated 57 mL/min (50-200); Estimated Glomerular Filt Rate 46 ml/min (>60); GFR (African American) 56 ML/MIN (>60); Globulin 3.9 g/dL (1.3-3.2); Glucose 99 mg/dl (74-100); Potassium 3.9 mmoL/L (3.5-5.1); Sodium 134 mmol/L (136-145); Total Protein,Serum 7.8 g/dl (6.3-8.2)
--- NOTE | 2022-04-22 09:52 | ECG_ITS ---
APPROVED REPORT Exam: Resting ECG HR:69 bpm ECG Measurements Heart Rate 69 AXES GA 167 P 58 QRSd 105 QRS -44 QT 351 T 46 QTc 370 Conclusion SINUS RHYTHM LEFT AXIS DEVIATION [QRS AXIS < -30] LOW QRS VOLTAGE IN PRECORDIAL LEADS with late r wave progression - previously noted ABNORMAL ECG UNCONFIRMED REPORT Electronically signed by : Dandy Del Toro MD 04/23/2022 08:12:52
--- NOTE | 2022-04-22 09:53 | PC.NURSE ---
radiology at BS for portable chest xray
[2022-04-22 09:56] LABS: Coronavirus 19, PCR Not Detected (NotDetected); Influenza A, PCR Not Detected (NotDetected); Influenza B, PCR Not Detected (NotDetected)
[2022-04-22 10:09] LABS: NT Pro Brain Natriuretic Pep. 186 pg/mL (0-125)
[2022-04-22 10:18] LABS: VBG Base Excess -1.8 mmol/L (-2.4-2.3); VBG HCO3 23.5 mmol/L (23-30); VBG Oxygen Saturation 79.1 % (50-70); VBG PCO2 41.5 mmol/L (35-51); VBG PH 7.37 mmol/L (7.31-7.41); VBG Total CO2 24.8 mmol/L (23-27)
[2022-04-22 10:34] LABS: Lactic Acid 1.4 mmol/L (0.7-2.1)
--- NOTE | 2022-04-22 10:49 | PC.NURSE ---
rounded on pt at this time, pt resting in bed with eyes closed, informed pt that MD ordered for a urine sample.
--- NOTE | 2022-04-22 10:52 | PC.NURSE ---
pt resting dad @ bs
--- NOTE | 2022-04-22 10:54 | PC.NURSE ---
Addendum entered by Cristina Hutchinson RN 04/22/22 10:54: with walker Original Note: pt ambulating to bathroom for urine sample
--- NOTE | 2022-04-22 10:55 | PC.NURSE ---
pt ambulated back to room with walker, tolerated well
[2022-04-22 10:57] LABS: Magnesium 1.7 mg/dl (1.6-2.3)
[2022-04-22 11:02] LABS: Microscopic, Urine URINE MICROSCOPIC (MICROSCOPIC)
[2022-04-22 11:10] LABS: Appearance,Urine CLEAR (Clear); Blood, Urine 1+ (Negative); Color,Urine YELLOW (Yellow); Glucose,Urine (UA) Negative (Negative); Ketones,Urine TRACE (Negative); Leukocyte Esterase,Urine Negative (Negative); Nitrate,Urine Negative (Negative); Protein,Urine Negative (Negative); Urobilinogen,Urine 0.2 EU/dl (0.2)
[2022-04-22 11:16] LABS: Bilirubin,Urine Negative (Negative)
[2022-04-22 11:22] LABS: Bacteria,Urine Trace /lpf; RBC,Urine Occasional #/hpf (0-3); Squamous Epithelial Cell,Urine Occasional #/hpf (0-5)
--- NOTE | 2022-04-22 11:23 | PC.NURSE ---
pt updated that diarrhea panel is needed if she can provide one,
--- NOTE | 2022-04-22 11:25 | PC.NURSE ---
checked on pt no complaints at this time, dad @ bs
[2022-04-22 11:26] LABS: Troponin I < 0.01 ng/ml (0.00-0.034)
== END 2022-04-22 11:45 | disposition home or self-care (01) ==
PROVIDERS: Emergency Provider Emergency Medicine; PCP Nurse Practitioner Family
DX: R53.1 Weakness (principal); R11.0 Nausea; R19.7 Diarrhea, unspecified; R53.83 Other fatigue; J45.909 Unspecified asthma, uncomplicated; I25.10 Atherosclerotic heart disease of native coronary artery without angina pectoris; I50.9 Heart failure, unspecified; Z87.891 Personal history of nicotine dependence; M54.9 Dorsalgia, unspecified; K21.9 Gastro-esophageal reflux disease without esophagitis; I11.0 Hypertensive heart disease with heart failure; E78.5 Hyperlipidemia, unspecified; G43.909 Migraine, unspecified, not intractable, without status migrainosus; K58.9 Irritable bowel syndrome, unspecified; Z90.49 Acquired absence of other specified parts of digestive tract; Z90.710 Acquired absence of both cervix and uterus; Z80.0 Family history of malignant neoplasm of digestive organs; Z80.3 Family history of malignant neoplasm of breast; Z82.3 Family history of stroke; Z82.49 Family history of ischemic heart disease and other diseases of the circulatory system; Z82.5 Family history of asthma and other chronic lower respiratory diseases; Z83.3 Family history of diabetes mellitus; Z20.822 Contact with and (suspected) exposure to COVID-19
CPT/HCPCS: 71045; 80053; 81001; 82803; 83605; 83735; 83880; 84484; 85025; 87040; 93005; 99285; C9803; U0003; U0005

== ENCOUNTER 2022-04-27 08:24 | Day surgery (SDC) | payer MEDICARE, MEDICAID, SELFPAY ==
[2022-04-27 09:27] LABS: Chloride 102 mmol/L (98-107); Potassium 3.6 mmoL/L (3.5-5.1); Sodium 137 mmol/L (136-145)
[2022-04-27 09:30] LABS: Alanine Aminotransferase 27 U/L (12-78); Albumin Level 4.3 g/dl (3.5-5.0); Albumin/Globulin Ratio 1.1 (1.1-1.8); Alkaline Phosphatase 113 U/L (38-126); Anion Gap 12.6 mEq/L (5-15); Aspartate Amino Transferase 25 U/L (14-36); Bilirubin,Total 0.4 mg/dl (0.2-1.3); Blood Urea Nitrogen 18 mg/dl (7-17); Carbon Dioxide 26 mmol/L (22.0-30.0); Estimated Glomerular Filt Rate 42 ml/min (>60); GFR (African American) 51 ML/MIN (>60); Globulin 3.9 g/dL (1.3-3.2); Total Protein,Serum 8.2 g/dl (6.3-8.2)
[2022-04-27 09:31] LABS: Calcium 9.1 mg/dl (8.4-10.2); Glucose 82 mg/dl (74-100)
[2022-04-27 09:46] VITALS: BP 144/84; PULSE 87; RESP 18; TEMP 36.3; O2SAT 99; BMI 50.5
[2022-04-27 09:59] VITALS: BP 178/81; PULSE 91; RESP 18; O2SAT 98
[2022-04-27 10:00] VITALS: BP 178/81; PULSE 91; RESP 18; O2SAT 98
[2022-04-27 10:14] VITALS: BP 123/90; PULSE 78; RESP 18; O2SAT 100
--- NOTE | 2022-04-27 10:14 | EXP.PAIN.PRO ---
Procedure Date: 04/27/22 Time: 10:00 Anesthesiologist:: Pee Lambert CRNA Complications:: None Pre-procedure Diagnosis:: Degenerative disc disease lumbar spine multilevels. Lumbar radiculopathy. Lumbar postlaminectomy syndrome. Post-procedure Diagnosis:: Same. Indications for Procedure:: Patient comes our injection clinic today for intrathecal pain pump interrogation and refill. She is currently being managed with Dilaudid 2 mg/mL at 1.54 mg/day. Procedure Details:: Very pleasant 56-year-old female that comes our clinic today for intrathecal pain pump refill and interrogation. Patient was placed in the prone position. Fluoroscopy guidance was used. Pump was interrogated. The pump was then accessed with a 22-gauge 2 and half inch needle with ease. 3 mL of solution was withdrawn and discarded appropriately. The pump was then filled with 20 cc incrementally of Dilaudid 10 mg/mL. Patient is not asking for any changes in the rate today. She is doing very well with her current settings. She does not report any side effects. Her daily rate is 1.54 mg/day. Plan and Disposition:: Patient was discharged without incident
== END 2022-04-27 10:14 | disposition home or self-care (01) ==
LOC: SC.PAINP 08:25
PROVIDERS: PCP Nurse Practitioner Family; Visit Provider Nurse Anesthetist, Certified Registered
DX: Z45.1 Encounter for adjustment and management of infusion pump (principal); M51.16 Intervertebral disc disorders with radiculopathy, lumbar region; M96.1 Postlaminectomy syndrome, not elsewhere classified
CPT/HCPCS: 36415; 80053; 95991

== ENCOUNTER → 2022-05-12 09:25 | Outpatient (CLI) | payer MEDICARE, MEDICAID, SELFPAY | LOC: RT 09:27 | PROVIDERS: PCP Nurse Practitioner Family; Visit Provider Nurse Practitioner Family | DX: R09.89 Other specified symptoms and signs involving the circulatory and respiratory systems (principal) | CPT/HCPCS: 93923 ==

== ENCOUNTER → 2022-05-19 13:49 | Outpatient (POV) | payer MEDICARE, MEDICAID, SELFPAY ==
--- NOTE | 2022-05-19 14:46 | EXP.PAIN.PRO ---
Procedure Date: 05/19/22 Time: 14:46 Anesthesiologist:: Merly Ruiz APRN Complications:: None Pre-procedure Diagnosis:: Degenerative disc disease of lumbar spine with lumbar radiculopathy symptoms, lumbar postlaminectomy syndrome Post-procedure Diagnosis:: Same Indications for Procedure:: Patient is a pleasant 56-year-old female who presents today for intrathecal pain pump reprogramming adjustment. The patient is being treated for degenerative disc disease of lumbar spine with lumbar radiculopathy symptoms, lumbar postlaminectomy syndrome, left shoulder pain/osteoarthritis. Patient is currently being managed with intrathecal Dilaudid 10 mg/mL with a daily dose of 1.54 mg/day. Patient denies any side effects from this medication. Patient rates pain a 7 out of 10. Patient denies any new trauma or injury. Patient denies any change location or type of pain she experiences. She does state that her left shoulder is bothering her more frequently and that she is wanting to repeat her prior injection. Patient is also prescribed gabapentin 300 mg 3 times a day. Patient denies any side effects from this medication. She is requesting a refill at today's visit. Drug screen is appropriate. [facility] [id number] has been reviewed and is appropriate. Physical exam General: Alert and oriented x3, no acute distress, pleasant and cooperative Lungs: Respirations even and unlabored, symmetrical chest expansion Eyes: PERRL Musculoskeletal: Flexion and extension of left shoulder, lumbar [spine] somewhat guarded secondary to pain, [antalgic gait noted] Neurological: Speech clear, no gross sensory deficit Procedure Details:: Informed consent was obtained and the risk and benefits of the procedure were explained to the patient. Patient was taken to the procedure room where noninvasive monitoring was placed including noninvasive blood pressure cuff and pulse oximeter. Patient's pump was interrogated and was reprogrammed to Dilaudid 1.694 mg/day. The patient tolerated the procedure well with no complications. Plan and Disposition:: Patient is having worsening pain in her left shoulder with limited range of motion. I have discussed with the patient regarding a left shoulder intra-articular injection. Risk and benefits were discussed with the patient and she would like to proceed forward with this plan of care. I will refill her gabapentin 300 mg 3 times a day and provide a 1 month supply of this medication. We will schedule the patient for a left shoulder intra-articular injection. Patient has been instructed to contact the clinic with any concerns before the next appointment. Dr. Canchola has reviewed this note and agrees with this plan of care. This note was dictated using voice recognition software and make contain errors or omissions. -- It Is medically necessary for this patient to continue to have their intrathecal pump refilled at regular intervals. This patient had an intrathecal pain pump implanted after meeting criteria of chronic intractable pain for greater than 3 months and failing conservative treatments. Patient has committed and been compliant to the treatment plan and all planned follow up care. Since implantation of the intrathecal pain pump, the patient has had decreased pain and been more functional. Oral medications have been reduced including intake of oral opioids. Patient continues to do well with intrathecal therapy with decrease in pain symptoms and increase in functional status. Stopping intrathecal medications can lead to life threatening withdrawal, seizures, cardiac arrest, severe pain, and possible . Pumps that are not refilled at regular intervals can be damages and cause and need for replacement. We continually titrate dose and concentration to optimize pain relief and function. We are limited in concentration for certain drugs to safely deliver medications through the pump and stay within the recommendations from the [facility]
[2022-05-19 15:20] VITALS: BP 167/92; PULSE 82; RESP 18; O2SAT 98; BMI 51.3
== END | disposition home or self-care (01) ==
PROVIDERS: PCP Nurse Practitioner Family; Visit Provider Nurse Practitioner Family
DX: Z45.1 Encounter for adjustment and management of infusion pump (principal); M51.16 Intervertebral disc disorders with radiculopathy, lumbar region; M96.1 Postlaminectomy syndrome, not elsewhere classified
CPT/HCPCS: 62368; 99213; G0463

== ENCOUNTER 2022-05-25 14:03 | Day surgery (SDC) | payer MEDICARE, MEDICAID, SELFPAY ==
[2022-05-25 14:29] VITALS: BP 131/75; PULSE 85; RESP 18; TEMP 36.5; O2SAT 98; BMI 51.2
[2022-05-25 14:35] VITALS: BP 162/75; PULSE 77; RESP 18; O2SAT 97
[2022-05-25 14:36] VITALS: BP 162/75; PULSE 77; RESP 18; O2SAT 97
[2022-05-25 14:40] VITALS: BP 147/89; PULSE 82; RESP 18; O2SAT 98
--- NOTE | 2022-05-25 14:40 | P.PCN_ITS ---
Procedure Date: 05/25/22 Time: 14:30 Anesthesiologist:: Pee Lambert CRNA Complications:: None Pre-procedure Diagnosis:: Osteoarthritis left shoulder Post-procedure Diagnosis:: Same. Indications for Procedure:: Pleasant 56-year-old female comes our clinic today for left intra-articular raina ulder injection. Patient describes her left shoulder pain as constant, dull, aching. She has difficulty with range of motion. She has good strength in her left arm. We also manage the patient with intrathecal Dilaudid 10 mg/mL with a daily dose of 1.54 mg/day. She seems to be doing very well in that regard. Procedure Details:: Procedure Details: Right shoulder intra-articular injection Informed consent was obtained risk and benefits of the procedure were explained to the patient. Patient was taken to the procedure room. The right shoulder was prepped using ChloraPrep. A 25-gauge needle was used first anteriorly, laterally, and then posteriorly to inject 10 mL bupivacaine 0.25% and Depo- Medrol 40 mg. Patient tolerated procedure well with no complications. Plan and Disposition:: Patient was discharged without incident.
== END 2022-05-25 14:40 | disposition home or self-care (01) ==
PROVIDERS: PCP Nurse Practitioner Family; Visit Provider Nurse Anesthetist, Certified Registered
DX: M19.012 Primary osteoarthritis, left shoulder (principal); M25.512 Pain in left shoulder; Z97.8 Presence of other specified devices
CPT/HCPCS: 20610; J1040

== ENCOUNTER → 2022-06-10 14:05 | Outpatient (POV) | payer MEDICARE, MEDICAID, SELFPAY ==
[2022-06-10 14:25] VITALS: BP 140/59; PULSE 76; RESP 18; TEMP 36.8; O2SAT 99; BMI 50.2
--- NOTE | 2022-06-10 14:33 | EXP.PAIN.SOA ---
[facility] Pain Management SOAP Note Subjective:: Patient is a pleasant 56-year-old female who presents today for follow-up of left intra-articular shoulder injection on 05/25/2022. We are currently treating the patient for degenerative disc disease of lumbar spine with lumbar radiculopathy symptoms, lumbar postlaminectomy syndrome, left shoulder pain/osteoarthritis. Today she rates her pain a 9 out of 10. She states she had at least 80% improvement for her left shoulder following this injection and feels like it is still continuing to provide relief. She states her pain today is all in her right shoulder. She does believe this is related to arthritis and describes it as an aching, throbbing sensation that is worse with increased activity or range of motion. Patient does state it interferes with her ability to perform activities of daily living such as cooking and cleaning. She does state that following these injections she has been hospitalized for 3 to 4 days due to acute kidney injury related to a antibiotic. She states she had a corn that ended up becoming infected and she was prescribed the antibiotic which in turn led to the initial episode. She does state that officially today she is back to normal levels with her kidney and is not having any other issues. Patient is currently being managed with intrathecal Dilaudid 10 mg/mL with a daily dose of 1.54 mg/day. Patient denies any side effects from this medication. Patient is also prescribed gabapentin 300 mg 3 times a day.? Patient denies any side effects from this medication.? She does not need a refill at this time. [facility] [id number] has been reviewed and is appropriate.? ? Review of Systems: General: No recent weight changes, no fever, no sleep disturbances Respiratory: No cough, no shortness of air, no recurring pulmonary infections Cardiovascular/peripheral vascular: No chest pain, no palpitations, no edema, no shortness of breath Gastrointestinal: No new onset incontinence, normal bowel movements reported Genitourinary: No new onset incontinence Musculoskeletal: Right shoulder pain Psychiatric: [Normal mood/affect] Neurological: [Denies weakness in extremities], [denies balance issues] Objective:: Physical Exam: General: Alert and oriented x3, no acute distress, pleasant and cooperative Lungs: Respirations even and unlabored, symmetrical chest expansion Eyes: PERRL Musculoskeletal: Flexion and extension of right shoulder somewhat guarded secondary to pain, [antalgic gait noted] Neurological: Speech clear, no gross sensory deficit Assessment:: Degenerative disc disease of lumbar spine with lumbar radiculopathy symptoms, lumbar postlaminectomy syndrome, bilateral shoulder pain/osteoarthritis Plan:: Patient is experiencing significant pain in her right shoulder with limited range of motion. I have discussed with the patient that she may benefit from right shoulder intra-articular injection. Risk and benefits were discussed with the patient and she would like to proceed forward with this plan of care. We will schedule her for a right shoulder intra-articular injection. Patient has been instructed to contact the clinic with any concerns before the next appointment. Dr. Canchola has reviewed this note and agrees with this plan of care. This note was dictated using voice recognition software and make contain errors or omissions. [facility] Disclaimer: The information contained in this section may have been updated after the patient was seen, as this information can be updated by other users. Medical History Asthma CAD (coronary artery disease) Congestive heart failure Ex-smoker Family history of lung cancer History of 2019 novel coronavirus disease (COVID-19) History of back pain History of gastroesophageal reflux (GERD) HTN (hypertension) Hyperlipidemia IBS (irritable bowel syndrome) Lung nodule Migraine Morbid obesity BRAULIO (obstructive sleep apnea) Stopped smoking with greater than 30 pack year h
== END ==
PROVIDERS: PCP Nurse Practitioner Family; Visit Provider Nurse Practitioner Family
DX: M51.16 Intervertebral disc disorders with radiculopathy, lumbar region (principal); M96.1 Postlaminectomy syndrome, not elsewhere classified; M19.011 Primary osteoarthritis, right shoulder; M19.012 Primary osteoarthritis, left shoulder; M25.511 Pain in right shoulder; M25.512 Pain in left shoulder
CPT/HCPCS: 99212; G0463

== ENCOUNTER 2022-06-22 09:16 | Day surgery (SDC) | payer MEDICARE, MEDICAID, SELFPAY ==
[2022-06-22 09:20] VITALS: BP 154/103; PULSE 78; RESP 18; TEMP 36.6; O2SAT 97; BMI 50.8
[2022-06-22 09:37] VITALS: BP 131/58; PULSE 69; RESP 18; O2SAT 98
--- NOTE | 2022-06-22 09:39 | P.PCN_ITS ---
Procedure Date: 06/22/22 Time: 09:30 Anesthesiologist:: Pee Lambert CRNA Complications:: None Pre-procedure Diagnosis:: Osteoarthritis right shoulder. Chronic right shoulder pain Post-procedure Diagnosis:: Same. Indications for Procedure:: Very pleasant 56-year-old female comes our clinic today with right shoulder pain. She has good strength in her right arm. However, has limited range of motion due to shoulder pain. She presents for right intra-articular shoulder injection. Procedure Details:: Procedure Details: Right shoulder intra-articular injection Informed consent was obtained risk and benefits of the procedure were explained to the patient. Patient was taken to the procedure room. The right shoulder was prepped using ChloraPrep. A 25-gauge needle was used first anteriorly, laterally, and then posteriorly to inject 10 mL bupivacaine 0.25% and Depo- Medrol 40 mg. Patient tolerated procedure well with no complications. Plan and Disposition:: Patient was discharged without incident.
== END 2022-06-22 09:37 | disposition home or self-care (01) ==
LOC: SC.PAINP 09:16
PROVIDERS: PCP Nurse Practitioner Family; Visit Provider Nurse Anesthetist, Certified Registered
DX: M19.011 Primary osteoarthritis, right shoulder (principal); M25.511 Pain in right shoulder; G89.29 Other chronic pain
CPT/HCPCS: 20610; J1040

== ENCOUNTER → 2022-07-07 09:10 | Outpatient (POV) | payer MEDICARE, MEDICAID, SELFPAY ==
[2022-07-07 09:59] VITALS: BP 103/70; PULSE 68; RESP 18; O2SAT 97; BMI 50.8
--- NOTE | 2022-07-07 10:20 | EXP.PAIN.SOA ---
[facility] Pain Management SOAP Note Subjective:: Patient is a pleasant 56-year-old female who presents today for follow-up of right shoulder intra-articular injection on 06/22/2022. We are currently treating the patient for degenerative disc disease of lumbar spine with lumbar radiculopathy symptoms, postlaminectomy syndrome, left shoulder pain/osteoarthritis. Today she rates her pain a 10 out of 10 however she states this is not related to her shoulder. She states she has had at least 90 to 100% relief at this joint following her injection. Today she says her pain is at her left buttocks. Patient denies any new trauma or injury. She states her pain is a constant ache, sharp sensation that is even tender to touch. Patient does state it interferes with her ability perform activities of daily living such as cooking and cleaning. Patient does have a intrathecal pain pump that is managed with Dilaudid 10 mg/mL with a daily dose of 1.694 mg/day. Patient denies any side effects from this medication. She states this medication does help manage her pain symptoms. She is also prescribed gabapentin 300 mg 3 times a day however she stated that she feels like she is experiencing more drowsiness and edema in her bilateral lower extremities related to this medication. She does state that she does not take this on a regular basis however that she has also talked to her primary care doctor related to her side effect she is experiencing. Her Andres is [id number]. Its been reviewed and appropriate. Review of Systems: General: No recent weight changes, no fever, no sleep disturbances Respiratory: No cough, no shortness of air, no recurring pulmonary infections Cardiovascular/peripheral vascular: No chest pain, no palpitations, no edema, no shortness of breath Gastrointestinal: No new onset incontinence, normal bowel movements reported Genitourinary: No new onset incontinence Musculoskeletal: Left buttocks pain Psychiatric: [Normal mood/affect] Neurological: [Denies weakness in extremities], [denies balance issues] Objective:: BarPhysical Exam: General: Alert and oriented x3, no acute distress, pleasant and cooperative Lungs: Respirations even and unlabored, symmetrical chest expansion Eyes: PERRL Musculoskeletal: Flexion and extension of lumbar [spine] somewhat guarded secondary to pain, [antalgic gait noted] extreme point tenderness noted at left piriformis muscle Neurological: Speech clear, no gross sensory deficit Assessment:: Degenerative disc disease of lumbar spine with lumbar radiculopathy symptoms, postlaminectomy syndrome, left shoulder pain/osteoarthritis, left piriformis syndrome Plan:: Patient is experiencing significant pain in her left buttocks with point tenderness noted at her left piriformis muscle. I have discussed with the patient that she may benefit from a left piriformis injection. Risk and benefits were discussed with the patient and she would like to proceed forward with this plan of care. I have also discussed with the patient that we can change her gabapentin to pregabalin 150 mg 3 times daily and see if it does help with her current side effects she is experiencing on the gabapentin. We will provide a 1 month supply of this medication. Patient will be scheduled for a left piriformis injection. Patient has been instructed to contact the clinic with any concerns before the next appointment. Dr. Canchola has reviewed this note and agrees with this plan of care. This note was dictated using voice recognition software and make contain errors or omissions. -- It Is medically necessary for this patient to continue to have their intrathecal pump refilled at regular intervals. This patient had an intrathecal pain pump implanted after meeting criteria of chronic intractable pain for greater than 3 months and failing conservative treatments. Patient has committed and been compliant to the treatment plan and all planned follow up care. Since implantation of the intrat
== END | disposition home or self-care (01) ==
PROVIDERS: PCP Nurse Practitioner Family; Visit Provider Nurse Practitioner Family
DX: M51.16 Intervertebral disc disorders with radiculopathy, lumbar region (principal); M96.1 Postlaminectomy syndrome, not elsewhere classified; M19.012 Primary osteoarthritis, left shoulder; M25.512 Pain in left shoulder; G57.02 Lesion of sciatic nerve, left lower limb
CPT/HCPCS: 99212; G0463

== ENCOUNTER 2022-07-20 08:29 | Day surgery (SDC) | payer MEDICARE, MEDICAID, SELFPAY ==
[2022-07-20 08:43] VITALS: BP 148/82; PULSE 76; RESP 18; TEMP 36.7; O2SAT 97; BMI 51.0
[2022-07-20 09:09] VITALS: BP 143/94; PULSE 72; RESP 18; O2SAT 97
[2022-07-20 09:11] VITALS: BP 143/94; PULSE 72; RESP 18; O2SAT 98
--- NOTE | 2022-07-20 09:17 | EXP.PAIN.PRO ---
Procedure Date: 07/20/22 Time: 09:10 Anesthesiologist:: Pee Lambert CRNA Complications:: None Pre-procedure Diagnosis:: Degenerative disc disease lumbar spine multilevels. Lumbar radiculopathy. Lumbar postlaminectomy syndrome. Chronic low back pain. Left piriformis syndrome. Post-procedure Diagnosis:: Same. Indications for Procedure:: Patient is a very pleasant 56-year-old female that comes to our clinic today for intrathecal pain pump refill and interrogation. Also, left piriformis injection. Patient describes low back pain as constant, dull, aching. She also complains of left posterior hip pain. Patient currently being managed with Dilaudid 10 mg/mL at 1.694 mg/day. Patient does not complain of any side effects or complications with the current intrathecal pain pump management. Procedure Details:: Details of the procedure explained to the patient. The patient taken the procedure room placed in the prone position on the fluoroscopy table. The area over the pump was cleansed using chlorhexidine as a cleansing solution. The pump was interrogated. The pump was then accessed with ease using fluoroscopy guidance and a a 22-gauge 2 inch needle. 5.3 mL of solution was withdrawn and discarded appropriately. The pump was then filled incrementally with 20 cc of Dilaudid 10 mg/mL. Details of the procedure explained to the patient. Patient remained prone on the fluoroscopy table. Using fluoroscopy guidance a 3 and half inch 22-gauge needle was used to access the left piriformis muscle. Needle position was confirmed using contrast dye and a lateral spread. At this time after negative aspiration 2 cc of 1% lidocaine +2 cc of 0.25% Marcaine and 20 mg of Depo-Medrol was injected. Patient tolerated the procedure without difficulty. There are no complications Plan and Disposition:: Patient was discharged without incident.
[2022-07-20 09:24] VITALS: BP 128/74; PULSE 72; RESP 18; O2SAT 96
== END 2022-07-20 09:24 | disposition home or self-care (01) ==
PROVIDERS: PCP Nurse Practitioner Family; Visit Provider Nurse Anesthetist, Certified Registered
DX: Z45.1 Encounter for adjustment and management of infusion pump (principal); G57.02 Lesion of sciatic nerve, left lower limb; M51.16 Intervertebral disc disorders with radiculopathy, lumbar region; M96.1 Postlaminectomy syndrome, not elsewhere classified; G89.29 Other chronic pain; M25.552 Pain in left hip; M79.18 Myalgia, other site
CPT/HCPCS: 20552; 95991; J1040; Q9966

== ENCOUNTER 2022-07-21 09:00 | Outpatient (RCR) | payer MEDICARE, MEDICAID, SELFPAY | END 2022-07-21 09:05 | disposition home or self-care (01) | LOC: OT 09:00 | PROVIDERS: PCP Nurse Practitioner Family; Visit Provider Nurse Practitioner Family | DX: M25.512 Pain in left shoulder (principal); M75.52 Bursitis of left shoulder; M70.72 Other bursitis of hip, left hip | CPT/HCPCS: 97010; 97014; 97140; 97165; 97530; G0283 ==

== ENCOUNTER 2022-09-28 09:02 | Day surgery (SDC) | payer MEDICARE, MEDICAID, SELFPAY ==
[2022-09-28 09:15] VITALS: BP 138/71; PULSE 61; RESP 16; TEMP 36.2; O2SAT 99; BMI 51.2
[2022-09-28 09:42] VITALS: BP 178/70; PULSE 75; RESP 18; O2SAT 94
[2022-09-28 09:45] VITALS: BP 178/70; PULSE 67; RESP 18; O2SAT 97
--- NOTE | 2022-09-28 09:52 | P.PCN_ITS ---
Procedure Date: 09/28/22 Time: 09:40 Anesthesiologist:: Pee Lambert CRNA Complications:: None Pre-procedure Diagnosis:: Degenerative disc lumbar spine multilevels. Lumbar radiculopathy. Lumbar postlaminectomy syndrome. Chronic low back pain. Post-procedure Diagnosis:: Same. Indications for Procedure:: Patient is a very pleasant 56-year-old female comes our clinic today for intrathecal pain pump interrogation and refill. She is doing very well with her current medication Dilaudid 10 mg/mL at 1.6940 mg/day. She does not report any side effects or complications. However, she is asking for an increase in the rate due to some increased back pain with activity. I think this was r easonable. We will increase her by 10% today. Procedure Details:: Details of the procedure explained to the patient. The patient taken to procedure room placed in sitting position. The area of the pump was cleansed using chlorhexidine cleansing solution. The pump was accessed with ease using 22-gauge inch and a half needle. The pump was interrogated. 7 mL of solution was withdrawn from the pump and discarded appropriately. The pump was then filled incrementally with 20 cc of solution containing Dilaudid 10 mg/mL. The pump will be increased to 1.86 mg/day. Patient tolerated procedure without difficulty. No complications. Plan and Disposition:: Patient was discharged without incident.
[2022-09-28 09:55] VITALS: BP 134/83; PULSE 65; RESP 16; O2SAT 99
[2022-09-28 14:01] LABS: Amphetamine/Metha Screen,Urine Negative ng/ml (<1000)
[2022-09-28 14:02] LABS: Barbiturates Screen,Urine Negative ng/ml (<200)
[2022-09-28 14:03] LABS: Benzodiazepines Screen,Urine Negative ng/ml (<200); Cannabinoid Screen,Urine Negative ng/ml (<50)
[2022-09-28 14:04] LABS: Cocaine Screen,Urine Negative ng/ml (<300); Methadone Screen,Urine Negative ng/ml (<300)
[2022-09-28 14:05] LABS: Opiate Screen,Urine Positive ng/ml (<300)
[2022-09-28 14:06] LABS: Phencyclidine Screen,Urine Negative ng/ml (<25)
[2022-10-03 15:37] LABS: Codeine Negative (Cutoff=100); Hydrocodone Negative (Cutoff=100); Hydromorphone Positive (.); Morphine Negative (Cutoff=100); Opiates Positive (.)
== END 2022-09-28 09:55 | disposition home or self-care (01) ==
PROVIDERS: PCP Nurse Practitioner Family; Visit Provider Nurse Anesthetist, Certified Registered
DX: M51.16 Intervertebral disc disorders with radiculopathy, lumbar region (principal); M96.1 Postlaminectomy syndrome, not elsewhere classified; M54.50 Low back pain, unspecified; G89.29 Other chronic pain
CPT/HCPCS: 76536; 80305; 80361; 80365; 95991; G0480

== ENCOUNTER → 2022-09-28 14:41 | Outpatient (CLI) | payer MEDICARE, MEDICAID, SELFPAY ==
--- NOTE | 2022-09-28 14:50 | US_ITS ---
FINAL REPORT CLINICAL HISTORY: THYROID ANTIBODY POSITIVE COMPARISON: None FINDINGS: Thyroid ultrasound: The right lobe of the thyroid gland measures 3.1 x 1.2 x 1.5 cm in size. The echogenicity of the right lobe is unremarkable, and no evidence of focal mass is identified. The left lobe of the thyroid measures 2.9 x 1 x 1.4 cm in size. There is a nodule in the lower pole of the left thyroid lobe, measuring 3 x 3 x 4 mm in size. This nodule is solid, hypoechoic, and a TI-RADS 4 category nodule. No other masses or nodules are identified. The isthmus of the thyroid is unremarkable in appearance and measures 3 mm in thickness. IMPRESSION: The overall size of the thyroid gland is small, a nonspecific finding. This may be secondary to a chronic thyroiditis. Single nodule left lobe of the thyroid gland, 3 x 3 x 4 cm in size, a TI-RADS 4 category nodule. No follow-up is required. Reviewed, Interpreted and Dictated by Igor Nam III, MD Transcribed by June Alarcon Authenticated and [facility]
== END ==
PROVIDERS: PCP Nurse Practitioner Family; Visit Provider Nurse Practitioner Family
DX: E07.9 Disorder of thyroid, unspecified (principal); R94.6 Abnormal results of thyroid function studies
CPT/HCPCS: 76536

== ENCOUNTER 2022-10-05 12:43 | Emergency (ER) | payer MEDICARE, MEDICAID, SELFPAY ==
[2022-10-05 13:05] VITALS: BP 133/67; PULSE 83; RESP 20; TEMP 36.7; O2SAT 98; BMI 54.1
--- NOTE | 2022-10-05 13:14 | EXP.UTC ---
Discharge Plan Disposition Patient Disposition: Home, Self-Care Condition: Good Prescriptions Prescriptions: New benzonatate [benzonatate] 100 mg capsule 100 mg PO TIDP PRN (Reason: Cough) Qty: 30 0RF cefdinir 300 mg capsule 300 mg PO BID Qty: 20 0RF methylprednisolone 4 mg Tablets,Dose Pack 4 mg PO DIRECTED Qty: 21 0RF guaifenesin [Mucinex] 600 mg tablet extended release 12hr 600 - 1,200 mg PO BIDP PRN (Reason: Congestion) Qty: 30 0RF No Action multivitamin Tablet 1 tab PO DAILY lidocaine HCl 10 mg/mL (1 %) solution 10 mg IJ ONCE Qty: 1 0RF triamcinolone acetonide [Kenalog] 40 mg/mL suspension 40 mg IJ ONCE Qty: 1 0RF levothyroxine 137 MCG tablet 137 mcg PO DAILY brimonidine 0.2 % drops 1 drp Eye-Both BID Patient Comments: INSTILL 1 DROP INTO EACH EYE TWICE DAILY DIRECTED gabapentin 300 mg capsule 300 mg PO TID PRN (Reason: Pain) Qty: 90 0RF pregabalin [Lyrica] 150 mg capsule 150 mg PO TID furosemide [Lasix] 40 mg tablet 40 mg PO DAILY Referrals Follow up/Referrals: Gita Muhammad APRN [Primary Care Provider] - See instructions Activity Restrictions/Add. Instructions Additional Instructions/Restrictions: Drink plenty of fluids. Take tylenol or ibuprofen for pain or fever. Take the medications as directed. Follow up with your regular doctor. GO TO THE ER FOR ANY WORSENING SYMPTOMS Clinical Impressions Clinical Impression: Sinusitis, Otitis media, Bronchitis Instructions Patient Instructions: Middle Ear Infection, DI for Sinusitis, DI for Acute Bronchitis Discharge ED Provider: Miguelito Alfaro [facility] General Stated complaint: ear pain, congestion, sinus pressure Time Seen by Provider: 10/05/22 13:14 History of Present Illness Provider Complaint: She states that for the past 2 weeks she has had chest congestion and a cough. Over the past 3 to 4 days she has developed sinus congestion, ear pain, and sore throat. She denies any shortness of breath. She denies fever/chills/body aches. Related Data Home Medications Medication Instructions Recorded Confirmed levothyroxine 137 mcg tablet 137 mcg PO DAILY thyroid 03/06/19 09/28/22 multivitamin 1 tab PO DAILY Supplement 07/08/21 09/28/22 brimonidine 0.2 % eye drops 1 drp Eye-Both BID Glaucoma 02/17/22 09/28/22 furosemide 40 mg tablet (Lasix) 40 mg PO DAILY . 07/20/22 09/28/22 pregabalin 150 mg capsule (Lyrica) 150 mg PO TID . 07/20/22 09/28/22 Previous Rx's Medication Instructions Recorded gabapentin 300 mg capsule 300 mg PO TID PRN Pain #90 caps 05/19/22 benzonatate 100 mg capsule 100 mg PO TIDP PRN Cough #30 caps 10/05/22 cefdinir 300 mg capsule 300 mg PO BID #20 caps 10/05/22 guaifenesin 600 mg tablet, 600 - 1,200 mg PO BIDP PRN 10/05/22 extended release 12 hr (Mucinex) Congestion #30 tabs methylprednisolone 4 mg tablets in 4 mg PO DIRECTED #21 tabs 10/05/22 a dose pack Allergies Allergy/AdvReac Type Severity Reaction Status Date / Time Penicillins Allergy Verified 09/28/22 09:16 topiramate [From Topamax] Allergy Rash Verified 09/28/22 09:16 [facility] Disclaimer: The information contained in this section may have been updated after the patient was seen, as this information can be updated by other users. Medical History Asthma CAD (coronary artery disease) Congestive heart failure Edema of both lower extremities Ex-smoker Family history of lung cancer History of 2019 novel coronavirus disease (COVID-19) History of back pain History of gastroesophageal reflux (GERD) HTN (hypertension) Hyperlipidemia IBS (irritable bowel syndrome) Lung nodule Migraine Morbid obesity BRAULIO (obstructive sleep apnea) Stopped smoking with greater than 30 pack year history Surgical History H/O bilateral salpingo-oophorectomy H/O: hysterectomy History of cholecystectomy History of
[2022-10-05 13:23] VITALS: BP 133/67; PULSE 83; RESP 20; TEMP 36.7; O2SAT 98
== END 2022-10-05 13:39 | disposition home or self-care (01) ==
PROVIDERS: Emergency Provider Nurse Practitioner Family; PCP Nurse Practitioner Family
DX: J20.9 Acute bronchitis, unspecified (principal); J01.90 Acute sinusitis, unspecified; H66.93 Otitis media, unspecified, bilateral; I11.0 Hypertensive heart disease with heart failure; I50.9 Heart failure, unspecified; I25.10 Atherosclerotic heart disease of native coronary artery without angina pectoris; E78.5 Hyperlipidemia, unspecified; E66.01 Morbid (severe) obesity due to excess calories; G47.33 Obstructive sleep apnea (adult) (pediatric); Z87.891 Personal history of nicotine dependence
CPT/HCPCS: 99212; 99214; G0463

== ENCOUNTER 2022-12-07 09:22 | Day surgery (SDC) | payer MEDICARE, MEDICAID, SELFPAY ==
[2022-12-07 09:20] VITALS: BP 127/62; PULSE 63; RESP 18; TEMP 36.4; O2SAT 100; BMI 47.9
[2022-12-07 09:42] VITALS: BP 149/99; PULSE 72; RESP 18; O2SAT 96
[2022-12-07 09:55] VITALS: BP 127/62; PULSE 67; RESP 18; O2SAT 100
--- NOTE | 2022-12-07 10:43 | EXP.PAIN.PRO ---
Procedure Date: 12/07/22 Time: 10:00 Anesthesiologist:: Pee Lambert CRNA Complications:: None Pre-procedure Diagnosis:: Degenerative disc lumbar spine multilevels. Lumbar radiculopathy. Lumbar postlaminectomy syndrome. Chronic pain syndrome. Post-procedure Diagnosis:: Same. Indications for Procedure:: Very pleasant 57-year-old female that comes our clinic today for intrathecal pain pump interrogation refill. Patient currently being managed with Dilaudid 10 mg/mL at 1.86 mg/day. Patient reports doing very well with her current settings. She does not report any side effects from the current intrathecal pain pump management. Procedure Details:: Details of the procedure explained to the patient. Patient was taken the procedure room placed in the sitting position. The area over the pump is cleansed using chlorhexidine as a cleansing solution. The pump was interrogated. The pump was accessed with ease using a 22-gauge inch and half needle. 6 mL of solution was withdrawn and discarded appropriately. The pump was then filled with 20 cc of a solution containing Dilaudid 10 mg/mL. No change in pump rate. Patient tolerated procedure without difficulty. No complications. Plan and Disposition:: Patient was discharged without incident.
== END 2022-12-07 09:55 | disposition home or self-care (01) ==
LOC: SC.PAINP 09:23
PROVIDERS: PCP Nurse Practitioner Family; Visit Provider Nurse Anesthetist, Certified Registered
DX: M51.16 Intervertebral disc disorders with radiculopathy, lumbar region (principal); M96.1 Postlaminectomy syndrome, not elsewhere classified; G89.4 Chronic pain syndrome; Z97.8 Presence of other specified devices
CPT/HCPCS: 95991

== ENCOUNTER → 2023-01-25 09:09 | Outpatient (CLI) | payer MEDICARE, MEDICAID, SELFPAY ==
[2023-01-26 16:17] LABS: Adenovirus,PCR Not Detected (NotDetected); Coronavirus 19, PCR Not Detected (NotDetected); Coronavirus 229E Not Detected (NotDetected); Coronavirus NL63 Not Detected (NotDetected); Coronavirus OC43 Not Detected (NotDetected); Coronovirus HKU1,PCR Not Detected (NotDetected); Human Metapneumovirus Not Detected (NotDetected); Influenza A, PCR Not Detected (NotDetected); Influenza AH1, 2009 Not Detected (NotDetected); Influenza AH1, PCR Not Detected (NotDetected); Influenza AH3,PCR Not Detected (NotDetected); Influenza B, PCR Not Detected (NotDetected); Parainfluenza 1, PCR Not Detected (NotDetected); Parainfluenza 2, PCR Not Detected (NotDetected); Parainfluenza 3, PCR Not Detected (NotDetected); Parainfluenza 4, PCR Not Detected (NotDetected); Respiratory Syncytial Virus Not Detected (NotDetected); Rhinovirus/Enterovirus Not Detected (NotDetected)
== END ==
PROVIDERS: PCP Nurse Practitioner Family; Visit Provider Nurse Practitioner Family
DX: J06.9 Acute upper respiratory infection, unspecified; R05.1 Acute cough; Z20.822 Contact with and (suspected) exposure to COVID-19; R51.9 Headache, unspecified
CPT/HCPCS: 87581; 87632; 87635; 87798

== ENCOUNTER 2023-02-11 08:45 | Day surgery (SDC) | payer MEDICARE, MEDICAID, SELFPAY ==
[2023-02-11 09:01] VITALS: BP 156/77; PULSE 71; PULSE 72; RESP 18; RESP 20; O2SAT 97; O2SAT 98
[2023-02-11 09:02] VITALS: BP 145/66; PULSE 71; RESP 16; O2SAT 95; BMI 46.0
--- NOTE | 2023-02-11 09:16 | EXP.PAIN.PRO ---
Procedure Date: 02/11/23 Time: 09:00 Anesthesiologist:: Pee Lambert CRNA Complications:: None Pre-procedure Diagnosis:: Degenerative disc lumbar spine multilevels. Lumbar radiculopathy. Lumbar postlaminectomy syndrome. Lumbar spondylosis Post-procedure Diagnosis:: Same. Indications for Procedure:: Patient is a very pleasant 57-year-old female comes our clinic today for intrathecal pain pump interrogation refill. She is currently being managed with Dilaudid 2 mg/mL at a rate of 1.8600 mg/day. She is doing very well to current settings. She is not reporting any side effects or complications regarding her current intrathecal pain pump management. Procedure Details:: Details of the procedure explained to the patient. The patient taken the procedure room placed in sitting position. The area of the pump was cleansed using chlorhexidine as a cleansing solution. The pump was interrogated. The pump was accessed with ease using a 22-gauge inch and half needle. 6.5 mL of solution was withdrawn discarded appropriately. The pump was then filled with 20 cc of solution containing Dilaudid 10 mg/mL. Pump rate will remain the same. 1.8600 mg/day. Patient tolerated procedure without difficulty. There are no complications. Plan and Disposition:: Patient was discharged without incident.
[2023-02-11 09:20] VITALS: BP 131/71; PULSE 71; RESP 16; O2SAT 95
== END 2023-02-11 09:20 | disposition home or self-care (01) ==
PROVIDERS: PCP Nurse Practitioner Family; Visit Provider Nurse Anesthetist, Certified Registered
DX: M51.16 Intervertebral disc disorders with radiculopathy, lumbar region (principal); M96.1 Postlaminectomy syndrome, not elsewhere classified; M47.26 Other spondylosis with radiculopathy, lumbar region; Z97.8 Presence of other specified devices; Z45.1 Encounter for adjustment and management of infusion pump
CPT/HCPCS: 95991

== ENCOUNTER 2023-02-18 16:53 | Outpatient (CLI) | payer MEDICARE, MEDICAID, SELFPAY ==
[2023-02-18 15:45] LABS: Basophils % 0.5 % (0.1-2.0); Eosinophils # 0.2 K/mm3 (0.0-0.4); Eosinophils % 2.4 % (0.1-12.0); Hematocrit 39.7 % (37.0-47.0); Hemoglobin 12.5 g/dL (12.2-16.2); Lymphocytes # 1.6 K/mm3 (0.7-4.5); Lymphocytes % 19.1 % (10-50); Mean Corpuscular HGB Conc 31.5 g/dL (31.8-35.4); Mean Corpuscular Hemoglobin 27.4 pg (27.0-31.2); Mean Corpuscular Volume 86.8 fl (81-99); Mean Platelet Volume 9.1 fl (7.4-10.4); Monocytes # 0.6 K/mm3 (0.1-1.0); Monocytes % 6.8 % (1.7-9.3); Neutrophils % 71.2 % (37.0-80.0); Platelet Count 402 K/mm3 (142-424); Red Blood Count 4.57 M/mm3 (4.20-5.40); Red Cell Distribution Width 17.3 % (11.5-17.5); White Blood Count 8.5 K/mm3 (4.8-10.8)
[2023-02-18 16:21] LABS: Hemoglobin A1C 5.1 % (4.0-6.0)
[2023-02-18 16:49] LABS: Thyroid Stimulating Hormone 0.88 uIU/mL (0.465-4.68)
[2023-02-18 16:53] LABS: Ferritin 25.9 ng/ml (11.1-264)
[2023-02-18 17:42] LABS: Vitamin B12 244 pg/mL (239-931)
== END 2023-02-18 23:59 ==
LOC: LAB.DROPOF 16:54
PROVIDERS: PCP Nurse Practitioner Family; Visit Provider Nurse Practitioner Family
DX: G62.9 Polyneuropathy, unspecified (principal); R73.9 Hyperglycemia, unspecified; D50.9 Iron deficiency anemia, unspecified; E03.9 Hypothyroidism, unspecified
CPT/HCPCS: 82607; 82728; 83036; 84443; 85025

== ENCOUNTER 2023-03-21 16:55 | Outpatient (CLI) | payer MEDICARE, MEDICAID, SELFPAY ==
[2023-03-21 18:06] LABS: T4 (Thyroxine) 10.4 ug/dl (5.53-11.0)
[2023-03-21 18:19] LABS: Thyroid Stimulating Hormone 0.06 uIU/mL (0.465-4.68)
[2023-03-23 08:21] LABS: Triiodothyronine (T3) Free 3.1 pg/mL (2.0-4.4)
== END 2023-03-21 23:59 ==
LOC: LAB.DROPOF 16:55
PROVIDERS: PCP Nurse Practitioner Family; Visit Provider Nurse Practitioner Family
DX: E06.9 Thyroiditis, unspecified (principal)
CPT/HCPCS: 84436; 84439; 84443; 84481

== ENCOUNTER 2023-04-11 10:47 | Emergency (ER) | payer MEDICARE, MEDICAID, SELFPAY ==
[2023-04-11 12:10] VITALS: BP 136/64; PULSE 64; RESP 18; TEMP 36.6; O2SAT 97; BMI 50.9
--- NOTE | 2023-04-11 12:30 | EXP.UTC ---
Discharge Plan Disposition Patient Disposition: Home, Self-Care Condition: Good Prescriptions Prescriptions: New azithromycin [Zithromax Z-Luis Angel] 250 mg tablet See Rx Instructions .ROUTE .COMPLEX 5 Days Qty: 6 0RF Rx Instructions: For 250 mg dose pack: take 500 mg today (day 1), then 250 mg for 4 days (days 2-5) methylprednisolone [Medrol (Luis Angel)] 4 mg tablets,dose pack See Rx Instructions .Route .COMPLEX 6 Days Qty: 21 0RF Rx Instructions: taper pack; No Action montelukast 10 mg tablet 10 mg PO DAILY omeprazole 20 mg capsule,delayed release(DR/EC) 20 mg PO BID Qty: 60 3RF ropinirole 0.5 mg tablet See Rx Instructions .ROUTE .COMPLEX 30 Days Qty: 30 5RF Dose Instruction: TAKE 1 TABLET BY MOUTH 1-3 HOURS BEFORE BEDTIME NIGHTLY Rx Instructions: TAKE 1 TABLET BY MOUTH 1-3 HOURS BEFORE BEDTIME NIGHTLY levothyroxine 125 mcg capsule 125 mcg PO DAILY 30 Days Qty: 30 2RF Referrals Follow up/Referrals: Gita Muhammad APRN [Primary Care Provider] - See instructions Activity Restrictions/Add. Instructions Additional Instructions/Restrictions: *Monitor Temp, Over the counter Motrin or Tylenol as directed/as needed Tylenol every 4 hours and Motrin every 6 hours (as long as your family doctor has told you that you can take it) for fever or pain. and straight to ER if unable to lower temp less than 101.0 after medication given *Warm salt water gargles may help to soothe the throat *Throat Lozenges? *Warm fluids like tea with honey may help to soothe the throat? *Sleep elevated *Humidifier/Vaporizer Follow up IMMEDIATELY for new or worsening symptoms or no Noticeable improvement over the next 48-72 hours. 911 for difficulty breathing or swallowing Clinical Impressions Clinical Impression: Sinusitis Instructions Patient Instructions: DI for Sinusitis, Sinusitis Discharge ED [place] Lid[place] [facility] [place] General Stated complaint: congestion, PAYNE, soa Mode of Arrival: Ambulatory Source of Information: Patient Limitations: No Limitations Time Seen by Provider: 04/11/23 12:37 Description of Symptoms (Recalled from Triage Doc. by RN): PATIENT C/O NASAL CONGESTION AND SINUS PRESSURE THAT STARTED OVER THE WEEKEND HEENT Symptoms (Recalled from RN notes): Yes Resp Symptoms (Recalled from RN notes): No Skin Symptoms (Recalled from RN notes): No MS Symptoms (Recalled from RN notes): No Functional Status (Recalled from RN notes): WNL History of Present Illness Provider Complaint: Patient states that she started with sinus congestion about a week ago got worse over the weekend with sinus pain and pressure States feels like she has a sinus infection again Related Data Home Medications Medication Instructions Recorded Confirmed montelukast 10 mg tablet 10 mg PO DAILY 01/25/23 04/11/23 Previous Rx's Medication Instructions Recorded ropinirole 0.5 mg tablet See Rx Instructions .Route 03/21/23 .COMPLEX 30 days #30 tabs levothyroxine 125 mcg capsule 125 mcg PO DAILY 30 days #30 caps 03/22/23 omeprazole 20 mg capsule,delayed 20 mg PO BID gerd #60 caps 03/24/23 release azithromycin 250 mg tablet See Rx Instructions PO .COMPLEX 5 04/11/23 (Zithromax Z-Luis Angel) days #6 tabs methylprednisolone 4 mg tablets in See Rx Instructions .Route 04/11/23 a dose pack (Medrol (Luis Angel)) .COMPLEX 6 days #21 tabs Allergies Allergy/AdvReac Type Severity Reaction Status Date / Time Penicillins Allergy Verified 03/24/23 09:45 topiramate [From Topamax] Allergy Rash Verified 03/24/23 09:45 Worker's Comp Is this a Worker's Comp case?: No [facility] Disclaimer: The information contained in this section may have been updated after the patient was seen, as this information can be updated by other users. Medical History Asthma CAD (coronary artery disease) Congestive heart failure Deviated nasal septum Edema of both lower extremities Ex-smoker Family history of lung cancer GERD (gastroesophageal reflux disease) History of 2019 novel coronavirus disease (COVID-19) History of back pain History of gastroesophageal reflux (GERD) HTN (hypertension) Hyperlipidemia IBS (irritable bowel syndrome) Lung nodule Migraine Morbid obesity BRAULIO (obstructive sleep apnea) Stopped smoking with greater than 30 pack year history Surgical History H/O bilateral salpingo-oophorectomy H/O: hysterectomy History of cholecystectomy History of colonoscopy S/P insertion of intrathecal pump Family History Other Breast cancer Colon cancer Family history of Alzheimer's disease Family history of COPD (chronic obstructive pulmonary disease) Family history of GERD Family history of TIAs Family history of acute congestive heart failure Family history of asthma Family history of diabetes mellitus type II Family history of hyperlipidemia Family history of hypertension Family history of hypothyroidism Family history of irritable bowel syndrome Family history of kidney stone Family history of migraine headaches Family history of myocardial infarction Heart disease Lung cancer Stroke Social History Smoking Status: Former smoker tobacco type: cigarettes packs per day: 1 years smoked: 20 smoking status stop date: 18 years ago alcohol intake: former substance use type: denies use current occupational status: other Travel in the last 8 weeks: None household members: spouse and children housing: house lives independently: No marital status: current occupational exposures/hazards: No caffeine: Yes ROS Obtained: Yes All systems reviewed & no additional complaints except as documented and Yes Systems reviewed as appropriate & no additional complaints except as documented Constitutional Constitutional: Reports system reviewed and no additional complaints, except as documented and Reports as per HPI ENT Ears, Nose, Mouth, and Throat: Reports system reviewed and no additional complaints, except as documented, Reports as per HPI, Reports sinus pain and Reports sinus pressure Cardiovascular Cardiovascular: Reports system reviewed and no additional complaints, except as documented and Reports as per HPI Respiratory Respiratory: Reports system reviewed and no additional complaints, except as documented and Reports as per HPI Gastrointestinal Gastrointestingal: Reports system reviewed and no additional complaints, except as documented and as per HPI Physical Exam General General appearance: alert and in no apparent distress ENT ENT exam: Present mucous membranes moist Expanded ENT Exam Nose exam: Present sinus tenderness Throat exam: Present other (PND noted) Respiratory Respiratory exam: Present normal lung sounds bilaterally; Absent respiratory distress or wheezes Cardiovascular Cardiovascular exam: Present regular rate, normal rhythm and normal heart sounds Abdominal Exam Abdominal exam: Present soft and normal bowel sounds; Absent distention or tenderness Neurological Exam Neurological exam: Present alert, oriented X3 and normal gait Medical Decision Making Andres Inquiry Pt receiving controlled substance: No Andres was queried for this patient: No Vital Signs: 04/11/23 12:10 Temperature 97.9 F Temperature Source Oral Pulse Rate [Left Brachial] 64 Respiratory Rate 18 Blood Pressure [Left Arm] 136/64 Blood Pressure Mean [Left Arm] 88 Blood Pressure Source [Left Arm] Automatic Cuff Blood Pressure Position [Left Arm] Sitting 02 Sat by Pulse Oximetry 97 Oxygen Delivery Method Room Air Medical Decision Narrative: Patient states that she has taken azithromycin and medrol in the past without complications or reactions
[2023-04-11 12:46] VITALS: BP 136/64; PULSE 64; RESP 18; TEMP 36.6; O2SAT 97
== END 2023-04-11 12:51 | disposition home or self-care (01) ==
PROVIDERS: Emergency Provider Nurse Practitioner; PCP Nurse Practitioner Family
DX: J01.90 Acute sinusitis, unspecified (principal); R51.9 Headache, unspecified; I11.0 Hypertensive heart disease with heart failure; I25.10 Atherosclerotic heart disease of native coronary artery without angina pectoris; I50.9 Heart failure, unspecified; K21.9 Gastro-esophageal reflux disease without esophagitis; E78.5 Hyperlipidemia, unspecified; Z87.891 Personal history of nicotine dependence
CPT/HCPCS: 99212; 99214; G0463

== ENCOUNTER 2023-04-19 08:06 | Day surgery (SDC) | payer MEDICARE, MEDICAID, SELFPAY ==
[2023-04-19 08:28] VITALS: BP 150/84; PULSE 70; RESP 18; TEMP 36.3; O2SAT 99; BMI 47.4
[2023-04-19 09:10] VITALS: BP 136/76; PULSE 61; RESP 18; O2SAT 99
[2023-04-19 09:13] VITALS: BP 160/95; PULSE 68; RESP 20; O2SAT 97
--- NOTE | 2023-04-19 09:19 | EXP.PAIN.PRO ---
Procedure Date: 04/19/23 Time: 09:00 Anesthesiologist:: Pee Lambert CRNA Complications:: None Pre-procedure Diagnosis:: Degenerative disc lumbar spine multilevels. Lumbar radiculopathy. Lumbar postlaminectomy syndrome. Chronic pain syndrome. Post-procedure Diagnosis:: Same. Indications for Procedure:: Patient is a very pleasant 57-year-old female comes our clinic today for intrathecal pain pump interrogation refill. She is currently being managed with Dilaudid 10 mg/mL at a rate of 1.86 mg/day. She is requesting an increase due to low back pain she reports increases with activity. Warm weather has allowed her to be out in the yard doing light yard work. She rates her pain today 07/24. Procedure Details:: Details of the procedure explained to the patient. The patient taken the procedure room placed in the sitting position. The area of the pumps cleansed using chlorhexidine's cleansing solution. The pump was interrogated. The pump was accessed with ease using 22-gauge inch and half needle. 6.4 mL of solution was withdrawn and discarded appropriate. The pump was then filled with 20 cc of a solution containing Dilaudid 10 mg/mL. The rate was increased by 10%. Her new rate will be 2.0460 mg today. Patient tolerated procedure without difficulty. There are no complications. Plan and Disposition:: Patient was discharged without incident. I discussed in detail with the patient regarding her pain. It appears it is lumbar facet mediated pain. She has difficulty with flexion, extension, left and right rotation. I discussed medial branch block of the L4-5 and L5-S1 facet joints. Patient said she would think about this. Let us know.
[2023-04-19 09:31] VITALS: BP 160/95; PULSE 68; RESP 18; O2SAT 97
[2023-04-19 10:45] LABS: Free T4 (Free Thyroxine) 1.21 ng/dl (0.78-2.19)
[2023-04-19 10:59] LABS: Thyroid Stimulating Hormone 0.48 uIU/mL (0.465-4.68)
[2023-04-19 12:48] LABS: Barbiturates Screen,Urine Negative ng/ml (<200)
[2023-04-19 12:49] LABS: Benzodiazepines Screen,Urine Negative ng/ml (<200); Cannabinoid Screen,Urine Negative ng/ml (<50)
[2023-04-19 12:50] LABS: Cocaine Screen,Urine Negative ng/ml (<300)
[2023-04-19 12:51] LABS: Phencyclidine Screen,Urine Negative ng/ml (<25)
[2023-04-19 12:52] LABS: Opiate Screen,Urine Positive ng/ml (<300)
[2023-04-19 14:25] LABS: Methadone Screen,Urine Negative ng/ml (<300)
[2023-04-19 14:26] LABS: Amphetamine/Metha Screen,Urine Negative ng/ml (<1000)
[2023-04-24 15:01] LABS: Codeine Negative (Cutoff=100); Hydrocodone Negative (Cutoff=100); Hydromorphone Positive (.); Morphine Negative (Cutoff=100); Opiates Positive (.)
== END 2023-04-19 09:10 | disposition home or self-care (01) ==
LOC: SC.PAINP 08:07
PROVIDERS: Anesthesiology; Nurse Practitioner; PCP Nurse Practitioner Family; Visit Provider Nurse Anesthetist, Certified Registered
DX: E03.9 Hypothyroidism, unspecified (principal); M51.16 Intervertebral disc disorders with radiculopathy, lumbar region; M96.1 Postlaminectomy syndrome, not elsewhere classified; G89.4 Chronic pain syndrome; Z97.8 Presence of other specified devices; Z45.1 Encounter for adjustment and management of infusion pump
CPT/HCPCS: 36415; 80307; 80361; 80365; 84439; 84443; 95991; G0480

== ENCOUNTER 2023-04-22 14:56 | Outpatient (CLI) | payer MEDICARE, MEDICAID, SELFPAY ==
--- NOTE | 2023-04-22 14:57 | CT_ITS ---
FINAL REPORT TECHNIQUE: Thin section axial CT images of the facial bones and sinuses were obtained without contrast. Coronal reformatted images were also obtained.This study was performed with techniques to keep radiation doses as low as reasonably achievable, (ALARA). Individualized dose reduction techniques using automated exposure control or adjustment of mA and/or kV according to the patient''''s size were employed. CLINICAL HISTORY: sinusitis COMPARISON: None FINDINGS: There is mild mucosal thickening of the maxillary sinuses bilaterally, including the ostia and infundibula and producing mild narrowing. No fluid levels are identified. A right nasal septal spur is present. No fracture or acute bony abnormality is identified. IMPRESSION: Mild mucosal thickening of the maxillary sinuses as described, without air-fluid levels. A right nasal septal spur is present. Reviewed, Interpreted and Dictated by Igor Nam III, MD Transcribed by June Alarcon Authenticated and [facility]
== END 2023-04-22 23:59 ==
LOC: RAD 14:57
PROVIDERS: PCP Nurse Practitioner Family; Visit Provider Nurse Practitioner
DX: J32.9 Chronic sinusitis, unspecified (principal); Z87.891 Personal history of nicotine dependence
CPT/HCPCS: 70486

== ENCOUNTER 2023-06-10 16:20 | Emergency (ER) | payer MEDICARE, MEDICAID, SELFPAY ==
--- OUTSIDE RECORDS SUMMARY | 2023-06-10 16:26 | XMS_ITS ---
Author Name Ruddy Greer Address [address] [place] [id number] Organization Unknown Address [address] [place] [id number] ALLERGIES AND ADVERSE REACTIONS No information ASSESSMENT No information CHIEF COMPLAINT No information MEDICATIONS No information OBJECTIVE DATA No information PHYSICAL EXAMINATION No information TREATMENT PLAN Planned Care Start Date Provider Encounter for Check-up [id number] [facility] PROBLEMS No information RESULTS No information REVIEW OF SYSTEMS No information SUBJECTIVE DATA No information VITAL SIGNS No information
[2023-06-10 16:45] VITALS: BP 132/66; PULSE 76; RESP 18; TEMP 36.6; O2SAT 98; BMI 48.8
--- NOTE | 2023-06-10 17:20 | ED_ITS ---
Discharge Plan Disposition Patient Disposition: Home, Self-Care Condition: Good Prescriptions Prescriptions: New azithromycin [Zithromax Z-Luis Angel] 250 mg tablet See Rx Instructions .ROUTE .COMPLEX 5 Days Qty: 6 0RF Rx Instructions: For 250 mg dose pack: take 500 mg today (day 1), then 250 mg for 4 days (days 2-5) methylprednisolone [Medrol (Luis Angel)] 4 mg tablets,dose pack See Rx Instructions .Route .COMPLEX 6 Days Qty: 21 0RF Rx Instructions: taper pack; No Action montelukast 10 mg tablet 10 mg PO DAILY omeprazole 20 mg capsule,delayed release(DR/EC) 20 mg PO BID Qty: 60 3RF ropinirole 0.5 mg tablet See Rx Instructions .ROUTE .COMPLEX 30 Days Qty: 30 5RF Dose Instruction: TAKE 1 TABLET BY MOUTH 1-3 HOURS BEFORE BEDTIME NIGHTLY Rx Instructions: TAKE 1 TABLET BY MOUTH 1-3 HOURS BEFORE BEDTIME NIGHTLY levothyroxine 125 mcg capsule 125 mcg PO DAILY 30 Days Qty: 30 2RF Referrals Follow up/Referrals: Gita Muhammad APRN [Primary Care Provider] - See instructions Activity Restrictions/Add. Instructions Additional Instructions/Restrictions: *Monitor Temp, Over the counter Motrin or Tylenol as directed/as needed Tylenol every 4 hours and Motrin every 6 hours (as long as your family doctor has told you that you can take it) for fever or pain. and straight to ER if unable to lower temp less than 101.0 after medication given *Warm salt water gargles may help to soothe the throat *Throat Lozenges? *Warm fluids like tea with honey may help to soothe the throat? *Sleep elevated *Humidifier/Vaporizer Take medication as prescribed Follow up IMMEDIATELY for new or worsening symptoms or no Noticeable improvement over the next 48-72 hours. 911 for difficulty breathing or swallowing Clinical Impressions Clinical Impression: Sinusitis Instructions Patient Instructions: DI for Sinusitis, Sinusitis Discharge ED Provider: Lidya Perdomo [facility] [place] General Stated complaint: congestion cough sinus pressure ba Mode of Arrival: Ambulatory Source of Information: Patient Limitations: No Limitations Time Seen by Provider: 06/10/23 17:20 Description of Symptoms (Recalled from Triage Doc. by RN): Pt's symptoms are congestion, cough, and body aches. HEENT Symptoms (Recalled from RN notes): No Resp Symptoms (Recalled from RN notes): No Skin Symptoms (Recalled from RN notes): No MS Symptoms (Recalled from RN notes): No Functional Status (Recalled from RN notes): n/a History of Present Illness Provider Complaint: Patient states that she has been having sinus pain and pressure, cough, and body aches States feels like she has a bad sinus infection Related Data Home Medications Medication Instructions Recorded Confirmed montelukast 10 mg tablet 10 mg PO DAILY 01/25/23 06/10/23 Previous Rx's Medication Instructions Recorded ropinirole 0.5 mg tablet See Rx Instructions .Route 03/21/23 .COMPLEX 30 days #30 tabs omeprazole 20 mg capsule,delayed 20 mg PO BID gerd #60 caps 03/24/23 release levothyroxine 125 mcg capsule 125 mcg PO DAILY 30 days #30 caps 04/20/23 azithromycin 250 mg tablet See Rx Instructions PO .COMPLEX 5 06/10/23 (Zithromax Z-Luis Angel) days #6 tabs methylprednisolone 4 mg tablets in See Rx Instructions .Route 06/10/23 a dose pack (Medrol (Luis Angel)) .COMPLEX 6 days #21 tabs Allergies Allergy/AdvReac Type Severity Reaction Status Date / Time Penicillins Allergy Verified 06/10/23 17:02 topiramate [From Topamax] Allergy Rash Verified 06/10/23 17:02 Worker's Comp Is this a Worker's Comp case?: No [facility] Disclaimer: The information contained in this section may have been updated after the patient was seen, as this information can be updated by other users. Medical History GERD (gastroesophageal reflux disease) Deviated nasal septum Edema of both lower extremities History of 2019 novel coronavirus disease (COVID-19) Family history of lung cancer Stopped smoking with greater than 30 pack year history Lung nodule Asthma Migraine History of back pain History of gastroesophageal reflux (GERD) Congestive heart failure IBS (irritable bowel syndrome) Hyperlipidemia CAD (coronary artery disease) BRAULIO (obstructive sleep apnea) HTN (hypertension) Ex-smoker Morbid obesity Surgical History S/P insertion of intrathecal pump H/O bilateral salpingo-oophorectomy H/O: hysterectomy History of colonoscopy History of cholecystectomy Family History Other Breast cancer Colon cancer Family history of Alzheimer's disease Family history of COPD (chronic obstructive pulmonary disease) Family history of GERD Family history of TIAs Family history of acute congestive heart failure Family history of asthma Family history of diabetes mellitus type II Family history of hyperlipidemia Family history of hypertension Family history of hypothyroidism Family history of irritable bowel syndrome Family history of kidney stone Family history of migraine headaches Family history of myocardial infarction Heart disease Lung cancer Stroke Social History Smoking Status: Former smoker tobacco type: cigarettes packs per day: 1 years smoked: 20 smoking status stop date: 18 years ago alcohol intake: former substance use type: denies use current occupational status: other Travel in the last 8 weeks: None household members: spouse and children housing: house lives independently: No marital status: current occupational exposures/hazards: No caffeine: Yes ROS Obtained: Yes All systems reviewed & no additional complaints except as documented and Yes Systems reviewed as appropriate & no additional complaints except as documented Constitutional Constitutional: Reports system reviewed and no additional complaints, except as documented and Reports as per HPI ENT Ears, Nose, Mouth, and Throat: Reports system reviewed and no additional complaints, except as documented, Reports as per HPI, Reports sinus pain and Reports sinus pressure Cardiovascular Cardiovascular: Reports system reviewed and no additional complaints, except as documented and Reports as per HPI Respiratory Respiratory: Reports system reviewed and no additional complaints, except as documented, Reports as per HPI and Reports cough Gastrointestinal Gastrointestingal: Reports system reviewed and no additional complaints, except as documented and as per HPI Physical Exam General General appearance: alert and in no apparent distress ENT ENT exam: Present mucous membranes moist Expanded ENT Exam Nose exam: Present sinus tenderness Throat exam: Present other (Pharyngeal erythema noted with PND) Respiratory Respiratory exam: Present normal lung sounds bilaterally; Absent respiratory distress or wheezes Cardiovascular Cardiovascular exam: Present regular rate, normal rhythm and normal heart sounds Neurological Exam Neurological exam: Present alert, oriented X3 and normal gait Medical Decision Making Andres Inquiry Pt receiving controlled substance: No Andres was queried for this patient: No Vital Signs: 06/10/23 16:45 Temperature 97.9 F Temperature Source Oral Pulse Rate [Right Radial] 76 Respiratory Rate 18 Blood Pressure [Right Arm] 132/66 Blood Pressure Mean [Right Arm] 88 Blood Pressure Source [Right Arm] Automatic Cuff Blood Pressure Position [Right Arm] Sitting 02 Sat by Pulse Oximetry 98 Oxygen Delivery Method Room Air Medical Decision Narrative: Patient states that she has taken azithrmycin and Medrol in the past with her current medications without complications or reaction
[2023-06-10 17:39] VITALS: BP 132/66; PULSE 76; RESP 18; TEMP 36.6; O2SAT 98
== END 2023-06-10 17:38 | disposition home or self-care (01) ==
PROVIDERS: Emergency Provider Nurse Practitioner; PCP Nurse Practitioner Family
DX: J01.90 Acute sinusitis, unspecified (principal); R05.9 Cough, unspecified; R09.81 Nasal congestion
CPT/HCPCS: 99212; 99214; G0463

== ENCOUNTER 2023-06-28 07:56 | Day surgery (SDC) | payer MEDICARE, SELFPAY ==
[2023-06-28 08:27] VITALS: BP 155/76; PULSE 79; RESP 18; TEMP 36.4; O2SAT 99; BMI 48.6
[2023-06-28 08:30] VITALS: BP 147/77; PULSE 72; RESP 20; O2SAT 99
[2023-06-28 08:31] VITALS: BP 147/77; PULSE 76; RESP 20; O2SAT 99
[2023-06-28 08:40] VITALS: BP 172/70; PULSE 72; RESP 18; O2SAT 99
--- NOTE | 2023-06-28 08:46 | EXP.PAIN.PRO ---
Procedure Date: 06/28/23 Time: 08:20 Anesthesiologist:: Pee Lambert CRNA Complications:: None Pre-procedure Diagnosis:: Degenerative disc lumbar spine multilevels. Lumbar radiculopathy. Lumbar postlaminectomy syndrome. Lumbar spondylosis. Post-procedure Diagnosis:: Same. Indications for Procedure:: Patient is a very pleasant 57-year-old female comes our clinic today for intrathecal pain pump interrogation and refill. She is currently being managed with hydromorphone 10 mg/mL at a rate of 2.0460 mg/day. She is doing very well with her current settings. She not requesting any changes. She does not report any side effects or complications with her intrathecal pain pump management. Procedure Details:: Details of the procedure explained to the patient. The patient taken procedure room placed in sitting position. The area of the pump is cleansed using chlorhexidine as a cleansing solution. The pump was interrogated. The pump was accessed with ease using a 22-gauge inch and half needle. 5 mL of solution was withdrawn discarded appropriately. The pump was then filled with 20 cc of a solution containing hydromorphone 10 mg/mL. The right will continue at 2.0460 mg/day. Patient tolerated procedure without difficulty. There are no complications. Plan and Disposition:: Patient was discharged without incident.
== END 2023-06-28 08:40 | disposition home or self-care (01) ==
PROVIDERS: PCP Nurse Practitioner Family; Visit Provider Nurse Anesthetist, Certified Registered
DX: M51.16 Intervertebral disc disorders with radiculopathy, lumbar region (principal); M96.1 Postlaminectomy syndrome, not elsewhere classified; M47.26 Other spondylosis with radiculopathy, lumbar region; Z97.8 Presence of other specified devices; Z45.1 Encounter for adjustment and management of infusion pump
CPT/HCPCS: 95991

== ENCOUNTER 2023-08-30 08:02 | Day surgery (SDC) | payer MEDICARE, SELFPAY ==
[2023-08-30 08:32] VITALS: BP 135/79; PULSE 54; RESP 18; TEMP 36.7; O2SAT 100; BMI 51.3
[2023-08-30 09:09] VITALS: BP 149/71; PULSE 56; RESP 18; O2SAT 97
[2023-08-30 09:11] VITALS: BP 149/71; PULSE 58; RESP 18; O2SAT 97
--- NOTE | 2023-08-30 09:22 | EXP.PAIN.PRO ---
Procedure Date: 08/30/23 Time: 09:10 Anesthesiologist:: Pee Lambert CRNA Complications:: None Pre-procedure Diagnosis:: Degenerative disc lumbar spine multilevels. Lumbar radiculopathy. Lumbar postlaminectomy syndrome. Lumbar spondylosis Post-procedure Diagnosis:: Same. Indications for Procedure:: Patient is a very pleasant 57-year-old female comes to clinic today for intrathecal pain pump interrogation and refill. Patient currently being managed with Dilaudid 2 mg/mL at 2.0460 mg/day. She is doing very well with her current settings. She is not requesting any changes. She does not report any side effects or complications. Procedure Details:: Details of the procedure explained to the patient. The patient taken procedure room placed in the prone position on the fluoroscopy table. The area over the pump is cleansed using chlorhexidine's cleansing solution. Using fluoroscopy guidance spine was accessed without difficulty. 6 mL of solution was withdrawn and discarded appropriate. The pump was then filled with 20 cc of solution containing hydromorphone 10 mg/mL incrementally with observance of the pump using fluoroscopy in lateral position.. The pump rate will remain the same. 2.0460 mg/day. Patient tolerated procedure without difficulty. No complications. Plan and Disposition:: Patient was discharged without incident.
[2023-08-30 09:28] VITALS: BP 146/62; PULSE 52; RESP 18; O2SAT 100
== END 2023-08-30 09:29 | disposition home or self-care (01) ==
PROVIDERS: PCP Nurse Practitioner Family; Visit Provider Nurse Anesthetist, Certified Registered
DX: G89.29 Other chronic pain (principal); M51.36 Other intervertebral disc degeneration, lumbar region; M47.26 Other spondylosis with radiculopathy, lumbar region; M96.1 Postlaminectomy syndrome, not elsewhere classified
CPT/HCPCS: 95991

== ENCOUNTER 2023-09-28 08:53 | Outpatient (POV) | payer MEDICARE, SELFPAY ==
--- OUTSIDE RECORDS SUMMARY | 2023-09-28 08:55 | XMS_ITS ---
Author Organization [facility] ALLERGIES AND ADVERSE REACTIONS No information ASSESSMENT No information CHIEF COMPLAINT No information Medications Date Medication Dosage Dosageunit Startdate Active Dispense Refills Ndccode Isprescription Srcstatus 10/01 00:00 :00 Cefdinir 300 MG Capsule 04/28/2021 00:00:00 0 14 0 [id number] 006 P Unknown Status 09/20 00:00 :00 Cefdinir 300 MG Capsule 04/28/2021 00:00:00 0 14 0 [id number] 006 P Unknown Status 10/01 00:00 :00 Cinnamon 500 MG Capsule null 1 [id number] 724 Taking 09/20 00:00 :00 Cinnamon 500 MG Capsule null 1 [id number] 724 Taking 10/01 00:00 :00 Dicyclomine HCl 10 MG Capsule null 1 540 Capsule 1 [id number] 610 Taking 09/20 00:00 :00 Dicyclomine HCl 10 MG Capsule null 1 540 Capsule 1 [id number] 610 Taking 10/01 00:00 :00 Dorzolamide HCl 2 % Solution null 1 [id number] 510 Taking 09/20 00:00 :00 Dorzolamide HCl 2 % Solution null 1 [id number] 510 Taking 10/01 00:00 :00 Estradiol 1 MG Tablet null 1 30 Tablet 2 [id number] 602 P Taking 09/20 00:00 :00 Estradiol 1 MG Tablet null 1 30 Tablet 2 [id number] 602 P Taking 10/01 00:00 :00 Flovent HFA 110 MCG/ACT Aerosol null 1 [id number] 920 Taking 09/20 00:00 :00 Flovent HFA 110 MCG/ACT Aerosol null 1 [id number] 920 Taking 10/01 00:00 :00 Furosemide 80 MG Tablet null 1 [id number] 125 Taking 09/20 00:00 :00 Furosemide 80 MG Tablet null 1 [id number] 125 Taking 10/01 00:00 :00 Gabapentin 300 MG Capsule null 1 30 [id number] 661 Taking 09/20 00:00 :00 Gabapentin 300 MG Capsule null 1 30 [id number] 661 Taking 10/01 00:00 :00 Latanoprost 0.005 % Solution null 1 [id number] 325 Taking 09/20 00:00 :00 Latanoprost 0.005 % Solution null 1 [id number] 325 Taking 10/01 00:00 :00 Levothyroxi ne Sodium 137 MCG Tablet null 1 90 Tablet 1 [id number] 310 Taking 09/20 00:00 :00 Levothyroxi ne Sodium 137 MCG Tablet null 1 90 Tablet 1 [id number] 310 Taking 10/01 00:00 :00 Lisinopril 20 MG Tablet null 1 30 [id number] 801 Not Taking 09/20 00:00 :00 Lisinopril 20 MG Tablet null 1 30 [id number] 801 Not Taking 10/01 00:00 :00 Montelukast Sodium 10 MG Tablet null 1 30 [id number] 806 Taking 09/20 00:00 :00 Montelukast Sodium 10 MG Tablet null 1 30 [id number] 806 Taking 10/01 00:00 :00 Multi For Her 50+ Tablet null 1 [id number] 96 Taking 09/20 00:00 :00 Multi For Her 50+ Tablet null 1 [id number] 96 Taking 10/01 00:00 :00 Osteo Bi-Flex Adv Double St null 1 Taking 09/20 00:00 :00 Osteo Bi-Flex Adv Double St null 1 Taking 10/01 00:00 :00 Promethazin e HCl 25 MG/ML Solution null 1 [id number] 821 Not Taking 09/20 00:00 :00 Promethazin e HCl 25 MG/ML Solution null 1 [id number] 821 Not Taking 10/01 00:00 :00 rOPINIRole HCl 1 MG Tablet null 1 30 [id number] 101 Not Taking 09/20 00:00 :00 rOPINIRole HCl 1 MG Tablet null 1 30 [id number] 101 Not Taking 10/01 00:00 :00 Spironolact one 25 MG Tablet null 1 90 0 [id number] 601 P Taking 09/20 00:00 :00 Spironolact one 25 MG Tablet null 1 90 0 [id number] 601 P Taking 10/01 00:00 :00 Topiramate 25 MG Tablet null 1 30 [id number] 861 Not Taking 09/20 00:00 :00 Topiramate 25 MG Tablet null 1 30 [id number] 861 Not Taking 10/01 00:00 :00 traZODone HCl 50 MG Tablet null 1 30 [id number] 861 Not Taking 09/20 00:00 :00 traZODone HCl 50 MG Tablet null 1 30 [id number] 861 Not Taking OBJECTIVE DATA No information PHYSICAL EXAMINATION No information TREATMENT PLAN No information PROBLEMS No information RESULTS No information REVIEW OF SYSTEMS No information SUBJECTIVE DATA No information VITAL SIGNS No information
--- NOTE | 2023-09-28 09:39 | EXP.PAIN.PRO ---
Procedure Date: 09/28/23 Time: 09:39 Anesthesiologist:: Merly Ruiz APRN Complications:: None Pre-procedure Diagnosis:: Degenerative disc disease of lumbar spine with lumbar radiculopathy symptoms, lumbar postlaminectomy syndrome, lumbar spondylosis, sacroiliitis Post-procedure Diagnosis:: Same Indications for Procedure:: Patient is a pleasant 57-year-old female who presents today for intrathecal adjustment and reprogram as well as worsening back pain and bilateral hip pain. Today she rates her pain an 8 out of 10. Patient does describe her pain as an aching, throbbing sensation that has pressure into her buttocks area. Patient does state that prolonged positioning seems to aggravate her symptoms and it does affect her ability perform activities of daily living such as cooking and cleaning. Patient does state that she is interested in injection therapy to have improvement. She has tried [id number] medications along with heat and ice and topicals and continued at home stretching exercise for longer than 6 weeks. Patient is currently managed with Dilaudid 10 mg/mL with a daily dose of 2.046 mg/day. She denies any side effects from this medication. Her Andres has been reviewed and is appropriate. Physical Exam: General: Alert and oriented x3, no acute distress, pleasant and cooperative Lungs: Respirations even and unlabored, symmetrical chest expansion Eyes: PERRL Musculoskeletal: Flexion and extension of lumbar [spine] somewhat guarded secondary to pain, [antalgic gait noted] point tenderness along bilateral SIs with positive bilateral Gianni's, Daniel's, Gaenslen's, compression and distraction exam Neurological: Speech clear, no gross sensory deficit Procedure Details:: Informed consent was obtained and the risk and benefits of the procedure were explained to the patient. Patient was taken to the procedure room where noninvasive monitoring was placed including noninvasive blood pressure cuff and pulse oximeter. Patient's pump was interrogated and was reprogrammed to Dilaudid 2.35 mg/day. The patient tolerated the procedure well with no complications. Plan and Disposition:: Patient tolerated her intrathecal refill with no complications and was discharged neurologically intact. Patient did have point tenderness along her bilateral SIs with positive bilateral Gianni's, Daniel's, Gaenslen's, compression and distraction exam. I did discuss with patient that she may benefit from bilateral SI injections as this pain has been going on for the last few months. Risk and benefits of these injections were explained to the patient and she would like to proceed forward with this plan of care. Patient has tried and failed conservative therapy including continued at home stretching exercise for longer than 6 weeks. We will schedule the patient for bilateral SI injections under fluoroscopy. Patient has been instructed to contact the clinic with any concerns before the next appointment. Dr. Canchola has reviewed this note and agrees with this plan of care. This note was dictated using voice recognition software and make contain errors or omissions. All injections are used with Lidocaine or Bupivacaine and Depo Medrol.
[2023-09-28 10:01] VITALS: BP 146/70; PULSE 67; RESP 18; O2SAT 97; BMI 48.8
== END 2023-09-28 23:59 | disposition home or self-care (01) ==
PROVIDERS: PCP Nurse Practitioner Family; Visit Provider Nurse Practitioner Family
DX: M96.1 Postlaminectomy syndrome, not elsewhere classified; M46.1 Sacroiliitis, not elsewhere classified; M51.36 Other intervertebral disc degeneration, lumbar region; M47.816 Spondylosis without myelopathy or radiculopathy, lumbar region
CPT/HCPCS: 62368; 99213; G0463

== ENCOUNTER 2023-10-11 07:58 | Day surgery (SDC) | payer MEDICARE, SELFPAY ==
[2023-10-11 08:04] VITALS: BP 113/71; PULSE 71; RESP 16; TEMP 36.7; O2SAT 97; BMI 48.8
[2023-10-11] MEDS: LIDOCAINE 1% 5ML PF VIAL 5 ML (08:58)
[2023-10-11] MEDS: BUPIVACAINE 0.25% 10ML INJ 25 MG IJ (08:58)
[2023-10-11] MEDS: methylPREDNISolone ACETATE 80MG/ML VIAL 80 MG (08:59)
[2023-10-11 09:00] VITALS: BP 158/62; PULSE 60; RESP 18; O2SAT 97
[2023-10-11 09:01] VITALS: BP 158/62; PULSE 60; RESP 18; O2SAT 97
[2023-10-11 09:10] VITALS: BP 147/65; PULSE 59; RESP 18; O2SAT 97
--- NOTE | 2023-10-11 09:18 | P.PCN_ITS ---
Procedure Date: 10/11/23 Time: 09:00 Anesthesiologist:: Pee Lambert CRNA Complications:: None Pre-procedure Diagnosis:: Bilateral sacroiliitis Post-procedure Diagnosis:: Same Indications for Procedure:: Patient is a pleasant 58-year-old female who comes our clinic today for bilateral sacroiliac joint injections cortisone and local anesthetic. Patient describes low lumbar back pain off the midline is constant, dull, aching. Patient reports having difficulty ambulating and/or sitting for any length of time due to pain. She reports having difficulty transitioning from sitting to standing due to intense pain. She rates her pain 8/10. Procedure Details:: Procedure: Bilateral sacroiliac joint injections under fluoroscopy Informed consent was obtained and the risks and benefits of the procedure were explained to the patient.~ The patient was taken to the procedure room and noninvasive monitors were placed including a noninvasive blood pressure cuff and pulse oximeter.~ The patient was placed prone on the procedure table. Both hips were cleansed using Betadine as a cleansing solution. C-arm fluoroscopy was used to view the right sacroiliac joint.~ The skin and subcutaneous tissues were anesthetized using lidocaine 1.5% and a 25-gauge needle.~ After this, a 22-gauge spinal needle was inserted under fluoroscopic guidance into the inferior aspect of the right sacroiliac joint.~ Omnipaque dye was injected and good spread was seen throughout the joint.~ After this, approximately 5 mL of bupivacaine, 0.25% and Depo-Medrol, 40 mg was incrementally injected into the right sacroiliac joint. We then moved to the left sacroiliac joint.~ The skin and subcutaneous tissues were anesthetized using lidocaine 1.5% and a 25-gauge needle.~ After this, a 22- gauge spinal needle was inserted under fluoroscopic guidance into the inferior aspect of the left sacroiliac joint.~ Omnipaque dye was injected and good spread was seen throughout the joint. After this, approximately 5 mL of bupivacaine, 0.25% and Depo-Medrol, 40 mg was incrementally injected into the left sacroiliac joint.~ The patient tolerated the procedure well with no complications. The patient was observed in the Pain Clinic and then was discharged home neurologically intact. Plan and Disposition:: Patient was discharged without incident.
== END 2023-10-11 09:16 | disposition home or self-care (01) ==
LOC: SC.PAINP 07:59
PROVIDERS: PCP Nurse Practitioner Family; Visit Provider Nurse Anesthetist, Certified Registered
DX: M46.1 Sacroiliitis, not elsewhere classified (principal)
CPT/HCPCS: 27096; G0260; J1010

== ENCOUNTER 2023-11-01 08:30 | Day surgery (SDC) | payer MEDICARE, SELFPAY ==
[2023-11-01 09:01] VITALS: BP 129/41; PULSE 62; RESP 16; TEMP 36.2; O2SAT 98; BMI 48.8
[2023-11-01 09:30] VITALS: BP 153/79; PULSE 61; RESP 18; O2SAT 97
[2023-11-01 09:31] VITALS: BP 153/79; PULSE 62; RESP 18; O2SAT 96
--- NOTE | 2023-11-01 09:44 | EXP.PAIN.PRO ---
Procedure Date: 11/01/23 Time: 09:35 Anesthesiologist:: Pee Lambert CRNA Complications:: None Pre-procedure Diagnosis:: Degenerative disc lumbar spine multilevels. Lumbar radiculopathy. Lumbar postlaminectomy syndrome. Bilateral sacroiliitis. Post-procedure Diagnosis:: Same. Indications for Procedure:: Patient is a very pleasant 58-year-old female comes to clinic today for intrathecal pain pump interrogation and refill. Patient is currently being managed with Dilaudid 10 mg/mL at 2.3500 mg/day. She is doing very well with her current settings. She not reporting side effects or complications. She is not requesting any changes. Patient is awake alert [place] x 3. No acute distress. Flexion-extension lumbar spine somewhat guarded secondary to pain. Deep tendon reflexes upper and lower extremities normal. Motor strength upper and lower extremities normal. There is no gross sensory deficit. Gait is antalgic. She requires a cane for stability. Procedure Details:: Details of the procedure explained to the patient. The patient taken the procedure room placed in the prone position on fluoroscopy table. The intrathecal pain pump was interrogated. The pump was accessed with ease using a 22-gauge 2-1/2 inch needle using fluoroscopy guidance. 5 mL of solution was withdrawn discarded appropriate. The pump was then filled incrementally under fluoroscopy with 20 cc of solution containing Dilaudid 10 mg/mL. Patient tolerated procedure without difficulty. No complications. Plan and Disposition:: Patient was discharged without incident.
[2023-11-01 09:47] VITALS: BP 144/87; PULSE 66; RESP 18; O2SAT 99
== END 2023-11-01 09:47 | disposition home or self-care (01) ==
PROVIDERS: PCP Nurse Practitioner Family; Visit Provider Nurse Anesthetist, Certified Registered
DX: Z79.891 Long term (current) use of opiate analgesic (principal); M51.16 Intervertebral disc disorders with radiculopathy, lumbar region; M96.1 Postlaminectomy syndrome, not elsewhere classified; M46.1 Sacroiliitis, not elsewhere classified
CPT/HCPCS: 95991

== ENCOUNTER 2023-11-28 10:32 | Outpatient (CLI) | payer MEDICARE, SELFPAY ==
[2023-11-28 17:59] LABS: Influenza A, PCR Not Detected (NotDetected); Influenza B, PCR Not Detected (NotDetected)
[2023-11-29 00:51] LABS: Coronavirus 19, PCR Detected (NotDetected)
== END 2023-11-28 23:59 | disposition home or self-care (01) ==
LOC: LAB.DROPOF 11-29 10:32
PROVIDERS: PCP Student in an Organized Health Care Education/Training Program; Visit Provider Student in an Organized Health Care Education/Training Program
DX: R50.9 Fever, unspecified (principal); J06.9 Acute upper respiratory infection, unspecified
CPT/HCPCS: 87636

== ENCOUNTER 2023-12-20 08:39 | Day surgery (SDC) | payer MEDICARE, SELFPAY ==
--- OUTSIDE RECORDS SUMMARY | 2023-12-20 08:40 | XMS_ITS ---
Laboratory report Created on: October 28, 2023 RYAN SORTO : 1965 Sex: Female Author Name ANTHONY SCHMITT Higgle Unknown PROBLEMS Problems List Code Description R76.8 RESULTS Laboratory Orders Date Order Code Test 2022-09-20 [id number] TSH+FREE T4 2022-09-20 [id number] THYROXINE (T4) 2022-09-20 [id number] THYROGLOBULIN AN TIBODY 2022-09-20 [id number] THYROID PEROXIDA SE (TPO) AB 2022-09-20 [id number] TRIIODOTHYRONINE (T3), FREE Laboratory Results Date LOINC Test Value Unit Reference Range Interpre tation 2022-09-20 [id number] TSH 1.66 UIU/ML 0.450-4.500 2022-09-20 3024-7 T4,FREE(DIRECT) 1.41 NG/DL 0.82-1.77 2022-09-20 3026-2 THYROXINE (T4) 8.9 UG/DL 4.5-12.0 2022-09-20 8098-6 THYROGLOBULIN ANTIBODY 75.9 IU/ML 0.0-0. 9 H 2022-09-20 8099-4 THYROID PEROXIDA SE (TPO) AB 41 IU/ML 0-34 H 2022-09-20 3051-0 TRIIODOTHYRONINE (T3), FREE 2.8 PG/ML 2.0-4.4
--- OUTSIDE RECORDS SUMMARY | 2023-12-20 08:40 | XMS_ITS ---
Laboratory report Created on: October 28, 2023 RYAN SORTO : 1965 Sex: Female Author Organization Unknown PROBLEMS Problems List Code Description RESULTS Laboratory Orders Date Order Code Test 2022-09-28 [id number] OPIATES AND OXYC ODONE, MS, UR Laboratory Results Date LOINC Test Value Unit Reference Range Interpre tation 2022-09-28 [facility] 2022-09-28 56722-5 OPIATES P A 2022-09-28 3507-1 CODEINE NEG. 2022-09-28 3830-7 MORPHINE NEG. 2022-09-28 9834-3 HYDROMORPHONE P A 2022-09-28 27952-5 HYDROMORPHONE CO NF, MS, UR 315 NG/ML 2022-09-28 99638-6 HYDROCODONE NEG. 2022-09-28 04210-3 OXYCODONE/OXYMORPH NEG.
--- OUTSIDE RECORDS SUMMARY | 2023-12-20 08:40 | XMS_ITS ---
Laboratory report Created on: October 28, 2023 RYAN SORTO : 1965 Sex: Female Author Name SCHMITTANTHONY COLE Organization Unknown PROBLEMS Problems List Code Description R76.8 RESULTS Laboratory Orders Date Order Code Test 2022-06-22 [id number] ANTINUCLEAR AB M ULTIPLEX RFX 5 Laboratory Results Date LOINC Test Value Unit Reference Range Interpre tation 2022-06-22 8061-4 JOSE DIRECT P NEGATIVE A 2022-06-22 5130-0 ANTI-DNA (DS) AB QN 15 IU/ML 0-9 H 2022-06-22 12690-9 PRINCIPAL TECHNICAL WRITER ANTIBODIES 1.1 AI 0.0-0.9 H 2022-06-22 32095-1 BIRCH ANTIBODIES .3 AI 0.0-0.9 2022-06-22 40342-9 SJOGREN'S ANTI-SS-A >8.0 AI 0.0-0.9 H 2022-06-22 80168-1 SJOGREN'S ANTI-SS-B .3 AI 0.0-0.9
--- OUTSIDE RECORDS SUMMARY | 2023-12-20 08:40 | XMS_ITS ---
Laboratory report Created on: October 28, 2023 RYAN SORTO : 1965 Sex: Female Author Name ANTHONY SCHMITT [employer] Unknown PROBLEMS Problems List Code Description N28.9 M25.50 RESULTS Laboratory Orders Date Order Code Test 2022-06-10 [id number] URIC A+ESR-MARIA EUGENIA+A NA+RF QN+CRP 2022-06-10 [id number] COMP. METABOLIC PANEL (14) Laboratory Results Date LOINC Test Value Unit Reference Range Interpre tation 2022-06-10 3084-1 URIC ACID 5.4 MG/DL 3.0-7.2 2022-06-10 8061-4 JOSE DIRECT P NEGATIVE A 2022-06-10 48827-5 RHEUMATOID FACTO R (RF) <10.0 IU/ML <14.0 2022-06-10 1988-5 C-REACTIVE PROTE IN, QUANT 20 MG/L 0-10 H 2022-06-10 4537-7 SEDIMENTATION RATE-WESTERGREN 76 MM/HR 0-40 H 2022-06-10 2345-7 GLUCOSE 98 MG/DL 70-99 2022-06-10 3094-0 BUN 16 MG/DL 6-24 2022-06-10 2160-0 CREATININE .86 MG/DL 0.57-1.00 2022-06-10 70073-4 EGFR 78 ML/MIN/1.7 3 >59 2022-06-10 3097-3 BUN/CREATININE RATIO 19 9-2022-06-10 2951-2 SODIUM 143 MMOL/L 843-994 2880-04-27 2823-3 POTASSIUM 3.5 MMOL/L 3.5-5.2 2022-06-10 2075-0 CHLORIDE 100 MMOL/L 96-106 2022-06-108-9 CARBON DIOXIDE, TOTAL 27 MMOL/L -2022-06-10 59869-7 CALCIUM 9.1 MG/DL 8.7-10.2 2022-06-10 2885-2 PROTEIN, TOTAL 7.8 G/DL 6.0-8.5 2022-06-10 1751-7 ALBUMIN 3.9 G/DL 3.8-4.9 2022-06-10 24873-2 GLOBULIN, TOTAL 3.9 G/DL 1.5-4.5 2022-06-10 1759-0 A/G RATIO 1 1.2-2.2 L 2022-06-10 1975-2 BILIRUBIN, TOTAL <0.2 MG/DL 0.0-1.2 2022-06-10 6768-6 ALKALINE PHOSPHATASE 110 IU/L 44-121 2022-06-10 1920-8 AST (SGOT) 14 IU/L 0-40 2022-06-10 1742-6 ALT (SGPT) 12 IU/L 0-32
[2023-12-20 09:00] VITALS: BP 133/74; PULSE 71; RESP 16; O2SAT 94; BMI 49.9
[2023-12-20 09:16] VITALS: BP 166/65; PULSE 69; RESP 18; O2SAT 97
[2023-12-20 09:44] VITALS: BP 124/72; PULSE 71; RESP 16; O2SAT 94
--- NOTE | 2023-12-20 11:06 | P.PCN_ITS ---
Procedure Date: 12/20/23 Time: 09:45 Anesthesiologist:: Pee Lambert CRNA Complications:: None Pre-procedure Diagnosis:: Degenerative disc lumbar spine multilevels. Lumbar radiculopathy. Lumbar postlaminectomy syndrome. Bilateral sacroiliitis. Post-procedure Diagnosis:: Same. Indications for Procedure:: Patient is a very pleasant 58-year-old female who comes our clinic today for intrathecal pain pump interrogation and refill. Patient currently being managed with Dilaudid 10 mg/mL at 2.35 mg/day. She is doing very well with her current settings. She is not requesting any changes. She is not reporting side effects or complications. Patient reports pump efficacy is waning a bit. I suspect the pump is coming to end-of-life. Also, patient reporting pump has become painful at times due to the position. The pump is somewhat twisted. We discussed pump exchange. Answered her questions. She wants to proceed. This would be intrathecal pain pump exchange as well as catheter exchange. Patient is awake alert [place] x 3. In no acute distress. Flexion-extension lumbar spine somewhat guarded secondary to pain. Deep tendon reflexes upper and lower extremities normal. Motor strength upper and lower extremities normal. There is no gross sensory deficit. Gait is normal. Procedure Details:: Details of the procedure explained to the patient. The patient taken procedure room placed in sitting position. The area of the pump was cleansed using chlorhexidine as a cleansing solution. The pump was interrogated. The pump was accessed with ease using a 22-gauge inch and half needle. 4.5 mL of solution was withdrawn discarded appropriate. The pump was then filled with 20 cc of solution containing Dilaudid 10 mg/mL. Patient tolerated procedure without difficulty. There are no complications. Pump rate will remain the same at 2.35 mg/day. Plan and Disposition:: She was discharged without incident. We will start the process of paperwork and obtaining insurance approval for intrathecal pain pump and catheter exchange.
== END 2023-12-20 09:44 | disposition home or self-care (01) ==
LOC: SC.PAINP 08:39
PROVIDERS: PCP Student in an Organized Health Care Education/Training Program; Visit Provider Nurse Anesthetist, Certified Registered
DX: M51.16 Intervertebral disc disorders with radiculopathy, lumbar region (principal); M96.1 Postlaminectomy syndrome, not elsewhere classified; M46.1 Sacroiliitis, not elsewhere classified
CPT/HCPCS: 95991

== ENCOUNTER 2024-02-03 14:27 | Outpatient (CLI) | payer MEDICARE, SELFPAY ==
[2024-02-03 13:53] LABS: Hemoglobin 12.6 g/dL (12.2-16.2); Red Blood Count 4.71 M/mm3 (4.20-5.40); White Blood Count 7.9 K/mm3 (4.8-10.8)
[2024-02-03 13:54] LABS: Basophils # 0.1 K/mm3 (0-0.2); Basophils % 0.9 % (0.1-2.0); Eosinophils # 0.3 K/mm3 (0.0-0.4); Eosinophils % 3.5 % (0.1-12.0); Lymphocytes # 1.6 K/mm3 (0.7-4.5); Lymphocytes % 20.6 % (10-50); Mean Corpuscular HGB Conc 30.7 g/dL (31.8-35.4); Mean Corpuscular Hemoglobin 26.8 pg (27.0-31.2); Mean Platelet Volume 10.4 fl (7.4-10.4); Monocytes # 0.7 K/mm3 (0.1-1.0); Monocytes % 8.6 % (1.7-9.3); Neutrophils # 5.2 K/mm3 (1.8-7.8); Neutrophils % 66.1 % (37.0-80.0); Platelet Count 377 K/mm3 (142-424); Red Cell Distribution Width 16.8 % (11.5-17.5)
[2024-02-03 14:22] LABS: Hemoglobin A1C 5.1 % (4.0-6.0)
[2024-02-03 14:28] LABS: Alanine Aminotransferase 23 U/L (12-78); Albumin Level 3.9 g/dl (3.5-5.0); Albumin/Globulin Ratio 1.1 (1.1-1.8); Alkaline Phosphatase 118 U/L (38-126); Anion Gap 12.4 mEq/L (5-15); Aspartate Amino Transferase 31 U/L (14-36); Bilirubin,Total 0.7 mg/dl (0.2-1.3); Blood Urea Nitrogen 17 mg/dl (7-17); Carbon Dioxide 26 mmol/L (22.0-30.0); Chloride 106 mmol/L (98-107); Chol/HDL Ratio 3.2 (1-3.5); Cholesterol 132 mg/dl (140-200); Estimated Glomerular Filt Rate 57 ml/min (>60); GFR (African American) 68 ML/MIN (>60); Globulin 3.7 g/dL (1.3-3.2); Glucose 87 mg/dl (74-100); HDL Cholesterol 41 mg/dl (40-60); Magnesium 1.9 mg/dl (1.6-2.3); Potassium 4.4 mmoL/L (3.5-5.1); Sodium 140 mmol/L (136-145); Total Protein,Serum 7.6 g/dl (6.3-8.2); Triglycerides 116 mg/dl (30-150); VLDL Cholesterol 23 mg/dL (0-40)
[2024-02-03 14:40] LABS: Direct LDL Cholesterol 66.36 mg/dL (100-129)
[2024-02-03 15:02] LABS: Thyroid Stimulating Hormone 3.39 uIU/mL (0.465-4.68)
== END 2024-02-03 23:59 | disposition home or self-care (01) ==
LOC: LAB.DROPOF 14:28
PROVIDERS: PCP Nurse Practitioner Family; Visit Provider Nurse Practitioner Family
DX: E78.5 Hyperlipidemia, unspecified (principal); I10 Essential (primary) hypertension; R06.02 Shortness of breath; Z13.1 Encounter for screening for diabetes mellitus; E03.9 Hypothyroidism, unspecified; Z87.891 Personal history of nicotine dependence
CPT/HCPCS: 80053; 80061; 83036; 83735; 84443; 84481; 85025

== ENCOUNTER 2024-02-17 12:55 | Day surgery (SDC) | payer MEDICARE, SELFPAY ==
--- NOTE | 2024-02-17 13:11 | P.PCN_ITS ---
Procedure Date: 02/17/24 Time: 13:55 Anesthesiologist:: Merly Ruiz APRN Complications:: None Pre-procedure Diagnosis:: Degenerative disc disease of lumbar spine with lumbar radiculopathy symptoms Post-procedure Diagnosis:: Same Indications for Procedure:: Patient is a pleasant 58-year-old female who presents today for intrathecal refill and reprogram. Today she rates her pain a 5 out of 10. She denies any new trauma or injury. She does state that her pump is still photographer due to the angle that it is under the skin. Patient is currently managed with Dilaudid 10 mg/mL with a daily dose of 2.6206 mg/day. She denies any side effects from this medication. Patient would like to proceed forward with having her pump replaced. Her Andres has been reviewed and is appropriate. Her Andres has been reviewed and is appropriate. Physical Exam: General: Alert and oriented x3, no acute distress, pleasant and cooperative Lungs: Respirations even and unlabored, symmetrical chest expansion Eyes: PERRL Musculoskeletal: Flexion and extension of lumbar [spine] somewhat guarded secondary to pain, [antalgic gait noted] Neurological: Speech clear, no gross sensory deficit Procedure Details:: Informed consent was obtained and the risk and benefits of the procedure were explained to the patient. The patient had noninvasive monitoring placed including noninvasive blood pressure cuff and pulse oximeter. Patient's pump was interrogated. The area over the pump was cleansed with chlorhexidine as a cleansing solution. In sterile fashion the pump was accessed with a 22-gauge needle. Approximately 5.9 mls of the pump solution was removed and discarded appropriately. The pump was then refilled with 20 mL's of Dilaudid 10 mg/mL. The needle was withdrawn and a bandage was placed over the puncture site. The infusion rate was reprogrammed and continued at 2.6206 mg/day. The patient tolerated well with no complication. Plan and Disposition:: Patient tolerated her procedure well with no complications and was discharged neurologically intact. I did review over with the patient the risk and benefits of intrathecal replacements and that her catheter would also have to be exchang ed due to it being not compatible with the Mobile Captain system. Patient's device is going towards end of its life. We will plan on submitting for pump and catheter replacement under fluoroscopy due to end-of-life. Patient will return to clinic for her next intrathecal refill date and we will be planning on the March surgery date for her pump replacement.. We will see the patient back in the clinic at the next intrathecal refill. Patient has been instructed to contact the clinic with any concerns before the next appointment. Dr. Canchola has reviewed this note and agrees with this plan of care. This note was dictated using voice recognition software and make contain errors or omissions. -- It Is medically necessary for this patient to continue to have their intrathecal pump refilled at regular intervals. This patient had an intrathecal pain pump implanted after meeting criteria of chronic intractable pain for greater than 3 months and failing conservative treatments. Patient has committed and been compliant to the treatment plan and all planned follow up care. Since implantation of the intrathecal pain pump, the patient has had decreased pain and been more functional. Oral medications have been reduced including intake of oral opioids. Patient continues to do well with intrathecal therapy with decrease in pain symptoms and increase in functional status. Stopping intrathecal medications can lead to life threatening withdrawal, seizures, cardiac arrest, severe pain, and possible . Pumps that are not refilled at regular intervals can be damages and cause and need for replacement. We continually titrate dose and concentration to optimize pain relief and function. We are limited in concentration for certain drugs to safely deliver medications through the pump and stay within the recommendations from the Polyanalgesic Consensus Committee Guidelines. Depending on dose and concentration these pumps may need to be refilled sooner than 3 months as we titrate. A UDS is needed to verify patient's compliance with our office pain contract. This is ordered based off specific treatments related to chronic pain with the potential to abuse certain medications.
[2024-02-17 13:40] VITALS: BP 158/68; PULSE 70; RESP 16; TEMP 36.4; O2SAT 97; BMI 49.5
[2024-02-17 13:58] VITALS: BP 168/73; PULSE 68; RESP 18; O2SAT 98
[2024-02-17 14:00] VITALS: BP 168/73; PULSE 68; RESP 18; O2SAT 98
[2024-02-17 14:21] VITALS: BP 148/88; PULSE 72; RESP 16; O2SAT 100
== END 2024-02-17 14:21 | disposition home or self-care (01) ==
PROVIDERS: PCP Nurse Practitioner Family; Visit Provider Nurse Practitioner Family
DX: M51.16 Intervertebral disc disorders with radiculopathy, lumbar region (principal)
CPT/HCPCS: 62370

== ENCOUNTER 2024-04-05 12:27 | Outpatient (CLI) | payer MEDICARE, SELFPAY ==
--- NOTE | 2024-04-05 12:32 | XR_ITS ---
FINAL REPORT CLINICAL HISTORY: Shortness of breath on exertion, cough COMPARISON: 04/22/2022 FINDINGS: PA and lateral views of the chest are obtained. The cardiac and mediastinal silhouettes are within normal limits. The lungs are clear. There is no pleural effusion, pneumothorax, or acute osseous abnormality. IMPRESSION: No radiographic evidence of acute cardiac or pulmonary disease, no change from prior exam. Reviewed, Interpreted and Dictated by Bobbi Clement MD Transcribed by Rebecca Breaux Authenticated and [facility]
== END 2024-04-05 23:59 | disposition home or self-care (01) ==
LOC: RAD 12:28
PROVIDERS: PCP Nurse Practitioner Family; Visit Provider Nurse Practitioner Family
DX: R05.1 Acute cough (principal); R06.02 Shortness of breath
CPT/HCPCS: 71046

== ENCOUNTER 2024-04-20 11:01 | Outpatient (CLI) | payer MEDICARE, SELFPAY ==
[2024-04-20 11:26] VITALS: BMI 49.5
[2024-04-20 11:30] LABS: Basophils # 0.1 K/mm3 (0-0.2); Basophils % 0.8 % (0.1-2.0); Eosinophils # 0.3 K/mm3 (0.0-0.4); Eosinophils % 3.1 % (0.1-12.0); Hematocrit 40.8 % (37.0-47.0); Hemoglobin 12.8 g/dL (12.2-16.2); Lymphocytes # 2.1 K/mm3 (0.7-4.5); Lymphocytes % 24.8 % (10-50); Mean Corpuscular HGB Conc 31.4 g/dL (31.8-35.4); Mean Corpuscular Hemoglobin 26.6 pg (27.0-31.2); Mean Corpuscular Volume 84.8 fl (81-99); Mean Platelet Volume 9.5 fl (7.4-10.4); Monocytes # 0.8 K/mm3 (0.1-1.0); Monocytes % 9.3 % (1.7-9.3); Neutrophils # 5.3 K/mm3 (1.8-7.8); Neutrophils % 61.8 % (37.0-80.0); Platelet Count 383 K/mm3 (142-424); Red Blood Count 4.81 M/mm3 (4.20-5.40); Red Cell Distribution Width 16.5 % (11.5-17.5); White Blood Count 8.6 K/mm3 (4.8-10.8)
[2024-04-20 13:27] LABS: Chloride 105 mmol/L (98-107); Potassium 4.1 mmoL/L (3.5-5.1); Sodium 137 mmol/L (136-145)
[2024-04-20 13:30] LABS: Anion Gap 11.1 mEq/L (5-15); Blood Urea Nitrogen 15 mg/dl (7-17); Calcium 8.9 mg/dl (8.4-10.2); Carbon Dioxide 25 mmol/L (22.0-30.0); Creatinine Clearance Estimated 74 mL/min (50-200); Estimated Glomerular Filt Rate 64 ml/min (>60); GFR (African American) 77 ML/MIN (>60); Glucose 91 mg/dl (74-100)
== END 2024-04-20 23:59 | disposition home or self-care (01) ==
LOC: PREOP 11:01
PROVIDERS: PCP Nurse Practitioner Family; Visit Provider Anesthesiology
DX: Z01.812 Encounter for preprocedural laboratory examination (principal)
CPT/HCPCS: 80048; 85025

== ENCOUNTER 2024-04-24 11:26 | Outpatient (CLI) | payer MEDICARE, SELFPAY ==
--- NOTE | 2024-04-24 11:28 | CA_ITS ---
APPROVED REPORT EXAM: Comprehensive 2D, Doppler, and color-flow Echocardiogram Instructional Technology Coach: ALEXANDRE Martínez, RVS Ht: 5 ft 11 in Wt: 363lbs BSA: 2.72 BP: 142/72 mmHg Indications: Pre-OP evaluation for spinal stimulator, CAD, Back pain, HTN, Ex-smoker Echo Enhancing Agent Comments: TDS due to body habitus- 2 technologist to scan 2D Dimensions LVDd 5.06 cm F: 3.9 - 5.3 LVEF (Visual) 65.00 % LVDs 3.25 cm F: 2.2 - 3.5 LA Volume 64.00 mL Left Atrium 4.01 cm F: 2.7 - 3.8 LA Volume Index 23.53 mL/m2 (M/F) 16-34 M-Mode Dimensions LA Diam 4.49 cm (1.9-4.0) EPSs 0.84 cm TAPSE 2.73 (<1.7) LV Diastology E Decel Time 213 (160-240 msec) E/A Ratio 0.90 MED A' 10.50 cm/s LAT A' 11.70 cm/s Aortic Valve STEFFANY Index 1.06 cm2/m2 AoV Peak Jairon. 126.0 (50-130 cm/s) AO Peak GR. 6.40 mmHg AO Mean GR. 3.20 (<5 mmHg) AO VTI 26.3 (18-25 cm) STEFFANY (VTI) 2.95 (2.5-4.5 cm2) Mitral Valve MV A Velocity 73.0 (40-130 cm/s) E/A Ratio 0.90 Tricuspid Valve TR P. Velocity 264.00 cm/s RAP Estimate 10.00 mmHg RVSP 38.00 mmHg Left Ventricle The left ventricle is normal size. The left ventricular systolic function is low normal. There is increased LV wall thickness. There is normal LV segmental wall motion. Diastolic function is indeterminate. LVEF is 50%. Right Ventricle The right ventricle is mildly dilated. The right ventricular systolic function is normal. Atria Left atrium is mildly dilated. Right atrium is mildly dilated. There is no Doppler evidence of interatrial shunt. Aortic Valve The ascending the aortic valve is mildly thickened. There is no aortic valvular stenosis. No aortic regurgitation is present. Mitral Valve The mitral valve is normal in structure. Trace mitral regurgitation. Tricuspid Valve Tricuspid valve is grossly normal in structure and function. Mild tricuspid regurgitation. RVSP is 25-30 mmHg. Pulmonic Valve The pulmonary valve is normal in structure. Trace pulmonic regurgitation. Great Vessels The aortic root is not well-visualized. IVC is normal in size and collapses >50% with inspiration. Pericardium There is no pericardial effusion. Other Information Study Quality: Technically Difficult Conclusion Technically difficult study due to poor acoustic windows. Low normal LV systolic function (LVEF 50%). Mildly dilated RV with normal RV function. Mild biatrial dilation. Mild TR. Electronically signed by : Bridgett Tom MD 04/24/2024 15:10:39
== END 2024-04-24 23:59 | disposition home or self-care (01) ==
LOC: RT 11:28
PROVIDERS: PCP Nurse Practitioner Family; Visit Provider Internal Medicine
DX: Z01.810 Encounter for preprocedural cardiovascular examination (principal); I51.7 Cardiomegaly; I36.1 Nonrheumatic tricuspid (valve) insufficiency; R06.02 Shortness of breath; I25.118 Atherosclerotic heart disease of native coronary artery with other forms of angina pectoris; G47.33 Obstructive sleep apnea (adult) (pediatric); E78.2 Mixed hyperlipidemia
CPT/HCPCS: 93306

== ENCOUNTER → 2024-04-27 08:27 | Day surgery (SDC) | payer MEDICARE, SELFPAY ==
--- NOTE | 2024-04-20 12:23 | PC.NURSE ---
Cardiology clearance requested per Valarie Lauren CRNA. Appt scheduled for 04/24. Pt notified, verbalized understanding. Bria Robert RN notified.
[2024-04-27] VITALS (11 sets, daily range): BP systolic 102–162; BP diastolic 57–89; PULSE 62–70; RESP 16–23; TEMP 36.1–36.3; O2SAT 93–99; BMI 49.5
--- NOTE | 2024-04-27 10:03 | P.PNANES_ITS ---
[facility] Disclaimer: The information contained in this section may have been updated after the patient was seen, as this information can be updated by other users. Medical History Encounter for pre-operative cardiovascular clearance Obstructive sleep apnea syndrome, severe Nasal septal spur GERD (gastroesophageal reflux disease) Deviated nasal septum Edema of both lower extremities History of 2019 novel coronavirus disease (COVID-19) Family history of lung cancer Stopped smoking with greater than 30 pack year history Lung nodule Asthma Migraine History of back pain History of gastroesophageal reflux (GERD) Congestive heart failure IBS (irritable bowel syndrome) Hyperlipidemia CAD (coronary artery disease) BRAULIO (obstructive sleep apnea) HTN (hypertension) Ex-smoker Morbid obesity Surgical History S/P insertion of intrathecal pump H/O bilateral salpingo-oophorectomy H/O: hysterectomy History of colonoscopy History of cholecystectomy Family History Other Breast cancer Colon cancer Family history of Alzheimer's disease Family history of COPD (chronic obstructive pulmonary disease) Family history of GERD Family history of TIAs Family history of acute congestive heart failure Family history of asthma Family history of diabetes mellitus type II Family history of hyperlipidemia Family history of hypertension Family history of hypothyroidism Family history of irritable bowel syndrome Family history of kidney stone Family history of migraine headaches Family history of myocardial infarction Heart disease Lung cancer Stroke Social History Smoking Status: Former smoker tobacco type: cigarettes packs per day: 1 years smoked: 20 smoking status stop date: 18 years ago alcohol intake: never substance use type: denies use current occupational status: unemployed and disabled Travel in the last 8 weeks: None household members: spouse and children housing: house lives independently: No marital status: current occupational exposures/hazards: No caffeine: Yes Have you lived/traveled outside [place] in past 30 days?: No Contact w/someone who lives/traveled outside US past 30 days?: No Exposure to someone with infectious disease in past 14 days?: Yes Do you have a fever (greater than 100.4 F or 38 C)?: No Have you tested positive for COVID-19: No Exposed to someone with COVID-19 in past 14 days?: No Do you have a sore throat?: No Do you have a cough?: No Do you have any weakness?: No Are you experiencing any nausea/vomitting?: No Do you have any diarrhea?: No Are you experiencing any unusual bleeding?: No Do you have any muscle aches/pain?: No Do you have any abdominal pain?: No Are you experiencing loss of taste or smell?: No [facility] Anesthesia Checklist Patient Identification Patient Identification: Arm Band and Family Structural Data Admitted From: Home Planned Operative Procedure/s: Pain pump replacement. Consent for Planned Operative Procedure(s) Verified: Yes Verified Documents: Surgical Consent and History and Physical NPO Status Verified Time NPO: 00:00 Additional verifications Patient : No Anesthesia Reactions: No Hx Blood Transfusions: No Blood Transfusion Reaction: No Cephalosporin Allergy: No Previous Colonoscopy: Yes Airway Assessment Mallampati Score:: Class II C-Spine Mobility Assessed: Yes TMJ Mobility Assessed: Yes Dentition: Good Dentition Neurological Assessment Level of Consciousness: Awake, Alert, Appropriate and Follows Commands Hx Seizures: No Numbness or tingling in extremities: No Anesthesia Plan Anesthesia Risk discussed: Yes ASA Class: III Anesthesia Type: MAC Preoperative Comments Pre-Operative Comments: 355 pounds. Hypertension. Hypothyroidism.
[2024-04-27] MEDS: VANCOMYCIN HCL 2,500 MG in 0.9 % SODIUM CHLORIDE 500 ML 250 MG IV (10:46)
[2024-04-27] MEDS: SODIUM CHLORIDE 0.9% 20ML VIAL 40 ML IV (11:11)
[2024-04-27] MEDS: GENTAMICIN 80 MG/2 ML VIAL (11:11)
[2024-04-27] MEDS: LIDOCAINE 1% W/EPI 1:100,000 20ML VIAL 40 ML (11:11)
--- NOTE | 2024-04-27 12:24 | EXP.ANES.I ---
[facility] Anesthesia Record Part I Anesthesia Record I Intake, IV Amount: 300 Hydration: Adequate Estimated blood loss (mL): 5 Urine output (mL): 0 Blood Products used (#): none Blood Pressure: 125/82 SaO2: 94 Pulse Rate: 70 Airway Patency: Patent Respiratory Rate: 23 Temperature: 97.3 F Patient is:: Drowsy and Stable Stable to PACU at:: 12:13
[2024-04-27] MEDS: MORPHINE 4MG/ML SYRINGE 4 MG (12:59)
--- NOTE | 2024-04-27 13:15 | P.OP_ITS ---
Date of procedure: 04/27/24 Pre-op Diagnosis:: Nonfunctioning intrathecal pain pump system Post-op Diagnosis:: Same Procedure performed:: Replacement pain pump system with new tunneled intrathecal catheter and replacement pain pump generator Surgeon:: Nilson Canchola MD EXCAVATING MACHINE OPERATOR:: Miguelito Menezes Anesthesia: MAC Estimated blood loss (mL): 5 Clinical Note:: This patient is a pleasant 58-year-old white female who we are treating for degenerative disease of lumbar spine with lumbar radiculopathy symptoms. She has a nonfunctioning Flowonix pain pump system in place. Her battery is also nearing end-of-life. We will replace her pain pump system today with a new tunneled intrathecal catheter and replacement of pain pump generator today. Operative findings:: None Operative note:: Informed consent was obtained risk and benefits of the procedure were explained the patient. The patient was taken to the operating room placed prone on the procedure table. She was prepped and draped in sterile fashion. C-arm fluoroscopy was used to view the generator and catheter. The skin and subtenons tissues overlying the pain pump generator were anesthetized using lidocaine. I made an incision dissected out the pain pump generator. The catheter was disconnected. It was tied off with 0 silk ties x 3. C-arm fluoroscopy was used to view the lumbar spine. The skin and subcutaneous tissues adjacent to the L4- 5 and L5-S1 interspace were anesthetized using lidocaine. I made an incision dissected down to the lumbar paraspinous fascia. A 17-gauge spinal needle was inserted and advanced into the L4-5 interspace until clear CSF was obtained. After this intrathecal catheter was inserted and advanced very easily to the T7 vertebral body. Catheter was found to be in good position it was posterior and midline. The catheter was secured to the fascia with an anchor device and 2-0 Prolene. I filled the pump with 20 mL of intrathecal hydromorphone 5 mg/mL. I tunneled catheter from the back to the generator pocket. I attached catheter to the pump. We are able to freely withdraw clear CSF through the sideport. The pump was then placed in the pocket with an antibiotic pouch. Both incisions were then closed with 2-0 Vicryl followed by 4-0 nylon and suzi. Patient tolerated the procedure well with no complications. Patient was placed in an abdominal binder. The pump was interrogated and started at 2 mg/day with PTM boluses of 0.2 mg up to 4 times a day with a 6-hour lockout. Refill date is 05/28/2024. Patient was discharged home neurologic intact with good relief of pain symptoms. Plan and disposition: Follow-up with this patient in 1 week for wound check and reprogramming. Will follow-up in 2 to 3 weeks for suture and staple removal Condition: stable Disposition: PACU Complications:: none
--- NOTE | 2024-04-27 15:21 | EXP.ANES.II ---
[facility] Anesthesia Record Part II Anesthesia Record Part II Discharge Time: 12:47 Destination: Surgical Day Care (OP Surgery) PACU nurse assessment reviewed?: Yes Patient Condition:: Good Anesthesia Complications:: None Swallowing reflex intact?: Yes Airway Patency: Patent Cyanosis?: No Blood Pressure: 162/89 SaO2: 98 Respiratory Rate: 16 Pulse Rate: 67 Temperature: 97.3 F Mental Status: Alert & Oriented Pain level:: 4 Nausea and/or vomitting:: None Intake, IV Amount: 0 Hydration: Adequate
== END | disposition home or self-care (01) ==
PROVIDERS: PCP Nurse Practitioner Family; Visit Provider Anesthesiology
DX: T85.695A Other mechanical complication of other nervous system device, implant or graft, initial encounter (principal)
CPT/HCPCS: 62350; 62362; 96374; C1755; C1772; J1100; J1580; J2250; J2270; J2405; J3010; J3370

== ENCOUNTER 2024-05-04 13:57 | Outpatient (POV) | payer MEDICARE, SELFPAY ==
[2024-05-04 14:02] VITALS: BP 150/94; PULSE 80; RESP 16; TEMP 36.6; O2SAT 96; BMI 50.2
--- NOTE | 2024-05-04 14:37 | P.PCN_ITS ---
Procedure Date: 05/04/24 Time: 14:37 Anesthesiologist:: Merly Ruiz APRN Complications:: None Pre-procedure Diagnosis:: Degenerative disc disease of lumbar spine with lumbar radiculopathy symptoms Post-procedure Diagnosis:: Same Indications for Procedure:: Patient is a pleasant 58-year-old female who presents today for 1 week postop of her intrathecal pump and catheter replacement on 04/27/2024. Today she rates her pain a 7 out of 10. She denies any new falls or injuries. Patient does feel like she definitely needs adjustment with the pump. Patient states that she also noticed that it was having more leakage starting yesterday. Patient does state that she has a lot going on that her father has dementia and did have a fall this morning as well as had issues with his colostomy. Patient is also raising her 2 grandkids. Patient is currently managed with Dilaudid 5 mg/mL with a daily dose of 2 mg/day. She denies any side effects. Her Andres has been reviewed and is appropriate. Physical Exam: General: Alert and oriented x3, no acute distress, pleasant and cooperative Lungs: Respirations even and unlabored, symmetrical chest expansion Eyes: PERRL Musculoskeletal: Flexion and extension of lumbar [spine] somewhat guarded secondary to pain, [antalgic gait noted] Neurological: Speech clear, no gross sensory deficit Skin: Incision sites are clean, dry, well-approximated with minimal erythema noted and sutures and suzi intact. Procedure Details:: Informed consent was obtained and the risk and benefits of the procedure were explained to the patient. Patient did have noninvasive monitoring was placed including noninvasive blood pressure cuff and pulse oximeter. Patient's pump was interrogated and was reprogrammed to Dilaudid 2.4004 mg/day. The patient tolerated the procedure well with no complications. Plan and Disposition:: Patient tolerated her intrathecal adjustment and reprogram with no complications. I did financial services counselor her that she is on the postop restrictions the full 6 weeks including no submerging in water until her incisions have fully healed, minimal bending, lifting or twisting and to continue to use her abdominal binder. Patient did have significant drainage noted on her abdominal binder however with palpation around her lateral incision there was no leakage. Patient does not have any signs or symptoms for infection. I have counseled her to continue to monitor this and call us if she has any difficulty. Patient was counseled that we will plan on having her back in 2 weeks for additional adjustment and reprogram as well as suture and staple removal with skin glue and Steri-Strips to be applied. Patient agrees with this plan of care. Patient was also counseled that where we did decrease her concentration for the negative Pap due to the fact that she is only getting a few weeks between her refills we will go ahead and submit for her Dilaudid to change the concentration back to 10 mg/mL. Patient agrees with this plan of care. We will plan on having this adjustment made at her next intrathecal refill. Patient tolerated the procedure well with no complications and was discharged neurologically intact. Patient has been instructed to contact the clinic with any concerns before the next appointment. Dr. Canchola has reviewed this note and agrees with this plan of care. This note was dictated using voice recognition software and make contain errors or omissions. -- It Is medically necessary for this patient to continue to have their intrathecal pump refilled at regular intervals. This patient had an intrathecal pain pump implanted after meeting criteria of chronic intractable pain for greater than 3 months and failing conservative treatments. Patient has committed and been compliant to the treatment plan and all planned follow up care. Since implantation of the intrathecal pain pump, the patient has had decreased pain and been more functional. Oral medications have been reduced including intake of oral opioids. Patient continues to do well with intrathecal therapy with decrease in pain symptoms and increase in functional status. Stopping intrathecal medications can lead to life threatening withdrawal, seizures, cardiac arrest, severe pain, and possible . Pumps that are not refilled at regular intervals can be damages and cause and need for replacement. We continually titrate dose and concentration to optimize pain relief and function. We are limited in concentration for certain drugs to safely deliver medications through the pump and stay within the recommendations from the Pol[employer] Committee Guidelines. Depending on dose and concentration these pumps may need to be refilled sooner than 3 months as we titrate. A UDS is needed to verify patient's compliance with our office pain contract. This is ordered based off specific treatments related to chronic pain with the potential to abuse certain medications.
== END 2024-05-04 23:59 | disposition home or self-care (01) ==
PROVIDERS: PCP Nurse Practitioner Family; Visit Provider Nurse Practitioner Family
DX: M51.16 Intervertebral disc disorders with radiculopathy, lumbar region (principal)
CPT/HCPCS: 62368; 99212; G0463

== ENCOUNTER 2024-05-18 13:48 | Outpatient (POV) | payer MEDICARE, SELFPAY ==
[2024-05-18 14:55] VITALS: BP 146/76; BP 148/75; PULSE 75; RESP 16; O2SAT 96; BMI 49.5
--- NOTE | 2024-05-18 15:08 | P.PCN_ITS ---
Procedure Date: 05/18/24 Time: 14:31 Anesthesiologist:: Merly Ruiz APRN Complications:: None Pre-procedure Diagnosis:: Degenerative disc disease of lumbar spine with lumbar radiculopathy symptoms Post-procedure Diagnosis:: Same Indications for Procedure:: Patient is a pleasant 58-year-old female who presents today for intrathecal adjustment and reprogram as well as still complains of her incision leaking. Patient does rate her pain today a 7 out of 10. She denies any new falls or i njuries. She does state that the incision will leak from time to time. She states it does vary when this does occur. She says it can be very random. Today she is having more drainage. Patient does state her shirt is wet. Patient is currently managed with Dilaudid 5 mg/mL with a daily dose of 2.4004 mg/day. She denies any side effects. She is asking for additional adjustment today. Her Andres has been reviewed and is appropriate. Physical Exam: General: Alert and oriented x3, no acute distress, pleasant and cooperative Lungs: Respirations even and unlabored, symmetrical chest expansion Eyes: PERRL Musculoskeletal: Flexion and extension of lumbar [spine] somewhat guarded secondary to pain, [antalgic gait noted] Neurological: Speech clear, no gross sensory deficit Skin: Incision sites are clean, well-approximated with mild erythema more prominent along the medial side of the incision, sutures and suzi intact Procedure Details:: Informed consent was obtained and the risk and benefits of the procedure were explained to the patient. Patient did have noninvasive monitoring was placed including noninvasive blood pressure cuff and pulse oximeter. Patient's pump was interrogated and was reprogrammed to Dilaudid 2.6387 mg/day. The patient tolerated the procedure well with no complications. Plan and Disposition:: Patient tolerated the procedure well with no complications and was discharged neurologically intact. Patient's incision is still having a good amount of drainage. I did add point tenderness along her incision and did not have any additional drainage during that time. I have counseled the patient that I would like to see her more frequently to monitor the progress. Patient agrees with this plan of care. We will take out the sutures today however all of her suzi remain intact. Patient was counseled that we will most likely keep the suzi in for a longer period of time in order to ensure that the incision will not open back up. Patient was counseled to call our office if she has additional issues with the pump patient was also counseled if it does continue to leak additionally and does not improve on the consistency it may be something that we have to look about going back in and doing additional interventions for her. Patient will return to clinic in 1 week. We will see the patient back in the clinic at the next intrathecal refill. Patient has been instructed to contact the clinic with any concerns before the next appointment. Dr. Canchola has reviewed this note and agrees with this plan of care. This note was dictated using voice recognition software and make contain errors or omissions. -- It Is medically necessary for this patient to continue to have their intrathecal pump refilled at regular intervals. This patient had an intrathecal pain pump implanted after meeting criteria of chronic intractable pain for greater than 3 months and failing conservative treatments. Patient has committed and been compliant to the treatment plan and all planned follow up care. Since implantation of the intrathecal pain pump, the patient has had decreased pain and been more functional. Oral medications have been reduced including intake of oral opioids. Patient continues to do well with intrathecal therapy with decrease in pain symptoms and increase in functional status. Stopping intrathecal medications can lead to life threatening withdrawal, seizures, cardiac arrest, severe pain, and possible . Pumps that are not refilled at regular intervals can be damages and cause and need for replacement. We continually titrate dose and concentration to optimize pain relief and function. We are limited in concentration for certain drugs to safely deliver medications through the pump and stay within the recommendations from the Polyanalges[employer] Consensus Committee Guidelines. Depending on dose and concentration these pumps may need to be refilled sooner than 3 months as we titrate. A UDS is needed to verify patient's compliance with our office pain contract. This is ordered based off specific treatments related to chronic pain with the potential to abuse certain medications.
== END 2024-05-18 23:59 | disposition home or self-care (01) ==
PROVIDERS: PCP Nurse Practitioner Family; Visit Provider Nurse Practitioner Family
DX: M51.16 Intervertebral disc disorders with radiculopathy, lumbar region (principal)
CPT/HCPCS: 62368; 99212; 99213; G0463

== ENCOUNTER 2024-05-21 08:40 | Outpatient (POV) | payer MEDICARE, SELFPAY ==
[2024-05-21 09:05] VITALS: BP 140/93; BP 143/86; PULSE 80; RESP 16; O2SAT 98; BMI 49.9
--- NOTE | 2024-05-21 09:07 | A.OFFVIS_ITS ---
[facility] Disclaimer: The information contained in this section may have been updated after the patient was seen, as this information can be updated by other users. Medical History (Updated 05/21/24 @ 09:10 by Merly Ruiz APRN) Encounter for pre-operative cardiovascular clearance Obstructive sleep apnea syndrome, severe Nasal septal spur GERD (gastroesophageal reflux disease) Deviated nasal septum Edema of both lower extremities History of 2019 novel coronavirus disease (COVID-19) Family history of lung cancer Stopped smoking with greater than 30 pack year history Lung nodule Asthma Migraine History of back pain History of gastroesophageal reflux (GERD) Congestive heart failure IBS (irritable bowel syndrome) Hyperlipidemia CAD (coronary artery disease) BRAULIO (obstructive sleep apnea) HTN (hypertension) Ex-smoker Morbid obesity Surgical History S/P insertion of intrathecal pump H/O bilateral salpingo-oophorectomy H/O: hysterectomy History of colonoscopy History of cholecystectomy Family History Other Breast cancer Colon cancer Family history of Alzheimer's disease Family history of COPD (chronic obstructive pulmonary disease) Family history of GERD Family history of TIAs Family history of acute congestive heart failure Family history of asthma Family history of diabetes mellitus type II Family history of hyperlipidemia Family history of hypertension Family history of hypothyroidism Family history of irritable bowel syndrome Family history of kidney stone Family history of migraine headaches Family history of myocardial infarction Heart disease Lung cancer Stroke Social History Smoking Status: Former smoker tobacco type: cigarettes packs per day: 1 years smoked: 20 smoking status stop date: 18 years ago alcohol intake: never substance use type: denies use current occupational status: other Travel in the last 8 weeks: None household members: spouse and children housing: house lives independently: No marital status: current occupational exposures/hazards: No caffeine: Yes PM Subjective & Objective Subjective Subjective:: Patient is a pleasant 58-year-old female who presents today for follow-up. Patient was just in our clinic last week due to continued leakage around her pump replacement. Today she does rate her pain at 3 out of 10. She does state that the intrathecal increase we did last week did seem to help. Patient states that she has not had the drainage like what she did last week since. She does make mention that at 1 point she did feel like it was burning a little around the incision. Patient states that she does continue to keep it covered. Patient does have Dilaudid 5 mg/mL with a daily dose of 2.6387 mg/day. She denies any side effects from this medication. Her Andres has been reviewed. Review of Systems: General: No recent weight changes, no fever, no sleep disturbances Respiratory: No cough, no shortness of air, no recurring pulmonary infections Cardiovascular/peripheral vascular: No chest pain, no palpitations, no edema, no shortness of breath Gastrointestinal: No new onset incontinence, normal bowel movements reported Genitourinary: No new onset incontinence Musculoskeletal: Low back pain Psychiatric: [Normal mood/affect] Neurological: [Denies weakness in extremities], [denies balance issues] Pain at rest (0-10 scale): 3 Objective Objective:: Physical Exam: General: Alert and oriented x3, no acute distress, pleasant and cooperative Lungs: Respirations even and unlabored, symmetrical chest expansion Eyes: PERRL Musculoskeletal: Flexion and extension of lumbar [spine] somewhat guarded secondary to pain, [antalgic gait noted] Neurological: Speech clear, no gross sensory deficit Skin: Incision site is clean, dry with suzi intact, moderate erythema noted with warmth Has patient had previous pain injection?: No Conservative treatment options previously tried: Home exercise plan Length of treatment: Longer than 12 weeks Meds Home Medications and Allergies Home Medications ?Medication ?Instructions ?Recorded ?Confirmed ?Type latanoprost 0.005 % eye drops 1 drp Eye-Both DAILY 06/28/23 05/21/24 History omeprazole 20 mg capsule,delayed 20 mg PO BID gerd #60 caps 06/28/23 05/21/24 Rx release ropinirole 0.5 mg tablet See Rx Instructions .Route 12/06/23 05/21/24 Rx .COMPLEX 30 days #30 tabs azelastine 137 mcg (0.1 %) nasal 1 - 2 spray intranasal BID PRN 04/04/24 05/21/24 History spray Asthma brimonidine 0.2 % eye drops 1 drp Eye-Both DAILY 04/04/24 05/21/24 History cetirizine 10 mg tablet 10 mg PO DAILY 04/04/24 05/21/24 History dorzolamide 2 % eye drops 1 drp Eye-Both DAILY 04/04/24 05/21/24 History fluticasone propionate 110 110 mcg inhalation DAILY 04/04/24 05/21/24 History mcg/actuation HFA aerosol inhaler fluticasone propionate 50 1 - 2 spray intranasal DAILY 04/04/24 05/21/24 History mcg/actuation nasal spray,suspension multivitamin 1 tab PO DAILY 04/20/24 05/21/24 History zinc 10 mg tablet 10 mg PO DAILY 04/20/24 05/21/24 History sulfamethoxazole 800 1 tab PO BID #14 tabs 04/27/24 05/21/24 Rx mg-trimethoprim 160 mg tablet (Bactrim DS) levothyroxine 125 mcg tablet See Rx Instructions .Route 04/30/24 05/21/24 Rx .COMPLEX #30 tabs losartan 50 mg tablet See Rx Instructions .Route 05/01/24 05/21/24 Rx .COMPLEX #30 tabs sulfamethoxazole 800 1 tab PO BID #20 tabs 05/21/24 Rx mg-trimethoprim 160 mg tablet New Prescriptions to Start Prescriptions: sulfamethoxazole-trimethoprim Merly Ruiz Allergies Allergy/AdvReac Type Severity Reaction Status Date / Time Penicillins Allergy Hives Verified 04/27/24 09:02 topiramate (From Topamax) Allergy Rash Verified 04/27/24 09:02 Assessment and Plan *Assessment and plan (1) Degenerative disc disease: Status: Acute Category: Medical (2) Chronic pain: Status: Acute Category: Medical Code(s): G89.29 - Other chronic pain Plan I did discuss at length with the patient due to the fact there is increased warmth and erythema all around the incision and does expand outward that we will take precautions and put her on an antibiotic. Patient was counseled that it could be related to the drainage that she was experiencing last Tuesday and having that up against her skin. I will send in Bactrim twice daily for 10 days. Patient did have a possible interaction with her losartan and she was confirmed that she has had the Bactrim before with no side effects. Patient was counseled we will not be removing any suzi during today's visit and then I will have her return to clinic in 1 week. Patient was also counseled to continue her postop restrictions. Patient was counseled to continue to monitor this incision for any worsening symptoms. Patient was counseled if there is anything concerning to not hesitate whatsoever to go to the ER for evaluation. Patient agrees with this plan of care. Patient was also counseled to call us with anything she needs between now and next week. We did take a photo on the patient's personal cell phone in order to compare at next week's appointment. Patient will return to clinic in 1 week for reevaluation of symptoms and plan of care. Patient has been instructed to contact the clinic with any concerns before the next appointment. Dr. Canchola has reviewed this note and agrees with this plan of care. This note was dictated using voice recognition software and make contain errors or omissions. -- It Is medically necessary for this patient to continue to have their intrathecal pump refilled at regular intervals. This patient had an intrathecal pain pump implanted after meeting criteria of chronic intractable pain for greater than 3 months and failing conservative treatments. Patient has committed and been compliant to the treatment plan and all planned follow up care. Since implantation of the intrathecal pain pump, the patient has had decreased pain and been more functional. Oral medications have been reduced including intake of oral opioids. Patient continues to do well with intrathecal therapy with decrease in pain symptoms and increase in functional status. Stopping intrathecal medications can lead to life threatening withdrawal, seizures, cardiac arrest, severe pain, and possible . Pumps that are not refilled at regular intervals can be damages and cause and need for replacement. We continually titrate dose and concentration to optimize pain relief and function. We are limited in concentration for certain drugs to safely deliver medications through the pump and stay within the recommendations from the Polyanalges[employer] Consensus Committee Guidelines. Depending on dose and concentration these pumps may need to be refilled sooner than 3 months as we titrate. A UDS is needed to verify patient's compliance with our office pain contract. This is ordered based off specific treatments related to chronic pain with the potential to abuse certain medications.
== END 2024-05-21 23:59 | disposition home or self-care (01) ==
PROVIDERS: PCP Nurse Practitioner Family; Visit Provider Nurse Practitioner Family
DX: G89.29 Other chronic pain (principal); M51.16 Intervertebral disc disorders with radiculopathy, lumbar region; Z87.891 Personal history of nicotine dependence
CPT/HCPCS: 99212; G0463

== ENCOUNTER 2024-05-25 09:47 | Day surgery (SDC) | payer MEDICARE, SELFPAY ==
--- NOTE | 2024-05-25 09:51 | EXP.PAIN.PRO ---
Procedure Date: 05/25/24 Time: 10:20 Anesthesiologist:: Merly Ruiz APRN Complications:: None Pre-procedure Diagnosis:: Degenerative disc disease of lumbar spine with lumbar radiculopathy symptoms Post-procedure Diagnosis:: Same Indications for Procedure:: Patient is a pleasant 58-year-old female who presents today for intrathecal refill and reprogram. Today she rates her pain a 1 out of 10. She states overall she is doing really well with her last increase in her pump. Patient has been taking the Bactrim antibiotic for her lower right lateral incision. She denies any side effects to the antibiotic and does feel like it does seem like it is improving. Patient is currently managed with Dilaudid 5 mg/mL with a daily dose of 2.6387 mg/day.She denies any side effects. Her Andres has been reviewed and is appropriate. Physical Exam: General: Alert and oriented x3, no acute distress, pleasant and cooperative Lungs: Respirations even and unlabored, symmetrical chest expansion Eyes: PERRL Musculoskeletal: Flexion and extension of lumbar [spine] somewhat guarded secondary to pain, [antalgic gait noted] Neurological: Speech clear, no gross sensory deficit Skin: Midline incision site is clean, dry, well-approximated with 3 suzi intact; lateral right incision has mild erythema, well-approximated with suzi intact Procedure Details:: Informed consent was obtained and the risk and benefits of the procedure were explained to the patient. The patient had noninvasive monitoring placed including noninvasive blood pressure cuff and pulse oximeter. Patient's pump was interrogated. The area over the pump was cleansed with chlorhexidine as a cleansing solution. In sterile fashion the pump was accessed with a 22-gauge needle. Approximately 5 mls of the pump solution was removed and discarded appropriately. The pump was then refilled with 20 mL's of Dilaudid 10 mg/mL. The needle was withdrawn and a bandage was placed over the puncture site. The infusion rate was reprogrammed and continued at its current rate. The patient tolerated well with no complication. Plan and Disposition:: Patient tolerated the procedure well with no complications and was discharged neurologically intact. Patient was counseled to continue her postop restrictions the full 6 weeks. Patient's incision does look better today than it had previously at our last appointment on Tuesday. Patient is still on her 10-day dose of Bactrim. I did discuss with her during today's intrathecal refill that I was able to express some of the serous drainage all along the medial aspect of the lateral incision. We will leave all those suzi intact. Patient was able to have her midline incision suzi removed with skin glue and Steri-Strip applied. Patient did have a concentration change to 10 mg/mL today. I did discuss with the patient that during this timeframe she will have a bridge bolus where she will be unable to use her bolus device. Patient acknowledges understanding and agrees with plan of care. Patient will be giving 2 appointment dates 1 for next to follow-up on the lateral incision progression and 1 for her next pump refill. Patient will return to clinic on or before their next intrathecal refill date. We will see the patient back in the clinic at the next intrathecal refill. Patient has been instructed to contact the clinic with any concerns before the next appointment. Dr. Canchola has reviewed this note and agrees with this plan of care. This note was dictated using voice recognition software and make contain errors or omissions. -- It Is medically necessary for this patient to continue to have their intrathecal pump refilled at regular intervals. This patient had an intrathecal pain pump implanted after meeting criteria of chronic intractable pain for greater than 3 months and failing conservative treatments. Patient has committed and been compliant to the treatment plan and all planned follow up care. Since implantation of the intrathecal pain pump, the patient has had decreased pain and been more functional. Oral medications have been reduced including intake of oral opioids. Patient continues to do well with intrathecal therapy with decrease in pain symptoms and increase in functional status. Stopping intrathecal medications can lead to life threatening withdrawal, seizures, cardiac arrest, severe pain, and possible . Pumps that are not refilled at regular intervals can be damages and cause and need for replacement. We continually titrate dose and concentration to optimize pain relief and function. We are limited in concentration for certain drugs to safely deliver medications through the pump and stay within the recommendations from the Polyanalgesic Consensus Committee Guidelines. Depending on dose and concentration these pumps may need to be refilled sooner than 3 months as we titrate. A UDS is needed to verify patient's compliance with our office pain contract. This is ordered based off specific treatments related to chronic pain with the potential to abuse certain medications.
[2024-05-25 10:00] VITALS: BP 155/87; PULSE 71; RESP 16; TEMP 36.8; O2SAT 96; BMI 49.5
[2024-05-25 10:09] VITALS: BP 137/71; PULSE 71; RESP 18; O2SAT 98
[2024-05-25 10:11] VITALS: BP 137/71; PULSE 71; RESP 18; O2SAT 98
[2024-05-25 10:35] VITALS: BP 151/94; PULSE 69; RESP 16; O2SAT 97
== END 2024-05-25 10:35 | disposition home or self-care (01) ==
PROVIDERS: PCP Nurse Practitioner Family; Visit Provider Nurse Practitioner Family
DX: M51.16 Intervertebral disc disorders with radiculopathy, lumbar region (principal)
CPT/HCPCS: 62370

== ENCOUNTER 2024-05-31 09:29 | Outpatient (POV) | payer MEDICARE, SELFPAY ==
--- NOTE | 2024-05-31 09:52 | A.OFFVIS_ITS ---
[facility] Disclaimer: The information contained in this section may have been updated after the patient was seen, as this information can be updated by other users. Medical History Encounter for pre-operative cardiovascular clearance Obstructive sleep apnea syndrome, severe Nasal septal spur GERD (gastroesophageal reflux disease) Deviated nasal septum Edema of both lower extremities History of 2019 novel coronavirus disease (COVID-19) Family history of lung cancer Stopped smoking with greater than 30 pack year history Lung nodule Asthma Migraine History of back pain History of gastroesophageal reflux (GERD) Congestive heart failure IBS (irritable bowel syndrome) Hyperlipidemia CAD (coronary artery disease) BRAULIO (obstructive sleep apnea) HTN (hypertension) Ex-smoker Morbid obesity Surgical History S/P insertion of intrathecal pump H/O bilateral salpingo-oophorectomy H/O: hysterectomy History of colonoscopy History of cholecystectomy Family History Other Breast cancer Colon cancer Family history of Alzheimer's disease Family history of COPD (chronic obstructive pulmonary disease) Family history of GERD Family history of TIAs Family history of acute congestive heart failure Family history of asthma Family history of diabetes mellitus type II Family history of hyperlipidemia Family history of hypertension Family history of hypothyroidism Family history of irritable bowel syndrome Family history of kidney stone Family history of migraine headaches Family history of myocardial infarction Heart disease Lung cancer Stroke Social History Smoking Status: Former smoker tobacco type: cigarettes packs per day: 1 years smoked: 20 smoking status stop date: 18 years ago alcohol intake: never substance use type: denies use current occupational status: other Travel in the last 8 weeks: None household members: spouse and children housing: house lives independently: No marital status: current occupational exposures/hazards: No caffeine: Yes PM Subjective & Objective Subjective Subjective:: Patient is a pleasant 58-year-old female who presents today for 1 week follow- up. Today she rates her pain a 0 out of 10. She denies any new trauma or injury. She does state that the lateral incision is still draining a little bit but definitely not like what it was and does feel like it looks a lot better. Patient has completed her antibiotics. She does state that our last increase did seem to help and that she is not having any additional pain. Patient is currently managed with Dilaudid 10 mg/mL with a daily dose of 2.6387 mg/day. She denies any side effects. Her Andres has been reviewed and is appropriate. Review of Systems: General: No recent weight changes, no fever, no sleep disturbances Respiratory: No cough, no shortness of air, no recurring pulmonary infections Cardiovascular/peripheral vascular: No chest pain, no palpitations, no edema, no shortness of breath Gastrointestinal: No new onset incontinence, normal bowel movements reported Genitourinary: No new onset incontinence Musculoskeletal: Low back pain Psychiatric: [Normal mood/affect] Neurological: [Denies weakness in extremities], [denies balance issues] Pain at rest (0-10 scale): 0 Objective Objective:: Physical Exam: General: Alert and oriented x3, no acute distress, pleasant and cooperative Lungs: Respirations even and unlabored, symmetrical chest expansion Eyes: PERRL Musculoskeletal: Flexion and extension of lumbar [spine] somewhat guarded secondary to pain, [antalgic gait noted] Neurological: Speech clear, no gross sensory deficit Skin: Lateral incision is clean, dry, well-approximated with suzi intact, minimal erythema noted Has patient had previous pain injection?: No Conservative treatment options previously tried: Home exercise plan Length of treatment: Longer than 12 weeks Meds Home Medications and Allergies Home Medications ?Medication ?Instructions ?Recorded ?Confirmed ?Type latanoprost 0.005 % eye drops 1 drp Eye-Both DAILY 06/28/23 05/25/24 History omeprazole 20 mg capsule,delayed 20 mg PO BID gerd #60 caps 06/28/23 05/25/24 Rx release ropinirole 0.5 mg tablet See Rx Instructions .Route 12/06/23 05/25/24 Rx .COMPLEX 30 days #30 tabs azelastine 137 mcg (0.1 %) nasal 1 - 2 spray intranasal BID PRN 04/04/24 05/25/24 History spray Asthma brimonidine 0.2 % eye drops 1 drp Eye-Both DAILY 04/04/24 05/25/24 History cetirizine 10 mg tablet 10 mg PO DAILY 04/04/24 05/25/24 History dorzolamide 2 % eye drops 1 drp Eye-Both DAILY 04/04/24 05/25/24 History fluticasone propionate 110 110 mcg inhalation DAILY 04/04/24 05/25/24 History mcg/actuation HFA aerosol inhaler fluticasone propionate 50 1 - 2 spray intranasal DAILY 04/04/24 05/25/24 History mcg/actuation nasal spray,suspension multivitamin 1 tab PO DAILY 04/20/24 05/25/24 History zinc 10 mg tablet 10 mg PO DAILY 04/20/24 05/25/24 History sulfamethoxazole 800 1 tab PO BID #14 tabs 04/27/24 05/25/24 Rx mg-trimethoprim 160 mg tablet (Bactrim DS) levothyroxine 125 mcg tablet See Rx Instructions .Route 04/30/24 05/25/24 Rx .COMPLEX #30 tabs losartan 50 mg tablet See Rx Instructions .Route 05/01/24 05/25/24 Rx .COMPLEX #30 tabs sulfamethoxazole 800 1 tab PO BID #20 tabs 05/21/24 05/25/24 Rx mg-trimethoprim 160 mg tablet New Prescriptions to Start Prescriptions: Allergies Allergy/AdvReac Type Severity Reaction Status Date / Time Penicillins Allergy Hives Verified 04/27/24 09:02 topiramate (From Topamax) Allergy Rash Verified 04/27/24 09:02 Assessment and Plan *Assessment and plan (1) Degenerative disc disease: Status: Acute Category: Medical Plan Patient's incision is looking much better following her 10-day course of Bactrim. Patient's incision along the medial aspect was palpated with no drainage noted. Patient was able to have the remainder suzi removed with skin glue and Steri-Strips applied. Patient was counseled to continue to monitor this incision and that if she has any questions or concerns for additional infection rest of please reach out as soon as possible. Patient was counseled to continue her 6-week postop restrictions including minimal bending, lifting or twisting, no submerging in water until her incisions are fully healed and to continue to use her abdominal binder from time to time to prevent seroma formation. Patient will return to clinic in 2 weeks for reevaluation of symptoms and plan of care. Patient has been instructed to contact the clinic with any concerns before the next appointment. Dr. Canchola has reviewed this note and agrees with this plan of care. This note was dictated using voice recognition software and make contain errors or omissions. All injections are used with Lidocaine, Bupivacaine and Depo Medrol. Occasionally urine drug screen is needed to verify patient's compliance with our office pain contract. This is ordered based off specific treatments related to chronic pain with the potential to abuse certain medications.
[2024-05-31 10:17] VITALS: BP 129/76; PULSE 71; RESP 14; O2SAT 98; BMI 48.6
== END 2024-05-31 23:59 | disposition home or self-care (01) ==
PROVIDERS: PCP Nurse Practitioner Family; Visit Provider Nurse Practitioner Family
DX: M51.16 Intervertebral disc disorders with radiculopathy, lumbar region (principal); Z87.891 Personal history of nicotine dependence
CPT/HCPCS: 99212; G0463

== ENCOUNTER 2024-06-14 10:05 | Outpatient (POV) | payer MEDICARE, SELFPAY ==
--- NOTE | 2024-06-14 10:47 | P.PCN_ITS ---
Procedure Date: 06/14/24 Time: 10:32 Anesthesiologist:: Merly Ruiz APRN Complications:: None Pre-procedure Diagnosis:: Degenerative disc disease of lumbar spine with lumbar radiculopathy symptoms Post-procedure Diagnosis:: Same Indications for Procedure:: Patient is a pleasant 58-year-old female who presents today for follow-up. Today she rates her pain a 5 out of 10. She denies any new falls or injuries from her last appointment. She does state that her incision has now healed up and is doing much better from her pump replacement. Patient is currently managed with Dilaudid 10 mg/mL with a daily dose of 2.639 mg/day. Patient is asking if we can do a small adjustment. Her Andres has been reviewed and is appropriate. Physical Exam: General: Alert and oriented x3, no acute distress, pleasant and cooperative Lungs: Respirations even and unlabored, symmetrical chest expansion Eyes: PERRL Musculoskeletal: Flexion and extension of lumbar [spine] somewhat guarded secondary to pain, [antalgic gait noted] Neurological: Speech clear, no gross sensory deficit Procedure Details:: Informed consent was obtained and the risk and benefits of the procedure were explained to the patient. Patient did have noninvasive monitoring was placed including noninvasive blood pressure cuff and pulse oximeter. Patient's pump was interrogated and was reprogrammed to Dilaudid 3.165 mg/day. The patient tolerated the procedure well with no complications. Plan and Disposition:: Patient tolerated the procedure well with no complications and was discharged neurologically intact. Patient will return to clinic on or before their next intrathecal refill date. We will see the patient back in the clinic at the next intrathecal refill. Patient has been instructed to contact the clinic with any concerns before the next appointment. Dr. Canchola has reviewed this note and agrees with this plan of care. This note was dictated using voice recognition software and make contain errors or omissions. -- It Is medically necessary for this patient to continue to have their intrathecal pump refilled at regular intervals. This patient had an intrathecal pain pump implanted after meeting criteria of chronic intractable pain for greater than 3 months and failing conservative treatments. Patient has committed and been compliant to the treatment plan and all planned follow up care. Since implan tation of the intrathecal pain pump, the patient has had decreased pain and been more functional. Oral medications have been reduced including intake of oral opioids. Patient continues to do well with intrathecal therapy with decrease in pain symptoms and increase in functional status. Stopping intrathecal medications can lead to life threatening withdrawal, seizures, cardiac arrest, severe pain, and possible . Pumps that are not refilled at regular intervals can be damages and cause and need for replacement. We continually titrate dose and concentration to optimize pain relief and function. We are limited in concentration for certain drugs to safely deliver medications through the pump and stay within the recommendations from the Polyanalgesic Consensus Committee Guidelines. Depending on dose and concentration these pumps may need to be refilled sooner than 3 months as we titrate. A UDS is needed to verify patient's compliance with our office pain contract. This is ordered based off specific treatments related to chronic pain with the potential to abuse certain medications.
[2024-06-14 11:45] VITALS: BP 136/73; PULSE 75; RESP 14; O2SAT 96; BMI 51.5
== END 2024-06-14 23:59 | disposition home or self-care (01) ==
PROVIDERS: PCP Nurse Practitioner Family; Visit Provider Nurse Practitioner Family
DX: M51.16 Intervertebral disc disorders with radiculopathy, lumbar region (principal)
CPT/HCPCS: 62368; 99212; 99213; G0463

== ENCOUNTER 2024-06-26 12:17 | Outpatient (CLI) | payer MEDICARE, SELFPAY ==
[2024-06-26 15:20] LABS: Coronavirus 19, PCR Not Detected (NotDetected); Influenza A, PCR Not Detected (NotDetected); Influenza B, PCR Not Detected (NotDetected)
== END 2024-06-26 23:59 | disposition home or self-care (01) ==
LOC: LAB.DROPOF 06-28 12:18
PROVIDERS: PCP Nurse Practitioner Family; Visit Provider Student in an Organized Health Care Education/Training Program
DX: R52 Pain, unspecified (principal); B34.9 Viral infection, unspecified; Z20.828 Contact with and (suspected) exposure to other viral communicable diseases; Z20.822 Contact with and (suspected) exposure to COVID-19
CPT/HCPCS: 87636

== ENCOUNTER 2024-06-29 14:11 | Day surgery (SDC) | payer MEDICARE, SELFPAY ==
--- NOTE | 2024-06-29 14:18 | EXP.HP ---
History of Present Illness *Admission Date: 06/29/24 *Reason for visit:: Intrathecal refill; DDD *History of present illness: Degenerative disc disease [facility] Disclaimer: The information contained in this section may have been updated after the patient was seen, as this information can be updated by other users. Medical History Encounter for pre-operative cardiovascular clearance Obstructive sleep apnea syndrome, severe Nasal septal spur GERD (gastroesophageal reflux disease) Deviated nasal septum Edema of both lower extremities History of 2019 novel coronavirus disease (COVID-19) Family history of lung cancer Stopped smoking with greater than 30 pack year history Lung nodule Asthma Migraine History of back pain History of gastroesophageal reflux (GERD) Congestive heart failure IBS (irritable bowel syndrome) Hyperlipidemia CAD (coronary artery disease) BRAULIO (obstructive sleep apnea) HTN (hypertension) Ex-smoker Morbid obesity Surgical History S/P insertion of intrathecal pump H/O bilateral salpingo-oophorectomy H/O: hysterectomy History of colonoscopy History of cholecystectomy Family History Other Breast cancer Colon cancer Family history of Alzheimer's disease Family history of COPD (chronic obstructive pulmonary disease) Family history of GERD Family history of TIAs Family history of acute congestive heart failure Family history of asthma Family history of diabetes mellitus type II Family history of hyperlipidemia Family history of hypertension Family history of hypothyroidism Family history of irritable bowel syndrome Family history of kidney stone Family history of migraine headaches Family history of myocardial infarction Heart disease Lung cancer Stroke Social History Smoking Status: Former smoker tobacco type: cigarettes packs per day: 1 years smoked: 20 smoking status stop date: 18 years ago alcohol intake: never substance use type: denies use current occupational status: other Travel in the last 8 weeks?: None household members: spouse and children housing: house lives independently: No marital status: current occupational exposures/hazards: No caffeine: Yes Have you lived/traveled outside [place] in past 30 days?: No Contact w/someone who lives/traveled outside [place] past 30 days?: No Exposure to someone with infectious disease in past 14 days?: No Do you have a fever (greater than 100.4 F or 38 C)?: No Have you tested positive for COVID-19?: No Exposed to someone with COVID-19 in past 14 days?: No Do you have a sore throat?: No Do you have a cough?: No Do you have any weakness?: No Do you have any diarrhea?: No Are you experiencing any unusual bleeding?: No Do you have any muscle aches/pain?: No Do you have any abdominal pain?: No Are you experiencing loss of taste or smell?: No Other Medical History Have you received the Flu Vaccine for this season: Yes Have you received the Pneumonia Vaccine: Yes Review of Systems Review of Systems Review of systems:: pertinent systems reviewed and negative unless documented below Review of systems (narrative): Review of Systems: General: No recent weight changes, no fever, no sleep disturbances Respiratory: No cough, no shortness of air, no recurring pulmonary infections Cardiovascular/peripheral vascular: No chest pain, no palpitations, no edema, no shortness of breath Gastrointestinal: No new onset incontinence, normal bowel movements reported Genitourinary: No new onset incontinence Musculoskeletal: Chronic back pain Psychiatric: [Normal mood/affect] Neurological: [Denies weakness in extremities], [denies balance issues] Meds Home Medications and Allergies Home Medications ?Medication ?Instructions ?Recorded ?Confirmed ?Type latanoprost 0.005 % eye drops 1 drp Eye-Both DAILY 06/28/23 06/26/24 History omeprazole 20 mg capsule,delayed 20 mg PO BID gerd #60 caps 06/28/23 06/26/24 Rx release ropinirole 0.5 mg tablet See Rx Instructions .Route 12/06/23 06/26/24 Rx .COMPLEX 30 days #30 tabs azelastine 137 mcg (0.1 %) nasal 1 - 2 spray intranasal BID PRN 04/04/24 06/26/24 History spray Asthma brimonidine 0.2 % eye drops 1 drp Eye-Both DAILY 04/04/24 06/26/24 History cetirizine 10 mg tablet 10 mg PO DAILY 04/04/24 06/26/24 History dorzolamide 2 % eye drops 1 drp Eye-Both DAILY 04/04/24 06/26/24 History fluticasone propionate 110 110 mcg inhalation DAILY 04/04/24 06/26/24 History mcg/actuation HFA aerosol inhaler fluticasone propionate 50 1 - 2 spray intranasal DAILY 04/04/24 06/26/24 History mcg/actuation nasal spray,suspension multivitamin 1 tab PO DAILY 04/20/24 06/26/24 History zinc 10 mg tablet 10 mg PO DAILY 04/20/24 06/26/24 History sulfamethoxazole 800 1 tab PO BID #14 tabs 04/27/24 06/26/24 Rx mg-trimethoprim 160 mg tablet (Bactrim DS) sulfamethoxazole 800 1 tab PO BID #20 tabs 05/21/24 06/26/24 Rx mg-trimethoprim 160 mg tablet levothyroxine 125 mcg tablet See Rx Instructions .Route 06/20/24 06/26/24 Rx .COMPLEX #30 tabs losartan 50 mg tablet See Rx Instructions .Route 06/20/24 06/26/24 Rx .COMPLEX #30 tabs ondansetron 4 mg disintegrating 4 mg PO Q8H PRN nausea and 06/26/24 06/26/24 Rx tablet vomiting #7 tabs New Prescriptions to Start Prescriptions: Allergies Allergy/AdvReac Type Severity Reaction Status Date / Time Penicillins Allergy Hives Verified 06/26/24 10:06 topiramate (From Topamax) Allergy Rash Verified 06/26/24 10:06 Exam Constitutional Constitutional: no acute distress *Routine HEENT Exam Head: Present normocephalic and atraumatic Eye: Present PERRL ENT: Present mucous membranes moist *Routine Neck Exam Neck: Present supple *Routine Respiratory Exam Respiratory: Present CTA bilaterally *Routine Cardiovascular Exam Cardiovascular: Present RRR *Routine Abdominal Exam Abdominal: Present soft *Routine Rectal Exam Rectal:: deferred *Routine Genitalia Exam Genitalia:: normal female Routine Back/Spine/Pelvis Exam Back/Spine: Present pain with flexion *Routine Skin Exam Skin: Present intact, dry and warm *Routine Neurological Exam Neurological: Present alert and oriented X3 Routine Psychiatric Exam Psychiatric: Present normal affect and normal thought process Assessment and Plan *Assessment and plan (1) Degenerative disc disease: Status: Acute Category: Medical Plan Patient has been instructed to contact the clinic with any concerns before the next appointment. Dr. Canchola has reviewed this note and agrees with this plan of care. This note was dictated using voice recognition software and make contain errors or omissions. All injections are used with Lidocaine, Bupivacaine and dexamethasone. Occasionally urine drug screen is needed to verify patient's compliance with our office pain contract. This is ordered based off specific treatments related to chronic pain with the potential to abuse certain medications.
[2024-06-29 14:19] VITALS: BP 131/62; PULSE 74; RESP 16; O2SAT 94; BMI 47.5
--- NOTE | 2024-06-29 14:19 | EXP.PAIN.PRO ---
Procedure Date: 06/29/24 Time: 15:20 Anesthesiologist:: Merly Ruiz APRN Complications:: None Pre-procedure Diagnosis:: Degenerative disc disease of lumbar spine, chronic pain syndrome Post-procedure Diagnosis:: Same Indications for Procedure:: Patient is a pleasant 58-year-old female who presents today for intrathecal refill and reprogram. She rates her pain today an 8 out of 10. She states over the last couple days that she has been more severe. Patient is unsure if the weather is playing a role in it. Patient is currently managed with Dilaudid 10 mg/mL with a daily dose of Dilaudid 3.165 mg/day. She denies any side effects. Her Andres has been reviewed and is appropriate. Physical Exam: General: Alert and oriented x3, no acute distress, pleasant and cooperative Lungs: Respirations even and unlabored, symmetrical chest expansion Eyes: PERRL Musculoskeletal: Flexion and extension of lumbar [spine] somewhat guarded secondary to pain, [antalgic gait noted] Neurological: Speech clear, no gross sensory deficit Procedure Details:: Informed consent was obtained and the risk and benefits of the procedure were explained to the patient. The patient had noninvasive monitoring placed including noninvasive blood pressure cuff and pulse oximeter. Patient's pump was interrogated. The area over the pump was cleansed with chlorhexidine as a cleansing solution. In sterile fashion the pump was accessed with a 22-gauge needle. Approximately 8.5 mls of the pump solution was removed and discarded appropriately. The pump was then refilled with 20 mL's of Dilaudid 10 mg/mL. The needle was withdrawn and a bandage was placed over the puncture site. The infusion rate was reprogrammed and increased 20% to Dilaudid 3.798 mg/day. The patient tolerated well with no complication. Plan and Disposition:: Patient tolerated the procedure well with no complications and was discharged neurologically intact. Patient will return to clinic on or before their next intrathecal refill date. We will see the patient back in the clinic at the next intrathecal refill. Patient has been instructed to contact the clinic with any concerns before the next appointment. Dr. Canchola has reviewed this note and agrees with this plan of care. This note was dictated using voice recognition software and make contain errors or omissions. -- It Is medically necessary for this patient to continue to have their intrathecal pump refilled at regular intervals. This patient had an intrathecal pain pump implanted after meeting criteria of chronic intractable pain for greater than 3 months and failing conservative treatments. Patient has committed and been compliant to the treatment plan and all planned follow up care. Since implantation of the intrathecal pain pump, the patient has had decreased pain and been more functional. Oral medications have been reduced including intake of oral opioids. Patient continues to do well with intrathecal therapy with decrease in pain symptoms and increase in functional status. Stopping intrathecal medications can lead to life threatening withdrawal, seizures, cardiac arrest, severe pain, and possible . Pumps that are not refilled at regular intervals can be damages and cause and need for replacement. We continually titrate dose and concentration to optimize pain relief and function. We are limited in concentration for certain drugs to safely deliver medications through the pump and stay within the recommendations from the Polyanalgesic Consensus Committee Guidelines. Depending on dose and concentration these pumps may need to be refilled sooner than 3 months as we titrate. A UDS is needed to verify patient's compliance with our office pain contract. This is ordered based off specific treatments related to chronic pain with the potential to abuse certain medications.
[2024-06-29 15:15] VITALS: BP 163/74; PULSE 74; RESP 18; O2SAT 96
[2024-06-29 15:49] VITALS: BP 166/87; PULSE 70; RESP 16; O2SAT 99
== END 2024-06-29 15:49 | disposition home or self-care (01) ==
PROVIDERS: PCP Nurse Practitioner Family; Visit Provider Nurse Practitioner Family
DX: G89.4 Chronic pain syndrome (principal); M51.369 Other intervertebral disc degeneration, lumbar region without mention of lumbar back pain or lower extremity pain
CPT/HCPCS: 62370

== ENCOUNTER 2024-07-16 11:27 | Outpatient (POV) | payer MEDICARE, SELFPAY ==
[2024-07-16 11:43] VITALS: BP 140/85; PULSE 88; RESP 14; O2SAT 95; BMI 46.3
--- NOTE | 2024-07-16 12:10 | P.PCN_ITS ---
Procedure Date: 07/16/24 Time: 11:18 Anesthesiologist:: Merly Ruiz APRN Complications:: None Pre-procedure Diagnosis:: Degenerative disc disease of lumbar spine with lumbar radiculopathy symptoms, chronic pain syndrome Post-procedure Diagnosis:: Same Indications for Procedure:: Patient is a pleasant 58-year-old female who presents today for intrathecal adjustment and reprogram. She rates her pain today as 7 out of 10. She states that she still feels like her pump could use additional adjustment and that did not really notice a huge improvement at the last increase. Patient is currently managed with Dilaudid 10 mg/mL with a daily dose of 3.798 mg/day. She denies any side effects. Patient does make mention that she did have 1 day that she had gotten out of the shower and is not sure if she just had not dry it off completely but tried to use her bolus device and felt like it got really hot. Patient denies any issues since. Her Andres has been reviewed and is appropriate. Physical Exam: General: Alert and oriented x3, no acute distress, pleasant and cooperative Lungs: Respirations even and unlabored, symmetrical chest expansion Eyes: PERRL Musculoskeletal: Flexion and extension of lumbar [spine] somewhat guarded secondary to pain, [antalgic gait noted] Neurological: Speech clear, no gross sensory deficit Procedure Details:: Informed consent was obtained and the risk and benefits of the procedure were explained to the patient. Patient did have noninvasive monitoring was placed including noninvasive blood pressure cuff and pulse oximeter. Patient's pump was interrogated and was reprogrammed to 20% increase to Dilaudid 4.554 mg/day. The patient tolerated the procedure well with no complications. Plan and Disposition:: Patient tolerated the procedure well with no complications and was discharged neurologically intact. Patient will return to clinic on or before their next intrathecal refill date. We will see the patient back in the clinic at the next intrathecal refill. Patient has been instructed to contact the clinic with any concerns before the next appointment. Dr. Canchola has reviewed this note and agrees with this plan of care. This note was dictated using voice recognition software and make contain errors or omissions. -- It Is medically necessary for this patient to continue to have their intrathecal pump refilled at regular intervals. This patient had an intrathecal pain pump implanted after meeting criteria of chronic intractable pain for greater than 3 months and failing conservative treatments. Patient has committed and been c ompliant to the treatment plan and all planned follow up care. Since implantation of the intrathecal pain pump, the patient has had decreased pain and been more functional. Oral medications have been reduced including intake of oral opioids. Patient continues to do well with intrathecal therapy with decrease in pain symptoms and increase in functional status. Stopping intrathecal medications can lead to life threatening withdrawal, seizures, cardiac arrest, severe pain, and possible . Pumps that are not refilled at regular intervals can be damages and cause and need for replacement. We co ntinually titrate dose and concentration to optimize pain relief and function. We are limited in concentration for certain drugs to safely deliver medications through the pump and stay within the recommendations from the Polyanalgesic Consensus Committee Guidelines. Depending on dose and concentration these pumps may need to be refilled sooner than 3 months as we titrate. A UDS is needed to verify patient's compliance with our office pain contract. This is ordered based off specific treatments related to chronic pain with the potential to abuse certain medications.
[2024-07-16 16:20] LABS: Coronavirus 19, PCR Not Detected (NotDetected); Human Rhinovirus Not Detected (NotDetected); Influenza A, PCR Not Detected (NotDetected); Influenza B, PCR Not Detected (NotDetected); Respiratory Syncytial Virus Not Detected (NotDetected)
== END 2024-07-16 23:59 | disposition home or self-care (01) ==
PROVIDERS: Nurse Practitioner; PCP Nurse Practitioner Family; Visit Provider Nurse Practitioner Family
DX: Z45.1 Encounter for adjustment and management of infusion pump (principal); M51.369 Other intervertebral disc degeneration, lumbar region without mention of lumbar back pain or lower extremity pain; G89.4 Chronic pain syndrome; Z79.891 Long term (current) use of opiate analgesic
CPT/HCPCS: 62368; 87631; 99213; G0463

== ENCOUNTER 2024-07-21 23:52 | Observation (INO) | payer MEDICARE, SELFPAY ==
[2024-07-22] VITALS (17 sets, daily range): BP systolic 114–199; BP diastolic 51–102; PULSE 81–109; RESP 16–25; TEMP 36.4–37.2; O2SAT 82–96; BMI 45.4; BMI 46.0
--- OUTSIDE RECORDS SUMMARY | 2024-07-22 00:35 | XMS_ITS | Data Portability ---
Author Organization [facility] [place] [facility] AD[facility] Address [address] [place] [id number] Care Team Providers Care Security Alarm Technician Name Role Phone BERNIE MENDEZ Primary Care Provider [phone] Assessment No assessment recorded. Plan of Treatment Reminders Order Date Submit Date Provider Last Modified By Organization Details Last Modified Time Details Appointments None recorded. Lab None recorded. Referral None recorded. Procedures None recorded. Surgeries None recorded. Imaging None recorded. Medication Orders sucralfate 100 mg/mL oral suspension 2021 022 [facility] 591, [address], [address], 2 10:10:11 Patient TargetsNo targets recorded. Patient InstructionsNo instructions recorded. Reason for Referral None Reported. Results Created Date Observation Date Name Description Value Unit Range Abnormal Flag Note LastModifiedBy Organization Detail LastModifiedTime Result Notes None recorded. Medical Equipment None Reported. Allergies Allergen ID Allergen Name Allergen Category Reaction Reaction Severity Criticality Documentation Date Start Date Code Code System Note Provider Name and Address Organization Details Recorded Time 15489 Product containin g penicilli n (product) medicatio n Not available Not available Not available 02/12/2022 85353 8001 SNOMED Marian Jorge Luis alexis ALAYNA [facility] [place] 2 09:25:37 37210 Topamax medicatio n Not available Not available Not available 02/12/2022 91720 3 RxNorm Marian Jorge Luis alexis [facility] [place] 2 09:25:42 Medications Name Sig Start Date Stop Date Status Note LastModified by Organization Details LastModified Time latanoprost 0.005 % eye drops INSTILL 1 DROP INTO EACH EYE EVERY DAY AT BEDTIME active Not Available Not Available No t Available atorvastati n 40 mg tablet active Not Available Not Available Not Available bupropion HCl SR 150 mg tablet,12 hr sustained-r elease active Not Available Not Available Not Available levothyroxi ne 137 mcg tablet active Not Available Not Available Not Available ropinirole 1 mg tablet TAKE ONE TABLET BY MOUTH 1-3 HOURS BEFORE BEDTIME NIGHTLY active Not Available Not Available No t Available lisinopril 20 mg-hydrochl orothiazide 12.5 mg tablet TAKE 1 TABLET BY MOUTH ONCE DAILY FOR BLOOD PRESSURE active Not Available Not Available No t Available sucralfate 100 mg/mL oral suspension Take 10 mL 4 times a day by oral route for 30 days. active Not Available Not Available No t Available meloxicam 15 mg tablet TAKE 1 TABLET BY MOUTH ONCE DAILY active Not Available Not Available No t Available sucralfate 1 gram tablet active Not Available Not Available Not Available lisinopril 20 mg tablet 02/12 completed Not Available Not Available Not Available prednisone 20 mg tablet TAKE 1 TABLET BY MOUTH TWICE DAILY active Not Available Not Available No t Available topiramate 25 mg tablet TAKE 1 TABLET BY MOUTH ONCE DAILY AT BEDTIME 02/12 completed Not Available Not Available Not Available spironolact one 25 mg tablet TAKE 1 TABLET BY MOUTH ONCE DAILY active Not Available Not Available No t Available famotidine 20 mg tablet TAKE 1 TABLET BY MOUTH ONCE DAILY active Not Available Not Available No t Available furosemide 80 mg tablet active Not Available Not Available Not Available pantoprazol e 40 mg tablet,jason yed release active Not Available Not Available Not Available esomeprazol e magnesium 40 mg capsule,del ayed release active Not Available Not Available Not Available buspirone 10 mg tablet 02/12 completed Not Available Not Available Not Available promethazin e 25 mg tablet TAKE 1 TABLET BY MOUTH EVERY 6 HOURS NEEDED FOR 10 DAYS active Not Available Not Available No t Available brimonidine 0.2 % eye drops INSTILL 1 DROP INTO EACH EYE TWICE DAILY DIRECTED active Not Available Not Available No t Available gabapentin 300 mg capsule TAKE 1 CAPSULE BY MOUTH THREE TIMES DAILY active Not Available Not Available No t Available estradiol 2 mg tablet active Not Available Not Available No t Available diclofenac sodium 75 mg tablet,jason yed release active Not Available Not Available Not Available montelukast 10 mg tablet active Not Available Not Available Not Available epinephrine 0.3 mg/0.3 mL injection, auto-inject or INJECT CONTENTS OF 1 PEN INTRAMUSC ULARLY NEEDED INTO OUTER THIGH FOR SEVERE ALLERGIC REACTION. CALL 911 AFTER USE active Not Available Not Available No t Available lisinopril 10 mg-hydrochl orothiazide 12.5 mg tablet TAKE 1 TABLET BY MOUTH ONCE DAILY active Not Available Not Available No t Available levofloxaci n 750 mg tablet TAKE 1 TABLET BY MOUTH ONCE DAILY active Not Available Not Available No t Available methylpredn isolone 4 mg tablets in a dose pack TAKE DIRECTED 02/12 completed Not Available Not Available Not Available ondansetron 4 mg disintegrat ing tablet DISSOLVE 1 TABLET IN MOUTH EVERY 8 HOURS NEEDED FOR NAUSEA active Not Available Not Available No t Available cefdinir 300 mg capsule TAKE 1 CAPSULE BY MOUTH TWICE DAILY 02/12 completed Not Available Not Available Not Available fluticasone propionate 50 mcg/actuati on nasal spray,suspe nsion active Not Available Not Available Not Available dicyclomine 10 mg capsule active Not Available Not Available Not Available spironolact one 50 mg tablet active Not Available Not Available Not Available dorzolamide 2 % eye drops INSTILL 1 DROP INTO EACH EYE IN THE MORNING active Not Available Not Available No t Available bupropion HCl XL 300 mg 24 hr tablet, extended release TAKE 1 TABLET BY MOUTH ONCE DAILY IN THE MORNING active Not Available Not Available No t Available Flovent HFA 110 mcg/actuati on aerosol inhaler active Not Available Not Available Not Available Symbicort 80 mcg-4.5 mcg/actuati on HFA aerosol inhaler INHALE 2 PUFFS BY MOUTH TWICE DAILY active Not Available Not Available No t Available levocetiriz ine 5 mg tablet TAKE 1 TABLET BY MOUTH ONCE DAILY FOR ANGIODEMA active Not Available Not Available No t Available Linzess 72 mcg capsule active Not Available Not Available Not Available Motegrity 2 mg tablet active Not Available Not Available No t Available Vitals Date Recorded Body weight Body mass index (BMI) Body height Body temperature Oxygen saturation Oxygen saturation in Arterial blood by Pulse oximetry Heart rate Systolic blood pressure Diastolic blood pressure Provider Name and Address Organization Details Last Updated DateTime 2 749960. 99 g 51.3 kg/m2 180.34 cm 96.2 [degF] 97 % 97 % 93 /min 137 mm[Hg] 81 mm[Hg] Marian CATALAN [facility] [place] 09:30:53 Social History Question Answer Notes LastModified by [employer] Details LastModified Time Tobacco Smoking Status Never Smoker Marian espinoza, ALAYNA [facility] [place] 02/12/2022 09:28:49 What Is Your Level Of Caffeine Consumption? Heavy [email or web address] Information not available 02/19/2022 Sex: Unknown Functional Status Question Answer Note LastModified by [employer] Details LastModified Time Do you use any illicit or recreational drugs? No Information not available 02/12/2022 What is your level of alcohol consumption? None [email or web address] Information not available 02/12/2022 Mental Status None recorded. Family History Relationship Description Onset Age of this Age Resolved Age Notes LastModified by Organization Details LastModified Time Mother Autoimmune disease pt. added direct ly (02/09) API-13 Not available 02/09/2022 13:12:51 Mother Chronic obstructive pulmonary disease pt. added direct ly (02/09) API-13 Not available 02/09/2022 13:13:05 Mother Disorder of endocrine system pt. added direct ly (02/09) API-13 Not available 02/09/2022 13:13:14 Mother Gastroesopha geal reflux disease pt. added direct ly (02/09) API-13 Not available 02/09/2022 13:13:29 Mother Headache pt. added direct ly (02/09) API-13 Not available 02/09/2022 13:13:47 Mother Heart disease pt. added direct ly (02/09) API-13 Not available 02/09/2022 13:14:24 Mother Hypercholest erolemia pt. added direct ly (02/09) API-13 Not available 02/09/2022 13:15:07 Mother Hypertensive disorder pt. added direct ly (02/09) API-13 Not available 02/09/2022 13:15:32 Mother Obesity pt. added direct ly (02/09) API-13 Not available 02/09/2022 13:16:01 Mother Osteoporosis pt. added direct ly (02/09) API-13 Not available 02/09/2022 13:16:18 Mother Rheumatoid arthritis pt. added direct ly (02/09) API-13 Not available 02/09/2022 13:16:37 Mother Sleep disorder pt. added direct ly (02/09) API-13 Not available 02/09/2022 13:17:05 Mother Disorder of thyroid gland pt. added direct ly (02/09) API-13 Not available 02/09/2022 13:17:35 Father Chronic obstructive pulmonary disease pt. added direct ly (02/09) API-13 Not available 02/09/2022 13:13:05 Father Gastroesopha geal reflux disease pt. added direct ly (02/09) API-13 Not available 02/09/2022 13:13:29 Father Headache pt. added direct ly (02/09) API-13 Not available 02/09/2022 13:13:47 Father Myocardial infarction pt. added direct ly (02/09) API-13 Not available 02/09/2022 13:14:10 Father Heart disease pt. added direct ly (02/09) API-13 Not available 02/09/2022 13:14:24 Father Hypercholest erolemia pt. added direct ly (02/09) API-13 Not available 02/09/2022 13:15:07 Father Hypertensive disorder pt. added direct ly (02/09) API-13 Not available 02/09/2022 13:15:32 Father Hearing loss pt. added direct ly (02/09) API-13 Not available 02/09/2022 13:15:41 Father Seizure disorder pt. added direct ly (02/09) API-13 Not available 02/09/2022 13:16:49 Father Sleep disorder pt. added direct ly (02/09) API-13 Not available 02/09/2022 13:17:05 Father Cerebrovascu lar accident pt. added direct ly (02/09) API-13 Not available 02/09/2022 13:17:17 Father Disorder of thyroid gland pt. added direct ly (02/09) API-13 Not available 02/09/2022 13:17:35 Brother Gastroesopha geal reflux disease pt. added direct ly (02/09) API-13 Not available 02/09/2022 13:13:29 Brother Headache pt. added direct ly (02/09) API-13 Not available 02/09/2022 13:13:47 Brother Heart disease pt. added direct ly (02/09) API-13 Not available 02/09/2022 13:14:42 Brother Hypercholest erolemia pt. added direct ly (02/09) API-13 Not available 02/09/2022 13:15:07 Brother Hypertensive disorder pt. added direct ly (02/09) API-13 Not available 02/09/2022 13:15:32 Brother Sleep disorder pt. added direct ly (02/09) API-13 Not available 02/09/2022 13:17:05 Brother Cerebrovascu lar accident pt. added direct ly (02/09) API-13 Not available 02/09/2022 13:17:17 Brother Disorder of thyroid gland pt. added direct ly (02/09) API-13 Not available 02/09/2022 13:17:35 Maternal Grandmother Headache pt. added direct ly (02/09) API-13 Not available 02/09/2022 13:13:47 Maternal Grandmother Hypertensive disorder pt. added direct ly (02/09) API-13 Not available 02/09/2022 13:15:32 Maternal Grandmother Rheumatoid arthritis pt. added direct ly (02/09) API-13 Not available 02/09/2022 13:16:37 Maternal Grandmother Disorder of thyroid gland pt. added direct ly (02/09) API-13 Not available 02/09/2022 13:17:35 Son Sleep disorder pt. added direct ly (02/09) API-13 Not available 02/09/2022 13:17:05 Medical History No medical history recorded. Gynecological HistoryNo gynecological history recorded. Obstetrics History GPAL:G 0 P 0 0 0 0 Past Encounters Encounter ID Performer Location Encounter Start Date Encounter Closed Date Diagnosis/Indication Diagnosis SNOMED-CT Code Diagnosis ICD10 Code Diagnosis Note [id number] Vannessa Aguilar NP [facility] [address] [place] [address] 02/12/2022 09:16:43 02/12/2022 09:58:12 Idiopathic chronic pancreatitis 680114576 K86.1 - EUS scheduled Heartburn 55718180 R12 - Continue pantoprazo le once daily and Pepcid prn- Added sucralfate - EGD scheduled Therapeuti c opioid induced constipation 6627411769 41499 T40.2X5A - Hold Linzess and Motegrity- Provided samples of Movantik 25 mg- follow up via telephone visit next week [id number] Vannessa Aguilar NP [facility] [address] [place] [address] 02/19/2022 09:47:28 02/19/2022 09:59:11 Heartburn 28424625 R12 - Continue pantoprazo le once daily and Pepcid prn- Added sucralfate suspension , symptoms improved- EGD scheduled Therapeuti c opioid induced constipation 5062166129 30802 T40.2X5A - Hold Linzess and Motegrity- Provided samples of Movantik 25 mg. Reports she did not try the Movantik as she was hospitaliz ed due dehydratio n.- reports she is feeling much better increasing water intake and she will try the Movantik and let us know how she likes Health Concerns Section Related Observation LastModified by Organization Detai ls LastModified Time None Recorded Concern Status LastModified by Organization Details LastModified Time None Recorded Advance Directives Directive None Recorded Payers Insurance Date Sequence Insurance Name Policy Number Policy Fair Covered Member ID Fair Member ID Guarantor Name 02/12/2022 2 [facility] (MEDICARE SUPPLEMENT) Kenna Pacheco [id number] Kenna Bergman 04/14/2022 1 [employer] (MEDICARE REPLACEMENT/ADV ANTAGE - PPO) [id number] Kenna Omar Bergmna [id number] Kenna Bergman 04/14/2022 2 MEDICAID-[facility] - FFS/TRADITIONAL Kennakvng Bergman [id number] Kenna Pacheco Notes Date Note Type Note Provider Name and Address Organization Details Recorded Time 02/12/2022 text/html Patient is a 48-year-old female referred to our office after hospitalization at [facility] related to pancreatitis. Reports his to the 2nd time she is had pancreatitis in the past 7 years and this time she was admitted with sepsis. Does not drink alcohol. Also has a history of dysphagia with peptic stricture, denies today. Reports her last EGD was done per Dr. Hollingsworth's approximately 5 years ago. Reports persistent nausea heartburn and constipation. Patient does have a Dilaudid pain pump. Reports several members of her extended family have had pancreatitis and 1 positive family history for pancreatic cancer. Currently taking Linzess and Motegrity for constipation without much relief. Last colonoscopy was in 2018, reports no polyps. Currently taking Pepcid as needed and pantoprazole once daily with breakthrough heartburn. Denies hematemesis or hematochezia. Vannessa Aguilar, [employer] SALES [employer]NA[employer] [address] [place], [address], [facility] [place] 02/12/2022 10:14:16 02/19/2022 text/html (02/12/22) Reid nt is a 48-year-old female referred to our office after hospitalization at [facility] related to pancreatitis. Reports his to the 2nd time she is had pancreatitis in the past 7 years and this time she was admitted with sepsis. Does not drink alcohol. Also has a history of dysphagia with peptic stricture, denies today. Reports her last EGD was done per Dr. Hollingsworth's approximately 5 years ago. Reports persistent nausea heartburn and constipation. Patient does have a Dilaudid pain pump. Reports several members of her extended family have had pancreatitis and 1 positive family history for pancreatic cancer. Currently taking Linzess and Motegrity for constipation without much relief. Last colonoscopy was in 2018, reports no polyps. Currently taking Pepcid as needed and pantoprazole once daily with breakthrough heartburn. Denies hematemesis or hematochezia.() patient is following up today on heartburn and constipation. Reports she did change to the liquids sucralfate which seems to help her heartburn more than tablets. Reports she has not yet tried the Movantik as she was hospitalized due to dehydration. Reports she is now feeling better and is at home she will call the office once she tries the Movantik and let us know how she likes it. Denies complaints or concerns otherwise.A total of 7 minutes were spent with the patient during this telephone encounter. Greater than 50% of the time spent in medical decision making and evaluation. Vannessa Aguilar, LOGAN [address], [place], [address], [facility] [place] [facility] [place] 02/19/2022 09:57:30 OBGyn Episode No OBEpisode recorded.
--- OUTSIDE RECORDS SUMMARY | 2024-07-22 00:35 | XMS_ITS | Clinical Summary ---
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 Phone Jb Gitazechariah Elmore APRN Primary Care Provider [phone] Allergies Active Allergy Reactions Criticality Noted Date Comments Metoprolol Unknown - Patient st ates they do not know rxn details Low 05/12/2016 Penicillins Unknown - Patient st ates they do not know rxn details Low 05/12/2016 Medications albuterol 108 (90 Base) MCG/ACT inhaler INHALE 2 PUFFS BY MOUTH EVERY 4 TO 6 HOURS NEEDED FOR PERSISTENT COUGH WHEEZE CHEST TIGHTNESS OR SHORTNESS OF BREATH Active brimonidine (AlphaGAN P) 0.2 % ophthalmic solution INSTILL 1 DROP INTO EACH EYE TWICE DAILY DIRECTED 3 Active buPROPion XL (Wellbutrin XL) 300 MG 24 hr tablet TAKE 1 TABLET BY MOUTH ONCE DAILY IN THE MORNING 3 Active cetirizine (ZyrTEC) 10 MG tablet Take 1 tablet (10 mg) by mouth 1 (one) time each day. Active dorzolamide (Trusopt) 2 % ophthalmic solution 3 Active Flovent HFA 110 MCG/ACT inhaler 3 Active furosemide (Lasix) 80 MG tablet 3 Active gabapentin (Neurontin) 600 MG tablet Take 1 tablet (600 mg) by mouth 3 (three) times a day. 7 Active HYDROcodone-angie taminophen ([place]) 5-325 MG tablet TAKE 1 TABLET BY MOUTH EVERY 6 HOURS NEEDED FOR MODERATE TO SEVERE PAIN Active latanoprost (Xalatan) 0.005 % ophthalmic solution 3 Active levothyroxine (Synthroid, Levoxyl) 137 MCG tablet 3 Active montelukast (Singulair) 10 MG tablet 3 Active predniSONE (Deltasone) 5 MG tabletIndicatio ns:Positive JOSE (antinuclear antibody),Polya rthralgia 3 tablets daily x 1 week, 2 tablets daily x1 week then one tablet daily 49 tablet 3 Active hydroxychloroqu ine (Plaquenil) 200 MG tabletIndicatio ns:Polyarthralg ia Take 1 tablet (200 mg) by mouth 2 (two) times a day. 60 tablet 5 3 Active Active Problems No known active problems Immunizations Immunization Administration Dates Next Due Influenza, injectable, quadr ivalent, preservative free 11/20/2019,11/08/2016,12/05/2015 Influenza, seasonal, injectable 04/11/2015 Moderna COVID-19 Vaccine (Re d Cap) 12+ years 03/03/2021,08/20/2020,07/23/2020 Tdap 09/17/2020 Family History Medical History Relation Name Comments Conversions - Other Other 1 Back pro blem Hypertension Other 2 Other cancer Other 3 Heart attack Other 4 Relation Name Status Comments Other 1 Other 2 Other 3 Other 4 Social History Tobacco Use Types Packs/Day Years Used Date Smoking Tobacco: Never Smokeless Tobacco: Never Tobacco Cessation:Counseling Given: Not Answered Alcohol Use Standard Drinks/Week Comments No 0 (1 standard drink = 0.6 oz pur e alcohol) Comments Unknown Sex and Gender Information Value Date Recorded Sex Assigned at Not on file Legal Sex Female 8:27 PM EDT Gender Identity Not on file Sexual Orientation Not on file Last Filed Vital Signs Vital Sign Reading Time Taken Comments Blood Pressure 143/87 08/18/2022 12:18 PM EDT Pulse 72 08/18/2022 12:18 PM EDT Temperature 36.7 C (98.1 F) 08/18/2022 12:18 PM EDT Respiratory Rate - - Oxygen Saturation 97% 08/18/2022 12:18 PM EDT Inhaled Oxygen Concentration - - Weight 164 kg (361 lb 12.4 oz) 08/18/2022 12:18 PM EDT Height 180.3 cm (5' 11 ) 08/18/2022 12:18 PM EDT Body Mass Index 50.46 08/18/2022 12:18 PM EDT Plan of Treatment Health Maintenance Due Date Last Done Comments [facility]-Depression Screening 1965 [facility]-Medicare Annual Wellness (AWV) 1965 [facility]-Infant/Child/Adol SDOH Screenings 1965 [facility]- SDOH Screenings 10/02/1981 [facility]-Adult SDOH Screenings 10/02/1981 [facility]-Zoster Vaccines (1 of 2) 10/02/1982 CT Colonography 10/02/2008 Colonoscopy 10/02/2008 FIT-DNA 10/02/2008 FIT 10/02/2008 FOBT 10/02/2008 Sigmoidoscopy 10/02/2008 [facility]-Colorectal Cancer Screening 10/02/2008 [facility]-Breast Cancer Screening 10/02/2013 [facility]-Pneumococcal Vaccine: 50+ Years (1 of 1 - PCV) 10/02/2013 [facility]-RSV Vaccine: 60+ Years or (1 - Risk 60-74 years 1-dose series) 2023 [id number] Vaccine ( - 2023- season) 2023 03/03/2021, 08/20/2020, 07/23/2020 [facility]-Influenza Vaccine (Season Ended) 2024 11/20/2019, 11/08/2016, 12/05/2015, Additional history exists [facility]-DTaP,Tdap,and Td Vaccines (2 - Td or Tdap) 09/17/2030 09/17/2020 [facility]-HIV Screening Completed 08/18/2022 [facility]-Hepatitis C Screening Completed 08/18/2022 [facility]-Obesity Intervention Completed 09/08/2022, 06/2022 HPV Vaccines Aged Out No longer eligi ble based on patient's age to complete this topic [facility]-HIB Vaccines Aged Out No longer e ligible based on patient's age to complete this topic [facility]-Hepatitis A Vaccines Aged Out No longer eligible based on patient's age to complete this topic [facility]-IPV Vaccines Aged Out No longer e ligible based on patient's age to complete this topic [facility]-Rotavirus Vaccines Aged Out No lo nger eligible based on patient's age to complete this topic Procedures Procedure Name Priority Date/Time Associated Diagnosis Comments ACUTE HEPATITIS PANEL Routine 08/18/2022 2:34 PM EDT Positive JOSE (antinuclear antibody) HIV 1/2 ANTIBODY/ANTIGEN SCREEN WITH REFLEX TO HIV I/II DIFFERENTIATION Routine 08/18/2022 2:34 PM EDT Positive JOSE (antinuclear antibody) from Last 3 Months or Most Recently Relevant to Health Maintenance Results * HIV 1 & 2 Antibody/Antigen Screen (08/18/2022 2:34 PM EDT) HIV 1 & 2 Antibody/Antigen Screen Non Reactive Non Reactive 08/18/2022 4:22 PM EDT [facility] Comment:Screening for HIV 1 & 2 antibodies, and P24 antigen is NONREACTIVE. No confirmatory testing is required. Blood Venous blood specimen / Unknown Venipuncture / Unknown 08/18/2022 2:34 PM EDT 08/18/2022 2:34 PM EDT February Palmira [employer] [facility] BLOOD ORDERABLES Final Result Performing Organization Address City/[facility] de Phone Number [facility] [address] [place] [phone] * Acute Hepatitis Panel (08/18/2022 2:34 PM EDT) Hepatitis B Surf Antigen Negative Negative 08/18/2022 5:18 PM EDT [facility] Hepatitis C Antibody Negative Negative 08/18/2022 5:18 PM EDT [facility] Hepatitis A Antibody IgM Negative Negative 08/18/2022 5:18 PM EDT [facility] Hepatitis B Core Antibody IgM Negative Negative 08/18/2022 5:18 PM EDT [facility] Blood Venous blood specimen / Unknown Venipuncture / Unknown 08/18/2022 2:34 PM EDT 08/18/2022 2:34 PM EDT February Palmira [employer] BLOOD ORDERABLES Final Result Performing Organization Address City/[facility]/ZIP Co de Phone Number [facility] [address] [place] [address] from Last 3 Months or Most Recently Relevant to Health Maintenance Insurance [employer] Care Teams Marine Welder Relationship Specialty Start Date End Date Gita Muhammad APRN [address] [place] [phone] PCP - General 06/25/22
--- NOTE | 2024-07-22 00:45 | CT_ITS ---
PROCEDURE INFORMATION: Exam: CT Abdomen And Pelvis With Contrast Exam date and time: 07/22/2024 2:16 AM Age: 58 years old Clinical indication: Abdominal pain; Additional info: Epigastric and luq pain w/ n/v TECHNIQUE: Imaging protocol: Computed tomography of the abdomen and pelvis with contrast. 3D rendering (Not supervised by radiologist): MIP and/or 3D reconstructed images were created by the technologist. Radiation optimization: All CT scans at this facility use at least one of these dose optimization techniques: automated exposure control; mA and/or kV adjustment per patient size (includes targeted exams where dose is matched to clinical indication); or iterative reconstruction. Contrast material: ISOVUE; Contrast volume: 75 ml; Contrast route: IV; COMPARISON: CT ABDOMEN PELVIS WO CON 02/16/2022 3:39 PM FINDINGS: Liver: Normal. No mass. Gallbladder and biliary ducts: Surgically absent gallbladder without biliary ductal dilatation. Pancreas: Normal. No ductal dilation. Spleen: Normal. No splenomegaly. Adrenal glands: Stable 2.5 cm left adrenal nodule. Unremarkable unenhanced right adrenal gland. Kidneys and ureters: No nephroureterolithiasis or hydroureter. Stomach and bowel: Scattered colonic diverticula without pericolonic fat stranding. Nonobstructive bowel gas pattern. Appendix: No evidence of appendicitis. Intraperitoneal space: Unremarkable. No free air. No significant fluid collection. Vasculature: Unremarkable. No abdominal aortic aneurysm. Lymph nodes: Unremarkable. No enlarged lymph nodes. Urinary bladder: Unremarkable as visualized. Reproductive: Unremarkable as visualized. Bones/joints: Unremarkable. No acute fracture. Soft tissues: Periumbilical fat containing hernia with mild fat stranding in hernia sac. IMPRESSION: 1. Fat containing periumbilical hernia with mild fat stranding in hernia sac. Can not exclude fat ischemia. 2. Colonic diverticulosis 3. Left adrenal nodule.
--- NOTE | 2024-07-22 00:45 | CT_ITS ---
PROCEDURE INFORMATION: Exam: CTA Chest With Contrast Exam date and time: 07/22/2024 2:16 AM Age: 58 years old Clinical indication: Cough and tachypnea; Additional info: Tachy, cough TECHNIQUE: Imaging protocol: Computed tomographic angiography of the chest with contrast. Exam focused on the arteries. 3D rendering (Not supervised by radiologist): MIP and/or 3D reconstructed images were created by the technologist. Radiation optimization: All CT scans at this facility use at least one of these dose optimization techniques: automated exposure control; mA and/or kV adjustment per patient size (includes targeted exams where dose is matched to clinical indication); or iterative reconstruction. Contrast material: ISOVUE; Contrast volume: 75 ml; Contrast route: INTRAVENOUS (IV); COMPARISON: CT CHEST WO CON 04/14/2021 4:09 PM FINDINGS: Pulmonary arteries: No central or segmental pulmonary arterial intraluminal filling defect identified. Aorta: Unremarkable. No aortic aneurysm. No aortic dissection. Lungs: Mild air trapping. No consolidation. No masses. Pleural spaces: Unremarkable. No pneumothorax. No pleural effusion. Heart: Unremarkable. No cardiomegaly. No pericardial effusion. Lymph nodes: Unremarkable. No enlarged lymph nodes. Bones/joints: Unremarkable. No acute fracture. Soft tissues: Unremarkable. IMPRESSION: 1. No central or segmental pulmonary arterial embolism identified. 2. Mild pulmonary air trapping.
--- NOTE | 2024-07-22 00:47 | HMH.EDGENADL ---
Discharge Plan Disposition Patient Disposition: Admitted Condition: Good Clinical Impressions Clinical Impression: Acute hypoxic respiratory failure, Nausea, vomiting, and diarrhea Discharge ED Provider: Mary Noble General Adult HPI General Chief complaint: Upper Respiratory Infection Stated complaint: coughing throwing up chills fever Time Seen by Provider: 07/22/24 00:40 Mode of Arrival: Ambulatory Source of Information: Patient Description of Symptoms (Recalled from ER Triage Doc. by RN): Pt to ED with c/o cough, decreased appetite, N/V/D, body aches, feeling cold/sweaty since Tuesday. Pt reports her and her grandchildren began having these symptoms the same day and were seen in [facility] on Tuesday. Pt took tylenol and motrin @ 6:30 pm last night. History of Present Illness HPI narrative: 58-year-old female presents to the ER with complaints of cough, decreased appetite, nausea, vomiting, diarrhea, body aches, subjective fevers for the last 6 days. Patient reports similar symptoms going through the house. Household members have rhinovirus. Patient reports she has had cough and vomiting, nonbloody, nonbilious emesis, diarrhea has been nonbloody, nonmelanotic. Worse abdominal pain and demonstrates to the epigastric and left upper quadrant area, she does not drink alcohol but does have a history of pancreatitis. She states she is not having any chest pain but is having productive cough that causes discomfort when she coughs. She reports a history of BRAULIO and asthma, she also has a history of CAD, hyperlipidemia, obesity, GERD. Denies dysuria or hematuria. No other complaints or concerns. Related Data Home Medications ?Medication ?Instructions ?Recorded ?Confirmed latanoprost 0.005 % eye drops 1 drp Eye-Both DAILY 06/28/23 07/16/24 azelastine 137 mcg (0.1 %) nasal 1 - 2 spray intranasal BID PRN 04/04/24 07/16/24 spray Asthma brimonidine 0.2 % eye drops 1 drp Eye-Both DAILY 04/04/24 07/16/24 cetirizine 10 mg tablet 10 mg PO DAILY 04/04/24 07/16/24 dorzolamide 2 % eye drops 1 drp Eye-Both DAILY 04/04/24 07/16/24 fluticasone propionate 110 110 mcg inhalation DAILY 04/04/24 07/16/24 mcg/actuation HFA aerosol inhaler fluticasone propionate 50 1 - 2 spray intranasal DAILY 04/04/24 07/16/24 mcg/actuation nasal spray,suspension multivitamin 1 tab PO DAILY 04/20/24 07/16/24 zinc 10 mg tablet 10 mg PO DAILY 04/20/24 07/16/24 Previous Rx's ?Medication ?Instructions ?Recorded omeprazole 20 mg capsule,delayed 20 mg PO BID gerd #60 caps 06/28/23 release ropinirole 0.5 mg tablet See Rx Instructions .Route 12/06/23 .COMPLEX 30 days #30 tabs losartan 50 mg tablet See Rx Instructions .Route 06/20/24 .COMPLEX #30 tabs azithromycin 250 mg tablet See Rx Instructions PO .COMPLEX #6 07/16/24 tabs benzonatate 100 mg capsule 100 mg PO TID PRN cough #30 caps 07/16/24 levothyroxine 125 mcg tablet See Rx Instructions .Route 07/16/24 .COMPLEX #30 tabs methylprednisolone 4 mg tablets in See Rx Instructions PO PER PKG DIR 07/16/24 a dose pack (Medrol (Luis Angel)) #21 tabs Allergies Allergy/AdvReac Type Severity Reaction Status Date / Time Penicillins Allergy Hives Verified 07/16/24 12:59 topiramate (From Topamax) Allergy Rash Verified 07/16/24 12:59 PFSH PFS Disclaimer: The information contained in this section may have been updated after the patient was seen, as this information can be updated by other users. Medical History Encounter for pre-operative cardiovascular clearance Obstructive sleep apnea syndrome, severe Nasal septal spur GERD (gastroesophageal reflux disease) Deviated nasal septum Edema of both lower extremities History of 2019 novel coronavirus disease (COVID-19) Family history of lung cancer Stopped smoking with greater than 30 pack year history Lung nodule Asthma Migraine History of back pain History of gastroesophageal reflux (GERD) Congestive heart failure IBS (irritable bowel syndrome) Hyperlipidemia CAD (coronary artery disease) BRAULIO (obstructive sleep apnea) HTN (hypertension) Ex-smoker Morbid obesity Surgical History S/P insertion of intrathecal pump H/O bilateral salpingo-oophorectomy H/O: hysterectomy History of colonoscopy History of cholecystectomy Family History Other Breast cancer Colon cancer Family history of Alzheimer's disease Family history of COPD (chronic obstructive pulmonary disease) Family history of GERD Family history of TIAs Family history of acute congestive heart failure Family history of asthma Family history of diabetes mellitus type II Family history of hyperlipidemia Family history of hypertension Family history of hypothyroidism Family history of irritable bowel syndrome Family history of kidney stone Family history of migraine headaches Family history of myocardial infarction Heart disease Lung cancer Stroke Social History Smoking Status: Never smoker years smoked: 20 smoking status stop date: 18 years ago alcohol intake: never substance use type: denies use current occupational status: other Travel in the last 8 weeks?: None household members: spouse and children housing: house lives independently: No marital status: current occupational exposures/hazards: No caffeine: Yes Have you lived/traveled outside [place] in past 30 days?: No Contact w/someone who lives/traveled outside [place] past 30 days?: No Exposure to someone with infectious disease in past 14 days?: No Do you have a fever (greater than 100.4 F or 38 C)?: Yes Have you tested positive for COVID-19?: No Exposed to someone with COVID-19 in past 14 days?: No Do you have a sore throat?: No Do you have a cough?: Yes Do you have any weakness?: No Do you have any diarrhea?: No Are you experiencing any unusual bleeding?: No Do you have any muscle aches/pain?: No Do you have any abdominal pain?: No Are you experiencing loss of taste or smell?: No Other Medical History Have you received the Flu Vaccine for this season: Yes Have you received the Pneumonia Vaccine: Yes ROS Obtained: Yes Systems reviewed as appropriate & no additional complaints except as documented Per HPI Physical Exam General General appearance: alert, in no apparent distress and obese Head Head exam: atraumatic and normocephalic Eye Eye exam: Present PERRL and EOMI ENT ENT exam: Present mucous membranes moist Neck Neck exam: Present normal inspection and full ROM Chest Chest inspection: Present symmetric chest wall rise Respiratory Respiratory exam: Present normal lung sounds bilaterally and wheezes (Faint end expiratory); Absent respiratory distress or stridor Cardiovascular Cardiovascular exam: Present normal rhythm and tachycardia Abdominal Exam Abdominal exam: Present soft and tenderness (Epigastric left upper quadrant); Absent distention, guarding or rebound Extremities Exam Extremities exam: Present full ROM; Absent edema Neurological Exam Neurological exam: Present alert and oriented X3; Absent motor sensory deficit Psychiatric Psychiatric exam: Present normal affect and normal mood Skin Skin exam: Present warm and dry Medical Decision Making Medical Records Medical records reviewed: Yes I reviewed the patient's medical records. Screening: Per USPSTF and CDC recommendations, given the prevalence of disease in our region, it is our hospital?s policy to screen for HIV and viral Hepatitis for all patients aged 18 and over and those with ongoing risk factors. Andres Inquiry Pt receiving controlled substance: No Vital Signs: 07/22/24 00:38 07/22/24 01:30 07/22/24 01:54 Temperature 98.9 F Temperature Source Oral Pulse Rate 94 H 93 H Pulse Rate [Left Radial] 108 H Respiratory Rate 20 Blood Pressure Blood Pressure [Right Arm] 140/84 Blood Pressure Mean Blood Pressure Mean [Right Arm] 102 Blood Pressure Source [Right Arm] Automatic Cuff Blood Pressure Position [Right Arm] Sitting 02 Sat by Pulse Oximetry 92 L 94 L Oxygen Delivery Method Room Air Nasal Cannula Oxygen Flow Rate (LPM) 2 07/22/24 02:00 07/22/24 02:00 07/22/24 02:31 Temperature Temperature Source Pulse Rate 101 H 107 H Pulse Rate [Left Radial] Respiratory Rate 19 Blood Pressure 166/90 H 166/90 H 189/99 H Blood Pressure [Right Arm] Blood Pressure Mean 115 Blood Pressure Mean [Right Arm] Blood Pressure Source [Right Arm] Blood Pressure Position [Right Arm] 02 Sat by Pulse Oximetry 96 90 L Oxygen Delivery Method Oxygen Flow Rate (LPM) 07/22/24 03:01 Temperature Temperature Source Pulse Rate 102 H Pulse Rate [Left Radial] Respiratory Rate 20 Blood Pressure 161/100 H Blood Pressure [Right Arm] Blood Pressure Mean Blood Pressure Mean [Right Arm] Blood Pressure Source [Right Arm] Blood Pressure Position [Right Arm] 02 Sat by Pulse Oximetry 90 L Oxygen Delivery Method Oxygen Flow Rate (LPM) Lab Data Lab Results 07/22/24 00:47: VBG pH 7.35, VBG pCO2 57.0 H, VBG pO2 37.0, VBG HCO3 31.0 H, VBG Total CO2 32.7 H, VBG O2 Saturation 69.2, VBG Base Excess 5.4 H, VBG Lactic Acid 1.5 07/22/24 01:11: WBC 12.6 H, RBC 4.74, Hgb 13.0, Hct 40.7, MCV 85.9, MCH 27.4, MCHC 31.9, RDW 15.9, Plt Count 403, MPV 9.7, Neut % (Auto) 81.3 H, Lymph % (Auto) 9.4 L, [place] % (Auto) 7.7, Eos % (Auto) 0.8, Baso % (Auto) 0.4, Neut # (Auto) 10.2 H, Lymph # (Auto) 1.2, [place] # (Auto) 1.0, Eos # (Auto) 0.1, Baso # (Auto) 0.1, Sodium 137, Potassium 3.8, Chloride 99, Carbon Dioxide 32 H, Anion Gap 9.8, BUN 11, Creatinine 1.00, Estimated Creat Clear 67, Estimated GFR 57 L, Est GFR ( Amer) 68, Glucose 98, Calcium 8.9, Total Bilirubin 0.7, AST 34, ALT 30, Alkaline Phosphatase 106, Troponin I < 0.01, Total Protein 8.7 H, Albumin 3.9, Globulin 4.8 H, Albumin/Globulin Ratio 0.8 L, Lipase 122, HCV Ab [place] w/Rflx PCR Qn Negative, HIV Ag/Ab Combo Qual Negative 07/22/24 01:11 07/22/24 01:11 Orders (Tests/Meds): ED MEDICATIONS Generic Name Dose Route Start Last Admin Trade Name Freq PRN Reason Stop Dose Admin Acetaminophen 650 mg 07/22/24 03:57 Acetaminophen 325mg Tab PO 08/21/24 03:56 Q4HP PRN Fever or Mild Pain (1-3) Hydrocodone Bitart/Acetaminophen 1 tab 07/22/24 03:57 Hydrocodone/Apap 5/325 Mg Tablet PO 08/21/24 03:56 Q4HP PRN Mild to Moderate Pain (1-6) Enoxaparin Sodium 40 mg 07/22/24 09:00 Enoxaparin 40mg/0.4ml Syringe SUBCUT 08/21/24 08:59 DAILY PEDRO Azithromycin 500 mg/ Sodium 250 mls @ 250 mls/hr 07/22/24 03:15 07/22/24 03:47 Chloride IV 08/01/24 03:14 250 mls/hr Q24H PEDRO Administration Ondansetron HCl 4 mg 07/22/24 03:57 Ondansetron 4mg/2ml Vial IV 08/21/24 03:56 Q8HP PRN Nausea Pantoprazole Sodium 40 mg 07/22/24 21:00 Pantoprazole 40mg Tablet PO 08/21/24 20:59 HS PEDRO Discontinued Medications Generic Name Dose Route Start Last Admin Trade Name Freq PRN Reason Stop Dose Admin Albuterol/Ipratropium 3 ml 07/22/24 00:47 07/22/24 01:18 Ipratropium/Albuterol 3 Ml [facility] 07/22/24 00:48 3 ml ONCE ONE Administration Albuterol/Ipratropium 6 ml 07/22/24 01:30 07/22/24 01:53 Ipratropium/Albuterol 3 Ml [facility] 07/22/24 01:31 6 ml ONCE ONE Administration Lactated Ringer's 1,000 mls @ 999 mls/hr 07/22/24 00:46 07/22/24 01:04 Lactated Ringer's 1000 Ml Bag IV 07/22/24 01:46 999 mls/hr .Q1H1M ONE Administration Iopamidol 70 ml 07/22/24 02:17 07/22/24 02:19 Iopamidol-370 (76%);100ml Bottle IV 07/22/24 02:18 70 ml ONCE ONE Administration Ondansetron HCl 4 mg 07/22/24 00:46 07/22/24 01:04 Ondansetron 4mg/2ml Vial IV 07/22/24 00:47 4 mg ONCE ONE Administration Sodium Chloride 50 ml 07/22/24 02:17 07/22/24 02:19 0.9 % Sodium Chloride 50 Ml Vial IV 07/22/24 02:18 50 ml ONCE ONE Administration Sodium Chloride 10 ml 07/22/24 02:17 07/22/24 02:19 Sodium Chloride 0.9% 10ml Syr (Rad Only) IV 07/22/24 02:18 10 ml ONCE ONE Administration ORDERS Category Date Time Status CT abdomen pelvis w con Stat Cat Scan 07/22/24 00:[address] angio chest PE protocol Stat Cat Scan 07/22/24 00:45 Completed CBC w/Auto Diff [Complete Blood Count Auto Diff] Stat Lab 07/22/24 01:11 Completed CMP [Comprehensive Metabolic Panel] Stat Lab 07/22/24 01:11 Completed Complete Blood Count Auto Diff AMLAB Lab 07/22/24 06:00 Ordered Comprehensive Metabolic Panel AMLAB Lab 07/22/24 06:00 Ordered Full Resp Panel w/COVID ([facility]) Routine Lab 07/22/24 03:15 Received HIV Combo Stat Lab 07/22/24 01:11 Completed Hepatitis C Ab Qual. W/ RFX Stat Lab 07/22/24 01:11 Completed Lipase Stat Lab 07/22/24 01:11 Completed Lipid Panel AMLAB Lab 07/22/24 06:00 Ordered Magnesium AMLAB Lab 07/22/24 06:00 Ordered Phosphorous AMLAB Lab 07/22/24 06:00 Ordered Prothrombin Time INR Routine Lab 07/22/24 03:57 Ordered Trop I [Troponin I] Stat Lab 07/22/24 01:11 Completed Troponin I Q3H Lab 07/22/24 04:00 Ordered Troponin I Q3H Lab 07/22/24 07:00 Ordered VBG [Venous Blood Gas] Stat RT 07/22/24 00:47 Completed 12-lead EKG Request [ECG Request] Stat Y 07/22/24 01:18 Completed Medical Decision Narrative: In summary, this 58-year-old female with comorbidities described in the HPI which may not be at goal therapy presents to the emergency department today with cough, congestion, nausea, vomiting, diarrhea, body aches. On initial evaluation patient is tachycardic but otherwise hemodynamically stable, afebrile, patient has mild end expiratory wheezing with no other adventitious sounds, mild epigastric and left upper quadrant tenderness in the abdomen without rebound or guarding, no peritonitic findings. Differential diagnosis includes but is not limited to viral syndrome, ACS, PE, pneumonia, pancreatitis, electrolyte abnormality, dehydration, kidney dysfunction, among others. Based on these concerns, I ordered cardiac workup, CT imaging, serum labs. Patient is having random desaturations and had to be placed on nasal cannula. She does have a history of BRAULIO but no history of oxygen requirement. ECG personally interpreted demonstrates normal sinus rhythm, rate 97, normal axis, normal ID and QTc, poor R wave progression, no STEMI. Patient received IV fluids, Zofran, DuoNebs for treatment. Labs personally reviewed demonstrate mild leukocytosis WBC 12.6, no anemia, normal platelets, CMP nonactionable, VBG with normal pH but hypercarbia is present, well compensated, VBG lactate 1.5. Initial troponin undetectably low less than 0.01. Lipase normal at 122 reassuring against pancreatitis. CTA PE personally interpreted demonstrates poor contrast timing but no large PE, no lobar infiltrate, patient does have areas of faint patchy infiltrate which in the setting of her upper respiratory symptoms and new oxygen requirement could represent atypical pneumonia. Azithromycin administered. CT abdomen pelvis personally Does not demonstrate acute intra-abdominal pathology, patient has a fat-containing umbilical hernia. See radiology read for final interpretation of all radiology studies. I do not believe the fat-containing hernia correlates clinically since patient does not have any pain in this area. Patient is still requiring nasal cannula. While talking to me about her results she desaturated to 88% despite being on nasal cannula. I believe patient requires admission for acute hypoxic respiratory failure, patient is agreeable to this. I discussed this case with the hospitalist who graciously accepted the patient in stable condition. Critical Care Critical Care Time Critical Care Time: No
[2024-07-22] MEDS: ONDANSETRON 4MG/2ML VIAL 4 MG IV ×2 (01:04→09:02)
[2024-07-22] MEDS: LACTATED RINGERS 1000ML 1,000 ML 999 ML IV (01:04)
[2024-07-22] MEDS: IPRATROPIUM/ALBUTEROL 3 ML NEB IH ×2 (01:18→11:08)
--- NOTE | 2024-07-22 01:18 | ECG_ITS ---
APPROVED REPORT Exam: Resting ECG HR:97 bpm ECG Measurements Heart Rate 97 AXES KS 141 P 39 QRSd 125 QRS -56 QT 329 T 31 QTc 383 Conclusion SINUS RHYTHM RIGHT BUNDLE BRANCH BLOCK [120+ ms QRS DURATION, UPRIGHT V1, 40+ ms S IN I/aVL/V4/V5/V6] LEFT ANTERIOR FASCICULAR BLOCK [QRS AXIS <= -45, QR IN I, RS IN II] POSSIBLE ANTERIOR MYOCARDIAL INFARCTION , PROBABLY OLD [30 ms Q WAVE IN V3/V4, OR R < 0.2 mV IN V4] No STEMI Electronically signed by : TERENCE BUTT, 07/22/2024 07:12:44
[2024-07-22 01:22] LABS: Lactate Venous 1.5 mmol/L (0.4-2.0); VBG Base Excess 5.4 mmol/L (-2.4-2.3); VBG Oxygen Saturation 69.2 % (50-70); VBG PH 7.35 mmol/L (7.31-7.41); VBG Total CO2 32.7 mmol/L (23-27)
--- NOTE | 2024-07-22 01:22 | PC.NURSE ---
pts O2 sat decreased to 85%. pt instructed to take deep breaths and placed on 2L NC. MD Noble aware.
[2024-07-22 01:25] LABS: Basophils # 0.1 K/mm3 (0-0.2); Basophils % 0.4 % (0.1-2.0); Eosinophils # 0.1 Kmm3 (0.0-0.4); Eosinophils % 0.8 % (0.1-12.0); Hematocrit 40.7 % (37.0-47.0); Immature Granulocytes # 0.05 10^3uL; Immature Granulocytes % 0.4 %; Lymphocytes # 1.2 K/mm3 (0.7-4.5); Lymphocytes % 9.4 % (10-50); Mean Corpuscular HGB Conc 31.9 g/dL (31.8-35.4); Mean Corpuscular Hemoglobin 27.4 pg (27.0-31.2); Mean Corpuscular Volume 85.9 fl (81-99); Mean Platelet Volume 9.7 fl (7.4-10.4); Monocytes % 7.7 % (1.7-9.3); Neutrophils # 10.2 K/mm3 (1.8-7.8); Neutrophils % 81.3 % (37.0-80.0); Nucleated Red Blood Cells # 0 10^3/uL; Nucleated Red Blood Cells % 0 %; Platelet Count 403 K/mm3 (142-424); Red Blood Count 4.74 M/mm3 (4.20-5.40); Red Cell Distribution Width 15.9 % (11.5-17.5); Red Cell Distribution Width-SD 50.8 fL; White Blood Count 12.6 K/mm3 (4.8-10.8)
[2024-07-22 01:37] LABS: Lipase 122 U/L (23-300)
[2024-07-22 01:39] LABS: Alanine Aminotransferase 30 U/L (12-78); Albumin Level 3.9 g/dl (3.5-5.0); Albumin/Globulin Ratio 0.8 (1.1-1.8); Alkaline Phosphatase 106 U/L (38-126); Anion Gap 9.8 mEq/L (5-15); Aspartate Amino Transferase 34 U/L (14-36); Bilirubin,Total 0.7 mg/dl (0.2-1.3); Blood Urea Nitrogen 11 mg/dl (7-17); Calcium 8.9 mg/dl (8.4-10.2); Carbon Dioxide 32 mmol/L (22.0-30.0); Chloride 99 mmol/L (98-107); Creatinine Clearance Estimated 67 mL/min (50-200); Estimated Glomerular Filt Rate 57 ml/min (>60); GFR (African American) 68 ML/MIN (>60); Globulin 4.8 g/dL (1.3-3.2); Glucose 98 mg/dl (74-100); Potassium 3.8 mmoL/L (3.5-5.1); Sodium 137 mmol/L (136-145); Total Protein,Serum 8.7 g/dl (6.3-8.2)
[2024-07-22] MEDS: IPRATROPIUM/ALBUTEROL 3 ML NEB 6 ML IH (01:53)
[2024-07-22 02:00] LABS: Troponin I < 0.01 ng/ml (0.00-0.034)
[2024-07-22 02:19] LABS: HIV Combo NEGATIVE (Negative)
[2024-07-22] MEDS: SODIUM CHLORIDE 0.9% 10ML SYR (RAD ONLY) 10 ML IV (02:19)
[2024-07-22] MEDS: IOPAMIDOL-370 (76%);100ML BOTTLE 70 ML IV (02:19)
[2024-07-22] MEDS: 0.9 % SODIUM CHLORIDE 50 ML VIAL IV (02:19)
[2024-07-22 02:28] LABS: Hepatitis C Ab Qual. W/ RFX NEGATIVE (Negative)
[2024-07-22 03:19] LABS: Adenovirus,PCR Not Detected (NotDetected); Bordetella Pertussis Not Detected (NotDetected); Chlamydophila Pneumoniae, PCR Not Detected (NotDetected); Coronavirus 19, PCR Not Detected (NotDetected); Coronavirus 229E Not Detected (NotDetected); Coronavirus NL63 Not Detected (NotDetected); Coronavirus OC43 Not Detected (NotDetected); Coronovirus HKU1,PCR Not Detected (NotDetected); Influenza A, PCR Not Detected (NotDetected); Influenza AH1, 2009 Not Detected (NotDetected); Influenza AH1, PCR Not Detected (NotDetected); Influenza AH3,PCR Not Detected (NotDetected); Influenza B, PCR Not Detected (NotDetected); Mycoplasma Pneumoniae, PCR Not Detected (NotDetected); Parainfluenza 1, PCR Not Detected (NotDetected); Parainfluenza 2, PCR Not Detected (NotDetected); Parainfluenza 3, PCR Not Detected (NotDetected); Parainfluenza 4, PCR Not Detected (NotDetected); Respiratory Syncytial Virus Not Detected (NotDetected); Rhinovirus/Enterovirus Not Detected (NotDetected)
[2024-07-22] MEDS: AZITHROMYCIN 500 MG in 0.9 % SODIUM CHLORIDE 250 ML 250 MG IV (03:47)
--- NOTE | 2024-07-22 04:11 | PC.NURSE ---
Pts BP 199/200 systolic. MD Noble aware
--- NOTE | 2024-07-22 04:12 | PC.NURSE ---
called report to Ashley DURAN
--- NOTE | 2024-07-22 04:36 | EXP.HP ---
History of Present Illness *Admission Date: 07/22/24 *Reason for visit:: Dyspnea *History of present illness: 58-year-old female presents to the ER with complaints of cough, decreased appetite, nausea, vomiting, diarrhea, body aches, subjective fevers for the last 6 days. Patient reports similar symptoms going through the house. Household members have rhinovirus. Patient reports she has had cough and vomiting, nonbloody, nonbilious emesis, diarrhea has been nonbloody, nonmelanotic. Worse abdominal pain and demonstrates to the epigastric and left upper quadrant area, she does not drink alcohol but does have a history of pancreatitis. She states she is not having any chest pain but is having productive cough that causes discomfort when she coughs. She reports a history of BRAULIO and asthma, she also has a history of CAD, hyperlipidemia, obesity, GERD. Denies dysuria or hematuria. No other complaints or concerns. In the emergency department patient was started on nasal cannula due to persistent hypoxia into the 80s. CTA demonstrated no PE or acute process. Due to suspicion of atypical pneumonia he was given azithromycin in the ER. Currently patient is having mild improvement of symptoms however is remaining on oxygen supplementation due to persistent hypoxia. Also endorsing low p.o. intake and frequent nausea and vomiting History independently obtained. Diagnostics and dependently interpreted. Discussed case with ER physician. Reviewed prior records. [facility] Disclaimer: The information contained in this section may have been updated after the patient was seen, as this information can be updated by other users. Medical History Encounter for pre-operative cardiovascular clearance Obstructive sleep apnea syndrome, severe Nasal septal spur GERD (gastroesophageal reflux disease) Deviated nasal septum Edema of both lower extremities History of 2019 novel coronavirus disease (COVID-19) Family history of lung cancer Stopped smoking with greater than 30 pack year history Lung nodule Asthma Migraine History of back pain History of gastroesophageal reflux (GERD) Congestive heart failure IBS (irritable bowel syndrome) Hyperlipidemia CAD (coronary artery disease) BRAULIO (obstructive sleep apnea) HTN (hypertension) Ex-smoker Morbid obesity Surgical History S/P insertion of intrathecal pump H/O bilateral salpingo-oophorectomy H/O: hysterectomy History of colonoscopy History of cholecystectomy Family History Other Breast cancer Colon cancer Family history of Alzheimer's disease Family history of COPD (chronic obstructive pulmonary disease) Family history of GERD Family history of TIAs Family history of acute congestive heart failure Family history of asthma Family history of diabetes mellitus type II Family history of hyperlipidemia Family history of hypertension Family history of hypothyroidism Family history of irritable bowel syndrome Family history of kidney stone Family history of migraine headaches Family history of myocardial infarction Heart disease Lung cancer Stroke Social History Smoking Status: Never smoker years smoked: 20 smoking status stop date: 18 years ago alcohol intake: never substance use type: denies use current occupational status: other Travel in the last 8 weeks?: None household members: spouse and children housing: house lives independently: No marital status: current occupational exposures/hazards: No caffeine: Yes Have you lived/traveled outside [place] in past 30 days?: No Contact w/someone who lives/traveled outside [place] past 30 days?: No Exposure to someone with infectious disease in past 14 days?: No Do you have a fever (greater than 100.4 F or 38 C)?: Yes Have you tested positive for COVID-19?: No Exposed to someone with COVID-19 in past 14 days?: No Do you have a sore throat?: No Do you have a cough?: Yes Do you have any weakness?: No Do you have any diarrhea?: No Are you experiencing any unusual bleeding?: No Do you have any muscle aches/pain?: No Do you have any abdominal pain?: No Are you experiencing loss of taste or smell?: No Other Medical History Have you received the Flu Vaccine for this season: Yes Have you received the Pneumonia Vaccine: Yes Review of Systems Review of Systems Review of systems:: pertinent systems reviewed and negative unless documented below Meds Home Medications and Allergies Home Medications ?Medication ?Instructions ?Recorded ?Confirmed ?Type latanoprost 0.005 % eye drops 1 drp Eye-Both DAILY 06/28/23 07/16/24 History omeprazole 20 mg capsule,delayed 20 mg PO BID gerd #60 caps 06/28/23 07/16/24 Rx release ropinirole 0.5 mg tablet See Rx Instructions .Route 12/06/23 07/16/24 Rx .COMPLEX 30 days #30 tabs azelastine 137 mcg (0.1 %) nasal 1 - 2 spray intranasal BID PRN 04/04/24 07/16/24 History spray Asthma brimonidine 0.2 % eye drops 1 drp Eye-Both DAILY 04/04/24 07/16/24 History cetirizine 10 mg tablet 10 mg PO DAILY 04/04/24 07/16/24 History dorzolamide 2 % eye drops 1 drp Eye-Both DAILY 04/04/24 07/16/24 History fluticasone propionate 110 110 mcg inhalation DAILY 04/04/24 07/16/24 History mcg/actuation HFA aerosol inhaler fluticasone propionate 50 1 - 2 spray intranasal DAILY 04/04/24 07/16/24 History mcg/actuation nasal spray,suspension multivitamin 1 tab PO DAILY 04/20/24 07/16/24 History zinc 10 mg tablet 10 mg PO DAILY 04/20/24 07/16/24 History losartan 50 mg tablet See Rx Instructions .Route 06/20/24 07/16/24 Rx .COMPLEX #30 tabs azithromycin 250 mg tablet See Rx Instructions PO .COMPLEX #6 07/16/24 07/16/24 Rx tabs benzonatate 100 mg capsule 100 mg PO TID PRN cough #30 caps 07/16/24 07/16/24 Rx levothyroxine 125 mcg tablet See Rx Instructions .Route 07/16/24 07/16/24 Rx .COMPLEX #30 tabs methylprednisolone 4 mg tablets in See Rx Instructions PO PER PKG DIR 07/16/24 07/16/24 Rx a dose pack (Medrol (Luis Angel)) #21 tabs New Prescriptions to Start Prescriptions: Allergies Allergy/AdvReac Type Severity Reaction Status Date / Time Penicillins Allergy Hives Verified 07/16/24 12:59 topiramate (From Topamax) Allergy Rash Verified 07/16/24 12:59 Exam Data for Last 24 hours Vital signs and Labs for Last 24 Hours: Temp Pulse Resp BP Pulse Ox O2 Del Method O2 Flow Rate 98.9 F 109 H 17 199/95 H 90 L Nasal Cannula 2 07/22/24 04:18 07/22/24 04:18 07/22/24 04:18 07/22/24 04:18 07/22/24 03:01 07/22/24 04:18 07/22/24 04:18 Laboratory Results - last 24 hr 07/22/24 00:47: VBG pH 7.35, VBG pCO2 57.0 H, VBG pO2 37.0, VBG HCO3 31.0 H, VBG Total CO2 32.7 H, VBG O2 Saturation 69.2, VBG Base Excess 5.4 H, VBG Lactic Acid 1.5 07/22/24 01:11: WBC 12.6 H, RBC 4.74, Hgb 13.0, Hct 40.7, MCV 85.9, MCH 27.4, MCHC 31.9, RDW 15.9, Plt Count 403, MPV 9.7, Neut % (Auto) 81.3 H, Lymph % (Auto) 9.4 L, Valley % (Auto) 7.7, Eos % (Auto) 0.8, Baso % (Auto) 0.4, Neut # (Auto) 10.2 H, Lymph # (Auto) 1.2, Valley # (Auto) 1.0, Eos # (Auto) 0.1, Baso # (Auto) 0.1, Sodium 137, Potassium 3.8, Chloride 99, Carbon Dioxide 32 H, Anion Gap 9.8, BUN 11, Creatinine 1.00, Estimated Creat Clear 67, Estimated GFR 57 L, Est GFR ( Amer) 68, Glucose 98, Calcium 8.9, Total Bilirubin 0.7, AST 34, ALT 30, Alkaline Phosphatase 106, Troponin I < 0.01, Total Protein 8.7 H, Albumin 3.9, Globulin 4.8 H, Albumin/Globulin Ratio 0.8 L, Lipase 122, HCV Ab [place] w/Rflx PCR Qn Negative, HIV Ag/Ab Combo Qual Negative I & O for Last 24 hours: Intake & Output 07/19/24 07/20/24 07/21/24 07/22/24 23:59 23:59 23:59 23:59 Weight 147.871 kg Constitutional Constitutional: no acute distress and obese *Routine HEENT Exam Head: Present normocephalic Eye: Present EOMI and PERRL ENT: Present mucous membranes moist *Routine Neck Exam Neck: Present supple; Absent lymphadenopathy *Routine Respiratory Exam Respiratory: Present CTA bilaterally *Routine Cardiovascular Exam Cardiovascular: Present RRR *Routine Abdominal Exam Abdominal: Present soft and normoactive bowel sounds; Absent tenderness *Routine Rectal Exam Rectal:: deferred *Routine Genitalia Exam Genitalia:: deferred *Routine Extremities Exam Extremities: Absent cyanosis, clubbing or edema *Routine Skin Exam Skin: Present warm; Absent rash *Routine Neurological Exam Neurological: Present alert and oriented X3 Assessment and Plan *Assessment and plan (1) Nausea, vomiting, and diarrhea: Status: Acute Category: Medical Code(s): R11.2 - Nausea with vomiting, unspecified; R19.7 - Diarrhea, unspecified (2) Acute hypoxic respiratory failure: Status: Acute Category: Medical Code(s): J96.01 - Acute respiratory failure with hypoxia (3) Flu-like symptoms: Status: Acute Category: Medical Code(s): R68.89 - Other general symptoms and signs (4) Obstructive sleep apnea syndrome, severe: Status: Acute Category: Medical Code(s): G47.33 - Obstructive sleep apnea (adult) (pediatric) (5) GERD (gastroesophageal reflux disease): Status: Acute Qualifiers: Esophagitis presence: with esophagitis Esophagitis bleeding: without hemorrhage Qualified Code(s): K21.00 - Gastro-esophageal reflux disease with esophagitis, without bleeding Category: Medical Code(s): K21.9 - Gastro-esophageal reflux disease without esophagitis Plan 4-year-old female presenting nonspecific generalized infectious symptoms primarily upper respiratory. So far no determined etiology, may be atypical pneumonia. Received azithromycin in the ER we will continue that and supportive management Acute hypoxic respiratory failure - Oxygen supplementation - DuoNebs as needed - Respiratory panel - Supportive management Flulike illness - Supportive management BRAULIO - CPAP Obesity - Complicates all aspects of care
[2024-07-22 05:00] LABS: POC Glucose,Bedside 95 (70-110)
--- NOTE | 2024-07-22 05:01 | PC.NURSE ---
patient arrived to ICU unit from ED via stretcher @04:20am
[2024-07-22 05:16] LABS: Human Metapneumovirus Detected (NotDetected)
[2024-07-22 06:28] LABS: Albumin Level 3.3 g/dl (3.5-5.0); Chloride 100 mmol/L (98-107); Sodium 134 mmol/L (136-145)
[2024-07-22 06:29] LABS: Basophils % 0.3 % (0.1-2.0); Eosinophils % 0.2 % (0.1-12.0); Hematocrit 36.6 % (37.0-47.0); Immature Granulocytes # 0.06 10^3uL; Immature Granulocytes % 0.5 %; Lymphocytes # 1.5 K/mm3 (0.7-4.5); Lymphocytes % 11.3 % (10-50); Mean Corpuscular HGB Conc 30.1 g/dL (31.8-35.4); Mean Corpuscular Hemoglobin 26.3 pg (27.0-31.2); Mean Corpuscular Volume 87.4 fl (81-99); Mean Platelet Volume 9.8 fl (7.4-10.4); Monocytes # 1.1 K/mm3 (0.1-1.0); Monocytes % 8.8 % (1.7-9.3); Neutrophils # 10.2 K/mm3 (1.8-7.8); Neutrophils % 78.9 % (37.0-80.0); Nucleated Red Blood Cells # 0 10^3/uL; Nucleated Red Blood Cells % 0 %; Platelet Count 346 K/mm3 (142-424); Potassium 3.5 mmoL/L (3.5-5.1); Red Blood Count 4.19 M/mm3 (4.20-5.40); Red Cell Distribution Width 16.3 % (11.5-17.5); Red Cell Distribution Width-SD 51.7 fL; White Blood Count 12.9 K/mm3 (4.8-10.8)
[2024-07-22 06:31] LABS: Alanine Aminotransferase 26 U/L (12-78); Albumin/Globulin Ratio 0.8 (1.1-1.8); Alkaline Phosphatase 108 U/L (38-126); Anion Gap 5.5 mEq/L (5-15); Aspartate Amino Transferase 27 U/L (14-36); Bilirubin,Total 0.3 mg/dl (0.2-1.3); Blood Urea Nitrogen 9 mg/dl (7-17); Calcium 8.7 mg/dl (8.4-10.2); Carbon Dioxide 32 mmol/L (22.0-30.0); Cholesterol 104 mg/dl (140-200); Creatinine Clearance Estimated 72 mL/min (50-200); Estimated Glomerular Filt Rate 64 ml/min (>60); GFR (African American) 77 ML/MIN (>60); Glucose 102 mg/dl (74-100); Phosphorous 3.3 mg/dl (2.5-4.5); Total Protein,Serum 7.3 g/dl (6.3-8.2); Triglycerides 77 mg/dl (30-150); VLDL Cholesterol 15 mg/dL (0-40)
[2024-07-22 06:32] LABS: Chol/HDL Ratio 4.2 (1-3.5); HDL Cholesterol 25 mg/dl (40-60); Magnesium 1.6 mg/dl (1.6-2.3)
[2024-07-22 07:01] LABS: INR 1.06 (0.9-1.1); Prothrombin Time 11.7 seconds (10.1-12.5)
[2024-07-22 07:57] LABS: Coronavirus 19, PCR Not Detected (NotDetected); Human Rhinovirus Not Detected (NotDetected); Influenza A, PCR Not Detected (NotDetected); Influenza B, PCR Not Detected (NotDetected); Respiratory Syncytial Virus Not Detected (NotDetected)
[2024-07-22] MEDS: ACETAMINOPHEN 325MG TAB 650 MG PO (09:02)
[2024-07-22 09:03] LABS: Troponin I 0.01 ng/ml (0.00-0.034)
[2024-07-22] MEDS: ENOXAPARIN 40MG/0.4ML SYRINGE 40 MG SUBCUT (09:03)
[2024-07-22 09:10] LABS: Troponin I 0.01 ng/ml (0.00-0.034)
--- NOTE | 2024-07-22 09:26 | PC.NURSE ---
0902 Pt o2 sats noted to be 82 on monitor, with good spo2 pleth. upon entering room for med pass at 0903 it was noted that pt o2 had been removed. pt had previously been on 4lpm at start of shift with sats 91-93. Pt states that md removed o2 during assessment. 2lpm/nc was reapplied at this time. pt sats 88-90
--- NOTE | 2024-07-22 10:09 | HMH.PHAINT1 ---
Pharmacy Intervention Comments: MEDICATION RECONCILIATION COMPLETE USING EXTERNAL PHARMACY FILL HISTORY AND MOST RECENT MD OFFICE VISIT NOTES.
--- NOTE | 2024-07-22 11:32 | EXP.DC.SUM ---
General Admission date:: 07/22/24 HPI HPI HPI: 58-year-old female presents to the ER with complaints of cough, decreased appetite, nausea, vomiting, diarrhea, body aches, subjective fevers for the last 6 days. Patient reports similar symptoms going through the house. Household members have rhinovirus. Patient reports she has had cough and vomiting, nonbloody, nonbilious emesis, diarrhea has been nonbloody, nonmelanotic. Worse abdominal pain and demonstrates to the epigastric and left upper quadrant area, she does not drink alcohol but does have a history of pancreatitis. She states she is not having any chest pain but is having productive cough that causes discomfort when she coughs. She reports a history of BRAULIO and asthma, she also has a history of CAD, hyperlipidemia, obesity, GERD. Denies dysuria or hematuria. No other complaints or concerns. In the emergency department patient was started on nasal cannula due to persistent hypoxia into the 80s. CTA demonstrated no PE or acute process. Due to suspicion of atypical pneumonia he was given azithromycin in the ER. Currently patient is having mild improvement of symptoms however is remaining on oxygen supplementation due to persistent hypoxia. Also endorsing low p.o. intake and frequent nausea and vomiting History independently obtained. Diagnostics and dependently interpreted. Discussed case with ER physician. Reviewed prior records. Hospital Course Hospital Course Hospital Course: Kenna Bergman is a 58-year-old female presenting presented with nonspecific upper respiratory symptoms and was found to be hypoxic. During hospital course she was found to be positive for human metapneumovirus. #Acute hypoxic respiratory failure #Human metapneumovirus #Acute viral syndrome ? CTA chest without acute findings. Looks much more comfortable today, however requiring 3 L at rest for desaturations to 88% on room air. ? Discharged with 3 L oxygen and doxycycline for 4 more days for possible atypical pneumonia. BRAULIO - CPAP nightly. Obesity - Complicates all aspects of care. Exam Data for Last 24 hours Vital signs and Labs for Last 24 Hours: Temp Pulse Resp BP Pulse Ox O2 Del Method O2 Flow Rate 98.4 F 85 18 121/70 82 L Nasal Cannula 2 07/22/24 08:00 07/22/24 11:25 07/22/24 11:25 07/22/24 11:25 07/22/24 11:25 07/22/24 11:25 07/22/24 11:25 Laboratory Results - last 24 hr 07/22/24 00:47: VBG pH 7.35, VBG pCO2 57.0 H, VBG pO2 37.0, VBG HCO3 31.0 H, VBG Total CO2 32.7 H, VBG O2 Saturation 69.2, VBG Base Excess 5.4 H, VBG Lactic Acid 1.5 07/22/24 01:11: WBC 12.6 H, RBC 4.74, Hgb 13.0, Hct 40.7, MCV 85.9, MCH 27.4, MCHC 31.9, RDW 15.9, Plt Count 403, MPV 9.7, Neut % (Auto) 81.3 H, Lymph % (Auto) 9.4 L, Callahan % (Auto) 7.7, Eos % (Auto) 0.8, Baso % (Auto) 0.4, Neut # (Auto) 10.2 H, Lymph # (Auto) 1.2, Callahan # (Auto) 1.0, Eos # (Auto) 0.1, Baso # (Auto) 0.1, Sodium 137, Potassium 3.8, Chloride 99, Carbon Dioxide 32 H, Anion Gap 9.8, BUN 11, Creatinine 1.00, Estimated Creat Clear 67, Estimated GFR 57 L, Est GFR ( Amer) 68, Glucose 98, Calcium 8.9, Total Bilirubin 0.7, AST 34, ALT 30, Alkaline Phosphatase 106, Troponin I < 0.01, Total Protein 8.7 H, Albumin 3.9, Globulin 4.8 H, Albumin/Globulin Ratio 0.8 L, Lipase 122, HCV Ab EAST[place] w/Rflx PCR Qn Negative, HIV Ag/Ab Combo Qual Negative 07/22/24 03:15: Chlamy pneumoniae PCR Not detected, Adenovirus (PCR) Not detected, B. pertussis DNA (PCR) Not detected, Coronavirus OC43 (PCR) Not detected, Coronavirus HKU1 (PCR) Not detected, Coronavirus 229E (PCR) Not detected, SARS-CoV-2 (PCR) Not detected, Coronavirus NL63 (PCR) Not detected, Human Metapneumovir PCR Detected A, Influenza A (H1) PCR Not detected, Influ A (H1N1/09) PCR Not detected, Influenza A (H3) PCR Not detected, Influenza Type A (PCR) Not detected, Influenza Type B (PCR) Not detected, M. pneumoniae (PCR) Not detected, Parainfluenza 1 (PCR) Not detected, Parainfluenza 2 (PCR) Not detected, Parainfluenza 3 (PCR) Not detected, Parainfluenza 4 (PCR) Not detected, RSV (PCR) Not detected, Entero/Rhino (PCR) Not detected 07/22/24 03:57: SARS-CoV-2 (PCR) Not detected, Influenza Type A (PCR) Not detected, Influenza Type B (PCR) Not detected, RSV (PCR) Not detected, Rhinovirus (PCR) Not detected 07/22/24 04:52: POC Glucose 95 07/22/24 05:30: WBC 12.9 H, RBC 4.19 L, Hgb 11.0 L D, Hct 36.6 L, MCV 87.4, MCH 26.3 L, MCHC 30.1 L, RDW 16.3, Plt Count 346, MPV 9.8, Neut % (Auto) 78.9, Lymph % (Auto) 11.3, Callahan % (Auto) 8.8, Eos % (Auto) 0.2, Baso % (Auto) 0.3, Neut # (Auto) 10.2 H, Lymph # (Auto) 1.5, Callahan # (Auto) 1.1 H, Eos # (Auto) 0.0, Baso # (Auto) 0.0, PT 11.7, INR 1.06, Sodium 134 L, Potassium 3.5, Chloride 100, Carbon Dioxide 32 H, Anion Gap 5.5, BUN 9, Creatinine 0.90, Estimated Creat Clear 72, Estimated GFR 64, Est GFR ( Amer) 77, Glucose 102 H, Calcium 8.7, Phosphorus 3.3, Magnesium 1.6, Total Bilirubin 0.3, AST 27, ALT 26, Alkaline Phosphatase 108, Troponin I 0.01, Total Protein 7.3, Albumin 3.3 L D, Globulin 4.0 H, Albumin/Globulin Ratio 0.8 L, Triglycerides 77, Cholesterol 104 L, LDL Cholesterol Direct 43.20 L, VLDL Cholesterol 15, HDL Cholesterol 25 L, Cholesterol/HDL Ratio 4.2 H 07/22/24 07:55: Troponin I 0.01 I & O for Last 24 hours: Intake & Output 06/05/07/20/24 07/21/24 07/22/24 23:59 23:59 23:59 23:59 Intake Total 495 / 495 Output Total 450 / 450 Balance 45 / 45 Weight 149.005 kg Constitutional Constitutional: no acute distress and obese *Routine HEENT Exam Head: Present normocephalic Eye: Present EOMI and PERRL ENT: Present mucous membranes moist *Routine Neck Exam Neck: Present supple; Absent lymphadenopathy *Routine Respiratory Exam Respiratory: Present CTA bilaterally *Routine Cardiovascular Exam Cardiovascular: Present RRR *Routine Abdominal Exam Abdominal: Present soft and normoactive bowel sounds; Absent tenderness *Routine Extremities Exam Extremities: Absent cyanosis, clubbing or edema *Routine Skin Exam Skin: Present warm; Absent rash *Routine Neurological Exam Neurological: Present alert and oriented X3 Results Data Completed and Pending Labs on day of discharge: Labs from last 24 hours 07/22/24 07/22/24 07/22/24 07:55 05:30 04:52 WBC 12.9 H RBC 4.19 L Hgb 11.0 L D Hct 36.6 L MCV 87.4 MCH 26.3 L MCHC 30.1 L RDW 16.3 Plt Count 346 MPV 9.8 Neut % (Auto) 78.9 Lymph % (Auto) 11.3 Callahan % (Auto) 8.8 Eos % (Auto) 0.2 Baso % (Auto) 0.3 Neut # (Auto) 10.2 H Lymph # (Auto) 1.5 Callahan # (Auto) 1.1 H Eos # (Auto) 0.0 Baso # (Auto) 0.0 PT 11.7 INR 1.06 VBG pH VBG pCO2 VBG pO2 VBG HCO3 VBG Total CO2 VBG O2 Saturation VBG Base Excess VBG Lactic Acid Sodium 134 L Potassium 3.5 Chloride 100 Carbon Dioxide 32 H Anion Gap 5.5 BUN 9 Creatinine 0.90 Estimated Creat Clear 72 Estimated GFR 64 Est GFR ( Amer) 77 Glucose 102 H POC Glucose 95 Calcium 8.7 Phosphorus 3.3 Magnesium 1.6 Total Bilirubin 0.3 AST 27 ALT 26 Alkaline Phosphatase 108 Troponin I 0.01 0.01 Total Protein 7.3 Albumin 3.3 L D Globulin 4.0 H Albumin/Globulin Ratio 0.8 L Triglycerides 77 Cholesterol 104 L LDL Cholesterol Direct 43.20 L VLDL Cholesterol 15 HDL Cholesterol 25 L Cholesterol/HDL Ratio 4.2 H Lipase Chlamy pneumoniae PCR Adenovirus (PCR) B. pertussis DNA (PCR) Coronavirus OC43 (PCR) Coronavirus HKU1 (PCR) Coronavirus 229E (PCR) SARS-CoV-2 (PCR) Coronavirus NL63 (PCR) HCV Ab [place] w/Rflx PCR Qn HIV Ag/Ab Combo Qual Human Metapneumovir PCR Influenza A (H1) PCR Influ A (H1N1/09) PCR Influenza A (H3) PCR Influenza Type A (PCR) Influenza Type B (PCR) M. pneumoniae (PCR) Parainfluenza 1 (PCR) Parainfluenza 2 (PCR) Parainfluenza 3 (PCR) Parainfluenza 4 (PCR) RSV (PCR) Rhinovirus (PCR) Entero/Rhino (PCR) 07/22/24 07/22/24 07/22/24 03:57 03:15 01:11 WBC 12.6 H RBC 4.74 Hgb 13.0 Hct 40.7 MCV 85.9 MCH 27.4 MCHC 31.9 RDW 15.9 Plt Count 403 MPV 9.7 Neut % (Auto) 81.3 H Lymph % (Auto) 9.4 L Callahan % (Auto) 7.7 Eos % (Auto) 0.8 Baso % (Auto) 0.4 Neut # (Auto) 10.2 H Lymph # (Auto) 1.2 Callahan # (Auto) 1.0 Eos # (Auto) 0.1 Baso # (Auto) 0.1 PT INR VBG pH VBG pCO2 VBG pO2 VBG HCO3 VBG Total CO2 VBG O2 Saturation VBG Base Excess VBG Lactic Acid Sodium 137 Potassium 3.8 Chloride 99 Carbon Dioxide 32 H Anion Gap 9.8 BUN 11 Creatinine 1.00 Estimated Creat Clear 67 Estimated GFR 57 L Est GFR ( Amer) 68 Glucose 98 POC Glucose Calcium 8.9 Phosphorus Magnesium Total Bilirubin 0.7 AST 34 ALT 30 Alkaline Phosphatase 106 Troponin I < 0.01 Total Protein 8.7 H Albumin 3.9 Globulin 4.8 H Albumin/Globulin Ratio 0.8 L Triglycerides Cholesterol LDL Cholesterol Direct VLDL Cholesterol HDL Cholesterol Cholesterol/HDL Ratio Lipase 122 Chlamy pneumoniae PCR Not detected Adenovirus (PCR) Not detected B. pertussis DNA (PCR) Not detected Coronavirus OC43 (PCR) Not detected Coronavirus HKU1 (PCR) Not detected Coronavirus 229E (PCR) Not detected SARS-CoV-2 (PCR) Not detected Not detected Coronavirus NL63 (PCR) Not detected HCV Ab [place] w/Rflx PCR Qn Negative HIV Ag/Ab Combo Qual Negative Human Metapneumovir PCR Detected A Influenza A (H1) PCR Not detected Influ A (H1N1/09) PCR Not detected Influenza A (H3) PCR Not detected Influenza Type A (PCR) Not detected Not detected Influenza Type B (PCR) Not detected Not detected M. pneumoniae (PCR) Not detected Parainfluenza 1 (PCR) Not detected Parainfluenza 2 (PCR) Not detected Parainfluenza 3 (PCR) Not detected Parainfluenza 4 (PCR) Not detected RSV (PCR) Not detected Not detected Rhinovirus (PCR) Not detected Entero/Rhino (PCR) Not detected 07/22/24 00:47 WBC RBC Hgb Hct MCV MCH MCHC RDW Plt Count MPV Neut % (Auto) Lymph % (Auto) Callahan % (Auto) Eos % (Auto) Baso % (Auto) Neut # (Auto) Lymph # (Auto) Callahan # (Auto) Eos # (Auto) Baso # (Auto) PT INR VBG pH 7.35 VBG pCO2 57.0 H VBG pO2 37.0 VBG HCO3 31.0 H VBG Total CO2 32.7 H VBG O2 Saturation 69.2 VBG Base Excess 5.4 H VBG Lactic Acid 1.5 Sodium Potassium Chloride Carbon Dioxide Anion Gap BUN Creatinine Estimated Creat Clear Estimated GFR Est GFR ( Amer) Glucose POC Glucose Calcium Phosphorus Magnesium Total Bilirubin AST ALT Alkaline Phosphatase Troponin I Total Protein Albumin Globulin Albumin/Globulin Ratio Triglycerides Cholesterol LDL Cholesterol Direct VLDL Cholesterol HDL Cholesterol Cholesterol/HDL Ratio Lipase Chlamy pneumoniae PCR Adenovirus (PCR) B. pertussis DNA (PCR) Coronavirus OC43 (PCR) Coronavirus HKU1 (PCR) Coronavirus 229E (PCR) SARS-CoV-2 (PCR) Coronavirus NL63 (PCR) HCV Ab [place] w/Rflx PCR Qn HIV Ag/Ab Combo Qual Human Metapneumovir PCR Influenza A (H1) PCR Influ A (H1N1/09) PCR Influenza A (H3) PCR Influenza Type A (PCR) Influenza Type B (PCR) M. pneumoniae (PCR) Parainfluenza 1 (PCR) Parainfluenza 2 (PCR) Parainfluenza 3 (PCR) Parainfluenza 4 (PCR) RSV (PCR) Rhinovirus (PCR) Entero/Rhino (PCR) DS: Diagnosis Discharge Diagnosis (1) Nausea, vomiting, and diarrhea: Status: Acute Code(s): R11.2 - Nausea with vomiting, unspecified; R19.7 - Diarrhea, unspecified (2) Acute hypoxic respiratory failure: Status: Acute Code(s): J96.01 - Acute respiratory failure with hypoxia (3) Flu-like symptoms: Status: Acute Code(s): R68.89 - Other general symptoms and signs (4) Obstructive sleep apnea syndrome, severe: Status: Acute Code(s): G47.33 - Obstructive sleep apnea (adult) (pediatric) (5) GERD (gastroesophageal reflux disease): Status: Acute Code(s): K21.9 - Gastro-esophageal reflux disease without esophagitis Qualifiers: Esophagitis bleeding: without hemorrhage Esophagitis presence: with esophagitis Qualified Code(s): K21.00 - Gastro-esophageal reflux disease with esophagitis, without bleeding Meds Home Medications and Allergies Home Medications ?Medication ?Instructions ?Recorded ?Confirmed ?Type latanoprost 0.005 % eye drops 1 drp Eye-Both HS 06/28/23 08/03/24 History brimonidine 0.2 % eye drops 1 drp Eye-Both DAILY 04/04/24 08/03/24 History cetirizine 10 mg tablet 10 mg PO DAILY 04/04/24 08/03/24 History dorzolamide 2 % eye drops 1 drp Eye-Both DAILY 04/04/24 08/03/24 History multivitamin 1 tab PO DAILY 04/20/24 08/03/24 History zinc 10 mg tablet 10 mg PO DAILY 04/20/24 08/03/24 History doxycycline monohydrate 100 mg 100 mg PO BID 5 days #10 tabs 07/22/24 08/03/24 Rx tablet levothyroxine 125 mcg tablet 125 mcg PO DAILYDM 07/22/24 08/03/24 History omeprazole 20 mg capsule,delayed 20 mg PO BID 07/22/24 08/03/24 History release ondansetron 4 mg disintegrating 4 mg PO Q8H PRN nausea and 07/22/24 08/03/24 Rx tablet vomiting #14 tabs ropinirole 0.5 mg tablet 0.5 mg PO PM 07/22/24 08/03/24 History New Prescriptions to Start Prescriptions: doxycycline monohydrate Anselmo Bell ondansetron Anselmo Bell Allergies Allergy/AdvReac Type Severity Reaction Status Date / Time Penicillins Allergy Hives Verified 07/25/24 11:57 topiramate (From Topamax) Allergy Rash Verified 07/25/24 11:57 Discharge Plan Disposition Patient Disposition: Home, Self-Care Condition: Fair Follow up Plan Follow up with: iGta Muhammad APRN [Primary Care Provider, Medical] - Enter time for follow up Referral Note: please call tomorrow Tuesday to schedule your hospital follow up. Problems: Acute hypoxic respiratory failure Prescriptions/Medication Reconciliation: New doxycycline monohydrate 100 mg tablet 100 mg PO BID 5 Days Qty: 10 0RF ondansetron 4 mg tablet,disintegrating 4 mg PO Q8H PRN (Reason: nausea and vomiting) Qty: 14 0RF Continued latanoprost 0.005 % drops 1 drp Eye-Both HS cetirizine 10 mg tablet 10 mg PO DAILY Patient Comments: TAKE 1 TABLET BY MOUTH ONCE DAILY brimonidine 0.2 % drops 1 drp Eye-Both DAILY Patient Comments: USE 1 DROP IN BOTH EYES DAILY IN THE MORNING WAIT 15 MINUTES BEFORE USING OTHER DROPS FOR BEST RESULTS dorzolamide 2 % drops 1 drp Eye-Both DAILY Patient Comments: INSTILL 1 DROPS IN THE MORNING INTO EACH EYE WAIT 15 MIN BETWEEN OTHER DROPS multivitamin Tablet 1 tab PO DAILY zinc 10 mg Tablet 10 mg PO DAILY ropinirole 0.5 mg tablet 0.5 mg PO PM Rx Instructions: TAKE 1 TABLET BY MOUTH 1-3 HOURS BEFORE BEDTIME NIGHTLY levothyroxine 125 mcg tablet 125 mcg PO DAILYDM omeprazole 20 mg capsule,delayed release(DR/EC) 20 mg PO BID Discontinued fluticasone propionate 50 mcg/actuation spray,suspension 2 spray intranasal DAILY Patient Comments: USE 1 TO 2 SPRAY(S) IN EACH NOSTRIL ONCE DAILY Problem Reconciliation Problems Reviewed?: Yes Patient Discharge Instructions Patient Instructions: DI for Viral Syndrome, DI for Nausea -- Adult, Stop Light Heart Failure Print Language: Kiswahili Providers Primary Care Provider: Gita Muhammad Admit Provider: Anselmo Bell Attending Provider: Anselmo Bell
[2024-07-22 11:33] LABS: POC Glucose,Bedside 115 (70-110)
--- NOTE | 2024-07-22 12:24 | PC.NURSE ---
[employer] contacted for patient's home oxygen equipment.
--- NOTE | 2024-07-23 11:34 | SW/DCPLANNER ---
Spoke with patient on the phone. Patient stated that she is still feeling rough but nothing like she was. Patient stated that she did not crop picker her new medicine because it cost too much. Patient stated that she will call her PCP and schedule a follow up appointment. Patient stated that she has no concerns or questions at this time. Jazzmine He
== END 2024-07-22 13:12 | disposition home or self-care (01) ==
LOC: ER 07-22 03:57 → ICU 07-22 04:08
PROVIDERS: Student in an Organized Health Care Education/Training Program; Admitting Provider Student in an Organized Health Care Education/Training Program; Emergency Provider Emergency Medicine; PCP Nurse Practitioner Family; Visit Provider Student in an Organized Health Care Education/Training Program
DX: J96.01 Acute respiratory failure with hypoxia (principal); R68.89 Other general symptoms and signs; G47.33 Obstructive sleep apnea (adult) (pediatric); R19.7 Diarrhea, unspecified; K21.00 Gastro-esophageal reflux disease with esophagitis, without bleeding; I11.0 Hypertensive heart disease with heart failure; I50.9 Heart failure, unspecified; J45.909 Unspecified asthma, uncomplicated; K57.30 Diverticulosis of large intestine without perforation or abscess without bleeding; I45.2 Bifascicular block; E27.9 Disorder of adrenal gland, unspecified; K42.9 Umbilical hernia without obstruction or gangrene; B34.8 Other viral infections of unspecified site; E66.9 Obesity, unspecified; Z97.8 Presence of other specified devices; Z99.89 Dependence on other enabling machines and devices; Z87.891 Personal history of nicotine dependence; Z68.42 Body mass index [BMI] 45.0-49.9, adult; Z88.0 Allergy status to penicillin; Z88.8 Allergy status to other drugs, medicaments and biological substances; Z79.899 Other long term (current) drug therapy
CPT/HCPCS: 0223U; 36415; 71275; 74177; 80053; 80061; 82803; 82962; 83690; 83735; 84100; 84484; 85025; 85610; 86803; 87389; 87631; 87633; 94618; 96372; 96374; 96375; 96376; 99285; G0378; J0456; J1650; J2405; J7050; J7120; Q9967

== ENCOUNTER 2024-08-03 09:40 | Day surgery (SDC) | payer MEDICARE, SELFPAY ==
--- NOTE | 2024-08-03 09:43 | EXP.PM.HP ---
History of Present Illness *Admission Date: 08/03/24 *Reason for visit:: Intrathecal refill; DDD *History of present illness: Same [facility] Disclaimer: The information contained in this section may have been updated after the patient was seen, as this information can be updated by other users. Medical History Encounter for pre-operative cardiovascular clearance Obstructive sleep apnea syndrome, severe Nasal septal spur GERD (gastroesophageal reflux disease) Deviated nasal septum Edema of both lower extremities History of 2019 novel coronavirus disease (COVID-19) Family history of lung cancer Stopped smoking with greater than 30 pack year history Lung nodule Asthma Migraine History of back pain History of gastroesophageal reflux (GERD) Congestive heart failure IBS (irritable bowel syndrome) Hyperlipidemia CAD (coronary artery disease) BRAULIO (obstructive sleep apnea) HTN (hypertension) Ex-smoker Morbid obesity Surgical History S/P insertion of intrathecal pump H/O bilateral salpingo-oophorectomy H/O: hysterectomy History of colonoscopy History of cholecystectomy Family History Other Breast cancer Colon cancer Family history of Alzheimer's disease Family history of COPD (chronic obstructive pulmonary disease) Family history of GERD Family history of TIAs Family history of acute congestive heart failure Family history of asthma Family history of diabetes mellitus type II Family history of hyperlipidemia Family history of hypertension Family history of hypothyroidism Family history of irritable bowel syndrome Family history of kidney stone Family history of migraine headaches Family history of myocardial infarction Heart disease Lung cancer Stroke Social History Smoking Status: Never smoker years smoked: 20 smoking status stop date: 18 years ago alcohol intake: never substance use type: denies use current occupational status: other Travel in the last 8 weeks?: None household members: spouse and children housing: house lives independently: No marital status: current occupational exposures/hazards: No caffeine: Yes Have you lived/traveled outside [place] in past 30 days?: No Contact w/someone who lives/traveled outside [place] past 30 days?: No Exposure to someone with infectious disease in past 14 days?: No Do you have a fever (greater than 100.4 F or 38 C)?: No Have you tested positive for COVID-19?: No Exposed to someone with COVID-19 in past 14 days?: No Do you have a sore throat?: No Do you have a cough?: No Do you have any weakness?: No Do you have any diarrhea?: No Are you experiencing any unusual bleeding?: No Do you have any muscle aches/pain?: No Do you have any abdominal pain?: No Are you experiencing loss of taste or smell?: No Other Medical History Have you received the Flu Vaccine for this season: No Have you received the Pneumonia Vaccine: Yes Review of Systems Review of Systems Review of systems:: pertinent systems reviewed and negative unless documented below Review of systems (narrative): Review of Systems: General: No recent weight changes, no fever, no sleep disturbances Respiratory: No cough, no shortness of air, no recurring pulmonary infections Cardiovascular/peripheral vascular: No chest pain, no palpitations, no edema, no shortness of breath Gastrointestinal: No new onset incontinence, normal bowel movements reported Genitourinary: No new onset incontinence Musculoskeletal: Chronic back pain Psychiatric: [Normal mood/affect] Neurological: [Denies weakness in extremities], [denies balance issues] Meds Home Medications and Allergies Home Medications ?Medication ?Instructions ?Recorded ?Confirmed ?Type latanoprost 0.005 % eye drops 1 drp Eye-Both HS 06/28/23 07/25/24 History brimonidine 0.2 % eye drops 1 drp Eye-Both DAILY 04/04/24 07/25/24 History cetirizine 10 mg tablet 10 mg PO DAILY 04/04/24 07/25/24 History dorzolamide 2 % eye drops 1 drp Eye-Both DAILY 04/04/24 07/25/24 History multivitamin 1 tab PO DAILY 04/20/24 07/25/24 History zinc 10 mg tablet 10 mg PO DAILY 04/20/24 07/25/24 History doxycycline monohydrate 100 mg 100 mg PO BID 5 days #10 tabs 07/22/24 07/24/24 Rx tablet levothyroxine 125 mcg tablet 125 mcg PO DAILYDM 07/22/24 07/25/24 History omeprazole 20 mg capsule,delayed 20 mg PO BID 07/22/24 07/25/24 History release ondansetron 4 mg disintegrating 4 mg PO Q8H PRN nausea and 07/22/24 07/25/24 Rx tablet vomiting #14 tabs ropinirole 0.5 mg tablet 0.5 mg PO PM 07/22/24 07/25/24 History New Prescriptions to Start Prescriptions: Allergies Allergy/AdvReac Type Severity Reaction Status Date / Time Penicillins Allergy Hives Verified 07/25/24 11:57 topiramate (From Topamax) Allergy Rash Verified 07/25/24 11:57 Exam Constitutional Constitutional: no acute distress *Routine HEENT Exam Head: Present normocephalic and atraumatic Eye: Present PERRL ENT: Present mucous membranes moist *Routine Neck Exam Neck: Present supple *Routine Respiratory Exam Respiratory: Present CTA bilaterally *Routine Cardiovascular Exam Cardiovascular: Present RRR *Routine Abdominal Exam Abdominal: Present soft *Routine Rectal Exam Rectal:: deferred *Routine Genitalia Exam Genitalia:: deferred Routine Back/Spine/Pelvis Exam Back/Spine: Present pain with flexion *Routine Skin Exam Skin: Present intact, dry and warm *Routine Neurological Exam Neurological: Present alert and oriented X3 Routine Psychiatric Exam Psychiatric: Present normal affect and normal thought process Assessment and Plan *Assessment and plan (1) Degenerative disc disease: Status: Acute Category: Medical Plan Patient has been instructed to contact the clinic with any concerns before the next appointment. Dr. Canchola has reviewed this note and agrees with this plan of care. This note was dictated using voice recognition software and make contain errors or omissions. All injections are used with Lidocaine, Bupivacaine and dexamethasone. Occasionally urine drug screen is needed to verify patient's compliance with our office pain contract. This is ordered based off specific treatments related to chronic pain with the potential to abuse certain medications.
--- NOTE | 2024-08-03 09:44 | EXP.PAIN.PRO ---
Procedure Date: 08/03/24 Time: 10:11 Anesthesiologist:: Merly Ruiz APRN Complications:: None Pre-procedure Diagnosis:: Degenerative disc disease of lumbar spine, chronic pain syndrome Post-procedure Diagnosis:: Same Indications for Procedure:: Patient is a pleasant 58-year-old female who presents today for intrathecal refill and reprogram. Today she rates her pain a 0 out of 10. Patient states overall she is still been doing really well with her medication and her pump. Patient does state that she still has a burning sensation occasionally when she has more pressure up against that pump site. Patient states it is not continuous but is bothersome when it happens. She states is not 1 specific spot however goes all around the pump itself. Patient does make mention that she has recently been hospitalized for pneumonia and is still trying to recover from that. Patient was given at home oxygen to use at night. Patient does also make mention that they are restarting the process back again to see about getting her for a sleep study for possible sleep apnea. Patient states that she did this all before and then had some issues and never actually got the device. Patient is currently managed with Dilaudid 10 mg/mL with a daily dose of 3.798 mg/day. Her Andres has been reviewed and is appropriate. Physical Exam: General: Alert and oriented x3, no acute distress, pleasant and cooperative Lungs: Respirations even and unlabored, symmetrical chest expansion Eyes: PERRL Musculoskeletal: Flexion and extension of lumbar [spine] somewhat guarded secondary to pain, [antalgic gait noted] Neurological: Speech clear, no gross sensory deficit Procedure Details:: Informed consent was obtained and the risk and benefits of the procedure were explained to the patient. The patient had noninvasive monitoring placed including noninvasive blood pressure cuff and pulse oximeter. Patient's pump was interrogated. The area over the pump was cleansed with chlorhexidine as a cleansing solution. In sterile fashion the pump was accessed with a 22-gauge needle. Approximately 4.1 mls of the pump solution was removed and discarded appropriately. The pump was then refilled with 20 mL's of Dilaudid 10 mg/mL. The needle was withdrawn and a bandage was placed over the puncture site. The infusion rate was reprogrammed and continued at its current dosage. The patient tolerated well with no complication. Plan and Disposition:: Patient tolerated the procedure well with no complications and was discharged neurologically intact. I will order the patient a compounded cream. We did also discuss the possibility of trigger point injections in the future. We will continue to monitor this. Patient will return to clinic on or before their next intrathecal refill date. We will see the patient back in the clinic at the next intrathecal refill. Patient has been instructed to contact the clinic with any concerns before the next appointment. Dr. Canchola has reviewed this note and agrees with this plan of care. This note was dictated using voice recognition software and make contain errors or omissions. -- It Is medically necessary for this patient to continue to have their intrathecal pump refilled at regular intervals. This patient had an intrathecal pain pump implanted after meeting criteria of chronic intractable pain for greater than 3 months and failing conservative treatments. Patient has committed and been compliant to the treatment plan and all planned follow up care. Since implantation of the intrathecal pain pump, the patient has had decreased pain and been more functional. Oral medications have been reduced including intake of oral opioids. Patient continues to do well with intrathecal therapy with decrease in pain symptoms and increase in functional status. Stopping intrathecal medications can lead to life threatening withdrawal, seizures, cardiac arrest, severe pain, and possible . Pumps that are not refilled at regular intervals can be damages and cause and need for replacement. We continually titrate dose and concentration to optimize pain relief and function. We are limited in concentration for certain drugs to safely deliver medications through the pump and stay within the recommendations from the Polyanalgesic Consensus Committee Guidelines. Depending on dose and concentration these pumps may need to be refilled sooner than 3 months as we titrate. A UDS is needed to verify patient's compliance with our office pain contract. This is ordered based off specific treatments related to chronic pain with the potential to abuse certain medications.
[2024-08-03 09:52] VITALS: BP 117/46; PULSE 75; RESP 18; TEMP 36.5; O2SAT 99; BMI 45.1
[2024-08-03 10:03] VITALS: BP 139/65; PULSE 71; RESP 18; O2SAT 98
[2024-08-03 10:16] VITALS: BP 133/77; PULSE 67; RESP 16; O2SAT 99
== END 2024-08-03 10:16 | disposition home or self-care (01) ==
PROVIDERS: PCP Nurse Practitioner Family; Visit Provider Nurse Practitioner Family
DX: Z45.1 Encounter for adjustment and management of infusion pump (principal); M51.16 Intervertebral disc disorders with radiculopathy, lumbar region; G89.4 Chronic pain syndrome; G47.33 Obstructive sleep apnea (adult) (pediatric); K21.9 Gastro-esophageal reflux disease without esophagitis; Z87.891 Personal history of nicotine dependence; J45.909 Unspecified asthma, uncomplicated; E78.5 Hyperlipidemia, unspecified; I25.10 Atherosclerotic heart disease of native coronary artery without angina pectoris; I10 Essential (primary) hypertension; E66.01 Morbid (severe) obesity due to excess calories; Z68.42 Body mass index [BMI] 45.0-49.9, adult; Z79.899 Other long term (current) drug therapy; Z79.890 Hormone replacement therapy; Z88.0 Allergy status to penicillin; Z88.8 Allergy status to other drugs, medicaments and biological substances
CPT/HCPCS: 62370

== ENCOUNTER 2024-09-04 11:50 | Day surgery (SDC) | payer MEDICARE, SELFPAY ==
[2024-09-04 11:59] VITALS: BP 138/53; PULSE 70; RESP 18; O2SAT 95; BMI 45.4
[2024-09-04 12:03] VITALS: BP 138/53; PULSE 70; RESP 18; O2SAT 95
[2024-09-04 12:15] VITALS: BP 129/62; PULSE 68; O2SAT 96
--- NOTE | 2024-09-04 12:22 | EXP.PAIN.PRO ---
Procedure Date: 09/04/24 Time: 12:00 Anesthesiologist:: Pee Lambert CRNA Complications:: None Pre-procedure Diagnosis:: Degenerative disc lumbar spine multilevels. Lumbar radiculopathy. Lumbar postlaminectomy syndrome. Lumbar spondylosis. Multilevel lumbar facet arthropathy. Post-procedure Diagnosis:: Same Indications for Procedure:: Patient is a very pleasant 58-year-old female who comes our clinic today for intrathecal pain pump interrogation and refill. Patient is currently being managed with hydromorphone 10 mg/mL at a rate of 4.554 mg/day. She is doing very well with her current settings. She is not reporting any side effects or complications. She is not requesting any changes. Procedure Details:: Details of the procedure were explained to the patient. The patient taken procedure room placed in the prone position on the fluoroscopy table. The area over the pump was cleaned using chlorhexidine as a cleansing solution. Using fluoroscopy guidance the pump was accessed with ease using a 22-gauge 2 inch needle. 4.7 mL of solution was withdrawn and discarded appropriate. The pump was then filled incrementally under fluoroscopy with 20 cc of a solution containing hydromorphone 10 mg/mL. Patient tolerated procedure without difficulty. There were no complications. Plan and Disposition:: Patient was discharged without incident.
== END 2024-09-04 12:15 | disposition home or self-care (01) ==
LOC: SC.PAIN 11:50
PROVIDERS: PCP Nurse Practitioner Family; Visit Provider Nurse Anesthetist, Certified Registered
DX: Z45.1 Encounter for adjustment and management of infusion pump (principal); M51.16 Intervertebral disc disorders with radiculopathy, lumbar region; M47.26 Other spondylosis with radiculopathy, lumbar region; M96.1 Postlaminectomy syndrome, not elsewhere classified; J45.909 Unspecified asthma, uncomplicated; I25.10 Atherosclerotic heart disease of native coronary artery without angina pectoris; I11.0 Hypertensive heart disease with heart failure; I50.9 Heart failure, unspecified; K21.9 Gastro-esophageal reflux disease without esophagitis; E78.5 Hyperlipidemia, unspecified; E66.01 Morbid (severe) obesity due to excess calories; Z68.42 Body mass index [BMI] 45.0-49.9, adult; G47.33 Obstructive sleep apnea (adult) (pediatric); Z87.891 Personal history of nicotine dependence; Z88.0 Allergy status to penicillin; Z88.8 Allergy status to other drugs, medicaments and biological substances; Z79.890 Hormone replacement therapy; Z79.899 Other long term (current) drug therapy
CPT/HCPCS: 95991

== ENCOUNTER 2024-09-15 19:36 | Emergency (ER) | payer MEDICARE, SELFPAY ==
[2024-09-15 19:37] VITALS: BP 143/76; PULSE 75; RESP 18; TEMP 36.6; O2SAT 96; BMI 45.1
--- OUTSIDE RECORDS SUMMARY | 2024-09-15 19:44 | XMS_ITS | Clinical Summary ---
Author Organization [facility] Address [address] [place] [address] Care Team Providers Care Dumping Machine Operator Name Role Phone Provider, No Known Primary Care Provider Unavail able Social History Tobacco Use Types Packs/Day Years Used Date Smoking Tobacco: Never Assessed Abuse Screen Answer Date Recorded Unsafe at Home or Work/School Not on file Feels Threatened by Someone? Not on file 10/2022 Does Anyone Keep You from Co ntacting Others or Doint Things Outside the Home? Not on file 11/22/2022 Physical Sign of Abuse Present Not on file 1 Housing Stability Answer Date Recorded Current Living Arrangements Not on file 10/2022 Potentially Unsafe Housing Conditions Not on anand e 11/22/2022 Family and Community Support Answer Conrado e Recorded Help with Day-to-Day Activities Not on file 11/22/2022 Lonely or Isolated Not on file 11/22/2022 Employment Answer Date Recorded Do you want help finding or keeping work or a chad b? Not on file 11/22/2022 Disabilities Answer Date Recorded Concentrating, Remembering, or Making Decisions Difficulty Not on file 11/22/2022 Doing Errands Independently Difficulty Not on fi le 11/22/2022 Education Answer Date Recorded Help with school or training? Not on file Preferred Language Not on file 11/22/2022 Comments Unknown Sex and Gender Information Value Date Recorded Sex Assigned at Not on file Legal Sex Female 1:03 PM EDT Gender Identity Not on file Sexual Orientation Not on file Plan of Treatment Health Maintenance Due Date Last Done Comments Annual Gynecologic Pelvic and Breast Exam 1965 TDAP/TD VACCINES (1 - Tdap) 10/02/1982 MAMMOGRAM 2003 COLOGUARD 10/02/2008 COLON CANCER SCREENING 5 YEAR SIGMOIDOSCOPY 10/02/2008 COLONOSCOPY 10/02/2008 COLORECTAL CANCER SCREENING 10/02/2008 CT COLONOGRAPHY 10/02/2008 FECAL OCCULT BLOOD TEST 10/02/2008 FIT Testing (1 year) 10/02/2008 Pneumococcal Vaccine 50+ (1 of 1 - PCV) 10/02/2013 ZOSTER VACCINE (1 of 2) 10/02/2013 ANNUAL PHYSICAL 12/03/2016 HEPATITIS C SCREENING 12/03/2016 COVID-19 Vaccine ( - season) 2023 INFLUENZA VACCINE 11/14/2024 [facility] [employer] [facility] Care Teams Dumping Machine Operator Relationship Specialty Start Date End Date Provider, No Known [facility] [place] [address] PCP - General 12/02/16
--- OUTSIDE RECORDS SUMMARY | 2024-09-15 19:44 | XMS_ITS | Patient Health Record ---
Author Organization [facility] Address [address] [facility] [address] [place] [address] Care Team Providers Care Counter Checker Name Role Phone Teena Longo Unavailable [phone] Allergies Allergen (clinical drug ingredient) Drug/Non Drug Allergy documented on EMR Reaction Allergy Type Onset Date Status metoprolol TOPROL (uncoded) Unspecified Allergy 02/20/2009 Active PENICILLIN V POTASSIUM (PENICILLIN V POTASSIUM TAB Unspecified Drug Allergy 02/20/2009 Active Reason For Referral No Information Social History Social History Sexual History: Social Info Question Answer Notes Sexual History Had sex in the past 12 months (vaginal, oral, or anal)? Yes Drugs/Alcohol: Social Info Question Answer Notes Drugs Have you used drugs other than those for medical reasons in the past 12 months? No Alcohol Screen Did you have a drink containing alcohol in the past year? Yes Points 0 Interpretation Negative Tobacco Use: Social Info Question Answer Notes Tobacco Use/Smoking Are you a former smoker Tobacco use other than smoking: Are you an other tobac co user? No Problems Problem Type SNOMED Code ICD Code Onset Dates Problem Status W/U Status Risk Notes Problem Epimenorrhea (69034896) Epimenorrhea (N92.0) 900 Active confirmed MENORRHAGIA Problem Dysmenorrhea (305892366) Adolescent dysmenorrhea (N94.6) 900 Active confirmed DYSMENORRHEA Plan Of Treatment No Information Medical (General) History Medical History History ICD Code SOCIAL HX: non smoker denies alcohol or recreational drug use SOCIAL HX: non smoker denies alcohol or recreational drug use fibroids ovarian cysts thyroid disease obesity rheumatic fever uti MOBIC 15 MG ORAL TABLET TOPAMAX 50 MG ORAL TABLET COMBIGAN SOLUTION LUMIGAN SOLN PROVERA 10 MG ORAL TABLET IMITREX 100 MG ORAL TABLET SYNTHROID 75 MCG ORAL TABLET WELLBUTRIN XL 150 MG ORAL TABLET EXTENDE D RELEASE 24 HOUR PRILOSEC 20 MG ORAL CAPSULE DELAYED RELE ASE Surgical History Surgery Date(Month/Year) tubal ligation knee sx gallbladder
--- OUTSIDE RECORDS SUMMARY | 2024-09-15 19:44 | XMS_ITS | Clinical Summary ---
Author Organization [facility] Address [address] [place] [address] Care Team Providers Care Muck Farmer Name Role Phone Jb Gitazechariah Elmore APRN Primary Care Provider [phone] Allergies Active Allergy Reactions Criticality Noted Date [...] times a day. 7 Active HYDROcodone-angie taminophen ([place]) 5-325 MG tablet TAKE 1 TABLET BY [...] Screening 1965 [facility]-Medicare Annual Wellness (AWV) 1965 [facility]-/Child/Adol SDOH Screenings 1965 [facility]- SDOH Screenings 10/02/1981 [facility]-Adult SDOH Screenings 10/02/1981 [facility]-Zoster Vaccines (1 of 2) 10/02/1982 CT Colonography 10/02/2008 Colonoscopy 10/02/2008 FIT-DNA 10/02/2008 FIT 10/02/2008 FOBT 10/02/2008 Sigmoidoscopy 10/02/2008 [facility]-Colorectal Cancer Screening 10/02/2008 [facility]-Breast Cancer Screening 10/02/2013 [facility]-Pneumococcal Vaccine: 50+ Years (1 of 1 - PCV) 10/02/2013 [facility]-RSV Vaccine: 60+ Years or (1 - Risk 60-74 years 1-dose series) 2023 [id number] Vaccine ( - 2023- season) 2023 03/03/2021, 08/20/2020, 07/23/2020 [facility]-Influenza Vaccine (#1) 10/15/202411/19, 11/08/2016, 12/05/2015, Additional history exists [facility]-DTaP,Tdap,and Td [...] Non Reactive 08/18/2022 4:22 PM EDT [facility] Comment:Screening for HIV 1 & 2 antibodies, and P24 antigen is NONREACTIVE. No confirmatory testing is required. Blood Venous blood specimen / Unknown Venipuncture / Unknown 08/18/2022 2:34 PM EDT 08/18/2022 2:34 PM EDT February Palmira LIQUOR GRINDER MILL OPERATOR LAB BLOOD ORDERABLES Final Result Performing Organization Address City/[facility] de Phone Number [facility] [address] [place] [id number] * Acute Hepatitis Panel (08/18/2022 2:34 PM EDT) Hepatitis B Surf Antigen Negative Negative 08/18/2022 5:18 PM EDT [facility] Hepatitis C Antibody Negative Negative 08/18/2022 5:18 PM EDT [facility] Hepatitis A Antibody IgM Negative Negative 08/18/2022 5:18 PM EDT [facility] Hepatitis B Core Antibody IgM Negative Negative 08/18/2022 5:18 PM EDT [facility] Blood Venous blood specimen / Unknown Venipuncture / Unknown 08/18/2022 2:34 PM EDT 08/18/2022 2:34 PM EDT February Palmira [employer]QU[employer] GRINDER MILL OPERATOR LAB BLOOD ORDERABLES Final Result Performing Organization Address City/[facility]/ZIP Co de Phone Number [facility] [address] [place] [address] from Last 3 Months or Most Recently Relevant to Health Maintenance Insurance [facility] MEDICARE Care Teams Muck Farmer Relationship Specialty Start Date End Date Gita Muhammad APRN [address] [place] [id number] PCP - General 06/25/22
--- NOTE | 2024-09-15 19:57 | CT_ITS ---
PROCEDURE INFORMATION: Exam: CT Abdomen And Pelvis With Contrast Exam date and time: 09/15/2024 9:01 PM Age: 58 years old Clinical indication: Other: Pain pump pain, swelling, fluid leaking (r flank); Additional info: Pain pump pain, swelling, fluid leaking (r flank) TECHNIQUE: Imaging protocol: Computed tomography of the abdomen and pelvis with contrast. Radiation optimization: All CT scans at this facility use at least one of these dose optimization techniques: automated exposure control; mA and/or kV adjustment per patient size (includes targeted exams where dose is matched to clinical indication); or iterative reconstruction. Contrast material: ISOVUE; Contrast volume: 75 ml; Contrast route: IV; COMPARISON: CT ABDOMEN PELVIS W CON 07/22/2024 2:16 AM FINDINGS: Tubes, catheters and devices: Right buttock electronic device with spinal lead. Adjacent artifact. Lungs: Several pulmonary nodules measure up to 0.6 cm. Liver: Hepatic steatosis. Too small to characterize hypodensities in the liver Gallbladder and biliary ducts: The gallbladder is not identified Pancreas: No ductal dilation. No peripancreatic inflammatory changes. Spleen: Unremarkable. Adrenal glands: 2.3 cm left adrenal probable adenoma Kidneys and ureters: No hydronephrosis. Unremarkable renogram. Stomach and bowel: Colonic diverticulosis without evidence of acute diverticulitis. Appendix: No CT evidence of acute appendicitis. Intraperitoneal space: No evidence of pneumoperitoneum. Vasculature: No abdominal aortic aneurysm. Lymph nodes: Prominent in size and number retroperitoneal lymph nodes. Urinary bladder: Contrast enter the urinary bladder Reproductive: Hysterectomy Bones/joints: No suspicious osseous lesion. No acute fracture. Soft tissues: Moderate-sizefat containing umbilical hernia. Other findings: Limited study secondary to patient body habitus. IMPRESSION: 1. Right buttock electronic device with spinal lead. Adjacent artifact. Nonobstructive bowel gas pattern. 2. Several pulmonary nodules measure up to 0.6 cm. For patients at low risk (minimal or absent history of smoking and of other known risk factors), recommend CT Chest at 3-6 months, then consider CT Chest at 18-24 months. For patients at high risk (history of smoking or of other known risk factors), recommend CT Chest at 3-6 months, then CT Chest at 18-24 months. (Reference: Tami) References: Tami Slaughter et al. Guidelines for Management of Incidental Pulmonary Nodules Detected on CT Images: From the Fleischner Society 2017. Radiology. 2017;284(1):228-243.
[2024-09-15 20:01] VITALS: BP 130/64; PULSE 84; O2SAT 96
[2024-09-15] MEDS: LACTATED RINGERS 1000ML 1,000 ML 999 ML IV (20:04)
--- NOTE | 2024-09-15 20:12 | HMH.EDGENADL ---
Discharge Plan Disposition Patient Disposition: Xfer Other Prescriptions Prescriptions: No Action latanoprost 0.005 % drops 1 drp Eye-Both HS cetirizine 10 mg tablet 10 mg PO DAILY Patient Comments: TAKE 1 TABLET BY MOUTH ONCE DAILY brimonidine 0.2 % drops 1 drp Eye-Both DAILY Patient Comments: USE 1 DROP IN BOTH EYES DAILY IN THE MORNING WAIT 15 MINUTES BEFORE USING OTHER DROPS FOR BEST RESULTS dorzolamide 2 % drops 1 drp Eye-Both DAILY Patient Comments: INSTILL 1 DROPS IN THE MORNING INTO EACH EYE WAIT 15 MIN BETWEEN OTHER DROPS levothyroxine 125 mcg tablet See Rx Instructions .ROUTE .COMPLEX Qty: 30 2RF Dose Instruction: Take 1 tablet by mouth once daily Rx Instructions: Take 1 tablet by mouth once daily multivitamin Tablet 1 tab PO DAILY ropinirole 0.5 mg tablet 0.5 mg PO PM Rx Instructions: TAKE 1 TABLET BY MOUTH 1-3 HOURS BEFORE BEDTIME NIGHTLY omeprazole 20 mg capsule,delayed release(DR/EC) 20 mg PO BID Referrals Follow up/Referrals: Gita Muhammad APRN [Primary Care Provider, Medical] - See instructions Clinical Impressions Clinical Impression: Infected foreign body Instructions Patient Instructions: DI for Laceration Repair Print Language Print Language: Bhutanese Discharge ED Provider: Sreekanth Garcia General Adult HPI General Chief complaint: Wound/Laceration Stated complaint: Pain pump not working right Time Seen by Provider: 09/15/24 19:41 Mode of Arrival: Ambulatory Source of Information: Patient Description of Symptoms (Recalled from ER Triage Doc. by RN): Had pain pump changed in March, has been having leaking from it since. Reports medication leaking out when it is filled. Pain clinic said to keep and eye on it and go to ED if needed. Patient concerned for infection History of Present Illness HPI narrative: Patient is a 58-year-old female with a history of an intrathecal pain pump that was placed in March of this year presenting today with pain waking also with chills and a headache. She states that since the initial procedure in March was performed that she has had some intermittent leaking and this has been closely managed and monitored by Dr. Sch[facility] clinic. She got to the point where it significantly slowed down and she almost had an entire month where there was no leaking. She denies having had any significant headaches positional or otherwise during that time. However on August 03 she had another procedure to refill the reservoir of her pain pump after which she again had some leaking the seem to improve up until about 3 days ago when she developed significant worsening of pain around the site also with a change in character of the drainage which she stated was more bloody in nature not as clear as it has been. She did have a severe headache yesterday that was not positional but has since gotten better. No headache at the moment but she does endorse some mild neck stiffness. No fever subjectively but she has had chills. Related Data Home Medications ?Medication ?Instructions ?Recorded ?Confirmed latanoprost 0.005 % eye drops 1 drp Eye-Both HS 06/28/23 09/15/24 brimonidine 0.2 % eye drops 1 drp Eye-Both DAILY 04/04/24 09/15/24 cetirizine 10 mg tablet 10 mg PO DAILY 04/04/24 09/15/24 dorzolamide 2 % eye drops 1 drp Eye-Both DAILY 04/04/24 09/15/24 multivitamin 1 tab PO DAILY 04/20/24 09/15/24 omeprazole 20 mg capsule,delayed 20 mg PO BID 07/22/24 09/15/24 release ropinirole 0.5 mg tablet 0.5 mg PO PM 07/22/24 09/15/24 Previous Rx's ?Medication ?Instructions ?Recorded levothyroxine 125 mcg tablet See Rx Instructions .Route 08/10/24 .COMPLEX #30 tabs Allergies Allergy/AdvReac Type Severity Reaction Status Date / Time Penicillins Allergy Hives Verified 07/25/24 11:57 topiramate (From Topamax) Allergy Rash Verified 07/25/24 11:57 PFSH [facility] Disclaimer: The information contained in this section may have been updated after the patient was seen, as this information can be updated by other users. Medical History Encounter for pre-operative cardiovascular clearance Obstructive sleep apnea syndrome, severe Nasal septal spur GERD (gastroesophageal reflux disease) Deviated nasal septum Edema of both lower extremities History of 2019 novel coronavirus disease (COVID-19) Family history of lung cancer Stopped smoking with greater than 30 pack year history Lung nodule Asthma Migraine History of back pain History of gastroesophageal reflux (GERD) Congestive heart failure IBS (irritable bowel syndrome) Hyperlipidemia CAD (coronary artery disease) BRAULIO (obstructive sleep apnea) HTN (hypertension) Ex-smoker Morbid obesity Surgical History S/P insertion of intrathecal pump H/O bilateral salpingo-oophorectomy H/O: hysterectomy History of colonoscopy History of cholecystectomy Family History Other Breast cancer Colon cancer Family history of Alzheimer's disease Family history of COPD (chronic obstructive pulmonary disease) Family history of GERD Family history of TIAs Family history of acute congestive heart failure Family history of asthma Family history of diabetes mellitus type II Family history of hyperlipidemia Family history of hypertension Family history of hypothyroidism Family history of irritable bowel syndrome Family history of kidney stone Family history of migraine headaches Family history of myocardial infarction Heart disease Lung cancer Stroke Social History Smoking Status: Unknown if ever smoked years smoked: 20 smoking status stop date: 18 years ago alcohol intake: never substance use type: denies use current occupational status: other Travel in the last 8 weeks?: None household members: spouse and children housing: house lives independently: No marital status: current occupational exposures/hazards: No caffeine: Yes Have you lived/traveled outside [place] in past 30 days?: No Contact w/someone who lives/traveled outside US past 30 days?: No Exposure to someone with infectious disease in past 14 days?: No Do you have a fever (greater than 100.4 F or 38 C)?: No Have you tested positive for COVID-19?: No Exposed to someone with COVID-19 in past 14 days?: No Do you have a sore throat?: No Do you have a cough?: No Do you have any weakness?: No Do you have any diarrhea?: No Are you experiencing any unusual bleeding?: No Do you have any muscle aches/pain?: No Do you have any abdominal pain?: No Are you experiencing loss of taste or smell?: No Other Medical History Have you received the Flu Vaccine for this season: No Have you received the Pneumonia Vaccine: No ROS Obtained: Yes All systems reviewed & no additional complaints except as documented Physical Exam General General appearance: alert Respiratory Respiratory exam: Present normal lung sounds bilaterally Cardiovascular Cardiovascular exam: Present regular rate Back Exam Back 1 view image:  1. Site of insertion of pain pump 2. On the right lateral aspect of the incision there is some exposed subcutaneous tissue and erythema and tenderness with evidence of recent discharge but no obvious purulence or clear to draining fluid she is quite tender around this area no obvious fluctuance or significant pathologic erythema surrounding the site Neurological Exam Neurological exam: Present alert and oriented X3 Medical Decision Making Medical Records Screening: Per USPSTF and CDC recommendations, given the prevalence of disease in our region, it is our hospital?s policy to screen for HIV and viral Hepatitis for all patients aged 18 and over and those with ongoing risk factors. Andres Inquiry Pt receiving controlled substance: No Vital Signs: 09/15/24 19:37 09/15/24 20:01 09/15/24 21:56 Temperature 97.8 F Temperature Source Oral Pulse Rate 84 90 Pulse Rate [Radial] 75 Respiratory Rate 18 Blood Pressure 130/64 141/66 H Blood Pressure [Right Arm] 143/76 H Blood Pressure Mean 86 87 Blood Pressure Mean [Right Arm] 98 02 Sat by Pulse Oximetry 96 96 98 Oxygen Delivery Method Room Air 09/15/24 22:00 Temperature Temperature Source Pulse Rate 91 H Pulse Rate [Radial] Respiratory Rate 17 Blood Pressure 145/59 H Blood Pressure [Right Arm] Blood Pressure Mean 87 Blood Pressure Mean [Right Arm] 02 Sat by Pulse Oximetry 98 Oxygen Delivery Method Lab Data Lab results reviewed: Yes I reviewed the patient's lab results. Lab Results 09/15/24 20:15: WBC 7.9, RBC 4.58, Hgb 12.5, Hct 40.3, MCV 88.0, MCH 27.3, MCHC 31.0 L, RDW 16.6, Plt Count 333, MPV 9.7, Neut % (Auto) 70.6, Lymph % (Auto) 16.4, [place] % (Auto) 9.0, Eos % (Auto) 3.2, Baso % (Auto) 0.4, Neut # (Auto) 5.6, Lymph # (Auto) 1.3, [place] # (Auto) 0.7, Eos # (Auto) 0.3, Baso # (Auto) 0.0, Sodium 138, Potassium 4.2, Chloride 101, Carbon Dioxide 30, Anion Gap 11.2, BUN 15, Creatinine 1.00, Estimated Creat Clear 67, Estimated GFR 57 L, Est GFR ( Amer) 68, Glucose 99, Calcium 9.6, Total Bilirubin 0.4, AST 36, ALT 21, Alkaline Phosphatase 145 H, C-Reactive Protein 16.2 H, Total Protein 8.8 H, Albumin 4.3, Globulin 4.5 H, Albumin/Globulin Ratio 1.0 L, Procalcitonin 0.058 09/15/24 20:15 09/15/24 20:15 Orders (Tests/Meds): ED MEDICATIONS Discontinued Medications Generic Name Dose Route Start Last Admin Trade Name Freq PRN Reason Stop Dose Admin Lactated Ringer's 1,000 mls @ 999 mls/hr 09/15/24 20:00 09/15/24 20:04 Lactated Ringer's 1000 Ml Bag IV 09/15/24 21:00 999 mls/hr .Q1H1M PEDRO Administration Iopamidol 75 ml 09/15/24 21:00 09/15/24 21:01 Iopamidol-370 (76%);100ml Bottle IV 09/15/24 21:01 75 ml ONCE ONE Administration Sodium Chloride 10 ml 09/15/24 21:00 09/15/24 21:01 Sodium Chloride 0.9% 10ml Syr (Rad Only) IV 09/15/24 21:01 10 ml ONCE ONE Administration ORDERS Category Date Time Status CT abdomen pelvis w con Stat Cat Scan 09/15/24 19:57 Completed POCUS Point of Care (ER Only) Stat Exams 09/15/24 19:46 Completed CBC w/Auto Diff [Complete Blood Count Auto Diff] Stat Lab 09/15/24 20:15 Completed CMP [Comprehensive Metabolic Panel] Stat Lab 09/15/24 20:15 Completed CRP [C-Reactive Protein] Stat Lab 09/15/24 20:15 Completed Lactate Venous Stat Lab 09/15/24 20:15 Ordered Procalcitonin Stat Lab 09/15/24 20:15 Completed Blood Culture Stat Micro 09/15/24 20:45 Received Medical Decision Narrative: 58-year-old female with above history and physical differential includes medication leakage from the device itself, CSF leaking, infected foreign body around the intrathecal pain pump which could be an extension into the CSF causing meningeal encephalitis. Patient is well-appearing at the moment does not have any significant meningismus on my exam nor did she have a significant headache and she is afebrile no other signs or symptoms of sepsis just from an exam standpoint. Will get blood work including inflammatory markers and also will get a CT scan to see if there is any other extensive tracking of fluid deeper to what I can see on an ultrasound. At a minimum I believe that we will be covering this patient for antibiotics however patient may need to be at a site where she has infectious disease as this could extend into her meninges/CSF and may require pain pump removal. Will reassess after this initial workup is complete. Reassessment 10:[address] scan performed which I personally interpreted shows no significant abnormalities surrounding the pain pump. Radiology read consistent with this as well. Labs essentially unremarkable aside from a mildly elevated CRP. At this point I cannot rule out an infection which could communicate with her intrathecal space. She has no signs or symptoms of meningitis at this point is not septic. However after discussing with the patient as well as her hospital medicine doctor here we do not believe we have the services available here to manage this appropriately. Specifically the anesthesiologist who comes here once a week does not do inpatient consults here is not on-call right now. Additionally we do not have infectious disease if there is a desire to try to treat through this with antibiotics. And the patient does not want to follow-up outpatient. 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 I am not at the moment concerned about bacterial meningitis however the patient is very concerned does not want to follow-up outpatient which is reasonable at this point. There is clearly some pain and tenderness and some abnormal soft tissue findings and fluid on bedside ultrasound and this could be an infection even though she looks very good from a systemic standpoint at the moment. I spoke with Dr. Hansen at [facility] who accepted the patient given the fact that they have a multidisciplinary team that can approach this problem In fact that her hospital medicine doctor was not comfortable managing the patient here at our hospital which was reasonable. Procedures Miscellaneous Procedure Procedure Performed: Limited soft tissue ultrasound Indication: Pain around insertion site of intrathecal pain pump Identified structures: Location: Right posterior flank Findings: There is subcutaneous fluid that is tracking there also appears to be fluid that is communicating with the lateral aspect of the wound several centimeters deep around the pain pump itself and there is a trace amount of fluid circumferentially around the foreign body itself Impression: Extensive subcutaneous edema and cobblestoning around the pain pump itself with an area on the most lateral aspect of the pain pump that has a fluid collection that is communicating with the external aspect of the body differential includes medication that is leaking CSF leaking and/or inflammatory/infectious process Images were saved to permanent archive The study was technically adequate Soft Tissue CPT Codes: CPT Neck: 78330-73 CPT Upper extremity: 40069-99 CPT Axilla: 66828-19 CPT Chest wall: 41064-90 CPT Breast: 81651-94-MQ/LT (complete), 83159-16-GG/LT (limited), CPT Upper Back: 39350-19 CPT Lower Back: 91415-90 CPT Abdominal Wall: 30140-38 CPT Pelvic Wall: 02908-82 CPT Lower Extremity: 91031-85 CPT Other Soft Tissue: 85569-52 This study was performed by me, and I personally interpreted all images/videos. Based on my clinical judgement, these images were adequate and did not necessitate further imaging. Ultrasound-guided IV Indication difficult IV access Patient was placed in the supine position was prepped and draped in sterile fashion. 20-gauge 48 mm Angiocath was used with axial and long axis planes on the ultrasound under direct visual guidance. The tip of the needle was observed being inserted directly into the vein itself and catheter was advanced under direct guidance. No significant complications. Critical Care Critical Care Time Critical Care Time: No
[2024-09-15 20:27] LABS: Hematocrit 40.3 % (37.0-47.0); Hemoglobin 12.5 g/dL (12.2-16.2); Immature Granulocytes % 0.4 %; Mean Corpuscular HGB Conc 31.0 g/dL (31.8-35.4); Mean Corpuscular Hemoglobin 27.3 pg (27.0-31.2); Mean Corpuscular Volume 88.0 fl (81-99); Nucleated Red Blood Cells % 0 %; Platelet Count 333 K/mm3 (142-424); Red Blood Count 4.58 M/mm3 (4.20-5.40); Red Cell Distribution Width-SD 53.6 fL; White Blood Count 7.9 K/mm3 (4.8-10.8)
[2024-09-15 20:39] LABS: Alanine Aminotransferase 21 U/L (12-78); Albumin Level 4.3 g/dl (3.5-5.0); Albumin/Globulin Ratio 1.0 (1.1-1.8); Alkaline Phosphatase 145 U/L (38-126); Anion Gap 11.2 mEq/L (5-15); Aspartate Amino Transferase 36 U/L (14-36); Bilirubin,Total 0.4 mg/dl (0.2-1.3); Blood Urea Nitrogen 15 mg/dl (7-17); Calcium 9.6 mg/dl (8.4-10.2); Carbon Dioxide 30 mmol/L (22.0-30.0); Chloride 101 mmol/L (98-107); Creatinine Clearance Estimated 67 mL/min (50-200); Creatinine,Serum 1.00 mg/dl (0.52-1.04); Estimated Glomerular Filt Rate 57 ml/min (>60); GFR (African American) 68 ML/MIN (>60); Globulin 4.5 g/dL (1.3-3.2); Glucose 99 mg/dl (74-100); Potassium 4.2 mmoL/L (3.5-5.1); Sodium 138 mmol/L (136-145); Total Protein,Serum 8.8 g/dl (6.3-8.2)
[2024-09-15 20:44] LABS: C-Reactive Protein 16.2 mg/L (0-4)
[2024-09-15 20:58] LABS: Procalcitonin 0.058 ng/mL (0.0-2.0)
[2024-09-15] MEDS: SODIUM CHLORIDE 0.9% 10ML SYR (RAD ONLY) 10 ML IV (21:01)
[2024-09-15] MEDS: IOPAMIDOL-370 (76%);100ML BOTTLE 75 ML IV (21:01)
[2024-09-15 21:56] VITALS: BP 141/66; PULSE 90; O2SAT 98
[2024-09-15 22:00] VITALS: BP 145/59; PULSE 91; RESP 17; O2SAT 98
[2024-09-15 22:24] VITALS: BP 145/59; PULSE 91; RESP 17; TEMP 36.6; O2SAT 98
== END 2024-09-15 22:53 | disposition other institution (70) ==
PROVIDERS: Emergency Provider Student in an Organized Health Care Education/Training Program; PCP Nurse Practitioner Family
DX: T85.618A Breakdown (mechanical) of other specified internal prosthetic devices, implants and grafts, initial encounter (principal); R51.9 Headache, unspecified; R50.9 Fever, unspecified
CPT/HCPCS: 96360; 74177; 80053; 84145; 85025; 86140; 87040; 96361; 99285; J7120; Q9967

== ENCOUNTER 2024-09-17 13:42 | Outpatient (POV) | payer MEDICARE, SELFPAY ==
--- OUTSIDE RECORDS SUMMARY | 2024-09-15 23:52 | XMS_ITS | Encounter Summary ---
Author Organization [facility] Address [address] [place] [address] Care Team Providers Care Machine Castings Plasterer Name Role Phone Gita Muhammad APRN Primary Care Provider +1- [phone] Reason for Visit * Reason Comments Back Pain Encounter Details Date Type Department Care Team ([facility] st Contact Info) Description 09/15/2024 11:52 PM EDT - 09/16/2024 3:48 AM EDT Emergency PAV A Emergency Department [address] [place] [address] Philip King MD [address] [place] [address] Right-sided low back pain without sciatica, unspecified [...] (three) times a day. 05/14/2016 HYDROcodone-acet aminophen ([place]) 5-325 MG tablet TAKE 1 TABLET BY [...] Identification: Kenna Bergman 58 y.o. female CSN: [id number] Admission: 09/15/2024 11:52 PM Primary Problem: No [...] d/c transport via Lyft. Address verified as [address] [place] [address] [address] [place] [address]. Ride requested. Details relayed to RN/team. Pt picked-up and taken to address. No further needs identified. Teena Prasad PRINTING MECHANIST, PRACTICE SPECIALISTLoma Linda University Children's Hospital Emergency Department Skeins Yarn Examiner Senior Case Management ED Social Work Case [...] None - Reji Swan MD Resident 09/16/24 6772 [1] Past Medical History: Diagnosis Date ??? [...] states they do not know rxn details eRji Swan MD Resident 09/16/24 0349 Cosigned by [...] documented as of this encounter Care Teams Machine Castings Plasterer Relationship Specialty Start Date End Date Gita Muhammad APRN [address] [place] [address] PCP - General 06/25/22 documented as of this encounter
--- OUTSIDE RECORDS SUMMARY | 2024-09-17 13:44 | XMS_ITS | Patient Health Record ---
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
--- OUTSIDE RECORDS SUMMARY | 2024-09-17 13:45 | XMS_ITS | Clinical Summary ---
Author Organization [facility] Address [address] [place] [address] Care Team Providers Care Goodwill Representative Name Role Phone Provider, No Known Primary [...] - season) 2023 INFLUENZA VACCINE 11/14/2024 Insurance [facility] [employer] Care Teams Goodwill Representative Relationship Specialty Start Date End Date Provider, No Known [facility] [place] [address] PCP - General 12/02/16
--- OUTSIDE RECORDS SUMMARY | 2024-09-17 13:45 | XMS_ITS | Clinical Summary ---
Author Organization [facility] Address [address] [place] [address] Care Team Providers Care Integration Lead Name Role Phone Jb Gitazechariah Elmore APRN Primary Care Provider +1- [phone] Allergies Active Allergy Reactions Criticality Noted Date [...] times a day. 7 Active HYDROcodone-angie taminophen ([place]) 5-325 MG tablet TAKE 1 TABLET BY [...] Active Active Problems No known active problems Encounters Date Type Department Care Team Description 09/15/2024 11:52 PM EDT - 09/16/2024 3:48 AM EDT Emergency PAV A Emergency Department [address] [place] [id number] Philip King MD Right-sided low back pain without sciatica, unspecified chronicity (Primary Dx) Discharge Disposition: Home or Self Care 09/15/2024 Travel from Last 3 Months Immunizations Immunization Administration Dates Next Due Influenza, [...] oz) 09/15/2024 11:57 P M EDT Height 180.3 cm (5' 11 ) 08/18/2022 12:18 PM EDT Body Mass Index 46.34 08/18/2022 12:18 PM EDT Plan of Treatment [...] - Risk 60-74 years 1-dose series) 2023 [id number] Vaccine ( - 2023- season) 2023 03/03/2021, [...] Reactive Non Reactive 08/18/2022 4:22 PM EDT [facility] Comment:Screening for HIV 1 & 2 antibodies, and P24 antigen is NONREACTIVE. No confirmatory testing is required. Blood Venous blood specimen / Unknown Venipuncture / Unknown 08/18/2022 2:34 PM EDT 08/18/2022 2:34 PM EDT february R Palmira ARCHITECTURAL DRAFTING INSTRUCTOR LAB BLOOD ORDERABLES Final Result [facility] [address] [place] [address] * Acute Hepatitis Panel (08/18/2022 2:34 PM EDT) Hepatitis B Surf Antigen Negative Negative 08/18/2022 5:18 PM EDT [facility] Hepatitis C Antibody Negative Negative 08/18/2022 5:18 PM EDT [facility] Hepatitis A Antibody IgM Negative Negative 08/18/2022 5:18 PM EDT [facility] Hepatitis B Core Antibody IgM Negative Negative 08/18/2022 5:18 PM EDT [facility] Blood Venous blood specimen / Unknown Venipuncture / Unknown 08/18/2022 2:34 PM EDT 08/18/2022 2:34 PM EDT february Palmira ARCHITECTURAL DRAFTING INSTRUCTOR LAB BLOOD ORDERABLES Final Result [facility] [address] [place] [address] from Last 3 Months or Most Recently Relevant to Health Maintenance Insurance [facility] MEDICARE Care Teams Integration Lead Relationship Specialty Start Date End Date Gita Muhammad APRN [address] [place] [address] PCP - General 06/25/22
--- OUTSIDE RECORDS SUMMARY | 2024-09-17 13:45 | XMS_ITS | Encounter Summary ---
Author Organization [facility] Address [address] [id number] Care Team Providers Care Learning And Development Officer Name Role Phone Gita Muhammad APRN Primary Care Provider +1- [phone] Encounter Details Date Type Department Care Team (Latest Contact Info) Description 09/15/2024 Travel Social History Tobacco Use Types Packs/Day Years [...] on file documented as of this encounter Plan of Treatment Not on file documented as of this encounter Visit Diagnoses Not on filedocumented in this encounter Additional Health Concerns Assessment Noted Time A fall risk assessment has been complete d for the patient 08/18/2022 12:30 PM EDT A Body Mass Index follow-up plan has been documented for the patient 09/08/2022 3:23 PM EDT documented as of this encounter Care Teams Learning And Development Officer Relationship Specialty Start Date End Date Gita Muhammad APRN [address] [place] [address] PCP - General 06/25/22 documented as of this encounter
--- NOTE | 2024-09-17 14:11 | EXP.PAIN.SOA ---
[facility] Disclaimer: The information contained in this section may have been updated after the patient was seen, as this information can be updated by other users. Medical History Encounter for pre-operative cardiovascular clearance Obstructive sleep apnea syndrome, severe Nasal septal spur GERD (gastroesophageal reflux disease) Deviated nasal septum Edema of both lower extremities History of 2019 novel coronavirus disease (COVID-19) Family history of lung cancer Stopped smoking with greater than 30 pack year history Lung nodule Asthma Migraine History of back pain History of gastroesophageal reflux (GERD) Congestive heart failure IBS (irritable bowel syndrome) Hyperlipidemia CAD (coronary artery disease) BRAULIO (obstructive sleep apnea) HTN (hypertension) Ex-smoker Morbid obesity Surgical History S/P insertion of intrathecal pump H/O bilateral salpingo-oophorectomy H/O: hysterectomy History of colonoscopy History of cholecystectomy Family History Other Breast cancer Colon cancer Family history of Alzheimer's disease Family history of COPD (chronic obstructive pulmonary disease) Family history of GERD Family history of TIAs Family history of acute congestive heart failure Family history of asthma Family history of diabetes mellitus type II Family history of hyperlipidemia Family history of hypertension Family history of hypothyroidism Family history of irritable bowel syndrome Family history of kidney stone Family history of migraine headaches Family history of myocardial infarction Heart disease Lung cancer Stroke Social History Smoking Status: Unknown if ever smoked years smoked: 20 smoking status stop date: 18 years ago alcohol intake: never substance use type: denies use current occupational status: other Travel in the last 8 weeks?: None household members: spouse and children housing: house lives independently: No marital status: current occupational exposures/hazards: No caffeine: Yes PM Subjective & Objective Subjective Subjective:: Patient is a pleasant 58-year-old female who presents today for drainage around her lateral pump incision. She rates her pain today a 9 out of 10. She denies any new trauma or injury. Patient does state just over the last couple of days she started having fluid draining from her incision again. Patient does state that she initially noticed this when she woke up in the morning and had a little bit of a bloody drainage and then still continued to have leaking of fluid at this site. Patient does state that she ended up going to the ER for evaluation and that they did do an ultrasound and found some fluid around the pump. She does state that the provider there did not want to take any chances and sent her to to rule out meningitis. Patient does state that when she got there that they did discuss the possibility of doing an exploratory surgery and also removing her pump. Patient states that she was not in agreement with this and came on home. Patient does state that the drainage is worse with certain positions such as when she is laying down. Patient is currently managed with Dilaudid 10 mg/mL with a daily dose of 4.554 mg/day. She denies any side effects or need for additional adjustment. Review of Systems: General: No recent weight changes, no fever, no sleep disturbances Respiratory: No cough, no shortness of air, no recurring pulmonary infections Cardiovascular/peripheral vascular: No chest pain, no palpitations, no edema, no shortness of breath Gastrointestinal: No new onset incontinence, normal bowel movements reported Genitourinary: No new onset incontinence Musculoskeletal: Low back pain, drainage around her lateral incision Psychiatric: [Normal mood/affect] Neurological: [Denies weakness in extremities], [denies balance issues] Pain at rest (0-10 scale): 9 Objective Objective:: Physical Exam: General: Alert and oriented x3, no acute distress, pleasant and cooperative Lungs: Respirations even and unlabored, symmetrical chest expansion Eyes: PERRL Musculoskeletal: Flexion and extension of lumbar [spine] somewhat guarded secondary to pain, [antalgic gait noted] Neurological: Speech clear, no gross sensory deficit Skin: Her lateral incision does have 1 area of irritation and abrasion approximately 1.5 mm in size. There are no signs of infection with heat, or erythema Has patient had previous pain injection?: No Conservative treatment options previously tried: Home exercise plan Length of treatment: Longer than 12 weeks Meds Home Medications and Allergies Home Medications ?Medication ?Instructions ?Recorded ?Confirmed ?Type latanoprost 0.005 % eye drops 1 drp Eye-Both HS 06/28/23 09/15/24 History brimonidine 0.2 % eye drops 1 drp Eye-Both DAILY 04/04/24 09/15/24 History cetirizine 10 mg tablet 10 mg PO DAILY 04/04/24 09/15/24 History dorzolamide 2 % eye drops 1 drp Eye-Both DAILY 04/04/24 09/15/24 History multivitamin 1 tab PO DAILY 04/20/24 09/15/24 History omeprazole 20 mg capsule,delayed 20 mg PO BID 07/22/24 09/15/24 History release ropinirole 0.5 mg tablet 0.5 mg PO PM 07/22/24 09/15/24 History levothyroxine 125 mcg tablet See Rx Instructions .Route 08/10/24 09/15/24 Rx .COMPLEX #30 tabs New Prescriptions to Start Prescriptions: Allergies Allergy/AdvReac Type Severity Reaction Status Date / Time Penicillins Allergy Hives Verified 07/25/24 11:57 topiramate (From Topamax) Allergy Rash Verified 07/25/24 11:57 Assessment and Plan *Assessment and plan (1) Degenerative disc disease: Status: Acute Category: Medical Plan I did discuss with the patient that I do not have concerns currently of any infection. Patient does appear to have a small seroma around the pump however with palpation of the lateral incision I did not have any fluid leaking at the outer abrasion. We did discuss that it does appear to be more irritated as if rubbing up against his clothing however has no erythema around the small area/abrasion. We did cleanse the skin and apply Steri-Strips. Patient was counseled that we will see her back next week for additional evaluation. Patient agrees with this plan of care. She was counseled if she has any additional concerns to immediately call her office and we will make sure that she gets an appointment in the same day. Patient agrees with this plan of care. Patient denied any fever. Patient tolerated the procedure well with no complications and was discharged neurologically intact. Patient will return to clinic on or before their next intrathecal refill date. We will see the patient back in the clinic at the next intrathecal refill. Patient has been instructed to contact the clinic with any concerns before the next appointment. Dr. Canchola has reviewed this note and agrees with this plan of care. This note was dictated using voice recognition software and make contain errors or omissions. -- It Is medically necessary for this patient to continue to have their intrathecal pump refilled at regular intervals. This patient had an intrathecal pain pump implanted after meeting criteria of chronic intractable pain for greater than 3 months and failing conservative treatments. Patient has committed and been compliant to the treatment plan and all planned follow up care. Since implantation of the intrathecal pain pump, the patient has had decreased pain and been more functional. Oral medications have been reduced including intake of oral opioids. Patient continues to do well with intrathecal therapy with decrease in pain symptoms and increase in functional status. Stopping intrathecal medications can lead to life threatening withdrawal, seizures, cardiac arrest, severe pain, and possible . Pumps that are not refilled at regular intervals can be damages and cause and need for replacement. We continually titrate dose and concentration to optimize pain relief and function. We are limited in concentration for certain drugs to safely deliver medications through the pump and stay within the recommendations from the Polyanalgesic Consensus Committee Guidelines. Depending on dose and concentration these pumps may need to be refilled sooner than 3 months as we titrate. A UDS is needed to verify patient's compliance with our office pain contract. This is ordered based off specific treatments related to chronic pain with the potential to abuse certain medications.
[2024-09-17 14:19] VITALS: BP 116/62; PULSE 84; RESP 14; O2SAT 95; BMI 45.4
== END 2024-09-17 23:59 | disposition home or self-care (01) ==
LOC: SC.PAIN 13:43
PROVIDERS: PCP Nurse Practitioner Family; Visit Provider Nurse Practitioner Family
DX: M51.9 Unspecified thoracic, thoracolumbar and lumbosacral intervertebral disc disorder (principal); Z79.1 Long term (current) use of non-steroidal anti-inflammatories (NSAID)
CPT/HCPCS: 99212; G0463

== ENCOUNTER 2024-09-21 12:17 | Outpatient (CLI) | payer MEDICARE, SELFPAY ==
--- OUTSIDE RECORDS SUMMARY | 2024-09-15 23:52 | XMS_ITS | Encounter Summary ---
Author Organization [facility] Address [address] [place] [address] Care Team Providers Care Medical Transcription Supervisor Name Role Phone Gita Muhammad APRN Primary Care Provider +1- [phone] Reason for Visit * Reason Comments Back Pain Encounter Details Date Type Department Care Team ([facility] st Contact Info) Description 09/15/2024 11:52 PM EDT - 09/16/2024 3:48 AM EDT Emergency PAV A Emergency Department [address] [place] [address] Philip King MD [address] [place] [address] Right-sided low back pain without sciatica, unspecified [...] (three) times a day. 05/14/2016 HYDROcodone-acet aminophen ([place]) 5-325 MG tablet TAKE 1 TABLET BY [...] Identification: Kenna Bergman 58 y.o. female CSN: [id number] Admission: 09/15/2024 11:52 PM Primary Problem: No [...] d/c transport via Lyft. Address verified as [address] [place] [address] [address], [place] [address]. Ride requested. Details relayed to RN/team. Pt picked-up and taken to address. No further needs identified. Teena Prasad INFRASTRUCTURE ENGINEER, SENIOR BI ARCHITECTSt. Joseph Hospital Emergency Department Bleacher Pulp Senior Case Management ED Social Work Case [...] None - Reji Swan MD Resident 09/16/24 0878 [1] Past Medical History: Diagnosis Date ??? [...] documented as of this encounter Care Teams Medical Transcription Supervisor Relationship Specialty Start Date End Date Gita Muhammad APRN [address] [place] [address] PCP - General 06/25/22 documented as of this encounter
[2024-09-21 11:15] LABS: Hematocrit 37.7 % (37.0-47.0); Hemoglobin 11.3 g/dL (12.2-16.2); Immature Granulocytes % 0.1 %; Mean Corpuscular HGB Conc 30.0 g/dL (31.8-35.4); Mean Corpuscular Hemoglobin 26.5 pg (27.0-31.2); Mean Corpuscular Volume 88.3 fl (81-99); Nucleated Red Blood Cells % 0 %; Platelet Count 289 K/mm3 (142-424); Red Blood Count 4.27 M/mm3 (4.20-5.40); Red Cell Distribution Width-SD 53.8 fL; White Blood Count 6.8 K/mm3 (4.8-10.8)
--- OUTSIDE RECORDS SUMMARY | 2024-09-24 12:21 | XMS_ITS | Clinical Summary ---
Author Organization [facility] Address [address] [place] [address] Care Team Providers Care Second Shift Supervisor Name Role Phone Provider, No Known Primary [...] - season) 2023 INFLUENZA VACCINE 11/14/2024 Insurance [facility] [employer] Care Teams Second Shift Supervisor Relationship Specialty Start Date End Date Provider, No Known [facility] [address] PCP - General 12/02/16
--- OUTSIDE RECORDS SUMMARY | 2024-09-24 12:21 | XMS_ITS | Clinical Summary ---
Author Organization [facility] Address [address] [place] [address] Care Team Providers Care Precise Winder Name Role Phone Jb Gitazechariah Elmore APRN Primary Care Provider +1- [phone] Allergies Active Allergy Reactions Criticality Noted Date [...] times a day. 7 Active HYDROcodone-angie taminophen ([place]) 5-325 MG tablet TAKE 1 TABLET BY [...] AM EDT Emergency PAV A Emergency Department [address] [place] [id number] Philip King MD Right-sided low back pain [...] - Risk 60-74 years 1-dose series) 2023 [id number] Vaccine ( - 2023- season) 2023 03/03/2021, [...] Reactive Non Reactive 08/18/2022 4:22 PM EDT [facility] Comment:Screening for HIV 1 & 2 antibodies, and P24 antigen is NONREACTIVE. No confirmatory testing is required. Blood Venous blood specimen / Unknown Venipuncture / Unknown 08/18/2022 2:34 PM EDT 08/18/2022 2:34 PM EDT february R Palmira TECHNICAL PROGRAM MANAGER LAB BLOOD ORDERABLES Final Result [facility] [address] [place] [address] * Acute Hepatitis Panel (08/18/2022 2:34 PM EDT) Hepatitis B Surf Antigen Negative Negative 08/18/2022 5:18 PM EDT [facility] Hepatitis C Antibody Negative Negative 08/18/2022 5:18 PM EDT [facility] Hepatitis A Antibody IgM Negative Negative 08/18/2022 5:18 PM EDT [facility] Hepatitis B Core Antibody IgM Negative Negative 08/18/2022 5:18 PM EDT [facility] Blood Venous blood specimen / Unknown Venipuncture / Unknown 08/18/2022 2:34 PM EDT 08/18/2022 2:34 PM EDT february Palmira TECHNICAL PROGRAM MANAGER LAB BLOOD ORDERABLES Final Result [facility] [address] [place] [address] from Last 3 Months or Most Recently Relevant to Health Maintenance Insurance [facility] MEDICARE Care Teams Precise Winder Relationship Specialty Start Date End Date Gita Muhammad APRN [address] [place] [address] PCP - General 06/25/22
--- OUTSIDE RECORDS SUMMARY | 2024-09-24 12:21 | XMS_ITS | Encounter Summary ---
Author Organization [facility] Address [address] [id number] Care Team Providers Care Rn Correctional Name Role Phone Gita Muhammad APRN Primary Care Provider +1- [phone] Encounter Details Date Type Department Care Team [...] documented as of this encounter Care Teams Rn Correctional Relationship Specialty Start Date End Date Gita Muhammad APRN [address] [place] [address] PCP - General 06/25/22 documented as of this encounter
== END 2024-09-21 23:59 | disposition home or self-care (01) ==
LOC: LAB.DROPOF 09-24 12:18
PROVIDERS: PCP Nurse Practitioner Family; Visit Provider Nurse Practitioner Family
DX: L03.312 Cellulitis of back [any part except buttock and flank] (principal)
CPT/HCPCS: 85025; 87070; 87077; 87186; 87205

== ENCOUNTER 2024-09-28 09:20 | Day surgery (SDC) | payer MEDICARE, SELFPAY ==
--- OUTSIDE RECORDS SUMMARY | 2024-09-15 23:52 | XMS_ITS | Encounter Summary ---
Author Organization [facility] Address [address] [place] [address] Care Team Providers Care Server Developer Name Role Phone Gita Muhammad APRN Primary Care Provider +1- [phone] Reason for Visit * Reason Comments Back Pain Encounter Details Date Type Department Care Team ([facility] st Contact Info) Description 09/15/2024 11:52 PM EDT - 09/16/2024 3:48 AM EDT Emergency PAV A Emergency Department [address] [place] [address] Philip King MD [address] [place] [address] Right-sided low back pain without sciatica, unspecified [...] (three) times a day. 05/14/2016 HYDROcodone-acet aminophen ([place]) 5-325 MG tablet TAKE 1 TABLET BY [...] Identification: Kenna Bergman 58 y.o. female CSN: [id number] Admission: 09/15/2024 11:52 PM Primary Problem: No [...] d/c transport via Lyft. Address verified as [address] [place] [address] [address] [place] [address]. Ride requested. Details relayed to RN/team. Pt picked-up and taken to address. No further needs identified. Teena Prasad MAXILLOFACIAL PROSTHETICS DENTIST, CRIMINAL INVESTIGATORLucile Salter Packard [facility] Emergency Department Mirror Inspector Senior Case Management ED Social Work Case [...] None - Reji Swan MD Resident 09/16/24 1171 [1] Past Medical History: Diagnosis Date ??? [...] documented as of this encounter Care Teams Server Developer Relationship Specialty Start Date End Date Gita Muhammad APRN [address] [place] [address] PCP - General 06/25/22 documented as of this encounter
--- OUTSIDE RECORDS SUMMARY | 2024-09-28 09:23 | XMS_ITS | Encounter Summary ---
Author Organization [facility] Address [address] [id number] Care Team Providers Care Airplane Gas Tank Liner Assembler Name Role Phone Gita Muhammad APRN Primary Care Provider +1- [phone] Encounter Details Date Type Department Care Team [...] documented as of this encounter Care Teams Airplane Gas Tank Liner Assembler Relationship Specialty Start Date End Date Gita Muhammad APRN [address] [place] [address] PCP - General 06/25/22 documented as of this encounter
--- OUTSIDE RECORDS SUMMARY | 2024-09-28 09:23 | XMS_ITS | Clinical Summary ---
[facility] Address [address] [place] [address] Care Team Providers Care Bagger And Stock Handler Helper Name Role Phone Provider, No Known Primary [...] - season) 2023 INFLUENZA VACCINE 11/14/2024 [facility] [employer] Care Teams Bagger And Stock Handler Helper Relationship Specialty Start Date End Date Provider, No Known [facility] [place] [address] PCP - General 12/02/16
--- OUTSIDE RECORDS SUMMARY | 2024-09-28 09:23 | XMS_ITS | Clinical Summary ---
Author Organization [facility] Address [address] [place] [address] Care Team Providers Care Cnc Supervisor Name Role Phone Jb Gitazechariah Elmore APRN Primary Care Provider +1- [phone] Allergies Active Allergy Reactions Criticality Noted Date [...] times a day. 7 Active HYDROcodone-angie taminophen ([place]) 5-325 MG tablet TAKE 1 TABLET BY [...] AM EDT Emergency PAV A Emergency Department [address] [place] [phone] Philip King MD Right-sided low back pain [...] - Risk 60-74 years 1-dose series) 2023 [id number] Vaccine ( - 2023- season) 2023 03/03/2021, [...] Reactive Non Reactive 08/18/2022 4:22 PM EDT [facility] Comment:Screening for HIV 1 & 2 antibodies, and P24 antigen is NONREACTIVE. No confirmatory testing is required. Blood Venous blood specimen / Unknown Venipuncture / Unknown 08/18/2022 2:34 PM EDT 08/18/2022 2:34 PM EDT february R Palmira COMMERCIAL REAL ESTATE AGENT LAB BLOOD ORDERABLES Final Result [facility] [address] [place] [address] * Acute Hepatitis Panel (08/18/2022 2:34 PM EDT) Hepatitis B Surf Antigen Negative Negative 08/18/2022 5:18 PM EDT [facility] Hepatitis C Antibody Negative Negative 08/18/2022 5:18 PM EDT [facility] Hepatitis A Antibody IgM Negative Negative 08/18/2022 5:18 PM EDT [facility] Hepatitis B Core Antibody IgM Negative Negative 08/18/2022 5:18 PM EDT [facility] Blood Venous blood specimen / Unknown Venipuncture / Unknown 08/18/2022 2:34 PM EDT 08/18/2022 2:34 PM EDT february Palmira COMMERCIAL REAL ESTATE AGENT LAB BLOOD ORDERABLES Final Result [facility] [address] [place] [address] from Last 3 Months or Most Recently Relevant to Health Maintenance Insurance [facility] MEDICARE Care Teams Cnc Supervisor Relationship Specialty Start Date End Date Gita Muhammad APRN [address] [place] [address] PCP - General 06/25/22
--- OUTSIDE RECORDS SUMMARY | 2024-09-28 09:23 | XMS_ITS | Patient Health Record ---
Author Organization [facility] Address [address] [facility] [address] [place] [address] Care Team Providers Care Real Estate Account Executive Name Role Phone Teena Longo Unavailable [phone] Allergies Allergen (clinical drug ingredient) Drug/Non Drug [...] Status W/U Status Risk Notes Problem Epimenorrhea (28558139) Epimenorrhea (N92.0) 900 Active confirmed MENORRHAGIA Problem Dysmenorrhea (687216410) Adolescent dysmenorrhea (N94.6) 900 Active confirmed DYSMENORRHEA [...]
[2024-09-28 09:30] VITALS: BP 134/67; PULSE 74; RESP 16; O2SAT 96; BMI 45.3
--- NOTE | 2024-09-28 09:34 | EXP.PAIN.PRO ---
Procedure Date: 09/28/24 Time: 09:52 Anesthesiologist:: Merly Ruiz APRN Complications:: None Pre-procedure Diagnosis:: Degenerative disc disease of lumbar spine with lumbar radiculopathy symptoms, chronic pain syndrome Post-procedure Diagnosis:: Same Indications for Procedure:: Patient is a pleasant 58-year-old female who presents today for intrathecal refill and reprogram. She rates her pain today a 10 out of 10 however states it is not with her back but her knees bilaterally. Patient is seen [facility]'s orthopedic department for her knee pain and has been getting injections with the plan to have knee replacement in the future. Patient does state that she is still having a Significant amount of drainage from her pump site. Patient states they did end up doing a culture and it did show something was positive however is unsure exactly what. She has gotten a antibiotic with topical to apply. Patient does present today with a large amount of drainage on her clothing around the pump site. Patient is currently managed with Dilaudid 10 mg/mL with a daily dose of 4.554 mg/day. She denies any side effects. Her Andres has been reviewed and is appropriate. Physical Exam: General: Alert and oriented x3, no acute distress, pleasant and cooperative Lungs: Respirations even and unlabored, symmetrical chest expansion Eyes: PERRL Musculoskeletal: Flexion and extension of lumbar [spine] somewhat guarded secondary to pain, [antalgic gait noted] Neurological: Speech clear, no gross sensory deficit Procedure Details:: Informed consent was obtained and the risk and benefits of the procedure were explained to the patient. The patient had noninvasive monitoring placed including noninvasive blood pressure cuff and pulse oximeter. Patient's pump was interrogated. The area over the pump was cleansed with chlorhexidine as a cleansing solution. In sterile fashion the pump was accessed with a 22-gauge needle. Approximately 8.7 mls of the pump solution was removed and discarded appropriately. The pump was then refilled with 20 mL's of Dilaudid 10 mg/mL. The needle was withdrawn and a bandage was placed over the puncture site. The infusion rate was reprogrammed and continued at its current dosage. The patient tolerated well with no complication. Plan and Disposition:: Patient tolerated the procedure well with no complications and was discharged neurologically intact. I did apply skin glue to the area that he is still having drainage. There are no signs of infection in and around the pump sites however there is clear drainage noted with palpation however during today's visit it was not anything excessive. We will see the patient back in 2 weeks to reevaluate the site. Patient will also be given her date for her next pump refill. Patient will return to clinic on or before their next intrathecal refill date. We will see the patient back in the clinic at the next intrathecal refill. Patient has been instructed to contact the clinic with any concerns before the next appointment. Dr. Canchola has reviewed this note and agrees with this plan of care. This note was dictated using voice recognition software and make contain errors or omissions. -- It Is medically necessary for this patient to continue to have their intrathecal pump refilled at regular intervals. This patient had an intrathecal pain pump implanted after meeting criteria of chronic intractable pain for greater than 3 months and failing conservative treatments. Patient has committed and been compliant to the treatment plan and all planned follow up care. Since implantation of the intrathecal pain pump, the patient has had decreased pain and been more functional. Oral medications have been reduced including intake of oral opioids. Patient continues to do well with intrathecal therapy with decrease in pain symptoms and increase in functional status. Stopping intrathecal medications can lead to life threatening withdrawal, seizures, cardiac arrest, severe pain, and possible . Pumps that are not refilled at regular intervals can be damages and cause and need for replacement. We continually titrate dose and concentration to optimize pain relief and function. We are limited in concentration for certain drugs to safely deliver medications through the pump and stay within the recommendations from the Polyanalgesic Consensus Committee Guidelines. Depending on dose and concentration these pumps may need to be refilled sooner than 3 months as we titrate. A UDS is needed to verify patient's compliance with our office pain contract. This is ordered based off specific treatments related to chronic pain with the potential to abuse certain medications.
[2024-09-28 09:38] VITALS: BP 148/75; PULSE 73; RESP 18; O2SAT 99
[2024-09-28 09:43] VITALS: BP 157/78; PULSE 75; RESP 18; O2SAT 94
== END 2024-09-28 09:38 | disposition home or self-care (01) ==
PROVIDERS: PCP Nurse Practitioner Family; Visit Provider Nurse Practitioner Family
DX: Z45.1 Encounter for adjustment and management of infusion pump (principal); M51.16 Intervertebral disc disorders with radiculopathy, lumbar region; G89.4 Chronic pain syndrome; G47.33 Obstructive sleep apnea (adult) (pediatric); K21.9 Gastro-esophageal reflux disease without esophagitis; J45.909 Unspecified asthma, uncomplicated; I11.0 Hypertensive heart disease with heart failure; I50.9 Heart failure, unspecified; E78.5 Hyperlipidemia, unspecified; G43.909 Migraine, unspecified, not intractable, without status migrainosus; I25.10 Atherosclerotic heart disease of native coronary artery without angina pectoris; E66.01 Morbid (severe) obesity due to excess calories; Z68.41 Body mass index [BMI] 40.0-44.9, adult; Z88.0 Allergy status to penicillin; Z88.8 Allergy status to other drugs, medicaments and biological substances; Z79.899 Other long term (current) drug therapy; Z79.890 Hormone replacement therapy; Z87.891 Personal history of nicotine dependence
CPT/HCPCS: 62370

== ENCOUNTER 2024-10-08 14:51 | Outpatient (POV) | payer MEDICARE, SELFPAY ==
--- OUTSIDE RECORDS SUMMARY | 2024-09-15 23:52 | XMS_ITS | Encounter Summary ---
Author Organization [facility] Address [address] [place] [address] Care Team Providers Care Rehab Liaison Name Role Phone Gita Muhammad APRN Primary Care Provider +1- [phone] Reason for Visit * Reason Comments Back Pain Encounter Details Date Type Department Care Team ([facility] st Contact Info) Description 09/15/2024 11:52 PM EDT - 09/16/2024 3:48 AM EDT Emergency PAV A Emergency Department [address] [place] [address] Philip King MD [address] [place] [address] Right-sided low back pain without sciatica, unspecified [...] (three) times a day. 05/14/2016 HYDROcodone-acet aminophen ([place]) 5-325 MG tablet TAKE 1 TABLET BY [...] Identification: Kenna Bergman 58 y.o. female CSN: [id number] Admission: 09/15/2024 11:52 PM Primary Problem: No [...] d/c transport via Lyft. Address verified as [address] [place] [address] [address] [place] [address]. Ride requested. Details relayed to RN/team. Pt picked-up and taken to address. No further needs identified. Teena Prasad YOUTH DIRECTOR, AUXILIARY EQUIPMENT TENDERCasa [facility] Emergency Department Crew Car Driver Senior Case Management ED Social Work Case [...] None - Reji Swan MD Resident 09/16/24 9489 [1] Past Medical History: Diagnosis Date ??? [...] documented as of this encounter Care Teams Rehab Liaison Relationship Specialty Start Date End Date Gita Muhammad APRN [address] [place] [address] PCP - General 06/25/22 documented as of this encounter
--- OUTSIDE RECORDS SUMMARY | 2024-10-08 14:59 | XMS_ITS | Clinical Summary ---
[facility] Address [address] [place] [address] Care Team Providers Care Fiberglass Autobody Repairer Name Role Phone Provider, No Known Primary [...] - season) 2023 INFLUENZA VACCINE 11/14/2024 Insurance [facility] Care Teams Fiberglass Autobody Repairer Relationship Specialty Start Date End Date Provider, No Known [facility] [place] [address] PCP - General 12/02/16
--- OUTSIDE RECORDS SUMMARY | 2024-10-08 14:59 | XMS_ITS | Patient Health Record ---
Author Organization [facility] Address [address] [facility] [address] [place] [address] Care Team Providers Care Blocker Hand Name Role Phone Teena Longo Unavailable [phone] Allergies Allergen (clinical drug ingredient) Drug/Non Drug [...] Status W/U Status Risk Notes Problem Epimenorrhea (62374684) Epimenorrhea (N92.0) 900 Active confirmed MENORRHAGIA Problem Adolescent dysmenorrhea (N94.6) 900 Active confirmed DYSMENORRHEA [...]
--- OUTSIDE RECORDS SUMMARY | 2024-10-08 14:59 | XMS_ITS | Encounter Summary ---
Author Organization [facility] Address [address] [id number] Care Team Providers Care Test Specialist Name Role Phone Gita Muhammad APRN Primary Care Provider +1- [phone] Encounter Details Date Type Department Care Team [...] documented as of this encounter Care Teams Test Specialist Relationship Specialty Start Date End Date Gita Muhammad APRN [address] [place] [address] PCP - General 06/25/22 documented as of this encounter
--- OUTSIDE RECORDS SUMMARY | 2024-10-08 14:59 | XMS_ITS | Clinical Summary ---
Author Organization [facility] Address [address] [place] [address] Care Team Providers Care Burnt Lime Drawer Name Role Phone Jb Gitazechariah Elmore APRN Primary Care Provider +1- [phone] Allergies Active Allergy Reactions Criticality Noted Date [...] times a day. 7 Active HYDROcodone-angie taminophen ([place]) 5-325 MG tablet TAKE 1 TABLET BY [...] AM EDT Emergency PAV A Emergency Department [address] [place] [phone] Philip King MD Right-sided low back pain [...] - Risk 60-74 years 1-dose series) 2023 [id number] Vaccine ( - 2023- season) 2023 03/03/2021, [...] Reactive Non Reactive 08/18/2022 4:22 PM EDT [facility] Comment:Screening for HIV 1 & 2 antibodies, and P24 antigen is NONREACTIVE. No confirmatory testing is required. Blood Venous blood specimen / Unknown Venipuncture / Unknown 08/18/2022 2:34 PM EDT 08/18/2022 2:34 PM EDT february R Palmira FRATERNITY ADVISER LAB BLOOD ORDERABLES Final Result [facility] [address] [place] [address] * Acute Hepatitis Panel (08/18/2022 2:34 PM EDT) Hepatitis B Surf Antigen Negative Negative 08/18/2022 5:18 PM EDT [facility] Hepatitis C Antibody Negative Negative 08/18/2022 5:18 PM EDT [facility] Hepatitis A Antibody IgM Negative Negative 08/18/2022 5:18 PM EDT [facility] Hepatitis B Core Antibody IgM Negative Negative 08/18/2022 5:18 PM EDT [facility] Blood Venous blood specimen / Unknown Venipuncture / Unknown 08/18/2022 2:34 PM EDT 08/18/2022 2:34 PM EDT february Palmira FRATERNITY ADVISER LAB BLOOD ORDERABLES Final Result [facility] [address] [place] [address] from Last 3 Months or Most Recently Relevant to Health Maintenance Insurance [facility] MEDICARE Care Teams Burnt Lime Drawer Relationship Specialty Start Date End Date Gita Muhammad APRN [address] [place] [address] PCP - General 06/25/22
--- NOTE | 2024-10-08 15:12 | P.PCN_ITS ---
Procedure Date: 10/08/24 Time: 15:11 Anesthesiologist:: Merly Ruiz APRN Complications:: None Pre-procedure Diagnosis:: Degenerative disc disease of lumbar spine with lumbar radiculopathy symptoms Post-procedure Diagnosis:: Same Indications for Procedure:: Patient is a pleasant 59-year-old female who presents today for follow-up and pump adjustment. She is currently rating her pain an 8 out of 10. She does state that she has done remarkably well from her last visit and that she has not had any additional leaking around that lateral incision. Patient does feel like her pump still needs additional adjustment. Patient is currently managed with Dilaudid 10 mg/mL with a daily dose of 4.554 mg/day. She denies any side effects. Her Andres has been reviewed and is appropriate Physical Exam: General: Alert and oriented x3, no acute distress, pleasant and cooperative Lungs: Respirations even and unlabored, symmetrical chest expansion Eyes: PERRL Musculoskeletal: Flexion and extension of lumbar [spine] somewhat guarded secondary to pain, [antalgic gait noted] Neurological: Speech clear, no gross sensory deficit Procedure Details:: Informed consent was obtained and the risk and benefits of the procedure were explained to the patient. Patient did have noninvasive monitoring was placed including noninvasive blood pressure cuff and pulse oximeter. Patient's pump was interrogated and was reprogrammed to Dilaudid 5.004 mg/day. The patient tolerated the procedure well with no complications. Plan and Disposition:: Patient tolerated the procedure well with no complications and was discharged neurologically intact. Patient's incision along the lateral side is doing remarkably well. Patient does have a small scab on the 1 area that had remained unhealed. Patient has no redness or swelling noted. I did automobile club travel counselor her to still keep us posted if anything changes or the scab comes off and she has additional leakage. Patient is being changed to her concentration of 15 mg/mL at her next pump refill date. Patient will return to clinic on or before their next intrathecal refill date. We will see the patient back in the clinic at the next intrathecal refill. Patient has been instructed to contact the clinic with any concerns before the next appointment. Dr. Canchola has reviewed this note and agrees with this plan of care. This note was dictated using voice recognition software and make contain errors or omissions. -- It Is medically necessary for this patient to continue to have their intrathecal pump refilled at regular intervals. This patient had an intrathecal pain pump implanted after meeting criteria of chronic intractable pain for greater than 3 months and failing conservative treatments. Patient has committed and been compliant to the treatment plan and all planned follow up care. Since implantation of the intrathecal pain pump, the patient has had decreased pain and been more functional. Oral medications have been reduced including intake of oral opioids. Patient continues to do well with intrathecal therapy with decrease in pain symptoms and increase in functional status. Stopping intrathecal medications can lead to life threatening withdrawal, seizures, cardiac arrest, severe pain, and possible . Pumps that are not refilled at regular intervals can be damages and cause and need for replacement. We continually titrate dose and concentration to optimize pain relief and function. We are limited in concentration for certain drugs to safely deliver medications through the pump and stay within the recommendations from the Polyanalgesic Consensus Committee Guidelines. Depending on dose and concentration these pumps may need to be refilled sooner than 3 months as we titrate. A UDS is needed to verify patient's compliance with our office pain contract. This is ordered based off specific treatments related to chronic pain with the potential to abuse certain medications.
[2024-10-08 16:06] VITALS: BP 123/62; PULSE 78; RESP 18; O2SAT 98; BMI 45.3
[2024-10-08 20:11] LABS: Uric Acid 3.5 mg/dl (2.5-6.2)
[2024-10-08 20:26] LABS: 25-OH Vitamin D, Total 28.6 ng/mL (30-100)
[2024-10-10 13:41] LABS: RA Latex Turbid. <10.0 IU/mL (<14.0)
[2024-10-10 19:18] LABS: Antinuclear Antibodies, IFA Positive (.)
== END 2024-10-08 23:59 | disposition home or self-care (01) ==
PROVIDERS: PCP Nurse Practitioner Family; Visit Provider Nurse Practitioner Family
DX: M51.16 Intervertebral disc disorders with radiculopathy, lumbar region (principal)
CPT/HCPCS: 62368; 82306; 84550; 85651; 86038; 86431; 99213; G0463

== ENCOUNTER 2024-10-31 09:45 | Outpatient (CLI) | payer MEDICARE, SELFPAY ==
--- OUTSIDE RECORDS SUMMARY | 2024-09-15 23:52 | XMS_ITS | Encounter Summary ---
Author Organization [facility] Address [address] [place] [address] Care Team Providers Care Aerial Hurricane Hunter Name Role Phone Gita Muhammad APRN Primary Care Provider +1- [phone] Reason for Visit * Reason Comments Back Pain Encounter Details Date Type Department Care Team ([facility] st Contact Info) Description 09/15/2024 11:52 PM EDT - 09/16/2024 3:48 AM EDT Emergency PAV A Emergency Department [address] [place] [address] Philip King MD [address] [place] [address] Right-sided low back pain without sciatica, unspecified chronicity (Primary Dx) Discharge Disposition: Home or Self Care Social History Tobacco Use Types Packs/Day Years Used Date Smoking Tobacco: Never Smokeless Tobacco: Never Alcohol Use Standard Drinks/Week Comments No 0 (1 standard drink = 0.6 oz pur e alcohol) Comments Unknown Sex and Gender Information Value Date Recorded Sex Assigned at Not on file Legal Sex Female 8:27 PM EDT Gender Identity Not on file Sexual Orientation Not on file documented as of this encounter Last Filed Vital Signs Vital Sign Reading Time Taken Comments Blood Pressure 137/77 09/16/2024 3:20 AM EDT Pulse 85 09/16/2024 3:20 AM EDT Temperature 36.7 C (98.1 F) 09/16/2024 3:20 AM EDT Respiratory Rate 12 09/16/2024 3:20 AM EDT Oxygen Saturation 100% 09/16/2024 3:20 AM EDT Inhaled Oxygen Concentration - - Weight 151 kg (332 lb 3.7 oz) 09/15/2024 11:57 P M EDT Height - - Body Mass Index 46.34 08/18/2022 12:18 PM EDT documented in this encounter Functional Status * Calculated C-SSRS Risk Score (Lifetime/Recent) Answer Date of Assessment Author No Risk Indicated 09/16/2024 12:15 AM EDT Lidya Good RN * Question Answer Date of Assessment Author 1. Wish to be (Past 1 Month) No 025 12:15 AM EDT Lidya Good RN 2. Non-Specific Active Suici maris Thoughts (Past 1 Month) No 09/16/2024 12:15 AM EDT Lidya Good RN 6. Suicidal Behavior (Lifetime) No 12:15 AM EDT Lidya Good RN documented as of this encounter Discharge Instructions * Discharge Instructions* Reji Swan MD - 09/16/2024 3:21 AM EDT You were evaluated in the emergency department today for symptoms of back pain and fluid leakage around your pump site. At this time we have deemed are no emergent interventions necessary and you arebeing discharged home. Please follow-up with your anesthesiologist who manages your pain pump. Please return if you notice infectious symptoms including fever or chills redness swelling or hardening of skin around your pump site or blood discharge from the pump site. documented in this encounter Medications at Time of Discharge albuterol 108 (90 Base) MCG/ACT inhaler INHALE 2 PUFFS BY MOUTH EVERY 4 TO 6 HOURS NEEDED FOR PERSISTENT COUGH WHEEZE CHEST TIGHTNESS OR SHORTNESS OF BREATH brimonidine (AlphaGAN P) 0.2 % ophthalmic solution INSTILL 1 DROP INTO EACH EYE TWICE DAILY DIRECTED 04/04/2022 buPROPion XL (Wellbutrin XL) 300 MG 24 hr tablet TAKE 1 TABLET BY MOUTH ONCE DAILY IN THE MORNING 02/23/2022 cetirizine (ZyrTEC) 10 MG tablet Take 1 tablet (10 mg) by mouth 1 (one) time each day. dorzolamide (Trusopt) 2 % ophthalmic solution 07/12/2022 Flovent HFA 110 MCG/ACT inhaler 07/05/2022 furosemide (Lasix) 80 MG tablet 07/12/2022 gabapentin (Neurontin) 600 MG tablet Take 1 tablet (600 mg) by mouth 3 (three) times a day. 05/14/2016 HYDROcodone-acet aminophen ([place]) 5-325 MG tablet TAKE 1 TABLET BY MOUTH EVERY 6 HOURS NEEDED FOR MODERATE TO SEVERE PAIN hydroxychloroqui ne (Plaquenil) 200 MG tabletIndication s:Polyarthralgia Take 1 tablet (200 mg) by mouth 2 (two) times a day. 60 tablet 5 09/08/2022 latanoprost (Xalatan) 0.005 % ophthalmic solution 05/05/2022 levothyroxine (Synthroid, Levoxyl) 137 MCG tablet 08/02/2022 montelukast (Singulair) 10 MG tablet 04/08/2022 predniSONE (Deltasone) 5 MG tabletIndication s:Positive JOSE (antinuclear antibody),Polyar thralgia 3 tablets daily x 1 week, 2 tablets daily x1 week then one tablet daily 49 tablet 08/18/2022 documented as of this encounter Miscellaneous Notes * Progress Notes - Teena Prasad - 09/16/2024 3:46 AM EDT Case Management Note Patient Identification: Kenna Bergman 58 y.o. female CSN: [id number] Admission: 09/15/2024 11:52 PM Primary Problem: No Principal Problem: There is no principal problem currently on the Problem List.Please update the Problem List and refresh. ED SW responded to a request to assist pt with discharge transportation. It was determined pt met 300% Federal Poverty Guidelines. FPG form completed and faxed to medical records. ED SW arranged d/c transport via Lyft. Address verified as [address] [place] [address] [address], [place] [address]. Ride requested. Details relayed to RN/team. Pt picked-up and taken to address. No further needs identified. Teena Prasad DRONE PILOT, HARD ROCK MINERDesert [facility] Hospital Emergency Department Prison Guard Senior Case Management ED Social Work Case Management Pager evenings/weekends Case Management Main Office Mon-Fri * ED Provider Notes - Reji Swan MD - 09/15/2024 11:52 PM EDT HPI Chief Complaint Patient presents with ??? Back Pain HPI Patient is a 58-year-old female transferred from outside hospital today for back pain. The patient has a history of degenerative joint disease managed with a pain pump. Per the patient the pump was placed in her back in March of this year and has had clear drainage since insertion. On August 03 of this year the pump was refilled and the patient noticed a worsening of drainage from the pump site. She states it has continued to leak since this refilling and every subsequent refills since then.Patient states that she noticed a small amount of blood drain yesterday, but has not seen any sincethen. Patient was out with friends today and noticed that the polyp had leaked through her clothes,said that it was abnormal, her stated that he thought it was infected, patient decided to go to outside hospital where she was worked up for infection. Initial infection labs at the outside hospital were benign usually with no elevation in her white count or CRP. CT done at the outside hospital showed small pocket of fluid around pump. Patient History Past Medical History[1] Surgical History[2] Family History[3] Social History[4] Allergies: Allergies[5] Physical Exam ED Triage Vitals [09/15/24 2357] Temp Heart Rate Resp BP 36.9 ??C (98.4 ??F) 88 16 134/69 SpO2 Temp src Heart Rate Source Patient Position 95 % -- Monitor -- BP Location FiO2 (%) -- -- Physical Exam Tara Coma Scale Score: 15 ED Course & MDM Assessment: 58 y.o. female presents to ED with complaint of back pain/pump leak. It should be noted that the chronic conditions includes degenerative joint disease, which currently is at goal therapy. This complicates the clinical picture because it Comorbidities: may be exacerbating symptoms Differential Diagnosis: pump dysfunction, csf leak, cellulitis, In order to fully explore the differential diagnosis the following treatments and tests were ordered: -prior infectious workup negative at OSH, no skin induration or erythema at site of pomp making infectious etiologies less likely. Spoke with neurosurgery and they evaluated patient at bedside discussed options with patient patient opted to go home with close follow-up with her anesthesiologist whomanages her pump. At this time there no emergent interventions were deemed necessary the patient isstable and able to go home. Clinical Impressions as of 09/16/24 0348 Right-sided low back pain without sciatica, unspecified chronicity Social Determinates of Health Risks (including Economic Stability, Education and level of understanding, Healthcare access and quality and concerning social factors): Poor health literacy Ultimately, this patient was Was discharged Home (Discharge) There were no encounter diagnoses. . Patient was counseled on the diagnoses. Discharge medications if any are listed below. Listed medications are thought be either curative for listed diagnoses or will help control ongoing symptoms. Patient is requested to follow up with Patient's Primary Care Provider in order to obtain specialty care. Instructions on follow up as well as precautions to return to the ER provided verbally by the EM provider, as well as written in patients dischargeeducation packet. ED Prescriptions None - Reji Swan MD Resident 09/16/24 0198 [1] Past Medical History: Diagnosis Date ??? Personal history of infections of the central nervous system History of meningitis ??? Personal history of other diseases of the nervous system and sense organs History of glaucoma ??? Personal history of other diseases of the nervous system and sense organs History of migraine ??? Personal history of other endocrine, nutritional and metabolic disease History of hypothyroidism ??? Plantar fascial fibromatosis Plantar fasciitis [2] Past Surgical History: Procedure Laterality Date ??? CHOLECYSTECTOMY N/A Cholecystectomy from [facility] ??? HYSTERECTOMY N/A Hysterectomy from [facility] ??? KNEE SURGERY Right Knee Surgery Right from [facility] ??? OVARIAN CYST REMOVAL Right Ovarian Cystectomy Right from [facility] ??? TUBAL LIGATION N/A Tubal Ligation from [facility] [3] Family History Problem Relation Name Age of Onset ??? Conversions - Other Other Back problem ??? Hypertension Other ??? Other cancer Other ??? Heart attack Other [4] Tobacco Use ??? Smoking status: Never ??? Smokeless tobacco: Never Substance Use Topics ??? Alcohol use: No [5] Allergies Allergen Reactions ??? Metoprolol Unknown - Patient states they do not know rxn details ??? Penicillins Unknown - Patient states they do not know rxn details Reji Swan MD Resident 09/16/24 0349 Cosigned by Philip King MD at 09/16/2024 6:11 AM EDT Associated attestation - Philip King MD - 09/16/2024 6:11 AM EDT I saw and evaluated the patient with the resident/fellow. I discussed the case with the resident/fellow and agree with the findings and plan as documented. * ED Triage Notes - Lidya Good, RN - 09/15/2024 11:52 PM EDT Pt arrives via EMS due to pain pump malfunctioning. Drainage noted outside pain pump and CT scan from OSH showed pocket of fluid. Pain pump implanted for DDD. VSS GCS 15 documented in this encounter Plan of Treatment Not on file documented as of this encounter Visit Diagnoses Diagnosis Right-sided low back pain without sciatica, unspecified chronicity- Primary documented in this encounter Administered Medications Inactive Administered Medications - up to 3 most recent administrations Medication Order MAR Action Action Date Dose Rate Site acetaminophen (Tylenol) tablet 1,000 mg 1,000 mg, Oral, Once, 1 dose, On 09/16/24 at 0245, STAT Given 09/16/2024 3:20 AM EDT 1,000 mg documented in this encounter Active and Recently Administered Medications Times are shown in EDT. Scheduled Medication Order 09/14/2024 09/15/2024 09/16/2024 acetaminophen (Tylenol) tablet 1,000 mg (COMPLETED) 1,000 mg, Oral, Once, 1 dose, On 09/16/24 at 0245, STAT 0320 (Given - Provid er: Lidya Good RN) documented in this encounter Additional Health Concerns Assessment Noted Time A fall risk assessment has been complete d for the patient 08/18/2022 12:30 PM EDT A Body Mass Index follow-up plan has been documented for the patient 09/08/2022 3:23 PM EDT documented as of this encounter Care Teams Aerial Hurricane Hunter Relationship Specialty Start Date End Date Gita Muhammad APRN [address] [place] [address] PCP - General 06/25/22 documented as of this encounter
[2024-10-31 14:51] LABS: Albumin Level 3.9 g/dl (3.5-5.0); Chloride 101 mmol/L (98-107); Sodium 139 mmol/L (136-145)
[2024-10-31 14:52] LABS: Potassium 4.6 mmoL/L (3.5-5.1)
[2024-10-31 14:54] LABS: Alanine Aminotransferase 21 U/L (12-78); Anion Gap 10.6 mEq/L (5-15); Aspartate Amino Transferase 31 U/L (14-36); Bilirubin,Total 0.6 mg/dl (0.2-1.3); Blood Urea Nitrogen 11 mg/dl (7-17); Carbon Dioxide 32 mmol/L (22.0-30.0); Creatinine,Serum 0.80 mg/dl (0.52-1.04); Estimated Glomerular Filt Rate 73 ml/min (>60); GFR (African American) 88 ML/MIN (>60)
[2024-10-31 14:55] LABS: Albumin/Globulin Ratio 1.0 (1.1-1.8); Alkaline Phosphatase 97 U/L (38-126); Calcium 9.4 mg/dl (8.4-10.2); Globulin 3.8 g/dL (1.3-3.2); Glucose 84 mg/dl (74-100); Total Protein,Serum 7.7 g/dl (6.3-8.2)
[2024-10-31 15:22] LABS: Thyroid Stimulating Hormone 1.42 uIU/mL (0.465-4.68)
--- OUTSIDE RECORDS SUMMARY | 2024-11-01 10:15 | XMS_ITS | Patient Health Record ---
Author Organization [facility] Address [address] [facility] [address] [place] [address] Care Team Providers Care Crossbar Frame Wirer Name Role Phone Teena Longo Unavailable [phone] Allergies Allergen (clinical drug ingredient) Drug/Non Drug [...] Status W/U Status Risk Notes Problem Epimenorrhea (36341415) Epimenorrhea (N92.0) 900 Active confirmed MENORRHAGIA Problem Dysmenorrhea (462579175) Adolescent dysmenorrhea (N94.6) 900 Active confirmed DYSMENORRHEA [...]
--- OUTSIDE RECORDS SUMMARY | 2024-11-01 10:15 | XMS_ITS | Encounter Summary ---
Author Organization [facility] Address [address] [id number] Care Team Providers Care Sample Grinder Name Role Phone Gita Muhammad APRN Primary Care Provider +1- [phone] Encounter Details Date Type Department Care Team [...] documented as of this encounter Care Teams Sample Grinder Relationship Specialty Start Date End Date Gita Muhammad APRN [address] [place] [address] PCP - General 06/25/22 documented as of this encounter
--- OUTSIDE RECORDS SUMMARY | 2024-11-01 10:15 | XMS_ITS | Clinical Summary ---
[facility] Address [address] [place] [address] Care Team Providers Care Cop Breaker Name Role Phone Provider, No Known Primary [...] ANNUAL PHYSICAL 12/03/2016 HEPATITIS C SCREENING 12/03/2016 INFLUENZA VACCINE 09/14/2024 Insurance [employer] [place] [facility] [employer] Care Teams Cop Breaker Relationship Specialty Start Date End Date Provider, No Known [facility] [place] [address] PCP - General 12/02/16
--- OUTSIDE RECORDS SUMMARY | 2024-11-01 10:15 | XMS_ITS | Clinical Summary ---
Author Organization [facility] Address [address] [place] [address] Care Team Providers Care Student Loan Counselor Name Role Phone Jb Gitazechariah Elmore APRN Primary Care Provider +1- [phone] Allergies Active Allergy Reactions Criticality Noted Date [...] times a day. 7 Active HYDROcodone-angie taminophen ([place]) 5-325 MG tablet TAKE 1 TABLET BY [...] AM EDT Emergency PAV A Emergency Department [address] [place] [phone] Philip King MD Right-sided low back pain [...] - Risk 60-74 years 1-dose series) 2023 [id number]-10 Vaccine (4 - season) 2024 03/03/2021, 08/20/2020, 07/23/2020 UKY-Influenza Vaccine (#1) 10/15/202411/19, [...] Reactive Non Reactive 08/18/2022 4:22 PM EDT [facility] Comment:Screening for HIV 1 & 2 antibodies, and P24 antigen is NONREACTIVE. No confirmatory testing is required. Blood Venous blood specimen / Unknown Venipuncture / Unknown 08/18/2022 2:34 PM EDT 08/18/2022 2:34 PM EDT february R Palmira PROCESS PUMPER LAB BLOOD ORDERABLES Final Result [facility] [address] [place] [address] * Acute Hepatitis Panel (08/18/2022 2:34 PM EDT) Hepatitis B Surf Antigen Negative Negative 08/18/2022 5:18 PM EDT [facility] Hepatitis C Antibody Negative Negative 08/18/2022 5:18 PM EDT [facility] Hepatitis A Antibody IgM Negative Negative 08/18/2022 5:18 PM EDT [facility] Hepatitis B Core Antibody IgM Negative Negative 08/18/2022 5:18 PM EDT [facility] Blood Venous blood specimen / Unknown Venipuncture / Unknown 08/18/2022 2:34 PM EDT 08/18/2022 2:34 PM EDT february Palmira PROCESS PUMPER LAB BLOOD ORDERABLES Final Result [facility] [address] [place] [address] from Last 3 Months or Most Recently Relevant to Health Maintenance Insurance [facility] MEDICARE Care Teams Student Loan Counselor Relationship Specialty Start Date End Date Gita Muhammad APRN [address] [place] [address] PCP - General 06/25/22
== END 2024-10-31 23:59 ==
LOC: LAB.DROPOF 11-01 10:11
PROVIDERS: PCP Nurse Practitioner Family; Visit Provider Nurse Practitioner Family
DX: E03.9 Hypothyroidism, unspecified (principal); I10 Essential (primary) hypertension; E78.5 Hyperlipidemia, unspecified
CPT/HCPCS: 80053; 84443

== ENCOUNTER → 2024-11-06 19:39 | Outpatient (CLI) | payer MEDICARE, SELFPAY ==
--- OUTSIDE RECORDS SUMMARY | 2024-09-15 23:52 | XMS_ITS | Encounter Summary ---
Author Organization [facility] Address [address] [place] [address] Care Team Providers Care Broom Bundler Name Role Phone Gita Muhammad APRN Primary Care Provider +1- [phone] Reason for Visit * Reason Comments Back Pain Encounter Details Date Type Department Care Team ([facility] st Contact Info) Description 09/15/2024 11:52 PM EDT - 09/16/2024 3:48 AM EDT Emergency PAV A Emergency Department [address] [place] [address] Philip King MD [address] [place] [address] Right-sided low back pain without sciatica, unspecified [...] (three) times a day. 05/14/2016 HYDROcodone-acet aminophen ([place]) 5-325 MG tablet TAKE 1 TABLET BY [...] Identification: Kenna Bergman 58 y.o. female CSN: [id number] Admission: 09/15/2024 11:52 PM Primary Problem: No [...] d/c transport via Lyft. Address verified as [address] [place] [address] [address] [place] [address]. Ride requested. Details relayed to RN/team. Pt picked-up and taken to address. No further needs identified. Teena Prasad NON DESTRUCTIVE TESTING TECHNICIAN, AERONAUTICAL PRODUCTS SALES ENGINEERMercy General Hospital Emergency Department Hospital Wellness Coordinator Senior Case Management ED Social Work Case [...] None - Reji Swan MD Resident 09/16/24 2140 [1] Past Medical History: Diagnosis Date ??? [...] documented as of this encounter Care Teams Broom Bundler Relationship Specialty Start Date End Date Gita Muhammad APRN [address] [place] [address] PCP - General 06/25/22 documented as of this encounter
--- OUTSIDE RECORDS SUMMARY | 2024-11-06 19:43 | XMS_ITS | Encounter Summary ---
Author Organization [facility] Address [address] [id number] Care Team Providers Care Hydraulic Technician Name Role Phone Gita Muhammad APRN Primary Care Provider +1- [phone] Encounter Details Date Type Department Care Team [...] documented as of this encounter Care Teams Hydraulic Technician Relationship Specialty Start Date End Date Gita Muhammad APRN [address] [place] [address] PCP - General 06/25/22 documented as of this encounter
--- OUTSIDE RECORDS SUMMARY | 2024-11-06 19:43 | XMS_ITS | Clinical Summary ---
Author Organization [facility] Address [address] [place] [address] Care Team Providers Care Dairy Science Teacher Name Role Phone Jb Gitazechariah Elmore APRN Primary Care Provider +1- [phone] Allergies Active Allergy Reactions Criticality Noted Date [...] times a day. 7 Active HYDROcodone-angie taminophen ([place]) 5-325 MG tablet TAKE 1 TABLET BY [...] AM EDT Emergency PAV A Emergency Department [address] [place] [phone] Philip King MD Right-sided low back pain [...] - Risk 60-74 years 1-dose series) 2023 [id number] Vaccine (4 - season) 2024 03/03/2021, 08/20/2020, [...] Reactive Non Reactive 08/18/2022 4:22 PM EDT [facility] Comment:Screening for HIV 1 & 2 antibodies, and P24 antigen is NONREACTIVE. No confirmatory testing is required. Blood Venous blood specimen / Unknown Venipuncture / Unknown 08/18/2022 2:34 PM EDT 08/18/2022 2:34 PM EDT february R Palmira LEATHER PRODUCTION MACHINE OPERATOR LAB BLOOD ORDERABLES Final Result [facility] [address] [place] [address] * Acute Hepatitis Panel (08/18/2022 2:34 PM EDT) Hepatitis B Surf Antigen Negative Negative 08/18/2022 5:18 PM EDT [facility] Hepatitis C Antibody Negative Negative 08/18/2022 5:18 PM EDT [facility] Hepatitis A Antibody IgM Negative Negative 08/18/2022 5:18 PM EDT [facility] Hepatitis B Core Antibody IgM Negative Negative 08/18/2022 5:18 PM EDT [facility] Blood Venous blood specimen / Unknown Venipuncture / Unknown 08/18/2022 2:34 PM EDT 08/18/2022 2:34 PM EDT february Palmira LEATHER PRODUCTION MACHINE OPERATOR LAB BLOOD ORDERABLES Final Result [facility] [address] [place] [address] from Last 3 Months or Most Recently Relevant to Health Maintenance Insurance [facility] MEDICARE Care Teams Dairy Science Teacher Relationship Specialty Start Date End Date Gita Muhammad APRN [address] [place] [address] PCP - General 06/25/22
--- OUTSIDE RECORDS SUMMARY | 2024-11-06 19:43 | XMS_ITS | Clinical Summary ---
[facility] Address [address] [place] [address] Care Team Providers Care Senior Oracle Database Developer Name Role Phone Provider, No Known Primary [...] C SCREENING 12/03/2016 INFLUENZA VACCINE 09/14/2024 Insurance [employer] [facility] [employer] Care Teams Senior Oracle Database Developer Relationship Specialty Start Date End Date Provider, No Known [facility] [address] PCP - General 12/02/16
--- OUTSIDE RECORDS SUMMARY | 2024-11-06 19:43 | XMS_ITS | Patient Health Record ---
Author Organization [facility] Address [address] [facility] [address] [place] [address] Care Team Providers Care Manager Of International Name Role Phone Teena Longo Unavailable [phone] Allergies Allergen (clinical drug ingredient) Drug/Non Drug [...] Status W/U Status Risk Notes Problem Epimenorrhea (67176013) Epimenorrhea (N92.0) 900 Active confirmed MENORRHAGIA Problem Dysmenorrhea (497638783) Adolescent dysmenorrhea (N94.6) 900 Active confirmed DYSMENORRHEA [...]
== END ==
LOC: SL 19:41
PROVIDERS: PCP Nurse Practitioner Family; Visit Provider Nurse Practitioner Family
DX: G47.33 Obstructive sleep apnea (adult) (pediatric) (principal)
CPT/HCPCS: 95810

== ENCOUNTER 2024-11-12 09:31 | Outpatient (CLI) | payer MEDICARE, SELFPAY ==
--- OUTSIDE RECORDS SUMMARY | 2024-09-15 23:52 | XMS_ITS | Encounter Summary ---
Author Organization [facility] Address [address] [place] [address] Care Team Providers Care Wastewater Plant Civil Engineer Name Role Phone Gita Muhammad APRN Primary Care Provider +1- [phone] Reason for Visit * Reason Comments Back Pain Encounter Details Date Type Department Care Team ([facility] st Contact Info) Description 09/15/2024 11:52 PM EDT - 09/16/2024 3:48 AM EDT Emergency P[facility] A Emergency Department [address] [place] [address] Philip King MD [address] [place] [address] Right-sided low back pain without sciatica, unspecified [...] (three) times a day. 05/14/2016 HYDROcodone-acet aminophen ([place]) 5-325 MG tablet TAKE 1 TABLET BY [...] Identification: Kenna Bergman 58 y.o. female CSN: [id number] Admission: 09/15/2024 11:52 PM Primary Problem: No [...] d/c transport via Lyft. Address verified as [address] [place] [address] [address] [place] [address]. Ride requested. Details relayed to RN/team. Pt picked-up and taken to address. No further needs identified. Teena Prasad SUPERVISOR INSULATION, FIELD REIMBURSEMENT MANAGERMemorial Hospital Of Gardena Emergency Department Railway Engineer Senior Case Management ED Social Work Case [...] None - Reji Swan MD Resident 09/16/24 3365 [1] Past Medical History: Diagnosis Date ??? [...] documented as of this encounter Care Teams Wastewater Plant Civil Engineer Relationship Specialty Start Date End Date Gita Muhammad APRN [address] [place] [address] PCP - General 06/25/22 documented as of this encounter
--- OUTSIDE RECORDS SUMMARY | 2024-11-12 09:37 | XMS_ITS | Encounter Summary ---
Author Organization [facility] Address [address] [id number] Care Team Providers Care Operations Manager Assistant Name Role Phone Gita Muhammad APRN Primary Care Provider +1- [phone] Encounter Details Date Type Department Care Team [...] documented as of this encounter Care Teams Operations Manager Assistant Relationship Specialty Start Date End Date Gita Muhammad APRN [address] [place] [address] PCP - General 06/25/22 documented as of this encounter
--- OUTSIDE RECORDS SUMMARY | 2024-11-12 09:37 | XMS_ITS | Clinical Summary ---
Author Organization [facility] Address [address] [place] [address] Care Team Providers Care Falsework Builder Name Role Phone Jb Gitazechariah Elmore APRN Primary Care Provider +1- [phone] Allergies Active Allergy Reactions Criticality Noted Date [...] times a day. 7 Active HYDROcodone-angie taminophen ([place]) 5-325 MG tablet TAKE 1 TABLET BY [...] AM EDT Emergency PAV A Emergency Department [address] [place] [phone] Philip King MD Right-sided low back pain [...] - Risk 60-74 years 1-dose series) 2023 [id number] Vaccine (4 - season) 2024 03/03/2021, 08/20/2020, [...] Reactive Non Reactive 08/18/2022 4:22 PM EDT [facility] Comment:Screening for HIV 1 & 2 antibodies, and P24 antigen is NONREACTIVE. No confirmatory testing is required. Blood Venous blood specimen / Unknown Venipuncture / Unknown 08/18/2022 2:34 PM EDT 08/18/2022 2:34 PM EDT february R Palmira ELECTRICIAN CONTROL EQUIPMENT LAB BLOOD ORDERABLES Final Result [facility] [address] [place] [address] * Acute Hepatitis Panel (08/18/2022 2:34 PM EDT) Hepatitis B Surf Antigen Negative Negative 08/18/2022 5:18 PM EDT [facility] Hepatitis C Antibody Negative Negative 08/18/2022 5:18 PM EDT [facility] Hepatitis A Antibody IgM Negative Negative 08/18/2022 5:18 PM EDT [facility] Hepatitis B Core Antibody IgM Negative Negative 08/18/2022 5:18 PM EDT [facility] Blood Venous blood specimen / Unknown Venipuncture / Unknown 08/18/2022 2:34 PM EDT 08/18/2022 2:34 PM EDT february Palmira ELECTRICIAN CONTROL EQUIPMENT LAB BLOOD ORDERABLES Final Result [facility] [address] [place] [address] from Last 3 Months or Most Recently Relevant to Health Maintenance Insurance [facility] MEDICARE Care Teams Falsework Builder Relationship Specialty Start Date End Date Gita Muhammad APRN [address] [place] [address] PCP - General 06/25/22
--- OUTSIDE RECORDS SUMMARY | 2024-11-12 09:37 | XMS_ITS | Patient Health Record ---
Author Organization [facility] Address [address] [facility] [address] [place] [address] Care Team Providers Care Utility Worker Production Name Role Phone Teena Longo Unavailable [phone] Allergies Allergen (clinical drug ingredient) Drug/Non Drug [...] Status W/U Status Risk Notes Problem Epimenorrhea (35642008) Epimenorrhea (N92.0) 900 Active confirmed MENORRHAGIA Problem Dysmenorrhea (332375645) Adolescent dysmenorrhea (N94.6) 900 Active confirmed DYSMENORRHEA [...]
--- OUTSIDE RECORDS SUMMARY | 2024-11-12 09:37 | XMS_ITS | Clinical Summary ---
[facility] Address [address] [place] [address] Care Team Providers Care Manager Internet Retails Sales Name Role Phone Provider, No Known Primary [...] C SCREENING 12/03/2016 INFLUENZA VACCINE 09/14/2024 Insurance [facility] [employer] Care Teams Manager Internet Retails Sales Relationship Specialty Start Date End Date Provider, No Known [facility] [place] [address] PCP - General 12/02/16
--- NOTE | 2024-11-12 10:00 | CT_ITS ---
FINAL REPORT TECHNIQUE: CT examination of the abdomen and pelvis was performed from the lung bases through the symphysis pubis. Pre and postcontrast enhanced images were obtained. Multiplanar reconstructions were performed in the sagittal and coronal planes. This study was performed with techniques to keep radiation doses as low as reasonably achievable (ALARA). Individualized dose reduction techniques using automated exposure control or adjustment of mA and/or kV according to the patient's size were employed. CLINICAL HISTORY: left sided periumbilic/abd walll lump COMPARISON: 07/22/2024 FINDINGS: CT ABDOMEN PELVIS WITH AND WITHOUT CONTRAST: Precontrast enhanced images do not show any renal stones. There is streak artifact secondary to a spinal infusion pump. The lung bases are clear. There are benign-appearing cysts in both lobes of the liver, measuring up to 1.7 x 1.0 cm in size. The gallbladder is absent. There is a low-attenuation mass in the left adrenal gland measuring up to 2.4 cm in size. The maximum attenuation value precontrast is 15, is 17 on immediate images, and is 2 on delayed images. Favor that this represents an adenoma. Note is made of a fat-containing umbilical hernia, with a defect of 3.0 cm. This contains only fat. In the pelvis, the appendix is unremarkable in appearance. There is extensive sigmoid diverticulosis without evidence of acute inflammatory change. IMPRESSION: Low-attenuation mass in the left adrenal gland, favor that this represents an adenoma. Fat-containing umbilical hernia with a defect of 3 cm, not significantly changed. Reviewed, Interpreted and Dictated by Melvin Giles MD Transcribed by June Alarcon Authenticated and [facility]
[2024-11-12] MEDS: SODIUM CHLORIDE 0.9% 10ML SYR (RAD ONLY) 10 ML IV (10:13)
[2024-11-12] MEDS: IOPAMIDOL-370 (76%);100ML BOTTLE 75 ML IV (10:13)
== END 2024-11-12 23:59 | disposition home or self-care (01) ==
LOC: RAD 09:32
PROVIDERS: PCP Nurse Practitioner Family; Visit Provider Nurse Practitioner Family
DX: E27.8 Other specified disorders of adrenal gland (principal); K42.9 Umbilical hernia without obstruction or gangrene; R19.05 Periumbilic swelling, mass or lump
CPT/HCPCS: 74178; Q9967

== ENCOUNTER 2024-12-19 10:44 | Outpatient (CLI) | payer MEDICARE, SELFPAY ==
[2024-12-19 10:35] VITALS: BMI 44.1
--- OUTSIDE RECORDS SUMMARY | 2024-12-19 11:10 | XMS_ITS | Patient Health Record ---
Author Organization [facility] Address [address] [facility] [address] [place] [address] Care Team Providers Care Bus And Trolley Dispatcher Name Role Phone Teena Longo Unavailable [phone] Allergies Allergen (clinical drug ingredient) Drug/Non Drug [...] Status W/U Status Risk Notes Problem Epimenorrhea (72910864) Epimenorrhea (N92.0) 900 Active confirmed MENORRHAGIA Problem Dysmenorrhea (475004684) Adolescent dysmenorrhea (N94.6) 900 Active confirmed DYSMENORRHEA [...]
--- OUTSIDE RECORDS SUMMARY | 2024-12-19 11:10 | XMS_ITS | Clinical Summary ---
Author Organization [facility] Address [address] [place] [address] Care Team Providers Care Dance Hall Hostess Name Role Phone Jb Gitazechariah Elmore APRN Primary Care Provider +1- [phone] Allergies Active Allergy Reactions Criticality Noted Date [...] times a day. 7 Active HYDROcodone-angie taminophen ([place]) 5-325 MG tablet TAKE 1 TABLET BY [...] - Risk 60-74 years 1-dose series) 2023 [id number] Vaccine (4 - 2024- season) 2024 03/03/2021, 08/20/2020, 07/23/2020 UKY-Influenza Vaccine [...] Reactive Non Reactive 08/18/2022 4:22 PM EDT [facility] Comment:Screening for HIV 1 & 2 antibodies, and P24 antigen is NONREACTIVE. No confirmatory testing is required. Blood Venous blood specimen / Unknown Venipuncture / Unknown 08/18/2022 2:34 PM EDT 08/18/2022 2:34 PM EDT February R Palmira [facility]CK[facility]ZIE LAB BLOOD ORDERABLES Final Result Performing Organization Address City/State/[facility] Co de Phone Number [facility] [address] [place] [address] * Acute Hepatitis Panel (08/18/2022 2:34 PM EDT) Hepatitis B Surf Antigen Negative Negative 08/18/2022 5:18 PM EDT [facility] Hepatitis C Antibody Negative Negative 08/18/2022 5:18 PM EDT [facility] Hepatitis A Antibody IgM Negative Negative 08/18/2022 5:18 PM EDT [facility] Hepatitis B Core Antibody IgM Negative Negative 08/18/2022 5:18 PM EDT [facility] Blood Venous blood specimen / Unknown Venipuncture / Unknown 08/18/2022 2:34 PM EDT 08/18/2022 2:34 PM EDT February Palmira [place] [facility] BLOOD ORDERABLES Final Result [facility] [address] [place] [address] from Last 3 Months or Most Recently Relevant to Health Maintenance [place] [address] MEDICARE Care Teams Dance Hall Hostess Relationship Specialty Start Date End Date Gita Muhammad APRN [address] [place] [address] PCP - General 06/25/22
--- OUTSIDE RECORDS SUMMARY | 2024-12-19 11:10 | XMS_ITS | Clinical Summary ---
[facility] Address [address] [place] [address] Care Team Providers Care Senior Network Security Engineer Name Role Phone Provider, No Known Primary [...] C SCREENING 12/03/2016 INFLUENZA VACCINE 09/14/2024 [facility] [employer] Care Teams Senior Network Security Engineer Relationship Specialty Start Date End Date Provider, No Known [facility] [place] [address] PCP - General 12/02/16
--- NOTE | 2024-12-19 11:26 | ECG_ITS ---
APPROVED REPORT Exam: Resting ECG HR:63 bpm ECG Measurements Heart Rate 63 AXES MN 156 P 31 QRSd 136 QRS -38 QT 383 T 19 QTc 390 Conclusion SINUS RHYTHM LEFT AXIS DEVIATION [QRS AXIS < -30] Late R wave progression ABNORMAL ECG UNCONFIRMED REPORT Electronically signed by : Dandy Del Toro MD 12/20/2024 08:48:31
[2024-12-19 12:39] LABS: Hematocrit 36.6 % (37.0-47.0); Hemoglobin 11.4 g/dL (12.2-16.2); Immature Granulocytes % 0.2 %; Mean Corpuscular HGB Conc 31.1 g/dL (31.8-35.4); Mean Corpuscular Hemoglobin 27.1 pg (27.0-31.2); Mean Corpuscular Volume 87.1 fl (81-99); Nucleated Red Blood Cells % 0 %; Platelet Count 319 K/mm3 (142-424); Red Blood Count 4.20 M/mm3 (4.20-5.40); Red Cell Distribution Width-SD 52.2 fL; White Blood Count 9.5 K/mm3 (4.8-10.8)
[2024-12-19 12:52] LABS: Chloride 103 mmol/L (98-107); Potassium 4.2 mmoL/L (3.5-5.1); Sodium 138 mmol/L (136-145)
[2024-12-19 12:55] LABS: Anion Gap 10.2 mEq/L (5-15); Blood Urea Nitrogen 15 mg/dl (7-17); Calcium 8.4 mg/dl (8.4-10.2); Carbon Dioxide 29 mmol/L (22.0-30.0); Creatinine Clearance Estimated 66 mL/min (50-200); Creatinine,Serum 0.70 mg/dl (0.52-1.04); Estimated Glomerular Filt Rate 85 ml/min (>60); GFR (African American) 103 ML/MIN (>60); Glucose 115 mg/dl (74-100)
== END 2024-12-19 23:59 | disposition home or self-care (01) ==
LOC: PREOP 10:45
PROVIDERS: Nurse Anesthetist, Certified Registered; PCP Nurse Practitioner Family; Visit Provider Surgery
DX: Z01.810 Encounter for preprocedural cardiovascular examination (principal); Z01.812 Encounter for preprocedural laboratory examination; R94.31 Abnormal electrocardiogram [ECG] [EKG]
CPT/HCPCS: 80048; 85025; 93005

== ENCOUNTER 2024-12-31 06:03 | Day surgery (SDC) | payer MEDICARE, SELFPAY ==
[2024-12-19 09:09] VITALS: BMI 44.1
[2024-12-19 11:31] VITALS: BMI 44.1
[2024-12-31] VITALS (11 sets, daily range): BP systolic 134–152; BP diastolic 63–99; PULSE 61–67; RESP 12–18; TEMP 36.1–38; O2SAT 93–99; BMI 44.1
[2024-12-31] MEDS: LACTATED RINGERS 1000ML 1,000 ML 25 ML IV (06:40)
--- NOTE | 2024-12-31 06:56 | P.PNANES_ITS ---
[facility] Disclaimer: The information contained in this section may have been updated after the patient was seen, as this information can be updated by other users. Medical History Encounter for pre-operative cardiovascular clearance Obstructive sleep apnea syndrome, severe Nasal septal spur GERD (gastroesophageal reflux disease) Deviated nasal septum Edema of both lower extremities History of 2019 novel coronavirus disease (COVID-19) Family history of lung cancer Stopped smoking with greater than 30 pack year history Lung nodule Asthma Migraine History of back pain History of gastroesophageal reflux (GERD) Congestive heart failure IBS (irritable bowel syndrome) Hyperlipidemia CAD (coronary artery disease) BRAULIO (obstructive sleep apnea) HTN (hypertension) Ex-smoker Morbid obesity Surgical History S/P insertion of intrathecal pump H/O bilateral salpingo-oophorectomy H/O: hysterectomy History of colonoscopy History of cholecystectomy Family History Other Breast cancer Colon cancer Family history of Alzheimer's disease Family history of COPD (chronic obstructive pulmonary disease) Family history of GERD Family history of TIAs Family history of acute congestive heart failure Family history of asthma Family history of diabetes mellitus type II Family history of hyperlipidemia Family history of hypertension Family history of hypothyroidism Family history of irritable bowel syndrome Family history of kidney stone Family history of migraine headaches Family history of myocardial infarction Heart disease Lung cancer Stroke Social History (Updated 12/31/24 @ 06:36 by Janet Kimble RN) Smoking Status: Former smoker tobacco type: cigarettes packs per day: 1 smoking status start date: yo years smoked: 14 smoking status stop date: 05/21/2004 alcohol intake: never substance use type: denies use current occupational status: disabled Travel in the last 8 weeks?: None household members: spouse and children housing: house lives independently: No marital status: current occupational exposures/hazards: No caffeine: Yes Have you lived/traveled outside US in past 30 days?: No Contact w/someone who lives/traveled outside US past 30 days?: No Exposure to someone with infectious disease in past 14 days?: No Do you have a fever (greater than 100.4 F or 38 C)?: No Have you tested positive for COVID-19?: No Exposed to someone with COVID-19 in past 14 days?: No Do you have a sore throat?: No Do you have a cough?: No Do you have any weakness?: No Are you experiencing any nausea/vomitting?: No Do you have any diarrhea?: No Are you experiencing any unusual bleeding?: No Do you have any muscle aches/pain?: No Do you have any abdominal pain?: No Are you experiencing loss of taste or smell?: No [facility] Anesthesia Checklist Patient Identification Patient Identification: Arm Band and Family Structural Data Admitted From: Home Planned Operative Procedure/s: Unbilical hernia repair Consent for Planned Operative Procedure(s) Verified: Yes Verified Documents: Surgical Consent NPO Status Verified Time NPO: 00:00 Additional verifications Patient : No Anesthesia Reactions: No Hx Blood Transfusions: No Blood Transfusion Reaction: No Cephalosporin Allergy: Yes Previous Colonoscopy: Yes Airway Assessment Mallampati Score:: Class III C-Spine Mobility Assessed: Yes TMJ Mobility Assessed: Yes Dentition: Good Dentition Neurological Assessment Level of Consciousness: Awake, Alert, Appropriate and Follows Commands Hx Seizures: No Numbness or tingling in extremities: No Anesthesia Plan Anesthesia Risk discussed: Yes ASA Class: II Anesthesia Type: General
[2024-12-31] MEDS: CLINDAMYCIN PHOSPHATE/D5W 900 MG/50 ML PIGGYBACK 100 MG IV (07:16)
[2024-12-31] MEDS: SODIUM CHLORIDE IRRIG SOLUTION 3,000 ML 25 ML IR (07:46)
[2024-12-31] MEDS: LIDOCAINE 1% 20ML MDV 20 ML (07:46)
--- NOTE | 2024-12-31 09:07 | P.OP_ITS ---
Date of procedure: 12/31/24 Pre-op Diagnosis:: Umbilical hernia Post-op Diagnosis:: Same Procedure performed:: Laparoscopically directed open umbilical hernia repair, chronically incarcerated, with placement of large (8 cm) Bard Ventralex mesh. (Diagnostic laparoscopy with open umbilical hernia repair) Surgeon:: Igor Jensen MD Anesthesia: DEMARCUS Estimated blood loss (mL): 10 Operative findings:: She had relatively small defect measuring slightly less than 2 cm with a moderate amount of chronically incarcerated edematous omentum. There was a large hernia sac. Operative note:: Consent was obtained and patient was taken to the operating room. She was given preoperative intravenous antibiotic. In the operating room she was placed in a supine position. General anesthesia was induced via endotracheal tube. Trevino catheter was placed. Abdomen was prepped and draped in the standard surgical fashion. 5 mm optical trocar was inserted in the left subcostal area and abdominal cavity was entered. CO2 pneumoperitoneum was achieved to 15 mmHg. Laparoscopic surveillance was carried out. There was evidence of chronically incarcerated omentum and hernia near her umbilicus. An additional 5 mm trocar was inserted in the left lateral lower abdomen. With traction ultimately the chronically incarcerated omentum was able to be reduced from the defect. There was edema within the omentum. Attachments to the peritoneum of the hernia sac were incised with ultrasonic harmonic kita. Hernia sac then returned to the subcutaneous tissue. Size of the defect appeared to be less than 2 cm. This was an umbilical hernia. Given the size plan was made for repair laparoscopically directed after diagnostic laparoscopy using open technique. CO2 pneumoperitoneum was evacuated. Supraumbilical incision was made. Dissection was carried down through subcutaneous tissues to the hernia sac. This was dissected free from surrounding subcutaneous tissues and carefully sharply dissected free from the umbilical subdermis. It was dissected down to the abdominal wall defect. Hernia sac was incised using cautery evacuating pneumoperitoneum and extraneous peritoneum of the hernia sac was excised down to the fascial edges using electrocautery. This was sent off as specimen labeled hernia sac. A large sized Bard Ventralex mesh was then inserted through the defect into the peritoneal cavity. Skin was temporarily closed with towel clips and CO2 pneumoperitoneum was reestablished. The mesh was oriented intracorporeally to cover the defect. It was secured with several firings of the OPTi fix device. Repair appeared adequate. There was good hemostasis. CO2 pneumoperitoneum was once again reevacuated. The Prolene tails of the mesh were sutured superiorly and inferiorly to the fascial edges using interrupted 2- 0 Prolene. The Prolene tails were then cut flush with the fascia. Local anesthetic was infiltrated. The umbilical subdermis was reapproximated to the underlying fascia with a couple of 2-0 Vicryl sutures. Subdermal tissues at the umbilical incision were closed with interrupted 2-0 Vicryl. Skin incisions were closed with 4-0 Monocryl in a subcuticular fashion. Steri-Strips and dressings were applied. . Condition: stable Disposition: PACU Complications:: None immediately apparent
--- NOTE | 2024-12-31 09:14 | EXP.ANES.I ---
[facility] Anesthesia Record Part I Anesthesia Record I Intake, IV Amount: 600 Hydration: Adequate Estimated blood loss (mL): 10 Urine output (mL): 400 Blood Pressure: 146/83 SaO2: 93 Pulse Rate: 65 Airway Patency: Patent Respiratory Rate: 18 Temperature: 98.7 F Patient is:: Awake, Nasal O2 and Stable Stable to PACU at:: 09:20
[2024-12-31] MEDS: KETOROLAC 30MG/ML VIAL 30 MG IV (09:21)
[2024-12-31] MEDS: HYDROMORPHONE 2MG/ML SYRINGE 0.5 MG IV (09:31)
--- NOTE | 2024-12-31 09:50 | SUR.PHASEI ---
0940- Patient vital signs stable and pain is tolerable. Dry cough noted and patient requesting water. Dressing are dry and intact. 0941- Pt transported via stretcher to suzy Chau RN at bedside to give detailed report.
--- NOTE | 2024-12-31 14:27 | P.PNANES_ITS ---
[facility] Anesthesia Record Part II Anesthesia Record Part II Discharge Time: 10:12 Destination: Surgical Day Care (OP Surgery) PACU nurse assessment reviewed?: Yes Patient Condition:: Good Anesthesia Complications:: None Swallowing reflex intact?: Yes Airway Patency: Patent Cyanosis?: No Blood Pressure: 137/83 SaO2: 97 Respiratory Rate: 18 Pulse Rate: 65 Temperature: 98.0 F Mental Status: Alert & Oriented Pain level:: 0 Nausea and/or vomitting:: None Intake, IV Amount: 0 Hydration: Adequate
== END 2024-12-31 10:30 | disposition home or self-care (01) ==
PROVIDERS: PCP Nurse Practitioner Family; Visit Provider Surgery
PROC: 0WQF4ZZ Repair Abdominal Wall, Percutaneous Endoscopic Approach (ICD-10-PCS; CPT 49592; principal; 2024-12-31 07:30)
DX: K42.0 Umbilical hernia with obstruction, without gangrene (principal); I11.0 Hypertensive heart disease with heart failure; I50.9 Heart failure, unspecified; E66.01 Morbid (severe) obesity due to excess calories; Z68.41 Body mass index [BMI] 40.0-44.9, adult; G47.33 Obstructive sleep apnea (adult) (pediatric); J45.909 Unspecified asthma, uncomplicated; E78.5 Hyperlipidemia, unspecified; Z87.891 Personal history of nicotine dependence; K21.9 Gastro-esophageal reflux disease without esophagitis; K58.9 Irritable bowel syndrome, unspecified; I25.10 Atherosclerotic heart disease of native coronary artery without angina pectoris; Z88.0 Allergy status to penicillin; Z88.8 Allergy status to other drugs, medicaments and biological substances; Z79.890 Hormone replacement therapy; Z79.899 Other long term (current) drug therapy; Z79.52 Long term (current) use of systemic steroids
CPT/HCPCS: 49592; 88302; 96374; C1781; J0736; J1100; J1171; J1200; J1885; J2003; J2250; J2405; J2704; J2795; J3010; J7120

== ENCOUNTER 2025-01-12 17:31 | Emergency (ER) | payer MEDICARE, SELFPAY ==
[2025-01-12 17:37] VITALS: BP 149/69; PULSE 76; RESP 20; TEMP 36.9; O2SAT 99; BMI 44.1
--- OUTSIDE RECORDS SUMMARY | 2025-01-12 17:44 | XMS_ITS | Clinical Summary ---
[facility] Address [address] [place] [address] Care Team Providers Care Depot Agent Name Role Phone Provider, No Known Primary [...] C SCREENING 12/03/2016 INFLUENZA VACCINE 09/14/2024 [facility] [employer] Care Teams Depot Agent Relationship Specialty Start Date End Date Provider, No Known [facility] [place] [address] PCP - General 12/02/16
--- OUTSIDE RECORDS SUMMARY | 2025-01-12 17:44 | XMS_ITS | Patient Health Record ---
Author Organization [facility] Address [address] [facility] [address] [place] [address] Care Team Providers Care Machine Cementer Name Role Phone Teena Longo Unavailable [phone] Allergies Allergen (clinical drug ingredient) Drug/Non Drug Allergy documented on EMR Reaction Allergy Type Onset Date Status Information temporarily unavailable TOPROL (uncoded) Unspecified Allergy 02/20/2009 Active Information temporarily unavailable PENICILLIN V POTASSIUM (PENICILLIN V POTASSIUM TAB [...] Problem Status W/U Status Risk Notes Problem Information temporarily unavailable Adolescent dysmenorrhea (N94.6) 02/14/18 Active confirmed DYSMENORRHEA Problem Information temporarily unavailable Epimenorrhea (N92.0) 02/14/18 Active confirmed MENORRHAGIA Plan Of Treatment No Information Medical (General) [...]
--- OUTSIDE RECORDS SUMMARY | 2025-01-12 17:44 | XMS_ITS | Clinical Summary ---
Author Organization [facility] Address [address] [place] [address] Care Team Providers Care Beef Lugger Name Role Phone Jb Gitazechariah Elmore APRN Primary Care Provider [phone] Allergies Active Allergy Reactions Criticality Noted Date [...] - Risk 60-74 years 1-dose series) 2023 [id number] Vaccine (4 - 2024- season) 2024 03/03/2021, [...] Reactive Non Reactive 08/18/2022 4:22 PM EDT [facility] Comment:Screening for HIV 1 & 2 antibodies, and P24 antigen is NONREACTIVE. No confirmatory testing is required. Blood Venous blood specimen / Unknown Venipuncture / Unknown 08/18/2022 2:34 PM EDT 08/18/2022 2:34 PM EDT February R Palmira [facility] BLOOD ORDERABLES Final Result Performing Organization Address City/State/[facility] Co de Phone Number [facility] [address] [place] [address] * Acute Hepatitis Panel (08/18/2022 2:34 PM EDT) Hepatitis B Surf Antigen Negative Negative 08/18/2022 5:18 PM EDT [facility] Hepatitis C Antibody Negative Negative 08/18/2022 5:18 PM EDT [facility] Hepatitis A Antibody IgM Negative Negative 08/18/2022 5:18 PM EDT [facility] Hepatitis B Core Antibody IgM Negative Negative 08/18/2022 5:18 PM EDT [facility] Blood Venous blood specimen / Unknown Venipuncture / Unknown 08/18/2022 2:34 PM EDT 08/18/2022 2:34 PM EDT February Palmira [facility] BLOOD ORDERABLES Final Result [facility] [address] [place] [address] from Last 3 Months or Most Recently Relevant to Health Maintenance [place] [address] [place] [address] MEDICARE Care Teams Beef Lugger Relationship Specialty Start Date End Date Gita Muhammad APRN [address] [place] [address] PCP - General 06/25/22
--- NOTE | 2025-01-12 17:55 | CT_ITS ---
PROCEDURE INFORMATION: Exam: CT Abdomen And Pelvis With Contrast Exam date and time: 01/12/2025 7:33 PM Age: 59 years old Clinical indication: Other: Pain pump exposed TECHNIQUE: Imaging protocol: Computed tomography of the abdomen and pelvis with contrast. Radiation optimization: All CT scans at this facility use at least one of these dose optimization techniques: automated exposure control; mA and/or kV adjustment per patient size (includes targeted exams where dose is matched to clinical indication); or iterative reconstruction. Contrast material: ISOVUE; Contrast volume: 75 ml; Contrast route: IV; COMPARISON: CT ABDOMEN PELVIS WO/W CON 11/12/2024 9:58 AM FINDINGS: Lungs: No basilar infiltrate or pleural effusion appreciated. Liver: Several low-attenuation cysts are demonstrated within the liver which have been seen previously and require no additional follow-up. Mild stable intrahepatic ductal dilatation again noted that is probably post cholecystectomy. Gallbladder and biliary ducts: The gallbladder is not visualized and felt to be absent. No dilatation of the common duct. Pancreas: No abnormality of the pancreas appreciated. Spleen: Normal. No splenomegaly. Adrenal glands: Low-attenuation left adrenal mass measuring 2.3 x 2.1 cm that is not significantly changed in size compared to 01/06/2022. Probable adenoma. No follow-up required. Normal-appearing right adrenal gland. Kidneys and ureters: Normal-size kidneys which show no evidence of obstruction or perinephric stranding. Stomach and bowel: There is no distension of the stomach or gastric wall abnormality appreciated. There is no small bowel dilatation identified. The small bowel loops appear unremarkable. The cecum is mobile and directed anteriorly. The ascending transverse and left colon are stool-filled. The sigmoid colon is tortuous. Left-sided diverticuli with no evidence of acute diverticulitis. The distal sigmoid colon is mainly decompressed. There is no rectal impaction. Appendix: Normal retrocecal appendix right lower quadrant. Intraperitoneal space: Unremarkable. No free air. No significant fluid collection. Vasculature: Normal caliber aorta with mild atherosclerotic plaquing distally. Lymph nodes: Unremarkable. No enlarged lymph nodes. Urinary bladder: Unremarkable as visualized. Reproductive: Surgical absence of the uterus with surgical clips present within the pelvis. Neither ovary is visualized. Bones/joints: Advanced degenerative disc disease lower lumbar spine. No acute bony abnormality is appreciated. Soft tissues: An umbilical hernia is again demonstrated which measures in the 5 x 4.6 cm range. The umbilical hernia is fluid filled. This is a new finding. There is no gas within the hernia or wall thickening. There may be faint peripheral enhancement. There is a pain pump within the posterior right flank again demonstrated. The posterior/superior aspect of the pain pump appears to extend through the posterior skin surface on this examination which is a new finding. No surrounding fatty inflammation is appreciated. The tips of the posterior intrathecal catheter is within the upper lumbar spine near L1-L2 and T9. IMPRESSION: 1. Umbilical hernia measuring 5 x 4.6 cm which is now fluid-filled. Clinical correlation for signs of infection in the region of the umbilicus with possible early abscess formation is recommended. 2. Pain pump posterior upper right flank with the posterior/superior aspect of the pump appearing to extend through the skin surface. Clinical correlation recommended. No abnormality of the subcutaneous fat surrounding the pump is appreciated. 3. At least mild constipation. 4. Several chronic findings are noted within the abdomen and pelvis.
--- NOTE | 2025-01-12 18:19 | ED_ITS ---
<Statement entered by Destini Marshall DO - 01/12/25 23:21> I was consulted by the VIRI, and we discussed the complexity of problems being addressed. I approve the treatment and management plan for this patient's care in the emergency department, thus performing a substantial portion of the medical decision making. Destini Marshall DO Discharge Plan Disposition Patient Disposition: Home, Self-Care Condition: Good Prescriptions Prescriptions: No Action latanoprost 0.005 % drops 1 drp Eye-Both HS cetirizine 10 mg tablet 10 mg PO DAILY Patient Comments: TAKE 1 TABLET BY MOUTH ONCE DAILY brimonidine 0.2 % drops 1 drp Eye-Both DAILY Patient Comments: USE 1 DROP IN BOTH EYES DAILY IN THE MORNING WAIT 15 MINUTES BEFORE USING OTHER DROPS FOR BEST RESULTS dorzolamide 2 % drops 1 drp Eye-Both DAILY Patient Comments: INSTILL 1 DROPS IN THE MORNING INTO EACH EYE WAIT 15 MIN BETWEEN OTHER DROPS cholecalciferol (vitamin D3) 125 mcg (5,000 unit) capsule 125 mcg PO DAILY Qty: 90 3RF topiramate 25 mg tablet 25 mg PO BID Qty: 60 2RF phentermine 37.5 mg capsule 37.5 mg PO DAILY Qty: 30 0RF Rx Instructions: must administer 30 minutes before or 1-2 hours after breakfast losartan 50 mg tablet 50 mg PO DAILY Qty: 30 5RF promethazine-DM 6.25-15 mg/5 mL syrup 5 ml PO Q4-6H PRN (Reason: cough) Qty: 118 1RF prednisone 20 mg tablet 20 mg PO BID Qty: 14 0RF Rx Instructions: Take two tablets on days 1-4. Take one tablet daily on days 5-8. On days 9-12 take one half tablet. levothyroxine 125 mcg tablet See Rx Instructions .ROUTE .COMPLEX Qty: 30 2RF Dose Instruction: Take 1 tablet by mouth once daily Rx Instructions: Take 1 tablet by mouth once daily ropinirole 0.5 mg tablet 0.5 mg PO HS Qty: 30 0RF omeprazole 20 mg capsule,delayed release(DR/EC) 20 mg PO BID Qty: 60 0RF multivitamin Tablet 1 tab PO DAILY pseudoephedrine HCl [Sudafed] 30 mg tablet 60 mg PO Q6H PRN (Reason: nasal congestion) Rx Instructions: Start with one tablet, increase to two tablets per dose if one not effective hydrocodone-acetaminophen 5-325 mg Tablet 1 - 2 tab PO Q6H PRN (Reason: Pain) Qty: 17 0RF Referrals Follow up/Referrals: Gita Muhammad APRN [Primary Care Provider, Medical] - See instructions Activity Restrictions/Add. Instructions Additional Instructions/Restrictions: Keep the dressing on your pain pump until you follow-up on Tuesday. Try to refrain from getting the area wet therefore try to do a sponge bath for the next day. Turn for any new signs of infection including drainage, worsening surrounding redness, numbness weakness in your legs or any other neurologic symptoms. Please call the pain team on Tuesday morning to be seen in clinic. Clinical Impressions Clinical Impression: Exposure of implanted material to surrounding tissue Instructions Patient Instructions: DI for Skin Abscess Print Language Print Language: Syriac Discharge ED Provider: Destini Marshall Adult HPI <Su Kimble ([facility]), JONAH - Last Filed: 01/12/25 21:47> General Chief complaint: Skin/Abscess/Foreign Body Stated complaint: pain pump is coming out Time Seen by Provider: 01/12/25 17:46 Mode of Arrival: Ambulatory Source of Information: Patient and Relative Description of Symptoms (Recalled from ER Triage Doc. by RN): joanna presents for her pain pump coming out of her back. the skin is visibly red and you can see the metal of the pain pump. History of Present Illness HPI narrative: 59-year-old female presents for pain pump protruding out of the skin. Patient states pain pump was placed in June by Dr. Canchola. Patient states she was seen on the by Dr. Canchola. Patient states she took a picture of it on January 09 that morning it was very red with an area of drainage and by that night it did opened up and the pump was visual. Patient states it keeps getting caught on things and today when she took a picture she realized that even more of the pump was exposed and it is very tender to touch. Patient states she was not wearing her abdominal binder because she could not find it Related Data Home Medications ?Medication ?Instructions ?Recorded ?Confirmed latanoprost 0.005 % eye drops 1 drp Eye-Both HS 01/04/25 brimonidine 0.2 % eye drops 1 drp Eye-Both DAILY 04/0401/04/25 cetirizine 10 mg tablet 10 mg PO DAILY 04/04/2412/16 dorzolamide 2 % eye drops 1 drp Eye-Both DAILY 5 01/04/25 multivitamin 1 tab PO DAILY 04/20/2412/16 pseudoephedrine HCl 30 mg tablet 60 mg PO Q6H PRN nasa l congestion 12/19/24 01/04/25 (Sudafed) Previous Rx's ?Medication ?Instructions ?Recorded losartan 50 mg tablet 50 mg PO DAILY #30 tabs 09/14 10/08 levothyroxine 125 mcg tablet See Rx Instructions .Rout e 12/03/24 .COMPLEX #30 tabs prednisone 20 mg tablet 20 mg PO BID #14 tabs promethazine-DM 6.25 mg-15 mg/5 mL 5 ml PO Q4-6H PRN c ough #118 mL 12/06/24 oral syrup cholecalciferol (vitamin D3) 125 125 mcg PO DAILY #90 caps 12/13/24 mcg (5,000 unit) capsule phentermine 37.5 mg capsule 37.5 mg PO DAILY #30 caps 12/20/24 topiramate 25 mg tablet 25 mg PO BID #60 tabs hydrocodone 5 mg-acetaminophen 325 1 - 2 tab PO Q6H [place] N Pain #17 tabs 12/31/24 mg tablet omeprazole 20 mg capsule,delayed 20 mg PO BID #60 caps 01/08/25 release ropinirole 0.5 mg tablet 0.5 mg PO HS #30 tabs Allergies Allergy/AdvReac Type Severity Reaction Status Date / Time Penicillins Allergy Hives Verified 01/04/25 13:41 topiramate (From Topamax) Allergy Rash Verified 01/04/25 13:41 PFS <Su Kimble ([facility]), BILLING CONTROL CLERK - Last Filed: 01/12/25 21:47> PFS Disclaimer: The information contained in this section may have been updated after the patient was seen, as this information can be updated by other users. Medical History Encounter for pre-operative cardiovascular clearance Obstructive sleep apnea syndrome, severe Nasal septal spur GERD (gastroesophageal reflux disease) Deviated nasal septum Edema of both lower extremities History of 2019 novel coronavirus disease (COVID-19) Family history of lung cancer Stopped smoking with greater than 30 pack year history Lung nodule Asthma Migraine History of back pain History of gastroesophageal reflux (GERD) Congestive heart failure IBS (irritable bowel syndrome) Hyperlipidemia CAD (coronary artery disease) BRAULIO (obstructive sleep apnea) HTN (hypertension) Ex-smoker Morbid obesity Surgical History S/P insertion of intrathecal pump H/O bilateral salpingo-oophorectomy H/O: hysterectomy History of colonoscopy History of cholecystectomy Family History Other Breast cancer Colon cancer Family history of Alzheimer's disease Family history of COPD (chronic obstructive pulmonary disease) Family history of GERD Family history of TIAs Family history of acute congestive heart failure Family history of asthma Family history of diabetes mellitus type II Family history of hyperlipidemia Family history of hypertension Family history of hypothyroidism Family history of irritable bowel syndrome Family history of kidney stone Family history of migraine headaches Family history of myocardial infarction Heart disease Lung cancer Stroke Social History Smoking Status: Never smoker smoking status start date: yo years smoked: 14 smoking status stop date: 05/21/2004 alcohol intake: never substance use type: denies use current occupational status: disabled Travel in the last 8 weeks?: None household members: spouse and children housing: house lives independently: No marital status: current occupational exposures/hazards: No caffeine: Yes Have you lived/traveled outside US in past 30 days?: No Contact w/someone who lives/traveled outside US past 30 days?: No Exposure to someone with infectious disease in past 14 days?: No Do you have a fever (greater than 100.4 F or 38 C)?: No Have you tested positive for COVID-19?: No Exposed to someone with COVID-19 in past 14 days?: No Do you have a sore throat?: No Do you have a cough?: No Do you have any weakness?: No Do you have any diarrhea?: No Are you experiencing any unusual bleeding?: No Do you have any muscle aches/pain?: No Do you have any abdominal pain?: No Are you experiencing loss of taste or smell?: No Other Medical History Have you received the Flu Vaccine for this season: Yes Have you received the Pneumonia Vaccine: Yes (12/20/2023) <Su Kimble ([facility]), BILLING CONTROL CLERK - Last Filed: 01/12/25 21:47> ROS Obtained: Yes Systems reviewed as appropriate & no additional complaints except as documented Integumentary/Breasts Skin/Breast: Reports wounds and Reports other Physical Exam <Su Kimble ([facility]), BILLING CONTROL CLERK - Last Filed: 01/12/25 21:47> General General appearance: alert and in no apparent distress Respiratory Respiratory exam: Present normal lung sounds bilaterally Cardiovascular Cardiovascular exam: Present regular rate and normal rhythm Back Exam Back 1 view image: 2 1. redness, tender and pain pump visible though incisions( area about 2cm round) Neurological Exam Neurological exam: Present alert and oriented X3 Skin Skin exam: Present warm and other Medical Decision Making <Su Kimble ([facility]), BILLING CONTROL CLERK - Last Filed: 01/12/25 21:47> Medical Records Medical records reviewed: Yes I reviewed the patient's medical records. Screening: Per USPSTF and CDC recommendations, given the prevalence of disease in our region, it is our hospital?s policy to screen for HIV and viral Hepatitis for all patients aged 18 and over and those with ongoing risk factors. Andres Inquiry Pt receiving controlled substance: No Andres was queried for this patient: No Vital Signs: 01/12/25 17:37 01/12/25 18:57 01/12/25 22:36 Temperature 98.4 F 98.1 F Temperature Source Oral Oral Pulse Rate 62 57 L Pulse Rate [Right Radial] 76 Respiratory Rate 20 16 Blood Pressure 138/71 147/67 H Blood Pressure [Right Arm] 149/69 H Blood Pressure Mean [Right Arm] 95 Blood Pressure Source Automatic Cuff Blood Pressure Source [Right Arm] Automatic Cuff Blood Pressure Position Supine Blood Pressure Position [Right Arm] Sitting 02 Sat by Pulse Oximetry 99 97 Oxygen Delivery Method Room Air Room Air Room Air Lab Data Lab results reviewed: Yes I reviewed the patient's lab results. Lab Results 01/12/25 18:53: WBC 7.8, RBC 4.29, Hgb 11.8 L, Hct 37.5, MCV 87.4, MCH 27.5, M CHC 31.5 L, RDW 16.7, Plt Count 327, MPV 9.5, Neut % (Auto) 67.3, Lymph % (Auto) 19.6, [place] % (Auto) 8.4, Eos % (Auto) 3.8, Baso % (Auto) 0.6, Neut # (Auto) 5.3, Lymph # (Auto) 1.5, [place] # (Auto) 0.7, Eos # (Auto) 0.3, Baso # (Auto) 0.1, Sodium 143, Potassium 3.9, Chloride 104, Carbon Dioxide 30, Anion Gap 12.9, BUN 16, Creatinine 1.00, Estimated Creat Clear 66, Estimated GFR 56 L, Est GFR ( Amer) 68, Glucose 94, Calcium 8.7, Total Bilirubin 0.4, AST 30, ALT 17, Alkaline Phosphatase 112, C-Reactive Protein 5.7 H, Total Protein 8.8 H, Albumin 4.1, Globulin 4.7 H, Albumin/Globulin Ratio 0.9 L 01/12/25 18:53 01/12/25 18:53 Orders (Tests/Meds): ED MEDICATIONS Discontinued Medications Generic Name Dose Route Start Last Admin Trade Name Freq PRN Reason Stop Dose Admin Acetaminophen 650 mg 01/12/25 20:49 01/12/25 21:02 Acetaminophen 325mg Tab PO 01/12/25 20:50 650 mg ONCE ONE Administration Iopamidol 75 ml 01/12/25 19:39 01/12/25 19:41 Iopamidol-370 (76%);100ml Bottle IV 01/12/25 19:40 75 ml ONCE ONE Administration Sodium Chloride 10 ml 01/12/25 19:39 01/12/25 19:41 Sodium Chloride 0.9% 10ml Syr (Rad Only) IV 02/11/25 19:38 10 ml NEEDED PRN Administration Maintain IV Site ORDERS Category Date Time Status CT abdomen pelvis w con Stat Cat Scan 01/12/25 17:55 Completed CBC w/Auto Diff [Complete Blood Count Auto Diff] Stat Lab 01/12/25 18:53 Completed CMP [Comprehensive Metabolic Panel] Stat Lab 01/12/25 18:53 Completed CRP [C-Reactive Protein] Stat Lab 01/12/25 18:53 Completed Medical Decision Narrative: In summary patient is a 59-year-old female who presents to the emergency department for evaluation of pain pump coming out of the skin. Patient is hemodynamically stable upon arrival, afebrile. Pain pump visual through incision. Differential diagnosis includes dehisced pain pump through incision. Initial workup will be conducted with labs, CT. Initial inventions include labs, CT, Tylenol given for headache. Initial workup reviewed by [facility] labs, no abscess noted around pump site on CT. upon repeat evaluation patient resting comfortably, with pain pump being visual through incision patient is at high risk for infection. Talked with Dr. Canchola licensed loan officer assistant Dr. Canchola is out of town and unreachable by phone. Will transfer to for evaluation. Given this [patient was appropriate for discharge at this time and will be discharged with a prescription for? This case was discussed with hospital medicine regarding management? They will meet the patient to their service for continued evaluation at this time? Etc.] <Destini Marshall, DO - Last Filed: 01/12/25 23:25> Vital Signs: 01/12/25 17:37 01/12/25 18:57 01/12/25 22:36 Temperature 98.4 F 98.1 F Temperature Source Oral Oral Pulse Rate 62 57 L Pulse Rate [Right Radial] 76 Respiratory Rate 20 16 Blood Pressure 138/71 147/67 H Blood Pressure [Right Arm] 149/69 H Blood Pressure Mean [Right Arm] 95 Blood Pressure Source Automatic Cuff Blood Pressure Source [Right Arm] Automatic Cuff Blood Pressure Position Supine Blood Pressure Position [Right Arm] Sitting 02 Sat by Pulse Oximetry 99 97 Oxygen Delivery Method Room Air Room Air Room Air Lab Data Lab Results 01/12/25 18:53: WBC 7.8, RBC 4.29, Hgb 11.8 L, Hct 37.5, MCV 87.4, MCH 27.5, M CHC 31.5 L, RDW 16.7, Plt Count 327, MPV 9.5, Neut % (Auto) 67.3, Lymph % (Auto) 19.6, [place] % (Auto) 8.4, Eos % (Auto) 3.8, Baso % (Auto) 0.6, Neut # (Auto) 5.3, Lymph # (Auto) 1.5, [place] # (Auto) 0.7, Eos # (Auto) 0.3, Baso # (Auto) 0.1, Sodium 143, Potassium 3.9, Chloride 104, Carbon Dioxide 30, Anion Gap 12.9, BUN 16, Creatinine 1.00, Estimated Creat Clear 66, Estimated GFR 56 L, Est GFR ( Amer) 68, Glucose 94, Calcium 8.7, Total Bilirubin 0.4, AST 30, ALT 17, Alkaline Phosphatase 112, C-Reactive Protein 5.7 H, Total Protein 8.8 H, Albumin 4.1, Globulin 4.7 H, Albumin/Globulin Ratio 0.9 L Orders (Tests/Meds): ED MEDICATIONS Discontinued Medications Generic Name Dose Route Start Last Admin Trade Name Freq PRN Reason Stop Dose Admin Acetaminophen 650 mg 01/12/25 20:49 01/12/25 21:02 Acetaminophen 325mg Tab PO 01/12/25 20:50 650 mg ONCE ONE Administration Iopamidol 75 ml 01/12/25 19:39 01/12/25 19:41 Iopamidol-370 (76%);100ml Bottle IV 01/12/25 19:40 75 ml ONCE ONE Administration Sodium Chloride 10 ml 01/12/25 19:39 01/12/25 19:41 Sodium Chloride 0.9% 10ml Syr (Rad Only) IV 02/11/25 19:38 10 ml NEEDED PRN Administration Maintain IV Site ORDERS Category Date Time Status CT abdomen pelvis w con Stat Cat Scan 01/12/25 17:55 Completed CBC w/Auto Diff [Complete Blood Count Auto Diff] Stat Lab 01/12/25 18:53 Completed CMP [Comprehensive Metabolic Panel] Stat Lab 01/12/25 18:53 Completed CRP [C-Reactive Protein] Stat Lab 01/12/25 18:53 Completed Medical Decision Narrative: In summary patient is a 59-year-old female who presents to the emergency department for evaluation of pain pump coming out of the skin. Patient is hemodynamically stable upon arrival, afebrile. Pain pump visual through incision. Differential diagnosis includes cellulitis, pump malfunction, underlying abscess, amongst others. Initial workup will be conducted with labs, CT. Initial inventions include labs, CT, Tylenol given for headache. Patient's labs were reviewed and interpreted by myself: CBC showed no leukocytosis, hemoglobin was stable. CMP was unremarkable. CRP 5.7. CT scan was obtained which showed no underlying abscess no concern for overlying cellulitis at this time. I attempted to admit the patient here to the hospital however our hospitalist stated that pain management is not available until Tuesday. I discussed the case with [facility] and after multiple discussions with multiple services, they felt that patient's pain pump could be managed outpatient. They felt that given that there was no abscess or signs of infection at this time that patient was appropriate for discharge home. Pain pump was covered with a dressing patient was advised to return for any acute or worsening signs of infection. Patient was discharged with plan to follow-up with Dr. Canchola on Tuesday. Critical Care <Su Kimble ([facility]), BILLING CONTROL CLERK - Last Filed: 01/12/25 21:47> Critical Care Time Critical Care Time: No
[2025-01-12 18:57] VITALS: BP 138/71; PULSE 62; O2SAT 97
[2025-01-12 19:09] LABS: Hematocrit 37.5 % (37.0-47.0); Hemoglobin 11.8 g/dL (12.2-16.2); Immature Granulocytes % 0.3 %; Mean Corpuscular HGB Conc 31.5 g/dL (31.8-35.4); Mean Corpuscular Hemoglobin 27.5 pg (27.0-31.2); Mean Corpuscular Volume 87.4 fl (81-99); Nucleated Red Blood Cells % 0 %; Platelet Count 327 K/mm3 (142-424); Red Blood Count 4.29 M/mm3 (4.20-5.40); Red Cell Distribution Width-SD 53.7 fL; White Blood Count 7.8 K/mm3 (4.8-10.8)
[2025-01-12 19:11] LABS: Albumin Level 4.1 g/dl (3.5-5.0); Chloride 104 mmol/L (98-107); Potassium 3.9 mmoL/L (3.5-5.1); Sodium 143 mmol/L (136-145)
[2025-01-12 19:14] LABS: Alanine Aminotransferase 17 U/L (12-78); Albumin/Globulin Ratio 0.9 (1.1-1.8); Alkaline Phosphatase 112 U/L (38-126); Anion Gap 12.9 mEq/L (5-15); Aspartate Amino Transferase 30 U/L (14-36); Bilirubin,Total 0.4 mg/dl (0.2-1.3); Blood Urea Nitrogen 16 mg/dl (7-17); Calcium 8.7 mg/dl (8.4-10.2); Carbon Dioxide 30 mmol/L (22.0-30.0); Creatinine Clearance Estimated 66 mL/min (50-200); Creatinine,Serum 1.00 mg/dl (0.52-1.04); Estimated Glomerular Filt Rate 56 ml/min (>60); GFR (African American) 68 ML/MIN (>60); Globulin 4.7 g/dL (1.3-3.2); Glucose 94 mg/dl (74-100); Total Protein,Serum 8.8 g/dl (6.3-8.2)
[2025-01-12 19:20] LABS: C-Reactive Protein 5.7 mg/L (0-4)
--- NOTE | 2025-01-12 19:32 | PC.NURSE ---
Pt transported to CT via wheelchair
[2025-01-12] MEDS: SODIUM CHLORIDE 0.9% 10ML SYR (RAD ONLY) 10 ML IV (19:41)
[2025-01-12] MEDS: IOPAMIDOL-370 (76%);100ML BOTTLE 75 ML IV (19:41)
[2025-01-12] MEDS: ACETAMINOPHEN 325MG TAB 650 MG PO (21:02)
--- NOTE | 2025-01-12 22:27 | PC.NURSE ---
Wound on pt right lower posterior side covered with non adherent bandage, 4x4s, and bacitracin. 4 large Tegaderms uses to seal bandage. Advised to do sponge bathing until Tuesday.
[2025-01-12 22:36] VITALS: BP 147/67; PULSE 57; RESP 16; TEMP 36.7
== END 2025-01-12 22:44 | disposition home or self-care (01) ==
PROVIDERS: Nurse Practitioner Family; Emergency Provider Student in an Organized Health Care Education/Training Program; PCP Nurse Practitioner Family
DX: T85.625A Displacement of other nervous system device, implant or graft, initial encounter (principal)
CPT/HCPCS: 74177; 80053; 85025; 86140; 99284; Q9967

== ENCOUNTER 2025-01-21 09:30 | Outpatient (CLI) | payer MEDICARE, SELFPAY ==
[2025-01-21 10:40] LABS: Hematocrit 35.4 % (37.0-47.0); Hemoglobin 11.2 g/dL (12.2-16.2); Immature Granulocytes % 0.2 %; Mean Corpuscular HGB Conc 31.6 g/dL (31.8-35.4); Mean Corpuscular Hemoglobin 27.9 pg (27.0-31.2); Mean Corpuscular Volume 88.3 fl (81-99); Nucleated Red Blood Cells % 0 %; Platelet Count 267 K/mm3 (142-424); Red Blood Count 4.01 M/mm3 (4.20-5.40); Red Cell Distribution Width-SD 54.4 fL; White Blood Count 6.4 K/mm3 (4.8-10.8)
[2025-01-21 10:47] LABS: Anion Gap 15.4 mEq/L (5-15); Blood Urea Nitrogen 18 mg/dl (7-17); Calcium 9.3 mg/dl (8.4-10.2); Carbon Dioxide 25 mmol/L (22.0-30.0); Chloride 107 mmol/L (98-107); Creatinine,Serum 1.20 mg/dl (0.52-1.04); Estimated Glomerular Filt Rate 46 ml/min (>60); GFR (African American) 55 ML/MIN (>60); Glucose 96 mg/dl (74-100); Potassium 4.4 mmoL/L (3.5-5.1); Sodium 143 mmol/L (136-145)
== END 2025-01-21 23:59 | disposition home or self-care (01) ==
LOC: PREOP 09:30
PROVIDERS: PCP Nurse Practitioner Family; Visit Provider Anesthesiology
DX: Z01.812 Encounter for preprocedural laboratory examination (principal)
CPT/HCPCS: 36415; 80048; 85025

== ENCOUNTER 2025-01-25 07:01 | Day surgery (SDC) | payer MEDICARE, SELFPAY ==
[2025-01-21 10:20] VITALS: BMI 44.1
[2025-01-25] VITALS (11 sets, daily range): BP systolic 107–130; BP diastolic 55–73; PULSE 60–80; RESP 16–18; TEMP 36.3–36.6; O2SAT 95–99
[2025-01-25] MEDS: LACTATED RINGERS 1000ML 1,000 ML 25 ML IV (07:40)
--- NOTE | 2025-01-25 07:58 | EXP.ANES.CKL ---
[facility] Disclaimer: The information contained in this section may have been updated after the patient was seen, as this information can be updated by other users. Medical History Encounter for pre-operative cardiovascular clearance Obstructive sleep apnea syndrome, severe Nasal septal spur GERD (gastroesophageal reflux disease) Deviated nasal septum Edema of both lower extremities History of 2019 novel coronavirus disease (COVID-19) Family history of lung cancer Stopped smoking with greater than 30 pack year history Lung nodule Asthma Migraine History of back pain History of gastroesophageal reflux (GERD) Congestive heart failure IBS (irritable bowel syndrome) Hyperlipidemia CAD (coronary artery disease) BRAULIO (obstructive sleep apnea) HTN (hypertension) Ex-smoker Morbid obesity Surgical History H/O hernia repair S/P insertion of intrathecal pump H/O bilateral salpingo-oophorectomy H/O: hysterectomy History of colonoscopy History of cholecystectomy Family History Other Breast cancer Colon cancer Family history of Alzheimer's disease Family history of COPD (chronic obstructive pulmonary disease) Family history of GERD Family history of TIAs Family history of acute congestive heart failure Family history of asthma Family history of diabetes mellitus type II Family history of hyperlipidemia Family history of hypertension Family history of hypothyroidism Family history of irritable bowel syndrome Family history of kidney stone Family history of migraine headaches Family history of myocardial infarction Heart disease Lung cancer Stroke Social History (Updated 01/25/25 @ 07:36 by Angelina Rosales RN) Smoking Status: Never smoker smoking status start date: yo years smoked: 14 smoking status stop date: 05/21/2004 alcohol intake: never substance use type: denies use current occupational status: disabled Travel in the last 8 weeks?: None household members: spouse and children housing: house lives independently: No marital status: current occupational exposures/hazards: No caffeine: Yes Have you lived/traveled outside US in past 30 days?: No Contact w/someone who lives/traveled outside US past 30 days?: No Exposure to someone with infectious disease in past 14 days?: No Do you have a fever (greater than 100.4 F or 38 C)?: No Have you tested positive for COVID-19?: No Exposed to someone with COVID-19 in past 14 days?: No Do you have a sore throat?: No Do you have a cough?: No Do you have any weakness?: No Are you experiencing any nausea/vomitting?: No Do you have any diarrhea?: No Are you experiencing any unusual bleeding?: No Do you have any muscle aches/pain?: No Do you have any abdominal pain?: No Are you experiencing loss of taste or smell?: No [facility] Anesthesia Checklist Patient Identification Patient Identification: Arm Band and Verbal (Name & ) Structural Data Admitted From: Home Planned Operative Procedure/s: Pain Pump explant Consent for Planned Operative Procedure(s) Verified: Yes Verified Documents: Surgical Consent NPO Status Verified Time NPO: 00:00 Chart Verification Results Verified: ECG Additional verifications Anesthesia Reactions: No Hx Blood Transfusions: No Blood Transfusion Reaction: No Airway Assessment Mallampati Score:: Class II C-Spine Mobility Assessed: Yes TMJ Mobility Assessed: Yes Dentition: Good Dentition Neurological Assessment Level of Consciousness: Awake, Alert and Appropriate Hx Seizures: No Numbness or tingling in extremities: No Anesthesia Plan Anesthesia Risk discussed: Yes Anesthesia Plan: Verified ASA Class: III Anesthesia Type: General
[2025-01-25] MEDS: CLINDAMYCIN PHOSPHATE/D5W 900 MG/50 ML PIGGYBACK 25 MG (09:16)
[2025-01-25] MEDS: LIDOCAINE 1% W/EPI 1:100,000 20ML VIAL 20 ML ×2 (09:37)
[2025-01-25] MEDS: GENTAMICIN 80 MG/2 ML VIAL (09:37)
[2025-01-25] MEDS: SODIUM CHLORIDE 0.9% 20ML VIAL 20 ML IV (09:37)
--- NOTE | 2025-01-25 10:26 | P.PNANES_ITS ---
[facility] Anesthesia Record Part I Anesthesia Record I Intake, IV Amount: 200 Hydration: Adequate Estimated blood loss (mL): 0 Urine output (mL): 0 Blood Products used (#): none Blood Pressure: 130/72 SaO2: 95 Pulse Rate: 66 Airway Patency: Patent Respiratory Rate: 16 Temperature: 97.5 F Patient is:: Drowsy and Stable Stable to PACU at:: 10:24
[2025-01-25] MEDS: KETOROLAC 30MG/ML VIAL 30 MG IV (10:46)
[2025-01-25] MEDS: OXYCODONE 10MG W/APAP 325MG TABLET 1 EACH PO (11:24)
--- NOTE | 2025-01-25 11:29 | EXP.HP ---
History of Present Illness *Admission Date: 01/25/25 *Reason for visit:: Explant intrathecal pain pump system *History of present illness: This patient has a exposed pain pump generator which is infected. We will explant her system today. [facility] Disclaimer: The information contained in this section may have been updated after the patient was seen, as this information can be updated by other users. Medical History Encounter for pre-operative cardiovascular clearance Obstructive sleep apnea syndrome, severe Nasal septal spur GERD (gastroesophageal reflux disease) Deviated nasal septum Edema of both lower extremities History of 2019 novel coronavirus disease (COVID-19) Family history of lung cancer Stopped smoking with greater than 30 pack year history Lung nodule Asthma Migraine History of back pain History of gastroesophageal reflux (GERD) Congestive heart failure IBS (irritable bowel syndrome) Hyperlipidemia CAD (coronary artery disease) BRAULIO (obstructive sleep apnea) HTN (hypertension) Ex-smoker Morbid obesity Surgical History H/O hernia repair S/P insertion of intrathecal pump H/O bilateral salpingo-oophorectomy H/O: hysterectomy History of colonoscopy History of cholecystectomy Family History Other Breast cancer Colon cancer Family history of Alzheimer's disease Family history of COPD (chronic obstructive pulmonary disease) Family history of GERD Family history of TIAs Family history of acute congestive heart failure Family history of asthma Family history of diabetes mellitus type II Family history of hyperlipidemia Family history of hypertension Family history of hypothyroidism Family history of irritable bowel syndrome Family history of kidney stone Family history of migraine headaches Family history of myocardial infarction Heart disease Lung cancer Stroke Social History (Updated 01/25/25 @ 07:36 by Angelina Rosales RN) Smoking Status: Never smoker smoking status start date: 1992-25 yo years smoked: 14 smoking status stop date: 05/21/2004 alcohol intake: never substance use type: denies use current occupational status: disabled Travel in the last 8 weeks?: None household members: spouse and children housing: house lives independently: No marital status: current occupational exposures/hazards: No caffeine: Yes Have you lived/traveled outside [place] in past 30 days?: No Contact w/someone who lives/traveled outside [place] past 30 days?: No Exposure to someone with infectious disease in past 14 days?: No Do you have a fever (greater than 100.4 F or 38 C)?: No Have you tested positive for COVID-19?: No Exposed to someone with COVID-19 in past 14 days?: No Do you have a sore throat?: No Do you have a cough?: No Do you have any weakness?: No Are you experiencing any nausea/vomitting?: No Do you have any diarrhea?: No Are you experiencing any unusual bleeding?: No Do you have any muscle aches/pain?: No Do you have any abdominal pain?: No Are you experiencing loss of taste or smell?: No Other Medical History Have you received the Flu Vaccine for this season: Yes Have you received the Pneumonia Vaccine: Yes Review of Systems Review of Systems Review of systems:: pertinent systems reviewed and negative unless documented below Meds Home Medications and Allergies Home Medications ?Medication ?Instructions ?Recorded ?Confirmed ?Type latanoprost 0.005 % eye drops 1 drp Eye-Both HS 06/28/23 01/25/25 History brimonidine 0.2 % eye drops 1 drp Eye-Both DAILY 04/04/24 01/25/25 History cetirizine 10 mg tablet 10 mg PO DAILY 04/04/24 01/25/25 History dorzolamide 2 % eye drops 1 drp Eye-Both DAILY 04/04/24 01/25/25 History multivitamin 1 tab PO DAILY 04/20/24 01/25/25 History losartan 50 mg tablet 50 mg PO DAILY #30 tabs 10/01/24 01/25/25 Rx levothyroxine 125 mcg tablet See Rx Instructions .Route 12/03/24 01/25/25 Rx .COMPLEX #30 tabs cholecalciferol (vitamin D3) 125 125 mcg PO DAILY #90 caps 12/13/24 01/25/25 Rx mcg (5,000 unit) capsule hydrocodone 5 mg-acetaminophen 325 1 - 2 tab PO Q6H PRN Pain #17 tabs 12/31/24 01/25/25 Rx mg tablet omeprazole 20 mg capsule,delayed 20 mg PO BID #60 caps 01/08/25 01/25/25 Rx release ropinirole 0.5 mg tablet 0.5 mg PO HS #30 tabs 01/08/25 01/25/25 Rx phentermine 37.5 mg capsule 37.5 mg PO DAILY #30 caps 01/23/25 01/25/25 Rx topiramate 25 mg tablet 25 mg PO BID #60 tabs 01/23/25 01/25/25 Rx oxycodone 10 mg tablet 10 mg PO Q4H PRN pain #180 tabs 01/24/25 01/25/25 Rx New Prescriptions to Start Prescriptions: Allergies Allergy/AdvReac Type Severity Reaction Status Date / Time Penicillins Allergy Hives Verified 01/25/25 07:21 Exam Data for Last 24 hours Vital signs and Labs for Last 24 Hours: Temp Pulse Resp BP Pulse Ox O2 Del Method 97.8 F 60 18 113/63 98 Room Air 01/25/25 11:05 01/25/25 11:05 01/25/25 11:05 01/25/25 11:05 01/25/25 11:05 01/25/25 11:05 I & O for Last 24 hours: Intake & Output 01/22/25 01/23/25 01/24/25 01/25/25 11:59 11:59 11:59 11:59 Intake Total 279.167 / 279.167 Balance 279.167 / 279.167 *Routine HEENT Exam Head: Present normocephalic Eye: Present EOMI ENT: Present mucous membranes moist *Routine Respiratory Exam Respiratory: Present CTA bilaterally *Routine Cardiovascular Exam Cardiovascular: Present Normal S2 *Routine Abdominal Exam Abdominal: Present soft *Routine Rectal Exam Rectal:: deferred *Routine Genitalia Exam Genitalia:: deferred Assessment and Plan *Assessment and plan (1) Exposure of implanted material to surrounding tissue: Status: Acute Qualifiers: Encounter type: subsequent encounter Qualified Code(s): T83.729D - Exposure of other prosthetic materials into organ or tissue, subsequent encounter Category: Medical Code(s): T83.729A - Exposure of other prosthetic materials into organ or tissue, initial encounter Plan Explant of intrathecal pain pump system
--- NOTE | 2025-01-25 11:30 | EXP.OP.NOTE ---
Date of procedure: 01/25/25 Pre-op Diagnosis:: Exposed intrathecal pain pump generator with infected pain pump pocket Post-op Diagnosis:: Same Procedure performed:: Explant pain pump system Surgeon:: Nilson Canchola MD TRANSPORTER DRIVER:: Tre Lyles Anesthesia: DEMARCUS Estimated blood loss (mL): 5 Clinical Note:: This patient is a pleasant 59-year-old white female who had pain pump implanted in June. Over Thanks weekend she presented with breakdown of her generator pocket and exposed pain pump generator with infected pocket. She has been on antibiotics. With exposed hardware we will explant her pain pump system today. Patient has been placed on oral pain medications. Operative findings:: None Operative note:: Informed consent was obtained risk and benefits of the procedure was explained to the patient. The patient was taken to the operating room placed prone on the procedure table. She was prepped and draped in sterile fashion. The skin and subcutaneous tissues overlying the pain pump generator were anesthetized using lidocaine. I made an incision dissected out the pain pump generator. The pocket was not grossly infected there was no overt pus. The catheter was disconnected. The skin and subcutaneous tissues overlying the catheter anchor at the spine was anesthetized using lidocaine. I made an incision dissected out the catheter anchor and pulled the catheter out completely. We did have some CSF leakage. We did close the fascia with 2-0 Prolene. Both incisions were then irrigated and closed with 2-0 Vicryl followed by 3-0 nylon. Patient tolerated the procedure well with no complications. Patient was discharged home she did have some pain she was given Percocet and encouraged to take her oral pain medications. She was discharged home neurologically intact. Plan and disposition: Will follow-up with this patient in 1 week for wound check. She can continue her oral medications. We will revisit replacing her pump after 6 weeks or when all incisions have healed.. Condition: stable Disposition: PACU Complications:: None
--- NOTE | 2025-01-25 11:50 | SUR.PHASEII ---
patient complaints of migraine and vomiting. notified md before discharge. md assessed. instructed to lay flat at home and can use over the counter excedrin as needed for the migraines. instructed to keep hydrated.
--- NOTE | 2025-01-25 16:02 | EXP.ANES.II ---
[facility] Anesthesia Record Part II Anesthesia Record Part II Discharge Time: 10:54 Destination: Surgical Day Care (OP Surgery) PACU nurse assessment reviewed?: Yes Patient Condition:: Good Anesthesia Complications:: None Swallowing reflex intact?: Yes Airway Patency: Patent Cyanosis?: No Blood Pressure: 115/67 SaO2: 96 Respiratory Rate: 18 Pulse Rate: 61 Temperature: 97.8 F Mental Status: Alert & Oriented Pain level:: 9 Nausea and/or vomitting:: None Intake, IV Amount: 0 Hydration: Adequate
== END 2025-01-25 11:55 | disposition home or self-care (01) ==
PROVIDERS: PCP Nurse Practitioner Family; Visit Provider Anesthesiology
PROC: (CPT 62365; principal; 2025-01-25 08:25)
DX: T83.729A Exposure of other prosthetic materials into organ or tissue, initial encounter (principal); T85.738A Infection and inflammatory reaction due to other nervous system device, implant or graft, initial encounter; I25.10 Atherosclerotic heart disease of native coronary artery without angina pectoris; I11.0 Hypertensive heart disease with heart failure; I50.9 Heart failure, unspecified; Z90.49 Acquired absence of other specified parts of digestive tract; Z90.710 Acquired absence of both cervix and uterus; Z90.722 Acquired absence of ovaries, bilateral; Z90.79 Acquired absence of other genital organ(s); Z87.891 Personal history of nicotine dependence; Z88.0 Allergy status to penicillin; Y70.1 Therapeutic (nonsurgical) and rehabilitative anesthesiology devices associated with adverse incidents
CPT/HCPCS: 62365; 96374; J0736; J1580; J1885; J2003; J2004; J2405; J2704; J3010; J7120